=== PATIENT | male | born 1975 ===

== ENCOUNTER 2018-04-13 10:36 | Inpatient (IN) | payer OTHER ==
[2018-04-13 10:40] VITALS: BMI 31.5
[2018-04-13 10:49] LABS: BASO # 0.1 K/uL (0.0-0.2); BASO % 0.4 % (0.0-2.0); EOS # 3.3 K/uL (0.0-0.7); EOS % 16.7 % (0.0-4.0); HEMOGLOBIN 17.3 g/dL (12.0-18.0); LYMPH # 10.4 K/uL (1.0-4.3); LYMPH % 51.8 % (20.0-40.0); MEAN CELL VOLUME 95.7 fL (80.0-94.0); MEAN CORPUSCULAR HEMOGLOBIN 31.1 pg (27.0-31.0); MEAN CORPUSCULAR HGB CONC 32.5 g/dL (33.0-37.0); MEAN PLATELET VOLUME 8.1 fL (7.2-11.7); MONO # 0.9 K/uL (0.0-0.8); MONO % 4.6 % (0.0-10.0); NEUT # 5.3 K/uL (1.8-7.0); NEUT % 26.5 % (50.0-75.0); PLATELET COUNT 241 K/uL (130-400); RBC 5.57 Mil/uL (4.40-5.90); RED CELL DISTRIBUTION WIDTH 12.9 % (11.5-14.5)
[2018-04-13] MEDS ORDERED: Heparin25000 units/250ml 1/2NS 25,000 UNITS/250 ML BAG IV STA (10:53)
[2018-04-13] MEDS ORDERED: Sodium Chloride 0.9% 1,000 ML IV STA (10:53)
[2018-04-13] MEDS ORDERED: Aspirin 325 mg EC Tablets PO STA (10:53)
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
[2018-04-13 10:58] LABS: INR 1.2; PROTHROMBIN TIME 12.8 SECONDS (9.7-12.2)
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
[2018-04-13 11:02] LABS: ALB/GLOB RATIO 1.6 (1.0-2.1); ALBUMIN 4.3 g/dL (3.5-5.0); BLOOD UREA NITROGEN 18 mg/dL (9-20); CALCIUM 8.8 mg/dl (8.6-10.4); GFR NON-AFRICAN AMERICAN > 60
[2018-04-13] MEDS ORDERED: Midazolam 2 MG/2 ML VIAL IVP ONE (11:04)
[2018-04-13] MEDS ORDERED: Midazolam 2 MG/2 ML VIAL ONE ×2 (11:04→11:43)
[2018-04-13 11:06] LABS: ALT/SGPT 190 U/L (21-72); AST/SGOT 150 U/L (17-59)
[2018-04-13] MEDS ORDERED: Iodixanol 320 MG/ML 200 ML BOTTLE IV ONE (11:11)
[2018-04-13] MEDS: Fosphenytoin 1,000 MG in Sodium Chloride 0.9% 50 ML IV STA ×2 (11:22→12:15)
[2018-04-13] MEDS ORDERED: Lidocaine 2% MPF (5 ml) Inj ONE (11:28)
[2018-04-13] MEDS ORDERED: Rocuronium 10 mg/ml (5 ml) ONE (11:43)
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
[2018-04-13] MEDS: Midazolam 50 mg/10 ml 100 MG in Dextrose 5% In Water 80 ML IV SCH (11:51)
[2018-04-13] MEDS ORDERED: Heparin25000 units/250ml 1/2NS 25,000 UNITS/250 ML BAG IV ONE (11:56)
--- NOTE | 2018-04-13 12:00 | CP.PCM.HP ---
<Maggie Aguilar V - Last Filed: 04/13/18 15:23> Meds Allergies/Adverse Reactions: Allergies Allergy/AdvReac Type Severity Reaction Status Date / Time No Known Allergies Allergy Unverified 04/13/18 10:42 Results - Vital Signs Recent Vital Signs: Last Vital Signs Temp 94.8 F L 04/13/18 13:00 Pulse 87 04/13/18 13:21 Resp 23 04/13/18 13:21 BP 102/72 04/13/18 13:21 Pulse Ox 100 04/13/18 13:21 - Labs Result Diagrams: 04/13/18 10:46 04/13/18 13:29 Labs: Laboratory Results - last 24 hr 04/13/18 04/13/18 04/13/18 10:46 10:46 10:46 WBC 20.0 H RBC 5.57 Hgb 17.3 Hct 53.3 H MCV 95.7 H MCH 31.1 H MCHC 32.5 L RDW 12.9 Plt Count 241 MPV 8.1 Neut % (Auto) 26.5 L Lymph % (Auto) 51.8 H [place] % (Auto) 4.6 Eos % (Auto) 16.7 H Baso % (Auto) 0.4 Neut # (Auto) 5.3 Lymph # (Auto) 10.4 H [place] # (Auto) 0.9 H Eos # (Auto) 3.3 H Baso # (Auto) 0.1 Neutrophils % (Manual) 25 L Lymphocytes % (Manual) 43 H Reactive Lymphs % 8 H Monocytes % (Manual) 7 Eosinophils % (Manual) 17 H Platelet Estimate Normal RBC Morphology Normal PT 12.8 H INR 1.2 APTT 34 Sodium 135 Potassium 3.3 L Chloride 101 Carbon Dioxide 18 L Anion Gap 20 BUN 18 Creatinine 1.3 Est GFR ( Amer) > 60 Est GFR (Non-Af Amer) > 60 Random Glucose 255 H Hemoglobin A1c Calcium 8.8 Total Bilirubin 0.8 AST 150 H ALT 190 H Alkaline Phosphatase 69 Lactate Dehydrogenase 1027 H Total Creatine Kinase 154 Troponin I 0.0150 Total Protein 6.9 Albumin 4.3 Globulin 2.6 Albumin/Globulin Ratio 1.6 Urine Color Urine Clarity Urine pH Ur Specific [place] Urine Protein Urine Glucose (UA) Urine Ketones Urine Blood Urine Nitrate Urine Bilirubin Urine Urobilinogen Ur Leukocyte Esterase Urine WBC (Auto) Urine RBC (Auto) Ur Squamous Epith Cells Urine Bacteria Urine Opiates Screen Urine Methadone Screen Ur Barbiturates Screen Ur Phencyclidine Scrn Ur Amphetamines Screen U Benzodiazepines Scrn U Oth Cocaine Metabols U Cannabinoids Screen Blood Type Antibody Screen 04/13/18 04/13/18 04/13/18 10:53 10:53 13:19 WBC RBC Hgb Hct MCV MCH MCHC RDW Plt Count MPV Neut % (Auto) Lymph % (Auto) [place] % (Auto) Eos % (Auto) Baso % (Auto) Neut # (Auto) Lymph # (Auto) [place] # (Auto) Eos # (Auto) Baso # (Auto) Neutrophils % (Manual) Lymphocytes % (Manual) Reactive Lymphs % Monocytes % (Manual) Eosinophils % (Manual) Platelet Estimate RBC Morphology PT INR APTT Sodium Potassium Chloride Carbon Dioxide Anion Gap BUN Creatinine Est GFR ( Amer) Est GFR (Non-Af Amer) Random Glucose Hemoglobin A1c 5.6 Calcium Total Bilirubin AST ALT Alkaline Phosphatase Lactate Dehydrogenase Total Creatine Kinase Troponin I Total Protein Albumin Globulin Albumin/Globulin Ratio Urine Color Urine Clarity Urine pH Ur Specific [place] Urine Protein Urine Glucose (UA) Urine Ketones Urine Blood Urine Nitrate Urine Bilirubin Urine Urobilinogen Ur Leukocyte Esterase Urine WBC (Auto) Urine RBC (Auto) Ur Squamous Epith Cells Urine Bacteria Urine Opiates Screen Positive H Urine Methadone Screen Negative Ur Barbiturates Screen Negative Ur Phencyclidine Scrn Negative Ur Amphetamines Screen Negative U Benzodiazepines Scrn Positive U Oth Cocaine Metabols Negative U Cannabinoids Screen Negative Blood Type O POSITIVE Antibody Screen Negative 04/13/18 04/13/18 13:19 13:29 WBC RBC Hgb Hct MCV MCH MCHC RDW Plt Count MPV Neut % (Auto) Lymph % (Auto) [place] % (Auto) Eos % (Auto) Baso % (Auto) Neut # (Auto) Lymph # (Auto) [place] # (Auto) Eos # (Auto) Baso # (Auto) Neutrophils % (Manual) Lymphocytes % (Manual) Reactive Lymphs % Monocytes % (Manual) Eosinophils % (Manual) Platelet Estimate RBC Morphology PT INR APTT Sodium 137 Potassium 4.6 Chloride 102 Carbon Dioxide 25 Anion Gap 14 BUN 19 Creatinine 1.2 Est GFR ( Amer) > 60 Est GFR (Non-Af Amer) > 60 Random Glucose 178 H D Hemoglobin A1c Calcium 8.1 L Total Bilirubin 0.7 AST 281 H D ALT 359 H D Alkaline Phosphatase 88 Lactate Dehydrogenase Total Creatine Kinase Troponin I Total Protein 6.7 Albumin 4.2 Globulin 2.5 Albumin/Globulin Ratio 1.6 Urine Color Yellow Urine Clarity Hazy Urine pH 7.0 Ur Specific [place] 1.029 Urine Protein 3+ H Urine Glucose (UA) 1+ H Urine Ketones Negative Urine Blood 1+ H Urine Nitrate Negative Urine Bilirubin Negative Urine Urobilinogen Normal Ur Leukocyte Esterase Neg Urine WBC (Auto) 3 Urine RBC (Auto) 10 H Ur Squamous Epith Cells < 1 Urine Bacteria Rare Urine Opiates Screen Urine Methadone Screen Ur Barbiturates Screen Ur Phencyclidine Scrn Ur Amphetamines Screen U Benzodiazepines Scrn U Oth Cocaine Metabols U Cannabinoids Screen Blood Type Antibody Screen Assessment & Plan (1) Cardiac arrest Status: Acute (2) STEMI (ST elevation myocardial infarction) Status: Acute (3) Leukocytosis Status: Acute (4) Transaminitis Status: Acute (5) Myoclonic jerking Status: Acute (6) Prophylactic measure Status: Acute Attending/Attestation - Attestation I have personally seen and examined this patient.: Yes I have fully participated in the care of the patient.: Yes I have reviewed all pertinent clinical information: Yes Notes (Text): This is a Imtiaz Dumonte brought in by 2 friends. Following a witnessed respiratory arrest noted that patient was speaking prior to while trying to apparently fix his car however when patient was reassessed by his friend noted that he was cyanotic mottled agonal breathing frothing at the mouth he pulled a mild bica rbonate attempted to shake him however he did not respond called 911 please to arrive to started compressions paramedics arrived resumed compressions 1 round with IV. Brought to the hospital prior to the ED needed a second dose of epi in the ED had pulse code heart protocol was initiated patient noted to have seizure in the ED as well brought up to cardiac cath had seizure in spite of Versed and Cerebyx anesthesia was called to give additional sedation. Following completion of cath noted for vasospasm only. Patient brought to the intensive care unit code freeze initiated. Neuro on board help appreciated CT head ordered patient started on empiric antibiotic coverage given leukocytosis blood cultures and urine culture was completed. Patient per discussion with a friend who is present noted to be undergoing stress with his and they are currently unclear what medical history we will try to obtain from [facility] however they will not release information to us given inaccurate date of and patient noted to have lost his wallet per friend. 1. Cardiopulmonary arrest Assessment/plan Unclear etiology will need to rule out drugs unable to obtain further information with regards to patient's medical history Intubated in the field Code heart initiated in ED given given EKG findings Code heart cardiac cath by Dr. Brady help appreciated Noted coronary vasospasm per discussion with Dr. Brady and no longer needs heparin drip Code freeze patient admitted to the intensive care unit Case discussed with Dr. Sheriff Patient is on vent Neuro on board help appreciated 2. Anoxic brain injury Assessment/plan Noted at least 15-20 minutes prior to [place] based on discussions with both family friend, mcat tutor, and emergency room staff CT head ordered Neurology neuro on board Code freeze initiated Patient is on sedation and likely paralytic noted mild type jerks both upper portion of the body as well as the left lower extremity 3. Leukocytosis Assessment/plan Likely inflammatory response given the possible rest Blood cultures x2 ordered UA urine culture ordered Pro-calcitonin ordered Patient started on empiric IV antibiotic therapy including Zosyn and vancomycin 4. Transaminitis Assessment/plan Either acute phase reactant or reactive secondary to arrest Hepatitis panel ordered 5. Coronary vasospasm Assessment/plan Cardiology on board help appreciated Code heart findings as of April 13, 2018 Will need to follow you UDS 5. Prophylactic measure Assessment/plan Per code heart protocol patient did receive aspirin, Brilinta, heparin bolus Code freeze candidate Sedation Empiric antibiotics If CT head is negative for any type of bleed DVT prophylaxis Neurochecks Awaiting patient family was told by family friend noted in resident prior to note that because it is on his way and noted patient does not have a good rapport with his However we will need to follow-up in terms of likely that the make decisions for the patient When patient identity is confirmed please follow-up with his PMD in regards to full information terms of his medical history <Dave Samuels - Last Filed: 04/13/18 18:52> History of Present Illness - History of Present Illness History of Present Illness: Dvae Samuels PGY1 H&P for Dr. Aguilar History obtained as per Dodie and , friend of patient. 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 Pt is a 41yo M with unknown PMH brought in by EMS after being found by a friend and coworker unresponsive in his car. Patient was in the parking lot of his [facility] [employer] working on his car with the jordan up when he was approached by his friend. At about 9:40am, the patient seemed normal to his friend, they were talking and moving normally, did not appear in acute distress. He appeared to be working on his car. After getting some supplies, friend returned to find patient slumped over in the bulk driver's seat of the car with the car door open and window rolled down, music was on. He was unresponsive, breathing heavily, and his skin looked blue. He was foaming at the mouth as per the friend. He took the patient out of the car, tried to wake up friend but he was unresponsive. He called 911 and police came 10 minutes later. EMS was called. PD first responded and performed compressions until EMS arrived. 1 round of ACLS with epi was performed and ROSC was achieved, as per EMS. Pt was intubated and IO access was obtained in the field. Per mcat tutor, eyes appeared dilated. Skin appeared cyanotic, mottled, and patient was not responsive. No shock was delivered. Rhythm strip appeared to show ST depressions. Patient was transported to the ED. Per mcat tutor, patient became bradycardic and was given dose of epi. In the ED, nurse reported that patient has pulse entire time. As per ED physician, there was about 15-20 minutes total of down time. In the ED, patient had myotonic jerks. Versed and cerebrex were started. SxH: unknown FamH: unknown SocH: social issues, unspecified stressors as per friend. from , marital problems. 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 Allergies: NKDA Meds: unknown PMD: unkown Present on Admission - Present on Admission Any Indicators Present on Admission: No Review of Systems - Review of Systems Systems not reviewed;Unavailable: Altered Mental Status, Intubated Review of Systems: unable to assess review of systems at this time. Past Patient History - Past Social History Smoking Status: Unknown If Ever Smoked - PSYCHIATRIC Hx Substance Use: No Physical Exam - Constitutional Appears: Other - Head Exam Head Exam: ATRAUMATIC, NORMOCEPHALIC - Eye Exam Pupil Exam: Miosis Additional comments: L eye more reactive to light - ENT Exam ENT Exam: Normal Exam Additional comments: endotracheal tube in place - Neck Exam Additional comments: no signs of asphyxiation - Respiratory Exam Respiratory Exam: NORMAL BREATHING PATTERN. absent: Rales, Rhonchi, Wheezes Additional comments: pt on ventilation - Cardiovascular Exam Cardiovascular Exam: REGULAR RHYTHM, +S1, +S2 - GI/Abdominal Exam GI & Abdominal Exam: Normal Bowel Sounds, Soft. absent: Distended - Extremities Exam Extremities exam: Negative for: joint swelling, pedal edema - Back Exam Back exam: absent: rash noted - Neurological Exam Additional comments: unresponsive to commands unresponsive to painful stimuli - Skin Skin Exam: Normal Color Results - Vital Signs Recent Vital Signs: Last Vital Signs Temp 97.5 F L 04/13/18 11:18 Pulse 98 H 04/13/18 11:19 Resp 12 04/13/18 11:18 BP 141/80 04/13/18 11:19 Pulse Ox 100 04/13/18 11:24 - Labs Result Diagrams: 04/13/18 10:46 04/13/18 13:29 Labs: Laboratory Results - last 24 hr 04/13/18 04/13/18 04/13/18 10:46 10:46 10:46 WBC 20.0 H RBC 5.57 Hgb 17.3 Hct 53.3 H MCV 95.7 H MCH 31.1 H MCHC 32.5 L RDW 12.9 Plt Count 241 MPV 8.1 Neut % (Auto) 26.5 L Lymph % (Auto) 51.8 H [place] % (Auto) 4.6 Eos % (Auto) 16.7 H Baso % (Auto) 0.4 Neut # (Auto) 5.3 Lymph # (Auto) 10.4 H [place] # (Auto) 0.9 H Eos # (Auto) 3.3 H Baso # (Auto) 0.1 PT 12.8 H INR 1.2 APTT 34 Sodium 135 Potassium 3.3 L Chloride 101 Carbon Dioxide 18 L Anion Gap 20 BUN 18 Creatinine 1.3 Est GFR ( Amer) > 60 Est GFR (Non-Af Amer) > 60 Random Glucose 255 H Hemoglobin A1c Calcium 8.8 Total Bilirubin 0.8 AST 150 H ALT 190 H Alkaline Phosphatase 69 Lactate Dehydrogenase 1027 H Total Creatine Kinase 154 Troponin I 0.0150 Total Protein 6.9 Albumin 4.3 Globulin 2.6 Albumin/Globulin Ratio 1.6 Blood Type Antibody Screen 04/13/18 04/13/18 10:53 10:53 WBC RBC Hgb Hct MCV MCH MCHC RDW Plt Count MPV Neut % (Auto) Lymph % (Auto) [place] % (Auto) Eos % (Auto) Baso % (Auto) Neut # (Auto) Lymph # (Auto) [place] # (Auto) Eos # (Auto) Baso # (Auto) PT INR APTT Sodium Potassium Chloride Carbon Dioxide Anion Gap BUN Creatinine Est GFR ( Amer) Est GFR (Non-Af Amer) Random Glucose Hemoglobin A1c 5.6 Calcium Total Bilirubin AST ALT Alkaline Phosphatase Lactate Dehydrogenase Total Creatine Kinase Troponin I Total Protein Albumin Globulin Albumin/Globulin Ratio Blood Type O POSITIVE Antibody Screen Negative Assessment & Plan - Assessment and Plan (Free Text) Assessment: 41yo M with unknown PMH brought in by EMS after being found by a friend and coworker unresponsive in his car. 1 round ACLS performed. Code heart, found to have vasospasm. Uncontrolled myoclonic seizures. Plan: Cardiopulmonary arrest Intubated in the field, ACLS performed Code heart in ED Cardiac Cath as per Dr. Jose Antonio trivedi vasospasm, no occlusion Code freeze on mechanical ventilation UDS + benzo, opiates Critical care, Dr. Sheriff consulted - help appreciated Anoxic brain injury downtime of 15-20min f/u CT head seizure activity, myoclonic jerking Versed bobby Corcoran 1500 IV Code freeze Neuro consulted, Dr. Escobar - help appreciated Leukocytosis likely secondary to stress f/u BCx, UCx f/u procal IV Zosyn and vancomycin Transaminitis unknown PMH f/u hepatitis panel Dispo: requiring further information regarding patient's past medical and social history. utilize family members () to provide information so etiology can be determined. Case reviewed with Dr. Aguilar
[2018-04-13 12:06] LABS: EOSINOPHIL 17 % (0-4); LYMPHOCYTE 43 % (20-40); MONOCYTE 7 % (0-10); NEUTROPHIL 25 % (50-75); PLATELET ESTIMATE NORMAL (NORMAL); REACTIVE LYMPHOCYTES 8 % (0-0); TOTAL CELLS COUNTED 100
--- NOTE | 2018-04-13 12:16 | CP.PCM.CON ---
History of Present Illness - History of Present Illness History of Present Illness: 41 Male presented to ER in coma and seizing Patient was cyanotic and frothy prior to EMS arrival Received Epi x 2 in the field Intubated and hypotensive on Levophed Unresponsive to commands and pain EKG shown ST elevations in AVR and diffuse ST deppressions suggestive of L Main occlusion Code heart activated s/p Cath 1. Normal coronaries 2. Normal EF A/P: Likely L Main spasm Vs. severe Hypoxemia Hypotension on pressors Likely hypoxemic brain injury due to prolonged hypoxemia. Poor prognosis ICU management DVT/GI prophylaxis Drug screen Will follow Thanks Past Patient History - Past Social History Smoking Status: Unknown If Ever Smoked - PSYCHIATRIC Hx Substance Use: No Meds Allergies/Adverse Reactions: Allergies Allergy/AdvReac Type Severity Reaction Status Date / Time No Known Allergies Allergy Unverified 04/13/18 10:42 - Medications Medications: Current Medications Midazolam HCl 100 mg/ Dextrose 100 mls @ 2 mls/hr IV .Q24H [facility]; Protocol Last Admin: 04/13/18 11:51 Dose: 2 mls/hr Norepinephrine Bitartrate 4 mg (/ Sodium Chloride) 254 mls @ 15.24 mls/hr IV .[id number] PRN; Protocol PRN Reason: TITRATE PER MD ORDER Last Admin: 04/13/18 11:03 Dose: 15.24 mls/hr Norepinephrine Bitartrate 4 mg (/ Dextrose) 254 mls @ 15.24 mls/hr IV .[id number] PRN; Protocol PRN Reason: TITRATE PER MD ORDER Heparin Sodium/Sodium Chloride (Heparin 36628 Units/250ml 1/2 Normal Saline) 25,000 units in 250 mls @ 11.975 mls/hr IV .[id number] ONE; Protocol Stop: 04/14/18 08:48 Last Admin: 04/13/18 10:53 Dose: 11.975 mls/hr Results - Vital Signs Recent Vital Signs: Last Vital Signs Temp 97.5 F L 04/13/18 11:18 Pulse 98 H 04/13/18 11:19 Resp 12 04/13/18 11:18 BP 141/80 04/13/18 11:19 Pulse Ox 100 04/13/18 11:24 - Labs Result Diagrams: 04/13/18 10:46 04/13/18 10:46 Labs: Laboratory Results - last 24 hr 04/13/18 04/13/18 04/13/18 10:46 10:46 10:46 WBC 20.0 H RBC 5.57 Hgb 17.3 Hct 53.3 H MCV 95.7 H MCH 31.1 H MCHC 32.5 L RDW 12.9 Plt Count 241 MPV 8.1 Neut % (Auto) 26.5 L Lymph % (Auto) 51.8 H [place] % (Auto) 4.6 Eos % (Auto) 16.7 H Baso % (Auto) 0.4 Neut # (Auto) 5.3 Lymph # (Auto) 10.4 H [place] # (Auto) 0.9 H Eos # (Auto) 3.3 H Baso # (Auto) 0.1 Neutrophils % (Manual) 25 L Lymphocytes % (Manual) 43 H Reactive Lymphs % 8 H Monocytes % (Manual) 7 Eosinophils % (Manual) 17 H Platelet Estimate Normal RBC Morphology Normal PT 12.8 H INR 1.2 APTT 34 Sodium 135 Potassium 3.3 L Chloride 101 Carbon Dioxide 18 L Anion Gap 20 BUN 18 Creatinine 1.3 Est GFR ( Amer) > 60 Est GFR (Non-Af Amer) > 60 Random Glucose 255 H Hemoglobin A1c Calcium 8.8 Total Bilirubin 0.8 AST 150 H ALT 190 H Alkaline Phosphatase 69 Lactate Dehydrogenase 1027 H Total Creatine Kinase 154 Troponin I 0.0150 Total Protein 6.9 Albumin 4.3 Globulin 2.6 Albumin/Globulin Ratio 1.6 Blood Type Antibody Screen 04/13/18 04/13/18 10:53 10:53 WBC RBC Hgb Hct MCV MCH MCHC RDW Plt Count MPV Neut % (Auto) Lymph % (Auto) [place] % (Auto) Eos % (Auto) Baso % (Auto) Neut # (Auto) Lymph # (Auto) [place] # (Auto) Eos # (Auto) Baso # (Auto) Neutrophils % (Manual) Lymphocytes % (Manual) Reactive Lymphs % Monocytes % (Manual) Eosinophils % (Manual) Platelet Estimate RBC Morphology PT INR APTT Sodium Potassium Chloride Carbon Dioxide Anion Gap BUN Creatinine Est GFR ( Amer) Est GFR (Non-Af Amer) Random Glucose Hemoglobin A1c 5.6 Calcium Total Bilirubin AST ALT Alkaline Phosphatase Lactate Dehydrogenase Total Creatine Kinase Troponin I Total Protein Albumin Globulin Albumin/Globulin Ratio Blood Type O POSITIVE Antibody Screen Negative
--- NOTE | 2018-04-13 12:58 | CP.PCM.CON ---
History of Present Illness - History of Present Illness History of Present Illness: Chief complaints: Cardiac arrest HPI: Patient is a 41-year-old male name AND, most of the history is unknown, information was taken from the chart. Patient was brought into the emergency room following a cardiac arrest sustained in the field, unclear REASON, patient received 2 epinephrine and CPR, and patient also had episodes of seizure activities. As the patient has abnormal EKG, with the ST elevation, patient underwent emergency angiogram, determined that he had vasospasm of the coronaries. Patient is now in the ICU. He is on full support ventilation Unresponsive. Blood pressure is being supported with the norepinephrine. He is also receiving IV fluid at this time AND SEDATION Past medical history, family history and a further history is unavailable. On examination: Patient is comatose now. He is on ventilator, prvc 18, 500, 100%. Heart rate is 88 bpm the blood pressure is 86/53 saturation is 100%. Norepinephrine drip running at 4 mics per minute also on Versed and IV fluid. Patient's labs reviewed Nonspecific. Chest x-ray ET tube in position. But there is no evidence of any infiltrative changes EKG initially showed ST elevation MA and also ST depressions. Further drug screen and evaluation is currently pending Coronary angiogram is negative Assessment and recommendation: Patient is a 41-year-old male without known medical history had a cardiac event cardiac arrest, prolonged CPR, and a post cardiac arrest and seizure activities likely anoxic. The cause is unclear. Most likely coronary spasm, underlying drugs cannot be ruled out. Will get a neurological evaluation. Patient will need CT scan of the head. On therapeutic hypothermia may be beneficial for this patient. Will control the urodynamics cannot support that the hemodynamics sedation as tolerated DVT GI prophylaxis will support ventilation and will follow the patient Past Patient History - Past Social History Smoking Status: Unknown If Ever Smoked - PSYCHIATRIC Hx Substance Use: No Meds Allergies/Adverse Reactions: Allergies Allergy/AdvReac Type Severity Reaction Status Date / Time No Known Allergies Allergy Unverified 04/13/18 10:42 - Medications Medications: Current Medications Midazolam HCl 100 mg/ Dextrose 100 mls @ 2 mls/hr IV .Q24H [facility]; Protocol Last Admin: 04/13/18 11:51 Dose: 2 mls/hr Norepinephrine Bitartrate 4 mg (/ Sodium Chloride) 254 mls @ 15.24 mls/hr IV .[id number] PRN; Protocol PRN Reason: TITRATE PER MD ORDER Last Admin: 04/13/18 11:03 Dose: 15.24 mls/hr Norepinephrine Bitartrate 4 mg (/ Dextrose) 254 mls @ 15.24 mls/hr IV .[id number] PRN; Protocol PRN Reason: TITRATE PER MD ORDER Heparin Sodium/Sodium Chloride (Heparin 45951 Units/250ml 1/2 Normal Saline) 25,000 units in 250 mls @ 11.975 mls/hr IV .[id number] ONE; Protocol Stop: 04/14/18 08:48 Last Admin: 04/13/18 10:53 Dose: 11.975 mls/hr Sodium Chloride (Sodium Chloride 0.9%) 1,000 mls @ 150 mls/hr IV .[id number] [facility] Results - Vital Signs Recent Vital Signs: Last Vital Signs Temp 97.5 F L 04/13/18 11:18 Pulse 98 H 04/13/18 11:19 Resp 12 04/13/18 11:18 BP 141/80 04/13/18 11:19 Pulse Ox 100 04/13/18 12:34 - Labs Result Diagrams: 04/13/18 10:46 04/13/18 10:46 Labs: Laboratory Results - last 24 hr 04/13/18 04/13/18 04/13/18 10:46 10:46 10:46 WBC 20.0 H RBC 5.57 Hgb 17.3 Hct 53.3 H MCV 95.7 H MCH 31.1 H MCHC 32.5 L RDW 12.9 Plt Count 241 MPV 8.1 Neut % (Auto) 26.5 L Lymph % (Auto) 51.8 H [place] % (Auto) 4.6 Eos % (Auto) 16.7 H Baso % (Auto) 0.4 Neut # (Auto) 5.3 Lymph # (Auto) 10.4 H [place] # (Auto) 0.9 H Eos # (Auto) 3.3 H Baso # (Auto) 0.1 Neutrophils % (Manual) 25 L Lymphocytes % (Manual) 43 H Reactive Lymphs % 8 H Monocytes % (Manual) 7 Eosinophils % (Manual) 17 H Platelet Estimate Normal RBC Morphology Normal PT 12.8 H INR 1.2 APTT 34 Sodium 135 Potassium 3.3 L Chloride 101 Carbon Dioxide 18 L Anion Gap 20 BUN 18 Creatinine 1.3 Est GFR ( Amer) > 60 Est GFR (Non-Af Amer) > 60 Random Glucose 255 H Hemoglobin A1c Calcium 8.8 Total Bilirubin 0.8 AST 150 H ALT 190 H Alkaline Phosphatase 69 Lactate Dehydrogenase 1027 H Total Creatine Kinase 154 Troponin I 0.0150 Total Protein 6.9 Albumin 4.3 Globulin 2.6 Albumin/Globulin Ratio 1.6 Blood Type Antibody Screen 04/13/18 04/13/18 10:53 10:53 WBC RBC Hgb Hct MCV MCH MCHC RDW Plt Count MPV Neut % (Auto) Lymph % (Auto) [place] % (Auto) Eos % (Auto) Baso % (Auto) Neut # (Auto) Lymph # (Auto) [place] # (Auto) Eos # (Auto) Baso # (Auto) Neutrophils % (Manual) Lymphocytes % (Manual) Reactive Lymphs % Monocytes % (Manual) Eosinophils % (Manual) Platelet Estimate RBC Morphology PT INR APTT Sodium Potassium Chloride Carbon Dioxide Anion Gap BUN Creatinine Est GFR ( Amer) Est GFR (Non-Af Amer) Random Glucose Hemoglobin A1c 5.6 Calcium Total Bilirubin AST ALT Alkaline Phosphatase Lactate Dehydrogenase Total Creatine Kinase Troponin I Total Protein Albumin Globulin Albumin/Globulin Ratio Blood Type O POSITIVE Antibody Screen Negative
[2018-04-13 13:33] LABS: SQUAMOUS EPITHIAL < 1 /hpf (0-5); URINE BACTERIA RARE (<OCC); URINE BILIRUBIN NEGATIVE (NEGATIVE); URINE BLOOD 1+ (NEGATIVE); URINE CLARITY Hazy (Clear); URINE COLOR Yellow (YELLOW); URINE GLUCOSE (UA) 1+ mg/dL (Normal); URINE LEUKOCYTE ESTERASE NEG Leu/uL (Negative); URINE PROTEIN 3+ mg/dL (NEGATIVE); URINE UROBILINOGEN NORMAL mg/dL (0.2-1.0)
--- NOTE | 2018-04-13 13:47 | RAD ---
Date of service: 04/13/2018 HISTORY: chest pain COMPARISON: No prior. FINDINGS: In situ ETT, tip of which lies approximately 5.1 cm above alan. NGT is present, the tip which is doubled back upon itself located within the distal esophagus. LUNGS: Bibasilar atelectasis; rule out developing infiltrates PLEURA: No significant pleural effusion identified, no pneumothorax apparent. CARDIOVASCULAR: No aortic atherosclerotic calcification present. Normal cardiac size. No pulmonary vascular congestion. OSSEOUS STRUCTURES: No significant abnormalities. VISUALIZED UPPER ABDOMEN: Normal. OTHER FINDINGS: None. IMPRESSION: ETT as above. NGT is doubled back on itself of within the distal esophagus and should be reposition. These findings discussed with Dr. Nguyen at approximately 1:40 p.m. with written down and read back verification.. Bibasilar atelectasis; rule out
[2018-04-13] MEDS: Sodium Chloride 0.9% 1,000 ML IV SCH ×3 (13:49→21:00)
[2018-04-13] MEDS ORDERED: Rocuronium 10 mg/ml (5 ml) IV ONE (13:50)
[2018-04-13] MEDS ORDERED: Vecuronium 10 mg Inj IV STA (13:51)
[2018-04-13 13:52] LABS: ALB/GLOB RATIO 1.6 (1.0-2.1); ALBUMIN 4.2 g/dL (3.5-5.0); ALT/SGPT 359 U/L (21-72); AST/SGOT 281 U/L (17-59); BLOOD UREA NITROGEN 19 mg/dL (9-20); CALCIUM 8.1 mg/dl (8.6-10.4); GFR NON-AFRICAN AMERICAN > 60
[2018-04-13 13:55] LABS: BARBITURATES, UR NEGATIVE (NEGATIVE); BENZODIAZEPINES, UR POSITIVE (NEGATIVE); OPIATES, UR POSITIVE (NEGATIVE); PHENCYCLIDINE, UR NEGATIVE (NEGATIVE)
[2018-04-13] MEDS ORDERED: Vancomycin 500mg/D5W 100 ml 500 MG/100 ML BAG IVPB SCH (14:15)
--- NOTE | 2018-04-13 14:25 | PCM.TLSTRK ---
TeleStroke Consultation - Consultation This telehealth visit and patient is being seen on: 04/13/18 Telehealth services using bi-directional audio/video at [facility]: [facility] Active/open-ended communication was used to verify the patient's full name, and date of with: Hospital staff/MD at patient's bedside - History of Present Illness Chief/Complaint/History of Present of Illness: The patient is a 41-year-old man with an unknown past medical history who was found in his car by his friend in respiratory distress, later was pulseless, police arrived, started CPR, later EMS arrived, gave epi and then atropine, ROSC achieved, brought to the ED, had several generalized tonic-clonic seizures. EKG showed ST elevation, and the patient was taken to the slab conditioner supervisor, but no occlusion was noted, just vasospasm. The patient is currently in the ICU, still having some spastic movements on Precedex, Versed drip and received Keppra 1000 mg load. On video exam, the patient is intubated, sedated, not responsive to painful stimulus and has jerky myoclonic movements that occur with periodicity. Pupils are reactive on the left and less so on the right, but overall constricted. He does open his eyes spontaneously during these movements. GCS 6T TeleStroke Patient History - Past Family History Pertinent Family History: Problem Relation Age of Onset - Past Social History Smoking Status: Unknown If Ever Smoked - PSYCHIATRIC Hx Substance Use: No Meds Allergies/Adverse Reactions: Allergies Allergy/AdvReac Type Severity Reaction Status Date / Time No Known Allergies Allergy Unverified 04/13/18 10:42 - Medications Medications: Current Medications Midazolam HCl 100 mg/ Dextrose 100 mls @ 2 mls/hr IV .Q24H ROBERT; Protocol Last Admin: 04/13/18 11:51 Dose: 2 mls/hr Norepinephrine Bitartrate 4 mg (/ Sodium Chloride) 254 mls @ 15.24 mls/hr IV .[id number] PRN; Protocol PRN Reason: TITRATE PER MD ORDER Last Admin: 04/13/18 11:03 Dose: 15.24 mls/hr Norepinephrine Bitartrate 4 mg (/ Dextrose) 254 mls @ 15.24 mls/hr IV .[id number] PRN; Protocol PRN Reason: TITRATE PER MD ORDER Heparin Sodium/Sodium Chloride (Heparin 87019 Units/250ml 1/2 Normal Saline) 25,000 units in 250 mls @ 11.975 mls/hr IV .[id number] ONE; Protocol Stop: 04/14/18 08:48 Last Admin: 04/13/18 10:53 Dose: 11.975 mls/hr Sodium Chloride (Sodium Chloride 0.9%) 1,000 mls @ 150 mls/hr IV .[id number] ROBERT Last Admin: 04/13/18 13:49 Dose: 150 mls/hr Cisatracurium Besylate 100 mg/ (Dextrose) 250 mls @ 41.03 mls/hr IV .Q6H6M PRN; Protocol PRN Reason: Seizure activity Levetiracetam 1,000 mg/ (Dextrose) 110 mls @ 420 mls/hr IVPB Q12H ROBERT Pantoprazole Sodium (Protonix Inj) 40 mg IVP DAILY ROBERT Vecuronium Dawson (Vecuronium 10 Mg Inj) 5 mg IV ONCE STA Stop: 04/13/18 13:52 Review of Systems - Review of Systems Systems not reviewed;Unavailable: Intubated NIHSS Stroke Scale - How Severe is the Stroke Level of Consciousness: 3=Unresponsive LOC to Questions: 2=Neither correct LOC to commands: 2=Neither correct Best Gaze: 0=Normal Visual: 0=No visual loss Facial: 0=Normal Motor Arm - Left: 4=No movement Motor Arm - Right: 4=No movement Motor Leg - Left: 4=No movement Motor Leg - Right: 4=No movement Limb Ataxia: 0=Absent Sensory: 2=Severe to total loss Best Language: 3=Mute Dysarthia: 2=Severe, near unintelligible or worse Extinction & Inattention (Neglect): 0=Normal, no object Score: 30 TeleStroke Exam - General Medical Examination Vital Signs (last 24 hours): Vital Signs - 24 hr 04/13/18 04/13/18 04/13/18 10:36 10:39 10:49 Temperature Pulse Rate 75 55 L Pulse Rate [ 55 L Apical] Respiratory 20 Rate Blood Pressure 106/76 69/40 L Blood Pressure [Right] O2 Sat by Pulse 100 100 Oximetry 04/13/18 04/13/18 04/13/18 10:50 10:55 11:03 Temperature Pulse Rate 92 H 80 Pulse Rate [ 77 Apical] Respiratory 12 Rate Blood Pressure 81/43 L 75/33 L Blood Pressure 107/44 L [Right] O2 Sat by Pulse 100 100 Oximetry 04/13/18 04/13/18 04/13/18 11:18 11:19 12:34 Temperature 97.5 F L Pulse Rate 101 H 98 H Pulse Rate [ Apical] Respiratory 12 Rate Blood Pressure 75/33 L 141/80 Blood Pressure [Right] O2 Sat by Pulse 100 Oximetry 04/13/18 04/13/18 04/13/18 13:00 13:11 13:20 Temperature 94.8 F L Pulse Rate 81 85 Pulse Rate [ Apical] Respiratory 18 22 Rate Blood Pressure Blood Pressure [Right] O2 Sat by Pulse 99 89 L Oximetry 04/13/18 13:21 Temperature Pulse Rate 87 Pulse Rate [ Apical] Respiratory 23 Rate Blood Pressure 102/72 Blood Pressure [Right] O2 Sat by Pulse 100 Oximetry Weight in kilograms: 91.648816 TeleStroke Plan - Review Patient's current medication list, allergies and medical problems were verified by the following method: Discussion with the local physician I have reviewed all pertinent labs: Yes - Impression Impression: This is a 41-year-old man with cardiac arrest, likely has anoxic brain injury, currently having myoclonic jerks after generalized tonic-clonic seizures, on targeted temperature management, vesed, precedex and will receive keppra. - IV-tPA Administration tPA total dose in mg (MAX: 90 mg): [id number] Plan: Obtain CT head without contrast. Keppra 1500 mg loading dose. Continue versed drip as well. Consider paralytic. Medical management per ICU team. Neurology will follow.
[2018-04-13] MEDS: Cisatracurium Besylate 100 MG in Dextrose 5% In Water 240 ML IV PRN (14:51)
[2018-04-13] MEDS: Vancomycin 1 gm/NS 200 ml 1 GM/200 ML BAG IVPB SCH (16:31)
[2018-04-13] MEDS: Piperacillin/Tazobact 3.375 GM in Sodium Chloride 100 ML IVPB SCH ×2 (16:32→21:36)
[2018-04-13 16:42] LABS: ABG ALLEN TEST POS; ARTERIAL BLOOD GAS HCO3 18.8 mmol/L (21-28); ARTERIAL BLOOD GAS O2 SAT 99.7 % (95-98); ARTERIAL BLOOD GAS PCO2 39 mm/Hg (35-45); ARTERIAL BLOOD GAS PH 7.28 (7.35-7.45); ARTERIAL BLOOD GAS PO2 119 mm/Hg (80-100); ARTERIAL BLOOD GAS TCO2 19.5 mmol/L (22-28)
--- NOTE | 2018-04-13 16:52 | CT ---
Date of service: 04/13/2018 PROCEDURE: CT HEAD WITHOUT CONTRAST. HISTORY: Rule out hemorrhage. COMPARISON: None available. TECHNIQUE: Axial computed tomography images were obtained through the head/brain without intravenous contrast. Radiation dose: Total exam DLP = 1403.54 mGy-cm. This CT exam was performed using one or more of the following dose reduction techniques: Automated exposure control, adjustment of the mA and/or kV according to patient size, and/or use of iterative reconstruction technique. FINDINGS: HEMORRHAGE: No acute parenchymal, subarachnoid or extra-axial hemorrhage. BRAIN: There is mild homogeneous appearance of the brain parenchyma with subtle indistinct appearance of the corticomedullary junction. Findings could represent mild diffuse cerebral edema related to hypoxia however clinical correlation suggested. VENTRICLES: No obstructive hydrocephalus. CALVARIUM: Unremarkable. PARANASAL SINUSES: Hypertrophy of the nasal mucosa. MASTOID AIR CELLS: Unremarkable as visualized. No inflammatory changes. OTHER FINDINGS: None. IMPRESSION: No acute intracranial hemorrhage. There is mild homogeneous appearance of the brain parenchyma with subtle indistinct appearance of the corticomedullary junction. Findings could represent mild diffuse cerebral edema related to hypoxia however clinical correlation suggested. These findings discussed with Dr. Duran at 4:45 p.m. with written down and read back verification.
[2018-04-13 20:21] LABS: BASO % 0.1 % (0.0-2.0); EOS # 0.1 K/uL (0.0-0.7); EOS % 0.4 % (0.0-4.0); HEMOGLOBIN 17.9 g/dL (12.0-18.0); LYMPH # 1.1 K/uL (1.0-4.3); LYMPH % 4.5 % (20.0-40.0); MEAN CORPUSCULAR HGB CONC 33.2 g/dL (33.0-37.0); MONO # 1.4 K/uL (0.0-0.8); MONO % 5.7 % (0.0-10.0); NEUT % 89.3 % (50.0-75.0); NRBC % 0.1 % (0.0-2.0); PLATELET COUNT 271 K/uL (130-400); RBC 5.76 Mil/uL (4.40-5.90); WHITE BLOOD COUNT 24.6 K/uL (4.8-10.8)
[2018-04-13 20:25] LABS: MEAN CELL VOLUME 93.5 fL (80.0-94.0)
[2018-04-13 20:37] LABS: ALB/GLOB RATIO 1.7 (1.0-2.1); ALBUMIN 4.9 g/dL (3.5-5.0); ALT/SGPT 410 U/L (21-72); BLOOD UREA NITROGEN 18 mg/dL (9-20); CALCIUM 7.9 mg/dl (8.6-10.4); GFR NON-AFRICAN AMERICAN > 60
[2018-04-13 20:53] LABS: AST/SGOT 326 U/L (17-59)
[2018-04-13 20:56] LABS: EOSINOPHIL 1 % (0-4); LYMPHOCYTE 6 % (20-40); MONOCYTE 2 % (0-10); NEUTROPHIL 91 % (50-75); PLATELET ESTIMATE NORMAL (NORMAL); TOTAL CELLS COUNTED 100
[2018-04-13] MEDS: Propofol 10 mg/ml 1,000 MG/100 ML VIAL IV PRN (23:05)
[2018-04-14] MEDS ORDERED: Magnesium Sulfate 1 gm in D5W 1 GM/100 ML BAG IVPB ONE ×2 (00:46→01:15)
[2018-04-14] MEDS: Midazolam 50 mg/10 ml 100 MG in Dextrose 5% In Water 80 ML IV SCH ×2 (02:04→12:36)
[2018-04-14] MEDS: Vancomycin 1 gm/NS 200 ml 1 GM/200 ML BAG IVPB SCH ×2 (02:59→16:43)
[2018-04-14 04:01] LABS: BASO % 0.3 % (0.0-2.0); EOS % 0.1 % (0.0-4.0); HEMOGLOBIN 16.6 g/dL (12.0-18.0); LYMPH # 0.7 K/uL (1.0-4.3); LYMPH % 4.4 % (20.0-40.0); MEAN CELL VOLUME 92.4 fL (80.0-94.0); MEAN CORPUSCULAR HEMOGLOBIN 31.1 pg (27.0-31.0); MEAN CORPUSCULAR HGB CONC 33.6 g/dL (33.0-37.0); MEAN PLATELET VOLUME 7.7 fL (7.2-11.7); MONO # 0.6 K/uL (0.0-0.8); MONO % 3.8 % (0.0-10.0); NEUT # 15.4 K/uL (1.8-7.0); NEUT % 91.4 % (50.0-75.0); NRBC % 0.1 % (0.0-2.0); PLATELET COUNT 184 K/uL (130-400); RBC 5.36 Mil/uL (4.40-5.90); RED CELL DISTRIBUTION WIDTH 12.6 % (11.5-14.5); WHITE BLOOD COUNT 16.9 K/uL (4.8-10.8)
[2018-04-14 04:06] LABS: INR 1.1; PROTHROMBIN TIME 12.3 SECONDS (9.7-12.2)
[2018-04-14 04:11] LABS: ALB/GLOB RATIO 1.6 (1.0-2.1); ALBUMIN 4.2 g/dL (3.5-5.0)
--- NOTE | 2018-04-14 04:32 | CARDCATH ---
PROCEDURE DATE: 04/13/2018 PROCEDURES: 1. Left heart catheterization. 2. Coronary angiogram. CLINICAL INDICATIONS: 1. Cardiac arrest. 2. Hypotension. 3. Cardiogenic shock. 4. Respiratory failure, on mechanical ventilation. REFERRING PHYSICIAN: Maggie Aguilar DO PERFORMING PHYSICIAN: Ezio Brady MD BRIEF CLINICAL HISTORY: Roque Rivera is a 43-year-old gentleman, found unresponsive in the car. The patient was cyanotic and frothing. His friend called 911. By the time emergency ambulance came, the patient was hypotensive, not breathing. CPR was initiated. The patient received two doses of epi achieved. The patient was intubated in the field. He was subsequently brought to [facility] emergency room. The patient was unresponsive to painful commands. Having myoclonic jerks. However, the EKG has shown ST-elevations in aVR with depressions in all other leads. The patient was hypotensive, started on Levophed. Code heart was activated. The patient was emergently taken to cardiac cardiac catheterization technologist. There were no family or relatives of the patient. Administrative concern with two attendings was taken. DESCRIPTION OF THE PROCEDURE: The patient was prepped and draped in the usual sterile fashion. Lidocaine 2% was given. 6-British arterial access and 7-British venous access taken in the right groin. A JR4 6-British diagnostic catheter engaged into left main coronary artery. Contrast injected and left coronary angiogram was done. JR4 6-British diagnostic catheter inserted into left ventricle across the aortic valve. LV end-diastolic pressure was measured. Contrast was injected and LV angiogram was done. The catheter was pulled back across the aortic valve. Gradient across the aortic valve was measured. Then, the same catheter engaged into the right coronary artery. Contrast was injected and right coronary angiogram was done. Postprocedure, Perclose suture deployed in the right common femoral artery with excellent hemostasis. Subsequently, the patient was taken to ICU for further monitoring. Radiological supervision and radiological interpretation of the coronary imaging was done. FINDINGS: 1. Left main coronary artery is patent. 2. LAD and diagonal branches are patent. 3. Left circumflex and obtuse marginal branches are patent. 4. Right coronary artery is dominant and patent. 5. LV ejection fraction is approximately 65%. No wall motion abnormalities noted. EDP was 8. No gradient across the aortic valve. IMPRESSION: 1. Status post cardiac arrest. 2. Normal coronaries. 3. Normal left ventricular systolic function. PLAN: The patient's EKG is currently normalized. However, the ST-elevation is most likely secondary to coronary vasospasm. The patient is still unresponsive. The patient will be transferred to intensive care unit for hypothermia protocol. Recommend drug screen for further management. Deep venous thrombosis and gastrointestinal prophylaxis. Ezio Brady MD
[2018-04-14 04:36] LABS: ALT/SGPT 322 U/L (21-72); AST/SGOT 235 U/L (17-59); BLOOD UREA NITROGEN 18 mg/dL (9-20); CALCIUM 7.7 mg/dl (8.6-10.4); GFR NON-AFRICAN AMERICAN > 60
[2018-04-14] MEDS: Piperacillin/Tazobact 3.375 GM in Sodium Chloride 100 ML IVPB SCH ×3 (05:31→21:25)
[2018-04-14 06:02] LABS: ABG ALLEN TEST POS; ARTERIAL BLOOD GAS HCO3 19.1 mmol/L (21-28); ARTERIAL BLOOD GAS O2 SAT 100.2 % (95-98); ARTERIAL BLOOD GAS PCO2 33 mm/Hg (35-45); ARTERIAL BLOOD GAS PH 7.33 (7.35-7.45); ARTERIAL BLOOD GAS PO2 152 mm/Hg (80-100); ARTERIAL BLOOD GAS TCO2 18.4 mmol/L (22-28)
[2018-04-14 06:06] LABS: LYMPHOCYTE 5 % (20-40); MONOCYTE 8 % (0-10); NEUTROPHIL 87 % (50-75); PLATELET ESTIMATE NORMAL (NORMAL); TOTAL CELLS COUNTED 100
[2018-04-14 06:07] LABS: ANISOCYTOSIS SLIGHT
[2018-04-14] MEDS: Sodium Chloride 0.9% 1,000 ML IV SCH ×2 (06:20→11:00)
[2018-04-14] MEDS ORDERED: Sodium Chloride 0.9% 500 ML IV ONE (06:56)
[2018-04-14] MEDS ORDERED: Sodium Chloride 0.9% 1,000 ML IV SCH (06:57)
--- NOTE | 2018-04-14 07:15 | CP.CCUPN ---
CCU Subjective - Physician Review Subjective (Free Text): Critical care progress note for Dr. Sheriff Patient seen and examined at bedside. No acute events overnight. In AM patient was producing minimal urine. Patient remains intubated and on hypothermic protocol. Unable to obtain ROS due to intubation. CCU Objective - Vital Signs / Intake & Output Vital Signs (Last 4 hours): Vital Signs Temp Pulse Resp BP Pulse Ox 04/14/18 06:31 83 18 118/79 100 04/14/18 06:30 90 16 100 04/14/18 06:01 74 18 108/77 04/14/18 06:00 75 18 100 04/14/18 05:31 80 18 118/79 100 04/14/18 05:30 80 18 100 04/14/18 05:22 85 19 122/76 100 04/14/18 05:01 81 18 125/77 100 04/14/18 05:00 92.9 F L 80 18 125/77 100 04/14/18 04:31 87 18 113/73 100 04/14/18 04:30 87 17 100 04/14/18 04:01 77 18 122/72 100 04/14/18 04:00 91.7 F L 77 18 122/72 04/14/18 03:31 78 18 116/69 100 Intake and Output (Last 8hrs): Intake & Output 04/13/18 04/14/18 04/14/18 22:59 06:59 14:59 Intake Total 1364.3 1553.5 Output Total 3100 1050 Balance -1735.7 503.5 Intake: IV 100 80 Intake, IV Amount 1264.3 1473.5 Left Antecubital 1050 1300 R venous sheath 45 R venous sheath proximal 137.3 104 port Right AC Y port 38.5 Right Antecubital 32 31 Output: Urine 3100 1050 Urethral (Campuzano) 3100 1050 - Physical Exam Physical Exam Limitations: Positive for: Other (intubated) Head: Positive for: Atraumatic, Normocephalic Mouth: Positive for: Moist Mucous Membranes Respiratory/Chest: Positive for: Other (on ventilator). Negative for: Respiratory Distress, Accessory Muscle Use, Wheezes, Rhonchi Cardiovascular: Positive for: Normal S1, S2 Abdomen: Negative for: Tenderness, Distention Upper Extremity: Positive for: Normal Inspection. Negative for: Edema Lower Extremity: Positive for: Normal Inspection. Negative for: Edema Skin: Positive for: Warm, Dry, Rashes Psychiatric: Positive for: Other (intubated) - Medications Active Medications: Active Medications Generic Name Dose Route Start Last Admin Trade Name Freq PRN Reason Stop Dose Admin Midazolam HCl 100 mg/ Dextrose 100 mls @ 2 mls/hr 04/13/18 11:15 04/14/18 02:04 IV 0.02 mg/kg/hr .Q24H ROBERT 2 mls/hr Administration Protocol 0.02 MG/KG/HR Norepinephrine Bitartrate 4 mg 254 mls @ 15.24 mls/hr 04/13/18 11:00 04/13/18 19:00 / Sodium Chloride IV 0 mcg/min .[id number] PRN 0 mls/hr TITRATE PER MD ORDER Titration Protocol 4 MCG/MIN Cisatracurium Besylate 100 mg/ 250 mls @ 41.03 mls/hr 04/13/18 14:00 04/13/18 22:28 Dextrose IV 1 mcg/kg/min .Q6H6M PRN 13.68 mls/hr Seizure activity Titration Protocol 3 MCG/KG/MIN Piperacillin Sod/Tazobactam 100 mls @ 200 mls/hr 04/13/18 14:15 04/14/18 05:31 Sod 3.375 gm/ Sodium Chloride IVPB 200 mls/hr Q8H ROBERT Administration Protocol Levetiracetam 1,500 mg/ 115 mls @ 420 mls/hr 04/13/18 14:30 04/14/18 02:02 Dextrose IVPB 420 mls/hr Q12H ROBERT Administration Vancomycin/Sodium Chloride 1 gm in 200 mls @ 67 mls/hr 04/13/18 16:00 04/14/18 02:59 Vancomycin 1 Gm/Ns 200 Ml IVPB 04/18/18 16:01 67 mls/hr Q12H ROBERT Administration Protocol Propofol 1,000 mg in 100 mls @ 2.735 mls/hr 04/13/18 22:57 04/13/18 23:05 Diprivan IV 10 mcg/kg/min .Q24H PRN 5.47 mls/hr TITRATE PER MD ORDER Administration Protocol 5 MCG/KG/MIN Sodium Chloride 500 mls @ 1,000 mls/hr 04/14/18 06:56 Sodium Chloride 0.9% IV 04/14/18 07:25 .Q30M ONE Sodium Chloride 1,000 mls @ 150 mls/hr 04/14/18 06:57 Sodium Chloride 0.9% IV .Q6H40M [facility] Insulin Human Regular 6 unit 04/14/18 07:02 Novolin R SC 04/14/18 07:03 STAT ONE Pantoprazole Sodium 40 mg 04/14/18 10:00 Protonix Inj IVP DAILY ROBERT - Patient Studies Lab Studies: Lab Studies 04/14/18 04/14/18 04/14/18 Range/Units 05:17 03:50 03:50 WBC (4.8-10.8) K/uL RBC (4.40-5.90) Mil/uL Hgb (12.0-18.0) g/dL Hct (35.0-51.0) % MCV (80.0-94.0) fL MCH (27.0-31.0) pg MCHC (33.0-37.0) g/dL RDW (11.5-14.5) % Plt Count (130-400) K/uL MPV (7.2-11.7) fL Neut % (Auto) (50.0-75.0) % Lymph % (Auto) (20.0-40.0) % [place] % (Auto) (0.0-10.0) % Eos % (Auto) (0.0-4.0) % Baso % (Auto) (0.0-2.0) % Neut # (Auto) (1.8-7.0) K/uL Lymph # (Auto) (1.0-4.3) K/uL [place] # (Auto) (0.0-0.8) K/uL Eos # (Auto) (0.0-0.7) K/uL Baso # (Auto) (0.0-0.2) K/uL Neutrophils % (Manual) (50-75) % Lymphocytes % (Manual) (20-40) % Reactive Lymphs % (0-0) % Monocytes % (Manual) (0-10) % Eosinophils % (Manual) (0-4) % Platelet Estimate (NORMAL) RBC Morphology Anisocytosis (manual) PT 12.3 H (9.7-12.2) SECONDS INR 1.1 APTT 23 D (21-34) SECONDS D-Dimer, Quantitative (0-243) ng/mlDDU Puncture Site R rad pCO2 33 L (35-45) mm/Hg pO2 152 H (80-100) mm/Hg HCO3 19.1 L (21-28) mmol/L ABG pH 7.33 L (7.35-7.45) ABG Total CO2 18.4 L (22-28) mmol/L ABG O2 Saturation 100.2 H (95-98) % ABG Base Excess -7.5 L (-2.0-3.0) mmol/L Jose Test Pos ABG Potassium 4.2 (3.6-5.2) mmol/L A-a O2 Difference 235.0 mm/Hg Respiratory Index 1.5 Glucose 263 H (75-110) mg/dl Lactate 3.2 H (0.7-2.1) mmol/L Vent Mode Prvc Mechanical Rate 18 FiO2 60.0 % Tidal Volume 500 PEEP 5 Sodium 133.0 131 L (132-148) mmol/L Potassium 5.7 H (3.6-5.2) mmol/L Chloride 105.0 102 (98-107) mmol/L Carbon Dioxide 17 L (22-30) mmol/L Anion Gap 19 (10-20) BUN 18 (9-20) mg/dL Creatinine 0.9 (0.8-1.5) mg/dL Est GFR ( Amer) > 60 Est GFR (Non-Af Amer) > 60 POC Glucose (mg/dL) (65-110) mg/dL Random Glucose 321 H (75-110) mg/dL Hemoglobin A1c (4.2-6.5) % Calcium 7.7 L (8.6-10.4) mg/dl Phosphorus 2.1 L (2.5-4.5) mg/dL Magnesium 2.6 H (1.6-2.3) mg/dL Total Bilirubin 1.0 (0.2-1.3) mg/dL AST 235 H D (17-59) U/L ALT 322 H D (21-72) U/L Alkaline Phosphatase 70 (38-126) U/L Lactate Dehydrogenase (313-618) U/L Total Creatine Kinase (55-170) U/L CK-MB (Mass) (0.0-3.38) ng/mL Troponin I (0.00-0.120) ng/mL Total Protein 6.8 (6.3-8.3) g/dL Albumin 4.2 (3.5-5.0) g/dL Globulin 2.6 (2.2-3.9) gm/dL Albumin/Globulin Ratio 1.6 (1.0-2.1) Procalcitonin (0.19-0.49) NG/ML Arterial Blood Potassium 4.2 (3.6-5.2) mmol/L Urine Color (YELLOW) Urine Clarity (Clear) Urine pH (5.0-8.0) Ur Specific [place] (1.003-1.030) Urine Protein (NEGATIVE) mg/dL Urine Glucose (UA) (Normal) mg/dL Urine Ketones (NEGATIVE) mg/dL Urine Blood (NEGATIVE) Urine Nitrate (NEGATIVE) Urine Bilirubin (NEGATIVE) Urine Urobilinogen (0.2-1.0) mg/dL Ur Leukocyte Esterase (Negative) Ezra/uL Urine WBC (Auto) (0-5) /hpf Urine RBC (Auto) (0-3) /hpf Ur Squamous Epith Cells (0-5) /hpf Urine Bacteria (<OCC) Urine Opiates Screen (NEGATIVE) Urine Methadone Screen (NEGATIVE) Ur Barbiturates Screen (NEGATIVE) Ur Phencyclidine Scrn (NEGATIVE) Ur Amphetamines Screen (NEGATIVE) U Benzodiazepines Scrn (NEGATIVE) U Oth Cocaine Metabols (NEGATIVE) U Cannabinoids Screen (NEGATIVE) Blood Type Antibody Screen 04/14/18 04/13/18 04/13/18 Range/Units 03:50 20:02 20:02 WBC 16.9 H 24.6 H (4.8-10.8) K/uL RBC 5.36 5.76 (4.40-5.90) Mil/uL Hgb 16.6 17.9 (12.0-18.0) g/dL Hct 49.5 53.9 H (35.0-51.0) % MCV 92.4 93.5 D (80.0-94.0) fL MCH 31.1 H 31.0 (27.0-31.0) pg MCHC 33.6 33.2 (33.0-37.0) g/dL RDW 12.6 13.0 (11.5-14.5) % Plt Count 184 271 (130-400) K/uL MPV 7.7 8.0 (7.2-11.7) fL Neut % (Auto) 91.4 H 89.3 H (50.0-75.0) % Lymph % (Auto) 4.4 L 4.5 L (20.0-40.0) % [place] % (Auto) 3.8 5.7 (0.0-10.0) % Eos % (Auto) 0.1 0.4 (0.0-4.0) % Baso % (Auto) 0.3 0.1 (0.0-2.0) % Neut # (Auto) 15.4 H 22.0 H (1.8-7.0) K/uL Lymph # (Auto) 0.7 L 1.1 (1.0-4.3) K/uL [place] # (Auto) 0.6 1.4 H (0.0-0.8) K/uL Eos # (Auto) 0.0 0.1 (0.0-0.7) K/uL Baso # (Auto) 0.0 0.0 (0.0-0.2) K/uL Neutrophils % (Manual) 87 H 91 H (50-75) % Lymphocytes % (Manual) 5 L 6 L (20-40) % Reactive Lymphs % (0-0) % Monocytes % (Manual) 8 2 (0-10) % Eosinophils % (Manual) 1 (0-4) % Platelet Estimate Normal Normal (NORMAL) RBC Morphology Anisocytosis (manual) Slight PT (9.7-12.2) SECONDS INR APTT (21-34) SECONDS D-Dimer, Quantitative (0-243) ng/mlDDU Puncture Site pCO2 (35-45) mm/Hg pO2 (80-100) mm/Hg HCO3 (21-28) mmol/L ABG pH (7.35-7.45) ABG Total CO2 (22-28) mmol/L ABG O2 Saturation (95-98) % ABG Base Excess (-2.0-3.0) mmol/L Jose Test ABG Potassium (3.6-5.2) mmol/L A-a O2 Difference mm/Hg Respiratory Index Glucose (75-110) mg/dl Lactate (0.7-2.1) mmol/L Vent Mode Mechanical Rate FiO2 % Tidal Volume PEEP Sodium 135 (132-148) mmol/L Potassium 3.5 L (3.6-5.2) mmol/L Chloride 100 (98-107) mmol/L Carbon Dioxide 17 L (22-30) mmol/L Anion Gap 21 H (10-20) BUN 18 (9-20) mg/dL Creatinine 0.9 (0.8-1.5) mg/dL Est GFR ( Amer) > 60 Est GFR (Non-Af Amer) > 60 POC Glucose (mg/dL) (65-110) mg/dL Random Glucose 269 H D (75-110) mg/dL Hemoglobin A1c (4.2-6.5) % Calcium 7.9 L (8.6-10.4) mg/dl Phosphorus 3.7 (2.5-4.5) mg/dL Magnesium 1.6 (1.6-2.3) mg/dL Total Bilirubin 0.7 (0.2-1.3) mg/dL AST 326 H (17-59) U/L ALT 410 H (21-72) U/L Alkaline Phosphatase 99 (38-126) U/L Lactate Dehydrogenase (313-618) U/L Total Creatine Kinase 765 H (55-170) U/L CK-MB (Mass) 30.0 H (0.0-3.38) ng/mL Troponin I 6.2100 H* (0.00-0.120) ng/mL Total Protein 7.8 (6.3-8.3) g/dL Albumin 4.9 (3.5-5.0) g/dL Globulin 2.9 (2.2-3.9) gm/dL Albumin/Globulin Ratio 1.7 (1.0-2.1) Procalcitonin (0.19-0.49) NG/ML Arterial Blood Potassium (3.6-5.2) mmol/L Urine Color (YELLOW) Urine Clarity (Clear) Urine pH (5.0-8.0) Ur Specific [place] (1.003-1.030) Urine Protein (NEGATIVE) mg/dL Urine Glucose (UA) (Normal) mg/dL Urine Ketones (NEGATIVE) mg/dL Urine Blood (NEGATIVE) Urine Nitrate (NEGATIVE) Urine Bilirubin (NEGATIVE) Urine Urobilinogen (0.2-1.0) mg/dL Ur Leukocyte Esterase (Negative) Ezra/uL Urine WBC (Auto) (0-5) /hpf Urine RBC (Auto) (0-3) /hpf Ur Squamous Epith Cells (0-5) /hpf Urine Bacteria (<OCC) Urine Opiates Screen (NEGATIVE) Urine Methadone Screen (NEGATIVE) Ur Barbiturates Screen (NEGATIVE) Ur Phencyclidine Scrn (NEGATIVE) Ur Amphetamines Screen (NEGATIVE) U Benzodiazepines Scrn (NEGATIVE) U Oth Cocaine Metabols (NEGATIVE) U Cannabinoids Screen (NEGATIVE) Blood Type Antibody Screen 04/13/18 04/13/18 04/13/18 Range/Units 17:50 16:35 14:30 WBC (4.8-10.8) K/uL RBC (4.40-5.90) Mil/uL Hgb (12.0-18.0) g/dL Hct (35.0-51.0) % MCV (80.0-94.0) fL MCH (27.0-31.0) pg MCHC (33.0-37.0) g/dL RDW (11.5-14.5) % Plt Count (130-400) K/uL MPV (7.2-11.7) fL Neut % (Auto) (50.0-75.0) % Lymph % (Auto) (20.0-40.0) % [place] % (Auto) (0.0-10.0) % Eos % (Auto) (0.0-4.0) % Baso % (Auto) (0.0-2.0) % Neut # (Auto) (1.8-7.0) K/uL Lymph # (Auto) (1.0-4.3) K/uL [place] # (Auto) (0.0-0.8) K/uL Eos # (Auto) (0.0-0.7) K/uL Baso # (Auto) (0.0-0.2) K/uL Neutrophils % (Manual) (50-75) % Lymphocytes % (Manual) (20-40) % Reactive Lymphs % (0-0) % Monocytes % (Manual) (0-10) % Eosinophils % (Manual) (0-4) % Platelet Estimate (NORMAL) RBC Morphology Anisocytosis (manual) PT (9.7-12.2) SECONDS INR APTT (21-34) SECONDS D-Dimer, Quantitative (0-243) ng/mlDDU Puncture Site Rba pCO2 39 (35-45) mm/Hg pO2 119 H (80-100) mm/Hg HCO3 18.8 L (21-28) mmol/L ABG pH 7.28 L (7.35-7.45) ABG Total CO2 19.5 L (22-28) mmol/L ABG O2 Saturation 99.7 H (95-98) % ABG Base Excess -7.9 L (-2.0-3.0) mmol/L Jose Test Pos ABG Potassium 5.0 (3.6-5.2) mmol/L A-a O2 Difference 260.0 mm/Hg Respiratory Index 2.2 Glucose 230 H (75-110) mg/dl Lactate 3.3 H (0.7-2.1) mmol/L Vent Mode Prvc Mechanical Rate 18 FiO2 60.0 % Tidal Volume 500 PEEP 5 Sodium 135.0 (132-148) mmol/L Potassium (3.6-5.2) mmol/L Chloride 106.0 (98-107) mmol/L Carbon Dioxide (22-30) mmol/L Anion Gap (10-20) BUN (9-20) mg/dL Creatinine (0.8-1.5) mg/dL Est GFR ( Amer) Est GFR (Non-Af Amer) POC Glucose (mg/dL) 194 H (65-110) mg/dL Random Glucose (75-110) mg/dL Hemoglobin A1c (4.2-6.5) % Calcium (8.6-10.4) mg/dl Phosphorus (2.5-4.5) mg/dL Magnesium (1.6-2.3) mg/dL Total Bilirubin (0.2-1.3) mg/dL AST (17-59) U/L ALT (21-72) U/L Alkaline Phosphatase (38-126) U/L Lactate Dehydrogenase (313-618) U/L Total Creatine Kinase (55-170) U/L CK-MB (Mass) (0.0-3.38) ng/mL Troponin I (0.00-0.120) ng/mL Total Protein (6.3-8.3) g/dL Albumin (3.5-5.0) g/dL Globulin (2.2-3.9) gm/dL Albumin/Globulin Ratio (1.0-2.1) Procalcitonin 0.38 (0.19-0.49) NG/ML Arterial Blood Potassium 5.0 (3.6-5.2) mmol/L Urine Color (YELLOW) Urine Clarity (Clear) Urine pH (5.0-8.0) Ur Specific [place] (1.003-1.030) Urine Protein (NEGATIVE) mg/dL Urine Glucose (UA) (Normal) mg/dL Urine Ketones (NEGATIVE) mg/dL Urine Blood (NEGATIVE) Urine Nitrate (NEGATIVE) Urine Bilirubin (NEGATIVE) Urine Urobilinogen (0.2-1.0) mg/dL Ur Leukocyte Esterase (Negative) Ezra/uL Urine WBC (Auto) (0-5) /hpf Urine RBC (Auto) (0-3) /hpf Ur Squamous Epith Cells (0-5) /hpf Urine Bacteria (<OCC) Urine Opiates Screen (NEGATIVE) Urine Methadone Screen (NEGATIVE) Ur Barbiturates Screen (NEGATIVE) Ur Phencyclidine Scrn (NEGATIVE) Ur Amphetamines Screen (NEGATIVE) U Benzodiazepines Scrn (NEGATIVE) U Oth Cocaine Metabols (NEGATIVE) U Cannabinoids Screen (NEGATIVE) Blood Type Antibody Screen 04/13/18 04/13/18 04/13/18 Range/Units 13:29 13:29 13:19 WBC (4.8-10.8) K/uL RBC (4.40-5.90) Mil/uL Hgb (12.0-18.0) g/dL Hct (35.0-51.0) % MCV (80.0-94.0) fL MCH (27.0-31.0) pg MCHC (33.0-37.0) g/dL RDW (11.5-14.5) % Plt Count (130-400) K/uL MPV (7.2-11.7) fL Neut % (Auto) (50.0-75.0) % Lymph % (Auto) (20.0-40.0) % [place] % (Auto) (0.0-10.0) % Eos % (Auto) (0.0-4.0) % Baso % (Auto) (0.0-2.0) % Neut # (Auto) (1.8-7.0) K/uL Lymph # (Auto) (1.0-4.3) K/uL [place] # (Auto) (0.0-0.8) K/uL Eos # (Auto) (0.0-0.7) K/uL Baso # (Auto) (0.0-0.2) K/uL Neutrophils % (Manual) (50-75) % Lymphocytes % (Manual) (20-40) % Reactive Lymphs % (0-0) % Monocytes % (Manual) (0-10) % Eosinophils % (Manual) (0-4) % Platelet Estimate (NORMAL) RBC Morphology Anisocytosis (manual) PT (9.7-12.2) SECONDS INR APTT (21-34) SECONDS D-Dimer, Quantitative 2708 H (0-243) ng/mlDDU Puncture Site pCO2 (35-45) mm/Hg pO2 (80-100) mm/Hg HCO3 (21-28) mmol/L ABG pH (7.35-7.45) ABG Total CO2 (22-28) mmol/L ABG O2 Saturation (95-98) % ABG Base Excess (-2.0-3.0) mmol/L Jose Test ABG Potassium (3.6-5.2) mmol/L A-a O2 Difference mm/Hg Respiratory Index Glucose (75-110) mg/dl Lactate (0.7-2.1) mmol/L Vent Mode Mechanical Rate FiO2 % Tidal Volume PEEP Sodium 137 (132-148) mmol/L Potassium 4.6 (3.6-5.2) mmol/L Chloride 102 (98-107) mmol/L Carbon Dioxide 25 (22-30) mmol/L Anion Gap 14 (10-20) BUN 19 (9-20) mg/dL Creatinine 1.2 (0.8-1.5) mg/dL Est GFR ( Amer) > 60 Est GFR (Non-Af Amer) > 60 POC Glucose (mg/dL) (65-110) mg/dL Random Glucose 178 H D (75-110) mg/dL Hemoglobin A1c (4.2-6.5) % Calcium 8.1 L (8.6-10.4) mg/dl Phosphorus (2.5-4.5) mg/dL Magnesium (1.6-2.3) mg/dL Total Bilirubin 0.7 (0.2-1.3) mg/dL AST 281 H D (17-59) U/L ALT 359 H D (21-72) U/L Alkaline Phosphatase 88 (38-126) U/L Lactate Dehydrogenase (313-618) U/L Total Creatine Kinase (55-170) U/L CK-MB (Mass) (0.0-3.38) ng/mL Troponin I (0.00-0.120) ng/mL Total Protein 6.7 (6.3-8.3) g/dL Albumin 4.2 (3.5-5.0) g/dL Globulin 2.5 (2.2-3.9) gm/dL Albumin/Globulin Ratio 1.6 (1.0-2.1) Procalcitonin (0.19-0.49) NG/ML Arterial Blood Potassium (3.6-5.2) mmol/L Urine Color Yellow (YELLOW) Urine Clarity Hazy (Clear) Urine pH 7.0 (5.0-8.0) Ur Specific [place] 1.029 (1.003-1.030) Urine Protein 3+ H (NEGATIVE) mg/dL Urine Glucose (UA) 1+ H (Normal) mg/dL Urine Ketones Negative (NEGATIVE) mg/dL Urine Blood 1+ H (NEGATIVE) Urine Nitrate Negative (NEGATIVE) Urine Bilirubin Negative (NEGATIVE) Urine Urobilinogen Normal (0.2-1.0) mg/dL Ur Leukocyte Esterase Neg (Negative) Ezra/uL Urine WBC (Auto) 3 (0-5) /hpf Urine RBC (Auto) 10 H (0-3) /hpf Ur Squamous Epith Cells < 1 (0-5) /hpf Urine Bacteria Rare (<OCC) Urine Opiates Screen (NEGATIVE) Urine Methadone Screen (NEGATIVE) Ur Barbiturates Screen (NEGATIVE) Ur Phencyclidine Scrn (NEGATIVE) Ur Amphetamines Screen (NEGATIVE) U Benzodiazepines Scrn (NEGATIVE) U Oth Cocaine Metabols (NEGATIVE) U Cannabinoids Screen (NEGATIVE) Blood Type Antibody Screen 04/13/18 04/13/18 04/13/18 Range/Units 13:19 10:53 10:53 WBC (4.8-10.8) K/uL RBC (4.40-5.90) Mil/uL Hgb (12.0-18.0) g/dL Hct (35.0-51.0) % MCV (80.0-94.0) fL MCH (27.0-31.0) pg MCHC (33.0-37.0) g/dL RDW (11.5-14.5) % Plt Count (130-400) K/uL MPV (7.2-11.7) fL Neut % (Auto) (50.0-75.0) % Lymph % (Auto) (20.0-40.0) % [place] % (Auto) (0.0-10.0) % Eos % (Auto) (0.0-4.0) % Baso % (Auto) (0.0-2.0) % Neut # (Auto) (1.8-7.0) K/uL Lymph # (Auto) (1.0-4.3) K/uL [place] # (Auto) (0.0-0.8) K/uL Eos # (Auto) (0.0-0.7) K/uL Baso # (Auto) (0.0-0.2) K/uL Neutrophils % (Manual) (50-75) % Lymphocytes % (Manual) (20-40) % Reactive Lymphs % (0-0) % Monocytes % (Manual) (0-10) % Eosinophils % (Manual) (0-4) % Platelet Estimate (NORMAL) RBC Morphology Anisocytosis (manual) PT (9.7-12.2) SECONDS INR APTT (21-34) SECONDS D-Dimer, Quantitative (0-243) ng/mlDDU Puncture Site pCO2 (35-45) mm/Hg pO2 (80-100) mm/Hg HCO3 (21-28) mmol/L ABG pH (7.35-7.45) ABG Total CO2 (22-28) mmol/L ABG O2 Saturation (95-98) % ABG Base Excess (-2.0-3.0) mmol/L Jose Test ABG Potassium (3.6-5.2) mmol/L A-a O2 Difference mm/Hg Respiratory Index Glucose (75-110) mg/dl Lactate (0.7-2.1) mmol/L Vent Mode Mechanical Rate FiO2 % Tidal Volume PEEP Sodium (132-148) mmol/L Potassium (3.6-5.2) mmol/L Chloride (98-107) mmol/L Carbon Dioxide (22-30) mmol/L Anion Gap (10-20) BUN (9-20) mg/dL Creatinine (0.8-1.5) mg/dL Est GFR ( Amer) Est GFR (Non-Af Amer) POC Glucose (mg/dL) (65-110) mg/dL Random Glucose (75-110) mg/dL Hemoglobin A1c 5.6 (4.2-6.5) % Calcium (8.6-10.4) mg/dl Phosphorus (2.5-4.5) mg/dL Magnesium (1.6-2.3) mg/dL Total Bilirubin (0.2-1.3) mg/dL AST (17-59) U/L ALT (21-72) U/L Alkaline Phosphatase (38-126) U/L Lactate Dehydrogenase (313-618) U/L Total Creatine Kinase (55-170) U/L CK-MB (Mass) (0.0-3.38) ng/mL Troponin I (0.00-0.120) ng/mL Total Protein (6.3-8.3) g/dL Albumin (3.5-5.0) g/dL Globulin (2.2-3.9) gm/dL Albumin/Globulin Ratio (1.0-2.1) Procalcitonin (0.19-0.49) NG/ML Arterial Blood Potassium (3.6-5.2) mmol/L Urine Color (YELLOW) Urine Clarity (Clear) Urine pH (5.0-8.0) Ur Specific [place] (1.003-1.030) Urine Protein (NEGATIVE) mg/dL Urine Glucose (UA) (Normal) mg/dL Urine Ketones (NEGATIVE) mg/dL Urine Blood (NEGATIVE) Urine Nitrate (NEGATIVE) Urine Bilirubin (NEGATIVE) Urine Urobilinogen (0.2-1.0) mg/dL Ur Leukocyte Esterase (Negative) Ezra/uL Urine WBC (Auto) (0-5) /hpf Urine RBC (Auto) (0-3) /hpf Ur Squamous Epith Cells (0-5) /hpf Urine Bacteria (<OCC) Urine Opiates Screen Positive H (NEGATIVE) Urine Methadone Screen Negative (NEGATIVE) Ur Barbiturates Screen Negative (NEGATIVE) Ur Phencyclidine Scrn Negative (NEGATIVE) Ur Amphetamines Screen Negative (NEGATIVE) U Benzodiazepines Scrn Positive (NEGATIVE) U Oth Cocaine Metabols Negative (NEGATIVE) U Cannabinoids Screen Negative (NEGATIVE) Blood Type O POSITIVE Antibody Screen Negative 04/13/18 04/13/18 04/13/18 Range/Units 10:46 10:46 10:46 WBC 20.0 H (4.8-10.8) K/uL RBC 5.57 (4.40-5.90) Mil/uL Hgb 17.3 (12.0-18.0) g/dL Hct 53.3 H (35.0-51.0) % MCV 95.7 H (80.0-94.0) fL MCH 31.1 H (27.0-31.0) pg MCHC 32.5 L (33.0-37.0) g/dL RDW 12.9 (11.5-14.5) % Plt Count 241 (130-400) K/uL MPV 8.1 (7.2-11.7) fL Neut % (Auto) 26.5 L (50.0-75.0) % Lymph % (Auto) 51.8 H (20.0-40.0) % [place] % (Auto) 4.6 (0.0-10.0) % Eos % (Auto) 16.7 H (0.0-4.0) % Baso % (Auto) 0.4 (0.0-2.0) % Neut # (Auto) 5.3 (1.8-7.0) K/uL Lymph # (Auto) 10.4 H (1.0-4.3) K/uL [place] # (Auto) 0.9 H (0.0-0.8) K/uL Eos # (Auto) 3.3 H (0.0-0.7) K/uL Baso # (Auto) 0.1 (0.0-0.2) K/uL Neutrophils % (Manual) 25 L (50-75) % Lymphocytes % (Manual) 43 H (20-40) % Reactive Lymphs % 8 H (0-0) % Monocytes % (Manual) 7 (0-10) % Eosinophils % (Manual) 17 H (0-4) % Platelet Estimate Normal (NORMAL) RBC Morphology Normal Anisocytosis (manual) PT 12.8 H (9.7-12.2) SECONDS INR 1.2 APTT 34 (21-34) SECONDS D-Dimer, Quantitative (0-243) ng/mlDDU Puncture Site pCO2 (35-45) mm/Hg pO2 (80-100) mm/Hg HCO3 (21-28) mmol/L ABG pH (7.35-7.45) ABG Total CO2 (22-28) mmol/L ABG O2 Saturation (95-98) % ABG Base Excess (-2.0-3.0) mmol/L Jose Test ABG Potassium (3.6-5.2) mmol/L A-a O2 Difference mm/Hg Respiratory Index Glucose (75-110) mg/dl Lactate (0.7-2.1) mmol/L Vent Mode Mechanical Rate FiO2 % Tidal Volume PEEP Sodium 135 (132-148) mmol/L Potassium 3.3 L (3.6-5.2) mmol/L Chloride 101 (98-107) mmol/L Carbon Dioxide 18 L (22-30) mmol/L Anion Gap 20 (10-20) BUN 18 (9-20) mg/dL Creatinine 1.3 (0.8-1.5) mg/dL Est GFR ( Amer) > 60 Est GFR (Non-Af Amer) > 60 POC Glucose (mg/dL) (65-110) mg/dL Random Glucose 255 H (75-110) mg/dL Hemoglobin A1c (4.2-6.5) % Calcium 8.8 (8.6-10.4) mg/dl Phosphorus (2.5-4.5) mg/dL Magnesium (1.6-2.3) mg/dL Total Bilirubin 0.8 (0.2-1.3) mg/dL AST 150 H (17-59) U/L ALT 190 H (21-72) U/L Alkaline Phosphatase 69 (38-126) U/L Lactate Dehydrogenase 1027 H (313-618) U/L Total Creatine Kinase 154 (55-170) U/L CK-MB (Mass) (0.0-3.38) ng/mL Troponin I 0.0150 (0.00-0.120) ng/mL Total Protein 6.9 (6.3-8.3) g/dL Albumin 4.3 (3.5-5.0) g/dL Globulin 2.6 (2.2-3.9) gm/dL Albumin/Globulin Ratio 1.6 (1.0-2.1) Procalcitonin (0.19-0.49) NG/ML Arterial Blood Potassium (3.6-5.2) mmol/L Urine Color (YELLOW) Urine Clarity (Clear) Urine pH (5.0-8.0) Ur Specific [place] (1.003-1.030) Urine Protein (NEGATIVE) mg/dL Urine Glucose (UA) (Normal) mg/dL Urine Ketones (NEGATIVE) mg/dL Urine Blood (NEGATIVE) Urine Nitrate (NEGATIVE) Urine Bilirubin (NEGATIVE) Urine Urobilinogen (0.2-1.0) mg/dL Ur Leukocyte Esterase (Negative) Ezra/uL Urine WBC (Auto) (0-5) /hpf Urine RBC (Auto) (0-3) /hpf Ur Squamous Epith Cells (0-5) /hpf Urine Bacteria (<OCC) Urine Opiates Screen (NEGATIVE) Urine Methadone Screen (NEGATIVE) Ur Barbiturates Screen (NEGATIVE) Ur Phencyclidine Scrn (NEGATIVE) Ur Amphetamines Screen (NEGATIVE) U Benzodiazepines Scrn (NEGATIVE) U Oth Cocaine Metabols (NEGATIVE) U Cannabinoids Screen (NEGATIVE) Blood Type Antibody Screen Laboratory Results - last 24 hr 04/13/18 04/13/18 04/13/18 10:46 10:46 10:46 WBC 20.0 H RBC 5.57 Hgb 17.3 Hct 53.3 H MCV 95.7 H MCH 31.1 H MCHC 32.5 L RDW 12.9 Plt Count 241 MPV 8.1 Neut % (Auto) 26.5 L Lymph % (Auto) 51.8 H [place] % (Auto) 4.6 Eos % (Auto) 16.7 H Baso % (Auto) 0.4 Neut # (Auto) 5.3 Lymph # (Auto) 10.4 H [place] # (Auto) 0.9 H Eos # (Auto) 3.3 H Baso # (Auto) 0.1 Neutrophils % (Manual) 25 L Lymphocytes % (Manual) 43 H Reactive Lymphs % 8 H Monocytes % (Manual) 7 Eosinophils % (Manual) 17 H Platelet Estimate Normal RBC Morphology Normal Anisocytosis (manual) PT 12.8 H INR 1.2 APTT 34 D-Dimer, Quantitative Puncture Site pCO2 pO2 HCO3 ABG pH ABG Total CO2 ABG O2 Saturation ABG Base Excess Jose Test ABG Potassium A-a O2 Difference Respiratory Index Glucose Lactate Vent Mode Mechanical Rate FiO2 Tidal Volume PEEP Sodium 135 Potassium 3.3 L Chloride 101 Carbon Dioxide 18 L Anion Gap 20 BUN 18 Creatinine 1.3 Est GFR ( Amer) > 60 Est GFR (Non-Af Amer) > 60 POC Glucose (mg/dL) Random Glucose 255 H Hemoglobin A1c Calcium 8.8 Phosphorus Magnesium Total Bilirubin 0.8 AST 150 H ALT 190 H Alkaline Phosphatase 69 Lactate Dehydrogenase 1027 H Total Creatine Kinase 154 CK-MB (Mass) Troponin I 0.0150 Total Protein 6.9 Albumin 4.3 Globulin 2.6 Albumin/Globulin Ratio 1.6 Procalcitonin Arterial Blood Potassium Urine Color Urine Clarity Urine pH Ur Specific [place] Urine Protein Urine Glucose (UA) Urine Ketones Urine Blood Urine Nitrate Urine Bilirubin Urine Urobilinogen Ur Leukocyte Esterase Urine WBC (Auto) Urine RBC (Auto) Ur Squamous Epith Cells Urine Bacteria Urine Opiates Screen Urine Methadone Screen Ur Barbiturates Screen Ur Phencyclidine Scrn Ur Amphetamines Screen U Benzodiazepines Scrn U Oth Cocaine Metabols U Cannabinoids Screen Blood Type Antibody Screen 04/13/18 04/13/18 04/13/18 10:53 10:53 13:19 WBC RBC Hgb Hct MCV MCH MCHC RDW Plt Count MPV Neut % (Auto) Lymph % (Auto) [place] % (Auto) Eos % (Auto) Baso % (Auto) Neut # (Auto) Lymph # (Auto) [place] # (Auto) Eos # (Auto) Baso # (Auto) Neutrophils % (Manual) Lymphocytes % (Manual) Reactive Lymphs % Monocytes % (Manual) Eosinophils % (Manual) Platelet Estimate RBC Morphology Anisocytosis (manual) PT INR APTT D-Dimer, Quantitative Puncture Site pCO2 pO2 HCO3 ABG pH ABG Total CO2 ABG O2 Saturation ABG Base Excess Jose Test ABG Potassium A-a O2 Difference Respiratory Index Glucose Lactate Vent Mode Mechanical Rate FiO2 Tidal Volume PEEP Sodium Potassium Chloride Carbon Dioxide Anion Gap BUN Creatinine Est GFR ( Amer) Est GFR (Non-Af Amer) POC Glucose (mg/dL) Random Glucose Hemoglobin A1c 5.6 Calcium Phosphorus Magnesium Total Bilirubin AST ALT Alkaline Phosphatase Lactate Dehydrogenase Total Creatine Kinase CK-MB (Mass) Troponin I Total Protein Albumin Globulin Albumin/Globulin Ratio Procalcitonin Arterial Blood Potassium Urine Color Urine Clarity Urine pH Ur Specific [place] Urine Protein Urine Glucose (UA) Urine Ketones Urine Blood Urine Nitrate Urine Bilirubin Urine Urobilinogen Ur Leukocyte Esterase Urine WBC (Auto) Urine RBC (Auto) Ur Squamous Epith Cells Urine Bacteria Urine Opiates Screen Positive H Urine Methadone Screen Negative Ur Barbiturates Screen Negative Ur Phencyclidine Scrn Negative Ur Amphetamines Screen Negative U Benzodiazepines Scrn Positive U Oth Cocaine Metabols Negative U Cannabinoids Screen Negative Blood Type O POSITIVE Antibody Screen Negative 04/13/18 04/13/18 04/13/18 13:19 13:29 13:29 WBC RBC Hgb Hct MCV MCH MCHC RDW Plt Count MPV Neut % (Auto) Lymph % (Auto) [place] % (Auto) Eos % (Auto) Baso % (Auto) Neut # (Auto) Lymph # (Auto) [place] # (Auto) Eos # (Auto) Baso # (Auto) Neutrophils % (Manual) Lymphocytes % (Manual) Reactive Lymphs % Monocytes % (Manual) Eosinophils % (Manual) Platelet Estimate RBC Morphology Anisocytosis (manual) PT INR APTT D-Dimer, Quantitative 2708 H Puncture Site pCO2 pO2 HCO3 ABG pH ABG Total CO2 ABG O2 Saturation ABG Base Excess Jose Test ABG Potassium A-a O2 Difference Respiratory Index Glucose Lactate Vent Mode Mechanical Rate FiO2 Tidal Volume PEEP Sodium 137 Potassium 4.6 Chloride 102 Carbon Dioxide 25 Anion Gap 14 BUN 19 Creatinine 1.2 Est GFR ( Amer) > 60 Est GFR (Non-Af Amer) > 60 POC Glucose (mg/dL) Random Glucose 178 H D Hemoglobin A1c Calcium 8.1 L Phosphorus Magnesium Total Bilirubin 0.7 AST 281 H D ALT 359 H D Alkaline Phosphatase 88 Lactate Dehydrogenase Total Creatine Kinase CK-MB (Mass) Troponin I Total Protein 6.7 Albumin 4.2 Globulin 2.5 Albumin/Globulin Ratio 1.6 Procalcitonin Arterial Blood Potassium Urine Color Yellow Urine Clarity Hazy Urine pH 7.0 Ur Specific [place] 1.029 Urine Protein 3+ H Urine Glucose (UA) 1+ H Urine Ketones Negative Urine Blood 1+ H Urine Nitrate Negative Urine Bilirubin Negative Urine Urobilinogen Normal Ur Leukocyte Esterase Neg Urine WBC (Auto) 3 Urine RBC (Auto) 10 H Ur Squamous Epith Cells < 1 Urine Bacteria Rare Urine Opiates Screen Urine Methadone Screen Ur Barbiturates Screen Ur Phencyclidine Scrn Ur Amphetamines Screen U Benzodiazepines Scrn U Oth Cocaine Metabols U Cannabinoids Screen Blood Type Antibody Screen 04/13/18 04/13/18 04/13/18 14:30 16:35 17:50 WBC RBC Hgb Hct MCV MCH MCHC RDW Plt Count MPV Neut % (Auto) Lymph % (Auto) [place] % (Auto) Eos % (Auto) Baso % (Auto) Neut # (Auto) Lymph # (Auto) [place] # (Auto) Eos # (Auto) Baso # (Auto) Neutrophils % (Manual) Lymphocytes % (Manual) Reactive Lymphs % Monocytes % (Manual) Eosinophils % (Manual) Platelet Estimate RBC Morphology Anisocytosis (manual) PT INR APTT D-Dimer, Quantitative Puncture Site Rba pCO2 39 pO2 119 H HCO3 18.8 L ABG pH 7.28 L ABG Total CO2 19.5 L ABG O2 Saturation 99.7 H ABG Base Excess -7.9 L Jose Test Pos ABG Potassium 5.0 A-a O2 Difference 260.0 Respiratory Index 2.2 Glucose 230 H Lactate 3.3 H Vent Mode Prvc Mechanical Rate 18 FiO2 60.0 Tidal Volume 500 PEEP 5 Sodium 135.0 Potassium Chloride 106.0 Carbon Dioxide Anion Gap BUN Creatinine Est GFR ( Amer) Est GFR (Non-Af Amer) POC Glucose (mg/dL) 194 H Random Glucose Hemoglobin A1c Calcium Phosphorus Magnesium Total Bilirubin AST ALT Alkaline Phosphatase Lactate Dehydrogenase Total Creatine Kinase CK-MB (Mass) Troponin I Total Protein Albumin Globulin Albumin/Globulin Ratio Procalcitonin 0.38 Arterial Blood Potassium 5.0 Urine Color Urine Clarity Urine pH Ur Specific [place] Urine Protein Urine Glucose (UA) Urine Ketones Urine Blood Urine Nitrate Urine Bilirubin Urine Urobilinogen Ur Leukocyte Esterase Urine WBC (Auto) Urine RBC (Auto) Ur Squamous Epith Cells Urine Bacteria Urine Opiates Screen Urine Methadone Screen Ur Barbiturates Screen Ur Phencyclidine Scrn Ur Amphetamines Screen U Benzodiazepines Scrn U Oth Cocaine Metabols U Cannabinoids Screen Blood Type Antibody Screen 04/13/18 04/13/18 04/14/18 20:02 20:02 03:50 WBC 24.6 H 16.9 H RBC 5.76 5.36 Hgb 17.9 16.6 Hct 53.9 H 49.5 MCV 93.5 D 92.4 MCH 31.0 31.1 H MCHC 33.2 33.6 RDW 13.0 12.6 Plt Count 271 184 MPV 8.0 7.7 Neut % (Auto) 89.3 H 91.4 H Lymph % (Auto) 4.5 L 4.4 L [place] % (Auto) 5.7 3.8 Eos % (Auto) 0.4 0.1 Baso % (Auto) 0.1 0.3 Neut # (Auto) 22.0 H 15.4 H Lymph # (Auto) 1.1 0.7 L [place] # (Auto) 1.4 H 0.6 Eos # (Auto) 0.1 0.0 Baso # (Auto) 0.0 0.0 Neutrophils % (Manual) 91 H 87 H Lymphocytes % (Manual) 6 L 5 L Reactive Lymphs % Monocytes % (Manual) 2 8 Eosinophils % (Manual) 1 Platelet Estimate Normal Normal RBC Morphology Anisocytosis (manual) Slight PT INR APTT D-Dimer, Quantitative Puncture Site pCO2 pO2 HCO3 ABG pH ABG Total CO2 ABG O2 Saturation ABG Base Excess Jose Test ABG Potassium A-a O2 Difference Respiratory Index Glucose Lactate Vent Mode Mechanical Rate FiO2 Tidal Volume PEEP Sodium 135 Potassium 3.5 L Chloride 100 Carbon Dioxide 17 L Anion Gap 21 H BUN 18 Creatinine 0.9 Est GFR ( Amer) > 60 Est GFR (Non-Af Amer) > 60 POC Glucose (mg/dL) Random Glucose 269 H D Hemoglobin A1c Calcium 7.9 L Phosphorus 3.7 Magnesium 1.6 Total Bilirubin 0.7 AST 326 H ALT 410 H Alkaline Phosphatase 99 Lactate Dehydrogenase Total Creatine Kinase 765 H CK-MB (Mass) 30.0 H Troponin I 6.2100 H* Total Protein 7.8 Albumin 4.9 Globulin 2.9 Albumin/Globulin Ratio 1.7 Procalcitonin Arterial Blood Potassium Urine Color Urine Clarity Urine pH Ur Specific [place] Urine Protein Urine Glucose (UA) Urine Ketones Urine Blood Urine Nitrate Urine Bilirubin Urine Urobilinogen Ur Leukocyte Esterase Urine WBC (Auto) Urine RBC (Auto) Ur Squamous Epith Cells Urine Bacteria Urine Opiates Screen Urine Methadone Screen Ur Barbiturates Screen Ur Phencyclidine Scrn Ur Amphetamines Screen U Benzodiazepines Scrn U Oth Cocaine Metabols U Cannabinoids Screen Blood Type Antibody Screen 04/14/18 04/14/18 04/14/18 03:50 03:50 05:17 WBC RBC Hgb Hct MCV MCH MCHC RDW Plt Count MPV Neut % (Auto) Lymph % (Auto) [place] % (Auto) Eos % (Auto) Baso % (Auto) Neut # (Auto) Lymph # (Auto) [place] # (Auto) Eos # (Auto) Baso # (Auto) Neutrophils % (Manual) Lymphocytes % (Manual) Reactive Lymphs % Monocytes % (Manual) Eosinophils % (Manual) Platelet Estimate RBC Morphology Anisocytosis (manual) PT 12.3 H INR 1.1 APTT 23 D D-Dimer, Quantitative Puncture Site R rad pCO2 33 L pO2 152 H HCO3 19.1 L ABG pH 7.33 L ABG Total CO2 18.4 L ABG O2 Saturation 100.2 H ABG Base Excess -7.5 L Jose Test Pos ABG Potassium 4.2 A-a O2 Difference 235.0 Respiratory Index 1.5 Glucose 263 H Lactate 3.2 H Vent Mode Prvc Mechanical Rate 18 FiO2 60.0 Tidal Volume 500 PEEP 5 Sodium 131 L 133.0 Potassium 5.7 H Chloride 102 105.0 Carbon Dioxide 17 L Anion Gap 19 BUN 18 Creatinine 0.9 Est GFR ( Amer) > 60 Est GFR (Non-Af Amer) > 60 POC Glucose (mg/dL) Random Glucose 321 H Hemoglobin A1c Calcium 7.7 L Phosphorus 2.1 L Magnesium 2.6 H Total Bilirubin 1.0 AST 235 H D ALT 322 H D Alkaline Phosphatase 70 Lactate Dehydrogenase Total Creatine Kinase CK-MB (Mass) Troponin I Total Protein 6.8 Albumin 4.2 Globulin 2.6 Albumin/Globulin Ratio 1.6 Procalcitonin Arterial Blood Potassium 4.2 Urine Color Urine Clarity Urine pH Ur Specific [place] Urine Protein Urine Glucose (UA) Urine Ketones Urine Blood Urine Nitrate Urine Bilirubin Urine Urobilinogen Ur Leukocyte Esterase Urine WBC (Auto) Urine RBC (Auto) Ur Squamous Epith Cells Urine Bacteria Urine Opiates Screen Urine Methadone Screen Ur Barbiturates Screen Ur Phencyclidine Scrn Ur Amphetamines Screen U Benzodiazepines Scrn U Oth Cocaine Metabols U Cannabinoids Screen Blood Type Antibody Screen Radiology Impressions: Radiology Impressions Chest X-Ray 04/13/18 10:43 IMPRESSION: ETT as above. NGT is doubled back on itself of within the distal esophagus and should be reposition. These findings discussed with Dr. Nguyen at approximately 1:40 p.m. with written down and read back verification.. Bibasilar atelectasis; rule out Head CT 04/13/18 11:03 IMPRESSION: No acute intracranial hemorrhage. There is mild homogeneous appearance of the brain parenchyma with subtle indistinct appearance of the corticomedullary junction. Findings could represent mild diffuse cerebral edema related to hypoxia however clinical correlation suggested. These findings discussed with Dr. Duran at 4:45 p.m. with written down and read back verification. EKG/Cardiology Studies: Cardiology / EKG Studies 04/13/18 10:39 EKG [ELECTROCARDIOGRAM] Stat Comment: Mode Of Transportation: BED Reason For Exam: cp 04/13/18 10:43 ELECTROCARDIOGRAM Stat Comment: Mode Of Transportation: BED Reason For Exam: chest pain 04/14/18 12:30 EKG [ELECTROCARDIOGRAM] DAILY Comment: Mode Of Transportation: Reason For Exam: code heart vasospasm 04/15/18 12:30 EKG [ELECTROCARDIOGRAM] DAILY Comment: Mode Of Transportation: Reason For Exam: code heart vasospasm 04/16/18 12:30 EKG [ELECTROCARDIOGRAM] DAILY Comment: Mode Of Transportation: Reason For Exam: code heart vasospasm 04/17/18 12:30 EKG [ELECTROCARDIOGRAM] DAILY Comment: Mode Of Transportation: Reason For Exam: code heart vasospasm Fingerstick Blood Sugar Results: 194 Review of Systems - Review of Systems Systems not reviewed;Unavailable: Intubated Critical Care Progress Note - Ventilator Checklist Head of Bed 30 Degrees: Yes Daily Sedation Vacation: Yes Daily Assessment of Readiness to Wean: Yes Daily Spontaneous Breathing Trial: No PUD Prophalyxis: Yes DVT Prophylaxis: Yes Oral Care with Chlorhexidine Gluconate {CHG}: Yes - Vent Settings MODE:: CPAP TIDAL VOLUME:: 500 RESP RATE:: 18 FIO2:: 60 PEEP:: 5 - Extremities/Vascular Does the Patient have a Campuzano Catheter?: Yes Does the Patient need a Campuzano Catheter?: Yes Catheter Insertion Criteria: Need for accurate measurement of output in critically ill patient - Prophylaxis GI Prophylaxis GI: PPI - Prophylaxis DVT Prophylaxis DVT: Heparin SQ - Nutrition Nutrition: Nutrition Category Date Time Status NPO Diet [DIET] Diets 04/13/18 Dinner Active Assessment/Plan - Assessment and Plan (Free Text) Assessment: 43M w/ pmhx of hypothyrodism, found unresponsive in parking lot in cardiac arrest, cardiac cath shows clean arteries, currently on hypothermic protocol, monitoring neurological status. Patient likely has poor prognosis 1) Anoxic brain injury 2) Acute respiratory failure 3) Cardiac arrest 4) Mycolonic jerks vs seizures Plan: Neuro - intubated - on versed drip - r/o seizure - video EEG - kepra 1500 Q12H - CT indicative of edema - r/o myclonic jerks - cisatracurium - hypothermic protocol Cardio - vitals stable - clean coronary arteries - EF 65% - continue to monitor - hypothermic protocol Resp - on ventilator - AB.33/33/152/19.1 - vent settings 18/60/500/5 - continue to monitor Renal - BUN/Cr wnl - NS w/ bicarb 75 ml/hr GI - NPO Heme - Stable H/H - elevated WBC - ?sepsis - vancomycin & zosyn Endo - hx of hypothyrodism - F/u TSH - c/w levothyroxine 125 mcg PO daily PPx; - GI: protonix - DVT: heparin SC, SCds
[2018-04-14] MEDS ORDERED: (Novolin R) Insulin Human Regular 100 units/ml vial SC ONE (07:30)
[2018-04-14 07:45] LABS: HEPATITIS B SURFACE AG Negative (NEGATIVE)
[2018-04-14 07:51] LABS: HEPATITIS A IGM NEGATIVE (NEGATIVE); HEPATITIS B CORE AB NEGATIVE (NEGATIVE)
[2018-04-14 08:03] LABS: HEPATITIS C ANTIBODY NEGATIVE (NEGATIVE)
[2018-04-14] MEDS: Cisatracurium Besylate 100 MG in Dextrose 5% In Water 240 ML IV PRN (08:09)
--- NOTE | 2018-04-14 09:29 | RAD ---
Date of service: 04/14/2018 PROCEDURE: CHEST RADIOGRAPH, 1 VIEW HISTORY: intubated COMPARISON: 04/13/2018. FINDINGS: Endotracheal tube terminates 3 cm proximal to the alan. The nasogastric tube is coiled in the distal esophagus. LUNGS: The lungs are well inflated and clear. PLEURA: No pneumothorax or pleural effusion. CARDIOVASCULAR: The heart is normal in size. No aortic atherosclerotic calcifications present. OSSEOUS STRUCTURES: Within normal limits for the patient's age. VISUALIZED UPPER ABDOMEN: Normal. OTHER FINDINGS: None. IMPRESSION: No active pulmonary disease. Endotracheal tube terminates 3 cm proximal to the alan. The nasogastric tube is coiled in the distal esophagus. These findings were discussed with Dr. Nguyen on 04/13/2018 and repositioning was recommended. Findings were discussed with the nurse taking care of the patient this morning on 04/14/2018 at 9:22 a.m.
[2018-04-14 10:18] LABS: BASO % 0.3 % (0.0-2.0); EOS % 0.1 % (0.0-4.0); LYMPH # 0.8 K/uL (1.0-4.3); LYMPH % 5.6 % (20.0-40.0); MEAN CELL VOLUME 92.3 fL (80.0-94.0); MEAN CORPUSCULAR HEMOGLOBIN 31.4 pg (27.0-31.0); MEAN PLATELET VOLUME 7.7 fL (7.2-11.7); MONO # 0.8 K/uL (0.0-0.8); MONO % 5.1 % (0.0-10.0); NEUT # 13.4 K/uL (1.8-7.0); NEUT % 88.9 % (50.0-75.0); NRBC % 0.1 % (0.0-2.0); PLATELET COUNT 178 K/uL (130-400); RBC 5.09 Mil/uL (4.40-5.90); RED CELL DISTRIBUTION WIDTH 12.9 % (11.5-14.5); WHITE BLOOD COUNT 15.1 K/uL (4.8-10.8)
[2018-04-14 10:30] LABS: INR 1.2; PROTHROMBIN TIME 13.1 SECONDS (9.7-12.2)
[2018-04-14 10:40] LABS: ALB/GLOB RATIO 1.5 (1.0-2.1); ALBUMIN 3.6 g/dL (3.5-5.0); ALT/SGPT 267 U/L (21-72); AST/SGOT 160 U/L (17-59); BLOOD UREA NITROGEN 17 mg/dL (9-20); GFR NON-AFRICAN AMERICAN > 60
[2018-04-14 10:59] LABS: LYMPHOCYTE 6 % (20-40); MONOCYTE 6 % (0-10); NEUTROPHIL 86 % (50-75); PLATELET ESTIMATE NORMAL (NORMAL); REACTIVE LYMPHOCYTES 2 % (0-0); TOTAL CELLS COUNTED 100
[2018-04-14] MEDS ORDERED: (Novolog) Insulin Aspart, Recombinant 100 u/ml 10 ml vial SC SCH (11:00)
[2018-04-14] MEDS: (Novolog) Insulin Aspart, Recombinant 100 u/ml 10 ml vial SC SCH ×2 (11:33→18:00)
[2018-04-14] MEDS: Levothyroxine 125 MCG TAB PO SCH (12:46)
[2018-04-14] MEDS ORDERED: Potassium Phosphate 15 MMOLE in Sodium Chloride 0.9% 250 ML IVPB ONE (14:26)
--- NOTE | 2018-04-14 15:02 | CP.PCM.PN ---
Subjective - Date & Time of Evaluation Date of Evaluation: 04/14/18 Time of Evaluation: 14:59 - Subjective Subjective: Neurology progress note was seen and examined today at bedside in the ICU. He is currently on Nimbex, propofol, Versed and not demonstrating any movements. Intubated and on the vent. I reviewed CT head and discussed the poor prognosis with the family. Objective - Vital Signs/Intake and Output Vital Signs (last 24 hours): Temp Pulse Resp BP Pulse Ox 94.8 F L 100 H 18 143/91 H 100 04/14/18 13:59 04/14/18 14:00 04/14/18 14:00 04/14/18 13:59 04/14/18 14:00 Intake and Output: 04/14/18 04/14/18 06:59 18:59 Intake Total 2210.7 2397.9 Output Total 2950 35 Balance -739.3 2362.9 - Medications Medications: Current Medications Heparin Sodium (Porcine) (Heparin) 5,000 units SC Q8 ROBERT Midazolam HCl 100 mg/ Dextrose 100 mls @ 2 mls/hr IV .Q24H ROBERT; Protocol Last Admin: 04/14/18 12:36 Dose: Not Given Cisatracurium Besylate 100 mg/ (Dextrose) 250 mls @ 41.03 mls/hr IV .Q6H6M PRN; Protocol PRN Reason: Seizure activity Last Titration: 04/14/18 11:00 Dose: 0.6 mcg/kg/min, 8.21 mls/hr Piperacillin Sod/Tazobactam (Sod 3.375 gm/ Sodium Chloride) 100 mls @ 200 mls/hr IVPB Q8H ROBERT; Protocol Last Admin: 04/14/18 13:54 Dose: 200 mls/hr Levetiracetam 1,500 mg/ (Dextrose) 115 mls @ 420 mls/hr IVPB Q12H ROBERT Last Admin: 04/14/18 13:53 Dose: 420 mls/hr Vancomycin/Sodium Chloride (Vancomycin 1 Gm/Ns 200 Ml) 1 gm in 200 mls @ 67 mls/hr IVPB Q12H ROBERT; Protocol Stop: 04/18/18 16:01 Last Admin: 04/14/18 02:59 Dose: 67 mls/hr Propofol (Diprivan) 1,000 mg in 100 mls @ 2.735 mls/hr IV .Q24H PRN; Protocol PRN Reason: TITRATE PER MD ORDER Last Titration: 04/14/18 08:04 Dose: 5 mcg/kg/min, 2.735 mls/hr Sodium Bicarbonate 100 meq/ (Sodium Chloride) 1,100 mls @ 75 mls/hr IV .[id number] ONE Stop: 04/15/18 02:09 Last Admin: 04/14/18 12:46 Dose: 75 mls/hr Sodium Chloride (Sodium Chloride 0.9%) 1,000 mls @ 50 mls/hr IV .Q20H ROBERT Last Admin: 04/14/18 11:00 Dose: 50 mls/hr Potassium Phosphate 15 mmole/ (Sodium Chloride) 255 mls @ 42.5 mls/hr IVPB ONCE ONE Stop: 04/14/18 20:25 Insulin Aspart (Novolog) 0 unit SC Q6 ROBERT; Protocol Last Admin: 04/14/18 11:33 Dose: 2 u Levothyroxine Sodium (Synthroid) 125 mcg PO DAILY@0630 [facility] Last Admin: 04/14/18 12:46 Dose: 125 mcg Pantoprazole Sodium (Protonix Inj) 40 mg IVP DAILY [facility] Last Admin: 04/14/18 09:00 Dose: 40 mg - Labs Labs: 04/14/18 10:12 04/14/18 10:12 PT 13.1 SECONDS (9.7-12.2) H 04/14/18 10:12 INR 1.2 04/14/18 10:12 APTT 28 SECONDS (21-34) D 04/14/18 10:12 - Neurological Exam Additional comments: Currently on a paralytic and multiple brain suppressants. Neurological exam may not be accurate. Pupils were not very reactive, but not dilated. No movement. GCS 3T. Assessment and Plan (1) Anoxic brain injury Assessment & Plan: The patient had a prolonged episode of anoxia and based on the first CT head, there was already significant edema. He was having myoclonic jerks, and was started on Nimbex as a result. Will obtain Video EEG and a repeat CT head for further evaluation. Prognosis is poor. Status: Acute
--- NOTE | 2018-04-14 16:34 | CT ---
Date of service: 04/14/2018 PROCEDURE: CT HEAD WITHOUT CONTRAST. HISTORY: s/p anoxic brain injury COMPARISON: 04/13/2018. TECHNIQUE: Axial computed tomography images were obtained through the head/brain without intravenous contrast. Radiation dose: Total exam DLP = 1384.62 mGy-cm. This CT exam was performed using one or more of the following dose reduction techniques: Automated exposure control, adjustment of the mA and/or kV according to patient size, and/or use of iterative reconstruction technique. FINDINGS: HEMORRHAGE: No intracranial hemorrhage. BRAIN: There is mild diffuse effacement of cortical sulci and indistinct pablo-white matter differentiation. There is no territorial infarction, mass or mass effect. There is no definite evidence for herniation. VENTRICLES: The ventricles are normal in size, shape and configuration. No hydrocephalus. CALVARIUM: There is no calvarial fracture or extracranial soft tissue swelling. PARANASAL SINUSES: There is fluid in the paranasal sinuses, expected finding in intubated patient. MASTOID AIR CELLS: Predominantly clear. OTHER FINDINGS: None. IMPRESSION: Little interval change in mild diffuse effacement of cortical sulci and indistinct pablo-white matter differentiation related to hypoxic-anoxic insult with the stated clinical history.
[2018-04-14] MEDS: Propofol 10 mg/ml 1,000 MG/100 ML VIAL IV PRN (16:55)
[2018-04-14 17:01] LABS: BASO % 0.1 % (0.0-2.0); EOS % 0.2 % (0.0-4.0); HEMOGLOBIN 17.2 g/dL (12.0-18.0); LYMPH # 0.4 K/uL (1.0-4.3); LYMPH % 2.6 % (20.0-40.0); MEAN CORPUSCULAR HEMOGLOBIN 30.6 pg (27.0-31.0); MEAN CORPUSCULAR HGB CONC 33.2 g/dL (33.0-37.0); MEAN PLATELET VOLUME 7.7 fL (7.2-11.7); MONO # 0.9 K/uL (0.0-0.8); MONO % 5.6 % (0.0-10.0); NEUT # 15.5 K/uL (1.8-7.0); NEUT % 91.5 % (50.0-75.0); NRBC % 0.1 % (0.0-2.0); PLATELET COUNT 219 K/uL (130-400); RBC 5.62 Mil/uL (4.40-5.90); RED CELL DISTRIBUTION WIDTH 13.1 % (11.5-14.5); WHITE BLOOD COUNT 16.9 K/uL (4.8-10.8)
[2018-04-14 17:02] LABS: URINE BACTERIA RARE (<OCC); URINE BILIRUBIN NEGATIVE (NEGATIVE); URINE BLOOD 3+ (NEGATIVE); URINE CLARITY Clear (Clear); URINE COLOR Yellow (YELLOW); URINE GLUCOSE (UA) 2+ mg/dL (Normal); URINE LEUKOCYTE ESTERASE NEG Leu/uL (Negative); URINE PROTEIN NEGATIVE (NEGATIVE); URINE UROBILINOGEN NORMAL mg/dL (0.2-1.0)
[2018-04-14 17:09] LABS: INR 1.2; PROTHROMBIN TIME 12.9 SECONDS (9.7-12.2)
[2018-04-14 17:12] LABS: ALB/GLOB RATIO 1.5 (1.0-2.1); ALBUMIN 4.3 g/dL (3.5-5.0); ALT/SGPT 280 U/L (21-72); AST/SGOT 144 U/L (17-59); BLOOD UREA NITROGEN 16 mg/dL (9-20); CALCIUM 7.7 mg/dl (8.6-10.4); GFR NON-AFRICAN AMERICAN > 60
--- NOTE | 2018-04-14 18:16 | CARD ---
APPROVED REPORT Date of service: 04/14/2018 EXAM: Two-dimensional and M-mode echocardiogram with Doppler and color Doppler. Other Information Quality : GoodRhythm : INDICATION Status/Post IN Code Heart 2D DIMENSIONS IVSd0.8 (0.7-1.1cm)LVDd3.9 (3.9-5.9cm) PWd0.8 (0.7-1.1cm)LA Kuhzfu89 (18-58mL) LVDs2.1 (2.5-4.0cm)FS (%) 46.2 % LVEF (%)78.2 (>50%)LVEF (Savage's)65.07 % M-Mode DIMENSIONS Left Atrium (MM)3.40 (2.5-4.0cm)IVSd0.87 (0.7-1.1cm) Aortic Root3.52 (2.2-3.7cm)LVDd4.31 (4.0-5.6cm) Aortic Cusp Exc.2.26 (1.5-2.0cm)PWd0.61 (0.7-1.1cm) FS (%) 42 %LVDs2.48 (2.0-3.8cm) LVEF (%)74 (>50%) Mitral Valve MV E Dfcffbky96.3cm/sMV A Angkqmbn74.8cm/sE/A ratio2.5 TDI Lateral E' Peak V11.90cm/sMedial E' Peak V9.71cm/sE/Lateral E'7.6 E/Medial E'9.3 Tricuspid Valve TR Peak [id number]/sTR Peak [id number] LEFT VENTRICLE The left ventricle is normal size. There is normal left ventricular wall thickness. The left ventricular function is normal. The left ventricular ejection fraction is within the normal range. 65% No regional wall motion abnormalities noted. The left ventricular diastolic function is normal. No left ventricle thrombus noted on this study. There is no ventricular septal defect visualized. There is no left ventricular aneurysm. There is no mass noted in the left ventricle. RIGHT VENTRICLE The right ventricle is normal size. There is normal right ventricular wall thickness. The right ventricular systolic function is normal. ATRIA The left atrium size is normal. The right atrium size is normal. The interatrial septum is intact with no evidence for an atrial septal defect. AORTIC VALVE The aortic valve is normal in structure and function. No aortic regurgitation is present. There is no aortic valvular stenosis. There is no aortic valvular vegetation. MITRAL VALVE The mitral valve is normal in structure and function. There is no evidence of mitral valve prolapse. There is no mitral valve stenosis. There is no mitral valve regurgitation noted. TRICUSPID VALVE The tricuspid valve is normal in structure and function. There is m mild tricuspid valve regurgitation noted. There is no tricuspid valve prolapse or vegetation. There is no tricuspid valve stenosis. PULMONIC VALVE The pulmonary valve is normal in structure and function. There is no pulmonic valvular regurgitation. There is no pulmonic valvular stenosis. GREAT VESSELS The aortic root is normal in size. The ascending aorta is normal in size. The pulmonary artery is normal. The IVC is normal in size and collapses >50% with inspiration. PERICARDIAL EFFUSION The pericardium appears normal. There is no pleural effusion. <Conclusion> Normal Study
--- NOTE | 2018-04-14 21:50 | VASCLAB ---
Date of service: 04/14/2018 PROCEDURE: Lower Extremity Venous Duplex Exam. HISTORY: pt unresponsive with vasopsams, code heart PRIORS: None. TECHNIQUE: Bilateral common femoral, femoral, popliteal and posterior tibial, peroneal and great saphenous veins were evaluated. Flow was assessed with color Doppler, compressibility, assessment of phasic flow and augmentation response. Report prepared by Barrington Ding, BS, RVT FINDINGS: RIGHT: 1. Common Femoral Vein: 1.1. Compressibility-could not be evaluated. 2. Femoral Vein: 2.1. Compressibility - Fully compressible: Thrombus - None : Flow - Phasic: Augmentation -Normal: Reflux - None. 3. Popliteal Vein: 3.1. Compressibility - Fully compressible: Thrombus - None : Flow - Phasic: Augmentation -Normal: Reflux - None. 4. Posterior Tibial Vein: 4.1. Compressibility - Fully compressible: Thrombus - None: Flow - Phasic: Augmentation -Normal: Reflux - None. 5. Peroneal Vein: 5.1. Compressibility - Fully compressible: Thrombus - None: Flow - Phasic: Augmentation -Normal: Reflux - None. 6. Great Saphenous Vein: 6.1. Compressibility - : Thrombus - : Flow - : Augmentation - : Reflux - . LEFT: 1. Common Femoral Vein: 1.1. Compressibility - Fully compressible: Thrombus - None: Flow - Phasic: Augmentation -Normal: Reflux - None. 2. Femoral Vein: 2.1. Compressibility - Fully compressible: Thrombus - None: Flow - Phasic: Augmentation -Normal: Reflux - None. 3. Popliteal Vein: 3.1. Compressibility - Fully compressible: Thrombus - None : Flow - Phasic: Augmentation -Normal: Reflux - None. 4. Posterior Tibial Vein: 4.1. Compressibility - Fully compressible: Thrombus - None: Flow - Phasic: Augmentation -Normal: Reflux - None. 5. Peroneal Vein: 5.1. Compressibility - Fully compressible: Thrombus - None: Flow - Phasic: Augmentation -Normal: Reflux - None. 6. Great Saphenous Vein: 6.1. Compressibility - : Thrombus - : Flow - : Augmentation - : Reflux - . OTHER FINDINGS: Right: Unable to image the right common femoral vein due to line in the groin. Left: None significant. IMPRESSION: Right: No evidence of deep or superficial vein thrombosis of the right lower extremity. Normal valve function noted of the right side. Left: No evidence of deep or superficial vein thrombosis of the left lower extremity. Normal valve function noted of the left side.
[2018-04-14 22:14] LABS: BASO # 0.1 K/uL (0.0-0.2); BASO % 0.3 % (0.0-2.0); EOS # 0.2 K/uL (0.0-0.7); EOS % 0.8 % (0.0-4.0); HEMOGLOBIN 16.1 g/dL (12.0-18.0); LYMPH # 0.6 K/uL (1.0-4.3); LYMPH % 3.4 % (20.0-40.0); MEAN CELL VOLUME 91.6 fL (80.0-94.0); MEAN CORPUSCULAR HGB CONC 33.8 g/dL (33.0-37.0); MEAN PLATELET VOLUME 7.7 fL (7.2-11.7); MONO % 5.6 % (0.0-10.0); NEUT # 16.7 K/uL (1.8-7.0); NEUT % 89.9 % (50.0-75.0); PLATELET COUNT 202 K/uL (130-400); RED CELL DISTRIBUTION WIDTH 12.9 % (11.5-14.5); WHITE BLOOD COUNT 18.6 K/uL (4.8-10.8)
[2018-04-14 22:25] LABS: INR 1.2; PROTHROMBIN TIME 13.3 SECONDS (9.7-12.2)
[2018-04-14 22:31] LABS: BLOOD UREA NITROGEN 14 mg/dL (9-20); CALCIUM 7.5 mg/dl (8.6-10.4); GFR NON-AFRICAN AMERICAN > 60
[2018-04-14 22:39] LABS: PLATELET ESTIMATE NORMAL (NORMAL)
[2018-04-14 22:44] LABS: BANDS 6 % (0-2); LYMPHOCYTE 4 % (20-40); MONOCYTE 3 % (0-10); NEUTROPHIL 87 % (50-75); TOTAL CELLS COUNTED 100
[2018-04-14 22:45] LABS: ANISOCYTOSIS SLIGHT; HYPERSEGMENTATION PRESENT; LARGE PLATELETS PRESENT; MICROCYTOSIS SLIGHT; POIKILOCYTOSIS SLIGHT; POLYCHROMIC SLIGHT; SMUDGE CELLS PRESENT; SPHEROCYTES SLIGHT
--- NOTE | 2018-04-14 23:12 | CP.PCM.PN ---
Subjective - Date & Time of Evaluation Date of Evaluation: 04/14/18 Time of Evaluation: 14:10 - Subjective Subjective: Patient was seen and examined today at bedside in the ICU. He is currently on Nimbex, propofol, Versed and not demonstrating any movements. Intubated. Family at bed side Objective - Vital Signs/Intake and Output Vital Signs (last 24 hours): Temp Pulse Resp BP Pulse Ox 94.8 F L 100 H 18 143/91 H 100 04/14/18 13:59 04/14/18 14:00 04/14/18 14:00 04/14/18 13:59 04/14/18 14:00 Intake and Output: 04/14/18 04/14/18 06:59 18:59 Intake Total 2210.7 2397.9 Output Total 2950 35 Balance -739.3 2362.9 - Medications Medications: Current Medications Heparin Sodium (Porcine) (Heparin) 5,000 units SC Q8 ROBERT Midazolam HCl 100 mg/ Dextrose 100 mls @ 2 mls/hr IV .Q24H ROBERT; Protocol Last Admin: 04/14/18 12:36 Dose: Not Given Cisatracurium Besylate 100 mg/ (Dextrose) 250 mls @ 41.03 mls/hr IV .Q6H6M PRN; Protocol PRN Reason: Seizure activity Last Titration: 04/14/18 11:00 Dose: 0.6 mcg/kg/min, 8.21 mls/hr Piperacillin Sod/Tazobactam (Sod 3.375 gm/ Sodium Chloride) 100 mls @ 200 mls/hr IVPB Q8H ROBERT; Protocol Last Admin: 04/14/18 13:54 Dose: 200 mls/hr Levetiracetam 1,500 mg/ (Dextrose) 115 mls @ 420 mls/hr IVPB Q12H ROBERT Last Admin: 04/14/18 13:53 Dose: 420 mls/hr Vancomycin/Sodium Chloride (Vancomycin 1 Gm/Ns 200 Ml) 1 gm in 200 mls @ 67 mls/hr IVPB Q12H ROBERT; Protocol Stop: 04/18/18 16:01 Last Admin: 04/14/18 02:59 Dose: 67 mls/hr Propofol (Diprivan) 1,000 mg in 100 mls @ 2.735 mls/hr IV .Q24H PRN; Protocol PRN Reason: TITRATE PER MD ORDER Last Titration: 04/14/18 08:04 Dose: 5 mcg/kg/min, 2.735 mls/hr Sodium Bicarbonate 100 meq/ (Sodium Chloride) 1,100 mls @ 75 mls/hr IV .[id number] ONE Stop: 04/15/18 02:09 Last Admin: 04/14/18 12:46 Dose: 75 mls/hr Sodium Chloride (Sodium Chloride 0.9%) 1,000 mls @ 50 mls/hr IV .Q20H ROBERT Last Admin: 04/14/18 11:00 Dose: 50 mls/hr Potassium Phosphate 15 mmole/ (Sodium Chloride) 255 mls @ 42.5 mls/hr IVPB ONCE ONE Stop: 04/14/18 20:25 Insulin Aspart (Novolog) 0 unit SC Q6 ROBERT; Protocol Last Admin: 04/14/18 11:33 Dose: 2 u Levothyroxine Sodium (Synthroid) 125 mcg PO DAILY@0630 [facility] Last Admin: 04/14/18 12:46 Dose: 125 mcg Pantoprazole Sodium (Protonix Inj) 40 mg IVP DAILY [facility] Last Admin: 04/14/18 09:00 Dose: 40 mg - Labs Labs: 04/14/18 10:12 04/14/18 10:12 PT 13.1 SECONDS (9.7-12.2) H 04/14/18 10:12 INR 1.2 04/14/18 10:12 APTT 28 SECONDS (21-34) D 04/14/18 10:12 - Neurological Exam Additional comments: Currently on a paralytic and multiple brain suppressants. Neurological exam may not be accurate. Pupils were not very reactive, but not dilated. No movement. GCS 3T. Assessment and Plan (1) Anoxic brain injury Assessment & Plan: Poor prognosis Now off Hypothermia Positive drug screen D/W family Objective - Vital Signs/Intake and Output Vital Signs (last 24 hours): Temp Pulse Resp BP Pulse Ox 94.4 F L 116 H 18 151/92 H 100 04/14/18 22:30 04/14/18 22:30 04/14/18 22:30 04/14/18 22:30 04/14/18 22:01 Intake and Output: 04/14/18 04/15/18 18:59 06:59 Intake Total 3444.0 912.4 Output Total 1535 1775 Balance 1909.0 -862.6 - Medications Medications: Current Medications Heparin Sodium (Porcine) (Heparin) 5,000 units SC Q8 ROBERT Last Admin: 04/14/18 21:47 Dose: 5,000 units Midazolam HCl 100 mg/ Dextrose 100 mls @ 2 mls/hr IV .Q24H ROBERT; Protocol Last Admin: 04/14/18 12:36 Dose: Not Given Cisatracurium Besylate 100 mg/ (Dextrose) 250 mls @ 41.03 mls/hr IV .Q6H6M PRN; Protocol PRN Reason: Seizure activity Last Titration: 04/14/18 11:00 Dose: 0.6 mcg/kg/min, 8.21 mls/hr Piperacillin Sod/Tazobactam (Sod 3.375 gm/ Sodium Chloride) 100 mls @ 200 mls/hr IVPB Q8H ROBERT; Protocol Last Admin: 04/14/18 21:25 Dose: 200 mls/hr Levetiracetam 1,500 mg/ (Dextrose) 115 mls @ 420 mls/hr IVPB Q12H ROBERT Last Admin: 04/14/18 13:53 Dose: 420 mls/hr Vancomycin/Sodium Chloride (Vancomycin 1 Gm/Ns 200 Ml) 1 gm in 200 mls @ 67 mls/hr IVPB Q12H ROBERT; Protocol Stop: 04/18/18 16:01 Last Admin: 04/14/18 16:43 Dose: 67 mls/hr Propofol (Diprivan) 1,000 mg in 100 mls @ 2.735 mls/hr IV .Q24H PRN; Protocol PRN Reason: TITRATE PER MD ORDER Last Admin: 04/14/18 16:55 Dose: 10 mcg/kg/min, 5.47 mls/hr Sodium Bicarbonate 100 meq/ (Sodium Chloride) 1,100 mls @ 75 mls/hr IV .[id number] ONE Stop: 04/15/18 02:09 Last Admin: 04/14/18 12:46 Dose: 75 mls/hr Sodium Chloride (Sodium Chloride 0.9%) 1,000 mls @ 50 mls/hr IV .Q20H ROBERT Last Admin: 04/14/18 11:00 Dose: 50 mls/hr Insulin Aspart (Novolog) 0 unit SC Q6 [facility]; Protocol Last Admin: 04/14/18 18:00 Dose: Not Given Levothyroxine Sodium (Synthroid) 125 mcg PO DAILY@0630 [facility] Last Admin: 04/14/18 12:46 Dose: 125 mcg Pantoprazole Sodium (Protonix Inj) 40 mg IVP DAILY [facility] Last Admin: 04/14/18 09:00 Dose: 40 mg - Labs Labs: 04/14/18 22:09 04/14/18 22:09 PT 13.3 SECONDS (9.7-12.2) H 04/14/18 22:09 INR 1.2 04/14/18 22:09 APTT 30 SECONDS (21-34) 04/14/18 22:09
[2018-04-14 23:24] LABS: PLATELET ESTIMATE NORMAL (NORMAL)
[2018-04-14 23:28] LABS: BANDS 5 % (0-2); LYMPHOCYTE 3 % (20-40); MONOCYTE 7 % (0-10); NEUTROPHIL 85 % (50-75); TOTAL CELLS COUNTED 100
[2018-04-14 23:29] LABS: ANISOCYTOSIS SLIGHT; HYPERSEGMENTATION PRESENT; LARGE PLATELETS PRESENT; MICROCYTOSIS SLIGHT; POIKILOCYTOSIS SLIGHT; SMUDGE CELLS PRESENT
[2018-04-15] MEDS: (Novolog) Insulin Aspart, Recombinant 100 u/ml 10 ml vial SC SCH ×4 (00:13→18:39)
[2018-04-15] MEDS: Propofol 10 mg/ml 1,000 MG/100 ML VIAL IV PRN ×2 (03:46→17:16)
[2018-04-15] MEDS: Vancomycin 1 gm/NS 200 ml 1 GM/200 ML BAG IVPB SCH ×2 (03:48→17:03)
[2018-04-15] MEDS: Cisatracurium Besylate 100 MG in Dextrose 5% In Water 240 ML IV PRN ×2 (05:11→20:36)
[2018-04-15] MEDS: Piperacillin/Tazobact 3.375 GM in Sodium Chloride 100 ML IVPB SCH ×3 (06:07→21:52)
[2018-04-15 06:23] LABS: ARTERIAL BLOOD GAS HCO3 17.9 mmol/L (21-28); ARTERIAL BLOOD GAS O2 SAT 99.5 % (95-98); ARTERIAL BLOOD GAS PCO2 21 mm/Hg (35-45); ARTERIAL BLOOD GAS PH 7.41 (7.35-7.45); ARTERIAL BLOOD GAS PO2 139 mm/Hg (80-100); ARTERIAL BLOOD GAS TCO2 13.9 mmol/L (22-28)
[2018-04-15 06:25] LABS: BASO % 0.1 % (0.0-2.0); EOS # 0.3 K/uL (0.0-0.7); EOS % 1.8 % (0.0-4.0); HEMOGLOBIN 16.2 g/dL (12.0-18.0); LYMPH # 0.9 K/uL (1.0-4.3); LYMPH % 5.1 % (20.0-40.0); MEAN CELL VOLUME 92.4 fL (80.0-94.0); MEAN CORPUSCULAR HEMOGLOBIN 31.1 pg (27.0-31.0); MEAN CORPUSCULAR HGB CONC 33.7 g/dL (33.0-37.0); MEAN PLATELET VOLUME 8.2 fL (7.2-11.7); MONO # 0.9 K/uL (0.0-0.8); MONO % 5.5 % (0.0-10.0); NEUT % 87.5 % (50.0-75.0); PLATELET COUNT 184 K/uL (130-400); RED CELL DISTRIBUTION WIDTH 12.9 % (11.5-14.5); WHITE BLOOD COUNT 17.2 K/uL (4.8-10.8)
[2018-04-15 06:35] LABS: INR 1.2
[2018-04-15 06:52] LABS: ALB/GLOB RATIO 1.4 (1.0-2.1); ALBUMIN 3.8 g/dL (3.5-5.0); ALT/SGPT 207 U/L (21-72); AST/SGOT 117 U/L (17-59); BLOOD UREA NITROGEN 13 mg/dL (9-20); CALCIUM 8.3 mg/dl (8.6-10.4); GFR NON-AFRICAN AMERICAN > 60
[2018-04-15] MEDS: Levothyroxine 125 MCG TAB PO SCH (07:39)
[2018-04-15] MEDS: Sodium Chloride 0.9% 1,000 ML IV SCH (07:39)
--- NOTE | 2018-04-15 08:20 | CP.PCM.PN ---
Subjective - Date & Time of Evaluation Date of Evaluation: 04/15/18 Time of Evaluation: 07:45 - Subjective Subjective: Hospitalist Progress Note Patient was seen and examined at 7:45 AM 04/15/18 with Son Jer and at the bedside 43 year old male who was admitted after cardiopulmonary arrest. Anoxic brain injury is suspected. He is currently intubated and on Nimbex, Propofol, and Midazolam. Hypothermic protocol is currently in place. Video EEG is being performed. He is on Zosyn and Vancomycin for leukocytosis with blood culture currently negative to date. Spoke with Nurse Hernandez caring for patient: NO bowel movement yet 2 liters of Urine in the past 12 hours ROS is not possible due to patient unresponsiveness General: Intubated on vent with NGT HEENT: Pupils are slightly dilated and sluggishly reactive to light, NO lymphadenopathy, NO thyromegaly Cardio: NS1 and NS2, NO M/R/G with tachycardia Resp: Course breath sounds diffusely GI: Central Obesity, BS are decreased in all 4 quadrants, Soft Ext: Pulses are strong and equal upper and lower extremities, NO edema, Capillary refill is 2 seconds Neuro: exam is not possible Assessments: 1). Anoxic Brain Injury Status: Acute 2). Acute Respiratory Failure Status: Acute 3). Cardiac Arrest Status: Acute 4). Myoclonic Movements Status: Acute 5). Leukocytosis Status: Acute 6). Hx Hypothyroidism Status: Chronic Spoke with Son Jer (who speaks Swazi) who was at bedside with patient's and Daughter and updated him on patient's current status. Jer explains that patient does not have an Advance Directive and primary decision maker for patient would be his . I have explained to Jer that we will get Palliative Care Nurse Micaela involved to help family make decisions and he and are in agreement. Yosvany Riddle D.O. [phone] Objective - Vital Signs/Intake and Output Vital Signs (last 24 hours): Temp Pulse Resp BP Pulse Ox 96.1 F L 130 H 19 141/92 H 100 04/15/18 07:00 04/15/18 08:01 04/15/18 08:01 04/15/18 08:01 04/15/18 08:01 Intake and Output: 04/15/18 04/15/18 06:59 18:59 Intake Total 2416.0 Output Total 2685 Balance -269.0 - Medications Medications: Current Medications Heparin Sodium (Porcine) (Heparin) 5,000 units SC Q8 ROBERT Last Admin: 04/15/18 06:07 Dose: 5,000 units Midazolam HCl 100 mg/ Dextrose 100 mls @ 2 mls/hr IV .Q24H ROBERT; Protocol Last Admin: 04/14/18 12:36 Dose: Not Given Cisatracurium Besylate 100 mg/ (Dextrose) 250 mls @ 41.03 mls/hr IV .Q6H6M PRN; Protocol PRN Reason: Seizure activity Last Admin: 04/15/18 05:11 Dose: 1 mcg/kg/min, 13.68 mls/hr Piperacillin Sod/Tazobactam (Sod 3.375 gm/ Sodium Chloride) 100 mls @ 200 mls/hr IVPB Q8H ROBERT; Protocol Last Admin: 04/15/18 06:07 Dose: 200 mls/hr Levetiracetam 1,500 mg/ (Dextrose) 115 mls @ 420 mls/hr IVPB Q12H ROBERT Last Admin: 04/15/18 02:15 Dose: 420 mls/hr Vancomycin/Sodium Chloride (Vancomycin 1 Gm/Ns 200 Ml) 1 gm in 200 mls @ 67 mls/hr IVPB Q12H ROBERT; Protocol Stop: 04/18/18 16:01 Last Admin: 04/15/18 03:48 Dose: 67 mls/hr Propofol (Diprivan) 1,000 mg in 100 mls @ 2.735 mls/hr IV .Q24H PRN; Protocol PRN Reason: TITRATE PER MD ORDER Last Admin: 04/15/18 03:46 Dose: 10 mcg/kg/min, 5.47 mls/hr Sodium Chloride (Sodium Chloride 0.9%) 1,000 mls @ 50 mls/hr IV .Q20H ROBERT Last Admin: 04/15/18 07:39 Dose: Not Given Insulin Aspart (Novolog) 0 unit SC Q6 ROBERT; Protocol Last Admin: 04/15/18 06:26 Dose: Not Given Levothyroxine Sodium (Synthroid) 125 mcg PO DAILY@0630 ROBERT Last Admin: 04/15/18 07:39 Dose: Not Given Pantoprazole Sodium (Protonix Inj) 40 mg IVP DAILY [facility] Last Admin: 04/14/18 09:00 Dose: 40 mg - Labs Labs: 04/15/18 06:14 04/15/18 06:14 PT 13.0 SECONDS (9.7-12.2) H 04/15/18 06:14 INR 1.2 04/15/18 06:14 APTT 28 SECONDS (21-34) 04/15/18 06:14
[2018-04-15 08:43] LABS: TOTAL CELLS COUNTED 100
[2018-04-15 08:50] LABS: PLATELET ESTIMATE NORMAL (NORMAL)
[2018-04-15 08:58] LABS: BANDS 3 % (0-2); EOSINOPHIL 2 % (0-4); LYMPHOCYTE 6 % (20-40); MONOCYTE 6 % (0-10); NEUTROPHIL 83 % (50-75)
[2018-04-15] MEDS ORDERED: Potassium Phosphate 15 MMOLE in Sodium Chloride 0.9% 250 ML IVPB SCH (09:45)
--- NOTE | 2018-04-15 10:40 | CP.PCM.CON ---
History of Present Illness - History of Present Illness History of Present Illness: Nephrology Consultation Note: Assessment: critical transinet oliguria likely hemodynamic resolved hypophosphatemia hypokalemia cardio-pulmonary arrest with shock liver and brain edema obesity hypothyroidism opiates + Plan No acute need for renal replacement therapy at this time. Hypertension control with meds as ordered. Maintain hemodynamics stable. Avoid hypotension. Monitor Input/Output, daily weights and renal function with basic metabolic panel cardiology and neuro following supplement lytes as needed. ordered for kphos Dose meds/antibiotics for GFR >60 Glycemic control Further work up/management as per primary team Thanks for allowing me to participate in care of your patient. Will follow patient with you. Please call if any Qs. had d/w team and family bedside Dr Noble Miller Office: [phone] Chief Complaint; unable Reason for consult: oliguria HPI: Pt is a 43 M with hx of obesity hypothyroidism was brought with complaints of cardio-pulmonary arrest. s/p CPR and intubation, hypothermia protocol. noted decreased urine output overnigt hence renal consulted no known OTC/herbal meds or NSAIDs Noted recent iodinated contrast exposure as s/p cardiac cath. opiates + ROS: unable to obtain from pt Physical Examination: General Appearance: Comfortable, ill appearing orally intubated Vitals reviewed and noted as below Head; Atraumatic, normocephalic ENT: intubated EYES: Pupils are equal, round, semidilated and reactive to light accommodation. Sclera is anicteric. Neck; supple no lymphadenopathy, no thyromegaly or bruit Lungs: Normal respiratory rate/effort. Breath sounds bilateral equal and clear Heart: Increased rate. s1s2 normal. No rub or gallop. Extremities: no edema. No varicose veins Neurological: Patient is unresponsive sedated Skin: Warm and dry. Normal turgor. No rash. Palpitation: Normal elasticity for age Abdomen: Abdomen is soft. Bowel sounds +. There is no abdominal tenderness, no guarding/rigidity no organomegaly Psych: unable MSK: no joint tenderness or swelling. Digits and nails normal, no deformity : kidney or bladder not palpable. has terry Labs/imaging reviewed. Past medical history, past surgical history, family history, social history, allergy reviewed and noted as below Family hx: no hx of CKD. Rest non-contributory Past Patient History - Past Medical History & Family History Past Medical History?: Yes - Past Social History Smoking Status: Unknown If Ever Smoked - CARDIAC Hx Hypertension: Yes - PULMONARY Hx Sleep Apnea: Yes (USES BIPAP) - NEUROLOGICAL Hx Neurological Disorder: No - HEENT Hx HEENT Problems: No - RENAL Hx Chronic Kidney Disease: No - ENDOCRINE/METABOLIC Hx Endocrine Disorders: Yes Hx Hypothyroidism: Yes - HEMATOLOGICAL/ONCOLOGICAL Hx Blood Disorders: No - INTEGUMENTARY Hx Dermatological Problems: No - MUSCULOSKELETAL/RHEUMATOLOGICAL Hx Musculoskeletal Disorders: No Hx Falls: No - GASTROINTESTINAL Hx Gastrointestinal Disorders: No - GENITOURINARY/GYNECOLOGICAL Hx Genitourinary Disorders: No - PSYCHIATRIC Hx Substance Use: No - SURGICAL HISTORY Hx Surgeries: No - ANESTHESIA Hx Anesthesia: No Hx Anesthesia Reactions: No Hx Malignant Hyperthermia: No Has any member of the family had a problem w/ anesthesia?: No Meds Allergies/Adverse Reactions: Allergies Allergy/AdvReac Type Severity Reaction Status Date / Time No Known Allergies Allergy Unverified 04/13/18 10:42 - Medications Medications: Current Medications Heparin Sodium (Porcine) (Heparin) 5,000 units SC Q8 ROBERT Last Admin: 04/15/18 06:07 Dose: 5,000 units Midazolam HCl 100 mg/ Dextrose 100 mls @ 2 mls/hr IV .Q24H ROBERT; Protocol Last Admin: 04/14/18 12:36 Dose: Not Given Cisatracurium Besylate 100 mg/ (Dextrose) 250 mls @ 41.03 mls/hr IV .Q6H6M PRN; Protocol PRN Reason: Seizure activity Last Admin: 04/15/18 05:11 Dose: 1 mcg/kg/min, 13.68 mls/hr Piperacillin Sod/Tazobactam (Sod 3.375 gm/ Sodium Chloride) 100 mls @ 200 mls/hr IVPB Q8H ROBERT; Protocol Last Admin: 04/15/18 06:07 Dose: 200 mls/hr Levetiracetam 1,500 mg/ (Dextrose) 115 mls @ 420 mls/hr IVPB Q12H ROBERT Last Admin: 04/15/18 02:15 Dose: 420 mls/hr Vancomycin/Sodium Chloride (Vancomycin 1 Gm/Ns 200 Ml) 1 gm in 200 mls @ 67 mls/hr IVPB Q12H ROBERT; Protocol Stop: 04/18/18 16:01 Last Admin: 04/15/18 03:48 Dose: 67 mls/hr Propofol (Diprivan) 1,000 mg in 100 mls @ 2.735 mls/hr IV .Q24H PRN; Protocol PRN Reason: TITRATE PER MD ORDER Last Admin: 04/15/18 03:46 Dose: 10 mcg/kg/min, 5.47 mls/hr Sodium Chloride (Sodium Chloride 0.9%) 1,000 mls @ 50 mls/hr IV .Q20H ROBERT Last Admin: 04/15/18 07:39 Dose: Not Given Potassium Phosphate 15 mmole/ (Sodium Chloride) 255 mls @ 42.5 mls/hr IVPB Q6H ROBERT Stop: 04/15/18 22:44 Insulin Aspart (Novolog) 0 unit SC Q6 ROBERT; Protocol Last Admin: 04/15/18 06:26 Dose: Not Given Levothyroxine Sodium (Synthroid) 125 mcg PO DAILY@0630 [facility] Last Admin: 04/15/18 07:39 Dose: Not Given Pantoprazole Sodium (Protonix Inj) 40 mg IVP DAILY [facility] Last Admin: 04/14/18 09:00 Dose: 40 mg Results - Vital Signs Recent Vital Signs: Last Vital Signs Temp 96.2 F L 04/15/18 08:30 Pulse 127 H 04/15/18 10:18 Resp 19 04/15/18 10:18 BP 125/82 04/15/18 10:18 Pulse Ox 100 04/15/18 10:18 - Labs Result Diagrams: 04/15/18 06:14 04/15/18 06:14 Labs: Laboratory Results - last 24 hr 04/14/18 04/14/18 04/14/18 10:12 10:12 16:51 WBC 16.9 H RBC 5.62 Hgb 17.2 Hct 51.7 H MCV 92.0 MCH 30.6 MCHC 33.2 RDW 13.1 Plt Count 219 MPV 7.7 Neut % (Auto) 91.5 H Lymph % (Auto) 2.6 L Harrison % (Auto) 5.6 Eos % (Auto) 0.2 Baso % (Auto) 0.1 Neut # (Auto) 15.5 H Lymph # (Auto) 0.4 L Harrison # (Auto) 0.9 H Eos # (Auto) 0.0 Baso # (Auto) 0.0 Neutrophils % (Manual) 86 H 87 H Band Neutrophils % 6 H Lymphocytes % (Manual) 6 L 4 L Reactive Lymphs % 2 H Monocytes % (Manual) 6 3 Eosinophils % (Manual) Hypersegmented Polys Present Smudge Cells Present Platelet Estimate Normal Normal Large Platelets Present RBC Morphology Normal Polychromasia Slight Poikilocytosis (manual Slight Anisocytosis (manual) Slight Microcytosis (manual) Slight Spherocytes Slight PT INR APTT Puncture Site pCO2 pO2 HCO3 ABG pH ABG Total CO2 ABG O2 Saturation ABG Base Excess Jose Test ABG Potassium A-a O2 Difference Respiratory Index Glucose Lactate Vent Mode Mechanical Rate FiO2 Tidal Volume PEEP Crit Value Called To Crit Value Called By Crit Value Read Back Blood Gas Notified Time Sodium 133 Potassium 3.7 Chloride 105 Carbon Dioxide 20 L Anion Gap 12 BUN 17 Creatinine 0.7 L Est GFR ( Amer) > 60 Est GFR (Non-Af Amer) > 60 POC Glucose (mg/dL) Random Glucose 198 H D Hemoglobin A1c Calcium 7.0 L Phosphorus 1.4 L Magnesium 2.1 Total Bilirubin 1.1 AST 160 H D ALT 267 H Alkaline Phosphatase 69 Total Protein 6.0 L Albumin 3.6 Globulin 2.4 Albumin/Globulin Ratio 1.5 TSH 3rd Generation 0.06 L Arterial Blood Potassium Urine Color Urine Clarity Urine pH Ur Specific [place] Urine Protein Urine Glucose (UA) Urine Ketones Urine Blood Urine Nitrate Urine Bilirubin Urine Urobilinogen Ur Leukocyte Esterase Urine WBC (Auto) Urine RBC (Auto) Urine Bacteria 04/14/18 04/14/18 04/14/18 16:51 16:51 16:51 WBC RBC Hgb Hct MCV MCH MCHC RDW Plt Count MPV Neut % (Auto) Lymph % (Auto) Harrison % (Auto) Eos % (Auto) Baso % (Auto) Neut # (Auto) Lymph # (Auto) Harrison # (Auto) Eos # (Auto) Baso # (Auto) Neutrophils % (Manual) Band Neutrophils % Lymphocytes % (Manual) Reactive Lymphs % Monocytes % (Manual) Eosinophils % (Manual) Hypersegmented Polys Smudge Cells Platelet Estimate Large Platelets RBC Morphology Polychromasia Poikilocytosis (manual Anisocytosis (manual) Microcytosis (manual) Spherocytes PT 12.9 H INR 1.2 APTT 30 Puncture Site pCO2 pO2 HCO3 ABG pH ABG Total CO2 ABG O2 Saturation ABG Base Excess Jose Test ABG Potassium A-a O2 Difference Respiratory Index Glucose Lactate Vent Mode Mechanical Rate FiO2 Tidal Volume PEEP Crit Value Called To Crit Value Called By Crit Value Read Back Blood Gas Notified Time Sodium 135 Potassium 3.6 Chloride 102 Carbon Dioxide 24 Anion Gap 13 BUN 16 Creatinine 0.8 Est GFR ( Amer) > 60 Est GFR (Non-Af Amer) > 60 POC Glucose (mg/dL) Random Glucose 163 H Hemoglobin A1c Calcium 7.7 L Phosphorus 2.2 L Magnesium 1.7 Total Bilirubin 1.4 H AST 144 H ALT 280 H Alkaline Phosphatase 81 Total Protein 7.2 Albumin 4.3 Globulin 2.8 Albumin/Globulin Ratio 1.5 TSH 3rd Generation Arterial Blood Potassium Urine Color Yellow Urine Clarity Clear Urine pH 5.0 Ur Specific [place] 1.012 Urine Protein Negative Urine Glucose (UA) 2+ H Urine Ketones Negative Urine Blood 3+ H Urine Nitrate Negative Urine Bilirubin Negative Urine Urobilinogen Normal Ur Leukocyte Esterase Neg Urine WBC (Auto) 3 Urine RBC (Auto) 380 H Urine Bacteria Rare 04/14/18 04/14/18 04/14/18 17:49 22:09 22:09 WBC 18.6 H RBC 5.20 Hgb 16.1 Hct 47.6 MCV 91.6 MCH 31.0 MCHC 33.8 RDW 12.9 Plt Count 202 MPV 7.7 Neut % (Auto) 89.9 H Lymph % (Auto) 3.4 L Harrison % (Auto) 5.6 Eos % (Auto) 0.8 Baso % (Auto) 0.3 Neut # (Auto) 16.7 H Lymph # (Auto) 0.6 L Harrison # (Auto) 1.0 H Eos # (Auto) 0.2 Baso # (Auto) 0.1 Neutrophils % (Manual) 85 H Band Neutrophils % 5 H Lymphocytes % (Manual) 3 L Reactive Lymphs % Monocytes % (Manual) 7 Eosinophils % (Manual) Hypersegmented Polys Present Smudge Cells Present Platelet Estimate Normal Large Platelets Present RBC Morphology Polychromasia Poikilocytosis (manual Slight Anisocytosis (manual) Slight Microcytosis (manual) Slight Spherocytes PT 13.3 H INR 1.2 APTT 30 Puncture Site pCO2 pO2 HCO3 ABG pH ABG Total CO2 ABG O2 Saturation ABG Base Excess Jose Test ABG Potassium A-a O2 Difference Respiratory Index Glucose Lactate Vent Mode Mechanical Rate FiO2 Tidal Volume PEEP Crit Value Called To Crit Value Called By Crit Value Read Back Blood Gas Notified Time Sodium Potassium Chloride Carbon Dioxide Anion Gap BUN Creatinine Est GFR ( Amer) Est GFR (Non-Af Amer) POC Glucose (mg/dL) 120 H Random Glucose Hemoglobin A1c Calcium Phosphorus Magnesium Total Bilirubin AST ALT Alkaline Phosphatase Total Protein Albumin Globulin Albumin/Globulin Ratio TSH 3rd Generation Arterial Blood Potassium Urine Color Urine Clarity Urine pH Ur Specific [place] Urine Protein Urine Glucose (UA) Urine Ketones Urine Blood Urine Nitrate Urine Bilirubin Urine Urobilinogen Ur Leukocyte Esterase Urine WBC (Auto) Urine RBC (Auto) Urine Bacteria 04/14/18 04/15/18 04/15/18 22:09 00:01 05:24 WBC RBC Hgb Hct MCV MCH MCHC RDW Plt Count MPV Neut % (Auto) Lymph % (Auto) Harrison % (Auto) Eos % (Auto) Baso % (Auto) Neut # (Auto) Lymph # (Auto) Harrison # (Auto) Eos # (Auto) Baso # (Auto) Neutrophils % (Manual) Band Neutrophils % Lymphocytes % (Manual) Reactive Lymphs % Monocytes % (Manual) Eosinophils % (Manual) Hypersegmented Polys Smudge Cells Platelet Estimate Large Platelets RBC Morphology Polychromasia Poikilocytosis (manual Anisocytosis (manual) Microcytosis (manual) Spherocytes PT INR APTT Puncture Site Rb pCO2 21 L pO2 139 H HCO3 17.9 L ABG pH 7.41 ABG Total CO2 13.9 L ABG O2 Saturation 99.5 H ABG Base Excess -9.1 L Jose Test Na ABG Potassium 1.9 L* A-a O2 Difference 263.0 Respiratory Index 1.9 Glucose 80 Lactate 0.8 Vent Mode Prvc Mechanical Rate 18 FiO2 60.0 Tidal Volume 500 PEEP 5 Crit Value Called To Jennifer norman/nelda Crit Value Called By Mandie castano/rt Crit Value Read Back Y Blood Gas Notified Time 625 Sodium 139 151.0 H Potassium 4.3 Chloride 106 126.0 H Carbon Dioxide 25 Anion Gap 12 BUN 14 Creatinine 0.7 L Est GFR ( Amer) > 60 Est GFR (Non-Af Amer) > 60 POC Glucose (mg/dL) 126 H Random Glucose 135 H Hemoglobin A1c Calcium 7.5 L Phosphorus 2.2 L Magnesium 1.9 Total Bilirubin AST ALT Alkaline Phosphatase Total Protein Albumin Globulin Albumin/Globulin Ratio TSH 3rd Generation Arterial Blood Potassium 1.9 L* Urine Color Urine Clarity Urine pH Ur Specific [place] Urine Protein Urine Glucose (UA) Urine Ketones Urine Blood Urine Nitrate Urine Bilirubin Urine Urobilinogen Ur Leukocyte Esterase Urine WBC (Auto) Urine RBC (Auto) Urine Bacteria 04/15/18 04/15/18 04/15/18 06:14 06:14 06:14 WBC 17.2 H RBC 5.20 Hgb 16.2 Hct 48.0 MCV 92.4 MCH 31.1 H MCHC 33.7 RDW 12.9 Plt Count 184 MPV 8.2 Neut % (Auto) 87.5 H Lymph % (Auto) 5.1 L Harrison % (Auto) 5.5 Eos % (Auto) 1.8 Baso % (Auto) 0.1 Neut # (Auto) 15.0 H Lymph # (Auto) 0.9 L Harrison # (Auto) 0.9 H Eos # (Auto) 0.3 Baso # (Auto) 0.0 Neutrophils % (Manual) 83 H Band Neutrophils % 3 H Lymphocytes % (Manual) 6 L Reactive Lymphs % TEST NOT PERFORMED Monocytes % (Manual) 6 Eosinophils % (Manual) 2 Hypersegmented Polys Smudge Cells Platelet Estimate Normal Large Platelets RBC Morphology Normal Polychromasia Poikilocytosis (manual Anisocytosis (manual) Microcytosis (manual) Spherocytes PT INR APTT Puncture Site pCO2 pO2 HCO3 ABG pH ABG Total CO2 ABG O2 Saturation ABG Base Excess Jose Test ABG Potassium A-a O2 Difference Respiratory Index Glucose Lactate Vent Mode Mechanical Rate FiO2 Tidal Volume PEEP Crit Value Called To Crit Value Called By Crit Value Read Back Blood Gas Notified Time Sodium 137 Potassium 3.9 Chloride 107 Carbon Dioxide 24 Anion Gap 10 BUN 13 Creatinine 0.6 L Est GFR ( Amer) > 60 Est GFR (Non-Af Amer) > 60 POC Glucose (mg/dL) Random Glucose 128 H Hemoglobin A1c 5.8 Calcium 8.3 L Phosphorus 1.7 L Magnesium 2.2 Total Bilirubin 0.9 AST 117 H ALT 207 H D Alkaline Phosphatase 78 Total Protein 6.4 Albumin 3.8 Globulin 2.6 Albumin/Globulin Ratio 1.4 TSH 3rd Generation Arterial Blood Potassium Urine Color Urine Clarity Urine pH Ur Specific [place] Urine Protein Urine Glucose (UA) Urine Ketones Urine Blood Urine Nitrate Urine Bilirubin Urine Urobilinogen Ur Leukocyte Esterase Urine WBC (Auto) Urine RBC (Auto) Urine Bacteria 04/15/18 06:14 WBC RBC Hgb Hct MCV MCH MCHC RDW Plt Count MPV Neut % (Auto) Lymph % (Auto) Harrison % (Auto) Eos % (Auto) Baso % (Auto) Neut # (Auto) Lymph # (Auto) Harrison # (Auto) Eos # (Auto) Baso # (Auto) Neutrophils % (Manual) Band Neutrophils % Lymphocytes % (Manual) Reactive Lymphs % Monocytes % (Manual) Eosinophils % (Manual) Hypersegmented Polys Smudge Cells Platelet Estimate Large Platelets RBC Morphology Polychromasia Poikilocytosis (manual Anisocytosis (manual) Microcytosis (manual) Spherocytes PT 13.0 H INR 1.2 APTT 28 Puncture Site pCO2 pO2 HCO3 ABG pH ABG Total CO2 ABG O2 Saturation ABG Base Excess Jose Test ABG Potassium A-a O2 Difference Respiratory Index Glucose Lactate Vent Mode Mechanical Rate FiO2 Tidal Volume PEEP Crit Value Called To Crit Value Called By Crit Value Read Back Blood Gas Notified Time Sodium Potassium Chloride Carbon Dioxide Anion Gap BUN Creatinine Est GFR ( Amer) Est GFR (Non-Af Amer) POC Glucose (mg/dL) Random Glucose Hemoglobin A1c Calcium Phosphorus Magnesium Total Bilirubin AST ALT Alkaline Phosphatase Total Protein Albumin Globulin Albumin/Globulin Ratio TSH 3rd Generation Arterial Blood Potassium Urine Color Urine Clarity Urine pH Ur Specific [place] Urine Protein Urine Glucose (UA) Urine Ketones Urine Blood Urine Nitrate Urine Bilirubin Urine Urobilinogen Ur Leukocyte Esterase Urine WBC (Auto) Urine RBC (Auto) Urine Bacteria
[2018-04-15] MEDS: Midazolam 50 mg/10 ml 100 MG in Dextrose 5% In Water 80 ML IV SCH (11:15)
[2018-04-15] MEDS: Potassium Phosphate 15 MMOLE in Sodium Chloride 0.9% 250 ML IVPB SCH ×2 (11:32→17:22)
[2018-04-15] MEDS ORDERED: Lacosamide 200mg/20ml Inj IV STA (12:22)
[2018-04-15] MEDS ORDERED: SODIUM CHLORIDE 0.9% IV STA (12:54)
[2018-04-15] MEDS ORDERED: LACOSAMIDE IV STA (12:54)
[2018-04-15] MEDS ORDERED: Valproate 1,500 MG in Sodium Chloride 0.9% 100 ML IVPB ONE (13:30)
--- NOTE | 2018-04-15 13:32 | CT ---
Date of service: 04/15/2018 PROCEDURE: CT HEAD WITHOUT CONTRAST. HISTORY: Epilepsy COMPARISON: The comparison made with prior CT scan brain dated 04/14/2018 and 04/13/2018. TECHNIQUE: Axial computed tomography images were obtained through the head/brain without intravenous contrast. Radiation dose: Total exam DLP = 1496.83 mGy-cm. This CT exam was performed using one or more of the following dose reduction techniques: Automated exposure control, adjustment of the mA and/or kV according to patient size, and/or use of iterative reconstruction technique. FINDINGS: HEMORRHAGE: No acute parenchymal, subarachnoid or extra-axial hemorrhage. BRAIN: Extensive diffuse homogeneous appearance of the brain parenchyma with loss of the corticomedullary distinction and on diminution of cerebral sulci as well as diminution of cerebral sulci and ventricles... Findings consistent with sequela of diffuse hypoxia. VENTRICLES: No obstructive hydrocephalus CALVARIUM: Unremarkable. PARANASAL SINUSES: Interval progressive opacification of all the sphenoid and ethmoid air complexes. Mild-moderate mucosal thickening both maxillary antrum again noted. MASTOID AIR CELLS: Unremarkable as visualized. No inflammatory changes. OTHER FINDINGS: None. IMPRESSION: Extensive diffuse homogeneous appearance of the brain parenchyma with loss of the corticomedullary distinction and on diminution of cerebral sulci. Findings consistent with sequela diffusehypoxia.
--- NOTE | 2018-04-15 13:44 | PCM.EEG ---
Electroencephalogram Report - Electroencephalogram Report Procedure Date: 04/14/18 Medication: Nimbex, Midazolam, Keppra, Vimpat Interpretation: Technical Information: This was a 16-channel EEG, 1-channel EKG routine EEG performed using [employer] equipment. Electrodes were applied using the 10/20 international placement system. Clinical Information: coma following cardiac arrest. EEG Details During the entire study was not discernible awake EEG architecture, the tracing showed diffuse bilateral attenuation with frequencies in the 4 to 5 Hz., there was no reactivity of the EEG. The were occasional bursts of high amplitude mainly left sided sharp activity with periods of interburst attenuation, there were also rhythmic muscle artifact seen most likely myoclonus. Drowsiness not seen, sleep not seen. Hyperventilation was not performed. Photic stimulation was not performed. Interictal activity; none Focal abnormality; none . Impression: This is an abnormal EEG record that demonstrate the presence of severe non specific diffuse disturbance of cortical activity, this is keeping with a diffuse pablo matter dysfunction, these findings are not specific. There were rhythmic muscle artifact seen, most likely mycolonus, this are usually seen in hypoxic brain insults, please correlate clinically. No seizures. Patient is not in status epilepticus
--- NOTE | 2018-04-15 14:00 | RAD ---
Date of service: 04/15/2018 HISTORY: portable COMPARISON: 04/14/2018 FINDINGS: LUNGS: Lung volumes lower limits of normal. A defibrillating device obscures the medial left hemidiaphragm. And the medial left lung base. Is also confounding tubing accordion like horizontally traversing over the upper lung parenchyma. No dense consolidation seen. Endotracheal tube tip inferior clavicle level-above the alan PLEURA: Small left pleural effusion possible. Current left costophrenic angle appears more ill-defined than before. No pneumothorax seen. CARDIOVASCULAR: No aortic atherosclerotic calcification present. Normal cardiac size. Minimal pulmonary venous congestion possible. No significant change appreciated OSSEOUS STRUCTURES: No significant abnormalities. VISUALIZED UPPER ABDOMEN: Interval repositioning of the nasogastric tube currently the sidehole projects over the expected position of the gastric body. No coiling back into the esophagus suggested currently OTHER FINDINGS: None. IMPRESSION: Interval repositioning of the nasogastric tube-currently its sidehole appears satisfactory in position-the tip probably courses retrograde towards the gastric lateral upper body. Endotracheal tube as above. Minimal pulmonary venous congestion [id number]
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
--- NOTE | 2018-04-15 14:47 | CP.CCUPN ---
<Ramon Hussein S - Last Filed: 04/15/18 14:52> CCU Objective - Vital Signs / Intake & Output Vital Signs (Last 4 hours): Vital Signs Pulse Resp BP Pulse Ox 04/15/18 12:18 136 H 20 117/64 100 04/15/18 12:00 135 H 20 100 04/15/18 11:18 132 H 19 122/77 100 04/15/18 11:00 131 H 20 100 Intake and Output (Last 8hrs): Intake & Output 04/14/18 04/15/18 04/15/18 22:59 06:59 14:59 Intake Total 1927.8 1434.3 756.4 Output Total 3275 910 470 Balance -1347.2 524.3 286.4 Weight 215 lb 2 oz Intake: IV 164.6 250 Intake, IV Amount 1763.2 1184.3 756.4 Left Antecubital 662.5 650 436 Left Distal Port 251.5 Antecubital Left Wrist 675 375 150 R femoral venous sheath 13.8 R venous sheath 16 R venous sheath proximal 96.4 99.3 110.4 port Right AC Y port 42.5 44.0 44.0 Right Antecubital 21.5 16 Oral 0 Output: Gastric Amount 250 50 60 Stomach 250 50 60 Urine 3025 860 410 Urethral (Campuzano) 3025 860 410 Emesis 0 Oral Regurgitation 0 Other: # Bowel Movements 0 0 0 - Medications Active Medications: Active Medications Generic Name Dose Route Start Last Admin Trade Name Freq PRN Reason Stop Dose Admin Heparin Sodium (Porcine) 5,000 units 04/14/18 14:00 04/15/18 13:43 Heparin SC 5,000 units Q8 ROBERT Administration Midazolam HCl 100 mg/ Dextrose 100 mls @ 2 mls/hr 04/13/18 11:15 04/14/18 12:36 IV Not Given .Q24H ROBERT Protocol 0.02 MG/KG/HR Cisatracurium Besylate 100 mg/ 250 mls @ 41.03 mls/hr 04/13/18 14:00 04/15/18 05:11 Dextrose IV 1 mcg/kg/min .Q6H6M PRN 13.68 mls/hr Seizure activity Administration Protocol 3 MCG/KG/MIN Piperacillin Sod/Tazobactam 100 mls @ 200 mls/hr 04/13/18 14:15 04/15/18 14:34 Sod 3.375 gm/ Sodium Chloride IVPB 200 mls/hr Q8H ROBERT Administration Protocol Levetiracetam 1,500 mg/ 115 mls @ 420 mls/hr 04/13/18 14:30 04/15/18 14:33 Dextrose IVPB 420 mls/hr Q12H ROBERT Administration Vancomycin/Sodium Chloride 1 gm in 200 mls @ 67 mls/hr 04/13/18 16:00 04/15/18 03:48 Vancomycin 1 Gm/Ns 200 Ml IVPB 04/18/18 16:01 67 mls/hr Q12H ROBERT Administration Protocol Propofol 1,000 mg in 100 mls @ 2.735 mls/hr 04/13/18 22:57 04/15/18 03:46 Diprivan IV 10 mcg/kg/min .Q24H PRN 5.47 mls/hr TITRATE PER MD ORDER Administration Protocol 5 MCG/KG/MIN Sodium Chloride 1,000 mls @ 50 mls/hr 04/14/18 10:36 04/15/18 07:39 Sodium Chloride 0.9% IV Not Given .Q20H ROBERT Potassium Phosphate 15 mmole/ 255 mls @ 42.5 mls/hr 04/15/18 10:45 04/15/18 11:32 Sodium Chloride IVPB 04/15/18 22:44 42.5 mls/hr Q6H ROBERT Administration Valproate Sodium 1,000 mg/ 110 mls @ 100 mls/hr 04/15/18 18:00 Sodium Chloride IVPB Q12H ROBERT Lacosamide 100 mg/ Sodium 60 mls @ 100 mls/hr 04/15/18 20:00 Chloride IVPB Q12H ROBERT Insulin Aspart 0 unit 04/14/18 12:00 04/15/18 12:42 Novolog SC Not Given Q6 [facility] Protocol Levothyroxine Sodium 125 mcg 04/14/18 12:30 04/15/18 07:39 Synthroid PO Not Given DAILY@0630 ROBERT Pantoprazole Sodium 40 mg 04/14/18 10:00 04/15/18 10:41 Protonix Inj IVP 40 mg DAILY ROBERT Administration - Patient Studies Lab Studies: Microbiology Studies 04/13/18 14:40 Blood Culture - Preliminary Blood NO GROWTH AFTER 48 HOURS 04/13/18 14:30 Blood Culture - Preliminary Blood NO GROWTH AFTER 48 HOURS 04/14/18 16:51 Urine Culture - Final Urine,Campuzano No Growth (<1,000 CFU/ML) 04/13/18 14:44 MRSA Culture (Admit) - Final Nose MRSA NOT DETECTED Lab Studies 04/15/18 04/15/18 04/15/18 Range/Units 11:15 06:14 06:14 WBC (4.8-10.8) K/uL RBC (4.40-5.90) Mil/uL Hgb (12.0-18.0) g/dL Hct (35.0-51.0) % MCV (80.0-94.0) fL MCH (27.0-31.0) pg MCHC (33.0-37.0) g/dL RDW (11.5-14.5) % Plt Count (130-400) K/uL MPV (7.2-11.7) fL Neut % (Auto) (50.0-75.0) % Lymph % (Auto) (20.0-40.0) % [place] % (Auto) (0.0-10.0) % Eos % (Auto) (0.0-4.0) % Baso % (Auto) (0.0-2.0) % Neut # (Auto) (1.8-7.0) K/uL Lymph # (Auto) (1.0-4.3) K/uL [place] # (Auto) (0.0-0.8) K/uL Eos # (Auto) (0.0-0.7) K/uL Baso # (Auto) (0.0-0.2) K/uL Neutrophils % (Manual) (50-75) % Band Neutrophils % (0-2) % Lymphocytes % (Manual) (20-40) % Reactive Lymphs % Monocytes % (Manual) (0-10) % Eosinophils % (Manual) (0-4) % Hypersegmented Polys Smudge Cells Platelet Estimate (NORMAL) Large Platelets RBC Morphology Polychromasia Poikilocytosis (manual Anisocytosis (manual) Microcytosis (manual) Spherocytes PT 13.0 H (9.7-12.2) SECONDS INR 1.2 APTT 28 (21-34) SECONDS Puncture Site pCO2 (35-45) mm/Hg pO2 (80-100) mm/Hg HCO3 (21-28) mmol/L ABG pH (7.35-7.45) ABG Total CO2 (22-28) mmol/L ABG O2 Saturation (95-98) % ABG Base Excess (-2.0-3.0) mmol/L Jose Test ABG Potassium (3.6-5.2) mmol/L A-a O2 Difference mm/Hg Respiratory Index Glucose (75-110) mg/dl Lactate (0.7-2.1) mmol/L Vent Mode Mechanical Rate FiO2 % Tidal Volume PEEP Crit Value Called To Crit Value Called By Crit Value Read Back Blood Gas Notified Time Sodium 137 (132-148) mmol/L Potassium 3.9 (3.6-5.2) mmol/L Chloride 107 (98-107) mmol/L Carbon Dioxide 24 (22-30) mmol/L Anion Gap 10 (10-20) BUN 13 (9-20) mg/dL Creatinine 0.6 L (0.8-1.5) mg/dL Est GFR ( Amer) > 60 Est GFR (Non-Af Amer) > 60 POC Glucose (mg/dL) 121 H (65-110) mg/dL Random Glucose 128 H (75-110) mg/dL Hemoglobin A1c (4.2-6.5) % Calcium 8.3 L (8.6-10.4) mg/dl Phosphorus 1.7 L (2.5-4.5) mg/dL Magnesium 2.2 (1.6-2.3) mg/dL Total Bilirubin 0.9 (0.2-1.3) mg/dL AST 117 H (17-59) U/L ALT 207 H D (21-72) U/L Alkaline Phosphatase 78 (38-126) U/L Total Protein 6.4 (6.3-8.3) g/dL Albumin 3.8 (3.5-5.0) g/dL Globulin 2.6 (2.2-3.9) gm/dL Albumin/Globulin Ratio 1.4 (1.0-2.1) Arterial Blood Potassium (3.6-5.2) mmol/L Urine Color (YELLOW) Urine Clarity (Clear) Urine pH (5.0-8.0) Ur Specific [place] (1.003-1.030) Urine Protein (NEGATIVE) mg/dL Urine Glucose (UA) (Normal) mg/dL Urine Ketones (NEGATIVE) mg/dL Urine Blood (NEGATIVE) Urine Nitrate (NEGATIVE) Urine Bilirubin (NEGATIVE) Urine Urobilinogen (0.2-1.0) mg/dL Ur Leukocyte Esterase (Negative) Ezra/uL Urine WBC (Auto) (0-5) /hpf Urine RBC (Auto) (0-3) /hpf Urine Bacteria (<OCC) 04/15/18 04/15/18 04/15/18 Range/Units 06:14 06:14 05:50 WBC 17.2 H (4.8-10.8) K/uL RBC 5.20 (4.40-5.90) Mil/uL Hgb 16.2 (12.0-18.0) g/dL Hct 48.0 (35.0-51.0) % MCV 92.4 (80.0-94.0) fL MCH 31.1 H (27.0-31.0) pg MCHC 33.7 (33.0-37.0) g/dL RDW 12.9 (11.5-14.5) % Plt Count 184 (130-400) K/uL MPV 8.2 (7.2-11.7) fL Neut % (Auto) 87.5 H (50.0-75.0) % Lymph % (Auto) 5.1 L (20.0-40.0) % [place] % (Auto) 5.5 (0.0-10.0) % Eos % (Auto) 1.8 (0.0-4.0) % Baso % (Auto) 0.1 (0.0-2.0) % Neut # (Auto) 15.0 H (1.8-7.0) K/uL Lymph # (Auto) 0.9 L (1.0-4.3) K/uL [place] # (Auto) 0.9 H (0.0-0.8) K/uL Eos # (Auto) 0.3 (0.0-0.7) K/uL Baso # (Auto) 0.0 (0.0-0.2) K/uL Neutrophils % (Manual) 83 H (50-75) % Band Neutrophils % 3 H (0-2) % Lymphocytes % (Manual) 6 L (20-40) % Reactive Lymphs % TEST NOT PERFORMED Monocytes % (Manual) 6 (0-10) % Eosinophils % (Manual) 2 (0-4) % Hypersegmented Polys Smudge Cells Platelet Estimate Normal (NORMAL) Large Platelets RBC Morphology Normal Polychromasia Poikilocytosis (manual Anisocytosis (manual) Microcytosis (manual) Spherocytes PT (9.7-12.2) SECONDS INR APTT (21-34) SECONDS Puncture Site pCO2 (35-45) mm/Hg pO2 (80-100) mm/Hg HCO3 (21-28) mmol/L ABG pH (7.35-7.45) ABG Total CO2 (22-28) mmol/L ABG O2 Saturation (95-98) % ABG Base Excess (-2.0-3.0) mmol/L Jose Test ABG Potassium (3.6-5.2) mmol/L A-a O2 Difference mm/Hg Respiratory Index Glucose (75-110) mg/dl Lactate (0.7-2.1) mmol/L Vent Mode Mechanical Rate FiO2 % Tidal Volume PEEP Crit Value Called To Crit Value Called By Crit Value Read Back Blood Gas Notified Time Sodium (132-148) mmol/L Potassium (3.6-5.2) mmol/L Chloride (98-107) mmol/L Carbon Dioxide (22-30) mmol/L Anion Gap (10-20) BUN (9-20) mg/dL Creatinine (0.8-1.5) mg/dL Est GFR ( Amer) Est GFR (Non-Af Amer) POC Glucose (mg/dL) 129 H (65-110) mg/dL Random Glucose (75-110) mg/dL Hemoglobin A1c 5.8 (4.2-6.5) % Calcium (8.6-10.4) mg/dl Phosphorus (2.5-4.5) mg/dL Magnesium (1.6-2.3) mg/dL Total Bilirubin (0.2-1.3) mg/dL AST (17-59) U/L ALT (21-72) U/L Alkaline Phosphatase (38-126) U/L Total Protein (6.3-8.3) g/dL Albumin (3.5-5.0) g/dL Globulin (2.2-3.9) gm/dL Albumin/Globulin Ratio (1.0-2.1) Arterial Blood Potassium (3.6-5.2) mmol/L Urine Color (YELLOW) Urine Clarity (Clear) Urine pH (5.0-8.0) Ur Specific [place] (1.003-1.030) Urine Protein (NEGATIVE) mg/dL Urine Glucose (UA) (Normal) mg/dL Urine Ketones (NEGATIVE) mg/dL Urine Blood (NEGATIVE) Urine Nitrate (NEGATIVE) Urine Bilirubin (NEGATIVE) Urine Urobilinogen (0.2-1.0) mg/dL Ur Leukocyte Esterase (Negative) Ezra/uL Urine WBC (Auto) (0-5) /hpf Urine RBC (Auto) (0-3) /hpf Urine Bacteria (<OCC) 04/15/18 04/15/18 04/14/18 Range/Units 05:24 00:01 22:09 WBC (4.8-10.8) K/uL RBC (4.40-5.90) Mil/uL Hgb (12.0-18.0) g/dL Hct (35.0-51.0) % MCV (80.0-94.0) fL MCH (27.0-31.0) pg MCHC (33.0-37.0) g/dL RDW (11.5-14.5) % Plt Count (130-400) K/uL MPV (7.2-11.7) fL Neut % (Auto) (50.0-75.0) % Lymph % (Auto) (20.0-40.0) % [place] % (Auto) (0.0-10.0) % Eos % (Auto) (0.0-4.0) % Baso % (Auto) (0.0-2.0) % Neut # (Auto) (1.8-7.0) K/uL Lymph # (Auto) (1.0-4.3) K/uL [place] # (Auto) (0.0-0.8) K/uL Eos # (Auto) (0.0-0.7) K/uL Baso # (Auto) (0.0-0.2) K/uL Neutrophils % (Manual) (50-75) % Band Neutrophils % (0-2) % Lymphocytes % (Manual) (20-40) % Reactive Lymphs % Monocytes % (Manual) (0-10) % Eosinophils % (Manual) (0-4) % Hypersegmented Polys Smudge Cells Platelet Estimate (NORMAL) Large Platelets RBC Morphology Polychromasia Poikilocytosis (manual Anisocytosis (manual) Microcytosis (manual) Spherocytes PT (9.7-12.2) SECONDS INR APTT (21-34) SECONDS Puncture Site Rb pCO2 21 L (35-45) mm/Hg pO2 139 H (80-100) mm/Hg HCO3 17.9 L (21-28) mmol/L ABG pH 7.41 (7.35-7.45) ABG Total CO2 13.9 L (22-28) mmol/L ABG O2 Saturation 99.5 H (95-98) % ABG Base Excess -9.1 L (-2.0-3.0) mmol/L Jose Test Na ABG Potassium 1.9 L* (3.6-5.2) mmol/L A-a O2 Difference 263.0 mm/Hg Respiratory Index 1.9 Glucose 80 (75-110) mg/dl Lactate 0.8 (0.7-2.1) mmol/L Vent Mode Prvc Mechanical Rate 18 FiO2 60.0 % Tidal Volume 500 PEEP 5 Crit Value Called To Jennifer norman/rn Crit Value Called By Mandie castano/rt Crit Value Read Back Y Blood Gas Notified Time 625 Sodium 151.0 H 139 (132-148) mmol/L Potassium 4.3 (3.6-5.2) mmol/L Chloride 126.0 H 106 (98-107) mmol/L Carbon Dioxide 25 (22-30) mmol/L Anion Gap 12 (10-20) BUN 14 (9-20) mg/dL Creatinine 0.7 L (0.8-1.5) mg/dL Est GFR ( Amer) > 60 Est GFR (Non-Af Amer) > 60 POC Glucose (mg/dL) 126 H (65-110) mg/dL Random Glucose 135 H (75-110) mg/dL Hemoglobin A1c (4.2-6.5) % Calcium 7.5 L (8.6-10.4) mg/dl Phosphorus 2.2 L (2.5-4.5) mg/dL Magnesium 1.9 (1.6-2.3) mg/dL Total Bilirubin (0.2-1.3) mg/dL AST (17-59) U/L ALT (21-72) U/L Alkaline Phosphatase (38-126) U/L Total Protein (6.3-8.3) g/dL Albumin (3.5-5.0) g/dL Globulin (2.2-3.9) gm/dL Albumin/Globulin Ratio (1.0-2.1) Arterial Blood Potassium 1.9 L* (3.6-5.2) mmol/L Urine Color (YELLOW) Urine Clarity (Clear) Urine pH (5.0-8.0) Ur Specific [place] (1.003-1.030) Urine Protein (NEGATIVE) mg/dL Urine Glucose (UA) (Normal) mg/dL Urine Ketones (NEGATIVE) mg/dL Urine Blood (NEGATIVE) Urine Nitrate (NEGATIVE) Urine Bilirubin (NEGATIVE) Urine Urobilinogen (0.2-1.0) mg/dL Ur Leukocyte Esterase (Negative) Ezra/uL Urine WBC (Auto) (0-5) /hpf Urine RBC (Auto) (0-3) /hpf Urine Bacteria (<OCC) 04/14/18 04/14/18 04/14/18 Range/Units 22:09 22:09 17:49 WBC 18.6 H (4.8-10.8) K/uL RBC 5.20 (4.40-5.90) Mil/uL Hgb 16.1 (12.0-18.0) g/dL Hct 47.6 (35.0-51.0) % MCV 91.6 (80.0-94.0) fL MCH 31.0 (27.0-31.0) pg MCHC 33.8 (33.0-37.0) g/dL RDW 12.9 (11.5-14.5) % Plt Count 202 (130-400) K/uL MPV 7.7 (7.2-11.7) fL Neut % (Auto) 89.9 H (50.0-75.0) % Lymph % (Auto) 3.4 L (20.0-40.0) % [place] % (Auto) 5.6 (0.0-10.0) % Eos % (Auto) 0.8 (0.0-4.0) % Baso % (Auto) 0.3 (0.0-2.0) % Neut # (Auto) 16.7 H (1.8-7.0) K/uL Lymph # (Auto) 0.6 L (1.0-4.3) K/uL [place] # (Auto) 1.0 H (0.0-0.8) K/uL Eos # (Auto) 0.2 (0.0-0.7) K/uL Baso # (Auto) 0.1 (0.0-0.2) K/uL Neutrophils % (Manual) 85 H (50-75) % Band Neutrophils % 5 H (0-2) % Lymphocytes % (Manual) 3 L (20-40) % Reactive Lymphs % Monocytes % (Manual) 7 (0-10) % Eosinophils % (Manual) (0-4) % Hypersegmented Polys Present Smudge Cells Present Platelet Estimate Normal (NORMAL) Large Platelets Present RBC Morphology Polychromasia Poikilocytosis (manual Slight Anisocytosis (manual) Slight Microcytosis (manual) Slight Spherocytes PT 13.3 H (9.7-12.2) SECONDS INR 1.2 APTT 30 (21-34) SECONDS Puncture Site pCO2 (35-45) mm/Hg pO2 (80-100) mm/Hg HCO3 (21-28) mmol/L ABG pH (7.35-7.45) ABG Total CO2 (22-28) mmol/L ABG O2 Saturation (95-98) % ABG Base Excess (-2.0-3.0) mmol/L Jose Test ABG Potassium (3.6-5.2) mmol/L A-a O2 Difference mm/Hg Respiratory Index Glucose (75-110) mg/dl Lactate (0.7-2.1) mmol/L Vent Mode Mechanical Rate FiO2 % Tidal Volume PEEP Crit Value Called To Crit Value Called By Crit Value Read Back Blood Gas Notified Time Sodium (132-148) mmol/L Potassium (3.6-5.2) mmol/L Chloride (98-107) mmol/L Carbon Dioxide (22-30) mmol/L Anion Gap (10-20) BUN (9-20) mg/dL Creatinine (0.8-1.5) mg/dL Est GFR ( Amer) Est GFR (Non-Af Amer) POC Glucose (mg/dL) 120 H (65-110) mg/dL Random Glucose (75-110) mg/dL Hemoglobin A1c (4.2-6.5) % Calcium (8.6-10.4) mg/dl Phosphorus (2.5-4.5) mg/dL Magnesium (1.6-2.3) mg/dL Total Bilirubin (0.2-1.3) mg/dL AST (17-59) U/L ALT (21-72) U/L Alkaline Phosphatase (38-126) U/L Total Protein (6.3-8.3) g/dL Albumin (3.5-5.0) g/dL Globulin (2.2-3.9) gm/dL Albumin/Globulin Ratio (1.0-2.1) Arterial Blood Potassium (3.6-5.2) mmol/L Urine Color (YELLOW) Urine Clarity (Clear) Urine pH (5.0-8.0) Ur Specific [place] (1.003-1.030) Urine Protein (NEGATIVE) mg/dL Urine Glucose (UA) (Normal) mg/dL Urine Ketones (NEGATIVE) mg/dL Urine Blood (NEGATIVE) Urine Nitrate (NEGATIVE) Urine Bilirubin (NEGATIVE) Urine Urobilinogen (0.2-1.0) mg/dL Ur Leukocyte Esterase (Negative) Ezra/uL Urine WBC (Auto) (0-5) /hpf Urine RBC (Auto) (0-3) /hpf Urine Bacteria (<OCC) 04/14/18 04/14/18 04/14/18 Range/Units 16:51 16:51 16:51 WBC (4.8-10.8) K/uL RBC (4.40-5.90) Mil/uL Hgb (12.0-18.0) g/dL Hct (35.0-51.0) % MCV (80.0-94.0) fL MCH (27.0-31.0) pg MCHC (33.0-37.0) g/dL RDW (11.5-14.5) % Plt Count (130-400) K/uL MPV (7.2-11.7) fL Neut % (Auto) (50.0-75.0) % Lymph % (Auto) (20.0-40.0) % [place] % (Auto) (0.0-10.0) % Eos % (Auto) (0.0-4.0) % Baso % (Auto) (0.0-2.0) % Neut # (Auto) (1.8-7.0) K/uL Lymph # (Auto) (1.0-4.3) K/uL [place] # (Auto) (0.0-0.8) K/uL Eos # (Auto) (0.0-0.7) K/uL Baso # (Auto) (0.0-0.2) K/uL Neutrophils % (Manual) (50-75) % Band Neutrophils % (0-2) % Lymphocytes % (Manual) (20-40) % Reactive Lymphs % Monocytes % (Manual) (0-10) % Eosinophils % (Manual) (0-4) % Hypersegmented Polys Smudge Cells Platelet Estimate (NORMAL) Large Platelets RBC Morphology Polychromasia Poikilocytosis (manual Anisocytosis (manual) Microcytosis (manual) Spherocytes PT 12.9 H (9.7-12.2) SECONDS INR 1.2 APTT 30 (21-34) SECONDS Puncture Site pCO2 (35-45) mm/Hg pO2 (80-100) mm/Hg HCO3 (21-28) mmol/L ABG pH (7.35-7.45) ABG Total CO2 (22-28) mmol/L ABG O2 Saturation (95-98) % ABG Base Excess (-2.0-3.0) mmol/L Jose Test ABG Potassium (3.6-5.2) mmol/L A-a O2 Difference mm/Hg Respiratory Index Glucose (75-110) mg/dl Lactate (0.7-2.1) mmol/L Vent Mode Mechanical Rate FiO2 % Tidal Volume PEEP Crit Value Called To Crit Value Called By Crit Value Read Back Blood Gas Notified Time Sodium 135 (132-148) mmol/L Potassium 3.6 (3.6-5.2) mmol/L Chloride 102 (98-107) mmol/L Carbon Dioxide 24 (22-30) mmol/L Anion Gap 13 (10-20) BUN 16 (9-20) mg/dL Creatinine 0.8 (0.8-1.5) mg/dL Est GFR ( Amer) > 60 Est GFR (Non-Af Amer) > 60 POC Glucose (mg/dL) (65-110) mg/dL Random Glucose 163 H (75-110) mg/dL Hemoglobin A1c (4.2-6.5) % Calcium 7.7 L (8.6-10.4) mg/dl Phosphorus 2.2 L (2.5-4.5) mg/dL Magnesium 1.7 (1.6-2.3) mg/dL Total Bilirubin 1.4 H (0.2-1.3) mg/dL AST 144 H (17-59) U/L ALT 280 H (21-72) U/L Alkaline Phosphatase 81 (38-126) U/L Total Protein 7.2 (6.3-8.3) g/dL Albumin 4.3 (3.5-5.0) g/dL Globulin 2.8 (2.2-3.9) gm/dL Albumin/Globulin Ratio 1.5 (1.0-2.1) Arterial Blood Potassium (3.6-5.2) mmol/L Urine Color Yellow (YELLOW) Urine Clarity Clear (Clear) Urine pH 5.0 (5.0-8.0) Ur Specific [place] 1.012 (1.003-1.030) Urine Protein Negative (NEGATIVE) mg/dL Urine Glucose (UA) 2+ H (Normal) mg/dL Urine Ketones Negative (NEGATIVE) mg/dL Urine Blood 3+ H (NEGATIVE) Urine Nitrate Negative (NEGATIVE) Urine Bilirubin Negative (NEGATIVE) Urine Urobilinogen Normal (0.2-1.0) mg/dL Ur Leukocyte Esterase Neg (Negative) Ezra/uL Urine WBC (Auto) 3 (0-5) /hpf Urine RBC (Auto) 380 H (0-3) /hpf Urine Bacteria Rare (<OCC) 04/14/18 Range/Units 16:51 WBC 16.9 H (4.8-10.8) K/uL RBC 5.62 (4.40-5.90) Mil/uL Hgb 17.2 (12.0-18.0) g/dL Hct 51.7 H (35.0-51.0) % MCV 92.0 (80.0-94.0) fL MCH 30.6 (27.0-31.0) pg MCHC 33.2 (33.0-37.0) g/dL RDW 13.1 (11.5-14.5) % Plt Count 219 (130-400) K/uL MPV 7.7 (7.2-11.7) fL Neut % (Auto) 91.5 H (50.0-75.0) % Lymph % (Auto) 2.6 L (20.0-40.0) % [place] % (Auto) 5.6 (0.0-10.0) % Eos % (Auto) 0.2 (0.0-4.0) % Baso % (Auto) 0.1 (0.0-2.0) % Neut # (Auto) 15.5 H (1.8-7.0) K/uL Lymph # (Auto) 0.4 L (1.0-4.3) K/uL [place] # (Auto) 0.9 H (0.0-0.8) K/uL Eos # (Auto) 0.0 (0.0-0.7) K/uL Baso # (Auto) 0.0 (0.0-0.2) K/uL Neutrophils % (Manual) 87 H (50-75) % Band Neutrophils % 6 H (0-2) % Lymphocytes % (Manual) 4 L (20-40) % Reactive Lymphs % Monocytes % (Manual) 3 (0-10) % Eosinophils % (Manual) (0-4) % Hypersegmented Polys Present Smudge Cells Present Platelet Estimate Normal (NORMAL) Large Platelets Present RBC Morphology Polychromasia Slight Poikilocytosis (manual Slight Anisocytosis (manual) Slight Microcytosis (manual) Slight Spherocytes Slight PT (9.7-12.2) SECONDS INR APTT (21-34) SECONDS Puncture Site pCO2 (35-45) mm/Hg pO2 (80-100) mm/Hg HCO3 (21-28) mmol/L ABG pH (7.35-7.45) ABG Total CO2 (22-28) mmol/L ABG O2 Saturation (95-98) % ABG Base Excess (-2.0-3.0) mmol/L Jose Test ABG Potassium (3.6-5.2) mmol/L A-a O2 Difference mm/Hg Respiratory Index Glucose (75-110) mg/dl Lactate (0.7-2.1) mmol/L Vent Mode Mechanical Rate FiO2 % Tidal Volume PEEP Crit Value Called To Crit Value Called By Crit Value Read Back Blood Gas Notified Time Sodium (132-148) mmol/L Potassium (3.6-5.2) mmol/L Chloride (98-107) mmol/L Carbon Dioxide (22-30) mmol/L Anion Gap (10-20) BUN (9-20) mg/dL Creatinine (0.8-1.5) mg/dL Est GFR ( Amer) Est GFR (Non-Af Amer) POC Glucose (mg/dL) (65-110) mg/dL Random Glucose (75-110) mg/dL Hemoglobin A1c (4.2-6.5) % Calcium (8.6-10.4) mg/dl Phosphorus (2.5-4.5) mg/dL Magnesium (1.6-2.3) mg/dL Total Bilirubin (0.2-1.3) mg/dL AST (17-59) U/L ALT (21-72) U/L Alkaline Phosphatase (38-126) U/L Total Protein (6.3-8.3) g/dL Albumin (3.5-5.0) g/dL Globulin (2.2-3.9) gm/dL Albumin/Globulin Ratio (1.0-2.1) Arterial Blood Potassium (3.6-5.2) mmol/L Urine Color (YELLOW) Urine Clarity (Clear) Urine pH (5.0-8.0) Ur Specific [place] (1.003-1.030) Urine Protein (NEGATIVE) mg/dL Urine Glucose (UA) (Normal) mg/dL Urine Ketones (NEGATIVE) mg/dL Urine Blood (NEGATIVE) Urine Nitrate (NEGATIVE) Urine Bilirubin (NEGATIVE) Urine Urobilinogen (0.2-1.0) mg/dL Ur Leukocyte Esterase (Negative) Ezra/uL Urine WBC (Auto) (0-5) /hpf Urine RBC (Auto) (0-3) /hpf Urine Bacteria (<OCC) Laboratory Results - last 24 hr 04/14/18 04/14/18 04/14/18 16:51 16:51 16:51 WBC 16.9 H RBC 5.62 Hgb 17.2 Hct 51.7 H MCV 92.0 MCH 30.6 MCHC 33.2 RDW 13.1 Plt Count 219 MPV 7.7 Neut % (Auto) 91.5 H Lymph % (Auto) 2.6 L [place] % (Auto) 5.6 Eos % (Auto) 0.2 Baso % (Auto) 0.1 Neut # (Auto) 15.5 H Lymph # (Auto) 0.4 L [place] # (Auto) 0.9 H Eos # (Auto) 0.0 Baso # (Auto) 0.0 Neutrophils % (Manual) 87 H Band Neutrophils % 6 H Lymphocytes % (Manual) 4 L Reactive Lymphs % Monocytes % (Manual) 3 Eosinophils % (Manual) Hypersegmented Polys Present Smudge Cells Present Platelet Estimate Normal Large Platelets Present RBC Morphology Polychromasia Slight Poikilocytosis (manual Slight Anisocytosis (manual) Slight Microcytosis (manual) Slight Spherocytes Slight PT 12.9 H INR 1.2 APTT 30 Puncture Site pCO2 pO2 HCO3 ABG pH ABG Total CO2 ABG O2 Saturation ABG Base Excess Jose Test ABG Potassium A-a O2 Difference Respiratory Index Glucose Lactate Vent Mode Mechanical Rate FiO2 Tidal Volume PEEP Crit Value Called To Crit Value Called By Crit Value Read Back Blood Gas Notified Time Sodium 135 Potassium 3.6 Chloride 102 Carbon Dioxide 24 Anion Gap 13 BUN 16 Creatinine 0.8 Est GFR ( Amer) > 60 Est GFR (Non-Af Amer) > 60 POC Glucose (mg/dL) Random Glucose 163 H Hemoglobin A1c Calcium 7.7 L Phosphorus 2.2 L Magnesium 1.7 Total Bilirubin 1.4 H AST 144 H ALT 280 H Alkaline Phosphatase 81 Total Protein 7.2 Albumin 4.3 Globulin 2.8 Albumin/Globulin Ratio 1.5 Arterial Blood Potassium Urine Color Urine Clarity Urine pH Ur Specific [place] Urine Protein Urine Glucose (UA) Urine Ketones Urine Blood Urine Nitrate Urine Bilirubin Urine Urobilinogen Ur Leukocyte Esterase Urine WBC (Auto) Urine RBC (Auto) Urine Bacteria 04/14/18 04/14/18 04/14/18 16:51 17:49 22:09 WBC 18.6 H RBC 5.20 Hgb 16.1 Hct 47.6 MCV 91.6 MCH 31.0 MCHC 33.8 RDW 12.9 Plt Count 202 MPV 7.7 Neut % (Auto) 89.9 H Lymph % (Auto) 3.4 L [place] % (Auto) 5.6 Eos % (Auto) 0.8 Baso % (Auto) 0.3 Neut # (Auto) 16.7 H Lymph # (Auto) 0.6 L [place] # (Auto) 1.0 H Eos # (Auto) 0.2 Baso # (Auto) 0.1 Neutrophils % (Manual) 85 H Band Neutrophils % 5 H Lymphocytes % (Manual) 3 L Reactive Lymphs % Monocytes % (Manual) 7 Eosinophils % (Manual) Hypersegmented Polys Present Smudge Cells Present Platelet Estimate Normal Large Platelets Present RBC Morphology Polychromasia Poikilocytosis (manual Slight Anisocytosis (manual) Slight Microcytosis (manual) Slight Spherocytes PT INR APTT Puncture Site pCO2 pO2 HCO3 ABG pH ABG Total CO2 ABG O2 Saturation ABG Base Excess Jose Test ABG Potassium A-a O2 Difference Respiratory Index Glucose Lactate Vent Mode Mechanical Rate FiO2 Tidal Volume PEEP Crit Value Called To Crit Value Called By Crit Value Read Back Blood Gas Notified Time Sodium Potassium Chloride Carbon Dioxide Anion Gap BUN Creatinine Est GFR ( Amer) Est GFR (Non-Af Amer) POC Glucose (mg/dL) 120 H Random Glucose Hemoglobin A1c Calcium Phosphorus Magnesium Total Bilirubin AST ALT Alkaline Phosphatase Total Protein Albumin Globulin Albumin/Globulin Ratio Arterial Blood Potassium Urine Color Yellow Urine Clarity Clear Urine pH 5.0 Ur Specific [place] 1.012 Urine Protein Negative Urine Glucose (UA) 2+ H Urine Ketones Negative Urine Blood 3+ H Urine Nitrate Negative Urine Bilirubin Negative Urine Urobilinogen Normal Ur Leukocyte Esterase Neg Urine WBC (Auto) 3 Urine RBC (Auto) 380 H Urine Bacteria Rare 04/14/18 04/14/18 04/15/18 22:09 22:09 00:01 WBC RBC Hgb Hct MCV MCH MCHC RDW Plt Count MPV Neut % (Auto) Lymph % (Auto) [place] % (Auto) Eos % (Auto) Baso % (Auto) Neut # (Auto) Lymph # (Auto) [place] # (Auto) Eos # (Auto) Baso # (Auto) Neutrophils % (Manual) Band Neutrophils % Lymphocytes % (Manual) Reactive Lymphs % Monocytes % (Manual) Eosinophils % (Manual) Hypersegmented Polys Smudge Cells Platelet Estimate Large Platelets RBC Morphology Polychromasia Poikilocytosis (manual Anisocytosis (manual) Microcytosis (manual) Spherocytes PT 13.3 H INR 1.2 APTT 30 Puncture Site pCO2 pO2 HCO3 ABG pH ABG Total CO2 ABG O2 Saturation ABG Base Excess Jose Test ABG Potassium A-a O2 Difference Respiratory Index Glucose Lactate Vent Mode Mechanical Rate FiO2 Tidal Volume PEEP Crit Value Called To Crit Value Called By Crit Value Read Back Blood Gas Notified Time Sodium 139 Potassium 4.3 Chloride 106 Carbon Dioxide 25 Anion Gap 12 BUN 14 Creatinine 0.7 L Est GFR ( Amer) > 60 Est GFR (Non-Af Amer) > 60 POC Glucose (mg/dL) 126 H Random Glucose 135 H Hemoglobin A1c Calcium 7.5 L Phosphorus 2.2 L Magnesium 1.9 Total Bilirubin AST ALT Alkaline Phosphatase Total Protein Albumin Globulin Albumin/Globulin Ratio Arterial Blood Potassium Urine Color Urine Clarity Urine pH Ur Specific [place] Urine Protein Urine Glucose (UA) Urine Ketones Urine Blood Urine Nitrate Urine Bilirubin Urine Urobilinogen Ur Leukocyte Esterase Urine WBC (Auto) Urine RBC (Auto) Urine Bacteria 04/15/18 04/15/18 04/15/18 05:24 05:50 06:14 WBC 17.2 H RBC 5.20 Hgb 16.2 Hct 48.0 MCV 92.4 MCH 31.1 H MCHC 33.7 RDW 12.9 Plt Count 184 MPV 8.2 Neut % (Auto) 87.5 H Lymph % (Auto) 5.1 L [place] % (Auto) 5.5 Eos % (Auto) 1.8 Baso % (Auto) 0.1 Neut # (Auto) 15.0 H Lymph # (Auto) 0.9 L [place] # (Auto) 0.9 H Eos # (Auto) 0.3 Baso # (Auto) 0.0 Neutrophils % (Manual) 83 H Band Neutrophils % 3 H Lymphocytes % (Manual) 6 L Reactive Lymphs % TEST NOT PERFORMED Monocytes % (Manual) 6 Eosinophils % (Manual) 2 Hypersegmented Polys Smudge Cells Platelet Estimate Normal Large Platelets RBC Morphology Normal Polychromasia Poikilocytosis (manual Anisocytosis (manual) Microcytosis (manual) Spherocytes PT INR APTT Puncture Site Rb pCO2 21 L pO2 139 H HCO3 17.9 L ABG pH 7.41 ABG Total CO2 13.9 L ABG O2 Saturation 99.5 H ABG Base Excess -9.1 L Jose Test Na ABG Potassium 1.9 L* A-a O2 Difference 263.0 Respiratory Index 1.9 Glucose 80 Lactate 0.8 Vent Mode Prvc Mechanical Rate 18 FiO2 60.0 Tidal Volume 500 PEEP 5 Crit Value Called To Jennifer norman/rn Crit Value Called By Mandie castano/rt Crit Value Read Back Y Blood Gas Notified Time 625 Sodium 151.0 H Potassium Chloride 126.0 H Carbon Dioxide Anion Gap BUN Creatinine Est GFR ( Amer) Est GFR (Non-Af Amer) POC Glucose (mg/dL) 129 H Random Glucose Hemoglobin A1c Calcium Phosphorus Magnesium Total Bilirubin AST ALT Alkaline Phosphatase Total Protein Albumin Globulin Albumin/Globulin Ratio Arterial Blood Potassium 1.9 L* Urine Color Urine Clarity Urine pH Ur Specific [place] Urine Protein Urine Glucose (UA) Urine Ketones Urine Blood Urine Nitrate Urine Bilirubin Urine Urobilinogen Ur Leukocyte Esterase Urine WBC (Auto) Urine RBC (Auto) Urine Bacteria 04/15/18 04/15/18 04/15/18 06:14 06:14 06:14 WBC RBC Hgb Hct MCV MCH MCHC RDW Plt Count MPV Neut % (Auto) Lymph % (Auto) [place] % (Auto) Eos % (Auto) Baso % (Auto) Neut # (Auto) Lymph # (Auto) [place] # (Auto) Eos # (Auto) Baso # (Auto) Neutrophils % (Manual) Band Neutrophils % Lymphocytes % (Manual) Reactive Lymphs % Monocytes % (Manual) Eosinophils % (Manual) Hypersegmented Polys Smudge Cells Platelet Estimate Large Platelets RBC Morphology Polychromasia Poikilocytosis (manual Anisocytosis (manual) Microcytosis (manual) Spherocytes PT 13.0 H INR 1.2 APTT 28 Puncture Site pCO2 pO2 HCO3 ABG pH ABG Total CO2 ABG O2 Saturation ABG Base Excess Jose Test ABG Potassium A-a O2 Difference Respiratory Index Glucose Lactate Vent Mode Mechanical Rate FiO2 Tidal Volume PEEP Crit Value Called To Crit Value Called By Crit Value Read Back Blood Gas Notified Time Sodium 137 Potassium 3.9 Chloride 107 Carbon Dioxide 24 Anion Gap 10 BUN 13 Creatinine 0.6 L Est GFR ( Amer) > 60 Est GFR (Non-Af Amer) > 60 POC Glucose (mg/dL) Random Glucose 128 H Hemoglobin A1c 5.8 Calcium 8.3 L Phosphorus 1.7 L Magnesium 2.2 Total Bilirubin 0.9 AST 117 H ALT 207 H D Alkaline Phosphatase 78 Total Protein 6.4 Albumin 3.8 Globulin 2.6 Albumin/Globulin Ratio 1.4 Arterial Blood Potassium Urine Color Urine Clarity Urine pH Ur Specific [place] Urine Protein Urine Glucose (UA) Urine Ketones Urine Blood Urine Nitrate Urine Bilirubin Urine Urobilinogen Ur Leukocyte Esterase Urine WBC (Auto) Urine RBC (Auto) Urine Bacteria 04/15/18 11:15 WBC RBC Hgb Hct MCV MCH MCHC RDW Plt Count MPV Neut % (Auto) Lymph % (Auto) [place] % (Auto) Eos % (Auto) Baso % (Auto) Neut # (Auto) Lymph # (Auto) [place] # (Auto) Eos # (Auto) Baso # (Auto) Neutrophils % (Manual) Band Neutrophils % Lymphocytes % (Manual) Reactive Lymphs % Monocytes % (Manual) Eosinophils % (Manual) Hypersegmented Polys Smudge Cells Platelet Estimate Large Platelets RBC Morphology Polychromasia Poikilocytosis (manual Anisocytosis (manual) Microcytosis (manual) Spherocytes PT INR APTT Puncture Site pCO2 pO2 HCO3 ABG pH ABG Total CO2 ABG O2 Saturation ABG Base Excess Jose Test ABG Potassium A-a O2 Difference Respiratory Index Glucose Lactate Vent Mode Mechanical Rate FiO2 Tidal Volume PEEP Crit Value Called To Crit Value Called By Crit Value Read Back Blood Gas Notified Time Sodium Potassium Chloride Carbon Dioxide Anion Gap BUN Creatinine Est GFR ( Amer) Est GFR (Non-Af Amer) POC Glucose (mg/dL) 121 H Random Glucose Hemoglobin A1c Calcium Phosphorus Magnesium Total Bilirubin AST ALT Alkaline Phosphatase Total Protein Albumin Globulin Albumin/Globulin Ratio Arterial Blood Potassium Urine Color Urine Clarity Urine pH Ur Specific [place] Urine Protein Urine Glucose (UA) Urine Ketones Urine Blood Urine Nitrate Urine Bilirubin Urine Urobilinogen Ur Leukocyte Esterase Urine WBC (Auto) Urine RBC (Auto) Urine Bacteria Radiology Impressions: Radiology Impressions Duplex Scan Lower Extremity Artery 04/13/18 12:15 IMPRESSION: Right: No evidence of deep or superficial vein thrombosis of the right lower extremity. Normal valve function noted of the right side. Left: No evidence of deep or superficial vein thrombosis of the left lower extremity. Normal valve function noted of the left side. Head CT 04/14/18 15:02 IMPRESSION: Little interval change in mild diffuse effacement of cortical sulci and indistinct pablo-white matter differentiation related to hypoxic-anoxic insult with the stated clinical history. Chest X-Ray 04/15/18 06:00 IMPRESSION: Interval repositioning of the nasogastric tube-currently its sidehole appears satisfactory in position-the tip probably courses retrograde towards the gastric lateral upper body. Endotracheal tube as above. Minimal pulmonary venous congestion [id number] Head CT 04/15/18 12:33 IMPRESSION: Extensive diffuse homogeneous appearance of the brain parenchyma with loss of the corticomedullary distinction and on diminution of cerebral sulci. Findings consistent with sequela diffusehypoxia. EKG/Cardiology Studies: Cardiology / EKG Studies 04/15/18 12:30 EKG [ELECTROCARDIOGRAM] DAILY Comment: Mode Of Transportation: Reason For Exam: code heart vasospasm 04/16/18 12:30 EKG [ELECTROCARDIOGRAM] DAILY Comment: Mode Of Transportation: Reason For Exam: code heart vasospasm 04/17/18 12:30 EKG [ELECTROCARDIOGRAM] DAILY Comment: Mode Of Transportation: Reason For Exam: code heart vasospasm Critical Care Progress Note - Nutrition Nutrition: Nutrition Category Date Time Status NPO Diet [DIET] Diets 04/13/18 Dinner Active Attending/Attestation - Attestation I have personally seen and examined this patient.: Yes I have fully participated in the care of the patient.: Yes I have reviewed all pertinent clinical information: Yes Notes (Text): 04/15/18 14:53 Patient seen and examined in the intensive care unit. Status post Therapeutic hypothermia EEG consistent with status epilepticus Repeat CAT scan of head Antiepileptics by neurology Continue present treatment <Edgar Luna - Last Filed: 04/15/18 20:49> CCU Subjective - Physician Review Subjective (Free Text): Critical care progress note for Dr. Hussein Patient seen and examined at bedside. No acute events overnight. Video EEG done today, called by neurology, patient is status epilepticus. Patient placed on vimpat & depakote. Unable to obtain ROS due to intubation. Point person for family is patient sonJer, contact # [phone]. 04/15/18 20:39 CCU Objective - Vital Signs / Intake & Output Vital Signs (Last 4 hours): Vital Signs Pulse Resp BP Pulse Ox 04/15/18 12:18 136 H 20 117/64 100 04/15/18 12:00 135 H 20 100 04/15/18 11:18 132 H 19 122/77 100 04/15/18 11:00 131 H 20 100 Intake and Output (Last 8hrs): Intake & Output 04/14/18 04/15/18 04/15/18 22:59 06:59 14:59 Intake Total 1927.8 1434.3 756.4 Output Total 3275 910 470 Balance -1347.2 524.3 286.4 Weight 215 lb 2 oz Intake: IV 164.6 250 Intake, IV Amount 1763.2 1184.3 756.4 Left Antecubital 662.5 650 436 Left Distal Port 251.5 Antecubital Left Wrist 675 375 150 R femoral venous sheath 13.8 R venous sheath 16 R venous sheath proximal 96.4 99.3 110.4 port Right AC Y port 42.5 44.0 44.0 Right Antecubital 21.5 16 Oral 0 Output: Gastric Amount 250 50 60 Stomach 250 50 60 Urine 3025 860 410 Urethral (Campuzano) 3025 860 410 Emesis 0 Oral Regurgitation 0 Other: # Bowel Movements 0 0 0 - Physical Exam Head: Positive for: Atraumatic, Normocephalic Mouth: Positive for: Moist Mucous Membranes Respiratory/Chest: Positive for: Other (on ventilator). Negative for: Respiratory Distress, Accessory Muscle Use, Wheezes, Rhonchi Cardiovascular: Positive for: Normal S1, S2 Abdomen: Negative for: Tenderness, Distention Upper Extremity: Positive for: Normal Inspection. Negative for: Edema Lower Extremity: Positive for: Normal Inspection. Negative for: Edema Skin: Positive for: Warm, Dry, Rashes Psychiatric: Positive for: Other (intubated) - Medications Active Medications: Active Medications Generic Name Dose Route Start Last Admin Trade Name Freq PRN Reason Stop Dose Admin Heparin Sodium (Porcine) 5,000 units 04/14/18 14:00 04/15/18 13:43 Heparin SC 5,000 units Q8 ROBERT Administration Midazolam HCl 100 mg/ Dextrose 100 mls @ 2 mls/hr 04/13/18 11:15 04/14/18 12:36 IV Not Given .Q24H ROBERT Protocol 0.02 MG/KG/HR Cisatracurium Besylate 100 mg/ 250 mls @ 41.03 mls/hr 04/13/18 14:00 04/15/18 05:11 Dextrose IV 1 mcg/kg/min .Q6H6M PRN 13.68 mls/hr Seizure activity Administration Protocol 3 MCG/KG/MIN Piperacillin Sod/Tazobactam 100 mls @ 200 mls/hr 04/13/18 14:15 04/15/18 14:34 Sod 3.375 gm/ Sodium Chloride IVPB 200 mls/hr Q8H ROBERT Administration Protocol Levetiracetam 1,500 mg/ 115 mls @ 420 mls/hr 04/13/18 14:30 04/15/18 14:33 Dextrose IVPB 420 mls/hr Q12H ROBERT Administration Vancomycin/Sodium Chloride 1 gm in 200 mls @ 67 mls/hr 04/13/18 16:00 04/15/18 03:48 Vancomycin 1 Gm/Ns 200 Ml IVPB 04/18/18 16:01 67 mls/hr Q12H ROBERT Administration Protocol Propofol 1,000 mg in 100 mls @ 2.735 mls/hr 04/13/18 22:57 04/15/18 03:46 Diprivan IV 10 mcg/kg/min .Q24H PRN 5.47 mls/hr TITRATE PER MD ORDER Administration Protocol 5 MCG/KG/MIN Sodium Chloride 1,000 mls @ 50 mls/hr 04/14/18 10:36 04/15/18 07:39 Sodium Chloride 0.9% IV Not Given .Q20H ROBERT Potassium Phosphate 15 mmole/ 255 mls @ 42.5 mls/hr 04/15/18 10:45 04/15/18 11:32 Sodium Chloride IVPB 04/15/18 22:44 42.5 mls/hr Q6H ROBERT Administration Valproate Sodium 1,000 mg/ 110 mls @ 100 mls/hr 04/15/18 18:00 Sodium Chloride IVPB Q12H ROBERT Lacosamide 100 mg/ Sodium 60 mls @ 100 mls/hr 04/15/18 20:00 Chloride IVPB Q12H ROBERT Insulin Aspart 0 unit 04/14/18 12:00 04/15/18 12:42 Novolog SC Not Given Q6 [facility] Protocol Levothyroxine Sodium 125 mcg 04/14/18 12:30 04/15/18 07:39 Synthroid PO Not Given DAILY@0630 [facility] Pantoprazole Sodium 40 mg 04/14/18 10:00 04/15/18 10:41 Protonix Inj IVP 40 mg DAILY ROBERT Administration - Patient Studies Lab Studies: Microbiology Studies 04/13/18 14:40 Blood Culture - Preliminary Blood NO GROWTH AFTER 48 HOURS 04/13/18 14:30 Blood Culture - Preliminary Blood NO GROWTH AFTER 48 HOURS 04/14/18 16:51 Urine Culture - Final Urine,Campuzano No Growth (<1,000 CFU/ML) 04/13/18 14:44 MRSA Culture (Admit) - Final Nose MRSA NOT DETECTED Lab Studies 04/15/18 04/15/18 04/15/18 Range/Units 11:15 06:14 06:14 WBC (4.8-10.8) K/uL RBC (4.40-5.90) Mil/uL Hgb (12.0-18.0) g/dL Hct (35.0-51.0) % MCV (80.0-94.0) fL MCH (27.0-31.0) pg MCHC (33.0-37.0) g/dL RDW (11.5-14.5) % Plt Count (130-400) K/uL MPV (7.2-11.7) fL Neut % (Auto) (50.0-75.0) % Lymph % (Auto) (20.0-40.0) % [place] % (Auto) (0.0-10.0) % Eos % (Auto) (0.0-4.0) % Baso % (Auto) (0.0-2.0) % Neut # (Auto) (1.8-7.0) K/uL Lymph # (Auto) (1.0-4.3) K/uL [place] # (Auto) (0.0-0.8) K/uL Eos # (Auto) (0.0-0.7) K/uL Baso # (Auto) (0.0-0.2) K/uL Neutrophils % (Manual) (50-75) % Band Neutrophils % (0-2) % Lymphocytes % (Manual) (20-40) % Reactive Lymphs % Monocytes % (Manual) (0-10) % Eosinophils % (Manual) (0-4) % Hypersegmented Polys Smudge Cells Platelet Estimate (NORMAL) Large Platelets RBC Morphology Polychromasia Poikilocytosis (manual Anisocytosis (manual) Microcytosis (manual) Spherocytes PT 13.0 H (9.7-12.2) SECONDS INR 1.2 APTT 28 (21-34) SECONDS Puncture Site pCO2 (35-45) mm/Hg pO2 (80-100) mm/Hg HCO3 (21-28) mmol/L ABG pH (7.35-7.45) ABG Total CO2 (22-28) mmol/L ABG O2 Saturation (95-98) % ABG Base Excess (-2.0-3.0) mmol/L Jose Test ABG Potassium (3.6-5.2) mmol/L A-a O2 Difference mm/Hg Respiratory Index Glucose (75-110) mg/dl Lactate (0.7-2.1) mmol/L Vent Mode Mechanical Rate FiO2 % Tidal Volume PEEP Crit Value Called To Crit Value Called By Crit Value Read Back Blood Gas Notified Time Sodium 137 (132-148) mmol/L Potassium 3.9 (3.6-5.2) mmol/L Chloride 107 (98-107) mmol/L Carbon Dioxide 24 (22-30) mmol/L Anion Gap 10 (10-20) BUN 13 (9-20) mg/dL Creatinine 0.6 L (0.8-1.5) mg/dL Est GFR ( Amer) > 60 Est GFR (Non-Af Amer) > 60 POC Glucose (mg/dL) 121 H (65-110) mg/dL Random Glucose 128 H (75-110) mg/dL Hemoglobin A1c (4.2-6.5) % Calcium 8.3 L (8.6-10.4) mg/dl Phosphorus 1.7 L (2.5-4.5) mg/dL Magnesium 2.2 (1.6-2.3) mg/dL Total Bilirubin 0.9 (0.2-1.3) mg/dL AST 117 H (17-59) U/L ALT 207 H D (21-72) U/L Alkaline Phosphatase 78 (38-126) U/L Total Protein 6.4 (6.3-8.3) g/dL Albumin 3.8 (3.5-5.0) g/dL Globulin 2.6 (2.2-3.9) gm/dL Albumin/Globulin Ratio 1.4 (1.0-2.1) Arterial Blood Potassium (3.6-5.2) mmol/L Urine Color (YELLOW) Urine Clarity (Clear) Urine pH (5.0-8.0) Ur Specific [place] (1.003-1.030) Urine Protein (NEGATIVE) mg/dL Urine Glucose (UA) (Normal) mg/dL Urine Ketones (NEGATIVE) mg/dL Urine Blood (NEGATIVE) Urine Nitrate (NEGATIVE) Urine Bilirubin (NEGATIVE) Urine Urobilinogen (0.2-1.0) mg/dL Ur Leukocyte Esterase (Negative) Ezra/uL Urine WBC (Auto) (0-5) /hpf Urine RBC (Auto) (0-3) /hpf Urine Bacteria (<OCC) 04/15/18 04/15/18 04/15/18 Range/Units 06:14 06:14 05:50 WBC 17.2 H (4.8-10.8) K/uL RBC 5.20 (4.40-5.90) Mil/uL Hgb 16.2 (12.0-18.0) g/dL Hct 48.0 (35.0-51.0) % MCV 92.4 (80.0-94.0) fL MCH 31.1 H (27.0-31.0) pg MCHC 33.7 (33.0-37.0) g/dL RDW 12.9 (11.5-14.5) % Plt Count 184 (130-400) K/uL MPV 8.2 (7.2-11.7) fL Neut % (Auto) 87.5 H (50.0-75.0) % Lymph % (Auto) 5.1 L (20.0-40.0) % [place] % (Auto) 5.5 (0.0-10.0) % Eos % (Auto) 1.8 (0.0-4.0) % Baso % (Auto) 0.1 (0.0-2.0) % Neut # (Auto) 15.0 H (1.8-7.0) K/uL Lymph # (Auto) 0.9 L (1.0-4.3) K/uL [place] # (Auto) 0.9 H (0.0-0.8) K/uL Eos # (Auto) 0.3 (0.0-0.7) K/uL Baso # (Auto) 0.0 (0.0-0.2) K/uL Neutrophils % (Manual) 83 H (50-75) % Band Neutrophils % 3 H (0-2) % Lymphocytes % (Manual) 6 L (20-40) % Reactive Lymphs % TEST NOT PERFORMED Monocytes % (Manual) 6 (0-10) % Eosinophils % (Manual) 2 (0-4) % Hypersegmented Polys Smudge Cells Platelet Estimate Normal (NORMAL) Large Platelets RBC Morphology Normal Polychromasia Poikilocytosis (manual Anisocytosis (manual) Microcytosis (manual) Spherocytes PT (9.7-12.2) SECONDS INR APTT (21-34) SECONDS Puncture Site pCO2 (35-45) mm/Hg pO2 (80-100) mm/Hg HCO3 (21-28) mmol/L ABG pH (7.35-7.45) ABG Total CO2 (22-28) mmol/L ABG O2 Saturation (95-98) % ABG Base Excess (-2.0-3.0) mmol/L Jose Test ABG Potassium (3.6-5.2) mmol/L A-a O2 Difference mm/Hg Respiratory Index Glucose (75-110) mg/dl Lactate (0.7-2.1) mmol/L Vent Mode Mechanical Rate FiO2 % Tidal Volume PEEP Crit Value Called To Crit Value Called By Crit Value Read Back Blood Gas Notified Time Sodium (132-148) mmol/L Potassium (3.6-5.2) mmol/L Chloride (98-107) mmol/L Carbon Dioxide (22-30) mmol/L Anion Gap (10-20) BUN (9-20) mg/dL Creatinine (0.8-1.5) mg/dL Est GFR ( Amer) Est GFR (Non-Af Amer) POC Glucose (mg/dL) 129 H (65-110) mg/dL Random Glucose (75-110) mg/dL Hemoglobin A1c 5.8 (4.2-6.5) % Calcium (8.6-10.4) mg/dl Phosphorus (2.5-4.5) mg/dL Magnesium (1.6-2.3) mg/dL Total Bilirubin (0.2-1.3) mg/dL AST (17-59) U/L ALT (21-72) U/L Alkaline Phosphatase (38-126) U/L Total Protein (6.3-8.3) g/dL Albumin (3.5-5.0) g/dL Globulin (2.2-3.9) gm/dL Albumin/Globulin Ratio (1.0-2.1) Arterial Blood Potassium (3.6-5.2) mmol/L Urine Color (YELLOW) Urine Clarity (Clear) Urine pH (5.0-8.0) Ur Specific [place] (1.003-1.030) Urine Protein (NEGATIVE) mg/dL Urine Glucose (UA) (Normal) mg/dL Urine Ketones (NEGATIVE) mg/dL Urine Blood (NEGATIVE) Urine Nitrate (NEGATIVE) Urine Bilirubin (NEGATIVE) Urine Urobilinogen (0.2-1.0) mg/dL Ur Leukocyte Esterase (Negative) Ezra/uL Urine WBC (Auto) (0-5) /hpf Urine RBC (Auto) (0-3) /hpf Urine Bacteria (<OCC) 04/15/18 04/15/18 04/14/18 Range/Units 05:24 00:01 22:09 WBC (4.8-10.8) K/uL RBC (4.40-5.90) Mil/uL Hgb (12.0-18.0) g/dL Hct (35.0-51.0) % MCV (80.0-94.0) fL MCH (27.0-31.0) pg MCHC (33.0-37.0) g/dL RDW (11.5-14.5) % Plt Count (130-400) K/uL MPV (7.2-11.7) fL Neut % (Auto) (50.0-75.0) % Lymph % (Auto) (20.0-40.0) % [place] % (Auto) (0.0-10.0) % Eos % (Auto) (0.0-4.0) % Baso % (Auto) (0.0-2.0) % Neut # (Auto) (1.8-7.0) K/uL Lymph # (Auto) (1.0-4.3) K/uL [place] # (Auto) (0.0-0.8) K/uL Eos # (Auto) (0.0-0.7) K/uL Baso # (Auto) (0.0-0.2) K/uL Neutrophils % (Manual) (50-75) % Band Neutrophils % (0-2) % Lymphocytes % (Manual) (20-40) % Reactive Lymphs % Monocytes % (Manual) (0-10) % Eosinophils % (Manual) (0-4) % Hypersegmented Polys Smudge Cells Platelet Estimate (NORMAL) Large Platelets RBC Morphology Polychromasia Poikilocytosis (manual Anisocytosis (manual) Microcytosis (manual) Spherocytes PT (9.7-12.2) SECONDS INR APTT (21-34) SECONDS Puncture Site Rb pCO2 21 L (35-45) mm/Hg pO2 139 H (80-100) mm/Hg HCO3 17.9 L (21-28) mmol/L ABG pH 7.41 (7.35-7.45) ABG Total CO2 13.9 L (22-28) mmol/L ABG O2 Saturation 99.5 H (95-98) % ABG Base Excess -9.1 L (-2.0-3.0) mmol/L Jose Test Na ABG Potassium 1.9 L* (3.6-5.2) mmol/L A-a O2 Difference 263.0 mm/Hg Respiratory Index 1.9 Glucose 80 (75-110) mg/dl Lactate 0.8 (0.7-2.1) mmol/L Vent Mode Prvc Mechanical Rate 18 FiO2 60.0 % Tidal Volume 500 PEEP 5 Crit Value Called To Jennifer norman/rn Crit Value Called By Mandie castano/rt Crit Value Read Back Y Blood Gas Notified Time 625 Sodium 151.0 H 139 (132-148) mmol/L Potassium 4.3 (3.6-5.2) mmol/L Chloride 126.0 H 106 (98-107) mmol/L Carbon Dioxide 25 (22-30) mmol/L Anion Gap 12 (10-20) BUN 14 (9-20) mg/dL Creatinine 0.7 L (0.8-1.5) mg/dL Est GFR ( Amer) > 60 Est GFR (Non-Af Amer) > 60 POC Glucose (mg/dL) 126 H (65-110) mg/dL Random Glucose 135 H (75-110) mg/dL Hemoglobin A1c (4.2-6.5) % Calcium 7.5 L (8.6-10.4) mg/dl Phosphorus 2.2 L (2.5-4.5) mg/dL Magnesium 1.9 (1.6-2.3) mg/dL Total Bilirubin (0.2-1.3) mg/dL AST (17-59) U/L ALT (21-72) U/L Alkaline Phosphatase (38-126) U/L Total Protein (6.3-8.3) g/dL Albumin (3.5-5.0) g/dL Globulin (2.2-3.9) gm/dL Albumin/Globulin Ratio (1.0-2.1) Arterial Blood Potassium 1.9 L* (3.6-5.2) mmol/L Urine Color (YELLOW) Urine Clarity (Clear) Urine pH (5.0-8.0) Ur Specific [place] (1.003-1.030) Urine Protein (NEGATIVE) mg/dL Urine Glucose (UA) (Normal) mg/dL Urine Ketones (NEGATIVE) mg/dL Urine Blood (NEGATIVE) Urine Nitrate (NEGATIVE) Urine Bilirubin (NEGATIVE) Urine Urobilinogen (0.2-1.0) mg/dL Ur Leukocyte Esterase (Negative) Ezra/uL Urine WBC (Auto) (0-5) /hpf Urine RBC (Auto) (0-3) /hpf Urine Bacteria (<OCC) 04/14/18 04/14/18 04/14/18 Range/Units 22:09 22:09 17:49 WBC 18.6 H (4.8-10.8) K/uL RBC 5.20 (4.40-5.90) Mil/uL Hgb 16.1 (12.0-18.0) g/dL Hct 47.6 (35.0-51.0) % MCV 91.6 (80.0-94.0) fL MCH 31.0 (27.0-31.0) pg MCHC 33.8 (33.0-37.0) g/dL RDW 12.9 (11.5-14.5) % Plt Count 202 (130-400) K/uL MPV 7.7 (7.2-11.7) fL Neut % (Auto) 89.9 H (50.0-75.0) % Lymph % (Auto) 3.4 L (20.0-40.0) % [place] % (Auto) 5.6 (0.0-10.0) % Eos % (Auto) 0.8 (0.0-4.0) % Baso % (Auto) 0.3 (0.0-2.0) % Neut # (Auto) 16.7 H (1.8-7.0) K/uL Lymph # (Auto) 0.6 L (1.0-4.3) K/uL [place] # (Auto) 1.0 H (0.0-0.8) K/uL Eos # (Auto) 0.2 (0.0-0.7) K/uL Baso # (Auto) 0.1 (0.0-0.2) K/uL Neutrophils % (Manual) 85 H (50-75) % Band Neutrophils % 5 H (0-2) % Lymphocytes % (Manual) 3 L (20-40) % Reactive Lymphs % Monocytes % (Manual) 7 (0-10) % Eosinophils % (Manual) (0-4) % Hypersegmented Polys Present Smudge Cells Present Platelet Estimate Normal (NORMAL) Large Platelets Present RBC Morphology Polychromasia Poikilocytosis (manual Slight Anisocytosis (manual) Slight Microcytosis (manual) Slight Spherocytes PT 13.3 H (9.7-12.2) SECONDS INR 1.2 APTT 30 (21-34) SECONDS Puncture Site pCO2 (35-45) mm/Hg pO2 (80-100) mm/Hg HCO3 (21-28) mmol/L ABG pH (7.35-7.45) ABG Total CO2 (22-28) mmol/L ABG O2 Saturation (95-98) % ABG Base Excess (-2.0-3.0) mmol/L Jose Test ABG Potassium (3.6-5.2) mmol/L A-a O2 Difference mm/Hg Respiratory Index Glucose (75-110) mg/dl Lactate (0.7-2.1) mmol/L Vent Mode Mechanical Rate FiO2 % Tidal Volume PEEP Crit Value Called To Crit Value Called By Crit Value Read Back Blood Gas Notified Time Sodium (132-148) mmol/L Potassium (3.6-5.2) mmol/L Chloride (98-107) mmol/L Carbon Dioxide (22-30) mmol/L Anion Gap (10-20) BUN (9-20) mg/dL Creatinine (0.8-1.5) mg/dL Est GFR ( Amer) Est GFR (Non-Af Amer) POC Glucose (mg/dL) 120 H (65-110) mg/dL Random Glucose (75-110) mg/dL Hemoglobin A1c (4.2-6.5) % Calcium (8.6-10.4) mg/dl Phosphorus (2.5-4.5) mg/dL Magnesium (1.6-2.3) mg/dL Total Bilirubin (0.2-1.3) mg/dL AST (17-59) U/L ALT (21-72) U/L Alkaline Phosphatase (38-126) U/L Total Protein (6.3-8.3) g/dL Albumin (3.5-5.0) g/dL Globulin (2.2-3.9) gm/dL Albumin/Globulin Ratio (1.0-2.1) Arterial Blood Potassium (3.6-5.2) mmol/L Urine Color (YELLOW) Urine Clarity (Clear) Urine pH (5.0-8.0) Ur Specific [place] (1.003-1.030) Urine Protein (NEGATIVE) mg/dL Urine Glucose (UA) (Normal) mg/dL Urine Ketones (NEGATIVE) mg/dL Urine Blood (NEGATIVE) Urine Nitrate (NEGATIVE) Urine Bilirubin (NEGATIVE) Urine Urobilinogen (0.2-1.0) mg/dL Ur Leukocyte Esterase (Negative) Ezra/uL Urine WBC (Auto) (0-5) /hpf Urine RBC (Auto) (0-3) /hpf Urine Bacteria (<OCC) 04/14/18 04/14/18 04/14/18 Range/Units 16:51 16:51 16:51 WBC (4.8-10.8) K/uL RBC (4.40-5.90) Mil/uL Hgb (12.0-18.0) g/dL Hct (35.0-51.0) % MCV (80.0-94.0) fL MCH (27.0-31.0) pg MCHC (33.0-37.0) g/dL RDW (11.5-14.5) % Plt Count (130-400) K/uL MPV (7.2-11.7) fL Neut % (Auto) (50.0-75.0) % Lymph % (Auto) (20.0-40.0) % [place] % (Auto) (0.0-10.0) % Eos % (Auto) (0.0-4.0) % Baso % (Auto) (0.0-2.0) % Neut # (Auto) (1.8-7.0) K/uL Lymph # (Auto) (1.0-4.3) K/uL [place] # (Auto) (0.0-0.8) K/uL Eos # (Auto) (0.0-0.7) K/uL Baso # (Auto) (0.0-0.2) K/uL Neutrophils % (Manual) (50-75) % Band Neutrophils % (0-2) % Lymphocytes % (Manual) (20-40) % Reactive Lymphs % Monocytes % (Manual) (0-10) % Eosinophils % (Manual) (0-4) % Hypersegmented Polys Smudge Cells Platelet Estimate (NORMAL) Large Platelets RBC Morphology Polychromasia Poikilocytosis (manual Anisocytosis (manual) Microcytosis (manual) Spherocytes PT 12.9 H (9.7-12.2) SECONDS INR 1.2 APTT 30 (21-34) SECONDS Puncture Site pCO2 (35-45) mm/Hg pO2 (80-100) mm/Hg HCO3 (21-28) mmol/L ABG pH (7.35-7.45) ABG Total CO2 (22-28) mmol/L ABG O2 Saturation (95-98) % ABG Base Excess (-2.0-3.0) mmol/L Jose Test ABG Potassium (3.6-5.2) mmol/L A-a O2 Difference mm/Hg Respiratory Index Glucose (75-110) mg/dl Lactate (0.7-2.1) mmol/L Vent Mode Mechanical Rate FiO2 % Tidal Volume PEEP Crit Value Called To Crit Value Called By Crit Value Read Back Blood Gas Notified Time Sodium 135 (132-148) mmol/L Potassium 3.6 (3.6-5.2) mmol/L Chloride 102 (98-107) mmol/L Carbon Dioxide 24 (22-30) mmol/L Anion Gap 13 (10-20) BUN 16 (9-20) mg/dL Creatinine 0.8 (0.8-1.5) mg/dL Est GFR ( Amer) > 60 Est GFR (Non-Af Amer) > 60 POC Glucose (mg/dL) (65-110) mg/dL Random Glucose 163 H (75-110) mg/dL Hemoglobin A1c (4.2-6.5) % Calcium 7.7 L (8.6-10.4) mg/dl Phosphorus 2.2 L (2.5-4.5) mg/dL Magnesium 1.7 (1.6-2.3) mg/dL Total Bilirubin 1.4 H (0.2-1.3) mg/dL AST 144 H (17-59) U/L ALT 280 H (21-72) U/L Alkaline Phosphatase 81 (38-126) U/L Total Protein 7.2 (6.3-8.3) g/dL Albumin 4.3 (3.5-5.0) g/dL Globulin 2.8 (2.2-3.9) gm/dL Albumin/Globulin Ratio 1.5 (1.0-2.1) Arterial Blood Potassium (3.6-5.2) mmol/L Urine Color Yellow (YELLOW) Urine Clarity Clear (Clear) Urine pH 5.0 (5.0-8.0) Ur Specific [place] 1.012 (1.003-1.030) Urine Protein Negative (NEGATIVE) mg/dL Urine Glucose (UA) 2+ H (Normal) mg/dL Urine Ketones Negative (NEGATIVE) mg/dL Urine Blood 3+ H (NEGATIVE) Urine Nitrate Negative (NEGATIVE) Urine Bilirubin Negative (NEGATIVE) Urine Urobilinogen Normal (0.2-1.0) mg/dL Ur Leukocyte Esterase Neg (Negative) Ezra/uL Urine WBC (Auto) 3 (0-5) /hpf Urine RBC (Auto) 380 H (0-3) /hpf Urine Bacteria Rare (<OCC) 04/14/18 Range/Units 16:51 WBC 16.9 H (4.8-10.8) K/uL RBC 5.62 (4.40-5.90) Mil/uL Hgb 17.2 (12.0-18.0) g/dL Hct 51.7 H (35.0-51.0) % MCV 92.0 (80.0-94.0) fL MCH 30.6 (27.0-31.0) pg MCHC 33.2 (33.0-37.0) g/dL RDW 13.1 (11.5-14.5) % Plt Count 219 (130-400) K/uL MPV 7.7 (7.2-11.7) fL Neut % (Auto) 91.5 H (50.0-75.0) % Lymph % (Auto) 2.6 L (20.0-40.0) % [place] % (Auto) 5.6 (0.0-10.0) % Eos % (Auto) 0.2 (0.0-4.0) % Baso % (Auto) 0.1 (0.0-2.0) % Neut # (Auto) 15.5 H (1.8-7.0) K/uL Lymph # (Auto) 0.4 L (1.0-4.3) K/uL [place] # (Auto) 0.9 H (0.0-0.8) K/uL Eos # (Auto) 0.0 (0.0-0.7) K/uL Baso # (Auto) 0.0 (0.0-0.2) K/uL Neutrophils % (Manual) 87 H (50-75) % Band Neutrophils % 6 H (0-2) % Lymphocytes % (Manual) 4 L (20-40) % Reactive Lymphs % Monocytes % (Manual) 3 (0-10) % Eosinophils % (Manual) (0-4) % Hypersegmented Polys Present Smudge Cells Present Platelet Estimate Normal (NORMAL) Large Platelets Present RBC Morphology Polychromasia Slight Poikilocytosis (manual Slight Anisocytosis (manual) Slight Microcytosis (manual) Slight Spherocytes Slight PT (9.7-12.2) SECONDS INR APTT (21-34) SECONDS Puncture Site pCO2 (35-45) mm/Hg pO2 (80-100) mm/Hg HCO3 (21-28) mmol/L ABG pH (7.35-7.45) ABG Total CO2 (22-28) mmol/L ABG O2 Saturation (95-98) % ABG Base Excess (-2.0-3.0) mmol/L Jose Test ABG Potassium (3.6-5.2) mmol/L A-a O2 Difference mm/Hg Respiratory Index Glucose (75-110) mg/dl Lactate (0.7-2.1) mmol/L Vent Mode Mechanical Rate FiO2 % Tidal Volume PEEP Crit Value Called To Crit Value Called By Crit Value Read Back Blood Gas Notified Time Sodium (132-148) mmol/L Potassium (3.6-5.2) mmol/L Chloride (98-107) mmol/L Carbon Dioxide (22-30) mmol/L Anion Gap (10-20) BUN (9-20) mg/dL Creatinine (0.8-1.5) mg/dL Est GFR ( Amer) Est GFR (Non-Af Amer) POC Glucose (mg/dL) (65-110) mg/dL Random Glucose (75-110) mg/dL Hemoglobin A1c (4.2-6.5) % Calcium (8.6-10.4) mg/dl Phosphorus (2.5-4.5) mg/dL Magnesium (1.6-2.3) mg/dL Total Bilirubin (0.2-1.3) mg/dL AST (17-59) U/L ALT (21-72) U/L Alkaline Phosphatase (38-126) U/L Total Protein (6.3-8.3) g/dL Albumin (3.5-5.0) g/dL Globulin (2.2-3.9) gm/dL Albumin/Globulin Ratio (1.0-2.1) Arterial Blood Potassium (3.6-5.2) mmol/L Urine Color (YELLOW) Urine Clarity (Clear) Urine pH (5.0-8.0) Ur Specific [place] (1.003-1.030) Urine Protein (NEGATIVE) mg/dL Urine Glucose (UA) (Normal) mg/dL Urine Ketones (NEGATIVE) mg/dL Urine Blood (NEGATIVE) Urine Nitrate (NEGATIVE) Urine Bilirubin (NEGATIVE) Urine Urobilinogen (0.2-1.0) mg/dL Ur Leukocyte Esterase (Negative) Ezra/uL Urine WBC (Auto) (0-5) /hpf Urine RBC (Auto) (0-3) /hpf Urine Bacteria (<OCC) Laboratory Results - last 24 hr 04/14/18 04/14/18 04/14/18 16:51 16:51 16:51 WBC 16.9 H RBC 5.62 Hgb 17.2 Hct 51.7 H MCV 92.0 MCH 30.6 MCHC 33.2 RDW 13.1 Plt Count 219 MPV 7.7 Neut % (Auto) 91.5 H Lymph % (Auto) 2.6 L [place] % (Auto) 5.6 Eos % (Auto) 0.2 Baso % (Auto) 0.1 Neut # (Auto) 15.5 H Lymph # (Auto) 0.4 L [place] # (Auto) 0.9 H Eos # (Auto) 0.0 Baso # (Auto) 0.0 Neutrophils % (Manual) 87 H Band Neutrophils % 6 H Lymphocytes % (Manual) 4 L Reactive Lymphs % Monocytes % (Manual) 3 Eosinophils % (Manual) Hypersegmented Polys Present Smudge Cells Present Platelet Estimate Normal Large Platelets Present RBC Morphology Polychromasia Slight Poikilocytosis (manual Slight Anisocytosis (manual) Slight Microcytosis (manual) Slight Spherocytes Slight PT 12.9 H INR 1.2 APTT 30 Puncture Site pCO2 pO2 HCO3 ABG pH ABG Total CO2 ABG O2 Saturation ABG Base Excess Jose Test ABG Potassium A-a O2 Difference Respiratory Index Glucose Lactate Vent Mode Mechanical Rate FiO2 Tidal Volume PEEP Crit Value Called To Crit Value Called By Crit Value Read Back Blood Gas Notified Time Sodium 135 Potassium 3.6 Chloride 102 Carbon Dioxide 24 Anion Gap 13 BUN 16 Creatinine 0.8 Est GFR ( Amer) > 60 Est GFR (Non-Af Amer) > 60 POC Glucose (mg/dL) Random Glucose 163 H Hemoglobin A1c Calcium 7.7 L Phosphorus 2.2 L Magnesium 1.7 Total Bilirubin 1.4 H AST 144 H ALT 280 H Alkaline Phosphatase 81 Total Protein 7.2 Albumin 4.3 Globulin 2.8 Albumin/Globulin Ratio 1.5 Arterial Blood Potassium Urine Color Urine Clarity Urine pH Ur Specific [place] Urine Protein Urine Glucose (UA) Urine Ketones Urine Blood Urine Nitrate Urine Bilirubin Urine Urobilinogen Ur Leukocyte Esterase Urine WBC (Auto) Urine RBC (Auto) Urine Bacteria 03/04/19 03/04/19 03/04/19 16:51 17:49 22:09 WBC 18.6 H RBC 5.20 Hgb 16.1 Hct 47.6 MCV 91.6 MCH 31.0 MCHC 33.8 RDW 12.9 Plt Count 202 MPV 7.7 Neut % (Auto) 89.9 H Lymph % (Auto) 3.4 L [place] % (Auto) 5.6 Eos % (Auto) 0.8 Baso % (Auto) 0.3 Neut # (Auto) 16.7 H Lymph # (Auto) 0.6 L [place] # (Auto) 1.0 H Eos # (Auto) 0.2 Baso # (Auto) 0.1 Neutrophils % (Manual) 85 H Band Neutrophils % 5 H Lymphocytes % (Manual) 3 L Reactive Lymphs % Monocytes % (Manual) 7 Eosinophils % (Manual) Hypersegmented Polys Present Smudge Cells Present Platelet Estimate Normal Large Platelets Present RBC Morphology Polychromasia Poikilocytosis (manual Slight Anisocytosis (manual) Slight Microcytosis (manual) Slight Spherocytes PT INR APTT Puncture Site pCO2 pO2 HCO3 ABG pH ABG Total CO2 ABG O2 Saturation ABG Base Excess Jose Test ABG Potassium A-a O2 Difference Respiratory Index Glucose Lactate Vent Mode Mechanical Rate FiO2 Tidal Volume PEEP Crit Value Called To Crit Value Called By Crit Value Read Back Blood Gas Notified Time Sodium Potassium Chloride Carbon Dioxide Anion Gap BUN Creatinine Est GFR ( Amer) Est GFR (Non-Af Amer) POC Glucose (mg/dL) 120 H Random Glucose Hemoglobin A1c Calcium Phosphorus Magnesium Total Bilirubin AST ALT Alkaline Phosphatase Total Protein Albumin Globulin Albumin/Globulin Ratio Arterial Blood Potassium Urine Color Yellow Urine Clarity Clear Urine pH 5.0 Ur Specific [place] 1.012 Urine Protein Negative Urine Glucose (UA) 2+ H Urine Ketones Negative Urine Blood 3+ H Urine Nitrate Negative Urine Bilirubin Negative Urine Urobilinogen Normal Ur Leukocyte Esterase Neg Urine WBC (Auto) 3 Urine RBC (Auto) 380 H Urine Bacteria Rare 04/14/18 04/14/18 04/15/18 22:09 22:09 00:01 WBC RBC Hgb Hct MCV MCH MCHC RDW Plt Count MPV Neut % (Auto) Lymph % (Auto) [place] % (Auto) Eos % (Auto) Baso % (Auto) Neut # (Auto) Lymph # (Auto) [place] # (Auto) Eos # (Auto) Baso # (Auto) Neutrophils % (Manual) Band Neutrophils % Lymphocytes % (Manual) Reactive Lymphs % Monocytes % (Manual) Eosinophils % (Manual) Hypersegmented Polys Smudge Cells Platelet Estimate Large Platelets RBC Morphology Polychromasia Poikilocytosis (manual Anisocytosis (manual) Microcytosis (manual) Spherocytes PT 13.3 H INR 1.2 APTT 30 Puncture Site pCO2 pO2 HCO3 ABG pH ABG Total CO2 ABG O2 Saturation ABG Base Excess Jose Test ABG Potassium A-a O2 Difference Respiratory Index Glucose Lactate Vent Mode Mechanical Rate FiO2 Tidal Volume PEEP Crit Value Called To Crit Value Called By Crit Value Read Back Blood Gas Notified Time Sodium 139 Potassium 4.3 Chloride 106 Carbon Dioxide 25 Anion Gap 12 BUN 14 Creatinine 0.7 L Est GFR ( Amer) > 60 Est GFR (Non-Af Amer) > 60 POC Glucose (mg/dL) 126 H Random Glucose 135 H Hemoglobin A1c Calcium 7.5 L Phosphorus 2.2 L Magnesium 1.9 Total Bilirubin AST ALT Alkaline Phosphatase Total Protein Albumin Globulin Albumin/Globulin Ratio Arterial Blood Potassium Urine Color Urine Clarity Urine pH Ur Specific [place] Urine Protein Urine Glucose (UA) Urine Ketones Urine Blood Urine Nitrate Urine Bilirubin Urine Urobilinogen Ur Leukocyte Esterase Urine WBC (Auto) Urine RBC (Auto) Urine Bacteria 04/15/18 04/15/18 04/15/18 05:24 05:50 06:14 WBC 17.2 H RBC 5.20 Hgb 16.2 Hct 48.0 MCV 92.4 MCH 31.1 H MCHC 33.7 RDW 12.9 Plt Count 184 MPV 8.2 Neut % (Auto) 87.5 H Lymph % (Auto) 5.1 L [place] % (Auto) 5.5 Eos % (Auto) 1.8 Baso % (Auto) 0.1 Neut # (Auto) 15.0 H Lymph # (Auto) 0.9 L [place] # (Auto) 0.9 H Eos # (Auto) 0.3 Baso # (Auto) 0.0 Neutrophils % (Manual) 83 H Band Neutrophils % 3 H Lymphocytes % (Manual) 6 L Reactive Lymphs % TEST NOT PERFORMED Monocytes % (Manual) 6 Eosinophils % (Manual) 2 Hypersegmented Polys Smudge Cells Platelet Estimate Normal Large Platelets RBC Morphology Normal Polychromasia Poikilocytosis (manual Anisocytosis (manual) Microcytosis (manual) Spherocytes PT INR APTT Puncture Site Rb pCO2 21 L pO2 139 H HCO3 17.9 L ABG pH 7.41 ABG Total CO2 13.9 L ABG O2 Saturation 99.5 H ABG Base Excess -9.1 L Jose Test Na ABG Potassium 1.9 L* A-a O2 Difference 263.0 Respiratory Index 1.9 Glucose 80 Lactate 0.8 Vent Mode Prvc Mechanical Rate 18 FiO2 60.0 Tidal Volume 500 PEEP 5 Crit Value Called To Jennifer norman/rn Crit Value Called By Mandie castano/rt Crit Value Read Back Y Blood Gas Notified Time 625 Sodium 151.0 H Potassium Chloride 126.0 H Carbon Dioxide Anion Gap BUN Creatinine Est GFR ( Amer) Est GFR (Non-Af Amer) POC Glucose (mg/dL) 129 H Random Glucose Hemoglobin A1c Calcium Phosphorus Magnesium Total Bilirubin AST ALT Alkaline Phosphatase Total Protein Albumin Globulin Albumin/Globulin Ratio Arterial Blood Potassium 1.9 L* Urine Color Urine Clarity Urine pH Ur Specific [place] Urine Protein Urine Glucose (UA) Urine Ketones Urine Blood Urine Nitrate Urine Bilirubin Urine Urobilinogen Ur Leukocyte Esterase Urine WBC (Auto) Urine RBC (Auto) Urine Bacteria 04/15/18 04/15/18 04/15/18 06:14 06:14 06:14 WBC RBC Hgb Hct MCV MCH MCHC RDW Plt Count MPV Neut % (Auto) Lymph % (Auto) [place] % (Auto) Eos % (Auto) Baso % (Auto) Neut # (Auto) Lymph # (Auto) [place] # (Auto) Eos # (Auto) Baso # (Auto) Neutrophils % (Manual) Band Neutrophils % Lymphocytes % (Manual) Reactive Lymphs % Monocytes % (Manual) Eosinophils % (Manual) Hypersegmented Polys Smudge Cells Platelet Estimate Large Platelets RBC Morphology Polychromasia Poikilocytosis (manual Anisocytosis (manual) Microcytosis (manual) Spherocytes PT 13.0 H INR 1.2 APTT 28 Puncture Site pCO2 pO2 HCO3 ABG pH ABG Total CO2 ABG O2 Saturation ABG Base Excess Jose Test ABG Potassium A-a O2 Difference Respiratory Index Glucose Lactate Vent Mode Mechanical Rate FiO2 Tidal Volume PEEP Crit Value Called To Crit Value Called By Crit Value Read Back Blood Gas Notified Time Sodium 137 Potassium 3.9 Chloride 107 Carbon Dioxide 24 Anion Gap 10 BUN 13 Creatinine 0.6 L Est GFR ( Amer) > 60 Est GFR (Non-Af Amer) > 60 POC Glucose (mg/dL) Random Glucose 128 H Hemoglobin A1c 5.8 Calcium 8.3 L Phosphorus 1.7 L Magnesium 2.2 Total Bilirubin 0.9 AST 117 H ALT 207 H D Alkaline Phosphatase 78 Total Protein 6.4 Albumin 3.8 Globulin 2.6 Albumin/Globulin Ratio 1.4 Arterial Blood Potassium Urine Color Urine Clarity Urine pH Ur Specific [place] Urine Protein Urine Glucose (UA) Urine Ketones Urine Blood Urine Nitrate Urine Bilirubin Urine Urobilinogen Ur Leukocyte Esterase Urine WBC (Auto) Urine RBC (Auto) Urine Bacteria 04/15/18 11:15 WBC RBC Hgb Hct MCV MCH MCHC RDW Plt Count MPV Neut % (Auto) Lymph % (Auto) [place] % (Auto) Eos % (Auto) Baso % (Auto) Neut # (Auto) Lymph # (Auto) [place] # (Auto) Eos # (Auto) Baso # (Auto) Neutrophils % (Manual) Band Neutrophils % Lymphocytes % (Manual) Reactive Lymphs % Monocytes % (Manual) Eosinophils % (Manual) Hypersegmented Polys Smudge Cells Platelet Estimate Large Platelets RBC Morphology Polychromasia Poikilocytosis (manual Anisocytosis (manual) Microcytosis (manual) Spherocytes PT INR APTT Puncture Site pCO2 pO2 HCO3 ABG pH ABG Total CO2 ABG O2 Saturation ABG Base Excess Jose Test ABG Potassium A-a O2 Difference Respiratory Index Glucose Lactate Vent Mode Mechanical Rate FiO2 Tidal Volume PEEP Crit Value Called To Crit Value Called By Crit Value Read Back Blood Gas Notified Time Sodium Potassium Chloride Carbon Dioxide Anion Gap BUN Creatinine Est GFR ( Amer) Est GFR (Non-Af Amer) POC Glucose (mg/dL) 121 H Random Glucose Hemoglobin A1c Calcium Phosphorus Magnesium Total Bilirubin AST ALT Alkaline Phosphatase Total Protein Albumin Globulin Albumin/Globulin Ratio Arterial Blood Potassium Urine Color Urine Clarity Urine pH Ur Specific [place] Urine Protein Urine Glucose (UA) Urine Ketones Urine Blood Urine Nitrate Urine Bilirubin Urine Urobilinogen Ur Leukocyte Esterase Urine WBC (Auto) Urine RBC (Auto) Urine Bacteria Radiology Impressions: Radiology Impressions Duplex Scan Lower Extremity Artery 04/13/18 12:15 IMPRESSION: Right: No evidence of deep or superficial vein thrombosis of the right lower extremity. Normal valve function noted of the right side. Left: No evidence of deep or superficial vein thrombosis of the left lower extremity. Normal valve function noted of the left side. Head CT 04/14/18 15:02 IMPRESSION: Little interval change in mild diffuse effacement of cortical sulci and indistinct pablo-white matter differentiation related to hypoxic-anoxic insult with the stated clinical history. Chest X-Ray 04/15/18 06:00 IMPRESSION: Interval repositioning of the nasogastric tube-currently its sidehole appears satisfactory in position-the tip probably courses retrograde towards the gastric lateral upper body. Endotracheal tube as above. Minimal pulmonary venous congestion [id number] Head CT 04/15/18 12:33 IMPRESSION: Extensive diffuse homogeneous appearance of the brain parenchyma with loss of the corticomedullary distinction and on diminution of cerebral sulci. Findings consistent with sequela diffusehypoxia. EKG/Cardiology Studies: Cardiology / EKG Studies 04/15/18 12:30 EKG [ELECTROCARDIOGRAM] DAILY Comment: Mode Of Transportation: Reason For Exam: code heart vasospasm 04/16/18 12:30 EKG [ELECTROCARDIOGRAM] DAILY Comment: Mode Of Transportation: Reason For Exam: code heart vasospasm 04/17/18 12:30 EKG [ELECTROCARDIOGRAM] DAILY Comment: Mode Of Transportation: Reason For Exam: code heart vasospasm Fingerstick Blood Sugar Results: 121 Review of Systems - Review of Systems Systems not reviewed;Unavailable: Intubated Critical Care Progress Note - Ventilator Checklist Head of Bed 30 Degrees: Yes - Vent Settings MODE:: PRVC TIDAL VOLUME:: 500 RESP RATE:: 18 FIO2:: 60 PEEP:: 5 - Extremities/Vascular Does the Patient have a Campuzano Catheter?: Yes Does the Patient need a Campuzano Catheter?: Yes - Prophylaxis GI Prophylaxis GI: PPI - Prophylaxis DVT Prophylaxis DVT: SCDs - Nutrition Nutrition: Nutrition Category Date Time Status NPO Diet [DIET] Diets 04/13/18 Dinner Active Assessment/Plan - Assessment and Plan (Free Text) Assessment: 43M w/ pmhx of hypothyrodism, found unresponsive in parking lot in cardiac arrest, cardiac cath shows clean arteries, hypothermic protocol completed, monitoring neurological status. Patient likely has poor prognosis. Today patient in status epilepicus 1) Anoxic brain injury 2) Acute respiratory failure 3) Cardiac arrest 4) Status epilepticus Plan: Neuro - intubated - on versed drip & propofol drip - video EEG indicative of status epileptics - Per neuro - kepra 1500 Q12H - vimpat 100 mg Q12H - depakote 1000mg Q12H - CT indicative of edema; repeat CT: diffuse homogenous appearance of brain parenchyma w/ loss of the coritcomedullary distinction - cisatracurium for myclonic jerks Cardio - vitals stable - clean coronary arteries - EF 65% - continue to monitor Resp - on ventilator - AB.41/21/139/17.9 - vent settings 18/60/500/5 - continue to monitor Renal - BUN/Cr wnl - NS 50 cc/hr GI - NPO Heme - Stable H/H - elevated WBC - negative cultures to date - ?sepsis - vancomycin & zosyn Endo - hx of hypothyrodism - TSH initially 0.06 - c/w levothyroxine 125 mcg PO daily - F/u TSH/FreeT4 PPx; - GI: protonix - DVT: heparin SC, SCds
[2018-04-15] MEDS: Acetaminophen 650mg/20.3ml solution UD NG SCH ×2 (17:05→18:36)
[2018-04-15] MEDS: Valproate 1,000 MG in Sodium Chloride 0.9% 100 ML IVPB SCH (17:18)
[2018-04-15] MEDS ORDERED: Lacosamide 200mg/20ml Inj IVP SCH (20:00)
[2018-04-15] MEDS: SODIUM CHLORIDE 0.9% IVPB SCH (20:35)
[2018-04-15] MEDS: LACOSAMIDE IVPB SCH (20:35)
[2018-04-15] MEDS ORDERED: Sodium Chloride 0.9% 1,000 ML IV ONE (22:09)
--- NOTE | 2018-04-15 23:26 | CP.PCM.PN ---
Subjective - Date & Time of Evaluation Date of Evaluation: 04/15/18 Time of Evaluation: 09:15 - Subjective Subjective: Patient seen and evaluated Intubated and unresponsive Review of Systems - Review of Systems All systems: reviewed and no additional remarkable complaints except Review of Systems: ROS unobtainable form patient due to intubation and AMS. ROS obtained from nursing. per nursing patient has been unresponsive with some jerky movements. Physical Exam - Constitutional Appears: In Acute Distress - Head Exam Head Exam: ATRAUMATIC, NORMAL INSPECTION, NORMOCEPHALIC - Eye Exam Additional comments: slow reaction to light. left pupil slower reacting, both pup[ils constrict - ENT Exam ENT Exam: Mucous Membranes Dry Additional comments: ETT - Neck Exam Neck exam: Positive for: Normal Inspection - Respiratory Exam Respiratory Exam: Decreased Breath Sounds Additional comments: On MV - Cardiovascular Exam Cardiovascular Exam: Tachycardia, Irregular Rhythm - GI/Abdominal Exam GI & Abdominal Exam: Diminished Bowel Sounds, Distended - Rectal Exam Rectal Exam: Deferred - Exam Exam: NORMAL INSPECTION Additional comments: Campuzano cath - Extremities Exam Extremities exam: Positive for: joint swelling, pedal edema - Back Exam Back exam: NORMAL INSPECTION - Neurological Exam Neurological exam: Motor Sensory Deficit - Psychiatric Exam Psychiatric exam: Flat Affect - Skin Skin Exam: Dry, Mottled, Normal Color, Warm Objective - Vital Signs/Intake and Output Vital Signs (last 24 hours): Temp Pulse Resp BP Pulse Ox 100.6 F H 135 H 22 99/48 L 99 04/15/18 18:05 04/15/18 22:00 04/15/18 22:00 04/15/18 21:18 04/15/18 22:00 Intake and Output: 04/15/18 04/16/18 18:59 06:59 Intake Total 1752.8 2298.9 Output Total 790 100 Balance 962.8 2198.9 - Medications Medications: Current Medications Acetaminophen (Tylenol 650mg/20.3ml Solution Ud) 650 mg NG Q6 ROBERT Stop: 04/16/18 11:00 Last Admin: 04/15/18 18:36 Dose: Not Given Heparin Sodium (Porcine) (Heparin) 5,000 units SC Q8 ROBERT Last Admin: 04/15/18 22:00 Dose: 5,000 units Midazolam HCl 100 mg/ Dextrose 100 mls @ 2 mls/hr IV .Q24H ROBERT; Protocol Last Titration: 04/15/18 17:50 Dose: 0.01 mg/kg/hr, 1 mls/hr Cisatracurium Besylate 100 mg/ (Dextrose) 250 mls @ 41.03 mls/hr IV .Q6H6M PRN; Protocol PRN Reason: Seizure activity Last Admin: 04/15/18 20:36 Dose: 1 mcg/kg/min, 13.68 mls/hr Piperacillin Sod/Tazobactam (Sod 3.375 gm/ Sodium Chloride) 100 mls @ 200 mls/hr IVPB Q8H ROBERT; Protocol Last Admin: 04/15/18 21:52 Dose: 200 mls/hr Levetiracetam 1,500 mg/ (Dextrose) 115 mls @ 420 mls/hr IVPB Q12H ROBERT Last Admin: 04/15/18 14:33 Dose: 420 mls/hr Vancomycin/Sodium Chloride (Vancomycin 1 Gm/Ns 200 Ml) 1 gm in 200 mls @ 67 mls/hr IVPB Q12H ROBERT; Protocol Stop: 04/18/18 16:01 Last Admin: 04/15/18 17:03 Dose: 67 mls/hr Propofol (Diprivan) 1,000 mg in 100 mls @ 2.735 mls/hr IV .Q24H PRN; Protocol PRN Reason: TITRATE PER MD ORDER Last Titration: 04/15/18 17:50 Dose: 5 mcg/kg/min, 2.735 mls/hr Sodium Chloride (Sodium Chloride 0.9%) 1,000 mls @ 50 mls/hr IV .Q20H ROBERT Last Admin: 04/15/18 07:39 Dose: Not Given Valproate Sodium 1,000 mg/ (Sodium Chloride) 110 mls @ 100 mls/hr IVPB Q12H ROBERT Last Admin: 04/15/18 17:18 Dose: 100 mls/hr Lacosamide 100 mg/ Sodium (Chloride) 60 mls @ 100 mls/hr IVPB Q12H ROBERT Last Admin: 04/15/18 20:35 Dose: 100 mls/hr Insulin Aspart (Novolog) 0 unit SC Q6 ROBETR; Protocol Last Admin: 04/15/18 18:39 Dose: Not Given Levothyroxine Sodium (Synthroid) 125 mcg PO DAILY@0630 ROBERT Last Admin: 04/15/18 07:39 Dose: Not Given Pantoprazole Sodium (Protonix Inj) 40 mg IVP DAILY [facility] Last Admin: 04/15/18 10:41 Dose: 40 mg - Labs Labs: 04/15/18 06:14 04/15/18 06:14 PT 13.0 SECONDS (9.7-12.2) H 04/15/18 06:14 INR 1.2 04/15/18 06:14 APTT 28 SECONDS (21-34) 04/15/18 06:14 Assessment and Plan - Assessment and Plan (Free Text) Assessment: Impression * Acute respiratory distress and anoxic brain injury * GCS 3 * Severe Hypokalemia * Overall prognosis is very poor * Patient's wishes for the end of life care are not known and patient is not able to advocate for himself * Family understands severity of condition and understands that may occur * Family wants to promote peaceful in case another cardiac arrest occurs, and signed DNR * Suggestion * Continue all life support and treatment as of now * Aspiration precautions * Promote skin integrity * Allow natural in another cardiac arrest occurs * DNR
[2018-04-15] MEDS ORDERED: Acetaminophen IV 1,000 MG in Premixed IV 1 EA IV ONE (23:59)
[2018-04-16] MEDS: Acetaminophen 650mg/20.3ml solution UD NG SCH ×3 (00:25→11:06)
[2018-04-16] MEDS: (Novolog) Insulin Aspart, Recombinant 100 u/ml 10 ml vial SC SCH ×4 (00:26→18:33)
[2018-04-16] MEDS: Sodium Chloride 0.9% 1,000 ML IV SCH (02:52)
[2018-04-16] MEDS: Vancomycin 1 gm/NS 200 ml 1 GM/200 ML BAG IVPB SCH ×2 (03:28→15:58)
[2018-04-16] MEDS: Valproate 1,000 MG in Sodium Chloride 0.9% 100 ML IVPB SCH ×2 (05:20→18:50)
[2018-04-16] MEDS: Piperacillin/Tazobact 3.375 GM in Sodium Chloride 100 ML IVPB SCH ×3 (05:21→21:25)
[2018-04-16 05:59] LABS: BASO % 0.2 % (0.0-2.0); EOS % 0.2 % (0.0-4.0); HEMOGLOBIN 14.6 g/dL (12.0-18.0); LYMPH # 0.9 K/uL (1.0-4.3); MEAN CELL VOLUME 94.2 fL (80.0-94.0); MEAN CORPUSCULAR HEMOGLOBIN 31.3 pg (27.0-31.0); MEAN CORPUSCULAR HGB CONC 33.2 g/dL (33.0-37.0); MEAN PLATELET VOLUME 8.2 fL (7.2-11.7); MONO # 0.6 K/uL (0.0-0.8); MONO % 5.2 % (0.0-10.0); NEUT # 9.8 K/uL (1.8-7.0); NEUT % 86.4 % (50.0-75.0); PLATELET COUNT 171 K/uL (130-400); RBC 4.67 Mil/uL (4.40-5.90); RED CELL DISTRIBUTION WIDTH 13.6 % (11.5-14.5); WHITE BLOOD COUNT 11.3 K/uL (4.8-10.8)
[2018-04-16 07:04] LABS: BLOOD UREA NITROGEN 24 mg/dL (9-20); CALCIUM 7.7 mg/dl (8.6-10.4); GFR NON-AFRICAN AMERICAN > 60
[2018-04-16 07:05] LABS: ALB/GLOB RATIO 1.3 (1.0-2.1); ALBUMIN 3.3 g/dL (3.5-5.0); ALT/SGPT 137 U/L (21-72); AST/SGOT 99 U/L (17-59)
--- NOTE | 2018-04-16 07:24 | CP.CCUPN ---
<Edgar Luna M - Last Filed: 04/16/18 16:29> CCU Subjective - Physician Review Subjective (Free Text): Critical care progress note for Dr. Kidd Patient seen and examined at bedside. No acute events overnight. Patient is status epilepticus. Unable to obtain ROS due to intubation. Point person for family is patient sonJer, contact # [phone]. 04/16/18 16:29 CCU Objective - Vital Signs / Intake & Output Vital Signs (Last 4 hours): Vital Signs Temp Pulse Resp BP Pulse Ox 04/16/18 06:18 128 H 19 104/53 L 98 04/16/18 06:00 128 H 21 99 04/16/18 05:20 99.8 F H 04/16/18 05:18 118 H 21 104/56 L 98 04/16/18 05:00 119 H 19 97 04/16/18 04:19 128 H 22 107/55 L 96 04/16/18 04:00 133 H 20 94 L Intake and Output (Last 8hrs): Intake & Output 04/15/18 04/16/18 04/16/18 22:59 06:59 14:59 Intake Total 3179.3 1094.0 Output Total 565 440 Balance 2614.3 654.0 Weight 202 lb 2 oz Intake: IV 321.5 88.5 Intake, IV Amount 2857.8 905.5 Left Antecubital 424.0 121.5 Left Wrist 2215 600 R venous sheath 12 8 R venous sheath proximal 165.3 132.0 port Right AC Y port 41.5 44.0 Other 100 Output: Gastric Amount 100 Stomach 100 Urine 465 440 Urethral (Campuzano) 465 440 Oral Regurgitation 0 0 Other: # Bowel Movements 0 0 - Physical Exam Head: Positive for: Atraumatic, Normocephalic Mouth: Positive for: Moist Mucous Membranes Respiratory/Chest: Positive for: Other (on ventilator). Negative for: Respiratory Distress, Accessory Muscle Use, Wheezes, Rhonchi Cardiovascular: Positive for: Normal S1, S2 Abdomen: Negative for: Tenderness, Distention Upper Extremity: Positive for: Normal Inspection. Negative for: Edema Lower Extremity: Positive for: Normal Inspection. Negative for: Edema Skin: Positive for: Warm, Dry, Rashes Psychiatric: Positive for: Other (intubated) - Medications Active Medications: Active Medications Generic Name Dose Route Start Last Admin Trade Name Freq PRN Reason Stop Dose Admin Acetaminophen 650 mg 04/15/18 16:55 04/16/18 05:20 Tylenol 650mg/20.3ml Solution Ud NG 04/16/18 11:00 650 mg Q6 ROBERT Administration Heparin Sodium (Porcine) 5,000 units 04/14/18 14:00 04/16/18 05:21 Heparin SC 5,000 units Q8 ROBERT Administration Midazolam HCl 100 mg/ Dextrose 100 mls @ 2 mls/hr 04/13/18 11:15 04/15/18 17:50 IV 0.01 mg/kg/hr .Q24H ROBERT 1 mls/hr Titration Protocol 0.02 MG/KG/HR Cisatracurium Besylate 100 mg/ 250 mls @ 41.03 mls/hr 04/13/18 14:00 04/15/18 23:30 Dextrose IV 1.2 mcg/kg/min .Q6H6M PRN 16.41 mls/hr Seizure activity Titration Protocol 3 MCG/KG/MIN Piperacillin Sod/Tazobactam 100 mls @ 200 mls/hr 04/13/18 14:15 04/16/18 05:21 Sod 3.375 gm/ Sodium Chloride IVPB 200 mls/hr Q8H ROBERT Administration Protocol Levetiracetam 1,500 mg/ 115 mls @ 420 mls/hr 04/13/18 14:30 04/16/18 01:51 Dextrose IVPB 420 mls/hr Q12H ROBERT Administration Vancomycin/Sodium Chloride 1 gm in 200 mls @ 67 mls/hr 04/13/18 16:00 04/16/18 03:28 Vancomycin 1 Gm/Ns 200 Ml IVPB 04/18/18 16:01 67 mls/hr Q12H ROBERT Administration Protocol Propofol 1,000 mg in 100 mls @ 2.735 mls/hr 04/13/18 22:57 04/15/18 23:30 Diprivan IV 10 mcg/kg/min .Q24H PRN 5.47 mls/hr TITRATE PER MD ORDER Titration Protocol 5 MCG/KG/MIN Sodium Chloride 1,000 mls @ 50 mls/hr 04/14/18 10:36 04/16/18 02:52 Sodium Chloride 0.9% IV 50 mls/hr .Q20H ROBERT Administration Valproate Sodium 1,000 mg/ 110 mls @ 100 mls/hr 04/15/18 18:00 04/16/18 05:20 Sodium Chloride IVPB 100 mls/hr Q12H ROBERT Administration Lacosamide 100 mg/ Sodium 60 mls @ 100 mls/hr 04/15/18 20:00 04/15/18 20:35 Chloride IVPB 100 mls/hr Q12H ROBERT Administration Insulin Aspart 0 unit 04/14/18 12:00 04/16/18 07:23 Novolog SC Not Given Q6 [facility] Protocol Levothyroxine Sodium 125 mcg 04/14/18 12:30 04/15/18 07:39 Synthroid PO Not Given DAILY@0630 [facility] Pantoprazole Sodium 40 mg 04/14/18 10:00 04/15/18 10:41 Protonix Inj IVP 40 mg DAILY ROBERT Administration - Patient Studies Lab Studies: Microbiology Studies 04/13/18 14:40 Blood Culture - Preliminary Blood NO GROWTH AFTER 48 HOURS 04/13/18 14:30 Blood Culture - Preliminary Blood NO GROWTH AFTER 48 HOURS 04/14/18 16:51 Urine Culture - Final Urine,Campuzano No Growth (<1,000 CFU/ML) Lab Studies 04/16/18 04/16/18 04/16/18 Range/Units 05:52 05:52 00:17 WBC 11.3 H (4.8-10.8) K/uL RBC 4.67 (4.40-5.90) Mil/uL Hgb 14.6 (12.0-18.0) g/dL Hct 44.0 (35.0-51.0) % MCV 94.2 H (80.0-94.0) fL MCH 31.3 H (27.0-31.0) pg MCHC 33.2 (33.0-37.0) g/dL RDW 13.6 (11.5-14.5) % Plt Count 171 (130-400) K/uL MPV 8.2 (7.2-11.7) fL Neut % (Auto) 86.4 H (50.0-75.0) % Lymph % (Auto) 8.0 L (20.0-40.0) % [place] % (Auto) 5.2 (0.0-10.0) % Eos % (Auto) 0.2 (0.0-4.0) % Baso % (Auto) 0.2 (0.0-2.0) % Neut # (Auto) 9.8 H (1.8-7.0) K/uL Lymph # (Auto) 0.9 L (1.0-4.3) K/uL [place] # (Auto) 0.6 (0.0-0.8) K/uL Eos # (Auto) 0.0 (0.0-0.7) K/uL Baso # (Auto) 0.0 (0.0-0.2) K/uL Neutrophils % (Manual) (50-75) % Band Neutrophils % (0-2) % Lymphocytes % (Manual) (20-40) % Reactive Lymphs % Monocytes % (Manual) (0-10) % Eosinophils % (Manual) (0-4) % Platelet Estimate (NORMAL) RBC Morphology Sodium 143 (132-148) mmol/L Potassium 4.1 (3.6-5.2) mmol/L Chloride 114 H (98-107) mmol/L Carbon Dioxide 24 (22-30) mmol/L Anion Gap 9 L (10-20) BUN 24 H (9-20) mg/dL Creatinine 1.0 (0.8-1.5) mg/dL Est GFR ( Amer) > 60 Est GFR (Non-Af Amer) > 60 POC Glucose (mg/dL) 110 (65-110) mg/dL Random Glucose 119 H (75-110) mg/dL Hemoglobin A1c (4.2-6.5) % Calcium 7.7 L (8.6-10.4) mg/dl Phosphorus 2.7 (2.5-4.5) mg/dL Magnesium 2.1 (1.6-2.3) mg/dL Total Bilirubin 0.7 (0.2-1.3) mg/dL AST 99 H (17-59) U/L ALT 137 H D (21-72) U/L Alkaline Phosphatase 79 (38-126) U/L Total Protein 5.8 L (6.3-8.3) g/dL Albumin 3.3 L (3.5-5.0) g/dL Globulin 2.5 (2.2-3.9) gm/dL Albumin/Globulin Ratio 1.3 (1.0-2.1) TSH 3rd Generation 0.06 L (0.46-4.68) mIU/L 04/15/18 04/15/18 04/15/18 Range/Units 17:59 11:15 06:14 WBC (4.8-10.8) K/uL RBC (4.40-5.90) Mil/uL Hgb (12.0-18.0) g/dL Hct (35.0-51.0) % MCV (80.0-94.0) fL MCH (27.0-31.0) pg MCHC (33.0-37.0) g/dL RDW (11.5-14.5) % Plt Count (130-400) K/uL MPV (7.2-11.7) fL Neut % (Auto) (50.0-75.0) % Lymph % (Auto) (20.0-40.0) % [place] % (Auto) (0.0-10.0) % Eos % (Auto) (0.0-4.0) % Baso % (Auto) (0.0-2.0) % Neut # (Auto) (1.8-7.0) K/uL Lymph # (Auto) (1.0-4.3) K/uL [place] # (Auto) (0.0-0.8) K/uL Eos # (Auto) (0.0-0.7) K/uL Baso # (Auto) (0.0-0.2) K/uL Neutrophils % (Manual) (50-75) % Band Neutrophils % (0-2) % Lymphocytes % (Manual) (20-40) % Reactive Lymphs % Monocytes % (Manual) (0-10) % Eosinophils % (Manual) (0-4) % Platelet Estimate (NORMAL) RBC Morphology Sodium (132-148) mmol/L Potassium (3.6-5.2) mmol/L Chloride (98-107) mmol/L Carbon Dioxide (22-30) mmol/L Anion Gap (10-20) BUN (9-20) mg/dL Creatinine (0.8-1.5) mg/dL Est GFR ( Amer) Est GFR (Non-Af Amer) POC Glucose (mg/dL) 143 H 121 H (65-110) mg/dL Random Glucose (75-110) mg/dL Hemoglobin A1c 5.8 (4.2-6.5) % Calcium (8.6-10.4) mg/dl Phosphorus (2.5-4.5) mg/dL Magnesium (1.6-2.3) mg/dL Total Bilirubin (0.2-1.3) mg/dL AST (17-59) U/L ALT (21-72) U/L Alkaline Phosphatase (38-126) U/L Total Protein (6.3-8.3) g/dL Albumin (3.5-5.0) g/dL Globulin (2.2-3.9) gm/dL Albumin/Globulin Ratio (1.0-2.1) TSH 3rd Generation (0.46-4.68) mIU/L 04/15/18 04/15/18 Range/Units 06:14 05:50 WBC (4.8-10.8) K/uL RBC (4.40-5.90) Mil/uL Hgb (12.0-18.0) g/dL Hct (35.0-51.0) % MCV (80.0-94.0) fL MCH (27.0-31.0) pg MCHC (33.0-37.0) g/dL RDW (11.5-14.5) % Plt Count (130-400) K/uL MPV (7.2-11.7) fL Neut % (Auto) (50.0-75.0) % Lymph % (Auto) (20.0-40.0) % [place] % (Auto) (0.0-10.0) % Eos % (Auto) (0.0-4.0) % Baso % (Auto) (0.0-2.0) % Neut # (Auto) (1.8-7.0) K/uL Lymph # (Auto) (1.0-4.3) K/uL [place] # (Auto) (0.0-0.8) K/uL Eos # (Auto) (0.0-0.7) K/uL Baso # (Auto) (0.0-0.2) K/uL Neutrophils % (Manual) 83 H (50-75) % Band Neutrophils % 3 H (0-2) % Lymphocytes % (Manual) 6 L (20-40) % Reactive Lymphs % TEST NOT PERFORMED Monocytes % (Manual) 6 (0-10) % Eosinophils % (Manual) 2 (0-4) % Platelet Estimate Normal (NORMAL) RBC Morphology Normal Sodium (132-148) mmol/L Potassium (3.6-5.2) mmol/L Chloride (98-107) mmol/L Carbon Dioxide (22-30) mmol/L Anion Gap (10-20) BUN (9-20) mg/dL Creatinine (0.8-1.5) mg/dL Est GFR ( Amer) Est GFR (Non-Af Amer) POC Glucose (mg/dL) 129 H (65-110) mg/dL Random Glucose (75-110) mg/dL Hemoglobin A1c (4.2-6.5) % Calcium (8.6-10.4) mg/dl Phosphorus (2.5-4.5) mg/dL Magnesium (1.6-2.3) mg/dL Total Bilirubin (0.2-1.3) mg/dL AST (17-59) U/L ALT (21-72) U/L Alkaline Phosphatase (38-126) U/L Total Protein (6.3-8.3) g/dL Albumin (3.5-5.0) g/dL Globulin (2.2-3.9) gm/dL Albumin/Globulin Ratio (1.0-2.1) TSH 3rd Generation (0.46-4.68) mIU/L Laboratory Results - last 24 hr 04/15/18 04/15/18 04/15/18 05:50 06:14 06:14 WBC RBC Hgb Hct MCV MCH MCHC RDW Plt Count MPV Neut % (Auto) Lymph % (Auto) [place] % (Auto) Eos % (Auto) Baso % (Auto) Neut # (Auto) Lymph # (Auto) [place] # (Auto) Eos # (Auto) Baso # (Auto) Neutrophils % (Manual) 83 H Band Neutrophils % 3 H Lymphocytes % (Manual) 6 L Reactive Lymphs % TEST NOT PERFORMED Monocytes % (Manual) 6 Eosinophils % (Manual) 2 Platelet Estimate Normal RBC Morphology Normal Sodium Potassium Chloride Carbon Dioxide Anion Gap BUN Creatinine Est GFR ( Amer) Est GFR (Non-Af Amer) POC Glucose (mg/dL) 129 H Random Glucose Hemoglobin A1c 5.8 Calcium Phosphorus Magnesium Total Bilirubin AST ALT Alkaline Phosphatase Total Protein Albumin Globulin Albumin/Globulin Ratio [facility] 3rd Generation 04/15/18 04/15/18 04/16/18 11:15 17:59 00:17 WBC RBC Hgb Hct MCV MCH MCHC RDW Plt Count MPV Neut % (Auto) Lymph % (Auto) [place] % (Auto) Eos % (Auto) Baso % (Auto) Neut # (Auto) Lymph # (Auto) [place] # (Auto) Eos # (Auto) Baso # (Auto) Neutrophils % (Manual) Band Neutrophils % Lymphocytes % (Manual) Reactive Lymphs % Monocytes % (Manual) Eosinophils % (Manual) Platelet Estimate RBC Morphology Sodium Potassium Chloride Carbon Dioxide Anion Gap BUN Creatinine Est GFR ( Amer) Est GFR (Non-Af Amer) POC Glucose (mg/dL) 121 H 143 H 110 Random Glucose Hemoglobin A1c Calcium Phosphorus Magnesium Total Bilirubin AST ALT Alkaline Phosphatase Total Protein Albumin Globulin Albumin/Globulin Ratio [facility] 3rd Generation 04/16/18 04/16/18 05:52 05:52 WBC 11.3 H RBC 4.67 Hgb 14.6 Hct 44.0 MCV 94.2 H MCH 31.3 H MCHC 33.2 RDW 13.6 Plt Count 171 MPV 8.2 Neut % (Auto) 86.4 H Lymph % (Auto) 8.0 L [place] % (Auto) 5.2 Eos % (Auto) 0.2 Baso % (Auto) 0.2 Neut # (Auto) 9.8 H Lymph # (Auto) 0.9 L [place] # (Auto) 0.6 Eos # (Auto) 0.0 Baso # (Auto) 0.0 Neutrophils % (Manual) Band Neutrophils % Lymphocytes % (Manual) Reactive Lymphs % Monocytes % (Manual) Eosinophils % (Manual) Platelet Estimate RBC Morphology Sodium 143 Potassium 4.1 Chloride 114 H Carbon Dioxide 24 Anion Gap 9 L BUN 24 H Creatinine 1.0 Est GFR ( Amer) > 60 Est GFR (Non-Af Amer) > 60 POC Glucose (mg/dL) Random Glucose 119 H Hemoglobin A1c Calcium 7.7 L Phosphorus 2.7 Magnesium 2.1 Total Bilirubin 0.7 AST 99 H ALT 137 H D Alkaline Phosphatase 79 Total Protein 5.8 L Albumin 3.3 L Globulin 2.5 Albumin/Globulin Ratio 1.3 TSH 3rd Generation 0.06 L Radiology Impressions: Radiology Impressions Chest X-Ray 04/15/18 06:00 IMPRESSION: Interval repositioning of the nasogastric tube-currently its sidehole appears satisfactory in position-the tip probably courses retrograde towards the gastric lateral upper body. Endotracheal tube as above. Minimal pulmonary venous congestion [id number] Head CT 04/15/18 12:33 IMPRESSION: Extensive diffuse homogeneous appearance of the brain parenchyma with loss of the corticomedullary distinction and on diminution of cerebral sulci. Findings consistent with sequela diffusehypoxia. EKG/Cardiology Studies: Cardiology / EKG Studies 04/15/18 12:30 EKG [ELECTROCARDIOGRAM] DAILY Comment: Mode Of Transportation: Reason For Exam: code heart vasospasm 04/16/18 12:30 EKG [ELECTROCARDIOGRAM] DAILY Comment: Mode Of Transportation: Reason For Exam: code heart vasospasm 04/17/18 12:30 EKG [ELECTROCARDIOGRAM] DAILY Comment: Mode Of Transportation: Reason For Exam: code heart vasospasm Fingerstick Blood Sugar Results: 119 Review of Systems - Review of Systems Systems not reviewed;Unavailable: Intubated Critical Care Progress Note - Ventilator Checklist Head of Bed 30 Degrees: Yes Daily Sedation Vacation: No Daily Assessment of Readiness to Wean: Yes Daily Spontaneous Breathing Trial: No PUD Prophalyxis: Yes DVT Prophylaxis: Yes - Vent Settings MODE:: PRVC TIDAL VOLUME:: 500 RESP RATE:: 18 FIO2:: 60 PEEP:: 5 - Extremities/Vascular Does the Patient have a Central Venous Catheter?: No Does the Patient need a Central Venous Catheter?: No Does the Patient have a Campuzano Catheter?: Yes Does the Patient need a Campuzano Catheter?: Yes Catheter Insertion Criteria: Need for accurate measurement of output in critically ill patient - Prophylaxis GI Prophylaxis GI: PPI - Prophylaxis DVT Prophylaxis DVT: Heparin SQ - Nutrition Nutrition: Nutrition Category Date Time Status NPO Diet [DIET] Diets 04/13/18 Dinner Active Assessment/Plan - Assessment and Plan (Free Text) Assessment: 43M w/ pmhx of hypothyrodism, found unresponsive in parking lot in cardiac arrest, cardiac cath shows clean arteries, hypothermic protocol completed, monitoring neurological status. Patient likely has poor prognosis. Patient in status epilepicus 1) Anoxic brain injury 2) Acute respiratory failure 3) Cardiac arrest 4) Status epilepticus Plan: Neuro - intubated - on versed drip & propofol drip - video EEG indicative of status epileptics - Per neuro - kepra 1500 Q12H - vimpat 100 mg Q12H - depakote 1000mg Q12H - CT indicative of edema; repeat CT: diffuse homogenous appearance of brain parenchyma w/ loss of the coritcomedullary distinction - cisatracurium for myclonic jerks Cardio - vitals stable - clean coronary arteries - EF 65% - continue to monitor Resp - on ventilator - vent settings 18/60/500/5 - continue to monitor Renal - BUN/Cr wnl - NS 50 cc/hr GI - Jevity 1.5 initial 20 ml/hr, goal to 50, increase by 5 - free water flush, 250 ml, Q6hr Heme - Stable H/H - elevated WBC - negative cultures to date - ?sepsis - vancomycin & zosyn Endo - hx of hypothyrodism - TSH initially 0.06 - decrease levothyroxine to 75 mcg PO daily - F/u TSH/FreeT4 PPx; - GI: protonix - DVT: heparin SC, SCds <Latef,David M - Last Filed: 04/17/18 08:14> CCU Objective - Vital Signs / Intake & Output Vital Signs (Last 4 hours): Vital Signs Pulse Resp BP Pulse Ox 04/17/18 06:00 111 H 20 98 04/17/18 05:56 135/83 04/17/18 04:56 111 H 20 136/83 94 L Intake and Output (Last 8hrs): Intake & Output 04/16/18 04/17/18 04/17/18 22:59 06:59 14:59 Intake Total 970.4 1939.5 Output Total 540 600 Balance 430.4 1339.5 Weight 199 lb 8 oz Intake: IV 64.6 269 Intake, IV Amount 785.8 930.5 L AC #18 100 Left Antecubital 601 650 Left Wrist 44.0 44.0 Left mid-arm 9.6 15.5 Left upper extremity 131.2 121.0 Tube Feeding 120 240 Other 500 Output: Urine 540 600 Urethral (Campuzano) 540 600 Other: # Bowel Movements 0 0 - Medications Active Medications: Active Medications Generic Name Dose Route Start Last Admin Trade Name Freq PRN Reason Stop Dose Admin Heparin Sodium (Porcine) 5,000 units 04/14/18 14:00 04/17/18 05:22 Heparin SC 5,000 units Q8 ROBERT Administration Cisatracurium Besylate 100 mg/ 250 mls @ 41.03 mls/hr 04/13/18 14:00 04/17/18 05:35 Dextrose IV 0.7 mcg/kg/min .Q6H6M PRN 9.57 mls/hr Seizure activity Titration Protocol 3 MCG/KG/MIN Piperacillin Sod/Tazobactam 100 mls @ 200 mls/hr 04/13/18 14:15 04/17/18 05:41 Sod 3.375 gm/ Sodium Chloride IVPB 200 mls/hr Q8H ROBERT Administration Protocol Levetiracetam 1,500 mg/ 115 mls @ 420 mls/hr 04/13/18 14:30 04/17/18 02:35 Dextrose IVPB 420 mls/hr Q12H ROBERT Administration Vancomycin/Sodium Chloride 1 gm in 200 mls @ 67 mls/hr 04/13/18 16:00 04/17/18 03:08 Vancomycin 1 Gm/Ns 200 Ml IVPB 04/18/18 16:01 67 mls/hr Q12H ROBERT Administration Protocol Propofol 1,000 mg in 100 mls @ 2.735 mls/hr 04/13/18 22:57 04/17/18 01:02 Diprivan IV 10 mcg/kg/min .Q24H PRN 5.47 mls/hr TITRATE PER MD ORDER Administration Protocol 5 MCG/KG/MIN Sodium Chloride 1,000 mls @ 50 mls/hr 04/14/18 10:36 04/17/18 03:30 Sodium Chloride 0.9% IV 50 mls/hr .Q20H ROBERT Administration Valproate Sodium 1,000 mg/ 110 mls @ 100 mls/hr 04/15/18 18:00 04/17/18 05:23 Sodium Chloride IVPB 100 mls/hr Q12H ROBERT Administration Lacosamide 100 mg/ Sodium 60 mls @ 100 mls/hr 04/15/18 20:00 04/16/18 19:52 Chloride IVPB 100 mls/hr Q12H ROBERT Administration Midazolam HCl 100 mg/ Dextrose 100 mls @ 0.92 mls/hr 04/16/18 21:15 04/17/18 03:00 IV 0.03 mg/kg/hr .Q24H ROBERT 2.9 mls/hr Titration Protocol 0.01 MG/KG/HR Insulin Aspart 0 unit 04/17/18 00:00 04/17/18 06:10 Novolog SC Not Given Q6 [facility] Protocol Levothyroxine Sodium 75 mcg 04/17/18 06:30 04/17/18 06:03 Synthroid PO 75 mcg DAILY@0630 ROBERT Administration Pantoprazole Sodium 40 mg 04/14/18 10:00 04/16/18 11:06 Protonix Inj IVP 40 mg DAILY ROBERT Administration Potassium Phos/Sodium Phos 1 pkt 04/17/18 10:00 Neutra-Phos NG 04/20/18 10:01 TID ROBERT - Patient Studies Lab Studies: Microbiology Studies 04/13/18 14:40 Blood Culture - Preliminary Blood NO GROWTH AFTER 3 DAYS 04/13/18 14:30 Blood Culture - Preliminary Blood NO GROWTH AFTER 3 DAYS Lab Studies 04/17/18 04/17/18 04/16/18 Range/Units 06:00 06:00 05:52 WBC 10.3 (4.8-10.8) K/uL RBC 4.18 L (4.40-5.90) Mil/uL Hgb 13.2 (12.0-18.0) g/dL Hct 39.4 (35.0-51.0) % MCV 94.2 H (80.0-94.0) fL MCH 31.6 H (27.0-31.0) pg MCHC 33.5 (33.0-37.0) g/dL RDW 13.1 (11.5-14.5) % Plt Count 162 (130-400) K/uL MPV 8.0 (7.2-11.7) fL Neut % (Auto) 77.6 H (50.0-75.0) % Lymph % (Auto) 14.7 L (20.0-40.0) % [place] % (Auto) 5.2 (0.0-10.0) % Eos % (Auto) 2.0 (0.0-4.0) % Baso % (Auto) 0.5 (0.0-2.0) % Neut # (Auto) 8.0 H (1.8-7.0) K/uL Lymph # (Auto) 1.5 (1.0-4.3) K/uL [place] # (Auto) 0.5 (0.0-0.8) K/uL Eos # (Auto) 0.2 (0.0-0.7) K/uL Baso # (Auto) 0.1 (0.0-0.2) K/uL Neutrophils % (Manual) 84 H (50-75) % Band Neutrophils % 1 (0-2) % Lymphocytes % (Manual) 9 L (20-40) % Monocytes % (Manual) 4 (0-10) % Eosinophils % (Manual) 2 (0-4) % Platelet Estimate Normal (NORMAL) RBC Morphology Normal Sodium 137 (132-148) mmol/L Potassium 4.0 (3.6-5.2) mmol/L Chloride 108 H (98-107) mmol/L Carbon Dioxide 27 (22-30) mmol/L Anion Gap 6 L (10-20) BUN 24 H (9-20) mg/dL Creatinine 0.8 (0.8-1.5) mg/dL Est GFR ( Amer) > 60 Est GFR (Non-Af Amer) > 60 POC Glucose (mg/dL) (65-110) mg/dL Random Glucose 144 H D (75-110) mg/dL Calcium 8.3 L (8.6-10.4) mg/dl Phosphorus 1.9 L (2.5-4.5) mg/dL Magnesium 2.3 (1.6-2.3) mg/dL Total Bilirubin 0.7 (0.2-1.3) mg/dL AST 124 H D (17-59) U/L ALT 94 H D (21-72) U/L Alkaline Phosphatase 71 (38-126) U/L Total Protein 5.8 L (6.3-8.3) g/dL Albumin 3.1 L (3.5-5.0) g/dL Globulin 2.7 (2.2-3.9) gm/dL Albumin/Globulin Ratio 1.1 (1.0-2.1) /06/29 Range/Units 17:59 WBC (4.8-10.8) K/uL RBC (4.40-5.90) Mil/uL Hgb (12.0-18.0) g/dL Hct (35.0-51.0) % MCV (80.0-94.0) fL MCH (27.0-31.0) pg MCHC (33.0-37.0) g/dL RDW (11.5-14.5) % Plt Count (130-400) K/uL MPV (7.2-11.7) fL Neut % (Auto) (50.0-75.0) % Lymph % (Auto) (20.0-40.0) % [place] % (Auto) (0.0-10.0) % Eos % (Auto) (0.0-4.0) % Baso % (Auto) (0.0-2.0) % Neut # (Auto) (1.8-7.0) K/uL Lymph # (Auto) (1.0-4.3) K/uL [place] # (Auto) (0.0-0.8) K/uL Eos # (Auto) (0.0-0.7) K/uL Baso # (Auto) (0.0-0.2) K/uL Neutrophils % (Manual) (50-75) % Band Neutrophils % (0-2) % Lymphocytes % (Manual) (20-40) % Monocytes % (Manual) (0-10) % Eosinophils % (Manual) (0-4) % Platelet Estimate (NORMAL) RBC Morphology Sodium (132-148) mmol/L Potassium (3.6-5.2) mmol/L Chloride (98-107) mmol/L Carbon Dioxide (22-30) mmol/L Anion Gap (10-20) BUN (9-20) mg/dL Creatinine (0.8-1.5) mg/dL Est GFR ( Amer) Est GFR (Non-Af Amer) POC Glucose (mg/dL) 143 H (65-110) mg/dL Random Glucose (75-110) mg/dL Calcium (8.6-10.4) mg/dl Phosphorus (2.5-4.5) mg/dL Magnesium (1.6-2.3) mg/dL Total Bilirubin (0.2-1.3) mg/dL AST (17-59) U/L ALT (21-72) U/L Alkaline Phosphatase (38-126) U/L Total Protein (6.3-8.3) g/dL Albumin (3.5-5.0) g/dL Globulin (2.2-3.9) gm/dL Albumin/Globulin Ratio (1.0-2.1) Laboratory Results - last 24 hr 04/15/18 04/16/18 04/17/18 17:59 05:52 06:00 WBC 10.3 RBC 4.18 L Hgb 13.2 Hct 39.4 MCV 94.2 H MCH 31.6 H MCHC 33.5 RDW 13.1 Plt Count 162 MPV 8.0 Neut % (Auto) 77.6 H Lymph % (Auto) 14.7 L [place] % (Auto) 5.2 Eos % (Auto) 2.0 Baso % (Auto) 0.5 Neut # (Auto) 8.0 H Lymph # (Auto) 1.5 [place] # (Auto) 0.5 Eos # (Auto) 0.2 Baso # (Auto) 0.1 Neutrophils % (Manual) 84 H Band Neutrophils % 1 Lymphocytes % (Manual) 9 L Monocytes % (Manual) 4 Eosinophils % (Manual) 2 Platelet Estimate Normal RBC Morphology Normal Sodium Potassium Chloride Carbon Dioxide Anion Gap BUN Creatinine Est GFR ( Amer) Est GFR (Non-Af Amer) POC Glucose (mg/dL) 143 H Random Glucose Calcium Phosphorus Magnesium Total Bilirubin AST ALT Alkaline Phosphatase Total Protein Albumin Globulin Albumin/Globulin Ratio 04/17/18 06:00 WBC RBC Hgb Hct MCV MCH MCHC RDW Plt Count MPV Neut % (Auto) Lymph % (Auto) [place] % (Auto) Eos % (Auto) Baso % (Auto) Neut # (Auto) Lymph # (Auto) [place] # (Auto) Eos # (Auto) Baso # (Auto) Neutrophils % (Manual) Band Neutrophils % Lymphocytes % (Manual) Monocytes % (Manual) Eosinophils % (Manual) Platelet Estimate RBC Morphology Sodium 137 Potassium 4.0 Chloride 108 H Carbon Dioxide 27 Anion Gap 6 L BUN 24 H Creatinine 0.8 Est GFR ( Amer) > 60 Est GFR (Non-Af Amer) > 60 POC Glucose (mg/dL) Random Glucose 144 H D Calcium 8.3 L Phosphorus 1.9 L Magnesium 2.3 Total Bilirubin 0.7 AST 124 H D ALT 94 H D Alkaline Phosphatase 71 Total Protein 5.8 L Albumin 3.1 L Globulin 2.7 Albumin/Globulin Ratio 1.1 Radiology Impressions: Radiology Impressions Chest X-Ray 04/16/18 06:00 IMPRESSION: Persistent haziness in the left lower lobe which may represent layering effusion. Stable position of support tubes. EKG/Cardiology Studies: Cardiology / EKG Studies 04/16/18 12:30 EKG [ELECTROCARDIOGRAM] DAILY Comment: Mode Of Transportation: Reason For Exam: code heart vasospasm 04/17/18 12:30 EKG [ELECTROCARDIOGRAM] DAILY Comment: Mode Of Transportation: Reason For Exam: code heart vasospasm Critical Care Progress Note - Nutrition Nutrition: Nutrition Category Date Time Status NPO Diet [DIET] Diets 04/13/18 Dinner Active Attending/Attestation - Attestation I have personally seen and examined this patient.: Yes I have fully participated in the care of the patient.: Yes I have reviewed all pertinent clinical information: Yes Notes (Text): Today: Saturday, April 16, 2018 The Patient was seen and examined at the bedside, Medical records reviewed, and management issues were discussed and formulated with the house staff. I have reviewed all the relevant clinical, laboratory, hemodynamic, radiographic data and medications Events reviewed Pain issues, skin care, head of the bed elevation, glycemic control were addressed. Agree with above resident's assessment and treatment plans of care as transcribed in Dr. Luna's note. Critically ill patient is currently intubated and mechanically ventilated in the intensive care unit Patient presentation to emergency room with cardiopulmonary arrest, now status p ost hypothermia protocol and also status post Code heart Cardiac cath revealed clean coronaries Patient was found unresponsive cyanotic, diaphoretic and with frothy secretion He was intubated in the field receive 2 rounds of epi with return of spontaneous circulation Head CT shows diffuse cerebral edema and anoxic injury Continue full vent support for now Multiple discussions with the family including the and son about patient condition, poor prognosis, critical condition, treatment plans and alternatives Patient is DNR now Continue with full vent support frequent neurological evaluation EEG antiseizure medications total critical care time 48 minutes
[2018-04-16] MEDS: Levothyroxine 125 MCG TAB PO SCH (07:26)
--- NOTE | 2018-04-16 07:34 | CP.PCM.PN ---
Subjective - Date & Time of Evaluation Date of Evaluation: 04/16/18 Time of Evaluation: 07:15 - Subjective Subjective: Hospitalist Progress Note Patient was seen and examined at 7:15 AM 04/16/18 with NO family at bedside 43 year old male who was admitted after cardiopulmonary arrest. Anoxic brain injury is suspected. He is currently intubated and on Nimbex, Propofol, Vimpat and Midazolam. Hypothermic protocol was completed 04/15/18. Video EEG was comple patrice and official read is pending. He is on Zosyn and Vancomycin for leukocytosis with Blood Culture 04/13/18 currently negative to date and Urine Cultures 04/13/18 and 04/14/18 showing NO gowth. Son Jer and Patient's met with Palliative Care Nurse Micaela on 04/15/18 and family decided to make patient DNR. Information concerning patient status should be discussed with Son Jer and patient only. Spoke with Nurse Motta caring for patient overnight: Small bowel movement this morning Time of cleaning patient indicated skin to be intact without any ulcerations/breakdown Producing adequate amount of urine Patient was hypotensive yesterday 04/15/18 evening. However he did respond to 2 liter boluses of NS. ROS is not possible due to patient unresponsiveness General: Intubated on vent with NGT, Jerking movements throughout his abdomen and lower legs present intermittently at the time of my exam HEENT: Pupils are now pinpoint and sluggishly reactive to light, NO lymphadenopathy, NO thyromegaly Cardio: NS1 and NS2, NO M/R/G with tachycardia Resp: Breath sounds are clear today 04/16/18 GI: Central Obesity, BS are decreased in all 4 quadrants, Soft Ext: Pulses are strong and equal upper and lower extremities, NO edema, Capillary refill is 2 seconds Neuro: exam is not possible Assessments: 1). Anoxic Brain Injury Status: Acute 2). Acute Respiratory Failure Status: Acute 3). Cardiac Arrest Status: Acute 4). Myoclonic Movements Status: Acute 5). Leukocytosis Status: Acute 6). Hx Hypothyroidism Status: Chronic Yosvany Riddle D.O. [phone] Objective - Vital Signs/Intake and Output Vital Signs (last 24 hours): Temp Pulse Resp BP Pulse Ox 99.8 F H 128 H 19 104/53 L 98 04/16/18 05:20 04/16/18 06:18 04/16/18 06:18 04/16/18 06:18 04/16/18 06:18 Intake and Output: 04/16/18 04/16/18 06:59 18:59 Intake Total 3392.9 Output Total 745 Balance 2647.9 - Medications Medications: Current Medications Acetaminophen (Tylenol 650mg/20.3ml Solution Ud) 650 mg NG Q6 [facility] Stop: 04/16/18 11:00 Last Admin: 04/16/18 05:20 Dose: 650 mg Heparin Sodium (Porcine) (Heparin) 5,000 units SC Q8 [facility] Last Admin: 04/16/18 05:21 Dose: 5,000 units Midazolam HCl 100 mg/ Dextrose 100 mls @ 2 mls/hr IV .Q24H [facility]; Protocol Last Titration: 04/15/18 17:50 Dose: 0.01 mg/kg/hr, 1 mls/hr Cisatracurium Besylate 100 mg/ (Dextrose) 250 mls @ 41.03 mls/hr IV .Q6H6M PRN; Protocol PRN Reason: Seizure activity Last Titration: 04/15/18 23:30 Dose: 1.2 mcg/kg/min, 16.41 mls/hr Piperacillin Sod/Tazobactam (Sod 3.375 gm/ Sodium Chloride) 100 mls @ 200 mls/hr IVPB Q8H [facility]; Protocol Last Admin: 04/16/18 05:21 Dose: 200 mls/hr Levetiracetam 1,500 mg/ (Dextrose) 115 mls @ 420 mls/hr IVPB Q12H [facility] Last Admin: 04/16/18 01:51 Dose: 420 mls/hr Vancomycin/Sodium Chloride (Vancomycin 1 Gm/Ns 200 Ml) 1 gm in 200 mls @ 67 mls/hr IVPB Q12H [facility]; Protocol Stop: 04/18/18 16:01 Last Admin: 04/16/18 03:28 Dose: 67 mls/hr Propofol (Diprivan) 1,000 mg in 100 mls @ 2.735 mls/hr IV .Q24H [facility]; Protocol PRN Reason: TITRATE PER MD ORDER Last Titration: 04/15/18 23:30 Dose: 10 mcg/kg/min, 5.47 mls/hr Sodium Chloride (Sodium Chloride 0.9%) 1,000 mls @ 50 mls/hr IV .Q20H [facility] Last Admin: 04/16/18 02:52 Dose: 50 mls/hr Valproate Sodium 1,000 mg/ (Sodium Chloride) 110 mls @ 100 mls/hr IVPB Q12H [facility] Last Admin: 04/16/18 05:20 Dose: 100 mls/hr Lacosamide 100 mg/ Sodium (Chloride) 60 mls @ 100 mls/hr IVPB Q12H [facility] Last Admin: 04/15/18 20:35 Dose: 100 mls/hr Insulin Aspart (Novolog) 0 unit SC Q6 [facility]; Protocol Last Admin: 04/16/18 07:23 Dose: Not Given Levothyroxine Sodium (Synthroid) 125 mcg PO DAILY@0630 [facility] Last Admin: 04/16/18 07:26 Dose: 125 mcg Pantoprazole Sodium (Protonix Inj) 40 mg IVP DAILY [facility] Last Admin: 04/15/18 10:41 Dose: 40 mg - Labs Labs: 04/16/18 05:52 04/16/18 05:52 PT 13.0 SECONDS (9.7-12.2) H 04/15/18 06:14 INR 1.2 04/15/18 06:14 APTT 28 SECONDS (21-34) 04/15/18 06:14
[2018-04-16] MEDS: SODIUM CHLORIDE 0.9% IVPB SCH ×2 (08:12→19:52)
[2018-04-16] MEDS: LACOSAMIDE IVPB SCH ×2 (08:12→19:52)
[2018-04-16 08:27] LABS: BANDS 1 % (0-2); EOSINOPHIL 2 % (0-4); LYMPHOCYTE 9 % (20-40); MONOCYTE 4 % (0-10); NEUTROPHIL 84 % (50-75); TOTAL CELLS COUNTED 100
[2018-04-16 08:28] LABS: PLATELET ESTIMATE NORMAL (NORMAL)
--- NOTE | 2018-04-16 09:11 | RAD ---
Date of service: 04/16/2018 HISTORY: intubated COMPARISON: 04/15/2018 FINDINGS: Endotracheal tube terminates in the mid trachea. The nasogastric tube terminates in the stomach. LUNGS: The right lung is well inflated and clear. There is mild pulmonary venous congestion. There is diffuse haziness in the left lower lobe. PLEURA: No pleural effusions or pneumothorax. CARDIOVASCULAR: The heart is normal in size. No aortic atherosclerotic calcifications present. OSSEOUS STRUCTURES: Within normal limits for the patient's age. VISUALIZED UPPER ABDOMEN: Normal. OTHER FINDINGS: None. IMPRESSION: Persistent haziness in the left lower lobe which may represent layering effusion. Stable position of support tubes.
[2018-04-16] MEDS: Propofol 10 mg/ml 1,000 MG/100 ML VIAL IV PRN (10:47)
[2018-04-16] MEDS: Midazolam 50 mg/10 ml 100 MG in Dextrose 5% In Water 80 ML IV SCH ×2 (10:48→21:00)
[2018-04-16] MEDS: Cisatracurium Besylate 100 MG in Dextrose 5% In Water 240 ML IV PRN (13:36)
--- NOTE | 2018-04-16 13:36 | CP.PCM.PN ---
Subjective - Date & Time of Evaluation Date of Evaluation: 04/16/18 Time of Evaluation: 13:34 - Subjective Subjective: Neuro Follow-Up: evaluated this afternoon in the ICU with Dr. Snider. Family present; Dr. Snider addressed all concerns and questions that pt's son and had. Pt remains intubated, on sedation. Does not follow commands. ROS unobtainable from pt 2/2 his current status. Objective - Vital Signs/Intake and Output Vital Signs (last 24 hours): Temp Pulse Resp BP Pulse Ox 100.7 F H 107 H 18 105/63 97 04/16/18 11:06 04/16/18 11:18 04/16/18 11:18 04/16/18 11:18 04/16/18 11:18 Intake and Output: 04/16/18 04/16/18 06:59 18:59 Intake Total 3392.9 421.0 Output Total 745 281 Balance 2647.9 140.0 - Medications Medications: Current Medications Heparin Sodium (Porcine) (Heparin) 5,000 units SC Q8 [facility] Last Admin: 04/16/18 05:21 Dose: 5,000 units Midazolam HCl 100 mg/ Dextrose 100 mls @ 2 mls/hr IV .Q24H [facility]; Protocol Last Admin: 04/16/18 10:48 Dose: 0.01 mg/kg/hr, 1 mls/hr Cisatracurium Besylate 100 mg/ (Dextrose) 250 mls @ 41.03 mls/hr IV .Q6H6M PRN; Protocol PRN Reason: Seizure activity Last Titration: 04/16/18 11:41 Dose: 1.2 mcg/kg/min, 16.41 mls/hr Piperacillin Sod/Tazobactam (Sod 3.375 gm/ Sodium Chloride) 100 mls @ 200 mls/hr IVPB Q8H [facility]; Protocol Last Admin: 04/16/18 05:21 Dose: 200 mls/hr Levetiracetam 1,500 mg/ (Dextrose) 115 mls @ 420 mls/hr IVPB Q12H [facility] Last Admin: 04/16/18 01:51 Dose: 420 mls/hr Vancomycin/Sodium Chloride (Vancomycin 1 Gm/Ns 200 Ml) 1 gm in 200 mls @ 67 mls/hr IVPB Q12H [facility]; Protocol Stop: 04/18/18 16:01 Last Admin: 04/16/18 03:28 Dose: 67 mls/hr Propofol (Diprivan) 1,000 mg in 100 mls @ 2.735 mls/hr IV .Q24H [facility]; Protocol PRN Reason: TITRATE PER MD ORDER Last Admin: 04/16/18 10:47 Dose: 10 mcg/kg/min, 5.47 mls/hr Sodium Chloride (Sodium Chloride 0.9%) 1,000 mls @ 50 mls/hr IV .Q20H [facility] Last Admin: 04/16/18 02:52 Dose: 50 mls/hr Valproate Sodium 1,000 mg/ (Sodium Chloride) 110 mls @ 100 mls/hr IVPB Q12H [facility] Last Admin: 04/16/18 05:20 Dose: 100 mls/hr Lacosamide 100 mg/ Sodium (Chloride) 60 mls @ 100 mls/hr IVPB Q12H [facility] Last Admin: 04/16/18 08:12 Dose: 100 mls/hr Insulin Aspart (Novolog) 0 unit SC Q6 [facility]; Protocol Last Admin: 04/16/18 11:42 Dose: Not Given Levothyroxine Sodium (Synthroid) 75 mcg PO DAILY@0630 [facility] Pantoprazole Sodium (Protonix Inj) 40 mg IVP DAILY [facility] Last Admin: 04/16/18 11:06 Dose: 40 mg - Labs Labs: 04/16/18 05:52 04/16/18 05:52 PT 13.0 SECONDS (9.7-12.2) H 04/15/18 06:14 INR 1.2 04/15/18 06:14 APTT 28 SECONDS (21-34) 04/15/18 06:14 - Constitutional Appears: Other (intubated, on sedation, does not follow commands) - Head Exam Head Exam: NORMOCEPHALIC - Eye Exam Additional comments: no corneals no dolls eyes - ENT Exam ENT Exam: Mucous Membranes Moist (intubated) - Neck Exam Neck Exam: Normal Inspection - Respiratory Exam Respiratory Exam: absent: NORMAL BREATHING PATTERN (intubated) - Extremities Exam Additional comments: myoclonic movements noted with suctioning to assess gag reflex - Neurological Exam Neurological Exam: Altered Additional comments: Pt is intubated, on sedation Does not follow commands No spontaneous eye opening noted; no corneals, no dolls eyes Myoclonic movements noted with suctioning to assess gag reflex - Skin Skin Exam: Dry, Warm Assessment and Plan (1) Anoxic brain injury Assessment & Plan: Imaging reviewed: -EEG (04/15/18): This is an abnormal EEG record that demonstrate the presence of severe non specific diffuse disturbance of cortical activity, this is keeping with a diffuse pablo matter dysfunction, these findings are not specific. There were rhythmic muscle artifact seen, most likely mycolonus, this are usually seen in hypoxic brain insults, please correlate clinically. No seizures. Patient is not in status epilepticus -CT head (04/15/18): Extensive diffuse homogeneous appearance of the brain parenc hyma with loss of the corticomedullary distinction and on diminution of cerebral sulci. Findings consistent with sequela diffusehypoxia. -CT head (04/14/18): Little interval change in mild diffuse effacement of cortical sulci and indistinct pablo-white matter differentiation related to hypoxic-anoxic insult with the stated clinical history. -CT head (04/13/18): No acute intracranial hemorrhage. There is mild homogeneous appearance of the brain parenchyma with subtle indistinct appearance of the cor ticomedullary junction. Findings could represent mild diffuse cerebral edema related to hypoxia however clinical correlation suggested. -Continue current treatment. -Dr. Snider spoke with son and pt's at length regarding VEEG findings and poor prognosis. -Notify neuro if there is any acute change in pt's condition. Sharifa Pepper DNP, [employer] Discussed with Dr. Snider Status: Acute
--- NOTE | 2018-04-16 14:19 | CP.PCM.PN ---
Subjective - Date & Time of Evaluation Date of Evaluation: 04/16/18 Time of Evaluation: 10:00 - Subjective Subjective: Nephrology Consultation Note: Assessment: critical transinet oliguria likely hemodynamic resolved Acute kidney injury hypophosphatemia hypokalemia cardio-pulmonary arrest with shock liver and brain edema obesity hypothyroidism opiates + Plan No acute need for renal replacement therapy at this time. Hypertension control with meds as ordered. Maintain hemodynamics stable. Avoid hypotension. Monitor Input/Output, daily weights and renal function with basic metabolic panel cardiology and neuro following supplement lytes as needed. continue with IVF Dose meds/antibiotics for GFR >60 Glycemic control Further work up/management as per primary team Thanks for allowing me to participate in care of your patient. Will follow patient with you. Please call if any Qs. had d/w team and family bedside Dr Noble Miller Office: [phone] Chief Complaint; unable Reason for consult: oliguria HPI: Pt is a 43 M with hx of obesity hypothyroidism was brought with complaints of cardio-pulmonary arrest. s/p CPR and intubation, hypothermia protocol. noted decreased urine output overnigt hence renal consulted no known OTC/herbal meds or NSAIDs Noted recent iodinated contrast exposure as s/p cardiac cath. opiates + ROS: unable to obtain from pt Physical Examination: General Appearance: Comfortable, ill appearing orally intubated Vitals reviewed and noted as below Head; Atraumatic, normocephalic ENT: intubated Neck; supple no lymphadenopathy, no thyromegaly or bruit Lungs: Normal respiratory rate/effort. Breath sounds bilateral equal and clear Heart: Increased rate. s1s2 normal. No rub or gallop. Extremities: no edema. No varicose veins Neurological: Patient is unresponsive sedated Skin: Warm and dry. Normal turgor. No rash. Palpitation: Normal elasticity for age Abdomen: Abdomen is soft. Bowel sounds +. There is no abdominal tenderness, no guarding/rigidity no organomegaly Psych: unable MSK: no joint tenderness or swelling. Digits and nails normal, no deformity : kidney or bladder not palpable. has terry Labs/imaging reviewed. Past medical history, past surgical history, family history, social history, allergy reviewed and noted as below Family hx: no hx of CKD. Rest non-contributory Objective - Vital Signs/Intake and Output Vital Signs (last 24 hours): Temp Pulse Resp BP Pulse Ox 98.7 F 107 H 18 105/63 97 04/16/18 12:06 04/16/18 11:18 04/16/18 11:18 04/16/18 11:18 04/16/18 11:18 Intake and Output: 04/16/18 04/16/18 06:59 18:59 Intake Total 3392.9 439.0 Output Total 745 281 Balance 2647.9 158.0 - Medications Medications: Current Medications Heparin Sodium (Porcine) (Heparin) 5,000 units SC Q8 [facility] Last Admin: 04/16/18 13:34 Dose: 5,000 units Midazolam HCl 100 mg/ Dextrose 100 mls @ 2 mls/hr IV .Q24H [facility]; Protocol Last Admin: 04/16/18 10:48 Dose: 0.01 mg/kg/hr, 1 mls/hr Cisatracurium Besylate 100 mg/ (Dextrose) 250 mls @ 41.03 mls/hr IV .Q6H6M PRN; Protocol PRN Reason: Seizure activity Last Admin: 04/16/18 13:36 Dose: 1.2 mcg/kg/min, 16.41 mls/hr Piperacillin Sod/Tazobactam (Sod 3.375 gm/ Sodium Chloride) 100 mls @ 200 mls/hr IVPB Q8H [facility]; Protocol Last Admin: 04/16/18 13:33 Dose: 200 mls/hr Levetiracetam 1,500 mg/ (Dextrose) 115 mls @ 420 mls/hr IVPB Q12H [facility] Last Admin: 04/16/18 13:33 Dose: 420 mls/hr Vancomycin/Sodium Chloride (Vancomycin 1 Gm/Ns 200 Ml) 1 gm in 200 mls @ 67 mls/hr IVPB Q12H [facility]; Protocol Stop: 04/18/18 16:01 Last Admin: 04/16/18 03:28 Dose: 67 mls/hr Propofol (Diprivan) 1,000 mg in 100 mls @ 2.735 mls/hr IV .Q24H [facility]; Protocol PRN Reason: TITRATE PER MD ORDER Last Admin: 04/16/18 10:47 Dose: 10 mcg/kg/min, 5.47 mls/hr Sodium Chloride (Sodium Chloride 0.9%) 1,000 mls @ 50 mls/hr IV .Q20H [facility] Last Admin: 04/16/18 02:52 Dose: 50 mls/hr Valproate Sodium 1,000 mg/ (Sodium Chloride) 110 mls @ 100 mls/hr IVPB Q12H [facility] Last Admin: 04/16/18 05:20 Dose: 100 mls/hr Lacosamide 100 mg/ Sodium (Chloride) 60 mls @ 100 mls/hr IVPB Q12H [facility] Last Admin: 04/16/18 08:12 Dose: 100 mls/hr Insulin Aspart (Novolog) 0 unit SC Q6 [facility]; Protocol Last Admin: 04/16/18 11:42 Dose: Not Given Levothyroxine Sodium (Synthroid) 75 mcg PO DAILY@0630 [facility] Pantoprazole Sodium (Protonix Inj) 40 mg IVP DAILY [facility] Last Admin: 04/16/18 11:06 Dose: 40 mg - Labs Labs: 04/16/18 05:52 04/16/18 05:52 PT 13.0 SECONDS (9.7-12.2) H 04/15/18 06:14 INR 1.2 04/15/18 06:14 APTT 28 SECONDS (21-34) 04/15/18 06:14
--- NOTE | 2018-04-16 21:54 | CP.PCM.PN ---
Subjective - Date & Time of Evaluation Date of Evaluation: 04/16/18 Time of Evaluation: 16:10 - Subjective Subjective: evaluated this afternoon in the ICU with Dr. Snider. Family present. Pt remains intubated, on sedation. Does not follow commands. ROS unobtainable Objective - Vital Signs/Intake and Output Vital Signs (last 24 hours): Temp Pulse Resp BP Pulse Ox 100.7 F H 107 H 18 105/63 97 04/16/18 11:06 04/16/18 11:18 04/16/18 11:18 04/16/18 11:18 04/16/18 11:18 Intake and Output: 04/16/18 04/16/18 06:59 18:59 Intake Total 3392.9 421.0 Output Total 745 281 Balance 2647.9 140.0 - Medications Medications: Current Medications Heparin Sodium (Porcine) (Heparin) 5,000 units SC Q8 [facility] Last Admin: 04/16/18 05:21 Dose: 5,000 units Midazolam HCl 100 mg/ Dextrose 100 mls @ 2 mls/hr IV .Q24H [facility]; Protocol Last Admin: 04/16/18 10:48 Dose: 0.01 mg/kg/hr, 1 mls/hr Cisatracurium Besylate 100 mg/ (Dextrose) 250 mls @ 41.03 mls/hr IV .Q6H6M PRN; Protocol PRN Reason: Seizure activity Last Titration: 04/16/18 11:41 Dose: 1.2 mcg/kg/min, 16.41 mls/hr Piperacillin Sod/Tazobactam (Sod 3.375 gm/ Sodium Chloride) 100 mls @ 200 mls/hr IVPB Q8H [facility]; Protocol Last Admin: 04/16/18 05:21 Dose: 200 mls/hr Levetiracetam 1,500 mg/ (Dextrose) 115 mls @ 420 mls/hr IVPB Q12H [facility] Last Admin: 04/16/18 01:51 Dose: 420 mls/hr Vancomycin/Sodium Chloride (Vancomycin 1 Gm/Ns 200 Ml) 1 gm in 200 mls @ 67 mls/hr IVPB Q12H [facility]; Protocol Stop: 04/18/18 16:01 Last Admin: 04/16/18 03:28 Dose: 67 mls/hr Propofol (Diprivan) 1,000 mg in 100 mls @ 2.735 mls/hr IV .Q24H [facility]; Protocol PRN Reason: TITRATE PER MD ORDER Last Admin: 04/16/18 10:47 Dose: 10 mcg/kg/min, 5.47 mls/hr Sodium Chloride (Sodium Chloride 0.9%) 1,000 mls @ 50 mls/hr IV .Q20H [facility] Last Admin: 04/16/18 02:52 Dose: 50 mls/hr Valproate Sodium 1,000 mg/ (Sodium Chloride) 110 mls @ 100 mls/hr IVPB Q12H [facility] Last Admin: 04/16/18 05:20 Dose: 100 mls/hr Lacosamide 100 mg/ Sodium (Chloride) 60 mls @ 100 mls/hr IVPB Q12H [facility] Last Admin: 04/16/18 08:12 Dose: 100 mls/hr Insulin Aspart (Novolog) 0 unit SC Q6 [facility]; Protocol Last Admin: 04/16/18 11:42 Dose: Not Given Levothyroxine Sodium (Synthroid) 75 mcg PO DAILY@0630 [facility] Pantoprazole Sodium (Protonix Inj) 40 mg IVP DAILY [facility] Last Admin: 04/16/18 11:06 Dose: 40 mg - Labs Labs: 04/16/18 05:52 04/16/18 05:52 PT 13.0 SECONDS (9.7-12.2) H 04/15/18 06:14 INR 1.2 04/15/18 06:14 APTT 28 SECONDS (21-34) 04/15/18 06:14 - Constitutional Appears: Other (intubated, on sedation, does not follow commands) - Head Exam Head Exam: NORMOCEPHALIC - Eye Exam Additional comments: no corneals no dolls eyes - ENT Exam ENT Exam: Mucous Membranes Moist (intubated) - Neck Exam Neck Exam: Normal Inspection - Respiratory Exam Respiratory Exam: absent: NORMAL BREATHING PATTERN (intubated) - Extremities Exam Additional comments: myoclonic movements noted with suctioning to assess gag reflex - Neurological Exam Neurological Exam: Altered Additional comments: Pt is intubated, on sedation Does not follow commands No spontaneous eye opening noted; no corneals, no dolls eyes Myoclonic movements noted with suctioning to assess gag reflex - Skin Skin Exam: Dry, Warm Assessment and Plan (1) Anoxic brain injury Assessment & Plan: Imaging reviewed: -EEG (04/15/18): This is an abnormal EEG record that demonstrate the presence of severe non specific diffuse disturbance of cortical activity, this is keeping with a diffuse pablo matter dysfunction, these findings are not specific. There were rhythmic muscle artifact seen, most likely mycolonus, this are usually seen in hypoxic brain insults, please correlate clinically. No seizures. Patient is not in status epilepticus -CT head (04/15/18): Extensive diffuse homogeneous appearance of the brain parenchyma with loss of the corticomedullary distinction and on diminution of cerebral sulci. Findings consistent with sequela diffusehypoxia. -CT head (04/14/18): Little interval change in mild diffuse effacement of cortical sulci and indistinct pablo-white matter differentiation related to hypoxic-anoxic insult with the stated clinical history. -CT head (04/13/18): No acute intracranial hemorrhage. There is mild homogeneous appearance of the brain parenchyma with subtle indistinct appearance of the corticomedullary junction. Findings could represent mild diffuse cerebral edema related to hypoxia however clinical correlation suggested. -Continue current treatment. Objective - Vital Signs/Intake and Output Vital Signs (last 24 hours): Temp Pulse Resp BP Pulse Ox 100 F H 112 H 20 127/79 98 04/16/18 20:00 04/16/18 20:18 04/16/18 20:18 04/16/18 20:18 04/16/18 20:18 Intake and Output: 04/16/18 04/17/18 18:59 06:59 Intake Total 1052.6 235.8 Output Total 696 90 Balance 356.6 145.8 - Medications Medications: Current Medications Heparin Sodium (Porcine) (Heparin) 5,000 units SC Q8 [facility] Last Admin: 04/16/18 21:23 Dose: 5,000 units Cisatracurium Besylate 100 mg/ (Dextrose) 250 mls @ 41.03 mls/hr IV .Q6H6M PRN; Protocol PRN Reason: Seizure activity Last Titration: 04/16/18 18:36 Dose: 1.2 mcg/kg/min, 16.41 mls/hr Piperacillin Sod/Tazobactam (Sod 3.375 gm/ Sodium Chloride) 100 mls @ 200 mls/hr IVPB Q8H [facility]; Protocol Last Admin: 04/16/18 21:25 Dose: 200 mls/hr Levetiracetam 1,500 mg/ (Dextrose) 115 mls @ 420 mls/hr IVPB Q12H [facility] Last Admin: 04/16/18 13:33 Dose: 420 mls/hr Vancomycin/Sodium Chloride (Vancomycin 1 Gm/Ns 200 Ml) 1 gm in 200 mls @ 67 mls/hr IVPB Q12H [facility]; Protocol Stop: 04/18/18 16:01 Last Admin: 04/16/18 15:58 Dose: 67 mls/hr Propofol (Diprivan) 1,000 mg in 100 mls @ 2.735 mls/hr IV .Q24H [facility]; Protocol PRN Reason: TITRATE PER MD ORDER Last Admin: 04/16/18 10:47 Dose: 10 mcg/kg/min, 5.47 mls/hr Sodium Chloride (Sodium Chloride 0.9%) 1,000 mls @ 50 mls/hr IV .Q20H [facility] Last Admin: 04/16/18 02:52 Dose: 50 mls/hr Valproate Sodium 1,000 mg/ (Sodium Chloride) 110 mls @ 100 mls/hr IVPB Q12H [facility] Last Admin: 04/16/18 18:50 Dose: 100 mls/hr Lacosamide 100 mg/ Sodium (Chloride) 60 mls @ 100 mls/hr IVPB Q12H [facility] Last Admin: 04/16/18 19:52 Dose: 100 mls/hr Midazolam HCl 100 mg/ Dextrose 100 mls @ 0.92 mls/hr IV .Q24H [facility]; Protocol Last Admin: 04/16/18 21:00 Dose: 0.02 mg/kg/hr, 1.83 mls/hr Insulin Aspart (Novolog) 0 unit SC Q6 [facility]; Protocol Last Admin: 04/16/18 18:33 Dose: Not Given Levothyroxine Sodium (Synthroid) 75 mcg PO DAILY@0630 [facility] Pantoprazole Sodium (Protonix Inj) 40 mg IVP DAILY [facility] Last Admin: 04/16/18 11:06 Dose: 40 mg - Labs Labs: 04/16/18 05:52 04/16/18 05:52 PT 13.0 SECONDS (9.7-12.2) H 04/15/18 06:14 INR 1.2 04/15/18 06:14 APTT 28 SECONDS (21-34) 04/15/18 06:14
[2018-04-17] MEDS: (Novolog) Insulin Aspart, Recombinant 100 u/ml 10 ml vial SC SCH ×4 (00:08→18:04)
[2018-04-17] MEDS: Sodium Chloride 0.9% 1,000 ML IV SCH ×3 (00:08→17:40)
[2018-04-17] MEDS: Propofol 10 mg/ml 1,000 MG/100 ML VIAL IV PRN ×2 (01:02→17:38)
[2018-04-17] MEDS: Vancomycin 1 gm/NS 200 ml 1 GM/200 ML BAG IVPB SCH ×2 (03:08→15:43)
[2018-04-17] MEDS: Valproate 1,000 MG in Sodium Chloride 0.9% 100 ML IVPB SCH ×2 (05:23→17:36)
[2018-04-17] MEDS: Cisatracurium Besylate 100 MG in Dextrose 5% In Water 240 ML IV PRN (05:25)
[2018-04-17] MEDS: Piperacillin/Tazobact 3.375 GM in Sodium Chloride 100 ML IVPB SCH ×3 (05:41→21:40)
[2018-04-17] MEDS: Levothyroxine 75 MCG TAB PO SCH (06:03)
[2018-04-17 06:09] LABS: BASO # 0.1 K/uL (0.0-0.2); BASO % 0.5 % (0.0-2.0); EOS # 0.2 K/uL (0.0-0.7); HEMOGLOBIN 13.2 g/dL (12.0-18.0); LYMPH # 1.5 K/uL (1.0-4.3); LYMPH % 14.7 % (20.0-40.0); MEAN CELL VOLUME 94.2 fL (80.0-94.0); MEAN CORPUSCULAR HEMOGLOBIN 31.6 pg (27.0-31.0); MEAN CORPUSCULAR HGB CONC 33.5 g/dL (33.0-37.0); MONO # 0.5 K/uL (0.0-0.8); MONO % 5.2 % (0.0-10.0); NEUT % 77.6 % (50.0-75.0); NRBC % 0.1 % (0.0-2.0); RBC 4.18 Mil/uL (4.40-5.90); RED CELL DISTRIBUTION WIDTH 13.1 % (11.5-14.5); WHITE BLOOD COUNT 10.3 K/uL (4.8-10.8)
[2018-04-17 06:50] LABS: ALB/GLOB RATIO 1.1 (1.0-2.1); ALBUMIN 3.1 g/dL (3.5-5.0); AST/SGOT 124 U/L (17-59); BLOOD UREA NITROGEN 24 mg/dL (9-20); CALCIUM 8.3 mg/dl (8.6-10.4); GFR NON-AFRICAN AMERICAN > 60
[2018-04-17 06:51] LABS: ALT/SGPT 94 U/L (21-72)
--- NOTE | 2018-04-17 07:04 | CP.CCUPN ---
<LunaDilcias M - Last Filed: 04/17/18 14:32> CCU Subjective - Physician Review Subjective (Free Text): Critical care progress note for Dr. Kidd Patient seen and examined at bedside. Overnight patient had no further seizures. In AM patient had body jerking motion, suggestive of seizures vs myoclonic jerk. Given 2 mg IVP and talked to psych who believe it is myclonic jerk. Myoclonic jerks resolved. Point person for family is patient sonJer, contact # [phone]. 04/16/18 16:29 04/17/18 14:32 CCU Objective - Vital Signs / Intake & Output Vital Signs (Last 4 hours): Vital Signs Temp Pulse Resp BP Pulse Ox 04/17/18 06:00 111 H 20 98 04/17/18 05:56 135/83 04/17/18 04:56 111 H 20 136/83 94 L 04/17/18 04:00 99.6 F 111 H 18 97 04/17/18 03:56 133/80 Intake and Output (Last 8hrs): Intake & Output 04/16/18 04/17/18 04/17/18 22:59 06:59 14:59 Intake Total 970.4 1939.5 Output Total 540 600 Balance 430.4 1339.5 Weight 199 lb 8 oz Intake: IV 64.6 269 Intake, IV Amount 785.8 930.5 L AC #18 100 Left Antecubital 601 650 Left Wrist 44.0 44.0 Left mid-arm 9.6 15.5 Left upper extremity 131.2 121.0 Tube Feeding 120 240 Other 500 Output: Urine 540 600 Urethral (Campuzano) 540 600 Other: # Bowel Movements 0 0 - Physical Exam Head: Positive for: Atraumatic, Normocephalic Mouth: Positive for: Moist Mucous Membranes Respiratory/Chest: Positive for: Other (on ventilator). Negative for: Respiratory Distress, Accessory Muscle Use, Wheezes, Rhonchi Cardiovascular: Positive for: Normal S1, S2 Abdomen: Negative for: Tenderness, Distention Upper Extremity: Positive for: Normal Inspection. Negative for: Edema Lower Extremity: Positive for: Normal Inspection. Negative for: Edema Skin: Positive for: Warm, Dry, Rashes Psychiatric: Positive for: Other (intubated) - Medications Active Medications: Active Medications Generic Name Dose Route Start Last Admin Trade Name Freq PRN Reason Stop Dose Admin Heparin Sodium (Porcine) 5,000 units 04/14/18 14:00 04/17/18 05:22 Heparin SC 5,000 units Q8 ROBERT Administration Cisatracurium Besylate 100 mg/ 250 mls @ 41.03 mls/hr 04/13/18 14:00 04/17/18 05:35 Dextrose IV 0.7 mcg/kg/min .Q6H6M PRN 9.57 mls/hr Seizure activity Titration Protocol 3 MCG/KG/MIN Piperacillin Sod/Tazobactam 100 mls @ 200 mls/hr 04/13/18 14:15 04/17/18 05:41 Sod 3.375 gm/ Sodium Chloride IVPB 200 mls/hr Q8H ROBERT Administration Protocol Levetiracetam 1,500 mg/ 115 mls @ 420 mls/hr 04/13/18 14:30 04/17/18 02:35 Dextrose IVPB 420 mls/hr Q12H ROBERT Administration Vancomycin/Sodium Chloride 1 gm in 200 mls @ 67 mls/hr 04/13/18 16:00 04/17/18 03:08 Vancomycin 1 Gm/Ns 200 Ml IVPB 04/18/18 16:01 67 mls/hr Q12H ROBERT Administration Protocol Propofol 1,000 mg in 100 mls @ 2.735 mls/hr 04/13/18 22:57 04/17/18 01:02 Diprivan IV 10 mcg/kg/min .Q24H PRN 5.47 mls/hr TITRATE PER MD ORDER Administration Protocol 5 MCG/KG/MIN Sodium Chloride 1,000 mls @ 50 mls/hr 04/14/18 10:36 04/17/18 03:30 Sodium Chloride 0.9% IV 50 mls/hr .Q20H ROBERT Administration Valproate Sodium 1,000 mg/ 110 mls @ 100 mls/hr 04/15/18 18:00 04/17/18 05:23 Sodium Chloride IVPB 100 mls/hr Q12H ROBERT Administration Lacosamide 100 mg/ Sodium 60 mls @ 100 mls/hr 04/15/18 20:00 04/16/18 19:52 Chloride IVPB 100 mls/hr Q12H ROBERT Administration Midazolam HCl 100 mg/ Dextrose 100 mls @ 0.92 mls/hr 04/16/18 21:15 04/17/18 03:00 IV 0.03 mg/kg/hr .Q24H ROBERT 2.9 mls/hr Titration Protocol 0.01 MG/KG/HR Insulin Aspart 0 unit 04/17/18 00:00 04/17/18 06:10 Novolog SC Not Given Q6 [facility] Protocol Levothyroxine Sodium 75 mcg 04/17/18 06:30 04/17/18 06:03 Synthroid PO 75 mcg DAILY@0630 ROBERT Administration Pantoprazole Sodium 40 mg 04/14/18 10:00 04/16/18 11:06 Protonix Inj IVP 40 mg DAILY ROBERT Administration - Patient Studies Lab Studies: Microbiology Studies 04/13/18 14:40 Blood Culture - Preliminary Blood NO GROWTH AFTER 3 DAYS 04/13/18 14:30 Blood Culture - Preliminary Blood NO GROWTH AFTER 3 DAYS Lab Studies 04/17/18 04/17/18 04/16/18 Range/Units 06:00 06:00 05:52 WBC 10.3 (4.8-10.8) K/uL RBC 4.18 L (4.40-5.90) Mil/uL Hgb 13.2 (12.0-18.0) g/dL Hct 39.4 (35.0-51.0) % MCV 94.2 H (80.0-94.0) fL MCH 31.6 H (27.0-31.0) pg MCHC 33.5 (33.0-37.0) g/dL RDW 13.1 (11.5-14.5) % Plt Count 162 (130-400) K/uL MPV 8.0 (7.2-11.7) fL Neut % (Auto) 77.6 H (50.0-75.0) % Lymph % (Auto) 14.7 L (20.0-40.0) % Polk % (Auto) 5.2 (0.0-10.0) % Eos % (Auto) 2.0 (0.0-4.0) % Baso % (Auto) 0.5 (0.0-2.0) % Neut # (Auto) 8.0 H (1.8-7.0) K/uL Lymph # (Auto) 1.5 (1.0-4.3) K/uL Polk # (Auto) 0.5 (0.0-0.8) K/uL Eos # (Auto) 0.2 (0.0-0.7) K/uL Baso # (Auto) 0.1 (0.0-0.2) K/uL Neutrophils % (Manual) (50-75) % Band Neutrophils % (0-2) % Lymphocytes % (Manual) (20-40) % Monocytes % (Manual) (0-10) % Eosinophils % (Manual) (0-4) % Platelet Estimate (NORMAL) RBC Morphology Sodium 137 143 (132-148) mmol/L Potassium 4.0 4.1 (3.6-5.2) mmol/L Chloride 108 H 114 H (98-107) mmol/L Carbon Dioxide 27 24 (22-30) mmol/L Anion Gap 6 L 9 L (10-20) BUN 24 H 24 H (9-20) mg/dL Creatinine 0.8 1.0 (0.8-1.5) mg/dL Est GFR ( Amer) > 60 > 60 Est GFR (Non-Af Amer) > 60 > 60 POC Glucose (mg/dL) (65-110) mg/dL Random Glucose 144 H D 119 H (75-110) mg/dL Calcium 8.3 L 7.7 L (8.6-10.4) mg/dl Phosphorus 1.9 L 2.7 (2.5-4.5) mg/dL Magnesium 2.3 2.1 (1.6-2.3) mg/dL Total Bilirubin 0.7 0.7 (0.2-1.3) mg/dL AST 124 H D 99 H (17-59) U/L ALT 94 H D 137 H D (21-72) U/L Alkaline Phosphatase 71 79 (38-126) U/L Total Protein 5.8 L 5.8 L (6.3-8.3) g/dL Albumin 3.1 L 3.3 L (3.5-5.0) g/dL Globulin 2.7 2.5 (2.2-3.9) gm/dL Albumin/Globulin Ratio 1.1 1.3 (1.0-2.1) TSH 3rd Generation 0.06 L (0.46-4.68) mIU/L 04/16/18 04/15/18 Range/Units 05:52 17:59 WBC (4.8-10.8) K/uL RBC (4.40-5.90) Mil/uL Hgb (12.0-18.0) g/dL Hct (35.0-51.0) % MCV (80.0-94.0) fL MCH (27.0-31.0) pg MCHC (33.0-37.0) g/dL RDW (11.5-14.5) % Plt Count (130-400) K/uL MPV (7.2-11.7) fL Neut % (Auto) (50.0-75.0) % Lymph % (Auto) (20.0-40.0) % Polk % (Auto) (0.0-10.0) % Eos % (Auto) (0.0-4.0) % Baso % (Auto) (0.0-2.0) % Neut # (Auto) (1.8-7.0) K/uL Lymph # (Auto) (1.0-4.3) K/uL Polk # (Auto) (0.0-0.8) K/uL Eos # (Auto) (0.0-0.7) K/uL Baso # (Auto) (0.0-0.2) K/uL Neutrophils % (Manual) 84 H (50-75) % Band Neutrophils % 1 (0-2) % Lymphocytes % (Manual) 9 L (20-40) % Monocytes % (Manual) 4 (0-10) % Eosinophils % (Manual) 2 (0-4) % Platelet Estimate Normal (NORMAL) RBC Morphology Normal Sodium (132-148) mmol/L Potassium (3.6-5.2) mmol/L Chloride (98-107) mmol/L Carbon Dioxide (22-30) mmol/L Anion Gap (10-20) BUN (9-20) mg/dL Creatinine (0.8-1.5) mg/dL Est GFR ( Amer) Est GFR (Non-Af Amer) POC Glucose (mg/dL) 143 H (65-110) mg/dL Random Glucose (75-110) mg/dL Calcium (8.6-10.4) mg/dl Phosphorus (2.5-4.5) mg/dL Magnesium (1.6-2.3) mg/dL Total Bilirubin (0.2-1.3) mg/dL AST (17-59) U/L ALT (21-72) U/L Alkaline Phosphatase (38-126) U/L Total Protein (6.3-8.3) g/dL Albumin (3.5-5.0) g/dL Globulin (2.2-3.9) gm/dL Albumin/Globulin Ratio (1.0-2.1) TSH 3rd Generation (0.46-4.68) mIU/L Laboratory Results - last 24 hr 04/15/18 04/16/18 04/16/18 17:59 05:52 05:52 WBC RBC Hgb Hct MCV MCH MCHC RDW Plt Count MPV Neut % (Auto) Lymph % (Auto) Polk % (Auto) Eos % (Auto) Baso % (Auto) Neut # (Auto) Lymph # (Auto) Polk # (Auto) Eos # (Auto) Baso # (Auto) Neutrophils % (Manual) 84 H Band Neutrophils % 1 Lymphocytes % (Manual) 9 L Monocytes % (Manual) 4 Eosinophils % (Manual) 2 Platelet Estimate Normal RBC Morphology Normal Sodium 143 Potassium 4.1 Chloride 114 H Carbon Dioxide 24 Anion Gap 9 L BUN 24 H Creatinine 1.0 Est GFR ( Amer) > 60 Est GFR (Non-Af Amer) > 60 POC Glucose (mg/dL) 143 H Random Glucose 119 H Calcium 7.7 L Phosphorus 2.7 Magnesium 2.1 Total Bilirubin 0.7 AST 99 H ALT 137 H D Alkaline Phosphatase 79 Total Protein 5.8 L Albumin 3.3 L Globulin 2.5 Albumin/Globulin Ratio 1.3 TSH 3rd Generation 0.06 L 04/17/18 04/17/18 06:00 06:00 WBC 10.3 RBC 4.18 L Hgb 13.2 Hct 39.4 MCV 94.2 H MCH 31.6 H MCHC 33.5 RDW 13.1 Plt Count 162 MPV 8.0 Neut % (Auto) 77.6 H Lymph % (Auto) 14.7 L Polk % (Auto) 5.2 Eos % (Auto) 2.0 Baso % (Auto) 0.5 Neut # (Auto) 8.0 H Lymph # (Auto) 1.5 Polk # (Auto) 0.5 Eos # (Auto) 0.2 Baso # (Auto) 0.1 Neutrophils % (Manual) Band Neutrophils % Lymphocytes % (Manual) Monocytes % (Manual) Eosinophils % (Manual) Platelet Estimate RBC Morphology Sodium 137 Potassium 4.0 Chloride 108 H Carbon Dioxide 27 Anion Gap 6 L BUN 24 H Creatinine 0.8 Est GFR ( Amer) > 60 Est GFR (Non-Af Amer) > 60 POC Glucose (mg/dL) Random Glucose 144 H D Calcium 8.3 L Phosphorus 1.9 L Magnesium 2.3 Total Bilirubin 0.7 AST 124 H D ALT 94 H D Alkaline Phosphatase 71 Total Protein 5.8 L Albumin 3.1 L Globulin 2.7 Albumin/Globulin Ratio 1.1 TSH 3rd Generation Radiology Impressions: Radiology Impressions Chest X-Ray 04/16/18 06:00 IMPRESSION: Persistent haziness in the left lower lobe which may represent layering effusion. Stable position of support tubes. EKG/Cardiology Studies: Cardiology / EKG Studies 04/16/18 12:30 EKG [ELECTROCARDIOGRAM] DAILY Comment: Mode Of Transportation: Reason For Exam: code heart vasospasm 04/17/18 12:30 EKG [ELECTROCARDIOGRAM] DAILY Comment: Mode Of Transportation: Reason For Exam: code heart vasospasm Fingerstick Blood Sugar Results: 132 Review of Systems - Review of Systems Systems not reviewed;Unavailable: Intubated Critical Care Progress Note - Ventilator Checklist Head of Bed 30 Degrees: Yes Daily Sedation Vacation: Yes Daily Assessment of Readiness to Wean: Yes Daily Spontaneous Breathing Trial: Yes PUD Prophalyxis: Yes DVT Prophylaxis: Yes Oral Care with Chlorhexidine Gluconate {CHG}: Yes - Vent Settings MODE:: PRVC TIDAL VOLUME:: 500 RESP RATE:: 16 FIO2:: 60 PEEP:: 5 - Extremities/Vascular Does the Patient have a Central Venous Catheter?: No Does the Patient need a Central Venous Catheter?: No Does the Patient have a Campuzano Catheter?: Yes Does the Patient need a Campuzano Catheter?: Yes - Prophylaxis GI Prophylaxis GI: PPI - Prophylaxis DVT Prophylaxis DVT: Heparin SQ - Nutrition Nutrition: Nutrition Category Date Time Status NPO Diet [DIET] Diets 04/13/18 Dinner Active Assessment/Plan - Assessment and Plan (Free Text) Assessment: 43M w/ pmhx of hypothyrodism, found unresponsive in parking lot in cardiac arrest, cardiac cath shows clean arteries, hypothermic protocol completed, monitoring neurological status. Patient likely has poor prognosis. Patient in status epilepicus on triple anti-epileptic medication per neuro 1) Anoxic brain injury 2) Acute respiratory failure 3) Cardiac arrest 4) Status epilepticus Plan: Neuro - intubated - on versed drip & propofol drip - video EEG indicative of status epileptics - Per neuro - kepra 1500 Q12H - vimpat 100 mg Q12H - depakote 1000mg Q12H - CT indicative of edema; repeat CT: diffuse homogenous appearance of brain parenchyma w/ loss of the coritcomedullary distinction - cisatracurium for myclonic jerks Cardio - vitals stable - clean coronary arteries - EF 65% - continue to monitor Resp - on ventilator - vent settings 18/60/500/5 - continue to monitor Renal - BUN/Cr wnl - NS 50 cc/hr GI - Jevity 1.5 initial 20 ml/hr, goal to 50, increase by 5 - stop free water flushes Heme - Stable H/H - elevated WBC - negative cultures to date - ?sepsis - vancomycin & zosyn Endo - hx of hypothyrodism - TSH initially 0.06 - decrease levothyroxine to 75 mcg PO daily - F/u TSH/FreeT4 PPx; - GI: protonix - DVT: heparin SC, SCds <Latef,David M - Last Filed: 04/17/18 18:07> CCU Objective - Vital Signs / Intake & Output Vital Signs (Last 4 hours): Vital Signs Temp Pulse Resp BP Pulse Ox 04/17/18 17:00 127 H 27 H 99 04/17/18 16:56 120 H 21 145/83 99 04/17/18 16:00 98.5 F 132 H 27 H 99 04/17/18 15:56 129 H 27 H 141/89 99 04/17/18 15:00 123 H 21 97 04/17/18 14:56 130 H 27 H 147/88 98 Intake and Output (Last 8hrs): Intake & Output 04/17/18 04/17/18 04/17/18 06:59 14:59 22:59 Intake Total 1939.5 1344.0 834.0 Output Total 600 540 315 Balance 1339.5 804.0 519.0 Weight 199 lb 8 oz Intake: IV 269 100 Intake, IV Amount 930.5 744.0 554.0 L AC #18 100 600 350 Left Antecubital 650 Left Wrist 44.0 44.0 16.5 Left mid-arm 15.5 23.2 0 Left mid-arm side port 76.8 0 Left upper extremity 121.0 Right Arm PICC blue port 37.5 Right Arm PICC red port 150 Oral 210 30 Tube Feeding 240 390 150 Other 500 Output: Urine 600 540 315 Urethral (Campuzano) 600 540 315 Other: # Bowel Movements 0 0 0 - Medications Active Medications: Active Medications Generic Name Dose Route Start Last Admin Trade Name Freq PRN Reason Stop Dose Admin Heparin Sodium (Porcine) 5,000 units 04/14/18 14:00 04/17/18 13:36 Heparin SC 5,000 units Q8 ROBERT Administration Cisatracurium Besylate 100 mg/ 250 mls @ 41.03 mls/hr 04/13/18 14:00 04/17/18 05:35 Dextrose IV 0.7 mcg/kg/min .Q6H6M PRN 9.57 mls/hr Seizure activity Titration Protocol 3 MCG/KG/MIN Piperacillin Sod/Tazobactam 100 mls @ 200 mls/hr 04/13/18 14:15 04/17/18 13:36 Sod 3.375 gm/ Sodium Chloride IVPB 200 mls/hr Q8H ROBERT Administration Protocol Levetiracetam 1,500 mg/ 115 mls @ 420 mls/hr 04/13/18 14:30 04/17/18 13:36 Dextrose IVPB 420 mls/hr Q12H ROBERT Administration Vancomycin/Sodium Chloride 1 gm in 200 mls @ 67 mls/hr 04/13/18 16:00 04/17/18 15:43 Vancomycin 1 Gm/Ns 200 Ml IVPB 04/18/18 16:01 67 mls/hr Q12H ROBERT Administration Protocol Propofol 1,000 mg in 100 mls @ 2.735 mls/hr 04/13/18 22:57 04/17/18 17:38 Diprivan IV 10 mcg/kg/min .Q24H PRN 5.47 mls/hr TITRATE PER MD ORDER Administration Protocol 5 MCG/KG/MIN Sodium Chloride 1,000 mls @ 50 mls/hr 04/14/18 10:36 04/17/18 17:40 Sodium Chloride 0.9% IV Not Given .Q20H ROBERT Valproate Sodium 1,000 mg/ 110 mls @ 100 mls/hr 04/15/18 18:00 04/17/18 17:36 Sodium Chloride IVPB 100 mls/hr Q12H ROBERT Administration Lacosamide 100 mg/ Sodium 60 mls @ 100 mls/hr 04/15/18 20:00 04/17/18 08:55 Chloride IVPB 100 mls/hr Q12H ROBERT Administration Midazolam HCl 100 mg/ Dextrose 100 mls @ 0.92 mls/hr 04/16/18 21:15 04/17/18 03:00 IV 0.03 mg/kg/hr .Q24H ROBERT 2.9 mls/hr Titration Protocol 0.01 MG/KG/HR Sodium Phosphate 15 mmole/ 255 mls @ 50 mls/hr 04/17/18 14:15 04/17/18 14:22 Sodium Chloride IVPB 04/17/18 19:20 50 mls/hr .Q5H6M ONE Administration Insulin Aspart 0 unit 04/17/18 00:00 04/17/18 12:28 Novolog SC Not Given Q6 [facility] Protocol Levothyroxine Sodium 75 mcg 04/17/18 06:30 04/17/18 06:03 Synthroid PO 75 mcg DAILY@0630 ROBERT Administration Lorazepam 1 mg 04/17/18 17:30 Ativan IVP Q4H PRN Seizure activity Pantoprazole Sodium 40 mg 04/14/18 10:00 04/17/18 09:08 Protonix Inj IVP 40 mg DAILY ROBERT Administration Potassium Phos/Sodium Phos 1 pkt 04/17/18 10:00 04/17/18 17:39 Neutra-Phos NG 04/20/18 10:01 Not Given TID ROBERT - Patient Studies Lab Studies: Microbiology Studies 04/13/18 14:40 Blood Culture - Preliminary Blood NO GROWTH AFTER 4 DAYS 04/13/18 14:30 Blood Culture - Preliminary Blood NO GROWTH AFTER 4 DAYS Lab Studies 04/17/18 04/17/18 04/17/18 Range/Units 15:10 06:00 06:00 WBC 10.3 (4.8-10.8) K/uL RBC 4.18 L (4.40-5.90) Mil/uL Hgb 13.2 (12.0-18.0) g/dL Hct 39.4 (35.0-51.0) % MCV 94.2 H (80.0-94.0) fL MCH 31.6 H (27.0-31.0) pg MCHC 33.5 (33.0-37.0) g/dL RDW 13.1 (11.5-14.5) % Plt Count 162 (130-400) K/uL MPV 8.0 (7.2-11.7) fL Neut % (Auto) 77.6 H (50.0-75.0) % Lymph % (Auto) 14.7 L (20.0-40.0) % Polk % (Auto) 5.2 (0.0-10.0) % Eos % (Auto) 2.0 (0.0-4.0) % Baso % (Auto) 0.5 (0.0-2.0) % Neut # (Auto) 8.0 H (1.8-7.0) K/uL Lymph # (Auto) 1.5 (1.0-4.3) K/uL Polk # (Auto) 0.5 (0.0-0.8) K/uL Eos # (Auto) 0.2 (0.0-0.7) K/uL Baso # (Auto) 0.1 (0.0-0.2) K/uL Sodium 137 (132-148) mmol/L Potassium 4.0 (3.6-5.2) mmol/L Chloride 108 H (98-107) mmol/L Carbon Dioxide 27 (22-30) mmol/L Anion Gap 6 L (10-20) BUN 24 H (9-20) mg/dL Creatinine 0.8 (0.8-1.5) mg/dL Est GFR ( Amer) > 60 Est GFR (Non-Af Amer) > 60 Random Glucose 144 H D (75-110) mg/dL Calcium 8.3 L (8.6-10.4) mg/dl Phosphorus 1.9 L (2.5-4.5) mg/dL Magnesium 2.3 (1.6-2.3) mg/dL Total Bilirubin 0.7 (0.2-1.3) mg/dL AST 124 H D (17-59) U/L ALT 94 H D (21-72) U/L Alkaline Phosphatase 71 (38-126) U/L Total Protein 5.8 L (6.3-8.3) g/dL Albumin 3.1 L (3.5-5.0) g/dL Globulin 2.7 (2.2-3.9) gm/dL Albumin/Globulin Ratio 1.1 (1.0-2.1) Vancomycin Trough 5.5 (5.0-10.0) ug/mL Laboratory Results - last 24 hr 04/17/18 04/17/18 04/17/18 06:00 06:00 15:10 WBC 10.3 RBC 4.18 L Hgb 13.2 Hct 39.4 MCV 94.2 H MCH 31.6 H MCHC 33.5 RDW 13.1 Plt Count 162 MPV 8.0 Neut % (Auto) 77.6 H Lymph % (Auto) 14.7 L Polk % (Auto) 5.2 Eos % (Auto) 2.0 Baso % (Auto) 0.5 Neut # (Auto) 8.0 H Lymph # (Auto) 1.5 Polk # (Auto) 0.5 Eos # (Auto) 0.2 Baso # (Auto) 0.1 Sodium 137 Potassium 4.0 Chloride 108 H Carbon Dioxide 27 Anion Gap 6 L BUN 24 H Creatinine 0.8 Est GFR ( Amer) > 60 Est GFR (Non-Af Amer) > 60 Random Glucose 144 H D Calcium 8.3 L Phosphorus 1.9 L Magnesium 2.3 Total Bilirubin 0.7 AST 124 H D ALT 94 H D Alkaline Phosphatase 71 Total Protein 5.8 L Albumin 3.1 L Globulin 2.7 Albumin/Globulin Ratio 1.1 Vancomycin Trough 5.5 Radiology Impressions: Radiology Impressions Chest X-Ray 04/17/18 06:00 IMPRESSION: Mild venous congestion. Small left pleural effusion and/or consolidation. Endotracheal tube and nasogastric tube. Chest X-Ray 04/17/18 12:01 IMPRESSION: Support lines and tubes as above. Bibasilar atelectasis and/or infiltrates with bilateral effusions left larger than right. Central pulmonary vasculature appears slightly less congested. EKG/Cardiology Studies: Cardiology / EKG Studies 04/17/18 12:30 EKG [ELECTROCARDIOGRAM] DAILY Comment: Mode Of Transportation: Reason For Exam: code heart vasospasm Critical Care Progress Note - Nutrition Nutrition: Nutrition Category Date Time Status NPO Diet [DIET] Diets 04/13/18 Dinner Active Attending/Attestation - Attestation I have personally seen and examined this patient.: Yes I have fully participated in the care of the patient.: Yes I have reviewed all pertinent clinical information: Yes Notes (Text): 04/17/18 18:00 Today: April The Patient was seen and examined at the bedside, Medical records reviewed, and management issues were discussed and formulated with the house staff. I have reviewed all the relevant clinical, laboratory, hemodynamic, radiographic data and medications Events reviewed Pain issues, skin care, head of the bed elevation, glycemic control were addressed. Agree with above resident's assessment and treatment plans of care as transcribed in Dr. Luna's note. Patient remains unresponsive, no neurological improvement so far Active Seizure which proven to be difficult to control, patient on several antiseizure medication plus continous sedation and neuromuscular paralysis with Nimbex Despite that he continues to have intermittent seizure activities/myoclonus jerks throughout the day that requiring several doses of intravenous Ativan Continue frequent neuro checks Continue hemodynamic and cardiac monitoring Multiple discussion with the family at the bedside performed the family is up-to-date with the current plans and they are in agreement Prognosis very Poor patient is currently DNR Total critical care time 43 minutes
--- NOTE | 2018-04-17 07:35 | CP.PCM.PN ---
Subjective - Date & Time of Evaluation Date of Evaluation: 04/17/18 Time of Evaluation: 07:15 - Subjective Subjective: Hospitalist Progress Note Patient was seen and examined at 7:15 AM 04/17/18 with NO family at bedside at time of exam. 43 year old male who was admitted after cardiopulmonary arrest. Anoxic brain injury is suspected. He is currently intubated and on Nimbex, Propofol, Vimpat and Midazolam. Hypothermic protocol was completed 04/15/18. Video EEG was completed and official read is pending. He is on Zosyn and Vancomycin for leukocytosis with Blood Culture 04/13/18 currently negative to date and Urine Cultures 04/13/18 and 04/14/18 showing NO gowth. Son Jer and Patient's met with Palliative Care Nurse Micaela on 04/15/18 and family decided to make patient DNR. Information concerning patient status should be discussed with Son Jer and patient only. Spoke with Nurse Jennifer caring for patient overnight: Time of cleaning patient indicated skin to be intact without any ulcerations/breakdown Producing adequate amount of urine NO bowel movement over night Fever of 100 F at 8 PM 04/16/18 Daily EKGs have been discontinued Free Water 250 ml flushes have been discontinued due declining (although normal) Na Bilateral SCDs ordered as NO edema of the lower extremities noted Vancomycin Trough ordered for 3:30 PM today (30 minutes PRIOR to 4 PM dose) He is on Jevity 40 ml/hr via OGT Chest X Ray 04/16/18: persistent haziness in the left lower lobe which may represent layering effusion, stable position of support tubes The following studies have been performed: 1). EEG (04/15/18): This is an abnormal EEG record that demonstrate the presence of severe non specific diffuse disturbance of cortical activity, this is keeping with a diffuse pablo matter dysfunction, these findings are not specific. There were rhythmic muscle artifact seen, most likely mycolonus, this are usually seen in hypoxic brain insults, please correlate clinically. No seizures. Patient is not in status epilepticus 2). CT head (04/15/18): Extensive diffuse homogeneous appearance of the brain parenchyma with loss of the cortico-medullary distinction and on diminution of cerebral sulci. Findings consistent with sequela diffuse hypoxia. 3). CT head (04/14/18): Little interval change in mild diffuse effacement of cortical sulci and indistinct pablo-white matter differentiation related to hypoxic-anoxic insult with the stated clinical history. 4). CT head (04/13/18): No acute intracranial hemorrhage. There is mild homogeneous appearance of the brain parenchyma with subtle indistinct appearance of the cortico-medullary junction. Findings could represent mild diffuse cerebral edema related to hypoxia however clinical correlation suggested. Neurology Dr. Snider is on board and has informed Son Jer and of poor prognosis He is on the following medications: Cisatracurium 100 mg Q6H PRN Lacosamide 100 mg IV Q12H Levetiracetam 1,5000 mg IV Q12H Midazolam 100 mg IV Q24H Propofol Drip Valproate 1,000 mg IV Q12H Zosyn 3.375 gm IV Q8H Vancomycin 1 gm IV Q24H Levothyroxine 75 mcg via OGT 1x/day Protonix 40 mg IV Q24H Heparin 5,000 Units SC Q8H Aspart ISS Q6H Jevity @ 40 ml/hr NS @ 50 ml/hr ROS is not possible due to patient unresponsiveness General: Intubated on vent with NGT, Jerking movements throughout his abdomen and lower legs present intermittently at the time of my exam HEENT: Pupils are now pinpoint and sluggishly reactive to light, NO lymphadenopathy, NO thyromegaly Cardio: NS1 and NS2, NO M/R/G with tachycardia Resp: Breath sounds are clear today 04/16/18 GI: Central Obesity, BS are decreased in all 4 quadrants, Soft Ext: Pulses are strong and equal upper and lower extremities, NO edema, Capillary refill is 2 seconds Neuro: exam is not possible Assessments: 1). Anoxic Brain Injury Status: Acute 2). Acute Respiratory Failure Status: Acute 3). Cardiac Arrest Status: Acute 4). Myoclonic Movements Status: Acute 5). Leukocytosis Status: Acute 6). Hx Hypothyroidism Status: Chronic Yosvany Riddle D.O. [phone] Objective - Vital Signs/Intake and Output Vital Signs (last 24 hours): Temp Pulse Resp BP Pulse Ox 99.6 F 111 H 20 135/83 98 04/17/18 04:00 04/17/18 06:00 04/17/18 06:00 04/17/18 05:56 04/17/18 06:00 Intake and Output: 04/17/18 04/17/18 06:59 18:59 Intake Total 2412.7 Output Total 770 Balance 1642.7 - Medications Medications: Current Medications Heparin Sodium (Porcine) (Heparin) 5,000 units SC Q8 [facility] Last Admin: 04/17/18 05:22 Dose: 5,000 units Cisatracurium Besylate 100 mg/ (Dextrose) 250 mls @ 41.03 mls/hr IV .Q6H6M PRN; Protocol PRN Reason: Seizure activity Last Titration: 04/17/18 05:35 Dose: 0.7 mcg/kg/min, 9.57 mls/hr Piperacillin Sod/Tazobactam (Sod 3.375 gm/ Sodium Chloride) 100 mls @ 200 mls/hr IVPB Q8H [facility]; Protocol Last Admin: 04/17/18 05:41 Dose: 200 mls/hr Levetiracetam 1,500 mg/ (Dextrose) 115 mls @ 420 mls/hr IVPB Q12H [facility] Last Admin: 04/17/18 02:35 Dose: 420 mls/hr Vancomycin/Sodium Chloride (Vancomycin 1 Gm/Ns 200 Ml) 1 gm in 200 mls @ 67 mls/hr IVPB Q12H [facility]; Protocol Stop: 04/18/18 16:01 Last Admin: 04/17/18 03:08 Dose: 67 mls/hr Propofol (Diprivan) 1,000 mg in 100 mls @ 2.735 mls/hr IV .Q24H PRN; Protocol PRN Reason: TITRATE PER MD ORDER Last Admin: 04/17/18 01:02 Dose: 10 mcg/kg/min, 5.47 mls/hr Sodium Chloride (Sodium Chloride 0.9%) 1,000 mls @ 50 mls/hr IV .Q20H [facility] Last Admin: 04/17/18 03:30 Dose: 50 mls/hr Valproate Sodium 1,000 mg/ (Sodium Chloride) 110 mls @ 100 mls/hr IVPB Q12H [facility] Last Admin: 04/17/18 05:23 Dose: 100 mls/hr Lacosamide 100 mg/ Sodium (Chloride) 60 mls @ 100 mls/hr IVPB Q12H [facility] Last Admin: 04/16/18 19:52 Dose: 100 mls/hr Midazolam HCl 100 mg/ Dextrose 100 mls @ 0.92 mls/hr IV .Q24H [facility]; Protocol Last Titration: 04/17/18 03:00 Dose: 0.03 mg/kg/hr, 2.9 mls/hr Insulin Aspart (Novolog) 0 unit SC Q6 [facility]; Protocol Last Admin: 04/17/18 06:10 Dose: Not Given Levothyroxine Sodium (Synthroid) 75 mcg PO DAILY@0630 [facility] Last Admin: 04/17/18 06:03 Dose: 75 mcg Pantoprazole Sodium (Protonix Inj) 40 mg IVP DAILY [facility] Last Admin: 04/16/18 11:06 Dose: 40 mg - Labs Labs: 04/17/18 06:00 04/17/18 06:00 PT 13.0 SECONDS (9.7-12.2) H 04/15/18 06:14 INR 1.2 04/15/18 06:14 APTT 28 SECONDS (21-34) 04/15/18 06:14
[2018-04-17] MEDS: SODIUM CHLORIDE 0.9% IVPB SCH ×2 (08:55→21:00)
[2018-04-17] MEDS: LACOSAMIDE IVPB SCH ×2 (08:55→21:00)
[2018-04-17] MEDS: Potassium & Sodium Phosphate NG SCH ×3 (09:08→17:39)
--- NOTE | 2018-04-17 11:15 | RAD ---
HISTORY: Intubated. COMPARISON: Chest x-ray performed 04/16/18 TECHNIQUE: Chest, one view. FINDINGS: ET tube. NG tube. LUNGS: Mild venous congestion. Small left pleural effusion and/or consolidation. No definite pneumothorax. CARDIOVASCULAR: Heart size appears top normal. Ectatic aorta. OSSEOUS STRUCTURES: No acute osseous abnormality identified. VISUALIZED UPPER ABDOMEN: Unremarkable. OTHER FINDINGS: None. IMPRESSION: Mild venous congestion. Small left pleural effusion and/or consolidation. Endotracheal tube and nasogastric tube.
--- NOTE | 2018-04-17 12:56 | RAD ---
Date of service: 04/17/2018 HISTORY: Post PICC line insertion COMPARISON: Comparison made with chest radiograph 04/17/2018. FINDINGS: In situ right-sided PICC line with tip in the SVC/RA junction. In situ ETT, tip of which lies approximately 4.35 cm above alan. NGT is present,, tip of which lies well below EG junction disc to the left of midline mid abdomen. LUNGS: Mild bibasilar atelectasis and/or infiltrates with bilateral effusions left larger than right. Central pulmonary vasculature appears slightly less congested PLEURA: As above. No pneumothorax apparent. CARDIOVASCULAR: No aortic atherosclerotic calcification present. Cardiac silhouette unchanged OSSEOUS STRUCTURES: No significant abnormalities. VISUALIZED UPPER ABDOMEN: Normal. OTHER FINDINGS: None. IMPRESSION: Support lines and tubes as above. Bibasilar atelectasis and/or infiltrates with bilateral effusions left larger than right. Central pulmonary vasculature appears slightly less congested.
[2018-04-17] MEDS ORDERED: Sodium Phosphate 15 MMOLE in Sodium Chloride 0.9% 250 ML IVPB ONE (14:15)
--- NOTE | 2018-04-17 14:53 | CP.PCM.PN ---
Subjective - Date & Time of Evaluation Date of Evaluation: 04/17/18 Time of Evaluation: 14:53 - Subjective Subjective: Nephrology Consultation Note: Assessment: critical transinet oliguria likely hemodynamic resolved Acute kidney injury hypophosphatemia hypokalemia cardio-pulmonary arrest with shock liver and brain edema obesity hypothyroidism opiates + Plan No acute need for renal replacement therapy at this time. Hypertension control with meds as ordered. Maintain hemodynamics stable. Avoid hypotension. Monitor Input/Output, daily weights and renal function with basic metabolic panel cardiology and neuro following supplement lytes as needed. continue with IVF Dose meds/antibiotics for GFR >60 Glycemic control Further work up/management as per primary team Thanks for allowing me to participate in care of your patient. Will follow patient with you. Please call if any Qs. had d/w team and family bedside Dr Noble Miller Office: [phone] Chief Complaint; unable Reason for consult: oliguria HPI: Pt is a 43 M with hx of obesity hypothyroidism was brought with complaints of cardio-pulmonary arrest. s/p CPR and intubation, hypothermia protocol. noted decreased urine output overnigt hence renal consulted no known OTC/herbal meds or NSAIDs Noted recent iodinated contrast exposure as s/p cardiac cath. opiates + ROS: unable to obtain from pt Physical Examination: General Appearance: Comfortable, ill appearing orally intubated Vitals reviewed and noted as below Head; Atraumatic, normocephalic ENT: intubated Neck; supple no lymphadenopathy, no thyromegaly or bruit Lungs: Normal respiratory rate/effort. Breath sounds bilateral equal and clear Heart: Increased rate. s1s2 normal. No rub or gallop. Extremities: no edema. No varicose veins Neurological: Patient is unresponsive sedated Skin: Warm and dry. Normal turgor. No rash. Palpitation: Normal elasticity for age Abdomen: Abdomen is soft. Bowel sounds +. There is no abdominal tenderness, no guarding/rigidity no organomegaly Psych: unable MSK: no joint tenderness or swelling. Digits and nails normal, no deformity : kidney or bladder not palpable. has terry Labs/imaging reviewed. Past medical history, past surgical history, family history, social history, allergy reviewed and noted as below Family hx: no hx of CKD. Rest non-contributory Objective - Vital Signs/Intake and Output Vital Signs (last 24 hours): Temp Pulse Resp BP Pulse Ox 98.7 F 115 H 20 166/99 H 98 04/17/18 12:00 04/17/18 14:00 04/17/18 14:00 04/17/18 13:56 04/17/18 14:00 Intake and Output: 04/17/18 04/17/18 06:59 18:59 Intake Total 2412.7 1344.0 Output Total 770 540 Balance 1642.7 804.0 - Medications Medications: Current Medications Heparin Sodium (Porcine) (Heparin) 5,000 units SC Q8 [facility] Last Admin: 04/17/18 13:36 Dose: 5,000 units Cisatracurium Besylate 100 mg/ (Dextrose) 250 mls @ 41.03 mls/hr IV .Q6H6M PRN; Protocol PRN Reason: Seizure activity Last Titration: 04/17/18 05:35 Dose: 0.7 mcg/kg/min, 9.57 mls/hr Piperacillin Sod/Tazobactam (Sod 3.375 gm/ Sodium Chloride) 100 mls @ 200 mls/hr IVPB Q8H [facility]; Protocol Last Admin: 04/17/18 13:36 Dose: 200 mls/hr Levetiracetam 1,500 mg/ (Dextrose) 115 mls @ 420 mls/hr IVPB Q12H [facility] Last Admin: 04/17/18 13:36 Dose: 420 mls/hr Vancomycin/Sodium Chloride (Vancomycin 1 Gm/Ns 200 Ml) 1 gm in 200 mls @ 67 mls/hr IVPB Q12H [facility]; Protocol Stop: 04/18/18 16:01 Last Admin: 04/17/18 03:08 Dose: 67 mls/hr Propofol (Diprivan) 1,000 mg in 100 mls @ 2.735 mls/hr IV .Q24H PRN; Protocol PRN Reason: TITRATE PER MD ORDER Last Admin: 04/17/18 01:02 Dose: 10 mcg/kg/min, 5.47 mls/hr Sodium Chloride (Sodium Chloride 0.9%) 1,000 mls @ 50 mls/hr IV .Q20H [facility] Last Admin: 04/17/18 03:30 Dose: 50 mls/hr Valproate Sodium 1,000 mg/ (Sodium Chloride) 110 mls @ 100 mls/hr IVPB Q12H [facility] Last Admin: 04/17/18 05:23 Dose: 100 mls/hr Lacosamide 100 mg/ Sodium (Chloride) 60 mls @ 100 mls/hr IVPB Q12H [facility] Last Admin: 04/17/18 08:55 Dose: 100 mls/hr Midazolam HCl 100 mg/ Dextrose 100 mls @ 0.92 mls/hr IV .Q24H [facility]; Protocol Last Titration: 04/17/18 03:00 Dose: 0.03 mg/kg/hr, 2.9 mls/hr Sodium Phosphate 15 mmole/ (Sodium Chloride) 255 mls @ 50 mls/hr IVPB .Q5H6M ONE Stop: 04/17/18 19:20 Last Admin: 04/17/18 14:22 Dose: 50 mls/hr Insulin Aspart (Novolog) 0 unit SC Q6 [facility]; Protocol Last Admin: 04/17/18 12:28 Dose: Not Given Levothyroxine Sodium (Synthroid) 75 mcg PO DAILY@0630 [facility] Last Admin: 04/17/18 06:03 Dose: 75 mcg Pantoprazole Sodium (Protonix Inj) 40 mg IVP DAILY [facility] Last Admin: 04/17/18 09:08 Dose: 40 mg Potassium Phos/Sodium Phos (Neutra-Phos) 1 pkt NG TID [facility] Stop: 04/20/18 10:01 Last Admin: 04/17/18 14:23 Dose: Not Given - Labs Labs: 04/17/18 06:00 04/17/18 06:00 PT 13.0 SECONDS (9.7-12.2) H 04/15/18 06:14 INR 1.2 04/15/18 06:14 APTT 28 SECONDS (21-34) 04/15/18 06:14
--- NOTE | 2018-04-17 15:31 | CP.PCM.PN ---
Subjective - Date & Time of Evaluation Date of Evaluation: 04/17/18 Time of Evaluation: 15:30 - Subjective Subjective: Neuro Follow-Up: evaluated this afternoon in the ICU. Family present at bedside. Per son he has concerns that the pt is "shaking" on and off. Pt remains intubated, on sedation. Does not follow commands. ROS unobtainable from pt 2/2 his current status. Objective - Vital Signs/Intake and Output Vital Signs (last 24 hours): Temp Pulse Resp BP Pulse Ox 98.7 F 115 H 20 166/99 H 98 04/17/18 12:00 04/17/18 14:00 04/17/18 14:00 04/17/18 13:56 04/17/18 14:00 Intake and Output: 04/17/18 04/17/18 06:59 18:59 Intake Total 2412.7 1344.0 Output Total 770 540 Balance 1642.7 804.0 - Medications Medications: Current Medications Heparin Sodium (Porcine) (Heparin) 5,000 units SC Q8 [facility] Last Admin: 04/17/18 13:36 Dose: 5,000 units Cisatracurium Besylate 100 mg/ (Dextrose) 250 mls @ 41.03 mls/hr IV .Q6H6M PRN; Protocol PRN Reason: Seizure activity Last Titration: 04/17/18 05:35 Dose: 0.7 mcg/kg/min, 9.57 mls/hr Piperacillin Sod/Tazobactam (Sod 3.375 gm/ Sodium Chloride) 100 mls @ 200 mls/hr IVPB Q8H [facility]; Protocol Last Admin: 04/17/18 13:36 Dose: 200 mls/hr Levetiracetam 1,500 mg/ (Dextrose) 115 mls @ 420 mls/hr IVPB Q12H [facility] Last Admin: 04/17/18 13:36 Dose: 420 mls/hr Vancomycin/Sodium Chloride (Vancomycin 1 Gm/Ns 200 Ml) 1 gm in 200 mls @ 67 mls/hr IVPB Q12H [facility]; Protocol Stop: 04/18/18 16:01 Last Admin: 04/17/18 03:08 Dose: 67 mls/hr Propofol (Diprivan) 1,000 mg in 100 mls @ 2.735 mls/hr IV .Q24H PRN; Protocol PRN Reason: TITRATE PER MD ORDER Last Admin: 04/17/18 01:02 Dose: 10 mcg/kg/min, 5.47 mls/hr Sodium Chloride (Sodium Chloride 0.9%) 1,000 mls @ 50 mls/hr IV .Q20H [facility] Last Admin: 04/17/18 03:30 Dose: 50 mls/hr Valproate Sodium 1,000 mg/ (Sodium Chloride) 110 mls @ 100 mls/hr IVPB Q12H [facility] Last Admin: 04/17/18 05:23 Dose: 100 mls/hr Lacosamide 100 mg/ Sodium (Chloride) 60 mls @ 100 mls/hr IVPB Q12H [facility] Last Admin: 04/17/18 08:55 Dose: 100 mls/hr Midazolam HCl 100 mg/ Dextrose 100 mls @ 0.92 mls/hr IV .Q24H [facility]; Protocol Last Titration: 04/17/18 03:00 Dose: 0.03 mg/kg/hr, 2.9 mls/hr Sodium Phosphate 15 mmole/ (Sodium Chloride) 255 mls @ 50 mls/hr IVPB .Q5H6M ONE Stop: 04/17/18 19:20 Last Admin: 04/17/18 14:22 Dose: 50 mls/hr Insulin Aspart (Novolog) 0 unit SC Q6 [facility]; Protocol Last Admin: 04/17/18 12:28 Dose: Not Given Levothyroxine Sodium (Synthroid) 75 mcg PO DAILY@0630 [facility] Last Admin: 04/17/18 06:03 Dose: 75 mcg Lorazepam (Ativan) 1 mg IVP ONCE ONE Stop: 04/17/18 15:31 Pantoprazole Sodium (Protonix Inj) 40 mg IVP DAILY [facility] Last Admin: 04/17/18 09:08 Dose: 40 mg Potassium Phos/Sodium Phos (Neutra-Phos) 1 pkt NG TID [facility] Stop: 04/20/18 10:01 Last Admin: 04/17/18 14:23 Dose: Not Given - Labs Labs: 04/17/18 06:00 04/17/18 06:00 PT 13.0 SECONDS (9.7-12.2) H 04/15/18 06:14 INR 1.2 04/15/18 06:14 APTT 28 SECONDS (21-34) 04/15/18 06:14 - Constitutional Appears: Other (intubated, on sedation, does not follow commands) - Head Exam Head Exam: NORMAL INSPECTION, NORMOCEPHALIC - Eye Exam Eye Exam: absent: Normal appearance, PERRL Pupil Exam: absent: NORMAL ACCOMODATION, PERRL Additional comments: Pupils fixed at 6 mm b/l No corneals No dolls eyes - ENT Exam ENT Exam: Mucous Membranes Moist (intubated) - Neck Exam Neck Exam: Normal Inspection - Respiratory Exam Respiratory Exam: absent: NORMAL BREATHING PATTERN (intubated) - Cardiovascular Exam Cardiovascular Exam: Tachycardia (130's) - Extremities Exam Extremities Exam: absent: Full ROM Additional comments: + tone noted to LUE, lessened to RUE - Neurological Exam Neurological Exam: Altered Additional comments: Pt is intubated, on sedation Does not follow commands Pupils fixed at 6 mm; no corneals or dolls eyes No purposeful or non-purposeful movements noted + tone to LUE, lessened to RUE + myoclonic movements noted to BUE intermittently Toes upgoing to right foot Normal patellar reflex to RLE; hyporeflexia to LLE - Skin Skin Exam: Normal Color Assessment and Plan (1) Anoxic brain injury Assessment & Plan: Imaging reviewed: -EEG (04/15/18): This is an abnormal EEG record that demonstrate the presence of severe non specific diffuse disturbance of cortical activity, this is keeping with a diffuse pablo matter dysfunction, these findings are not specific. There were rhythmic muscle artifact seen, most likely mycolonus, this are usually seen in hypoxic brain insults, please correlate clinically. No seizures. Patient is not in status epilepticus -CT head (04/15/18): Extensive diffuse homogeneous appearance of the brain parenchyma with loss of the corticomedullary distinction and on diminution of cerebral sulci. Findings consistent with sequela diffuse hypoxia. -CT head (04/14/18): Little interval change in mild diffuse effacement of cortical sulci and indistinct pablo-white matter differentiation related to hypoxic-anoxic insult with the stated clinical history. -CT head (04/13/18): No acute intracranial hemorrhage. There is mild homogeneous appearance of the brain parenchyma with subtle indistinct appearance of the corticomedullary junction. Findings could represent mild diffuse cerebral edema related to hypoxia however clinical correlation suggested. -Continue Keppra, Valproic Acid, and Vimpat as ordered. Continue sedation per ICU orders. -Continue ICU management. -Dr. Snider spoke with son and pt's at length yesterday regarding VEEG findings and poor prognosis. I spoke with pt's son this afternoon and answered all questions and concerns. Per the son, the family is thinking of terminal extubation over the weekend. He is also requesting a repeat ct, so I will order that for tomorrow morning. -Repeat CT head without contrast in the morning. -Discussed with Dr. Kidd and ICU resident. -Notify neuro if there is any acute change in pt's condition. Sharifa Pepper, [place], [employer] Discussed with Dr. Snider Status: Acute
[2018-04-17] MEDS: Midazolam 50 mg/10 ml 100 MG in Dextrose 5% In Water 80 ML IV SCH (21:00)
--- NOTE | 2018-04-17 23:14 | CP.PCM.PN ---
Subjective - Date & Time of Evaluation Date of Evaluation: 04/17/18 Time of Evaluation: 10:35 - Subjective Subjective: evaluated this afternoon in the ICU. Family present at bedside. Patient does not follow commands Objective - Vital Signs/Intake and Output Vital Signs (last 24 hours): Temp Pulse Resp BP Pulse Ox 98.7 F 115 H 20 166/99 H 98 04/17/18 12:00 04/17/18 14:00 04/17/18 14:00 04/17/18 13:56 04/17/18 14:00 Intake and Output: 04/17/18 04/17/18 06:59 18:59 Intake Total 2412.7 1344.0 Output Total 770 540 Balance 1642.7 804.0 - Medications Medications: Current Medications Heparin Sodium (Porcine) (Heparin) 5,000 units SC Q8 [facility] Last Admin: 04/17/18 13:36 Dose: 5,000 units Cisatracurium Besylate 100 mg/ (Dextrose) 250 mls @ 41.03 mls/hr IV .Q6H6M PRN; Protocol PRN Reason: Seizure activity Last Titration: 04/17/18 05:35 Dose: 0.7 mcg/kg/min, 9.57 mls/hr Piperacillin Sod/Tazobactam (Sod 3.375 gm/ Sodium Chloride) 100 mls @ 200 mls/hr IVPB Q8H [facility]; Protocol Last Admin: 04/17/18 13:36 Dose: 200 mls/hr Levetiracetam 1,500 mg/ (Dextrose) 115 mls @ 420 mls/hr IVPB Q12H [facility] Last Admin: 04/17/18 13:36 Dose: 420 mls/hr Vancomycin/Sodium Chloride (Vancomycin 1 Gm/Ns 200 Ml) 1 gm in 200 mls @ 67 mls/hr IVPB Q12H [facility]; Protocol Stop: 04/18/18 16:01 Last Admin: 04/17/18 03:08 Dose: 67 mls/hr Propofol (Diprivan) 1,000 mg in 100 mls @ 2.735 mls/hr IV .Q24H PRN; Protocol PRN Reason: TITRATE PER MD ORDER Last Admin: 04/17/18 01:02 Dose: 10 mcg/kg/min, 5.47 mls/hr Sodium Chloride (Sodium Chloride 0.9%) 1,000 mls @ 50 mls/hr IV .Q20H [facility] Last Admin: 04/17/18 03:30 Dose: 50 mls/hr Valproate Sodium 1,000 mg/ (Sodium Chloride) 110 mls @ 100 mls/hr IVPB Q12H [facility] Last Admin: 04/17/18 05:23 Dose: 100 mls/hr Lacosamide 100 mg/ Sodium (Chloride) 60 mls @ 100 mls/hr IVPB Q12H [facility] Last Admin: 04/17/18 08:55 Dose: 100 mls/hr Midazolam HCl 100 mg/ Dextrose 100 mls @ 0.92 mls/hr IV .Q24H [facility]; Protocol Last Titration: 04/17/18 03:00 Dose: 0.03 mg/kg/hr, 2.9 mls/hr Sodium Phosphate 15 mmole/ (Sodium Chloride) 255 mls @ 50 mls/hr IVPB .Q5H6M ONE Stop: 04/17/18 19:20 Last Admin: 04/17/18 14:22 Dose: 50 mls/hr Insulin Aspart (Novolog) 0 unit SC Q6 [facility]; Protocol Last Admin: 04/17/18 12:28 Dose: Not Given Levothyroxine Sodium (Synthroid) 75 mcg PO DAILY@0630 [facility] Last Admin: 04/17/18 06:03 Dose: 75 mcg Lorazepam (Ativan) 1 mg IVP ONCE ONE Stop: 04/17/18 15:31 Pantoprazole Sodium (Protonix Inj) 40 mg IVP DAILY [facility] Last Admin: 04/17/18 09:08 Dose: 40 mg Potassium Phos/Sodium Phos (Neutra-Phos) 1 pkt NG TID [facility] Stop: 04/20/18 10:01 Last Admin: 04/17/18 14:23 Dose: Not Given - Labs Labs: 04/17/18 06:00 04/17/18 06:00 PT 13.0 SECONDS (9.7-12.2) H 04/15/18 06:14 INR 1.2 04/15/18 06:14 APTT 28 SECONDS (21-34) 04/15/18 06:14 - Constitutional Appears: Other (intubated, on sedation, does not follow commands) - Head Exam Head Exam: NORMAL INSPECTION, NORMOCEPHALIC - Eye Exam Eye Exam: absent: Normal appearance, PERRL Pupil Exam: absent: NORMAL ACCOMODATION, PERRL Additional comments: Pupils fixed at 6 mm b/l No corneals No dolls eyes - ENT Exam ENT Exam: Mucous Membranes Moist (intubated) - Neck Exam Neck Exam: Normal Inspection - Respiratory Exam Respiratory Exam: absent: NORMAL BREATHING PATTERN (intubated) - Cardiovascular Exam Cardiovascular Exam: Tachycardia (130's) - Extremities Exam Extremities Exam: absent: Full ROM Additional comments: + tone noted to LUE, lessened to RUE - Neurological Exam Neurological Exam: Altered Additional comments: Pt is intubated, on sedation Does not follow commands Pupils fixed at 6 mm; no corneals or dolls eyes No purposeful or non-purposeful movements noted + tone to LUE, lessened to RUE + myoclonic movements noted to BUE intermittently Toes upgoing to right foot Normal patellar reflex to RLE; hyporeflexia to LLE - Skin Skin Exam: Normal Color Assessment and Plan (1) Anoxic brain injury Assessment & Plan: Imaging reviewed: -EEG (04/15/18): This is an abnormal EEG record that demonstrate the presence of severe non specific diffuse disturbance of cortical activity, this is keeping with a diffuse pablo matter dysfunction, these findings are not specific. There were rhythmic muscle artifact seen, most likely mycolonus, this are usually seen in hypoxic brain insults, please correlate clinically. No seizures. Patient is not in status epilepticus -CT head (04/15/18): Extensive diffuse homogeneous appearance of the brain parenchyma with loss of the corticomedullary distinction and on diminution of cerebral sulci. Findings consistent with sequela diffuse hypoxia. -CT head (04/14/18): Little interval change in mild diffuse effacement of cortical sulci and indistinct pablo-white matter differentiation related to hypoxic-anoxic insult with the stated clinical history. -CT head (04/13/18): No acute intracranial hemorrhage. There is mild homogeneous appearance of the brain parenchyma with subtle indistinct appearance of the corticomedullary junction. Findings could represent mild diffuse cerebral edema related to hypoxia however clinical correlation suggested. -Continue Keppra, Valproic Acid, and Vimpat as ordered. Continue sedation per ICU orders. -Continue ICU management. -Dr. Snider spoke with son and pt's at length yesterday regarding VEEG findings and poor prognosis. I spoke with pt's son this afternoon and answered all questions and concerns. Per the son, the family is thinking of terminal extubation over the weekend. He is also requesting a repeat ct, so I will order that for tomorrow morning. -Repeat CT head without contrast in the morning. Objective - Vital Signs/Intake and Output Vital Signs (last 24 hours): Temp Pulse Resp BP Pulse Ox 100.1 F H 116 H 24 150/96 H 100 04/17/18 20:00 04/17/18 22:00 04/17/18 22:00 04/17/18 22:00 04/17/18 22:00 Intake and Output: 04/17/18 04/18/18 18:59 06:59 Intake Total 2639.8 478.6 Output Total 1045 460 Balance 1594.8 18.6 - Medications Medications: Current Medications Heparin Sodium (Porcine) (Heparin) 5,000 units SC Q8 [facility] Last Admin: 04/17/18 21:40 Dose: 5,000 units Cisatracurium Besylate 100 mg/ (Dextrose) 250 mls @ 41.03 mls/hr IV .Q6H6M PRN; Protocol PRN Reason: Seizure activity Last Titration: 04/17/18 05:35 Dose: 0.7 mcg/kg/min, 9.57 mls/hr Piperacillin Sod/Tazobactam (Sod 3.375 gm/ Sodium Chloride) 100 mls @ 200 mls/hr IVPB Q8H [facility]; Protocol Last Admin: 04/17/18 21:40 Dose: 200 mls/hr Levetiracetam 1,500 mg/ (Dextrose) 115 mls @ 420 mls/hr IVPB Q12H [facility] Last Admin: 04/17/18 13:36 Dose: 420 mls/hr Vancomycin/Sodium Chloride (Vancomycin 1 Gm/Ns 200 Ml) 1 gm in 200 mls @ 67 ml s/hr IVPB Q12H [facility]; Protocol Stop: 04/18/18 16:01 Last Admin: 04/17/18 15:43 Dose: 67 mls/hr Propofol (Diprivan) 1,000 mg in 100 mls @ 2.735 mls/hr IV .Q24H PRN; Protocol PRN Reason: TITRATE PER MD ORDER Last Titration: 04/17/18 20:30 Dose: 20 mcg/kg/min, 10.941 mls/hr Sodium Chloride (Sodium Chloride 0.9%) 1,000 mls @ 50 mls/hr IV .Q20H [facility] Last Admin: 04/17/18 17:40 Dose: Not Given Valproate Sodium 1,000 mg/ (Sodium Chloride) 110 mls @ 100 mls/hr IVPB Q12H [facility] Last Admin: 04/17/18 17:36 Dose: 100 mls/hr Lacosamide 100 mg/ Sodium (Chloride) 60 mls @ 100 mls/hr IVPB Q12H [facility] Last Admin: 04/17/18 21:00 Dose: 100 mls/hr Midazolam HCl 100 mg/ Dextrose 100 mls @ 0.92 mls/hr IV .Q24H [facility]; Protocol Last Admin: 04/17/18 21:00 Dose: 0.05 mg/kg/hr, 4.58 mls/hr Insulin Aspart (Novolog) 0 unit SC Q6 [facility]; Protocol Last Admin: 04/17/18 18:04 Dose: Not Given Levothyroxine Sodium (Synthroid) 75 mcg PO DAILY@0630 [facility] Last Admin: 04/17/18 06:03 Dose: 75 mcg Lorazepam (Ativan) 1 mg IVP Q4H PRN PRN Reason: Seizure activity Last Admin: 04/17/18 18:03 Dose: 1 mg Pantoprazole Sodium (Protonix Inj) 40 mg IVP DAILY [facility] Last Admin: 04/17/18 09:08 Dose: 40 mg Potassium Phos/Sodium Phos (Neutra-Phos) 1 pkt NG TID [facility] Stop: 04/20/18 10:01 Last Admin: 04/17/18 17:39 Dose: Not Given - Labs Labs: 04/17/18 06:00 04/17/18 06:00 PT 13.0 SECONDS (9.7-12.2) H 04/15/18 06:14 INR 1.2 04/15/18 06:14 APTT 28 SECONDS (21-34) 04/15/18 06:14
[2018-04-18] MEDS: Propofol 10 mg/ml 1,000 MG/100 ML VIAL IV PRN ×3 (01:30→17:11)
[2018-04-18] MEDS: Vancomycin 1 gm/NS 200 ml 1 GM/200 ML BAG IVPB SCH ×2 (04:15→15:15)
[2018-04-18] MEDS: Sodium Chloride 0.9% 1,000 ML IV SCH ×2 (04:15→15:11)
[2018-04-18] MEDS: Levothyroxine 75 MCG TAB PO SCH (05:30)
[2018-04-18 05:43] LABS: ABG ALLEN TEST POS; ARTERIAL BLOOD GAS HCO3 26.3 mmol/L (21-28); ARTERIAL BLOOD GAS O2 SAT 98.7 % (95-98); ARTERIAL BLOOD GAS PCO2 30 mm/Hg (35-45); ARTERIAL BLOOD GAS PH 7.51 (7.35-7.45); ARTERIAL BLOOD GAS PO2 95 mm/Hg (80-100); ARTERIAL BLOOD GAS TCO2 24.8 mmol/L (22-28)
[2018-04-18] MEDS: Valproate 1,000 MG in Sodium Chloride 0.9% 100 ML IVPB SCH ×2 (05:50→17:06)
[2018-04-18] MEDS: (Novolog) Insulin Aspart, Recombinant 100 u/ml 10 ml vial SC SCH ×4 (06:00→18:17)
[2018-04-18 06:08] LABS: BASO % 0.2 % (0.0-2.0); EOS # 0.6 K/uL (0.0-0.7); EOS % 6.5 % (0.0-4.0); HEMOGLOBIN 13.1 g/dL (12.0-18.0); LYMPH # 1.2 K/uL (1.0-4.3); LYMPH % 14.6 % (20.0-40.0); MEAN CORPUSCULAR HGB CONC 34.4 g/dL (33.0-37.0); MEAN PLATELET VOLUME 7.9 fL (7.2-11.7); MONO # 0.7 K/uL (0.0-0.8); MONO % 8.1 % (0.0-10.0); NEUT % 70.6 % (50.0-75.0); NRBC % 0.1 % (0.0-2.0); RBC 4.09 Mil/uL (4.40-5.90); RED CELL DISTRIBUTION WIDTH 12.4 % (11.5-14.5); WHITE BLOOD COUNT 8.4 K/uL (4.8-10.8)
[2018-04-18 06:24] LABS: ALB/GLOB RATIO 1.2 (1.0-2.1); ALBUMIN 3.1 g/dL (3.5-5.0); ALT/SGPT 74 U/L (21-72); AST/SGOT 108 U/L (17-59); BLOOD UREA NITROGEN 19 mg/dL (9-20); CALCIUM 8.4 mg/dl (8.6-10.4); GFR NON-AFRICAN AMERICAN > 60
[2018-04-18] MEDS: Piperacillin/Tazobact 3.375 GM in Sodium Chloride 100 ML IVPB SCH ×3 (06:55→21:35)
--- NOTE | 2018-04-18 07:29 | CP.CCUPN ---
<Edgar Luna M - Last Filed: 04/18/18 14:30> CCU Subjective - Physician Review Subjective (Free Text): Critical care progress note for Dr. Kingsley Riddle Patient seen and examined at bedside. Overnight required only 1 mg ativan for seizures/myclonic movement. Pt is having versed titrated up & nimbex titrated down. Pt continues to have spiking fevers w/ tmax 102.2. ROS unable to obtain due to intubation. 04/18/18 14:24 CCU Objective - Vital Signs / Intake & Output Vital Signs (Last 4 hours): Vital Signs Temp Pulse Resp BP Pulse Ox 04/18/18 05:00 118 H 28 H 152/100 H 100 04/18/18 04:00 99.8 F H 109 H 22 129/79 98 Intake and Output (Last 8hrs): Intake & Output 04/17/18 04/18/18 04/18/18 22:59 06:59 14:59 Intake Total 1774.4 1168.4 Output Total 965 585 Balance 809.4 583.4 Intake: IV 218 82 Intake, IV Amount 1066.4 676.4 L AC #18 450 Left Antecubital 33 77 Left Wrist 27.5 Left mid-arm 0 Left mid-arm side port 0 Right Arm PICC Distal 92.1 67.2 Port Right Arm PICC Distal 13.8 32.2 Port Y-site Right Arm PICC Proximal 450 500 Port Oral 90 60 Tube Feeding 400 350 Output: Urine 965 585 Urethral (Campuzano) [phone] Other: # Bowel Movements 0 - Physical Exam Head: Positive for: Atraumatic, Normocephalic Mouth: Positive for: Moist Mucous Membranes Respiratory/Chest: Positive for: Other (on ventilator). Negative for: Respiratory Distress, Accessory Muscle Use, Wheezes, Rhonchi Cardiovascular: Positive for: Normal S1, S2 Abdomen: Negative for: Tenderness, Distention Upper Extremity: Positive for: Normal Inspection. Negative for: Edema Lower Extremity: Positive for: Normal Inspection. Negative for: Edema Skin: Positive for: Warm, Dry, Rashes Psychiatric: Positive for: Other (intubated) - Medications Active Medications: Active Medications Generic Name Dose Route Start Last Admin Trade Name Freq PRN Reason Stop Dose Admin Heparin Sodium (Porcine) 5,000 units 04/14/18 14:00 04/18/18 05:25 Heparin SC 5,000 units Q8 ROBERT Administration Cisatracurium Besylate 100 mg/ 250 mls @ 41.03 mls/hr 04/13/18 14:00 04/17/18 05:35 Dextrose IV 0.7 mcg/kg/min .Q6H6M PRN 9.57 mls/hr Seizure activity Titration Protocol 3 MCG/KG/MIN Piperacillin Sod/Tazobactam 100 mls @ 200 mls/hr 04/13/18 14:15 04/18/18 06:55 Sod 3.375 gm/ Sodium Chloride IVPB 200 mls/hr Q8H ROBERT Administration Protocol Levetiracetam 1,500 mg/ 115 mls @ 420 mls/hr 04/13/18 14:30 04/18/18 01:30 Dextrose IVPB 420 mls/hr Q12H ROBERT Administration Vancomycin/Sodium Chloride 1 gm in 200 mls @ 67 mls/hr 04/13/18 16:00 04/18/18 04:15 Vancomycin 1 Gm/Ns 200 Ml IVPB 04/18/18 16:01 67 mls/hr Q12H ROBERT Administration Protocol Propofol 1,000 mg in 100 mls @ 2.735 mls/hr 04/13/18 22:57 04/18/18 01:30 Diprivan IV 20 mcg/kg/min .Q24H PRN 10.941 mls/hr TITRATE PER MD ORDER Administration Protocol 5 MCG/KG/MIN Sodium Chloride 1,000 mls @ 50 mls/hr 04/14/18 10:36 04/18/18 04:15 Sodium Chloride 0.9% IV 50 mls/hr .Q20H ROBERT Administration Valproate Sodium 1,000 mg/ 110 mls @ 100 mls/hr 04/15/18 18:00 04/18/18 05:50 Sodium Chloride IVPB 100 mls/hr Q12H ROBERT Administration Lacosamide 100 mg/ Sodium 60 mls @ 100 mls/hr 04/15/18 20:00 04/17/18 21:00 Chloride IVPB 100 mls/hr Q12H ROBERT Administration Midazolam HCl 100 mg/ Dextrose 100 mls @ 0.92 mls/hr 04/16/18 21:15 04/17/18 21:00 IV 0.05 mg/kg/hr .Q24H ROBERT 4.58 mls/hr Administration Protocol 0.01 MG/KG/HR Insulin Aspart 0 unit 04/17/18 00:00 04/18/18 06:00 Novolog SC Not Given Q6 [facility] Protocol Levothyroxine Sodium 75 mcg 04/17/18 06:30 04/18/18 05:30 Synthroid PO 75 mcg DAILY@0630 ROBERT Administration Lorazepam 1 mg 04/17/18 17:30 04/18/18 05:25 Ativan IVP 1 mg Q4H PRN Administration Seizure activity Pantoprazole Sodium 40 mg 04/14/18 10:00 04/17/18 09:08 Protonix Inj IVP 40 mg DAILY ROBERT Administration Potassium Phos/Sodium Phos 1 pkt 04/17/18 10:00 04/17/18 17:39 Neutra-Phos NG 04/20/18 10:01 Not Given TID ROBERT - Patient Studies Lab Studies: Microbiology Studies 04/13/18 14:40 Blood Culture - Preliminary Blood NO GROWTH AFTER 4 DAYS 04/13/18 14:30 Blood Culture - Preliminary Blood NO GROWTH AFTER 4 DAYS Lab Studies 04/18/18 04/18/18 04/18/18 Range/Units 06:02 06:00 06:00 WBC 8.4 (4.8-10.8) K/uL RBC 4.09 L (4.40-5.90) Mil/uL Hgb 13.1 (12.0-18.0) g/dL Hct 38.0 (35.0-51.0) % MCV 93.0 (80.0-94.0) fL MCH 32.0 H (27.0-31.0) pg MCHC 34.4 (33.0-37.0) g/dL RDW 12.4 (11.5-14.5) % Plt Count 168 (130-400) K/uL MPV 7.9 (7.2-11.7) fL Neut % (Auto) 70.6 (50.0-75.0) % Lymph % (Auto) 14.6 L (20.0-40.0) % Swisher % (Auto) 8.1 (0.0-10.0) % Eos % (Auto) 6.5 H (0.0-4.0) % Baso % (Auto) 0.2 (0.0-2.0) % Neut # (Auto) 6.0 (1.8-7.0) K/uL Lymph # (Auto) 1.2 (1.0-4.3) K/uL Swisher # (Auto) 0.7 (0.0-0.8) K/uL Eos # (Auto) 0.6 (0.0-0.7) K/uL Baso # (Auto) 0.0 (0.0-0.2) K/uL Puncture Site pCO2 (35-45) mm/Hg pO2 (80-100) mm/Hg HCO3 (21-28) mmol/L ABG pH (7.35-7.45) ABG Total CO2 (22-28) mmol/L ABG O2 Saturation (95-98) % ABG Base Excess (-2.0-3.0) mmol/L Jose Test ABG Potassium (3.6-5.2) mmol/L A-a O2 Difference mm/Hg Respiratory Index Sodium 140 (132-148) mmol/l Chloride 108 H (98-107) mmol/L Glucose (75-110) mg/dl Lactate (0.7-2.1) mmol/L Vent Mode Mechanical Rate FiO2 % Tidal Volume PEEP Potassium 3.4 L (3.6-5.2) mmol/L Carbon Dioxide 28 (22-30) mmol/L Anion Gap 7 L (10-20) BUN 19 (9-20) mg/dL Creatinine 0.8 (0.8-1.5) mg/dL Est GFR ( Amer) > 60 Est GFR (Non-Af Amer) > 60 Random Glucose 107 D (75-110) mg/dL Calcium 8.4 L (8.6-10.4) mg/dl Phosphorus 3.1 (2.5-4.5) mg/dL Magnesium 2.1 (1.6-2.3) mg/dL Total Bilirubin 0.7 (0.2-1.3) mg/dL AST 108 H (17-59) U/L ALT 74 H D (21-72) U/L Alkaline Phosphatase 102 (38-126) U/L Total Protein 5.8 L (6.3-8.3) g/dL Albumin 3.1 L (3.5-5.0) g/dL Globulin 2.7 (2.2-3.9) gm/dL Albumin/Globulin Ratio 1.2 (1.0-2.1) Ethanolamine Arterial Blood Potassium (3.6-5.2) mmol/L Vancomycin Trough (5.0-10.0) ug/mL Valproic Acid 46.8 L (50.0-100.0) ug/mL Methyl Alcohol Level Isopropanol Acetone Level 04/18/18 04/17/18 04/13/18 Range/Units 05:17 15:10 13:29 WBC (4.8-10.8) K/uL RBC (4.40-5.90) Mil/uL Hgb (12.0-18.0) g/dL Hct (35.0-51.0) % MCV (80.0-94.0) fL MCH (27.0-31.0) pg MCHC (33.0-37.0) g/dL RDW (11.5-14.5) % Plt Count (130-400) K/uL MPV (7.2-11.7) fL Neut % (Auto) (50.0-75.0) % Lymph % (Auto) (20.0-40.0) % Swisher % (Auto) (0.0-10.0) % Eos % (Auto) (0.0-4.0) % Baso % (Auto) (0.0-2.0) % Neut # (Auto) (1.8-7.0) K/uL Lymph # (Auto) (1.0-4.3) K/uL Swisher # (Auto) (0.0-0.8) K/uL Eos # (Auto) (0.0-0.7) K/uL Baso # (Auto) (0.0-0.2) K/uL Puncture Site Lr pCO2 30 L (35-45) mm/Hg pO2 95 (80-100) mm/Hg HCO3 26.3 (21-28) mmol/L ABG pH 7.51 H (7.35-7.45) ABG Total CO2 24.8 (22-28) mmol/L ABG O2 Saturation 98.7 H (95-98) % ABG Base Excess 1.7 (-2.0-3.0) mmol/L Jose Test Pos ABG Potassium 3.2 L (3.6-5.2) mmol/L A-a O2 Difference 295.0 mm/Hg Respiratory Index 3.1 Sodium 142.0 (132-148) mmol/l Chloride 113.0 H (98-107) mmol/L Glucose 93 (75-110) mg/dl Lactate 1.4 (0.7-2.1) mmol/L Vent Mode Prvc Mechanical Rate 18 FiO2 60.0 % Tidal Volume 500 PEEP 5 Potassium (3.6-5.2) mmol/L Carbon Dioxide (22-30) mmol/L Anion Gap (10-20) BUN (9-20) mg/dL Creatinine (0.8-1.5) mg/dL Est GFR ( Amer) Est GFR (Non-Af Amer) Random Glucose (75-110) mg/dL Calcium (8.6-10.4) mg/dl Phosphorus (2.5-4.5) mg/dL Magnesium (1.6-2.3) mg/dL Total Bilirubin (0.2-1.3) mg/dL AST (17-59) U/L ALT (21-72) U/L Alkaline Phosphatase (38-126) U/L Total Protein (6.3-8.3) g/dL Albumin (3.5-5.0) g/dL Globulin (2.2-3.9) gm/dL Albumin/Globulin Ratio (1.0-2.1) Ethanolamine None detected Arterial Blood Potassium 3.2 L (3.6-5.2) mmol/L Vancomycin Trough 5.5 (5.0-10.0) ug/mL Valproic Acid (50.0-100.0) ug/mL Methyl Alcohol Level None detected Isopropanol None detected Acetone Level None detected Laboratory Results - last 24 hr 04/13/18 04/17/18 04/18/18 13:29 15:10 05:17 WBC RBC Hgb Hct MCV MCH MCHC RDW Plt Count MPV Neut % (Auto) Lymph % (Auto) Swisher % (Auto) Eos % (Auto) Baso % (Auto) Neut # (Auto) Lymph # (Auto) Swisher # (Auto) Eos # (Auto) Baso # (Auto) Puncture Site Lr pCO2 30 L pO2 95 HCO3 26.3 ABG pH 7.51 H ABG Total CO2 24.8 ABG O2 Saturation 98.7 H ABG Base Excess 1.7 Jose Test Pos ABG Potassium 3.2 L A-a O2 Difference 295.0 Respiratory Index 3.1 Sodium 142.0 Chloride 113.0 H Glucose 93 Lactate 1.4 Vent Mode Prvc Mechanical Rate 18 FiO2 60.0 Tidal Volume 500 PEEP 5 Potassium Carbon Dioxide Anion Gap BUN Creatinine Est GFR ( Amer) Est GFR (Non-Af Amer) Random Glucose Calcium Phosphorus Magnesium Total Bilirubin AST ALT Alkaline Phosphatase Total Protein Albumin Globulin Albumin/Globulin Ratio Ethanolamine None detected Arterial Blood Potassium 3.2 L Vancomycin Trough 5.5 Valproic Acid Methyl Alcohol Level None detected Isopropanol None detected Acetone Level None detected 04/18/18 04/18/18 04/18/18 06:00 06:00 06:02 WBC 8.4 RBC 4.09 L Hgb 13.1 Hct 38.0 MCV 93.0 MCH 32.0 H MCHC 34.4 RDW 12.4 Plt Count 168 MPV 7.9 Neut % (Auto) 70.6 Lymph % (Auto) 14.6 L Swisher % (Auto) 8.1 Eos % (Auto) 6.5 H Baso % (Auto) 0.2 Neut # (Auto) 6.0 Lymph # (Auto) 1.2 Swisher # (Auto) 0.7 Eos # (Auto) 0.6 Baso # (Auto) 0.0 Puncture Site pCO2 pO2 HCO3 ABG pH ABG Total CO2 ABG O2 Saturation ABG Base Excess Jose Test ABG Potassium A-a O2 Difference Respiratory Index Sodium 140 Chloride 108 H Glucose Lactate Vent Mode Mechanical Rate FiO2 Tidal Volume PEEP Potassium 3.4 L Carbon Dioxide 28 Anion Gap 7 L BUN 19 Creatinine 0.8 Est GFR ( Amer) > 60 Est GFR (Non-Af Amer) > 60 Random Glucose 107 D Calcium 8.4 L Phosphorus 3.1 Magnesium 2.1 Total Bilirubin 0.7 AST 108 H ALT 74 H D Alkaline Phosphatase 102 Total Protein 5.8 L Albumin 3.1 L Globulin 2.7 Albumin/Globulin Ratio 1.2 Ethanolamine Arterial Blood Potassium Vancomycin Trough Valproic Acid 46.8 L Methyl Alcohol Level Isopropanol Acetone Level Radiology Impressions: Radiology Impressions Chest X-Ray 04/17/18 06:00 IMPRESSION: Mild venous congestion. Small left pleural effusion and/or consolidation. Endotracheal tube and nasogastric tube. Chest X-Ray 04/17/18 12:01 IMPRESSION: Support lines and tubes as above. Bibasilar atelectasis and/or infiltrates with bilateral effusions left larger than right. Central pulmonary vasculature appears slightly less congested. EKG/Cardiology Studies: Cardiology / EKG Studies 04/17/18 12:30 EKG [ELECTROCARDIOGRAM] DAILY Comment: Mode Of Transportation: Reason For Exam: code heart vasospasm Fingerstick Blood Sugar Results: 115 Review of Systems - Review of Systems Systems not reviewed;Unavailable: Intubated Critical Care Progress Note - Ventilator Checklist Head of Bed 30 Degrees: Yes Daily Sedation Vacation: No Daily Assessment of Readiness to Wean: Yes Daily Spontaneous Breathing Trial: No PUD Prophalyxis: Yes DVT Prophylaxis: Yes Oral Care with Chlorhexidine Gluconate {CHG}: Yes - Vent Settings MODE:: PRVC TIDAL VOLUME:: 500 RESP RATE:: 18 FIO2:: 60 PEEP:: 5 - Extremities/Vascular Does the Patient have a Campuzano Catheter?: Yes Does the Patient need a Campuzano Catheter?: Yes Catheter Insertion Criteria: Need for accurate measurement of output in critically ill patient - Prophylaxis GI Prophylaxis GI: PPI - Prophylaxis DVT Prophylaxis DVT: Heparin SQ - Nutrition Nutrition: Nutrition Category Date Time Status NPO Diet [DIET] Diets 04/13/18 Dinner Active Assessment/Plan - Assessment and Plan (Free Text) Assessment: 43M w/ pmhx of hypothyrodism, found unresponsive in parking lot in cardiac arrest, cardiac cath shows clean arteries, hypothermic protocol completed, monitoring neurological status. Patient likely has poor prognosis. Patient in status epilepicus on triple anti-epileptic medication per neuro, titrated off nimbex, with versed increase for seizure control 1) Anoxic brain injury 2) Acute respiratory failure 3) Cardiac arrest 4) Status epilepticus Plan: Neuro - intubated - on versed drip & propofol drip, increase versed for seizure control - titrate off nimbex - video EEG indicative of status epileptics - Per neuro - kepra 1500 Q12H - vimpat 100 mg Q12H - depakote 1000mg Q12H - CT indicative of edema; repeat CT: diffuse homogenous appearance of brain parenchyma w/ loss of the coritcomedullary distinction - repeat CT minimal change from previous CTs Cardio - vitals stable - clean coronary arteries - EF 65% - continue to monitor Resp - on ventilator - vent settings 18/60/500/5 - continue to monitor Renal - BUN/Cr wnl - NS 50 cc/hr GI - Jevity 1.5 initial 20 ml/hr, goal to 50, increase by 5 - stop free water flushes Heme - Stable H/H - elevated WBC - negative cultures to date - ?sepsis - vancomycin & zosyn Endo - hx of hypothyrodism - TSH initially 0.06 - decrease levothyroxine to 75 mcg PO daily - F/u TSH/FreeT4 PPx; - GI: protonix - DVT: heparin SC, SCds <Alfreda Riddle M - Last Filed: 04/18/18 18:38> CCU Subjective - Physician Review Critical Care Time Spent (in minutes): 55 CCU Objective - Vital Signs / Intake & Output Vital Signs (Last 4 hours): Vital Signs Temp Pulse Resp BP Pulse Ox 04/18/18 17:00 96 H 21 107/68 98 04/18/18 16:12 106/69 04/18/18 16:00 99.9 F H 99 H 22 106/69 97 04/18/18 15:00 101 H 22 99/59 L 98 Intake and Output (Last 8hrs): Intake & Output 04/18/18 04/18/18 04/18/18 06:59 14:59 22:59 Intake Total 1343.6 1923.7 741.1 Output Total 590 505 460 Balance 753.6 1418.7 281.1 Weight 193 lb 4.8 oz Intake: IV 82 484 136 Intake, IV Amount 801.6 739.7 455.1 Left Antecubital 88 87.3 32.7 Right Arm PICC Distal 76.8 60.2 4.1 Port Right Arm PICC Distal 36.8 42.2 18.3 Port Y-site Right Arm PICC Proximal 600 550 400 Port Oral 60 300 30 Tube Feeding 400 400 120 Output: Urine 590 505 460 Urethral (Campuzano) 590 505 460 Other: # Bowel Movements 0 0 - Medications Active Medications: Active Medications Generic Name Dose Route Start Last Admin Trade Name Freq PRN Reason Stop Dose Admin Heparin Sodium (Porcine) 5,000 units 04/14/18 14:00 04/18/18 14:26 Heparin SC 5,000 units Q8 ROBERT Administration Piperacillin Sod/Tazobactam 100 mls @ 200 mls/hr 04/13/18 14:15 04/18/18 14:25 Sod 3.375 gm/ Sodium Chloride IVPB 200 mls/hr Q8H ROBERT Administration Protocol Levetiracetam 1,500 mg/ 115 mls @ 420 mls/hr 04/13/18 14:30 04/18/18 14:23 Dextrose IVPB 420 mls/hr Q12H ROBERT Administration Propofol 1,000 mg in 100 mls @ 2.735 mls/hr 04/13/18 22:57 04/18/18 17:11 Diprivan IV 20 mcg/kg/min .Q24H PRN 10.941 mls/hr TITRATE PER MD ORDER Administration Protocol 5 MCG/KG/MIN Sodium Chloride 1,000 mls @ 50 mls/hr 04/14/18 10:36 04/18/18 15:11 Sodium Chloride 0.9% IV Not Given .Q20H ROBERT Valproate Sodium 1,000 mg/ 110 mls @ 100 mls/hr 04/15/18 18:00 04/18/18 17:06 Sodium Chloride IVPB 100 mls/hr Q12H ROBERT Administration Lacosamide 100 mg/ Sodium 60 mls @ 100 mls/hr 04/15/18 20:00 04/18/18 08:02 Chloride IVPB 100 mls/hr Q12H ROBERT Administration Midazolam HCl 100 mg/ Dextrose 100 mls @ 0.92 mls/hr 04/16/18 21:15 04/18/18 18:17 IV 0.04 mg/kg/hr .Q24H ROBERT 3.67 mls/hr Titration Protocol 0.01 MG/KG/HR Insulin Aspart 0 unit 04/17/18 00:00 04/18/18 18:17 Novolog SC Not Given Q6 ROBERT Protocol Levothyroxine Sodium 75 mcg 04/17/18 06:30 04/18/18 05:30 Synthroid PO 75 mcg DAILY@0630 ROBERT Administration Lorazepam 1 mg 04/17/18 17:30 04/18/18 05:25 Ativan IVP 1 mg Q4H PRN Administration Seizure activity Pantoprazole Sodium 40 mg 04/19/18 10:00 Protonix Susp GT DAILY ROBERT - Patient Studies Lab Studies: Microbiology Studies 04/13/18 14:40 Blood Culture - Final Blood NO GROWTH AFTER 5 DAYS Gram Stain - Final TEST NOT PERFORMED 04/13/18 14:30 Blood Culture - Final Blood NO GROWTH AFTER 5 DAYS Gram Stain - Final TEST NOT PERFORMED Lab Studies 04/18/18 04/18/18 04/18/18 Range/Units 06:02 06:00 06:00 WBC 8.4 (4.8-10.8) K/uL RBC 4.09 L (4.40-5.90) Mil/uL Hgb 13.1 (12.0-18.0) g/dL Hct 38.0 (35.0-51.0) % MCV 93.0 (80.0-94.0) fL MCH 32.0 H (27.0-31.0) pg MCHC 34.4 (33.0-37.0) g/dL RDW 12.4 (11.5-14.5) % Plt Count 168 (130-400) K/uL MPV 7.9 (7.2-11.7) fL Neut % (Auto) 70.6 (50.0-75.0) % Lymph % (Auto) 14.6 L (20.0-40.0) % Swisher % (Auto) 8.1 (0.0-10.0) % Eos % (Auto) 6.5 H (0.0-4.0) % Baso % (Auto) 0.2 (0.0-2.0) % Neut # (Auto) 6.0 (1.8-7.0) K/uL Lymph # (Auto) 1.2 (1.0-4.3) K/uL Swisher # (Auto) 0.7 (0.0-0.8) K/uL Eos # (Auto) 0.6 (0.0-0.7) K/uL Baso # (Auto) 0.0 (0.0-0.2) K/uL Puncture Site pCO2 (35-45) mm/Hg pO2 (80-100) mm/Hg HCO3 (21-28) mmol/L ABG pH (7.35-7.45) ABG Total CO2 (22-28) mmol/L ABG O2 Saturation (95-98) % ABG Base Excess (-2.0-3.0) mmol/L Jose Test ABG Potassium (3.6-5.2) mmol/L A-a O2 Difference mm/Hg Respiratory Index Sodium 140 (132-148) mmol/l Chloride 108 H (98-107) mmol/L Glucose (75-110) mg/dl Lactate (0.7-2.1) mmol/L Vent Mode Mechanical Rate FiO2 % Tidal Volume PEEP Potassium 3.4 L (3.6-5.2) mmol/L Carbon Dioxide 28 (22-30) mmol/L Anion Gap 7 L (10-20) BUN 19 (9-20) mg/dL Creatinine 0.8 (0.8-1.5) mg/dL Est GFR ( Amer) > 60 Est GFR (Non-Af Amer) > 60 Random Glucose 107 D (75-110) mg/dL Calcium 8.4 L (8.6-10.4) mg/dl Phosphorus 3.1 (2.5-4.5) mg/dL Magnesium 2.1 (1.6-2.3) mg/dL Total Bilirubin 0.7 (0.2-1.3) mg/dL AST 108 H (17-59) U/L ALT 74 H D (21-72) U/L Alkaline Phosphatase 102 (38-126) U/L Total Protein 5.8 L (6.3-8.3) g/dL Albumin 3.1 L (3.5-5.0) g/dL Globulin 2.7 (2.2-3.9) gm/dL Albumin/Globulin Ratio 1.2 (1.0-2.1) Ethanolamine Arterial Blood Potassium (3.6-5.2) mmol/L Valproic Acid 46.8 L (50.0-100.0) ug/mL Toxicology Panel Methyl Alcohol Level Isopropanol Acetone Level 04/18/18 04/13/18 Range/Units 05:17 13:29 WBC (4.8-10.8) K/uL RBC (4.40-5.90) Mil/uL Hgb (12.0-18.0) g/dL Hct (35.0-51.0) % MCV (80.0-94.0) fL MCH (27.0-31.0) pg MCHC (33.0-37.0) g/dL RDW (11.5-14.5) % Plt Count (130-400) K/uL MPV (7.2-11.7) fL Neut % (Auto) (50.0-75.0) % Lymph % (Auto) (20.0-40.0) % Swisher % (Auto) (0.0-10.0) % Eos % (Auto) (0.0-4.0) % Baso % (Auto) (0.0-2.0) % Neut # (Auto) (1.8-7.0) K/uL Lymph # (Auto) (1.0-4.3) K/uL Swisher # (Auto) (0.0-0.8) K/uL Eos # (Auto) (0.0-0.7) K/uL Baso # (Auto) (0.0-0.2) K/uL Puncture Site Lr pCO2 30 L (35-45) mm/Hg pO2 95 (80-100) mm/Hg HCO3 26.3 (21-28) mmol/L ABG pH 7.51 H (7.35-7.45) ABG Total CO2 24.8 (22-28) mmol/L ABG O2 Saturation 98.7 H (95-98) % ABG Base Excess 1.7 (-2.0-3.0) mmol/L Jose Test Pos ABG Potassium 3.2 L (3.6-5.2) mmol/L A-a O2 Difference 295.0 mm/Hg Respiratory Index 3.1 Sodium 142.0 (132-148) mmol/l Chloride 113.0 H (98-107) mmol/L Glucose 93 (75-110) mg/dl Lactate 1.4 (0.7-2.1) mmol/L Vent Mode Prvc Mechanical Rate 18 FiO2 60.0 % Tidal Volume 500 PEEP 5 Potassium (3.6-5.2) mmol/L Carbon Dioxide (22-30) mmol/L Anion Gap (10-20) BUN (9-20) mg/dL Creatinine (0.8-1.5) mg/dL Est GFR ( Amer) Est GFR (Non-Af Amer) Random Glucose (75-110) mg/dL Calcium (8.6-10.4) mg/dl Phosphorus (2.5-4.5) mg/dL Magnesium (1.6-2.3) mg/dL Total Bilirubin (0.2-1.3) mg/dL AST (17-59) U/L ALT (21-72) U/L Alkaline Phosphatase (38-126) U/L Total Protein (6.3-8.3) g/dL Albumin (3.5-5.0) g/dL Globulin (2.2-3.9) gm/dL Albumin/Globulin Ratio (1.0-2.1) Ethanolamine None detected Arterial Blood Potassium 3.2 L (3.6-5.2) mmol/L Valproic Acid (50.0-100.0) ug/mL Toxicology Panel see note Methyl Alcohol Level None detected Isopropanol None detected Acetone Level None detected Laboratory Results - last 24 hr 04/13/18 04/18/18 04/18/18 13:29 05:17 06:00 WBC RBC Hgb Hct MCV MCH MCHC RDW Plt Count MPV Neut % (Auto) Lymph % (Auto) Swisher % (Auto) Eos % (Auto) Baso % (Auto) Neut # (Auto) Lymph # (Auto) Swisher # (Auto) Eos # (Auto) Baso # (Auto) Puncture Site Lr pCO2 30 L pO2 95 HCO3 26.3 ABG pH 7.51 H ABG Total CO2 24.8 ABG O2 Saturation 98.7 H ABG Base Excess 1.7 Jose Test Pos ABG Potassium 3.2 L A-a O2 Difference 295.0 Respiratory Index 3.1 Sodium 142.0 140 Chloride 113.0 H 108 H Glucose 93 Lactate 1.4 Vent Mode Prvc Mechanical Rate 18 FiO2 60.0 Tidal Volume 500 PEEP 5 Potassium 3.4 L Carbon Dioxide 28 Anion Gap 7 L BUN 19 Creatinine 0.8 Est GFR ( Amer) > 60 Est GFR (Non-Af Amer) > 60 Random Glucose 107 D Calcium 8.4 L Phosphorus 3.1 Magnesium 2.1 Total Bilirubin 0.7 AST 108 H ALT 74 H D Alkaline Phosphatase 102 Total Protein 5.8 L Albumin 3.1 L Globulin 2.7 Albumin/Globulin Ratio 1.2 Ethanolamine None detected Arterial Blood Potassium 3.2 L Valproic Acid Toxicology Panel see note Methyl Alcohol Level None detected Isopropanol None detected Acetone Level None detected 04/18/18 04/18/18 06:00 06:02 WBC 8.4 RBC 4.09 L Hgb 13.1 Hct 38.0 MCV 93.0 MCH 32.0 H MCHC 34.4 RDW 12.4 Plt Count 168 MPV 7.9 Neut % (Auto) 70.6 Lymph % (Auto) 14.6 L Swisher % (Auto) 8.1 Eos % (Auto) 6.5 H Baso % (Auto) 0.2 Neut # (Auto) 6.0 Lymph # (Auto) 1.2 Swisher # (Auto) 0.7 Eos # (Auto) 0.6 Baso # (Auto) 0.0 Puncture Site pCO2 pO2 HCO3 ABG pH ABG Total CO2 ABG O2 Saturation ABG Base Excess Jose Test ABG Potassium A-a O2 Difference Respiratory Index Sodium Chloride Glucose Lactate Vent Mode Mechanical Rate FiO2 Tidal Volume PEEP Potassium Carbon Dioxide Anion Gap BUN Creatinine Est GFR ( Amer) Est GFR (Non-Af Amer) Random Glucose Calcium Phosphorus Magnesium Total Bilirubin AST ALT Alkaline Phosphatase Total Protein Albumin Globulin Albumin/Globulin Ratio Ethanolamine Arterial Blood Potassium Valproic Acid 46.8 L Toxicology Panel Methyl Alcohol Level Isopropanol Acetone Level Radiology Impressions: Radiology Impressions Chest X-Ray 04/18/18 06:00 IMPRESSION: No active disease. Head CT 04/18/18 07:00 IMPRESSION: Probable diffuse hypoxic insult with diffuse cerebral edema and loss of pablo/white matter differentiation. No evidence of herniation. No focal vascular territorial infarct. Chronic pansinusitis. Mild nonspecific bilateral mastoid effusion. The preliminary findings for this examination were reported by [facility] Radiology at 6:45 a.m. on 04/18/2018. There is concurrence of this report with the preliminary findings. Critical Care Progress Note - Nutrition Nutrition: Nutrition Category Date Time Status NPO Diet [DIET] Diets 04/13/18 Dinner Active Assessment/Plan - Assessment and Plan (Free Text) Plan: Above patient seen and examined at bedside. vitals reveiwed Patient was on nikbex ggt and paralyzed -will d/c paralytic -Family (sister and sister in law) work at [employer] [facility] and [facility] and reqeusted transfer to [facility] -d/c transfer center at [facility] an d/w bottle carrier Dr. Mejía at [facility]. currently no beds available. -Patient is breathing above the vent (triggering above the vent) -Off pressors -check for DVT (fever with no leukocytosis) -continue to monitor -d/w patient's who requested to d/c DNR and reqeusted trach and PEG (family was aware of medical terminology and future management from other family memb ers working at [employer] and [facility]) -avoid hypotonic fluid, -contineu Ng tube feeds -Hypoxic brain injury: continue to monitor -EKG reveals ST changes V3-V4, V5 -continue treatment as per cardiology -contineu dvt/pud ppx -prognosis guarded cc time 55 minutes - Date & Time Date: 04/18/18 Time: 18:38
[2018-04-18] MEDS ORDERED: Potassium Chloride 20 mEq/15 ml LIQ UD PO ONE (07:30)
--- NOTE | 2018-04-18 07:45 | CP.PCM.PN ---
Subjective - Date & Time of Evaluation Date of Evaluation: 04/18/18 Time of Evaluation: 07:30 - Subjective Subjective: Hospitalist Progress Note Patient was seen and examined at 7:30 AM 04/18/18 with NO family at bedside at time of exam. 43 year old male who was admitted after cardiopulmonary arrest. Anoxic brain injury is suspected. He is currently intubated and on Nimbex, Propofol, Vimpat and Midazolam. Hypothermic protocol was completed 04/15/18. Video EEG was completed and official read is pending. He is on Zosyn and Vancomycin for leukocytosis with Blood Culture 04/13/18 currently negative to date and Urine Cultures 04/13/18 and 04/14/18 showing NO gowth. Neurology Dr. Snider is on board and has informed Son Jer and of poor prognosis Son Jer and Patient's met with Palliative Care Nurse Micaela on 04/15/18 and family decided to make patient DNR. Neurology [employer] SALES ENGINEER Evgeny spoke with Anders Randle and he has expressed that family is considering terminal extubation Information concerning patient status should be discussed with Son Jer and patient only. Spoke with Nurse Rodriguez caring for patient overnight: Time of cleaning patient indicated skin to be intact without any ulcerations/breakdown Producing adequate amount of urine: over 1 L from 7 AM to 7 PM Shift NO bowel movement over night Fever of 100.1 F at the present time 04/18/18: one dose of Tylenol 650 mg via OGT ordered being mindful of the elevated LFT Na level has stablized after discontinuation of free water flushes on 04/17/18 Vancomycin Trough 5.5 on 04/17/18 He is on Jevity 50 ml/hr via OGT Chest X Ray 04/18/18: follow up official report but appears to be unchanged compared to 04/16/18 and 04/17/18 The following studies have been performed: 1). CT Head (04/18/18): read is pending 2). EEG (04/15/18): This is an abnormal EEG record that demonstrate the presence of severe non specific diffuse disturbance of cortical activity, this is keeping with a diffuse pablo matter dysfunction, these findings are not specific. There were rhythmic muscle artifact seen, most likely mycolonus, this are usually seen in hypoxic brain insults, please correlate clinically. No seizures. Patient is not in status epilepticus 3). CT Head (04/15/18): Extensive diffuse homogeneous appearance of the brain parenchyma with loss of the cortico-medullary distinction and on diminution of cerebral sulci. Findings consistent with sequela diffuse hypoxia. 4). CT Head (04/14/18): Little interval change in mild diffuse effacement of cortical sulci and indistinct pablo-white matter differentiation related to hypoxic-anoxic insult with the stated clinical history. 5). CT Head (04/13/18): No acute intracranial hemorrhage. There is mild homogeneous appearance of the brain parenchyma with subtle indistinct appearance of the cortico-medullary junction. Findings could represent mild diffuse cerebral edema related to hypoxia however clinical correlation suggested. He is on the following medications: Cisatracurium 100 mg Q6H PRN Lacosamide 100 mg IV Q12H Levetiracetam 1,5000 mg IV Q12H Midazolam 100 mg IV Q24H Propofol Drip Valproate 1,000 mg IV Q12H Zosyn 3.375 gm IV Q8H Vancomycin 1 gm IV Q24H Levothyroxine 75 mcg via OGT 1x/day Protonix 40 mg IV Q24H Heparin 5,000 Units SC Q8H Aspart ISS Q6H Jevity @ 50 ml/hr NS @ 50 ml/hr ROS is not possible due to patient unresponsiveness General: Intubated on vent with NGT, Jerking movements not noted at the time of my exam 04/18/18 HEENT: Pupils are now pinpoint and sluggishly reactive to light, NO lymphadenopathy, NO thyromegaly Cardio: NS1 and NS2, NO M/R/G with tachycardia Resp: Breath sounds are clear today 04/18/18 GI: Central Obesity, BS are decreased in all 4 quadrants, Soft Ext: Pulses are strong and equal upper and lower extremities, NO edema, Capillary refill is 2 seconds Neuro: exam is not possible Assessments: 1). Anoxic Brain Injury Status: Acute 2). Acute Respiratory Failure Status: Acute 3). Cardiac Arrest Status: Acute 4). Myoclonic Movements Status: Acute 5). Leukocytosis Status: Acute 6). Hx Hypothyroidism Status: Chronic Yosvany Riddle D.O. [phone] Objective - Vital Signs/Intake and Output Vital Signs (last 24 hours): Temp Pulse Resp BP Pulse Ox 99.8 F H 97 H 19 127/79 100 04/18/18 04:00 04/18/18 07:00 04/18/18 07:00 04/18/18 07:00 04/18/18 07:00 Intake and Output: 04/18/18 04/18/18 06:59 18:59 Intake Total 1822.2 175.2 Output Total 1050 100 Balance 772.2 75.2 - Medications Medications: Current Medications Acetaminophen (Tylenol 325mg Tab) 650 mg PO STAT STA Stop: 04/18/18 07:40 Heparin Sodium (Porcine) (Heparin) 5,000 units SC Q8 [facility] Last Admin: 04/18/18 05:25 Dose: 5,000 units Cisatracurium Besylate 100 mg/ (Dextrose) 250 mls @ 41.03 mls/hr IV .Q6H6M PRN; Protocol PRN Reason: Seizure activity Last Titration: 04/17/18 05:35 Dose: 0.7 mcg/kg/min, 9.57 mls/hr Piperacillin Sod/Tazobactam (Sod 3.375 gm/ Sodium Chloride) 100 mls @ 200 mls/hr IVPB Q8H [facility]; Protocol Last Admin: 04/18/18 06:55 Dose: 200 mls/hr Levetiracetam 1,500 mg/ (Dextrose) 115 mls @ 420 mls/hr IVPB Q12H [facility] Last Admin: 04/18/18 01:30 Dose: 420 mls/hr Vancomycin/Sodium Chloride (Vancomycin 1 Gm/Ns 200 Ml) 1 gm in 200 mls @ 67 mls/hr IVPB Q12H [facility]; Protocol Stop: 04/18/18 16:01 Last Admin: 04/18/18 04:15 Dose: 67 mls/hr Propofol (Diprivan) 1,000 mg in 100 mls @ 2.735 mls/hr IV .Q24H PRN; Protocol PRN Reason: TITRATE PER MD ORDER Last Admin: 04/18/18 01:30 Dose: 20 mcg/kg/min, 10.941 mls/hr Sodium Chloride (Sodium Chloride 0.9%) 1,000 mls @ 50 mls/hr IV .Q20H [facility] Last Admin: 04/18/18 04:15 Dose: 50 mls/hr Valproate Sodium 1,000 mg/ (Sodium Chloride) 110 mls @ 100 mls/hr IVPB Q12H [facility] Last Admin: 04/18/18 05:50 Dose: 100 mls/hr Lacosamide 100 mg/ Sodium (Chloride) 60 mls @ 100 mls/hr IVPB Q12H [facility] Last Admin: 04/17/18 21:00 Dose: 100 mls/hr Midazolam HCl 100 mg/ Dextrose 100 mls @ 0.92 mls/hr IV .Q24H [facility]; Protocol Last Admin: 04/17/18 21:00 Dose: 0.05 mg/kg/hr, 4.58 mls/hr Insulin Aspart (Novolog) 0 unit SC Q6 [facility]; Protocol Last Admin: 04/18/18 06:00 Dose: Not Given Levothyroxine Sodium (Synthroid) 75 mcg PO DAILY@0630 [facility] Last Admin: 04/18/18 05:30 Dose: 75 mcg Lorazepam (Ativan) 1 mg IVP Q4H PRN PRN Reason: Seizure activity Last Admin: 04/18/18 05:25 Dose: 1 mg Pantoprazole Sodium (Protonix Inj) 40 mg IVP DAILY [facility] Last Admin: 04/17/18 09:08 Dose: 40 mg Potassium Phos/Sodium Phos (Neutra-Phos) 1 pkt NG TID [facility] Stop: 04/20/18 10:01 Last Admin: 04/17/18 17:39 Dose: Not Given - Labs Labs: 04/18/18 06:02 04/18/18 06:00 PT 13.0 SECONDS (9.7-12.2) H 04/15/18 06:14 INR 1.2 04/15/18 06:14 APTT 28 SECONDS (21-34) 04/15/18 06:14
[2018-04-18] MEDS: LACOSAMIDE IVPB SCH ×2 (08:02→20:30)
[2018-04-18] MEDS: SODIUM CHLORIDE 0.9% IVPB SCH ×2 (08:02→20:30)
[2018-04-18] MEDS: Cisatracurium Besylate 100 MG in Dextrose 5% In Water 240 ML IV PRN (08:04)
--- NOTE | 2018-04-18 08:53 | CT ---
Date of service: 04/18/2018 PROCEDURE: CT HEAD WITHOUT CONTRAST. HISTORY: re-eval cerebral edema COMPARISON: 04/15/2018 TECHNIQUE: Axial computed tomography images were obtained through the head/brain without intravenous contrast. Radiation dose: Total exam DLP = 1183.8 mGy-cm. This CT exam was performed using one or more of the following dose reduction techniques: Automated exposure control, adjustment of the mA and/or kV according to patient size, and/or use of iterative reconstruction technique. FINDINGS: HEMORRHAGE: No intracranial hemorrhage. BRAIN: Loss of normal pablo-white matter differentiation. Marked narrowing of the sulci diffusely about the cerebrum. Findings consistent with probable diffuse cerebral edema, likely post hypoxic insult. This is unchanged in appearance from 04/15/2018. No evidence of acute vascular territorial infarct. VENTRICLES: Unremarkable. No hydrocephalus. CALVARIUM: Unremarkable. PARANASAL SINUSES: Chronic pansinusitis. MASTOID AIR CELLS: Nonspecific bilateral mastoid effusion. OTHER FINDINGS: None. IMPRESSION: Probable diffuse hypoxic insult with diffuse cerebral edema and loss of pablo/white matter differentiation. No evidence of herniation. No focal vascular territorial infarct. Chronic pansinusitis. Mild nonspecific bilateral mastoid effusion. The preliminary findings for this examination were reported by [facility] at 6:45 a.m. on 04/18/2018. There is concurrence of this report with the preliminary findings.
[2018-04-18] MEDS: Potassium & Sodium Phosphate NG SCH ×2 (09:10→14:28)
--- NOTE | 2018-04-18 12:04 | CP.PCM.PN ---
Subjective - Date & Time of Evaluation Date of Evaluation: 04/18/18 Time of Evaluation: 11:46 - Subjective Subjective: Neuro Follow-Up: evaluated this morning in the ICU. Family present at bedside. Per son the pt has not had much "shaking" this morning. Pt remains intubated, on sedation. Does not follow commands. ROS unobtainable from pt 2/2 his current status Objective - Vital Signs/Intake and Output Vital Signs (last 24 hours): Temp Pulse Resp BP Pulse Ox 99.8 F H 109 H 22 120/72 99 04/18/18 09:05 04/18/18 10:00 04/18/18 10:00 04/18/18 10:00 04/18/18 10:00 Intake and Output: 04/18/18 04/18/18 06:59 18:59 Intake Total 1822.2 1141.6 Output Total 1050 335 Balance 772.2 806.6 - Medications Medications: Current Medications Heparin Sodium (Porcine) (Heparin) 5,000 units SC Q8 [facility] Last Admin: 04/18/18 05:25 Dose: 5,000 units Cisatracurium Besylate 100 mg/ (Dextrose) 250 mls @ 41.03 mls/hr IV .Q6H6M PRN; Protocol PRN Reason: Seizure activity Last Titration: 04/18/18 10:25 Dose: 0.5 mcg/kg/min, 6.84 mls/hr Piperacillin Sod/Tazobactam (Sod 3.375 gm/ Sodium Chloride) 100 mls @ 200 mls/hr IVPB Q8H [facility]; Protocol Last Admin: 04/18/18 06:55 Dose: 200 mls/hr Levetiracetam 1,500 mg/ (Dextrose) 115 mls @ 420 mls/hr IVPB Q12H [facility] Last Admin: 04/18/18 01:30 Dose: 420 mls/hr Vancomycin/Sodium Chloride (Vancomycin 1 Gm/Ns 200 Ml) 1 gm in 200 mls @ 67 mls/hr IVPB Q12H [facility]; Protocol Stop: 04/18/18 16:01 Last Admin: 04/18/18 04:15 Dose: 67 mls/hr Propofol (Diprivan) 1,000 mg in 100 mls @ 2.735 mls/hr IV .Q24H PRN; Protocol PRN Reason: TITRATE PER MD ORDER Last Admin: 04/18/18 09:09 Dose: 20 mcg/kg/min, 10.941 mls/hr Sodium Chloride (Sodium Chloride 0.9%) 1,000 mls @ 50 mls/hr IV .Q20H [facility] Last Admin: 04/18/18 04:15 Dose: 50 mls/hr Valproate Sodium 1,000 mg/ (Sodium Chloride) 110 mls @ 100 mls/hr IVPB Q12H [facility] Last Admin: 04/18/18 05:50 Dose: 100 mls/hr Lacosamide 100 mg/ Sodium (Chloride) 60 mls @ 100 mls/hr IVPB Q12H [facility] Last Admin: 04/18/18 08:02 Dose: 100 mls/hr Midazolam HCl 100 mg/ Dextrose 100 mls @ 0.92 mls/hr IV .Q24H [facility]; Protocol Last Titration: 04/18/18 10:26 Dose: 0.06 mg/kg/hr, 5.5 mls/hr Insulin Aspart (Novolog) 0 unit SC Q6 [facility]; Protocol Last Admin: 04/18/18 06:00 Dose: Not Given Levothyroxine Sodium (Synthroid) 75 mcg PO DAILY@0630 [facility] Last Admin: 04/18/18 05:30 Dose: 75 mcg Lorazepam (Ativan) 1 mg IVP Q4H PRN PRN Reason: Seizure activity Last Admin: 04/18/18 05:25 Dose: 1 mg Pantoprazole Sodium (Protonix Inj) 40 mg IVP DAILY [facility] Last Admin: 04/18/18 09:08 Dose: 40 mg Potassium Phos/Sodium Phos (Neutra-Phos) 1 pkt NG TID [facility] Stop: 04/20/18 10:01 Last Admin: 04/18/18 09:10 Dose: Not Given - Labs Labs: 04/18/18 06:02 04/18/18 06:00 PT 13.0 SECONDS (9.7-12.2) H 04/15/18 06:14 INR 1.2 04/15/18 06:14 APTT 28 SECONDS (21-34) 04/15/18 06:14 - Constitutional Appears: Other (intubated on sedation; doesn't follow commands) - Head Exam Head Exam: NORMAL INSPECTION, NORMOCEPHALIC - Eye Exam Eye Exam: absent: EOMI, Normal appearance, PERRL Pupil Exam: absent: NORMAL ACCOMODATION Additional comments: Pupils fixed, 2 mm b/l No dolls eyes No corneals - ENT Exam ENT Exam: Mucous Membranes Moist (intubated) - Neck Exam Neck Exam: Normal Inspection - Respiratory Exam Respiratory Exam: absent: NORMAL BREATHING PATTERN (intubated; breathing over vent occassionally) - Cardiovascular Exam Cardiovascular Exam: Tachycardia (102) - Extremities Exam Extremities Exam: absent: Calf Tenderness, Full ROM, Pedal Edema Additional comments: extremities flaccid today - Neurological Exam Neurological Exam: Altered Additional comments: Pt is intubated, on sedation Does not follow commands Pupils fixed at 2 mm; no corneals or dolls eyes No purposeful or non-purposeful movements noted Extremities flaccid today No myoclonic movements noted today Gag reflex present on and off---may not be accurate 2/2 medications pt currently on. Unable to elicit plantar reflex b/l Normal patellar reflex to RLE; hyporeflexia to LLE - Skin Skin Exam: Normal Color Assessment and Plan (1) Anoxic brain injury Assessment & Plan: Imaging reviewed: -CT Head (04/18/18): Probable diffuse hypoxic insult with diffuse cerebral edema and loss of pablo/white matter differentiation. No evidence of herniation. No focal vascular territorial infarct. Chronic pansinusitis. Mild nonspecific bilateral mastoid effusion. -EEG (04/15/18): This is an abnormal EEG record that demonstrate the presence of severe non specific diffuse disturbance of cortical activity, this is keeping with a diffuse pablo matter dysfunction, these findings are not specific. There were rhythmic muscle artifact seen, most likely mycolonus, this are usually seen in hypoxic brain insults, please correlate clinically. No seizures. Patient is not in status epilepticus -CT head (04/15/18): Extensive diffuse homogeneous appearance of the brain parench yma with loss of the corticomedullary distinction and on diminution of cerebral sulci. Findings consistent with sequela diffuse hypoxia. -CT head (04/14/18): Little interval change in mild diffuse effacement of cortical sulci and indistinct pablo-white matter differentiation related to hypoxic-anoxic insult with the stated clinical history. -CT head (04/13/18): No acute intracranial hemorrhage. There is mild homogeneous appearance of the brain parenchyma with subtle indistinct appearance of the cor ticomedullary junction. Findings could represent mild diffuse cerebral edema related to hypoxia however clinical correlation suggested. -Continue Keppra, Valproic Acid, and Vimpat as ordered. Continue sedation per ICU orders. -Continue ICU management. -Dr. Snider spoke with son and pt's at length this week regarding VEEG findings and poor prognosis. I spoke with pt's son and again this morning and answered all questions and concerns. Per the son, the family is thinking of terminal extubation over the weekend. , however, verbalized that she may want a repeat CT Head over the weekend. I encouraged family to discuss amongst themselves how they would want to proceed in the case that pt has no improvement over this weekend. -Discussed with Dr. Kidd and primary RN. -Notify neuro if there is any acute change in pt's condition. Sharifa Pepper, [place], SENIOR QA ENGINEER Discussed with Dr. Snider Status: Acute
[2018-04-18] MEDS: Midazolam 50 mg/10 ml 100 MG in Dextrose 5% In Water 80 ML IV SCH ×2 (12:22→21:15)
--- NOTE | 2018-04-18 12:55 | RAD ---
Date of service: 04/18/2018 HISTORY: intubated COMPARISON: 04/17/2018 FINDINGS: LUNGS: No active pulmonary disease. PLEURA: No significant pleural effusion identified, no pneumothorax apparent. CARDIOVASCULAR: No aortic atherosclerotic calcification present. Normal cardiac size. ET tube and NG tube unchanged. Right PICC catheter unchanged. OSSEOUS STRUCTURES: No significant abnormalities. VISUALIZED UPPER ABDOMEN: Normal. OTHER FINDINGS: None. IMPRESSION: No active disease.
--- NOTE | 2018-04-18 13:21 | PCM.VEEG ---
Video EEG - Procedure Start Date: 04/16/18 Start Time: 13:00 End Date: 04/17/18 End Time: 09:00 Technical Summary: EEg was acquired using the 10/20 international electrode system, where electrodes are referenced to A1 A2, P1 P2 respectively. Lito and seizure detection software was used and reviewed by electroencephalographer. - Interpretation Description of the study: There was no clear posterior dominant rhythm, rather a continuous 1-2 per second BIPLED, GPED activity that did not evolve or become a subclinical seizure. There was no normal sleep or spindles captured. There were no clinical or subclinical seizures. There were frequent myoclonic jerks noted that were not associated with seizures, but with muscular activity. - Impression Impression: This is an abnormal video EEG.that shows GPEDS, and BIPLEDs, indicative of severe anoxic injury. THere are no seizures at this time. Thank you Dr. Snider Neurology
--- NOTE | 2018-04-18 14:18 | CP.PCM.PN ---
Subjective - Date & Time of Evaluation Date of Evaluation: 04/18/18 Time of Evaluation: 14:17 - Subjective Subjective: Nephrology Consultation Note: Assessment: critical transinet oliguria likely hemodynamic resolved Acute kidney injury hypophosphatemia hypokalemia cardio-pulmonary arrest with shock liver and brain edema, anoxic brain injury obesity hypothyroidism opiates + Plan No acute need for renal replacement therapy at this time. Maintain hemodynamics stable. Avoid hypotension. Monitor Input/Output, daily weights and renal function with basic metabolic panel cardiology and neuro following supplement lytes as needed. continue with IVF Dose meds/antibiotics for GFR >60 Glycemic control Further work up/management as per primary team Thanks for allowing me to participate in care of your patient. Will sign off and follow patient with you further PRN basis. Please call if any Qs. had d/w team and family bedside Dr Noble Miller Office: [phone] Chief Complaint; unable Reason for consult: oliguria HPI: Pt is a 43 M with hx of obesity hypothyroidism was brought with complaints of cardio-pulmonary arrest. s/p CPR and intubation, hypothermia protocol. noted decreased urine output overnigt hence renal consulted no known OTC/herbal meds or NSAIDs Noted recent iodinated contrast exposure as s/p cardiac cath. opiates + ROS: unable to obtain from pt Physical Examination: General Appearance: Comfortable, ill appearing orally intubated Vitals reviewed and noted as below Head; Atraumatic, normocephalic ENT: intubated Neck; supple no lymphadenopathy, no thyromegaly or bruit Lungs: Normal respiratory rate/effort. Breath sounds bilateral equal and clear Heart: Increased rate. s1s2 normal. No rub or gallop. Extremities: no edema. No varicose veins Neurological: Patient is unresponsive sedated Skin: Warm and dry. Normal turgor. No rash. Palpitation: Normal elasticity for age Abdomen: Abdomen is soft. Bowel sounds +. There is no abdominal tenderness, no guarding/rigidity no organomegaly Psych: unable MSK: no joint tenderness or swelling. Digits and nails normal, no deformity : kidney or bladder not palpable. has terry Labs/imaging reviewed. Past medical history, past surgical history, family history, social history, allergy reviewed and noted as below Family hx: no hx of CKD. Rest non-contributory Objective - Vital Signs/Intake and Output Vital Signs (last 24 hours): Temp Pulse Resp BP Pulse Ox 101.2 F H 102 H 19 107/65 99 04/18/18 13:02 04/18/18 13:00 04/18/18 13:00 04/18/18 13:00 04/18/18 13:00 Intake and Output: 04/18/18 04/18/18 06:59 18:59 Intake Total 1822.2 1752.3 Output Total 1050 465 Balance 772.2 1287.3 - Medications Medications: Current Medications Heparin Sodium (Porcine) (Heparin) 5,000 units SC Q8 [facility] Last Admin: 04/18/18 05:25 Dose: 5,000 units Cisatracurium Besylate 100 mg/ (Dextrose) 250 mls @ 41.03 mls/hr IV .Q6H6M PRN; Protocol PRN Reason: Seizure activity Last Titration: 04/18/18 12:08 Dose: 0.3 mcg/kg/min, 4.1 mls/hr Piperacillin Sod/Tazobactam (Sod 3.375 gm/ Sodium Chloride) 100 mls @ 200 mls/hr IVPB Q8H [facility]; Protocol Last Admin: 04/18/18 06:55 Dose: 200 mls/hr Levetiracetam 1,500 mg/ (Dextrose) 115 mls @ 420 mls/hr IVPB Q12H [facility] Last Admin: 04/18/18 01:30 Dose: 420 mls/hr Vancomycin/Sodium Chloride (Vancomycin 1 Gm/Ns 200 Ml) 1 gm in 200 mls @ 67 mls/hr IVPB Q12H [facility]; Protocol Stop: 04/18/18 16:01 Last Admin: 04/18/18 04:15 Dose: 67 mls/hr Propofol (Diprivan) 1,000 mg in 100 mls @ 2.735 mls/hr IV .Q24H [facility]; Protocol PRN Reason: TITRATE PER MD ORDER Last Admin: 04/18/18 09:09 Dose: 20 mcg/kg/min, 10.941 mls/hr Sodium Chloride (Sodium Chloride 0.9%) 1,000 mls @ 50 mls/hr IV .Q20H [facility] Last Admin: 04/18/18 04:15 Dose: 50 mls/hr Valproate Sodium 1,000 mg/ (Sodium Chloride) 110 mls @ 100 mls/hr IVPB Q12H [facility] Last Admin: 04/18/18 05:50 Dose: 100 mls/hr Lacosamide 100 mg/ Sodium (Chloride) 60 mls @ 100 mls/hr IVPB Q12H [facility] Last Admin: 04/18/18 08:02 Dose: 100 mls/hr Midazolam HCl 100 mg/ Dextrose 100 mls @ 0.92 mls/hr IV .Q24H [facility]; Protocol Last Admin: 04/18/18 12:22 Dose: 0.07 mg/kg/hr, 6.42 mls/hr Insulin Aspart (Novolog) 0 unit SC Q6 [facility]; Protocol Last Admin: 04/18/18 12:50 Dose: Not Given Levothyroxine Sodium (Synthroid) 75 mcg PO DAILY@0630 [facility] Last Admin: 04/18/18 05:30 Dose: 75 mcg Lorazepam (Ativan) 1 mg IVP Q4H PRN PRN Reason: Seizure activity Last Admin: 04/18/18 05:25 Dose: 1 mg Pantoprazole Sodium (Protonix Susp) 40 mg GT DAILY [facility] Potassium Phos/Sodium Phos (Neutra-Phos) 1 pkt NG TID [facility] Stop: 04/20/18 10:01 Last Admin: 04/18/18 09:10 Dose: Not Given - Labs Labs: 04/18/18 06:02 04/18/18 06:00 PT 13.0 SECONDS (9.7-12.2) H 04/15/18 06:14 INR 1.2 04/15/18 06:14 APTT 28 SECONDS (21-34) 04/15/18 06:14
[2018-04-18] MEDS ORDERED: Acetaminophen 650mg/20.3ml solution UD NG STA (20:21)
[2018-04-19] MEDS: (Novolog) Insulin Aspart, Recombinant 100 u/ml 10 ml vial SC SCH ×4 (00:58→17:43)
[2018-04-19] MEDS: Propofol 10 mg/ml 1,000 MG/100 ML VIAL IV PRN ×3 (02:33→21:40)
[2018-04-19] MEDS: Valproate 1,000 MG in Sodium Chloride 0.9% 100 ML IVPB SCH ×2 (05:12→17:07)
[2018-04-19 05:40] LABS: ABG ALLEN TEST POS; ARTERIAL BLOOD GAS HCO3 26.8 mmol/L (21-28); ARTERIAL BLOOD GAS O2 SAT 99.4 % (95-98); ARTERIAL BLOOD GAS PCO2 30 mm/Hg (35-45); ARTERIAL BLOOD GAS PH 7.52 (7.35-7.45); ARTERIAL BLOOD GAS PO2 109 mm/Hg (80-100); ARTERIAL BLOOD GAS TCO2 25.4 mmol/L (22-28)
[2018-04-19] MEDS: Levothyroxine 75 MCG TAB PO SCH (05:42)
[2018-04-19] MEDS: Piperacillin/Tazobact 3.375 GM in Sodium Chloride 100 ML IVPB SCH ×3 (05:42→21:40)
[2018-04-19 06:35] LABS: BASO % 0.4 % (0.0-2.0); EOS # 0.7 K/uL (0.0-0.7); EOS % 8.8 % (0.0-4.0); HEMOGLOBIN 12.7 g/dL (12.0-18.0); LYMPH # 1.2 K/uL (1.0-4.3); LYMPH % 14.9 % (20.0-40.0); MEAN CELL VOLUME 93.1 fL (80.0-94.0); MEAN CORPUSCULAR HEMOGLOBIN 31.6 pg (27.0-31.0); MEAN CORPUSCULAR HGB CONC 33.9 g/dL (33.0-37.0); MEAN PLATELET VOLUME 7.7 fL (7.2-11.7); MONO # 0.6 K/uL (0.0-0.8); MONO % 7.9 % (0.0-10.0); NEUT # 5.4 K/uL (1.8-7.0); RBC 4.04 Mil/uL (4.40-5.90); RED CELL DISTRIBUTION WIDTH 12.5 % (11.5-14.5)
[2018-04-19 06:46] LABS: ALB/GLOB RATIO 1.1 (1.0-2.1); ALBUMIN 2.9 g/dL (3.5-5.0)
[2018-04-19 07:10] LABS: ALT/SGPT 63 U/L (21-72); AST/SGOT 100 U/L (17-59); BLOOD UREA NITROGEN 25 mg/dL (9-20); CALCIUM 8.3 mg/dl (8.6-10.4); GFR NON-AFRICAN AMERICAN > 60
--- NOTE | 2018-04-19 07:48 | CP.PCM.PN ---
Subjective - Date & Time of Evaluation Date of Evaluation: 04/19/18 Time of Evaluation: 07:30 - Subjective Subjective: Hospitalist Progress Note Patient was seen and examined at 7:30 AM 04/19/18 with NO family at bedside at time of exam. 43 year old male who was admitted after cardiopulmonary arrest. Anoxic brain injury is suspected. He is currently intubated and on Nimbex, Propofol, Vimpat and Midazolam. Hypothermic protocol was completed 04/15/18. Video EEG was completed and official read is pending. He is on Zosyn and Vancomycin for leukocytosis with Blood Culture 04/13/18 currently negative to date and Urine Cultures 04/13/18 and 04/14/18 showing NO gowth. In light of the high fevers on 04/19/18, repeat Urine and Blood Cultures ordered. Neurology Dr. Snider is on board and has informed Son Jer and of poor prognosis Son Jer and Patient's met with Palliative Care Nurse Micaela on 04/15/18 and family decided to make patient DNR. Spoke with Nurse Parsons morning 04/19/18 and was informed that patient's DNR was rescinded and patient is now FULL CODE as family felt patient's hands move on 04/18/18. Information concerning patient status should be discussed with Son Jer and patient only. Spoke with Nurse Parsons 04/19/18 caring for patient overnight: Time of cleaning patient indicated skin to be intact without any ulcerations/breakdown Producing adequate amount of urine: over 1 L from 7 AM to 7 PM Shift 3 pasty nonbloody/nonblack bowel movements overnight Fever of 102.9 F at 4 AM and 5 AM 04/19/18: responding to axillary ice packs Na level has stablized after discontinuation of free water flushes on 04/17/18 Vancomycin Trough 5.5 on 04/17/18 He is on Jevity 50 ml/hr via OGT Chest X Ray 04/18/18: NO active disease Follow up Chest X Ray from this morning 04/19/18 The following studies have been performed: 1). Video EEG (04/18/18): This is an abnormal video EEG. Shows GPEDS, and BIPLEDs, indicative of severe anoxic injury. There are no seizures at this time. 2). CT Head (04/18/18): Probable diffuse hypoxic insult with diffuse cerebral edema and loss of pablo/white matter differentiation. NO evidence of herniation. NO focal vascular territorial infarct. Chronis pansinusitis. Mild nonspecific bilateral mastoid effusion. 3). EEG (04/15/18): This is an abnormal EEG record that demonstrate the presence of severe non specific diffuse disturbance of cortical activity, this is keeping with a diffuse pablo matter dysfunction, these findings are not specific. There were rhythmic muscle artifact seen, most likely mycolonus, this are usually seen in hypoxic brain insults, please correlate clinically. No seizures. Patient is not in status epilepticus 4). CT Head (04/15/18): Extensive diffuse homogeneous appearance of the brain parenchyma with loss of the cortico-medullary distinction and on diminution of cerebral sulci. Findings consistent with sequela diffuse hypoxia. 5). CT Head (04/14/18): Little interval change in mild diffuse effacement of cortical sulci and indistinct pablo-white matter differentiation related to hypoxic-anoxic insult with the stated clinical history. 6). CT Head (04/13/18): No acute intracranial hemorrhage. There is mild homogeneous appearance of the brain parenchyma with subtle indistinct appearance of the cortico-medullary junction. Findings could represent mild diffuse cerebral edema related to hypoxia however clinical correlation suggested. He is on the following medications: Cisatracurium 100 mg Q6H PRN Lacosamide 100 mg IV Q12H Levetiracetam 1,5000 mg IV Q12H Midazolam 100 mg IV Q24H Propofol Drip Valproate 1,000 mg IV Q12H Zosyn 3.375 gm IV Q8H Vancomycin 1 gm IV Q24H Levothyroxine 75 mcg via OGT 1x/day Protonix 40 mg IV Q24H Heparin 5,000 Units SC Q8H Aspart ISS Q6H Jevity @ 50 ml/hr NS @ 50 ml/hr ROS is not possible due to patient unresponsiveness General: Intubated on vent with NGT, Jerking movements not noted at the time of my exam 04/18/18 HEENT: Pupils are now pinpoint and sluggishly reactive to light, NO lymphadenopathy, NO thyromegaly Cardio: NS1 and NS2, NO M/R/G with tachycardia Resp: Breath sounds are clear today 04/19/18 GI: Central Obesity, BS are decreased in all 4 quadrants, Soft Ext: Pulses are strong and equal upper and lower extremities, NO edema, Capillary refill is 2 seconds Neuro: exam is not possible Assessments: 1). Anoxic Brain Injury Status: Acute 2). Acute Respiratory Failure Status: Acute 3). Cardiac Arrest Status: Acute 4). Myoclonic Movements Status: Acute 5). Leukocytosis Status: Acute 6). Hx Hypothyroidism Status: Chronic Yosvany Riddle D.O. [phone] Objective - Vital Signs/Intake and Output Vital Signs (last 24 hours): Temp Pulse Resp BP Pulse Ox 101.3 F H 97 H 18 132/84 100 04/19/18 06:02 04/19/18 06:03 04/19/18 06:03 04/19/18 06:03 04/19/18 06:03 Intake and Output: 04/19/18 04/19/18 06:59 18:59 Intake Total 1749.1 Output Total 670 Balance 1079.1 - Medications Medications: Current Medications Aspirin (Aspirin Chewable) 81 mg PO DAILY [facility] Heparin Sodium (Porcine) (Heparin) 5,000 units SC Q8 [facility] Last Admin: 04/19/18 05:43 Dose: 5,000 units Piperacillin Sod/Tazobactam (Sod 3.375 gm/ Sodium Chloride) 100 mls @ 200 mls/hr IVPB Q8H [facility]; Protocol Last Admin: 04/19/18 05:42 Dose: 200 mls/hr Levetiracetam 1,500 mg/ (Dextrose) 115 mls @ 420 mls/hr IVPB Q12H [facility] Last Admin: 04/19/18 01:47 Dose: 420 mls/hr Propofol (Diprivan) 1,000 mg in 100 mls @ 2.735 mls/hr IV .Q24H PRN; Protocol PRN Reason: TITRATE PER MD ORDER Last Admin: 04/19/18 02:33 Dose: 15 mcg/kg/min, 8.205 mls/hr Sodium Chloride (Sodium Chloride 0.9%) 1,000 mls @ 50 mls/hr IV .Q20H [facility] Last Admin: 04/18/18 15:11 Dose: Not Given Valproate Sodium 1,000 mg/ (Sodium Chloride) 110 mls @ 100 mls/hr IVPB Q12H [facility] Last Admin: 04/19/18 05:12 Dose: 100 mls/hr Lacosamide 100 mg/ Sodium (Chloride) 60 mls @ 100 mls/hr IVPB Q12H [facility] Last Admin: 04/18/18 20:30 Dose: 100 mls/hr Midazolam HCl 100 mg/ Dextrose 100 mls @ 0.92 mls/hr IV .Q24H [facility]; Protocol Last Admin: 04/18/18 21:15 Dose: Not Given Insulin Aspart (Novolog) 0 unit SC Q6 [facility]; Protocol Last Admin: 04/19/18 06:29 Dose: Not Given Levothyroxine Sodium (Synthroid) 75 mcg PO DAILY@0630 [facility] Last Admin: 04/19/18 05:42 Dose: 75 mcg Lorazepam (Ativan) 1 mg IVP Q4H PRN PRN Reason: Seizure activity Last Admin: 04/19/18 01:58 Dose: 1 mg Pantoprazole Sodium (Protonix Susp) 40 mg GT DAILY [facility] Rosuvastatin Calcium (Crestor) 5 mg PO HS [facility] Last Admin: 04/18/18 22:00 Dose: 5 mg - Labs Labs: 04/19/18 06:21 04/19/18 06:21 PT 13.0 SECONDS (9.7-12.2) H 04/15/18 06:14 INR 1.2 04/15/18 06:14 APTT 28 SECONDS (21-34) 04/15/18 06:14
[2018-04-19] MEDS: Sodium Chloride 0.9% 1,000 ML IV SCH ×2 (07:57→11:17)
--- NOTE | 2018-04-19 08:20 | CP.PCM.PN ---
Subjective - Date & Time of Evaluation Date of Evaluation: 04/18/18 Time of Evaluation: 18:40 - Subjective Subjective: Patient seen and evaluated Unresponsive On Ventilator Physical Examination - Constitutional Appears: Other (intubated, on sedation, does not follow commands) - Head Exam Head Exam: NORMAL INSPECTION, NORMOCEPHALIC - Eye Exam Eye Exam: absent: Normal appearance, PERRL Pupil Exam: absent: NORMAL ACCOMODATION, PERRL Additional comments: Pupils fixed at 6 mm b/l No corneals No dolls eyes - ENT Exam ENT Exam: Mucous Membranes Moist (intubated) - Neck Exam Neck Exam: Normal Inspection - Respiratory Exam Respiratory Exam: absent: NORMAL BREATHING PATTERN (intubated) - Cardiovascular Exam Cardiovascular Exam: Tachycardia (130's) - Extremities Exam Extremities Exam: absent: Full ROM Additional comments: + tone noted to LUE, lessened to RUE - Neurological Exam Neurological Exam: Altered Additional comments: Pt is intubated, on sedation Does not follow commands Pupils fixed at 6 mm; no corneals or dolls eyes No purposeful or non-purposeful movements noted + tone to LUE, lessened to RUE + myoclonic movements noted to BUE intermittently Toes upgoing to right foot Normal patellar reflex to RLE; hyporeflexia to LLE Objective - Vital Signs/Intake and Output Vital Signs (last 24 hours): Temp Pulse Resp BP Pulse Ox 101.3 F H 97 H 18 132/84 100 04/19/18 06:02 04/19/18 06:03 04/19/18 06:03 04/19/18 06:03 04/19/18 06:03 Intake and Output: 04/19/18 04/19/18 06:59 18:59 Intake Total 1749.1 Output Total 670 Balance 1079.1 - Medications Medications: Current Medications Aspirin (Aspirin Chewable) 81 mg PO DAILY [facility] Heparin Sodium (Porcine) (Heparin) 5,000 units SC Q8 [facility] Last Admin: 04/19/18 05:43 Dose: 5,000 units Piperacillin Sod/Tazobactam (Sod 3.375 gm/ Sodium Chloride) 100 mls @ 200 mls/hr IVPB Q8H [facility]; Protocol Last Admin: 04/19/18 05:42 Dose: 200 mls/hr Levetiracetam 1,500 mg/ (Dextrose) 115 mls @ 420 mls/hr IVPB Q12H [facility] Last Admin: 04/19/18 01:47 Dose: 420 mls/hr Propofol (Diprivan) 1,000 mg in 100 mls @ 2.735 mls/hr IV .Q24H [facility]N; Protocol PRN Reason: TITRATE PER MD ORDER Last Admin: 04/19/18 02:33 Dose: 15 mcg/kg/min, 8.205 mls/hr Sodium Chloride (Sodium Chloride 0.9%) 1,000 mls @ 50 mls/hr IV .Q20H [facility] Last Admin: 04/19/18 07:57 Dose: 50 mls/hr Valproate Sodium 1,000 mg/ (Sodium Chloride) 110 mls @ 100 mls/hr IVPB Q12H [facility] Last Admin: 04/19/18 05:12 Dose: 100 mls/hr Lacosamide 100 mg/ Sodium (Chloride) 60 mls @ 100 mls/hr IVPB Q12H [facility] Last Admin: 04/18/18 20:30 Dose: 100 mls/hr Midazolam HCl 100 mg/ Dextrose 100 mls @ 0.92 mls/hr IV .Q24H [facility]; Protocol Last Admin: 04/18/18 21:15 Dose: Not Given Insulin Aspart (Novolog) 0 unit SC Q6 [facility]; Protocol Last Admin: 04/19/18 06:29 Dose: Not Given Levothyroxine Sodium (Synthroid) 75 mcg PO DAILY@0630 [facility] Last Admin: 04/19/18 05:42 Dose: 75 mcg Lorazepam (Ativan) 1 mg IVP Q4H PRN PRN Reason: Seizure activity Last Admin: 04/19/18 01:58 Dose: 1 mg Pantoprazole Sodium (Protonix Susp) 40 mg GT DAILY [facility] Rosuvastatin Calcium (Crestor) 5 mg PO HS [facility] Last Admin: 04/18/18 22:00 Dose: 5 mg - Labs Labs: 04/19/18 06:21 04/19/18 06:21 PT 13.0 SECONDS (9.7-12.2) H 04/15/18 06:14 INR 1.2 04/15/18 06:14 APTT 28 SECONDS (21-34) 04/15/18 06:14 Assessment and Plan - Assessment and Plan (Free Text) Assessment: Assessments: 1). Anoxic Brain Injury Status: Acute 2). Acute Respiratory Failure Status: Acute 3). Cardiac Arrest Status: Acute 4). Myoclonic Movements Status: Acute 5). Leukocytosis Status: Acute 6). Hx Hypothyroidism Status: Chronic Poor prognosis
[2018-04-19] MEDS: SODIUM CHLORIDE 0.9% IVPB SCH ×2 (08:33→19:57)
[2018-04-19] MEDS: LACOSAMIDE IVPB SCH ×2 (08:33→19:57)
[2018-04-19] MEDS: Pantoprazole 40 mg Susp UD GT SCH (09:40)
--- NOTE | 2018-04-19 09:48 | CP.PCM.PN ---
Subjective - Date & Time of Evaluation Date of Evaluation: 04/19/18 Time of Evaluation: 09:45 - Subjective Subjective: spoke to family with interpretor ID [id number] at 9.30am and explained her the whole condition, transfer, fever,tracheostomy, PEG, anoxic brain damage, sedation. I gave her the opportunity to ask questions. will f/u Objective - Vital Signs/Intake and Output Vital Signs (last 24 hours): Temp Pulse Resp BP Pulse Ox 101.3 F H 101 H 21 135/76 99 04/19/18 06:02 04/19/18 08:00 04/19/18 08:00 04/19/18 08:00 04/19/18 08:00 Intake and Output: 04/19/18 04/19/18 06:59 18:59 Intake Total 1749.1 272.0 Output Total 670 75 Balance 1079.1 197.0 - Medications Medications: Current Medications Aspirin (Aspirin Chewable) 81 mg PO DAILY [facility] Last Admin: 04/19/18 09:40 Dose: 81 mg Heparin Sodium (Porcine) (Heparin) 5,000 units SC Q8 [facility] Last Admin: 04/19/18 05:43 Dose: 5,000 units Piperacillin Sod/Tazobactam (Sod 3.375 gm/ Sodium Chloride) 100 mls @ 200 mls/hr IVPB Q8H [facility]; Protocol Last Admin: 04/19/18 05:42 Dose: 200 mls/hr Levetiracetam 1,500 mg/ (Dextrose) 115 mls @ 420 mls/hr IVPB Q12H [facility] Last Admin: 04/19/18 01:47 Dose: 420 mls/hr Propofol (Diprivan) 1,000 mg in 100 mls @ 2.735 mls/hr IV .Q24H [facility]; Protocol PRN Reason: TITRATE PER MD ORDER Last Admin: 04/19/18 02:33 Dose: 15 mcg/kg/min, 8.205 mls/hr Sodium Chloride (Sodium Chloride 0.9%) 1,000 mls @ 50 mls/hr IV .Q20H [facility] Last Admin: 04/19/18 07:57 Dose: 50 mls/hr Valproate Sodium 1,000 mg/ (Sodium Chloride) 110 mls @ 100 mls/hr IVPB Q12H [facility] Last Admin: 04/19/18 05:12 Dose: 100 mls/hr Lacosamide 100 mg/ Sodium (Chloride) 60 mls @ 100 mls/hr IVPB Q12H [facility] Last Admin: 04/19/18 08:33 Dose: 100 mls/hr Midazolam HCl 100 mg/ Dextrose 100 mls @ 0.92 mls/hr IV .Q24H [facility]; Protocol Last Admin: 04/18/18 21:15 Dose: Not Given Insulin Aspart (Novolog) 0 unit SC Q6 [facility]; Protocol Last Admin: 04/19/18 06:29 Dose: Not Given Levothyroxine Sodium (Synthroid) 75 mcg PO DAILY@0630 [facility] Last Admin: 04/19/18 05:42 Dose: 75 mcg Lorazepam (Ativan) 1 mg IVP Q4H PRN PRN Reason: Seizure activity Last Admin: 04/19/18 01:58 Dose: 1 mg Pantoprazole Sodium (Protonix Susp) 40 mg GT DAILY [facility] Last Admin: 04/19/18 09:40 Dose: 40 mg Rosuvastatin Calcium (Crestor) 5 mg PO HS [facility] Last Admin: 04/18/18 22:00 Dose: 5 mg - Labs Labs: 04/19/18 06:21 04/19/18 06:21 PT 13.0 SECONDS (9.7-12.2) H 04/15/18 06:14 INR 1.2 04/15/18 06:14 APTT 28 SECONDS (21-34) 04/15/18 06:14
[2018-04-19] MEDS ORDERED: Acetaminophen 650mg/20.3ml solution UD PO STA ×2 (13:04→19:44)
--- NOTE | 2018-04-19 15:24 | CP.CCUPN ---
CCU Subjective - Physician Review Events Since Last Encounter (Free Text): 04/19/18 15:22 Patient is a 43-year-old male admitted to the hospital following a cardiac arrest. He developed a post arrest anoxic encephalopathy. Currently he is being sedated with propofol and Versed. But in spite of that there is a significant changes with the pain reflexes. He is having withdrawal reflexes upper extremities and lower extremities. Cough and gag reflex noted. But at times he has some myoclonic jerks. I spoke to the patient's family in detail including the patient's son. On examination: Vital signs as stable. Chest good air entry No wheezing or rales noted Regular hs Nontender abdomen. Extremities no pedal edema. TLC noted. Chest x-ray no infiltrate noted. But patient had an episode of fever last night and this morning. Cultures are done already. Currently he is on antibiotic Rest of the labs nonspecific Patient's family wanted him to be transferred to [facility], yesterday there was a call placed, and I waiting for bed in [facility] Assessment and recommendation: 43-year-old male with a history of obesity, and a possible high cholesterol admitted with a cardiac arrest. Stainable regulated. Now on full support ventilation. Anoxic encephalopathy likely. Sedated. I spoke to the neurologist. I also spoke to the patient's family. Patient might need tracheostomy and feeding tube. Explained to the family about that. We will continue the current treatment. On antibiotic. Follow up the cultures. CCU Objective - Vital Signs / Intake & Output Vital Signs (Last 4 hours): Vital Signs Temp Pulse Resp BP Pulse Ox 04/19/18 14:10 100.6 F H 04/19/18 14:00 109 H 24 125/72 98 04/19/18 13:10 100.1 F H 04/19/18 13:00 117 H 26 H 99 04/19/18 12:59 118 H 27 H 152/93 H 99 04/19/18 12:00 100.1 F H 106 H 21 139/82 98 Intake and Output (Last 8hrs): Intake & Output 04/19/18 04/19/18 04/19/18 06:59 14:59 22:59 Intake Total 1088.1 1341.7 Output Total 355 360 Balance 733.1 981.7 Weight 210 lb Intake: IV 100 150 Intake, IV Amount 488.1 541.7 Left Antecubital 65.7 68.4 Right Arm PICC Distal 22.4 23.3 Port Y-site Right Arm PICC Proximal 400 450 Port Tube Feeding 400 400 Other 100 250 Output: Urine 355 360 Urethral (Campuzano) 355 360 Other: # Bowel Movements 1 1 - Physical Exam Head: Positive for: Atraumatic, Normocephalic Mouth: Positive for: Moist Mucous Membranes Respiratory/Chest: Positive for: Other (on ventilator). Negative for: Respiratory Distress, Accessory Muscle Use, Wheezes, Rhonchi Cardiovascular: Positive for: Normal S1, S2 Abdomen: Negative for: Tenderness, Distention Upper Extremity: Positive for: Normal Inspection. Negative for: Edema Lower Extremity: Positive for: Normal Inspection. Negative for: Edema Skin: Positive for: Warm, Dry, Rashes Psychiatric: Positive for: Other (intubated) - Medications Active Medications: Active Medications Generic Name Dose Route Start Last Admin Trade Name Freq PRN Reason Stop Dose Admin Aspirin 81 mg 04/19/18 10:00 04/19/18 09:40 Aspirin Chewable PO 81 mg DAILY [facility] Administration Heparin Sodium (Porcine) 5,000 units 04/14/18 14:00 04/19/18 13:11 Heparin SC 5,000 units Q8 [facility] Administration Piperacillin Sod/Tazobactam 100 mls @ 200 mls/hr 04/13/18 14:15 04/19/18 13:55 Sod 3.375 gm/ Sodium Chloride IVPB 200 mls/hr Q8H [facility] Administration Protocol Levetiracetam 1,500 mg/ 115 mls @ 420 mls/hr 04/13/18 14:30 04/19/18 13:33 Dextrose IVPB 420 mls/hr Q12H [facility] Administration Propofol 1,000 mg in 100 mls @ 2.735 mls/hr 04/13/18 22:57 04/19/18 14:05 Diprivan IV 20 mcg/kg/min .Q24H PRN 10.941 mls/hr TITRATE PER MD ORDER Administration Protocol 5 MCG/KG/MIN Sodium Chloride 1,000 mls @ 50 mls/hr 04/14/18 10:36 04/19/18 11:17 Sodium Chloride 0.9% IV Not Given .Q20H [facility] Valproate Sodium 1,000 mg/ 110 mls @ 100 mls/hr 04/15/18 18:00 04/19/18 05:12 Sodium Chloride IVPB 100 mls/hr Q12H [facility] Administration Lacosamide 100 mg/ Sodium 60 mls @ 100 mls/hr 04/15/18 20:00 04/19/18 08:33 Chloride IVPB 100 mls/hr Q12H [facility] Administration Midazolam HCl 100 mg/ Sodium 100 mls @ 0.92 mls/hr 04/19/18 13:45 Chloride IV .Q24H [facility] Protocol 0.01 MG/KG/HR Insulin Aspart 0 unit 04/17/18 00:00 04/19/18 11:41 Novolog SC Not Given Q6 [facility] Protocol Levothyroxine Sodium 75 mcg 04/17/18 06:30 04/19/18 05:42 Synthroid PO 75 mcg DAILY@0630 [facility] Administration Lorazepam 1 mg 04/17/18 17:30 04/19/18 10:28 Ativan IVP 1 mg Q4H PRN Administration Seizure activity Pantoprazole Sodium 40 mg 04/19/18 10:00 04/19/18 09:40 Protonix Susp GT 40 mg DAILY [facility] Administration Rosuvastatin Calcium 5 mg 04/18/18 22:00 04/18/18 22:00 Crestor PO 5 mg HS [facility] Administration - Patient Studies Lab Studies: Microbiology Studies 04/13/18 14:40 Blood Culture - Final Blood NO GROWTH AFTER 5 DAYS Gram Stain - Final TEST NOT PERFORMED 04/13/18 14:30 Blood Culture - Final Blood NO GROWTH AFTER 5 DAYS Gram Stain - Final TEST NOT PERFORMED Lab Studies 04/19/18 04/19/18 04/19/18 Range/Units 11:39 06:21 06:21 WBC 8.0 (4.8-10.8) K/uL RBC 4.04 L (4.40-5.90) Mil/uL Hgb 12.7 (12.0-18.0) g/dL Hct 37.5 (35.0-51.0) % MCV 93.1 (80.0-94.0) fL MCH 31.6 H (27.0-31.0) pg MCHC 33.9 (33.0-37.0) g/dL RDW 12.5 (11.5-14.5) % Plt Count 169 (130-400) K/uL MPV 7.7 (7.2-11.7) fL Neut % (Auto) 68.0 (50.0-75.0) % Lymph % (Auto) 14.9 L (20.0-40.0) % [place] % (Auto) 7.9 (0.0-10.0) % Eos % (Auto) 8.8 H (0.0-4.0) % Baso % (Auto) 0.4 (0.0-2.0) % Neut # (Auto) 5.4 (1.8-7.0) K/uL Lymph # (Auto) 1.2 (1.0-4.3) K/uL [place] # (Auto) 0.6 (0.0-0.8) K/uL Eos # (Auto) 0.7 (0.0-0.7) K/uL Baso # (Auto) 0.0 (0.0-0.2) K/uL Puncture Site pCO2 (35-45) mm/Hg pO2 (80-100) mm/Hg HCO3 (21-28) mmol/L ABG pH (7.35-7.45) ABG Total CO2 (22-28) mmol/L ABG O2 Saturation (95-98) % ABG Base Excess (-2.0-3.0) mmol/L Jose Test ABG Potassium (3.6-5.2) mmol/L A-a O2 Difference mm/Hg Respiratory Index Sodium 137 (132-148) mmol/l Chloride 109 H (98-107) mmol/L Glucose (75-110) mg/dl Lactate (0.7-2.1) mmol/L Vent Mode Mechanical Rate FiO2 % Tidal Volume PEEP Potassium 3.7 (3.6-5.2) mmol/L Carbon Dioxide 26 (22-30) mmol/L Anion Gap 6 L (10-20) BUN 25 H (9-20) mg/dL Creatinine 0.9 (0.8-1.5) mg/dL Est GFR ( Amer) > 60 Est GFR (Non-Af Amer) > 60 POC Glucose (mg/dL) 118 H (65-110) mg/dL Random Glucose 107 (75-110) mg/dL Calcium 8.3 L (8.6-10.4) mg/dl Phosphorus 3.4 (2.5-4.5) mg/dL Magnesium 2.1 (1.6-2.3) mg/dL Total Bilirubin 0.7 (0.2-1.3) mg/dL AST 100 H (17-59) U/L ALT 63 (21-72) U/L Alkaline Phosphatase 104 (38-126) U/L Total Protein 5.6 L (6.3-8.3) g/dL Albumin 2.9 L (3.5-5.0) g/dL Globulin 2.7 (2.2-3.9) gm/dL Albumin/Globulin Ratio 1.1 (1.0-2.1) Arterial Blood Potassium (3.6-5.2) mmol/L 04/19/18 Range/Units 05:23 WBC (4.8-10.8) K/uL RBC (4.40-5.90) Mil/uL Hgb (12.0-18.0) g/dL Hct (35.0-51.0) % MCV (80.0-94.0) fL MCH (27.0-31.0) pg MCHC (33.0-37.0) g/dL RDW (11.5-14.5) % Plt Count (130-400) K/uL MPV (7.2-11.7) fL Neut % (Auto) (50.0-75.0) % Lymph % (Auto) (20.0-40.0) % [place] % (Auto) (0.0-10.0) % Eos % (Auto) (0.0-4.0) % Baso % (Auto) (0.0-2.0) % Neut # (Auto) (1.8-7.0) K/uL Lymph # (Auto) (1.0-4.3) K/uL [place] # (Auto) (0.0-0.8) K/uL Eos # (Auto) (0.0-0.7) K/uL Baso # (Auto) (0.0-0.2) K/uL Puncture Site Lr pCO2 30 L (35-45) mm/Hg pO2 109 H (80-100) mm/Hg HCO3 26.8 (21-28) mmol/L ABG pH 7.52 H (7.35-7.45) ABG Total CO2 25.4 (22-28) mmol/L ABG O2 Saturation 99.4 H (95-98) % ABG Base Excess 2.4 (-2.0-3.0) mmol/L Jose Test Pos ABG Potassium 3.7 (3.6-5.2) mmol/L A-a O2 Difference 281.0 mm/Hg Respiratory Index 2.6 Sodium 140.0 (132-148) mmol/l Chloride 111.0 H (98-107) mmol/L Glucose 115 H (75-110) mg/dl Lactate 1.8 (0.7-2.1) mmol/L Vent Mode Prvc Mechanical Rate 18 FiO2 60.0 % Tidal Volume 500 PEEP 5 Potassium (3.6-5.2) mmol/L Carbon Dioxide (22-30) mmol/L Anion Gap (10-20) BUN (9-20) mg/dL Creatinine (0.8-1.5) mg/dL Est GFR ( Amer) Est GFR (Non-Af Amer) POC Glucose (mg/dL) (65-110) mg/dL Random Glucose (75-110) mg/dL Calcium (8.6-10.4) mg/dl Phosphorus (2.5-4.5) mg/dL Magnesium (1.6-2.3) mg/dL Total Bilirubin (0.2-1.3) mg/dL AST (17-59) U/L ALT (21-72) U/L Alkaline Phosphatase (38-126) U/L Total Protein (6.3-8.3) g/dL Albumin (3.5-5.0) g/dL Globulin (2.2-3.9) gm/dL Albumin/Globulin Ratio (1.0-2.1) Arterial Blood Potassium 3.7 (3.6-5.2) mmol/L Laboratory Results - last 24 hr 04/19/18 04/19/18 04/19/18 05:23 06:21 06:21 WBC 8.0 RBC 4.04 L Hgb 12.7 Hct 37.5 MCV 93.1 MCH 31.6 H MCHC 33.9 RDW 12.5 Plt Count 169 MPV 7.7 Neut % (Auto) 68.0 Lymph % (Auto) 14.9 L [place] % (Auto) 7.9 Eos % (Auto) 8.8 H Baso % (Auto) 0.4 Neut # (Auto) 5.4 Lymph # (Auto) 1.2 [place] # (Auto) 0.6 Eos # (Auto) 0.7 Baso # (Auto) 0.0 Puncture Site Lr pCO2 30 L pO2 109 H HCO3 26.8 ABG pH 7.52 H ABG Total CO2 25.4 ABG O2 Saturation 99.4 H ABG Base Excess 2.4 Jose Test Pos ABG Potassium 3.7 A-a O2 Difference 281.0 Respiratory Index 2.6 Sodium 140.0 137 Chloride 111.0 H 109 H Glucose 115 H Lactate 1.8 Vent Mode Prvc Mechanical Rate 18 FiO2 60.0 Tidal Volume 500 PEEP 5 Potassium 3.7 Carbon Dioxide 26 Anion Gap 6 L BUN 25 H Creatinine 0.9 Est GFR ( Amer) > 60 Est GFR (Non-Af Amer) > 60 POC Glucose (mg/dL) Random Glucose 107 Calcium 8.3 L Phosphorus 3.4 Magnesium 2.1 Total Bilirubin 0.7 AST 100 H ALT 63 Alkaline Phosphatase 104 Total Protein 5.6 L Albumin 2.9 L Globulin 2.7 Albumin/Globulin Ratio 1.1 Arterial Blood Potassium 3.7 04/19/18 11:39 WBC RBC Hgb Hct MCV MCH MCHC RDW Plt Count MPV Neut % (Auto) Lymph % (Auto) [place] % (Auto) Eos % (Auto) Baso % (Auto) Neut # (Auto) Lymph # (Auto) [place] # (Auto) Eos # (Auto) Baso # (Auto) Puncture Site pCO2 pO2 HCO3 ABG pH ABG Total CO2 ABG O2 Saturation ABG Base Excess Jose Test ABG Potassium A-a O2 Difference Respiratory Index Sodium Chloride Glucose Lactate Vent Mode Mechanical Rate FiO2 Tidal Volume PEEP Potassium Carbon Dioxide Anion Gap BUN Creatinine Est GFR ( Amer) Est GFR (Non-Af Amer) POC Glucose (mg/dL) 118 H Random Glucose Calcium Phosphorus Magnesium Total Bilirubin AST ALT Alkaline Phosphatase Total Protein Albumin Globulin Albumin/Globulin Ratio Arterial Blood Potassium Fingerstick Blood Sugar Results: 118 Critical Care Progress Note - Nutrition Nutrition: Nutrition Category Date Time Status NPO Diet [DIET] Diets 04/13/18 Dinner Active
[2018-04-19] MEDS: Midazolam 50 mg/10 ml 100 MG in Sodium Chloride 0.9% 80 ML IV SCH (15:50)
--- NOTE | 2018-04-19 16:18 | RAD ---
Date of service: 04/19/2018 HISTORY: intubated COMPARISON: Comparison is made with 04/18/2018 FINDINGS: LUNGS: Appropriate position of the support devices. Again noted is pulmonary vascular congestion. PLEURA: Again noted is left pleural effusion and blunting of the right costophrenic angle. CARDIOVASCULAR: No aortic atherosclerotic calcification present. Normal cardiac size. Right-sided PICC line is seen in place. OSSEOUS STRUCTURES: No significant abnormalities. VISUALIZED UPPER ABDOMEN: NG tube seen extending to the stomach. OTHER FINDINGS: None. IMPRESSION: Pulmonary vascular congestion and bilateral pleural effusions larger on the left. Appropriate position of the support devices.
[2018-04-20] MEDS: (Novolog) Insulin Aspart, Recombinant 100 u/ml 10 ml vial SC SCH ×4 (01:42→18:34)
[2018-04-20] MEDS: Piperacillin/Tazobact 3.375 GM in Sodium Chloride 100 ML IVPB SCH ×3 (06:08→21:45)
[2018-04-20] MEDS: Propofol 10 mg/ml 1,000 MG/100 ML VIAL IV PRN ×3 (06:20→21:00)
[2018-04-20 06:29] LABS: ABG ALLEN TEST POS; ARTERIAL BLOOD GAS HCO3 25.1 mmol/L (21-28); ARTERIAL BLOOD GAS HEMOGLOBIN 12.3 g/dL (11.7-17.4); ARTERIAL BLOOD GAS O2 SAT 98.7 % (95-98); ARTERIAL BLOOD GAS PCO2 30 mm/Hg (35-45); ARTERIAL BLOOD GAS PH 7.49 (7.35-7.45); ARTERIAL BLOOD GAS PO2 98 mm/Hg (80-100); ARTERIAL BLOOD GAS TCO2 23.8 mmol/L (22-28)
[2018-04-20] MEDS: Valproate 1,000 MG in Sodium Chloride 0.9% 100 ML IVPB SCH ×2 (06:35→17:21)
[2018-04-20 06:37] LABS: BASO % 0.3 % (0.0-2.0); EOS # 0.6 K/uL (0.0-0.7); EOS % 6.3 % (0.0-4.0); HEMOGLOBIN 13.3 g/dL (12.0-18.0); LYMPH # 1.3 K/uL (1.0-4.3); LYMPH % 14.4 % (20.0-40.0); MEAN CELL VOLUME 93.4 fL (80.0-94.0); MEAN CORPUSCULAR HEMOGLOBIN 31.5 pg (27.0-31.0); MEAN CORPUSCULAR HGB CONC 33.7 g/dL (33.0-37.0); MEAN PLATELET VOLUME 7.9 fL (7.2-11.7); MONO # 0.7 K/uL (0.0-0.8); MONO % 7.5 % (0.0-10.0); NEUT # 6.4 K/uL (1.8-7.0); NEUT % 71.5 % (50.0-75.0); RBC 4.21 Mil/uL (4.40-5.90); RED CELL DISTRIBUTION WIDTH 12.9 % (11.5-14.5)
[2018-04-20] MEDS: Levothyroxine 75 MCG TAB PO SCH (06:44)
[2018-04-20 06:52] LABS: ALB/GLOB RATIO 1.1 (1.0-2.1); ALBUMIN 3.2 g/dL (3.5-5.0); ALT/SGPT 50 U/L (21-72); AST/SGOT 84 U/L (17-59); BLOOD UREA NITROGEN 22 mg/dL (9-20); CALCIUM 8.5 mg/dl (8.6-10.4); GFR NON-AFRICAN AMERICAN > 60
[2018-04-20] MEDS: Sodium Chloride 0.9% 1,000 ML IV SCH ×2 (07:00→14:49)
[2018-04-20] MEDS: LACOSAMIDE IVPB SCH ×2 (07:59→21:00)
[2018-04-20] MEDS: SODIUM CHLORIDE 0.9% IVPB SCH ×2 (07:59→21:00)
--- NOTE | 2018-04-20 08:18 | CP.PCM.PN ---
Subjective - Date & Time of Evaluation Date of Evaluation: 04/20/18 Time of Evaluation: 08:00 - Subjective Subjective: Hospitalist Progress Note Patient was seen and examined at 8:00 AM 04/20/18 with NO family at bedside at time of exam. 43 year old male who was admitted after cardiopulmonary arrest. Anoxic brain injury is suspected. He is currently intubated and on Nimbex, Propofol, Vimpat and Midazolam. Hypothermic protocol was completed 04/15/18. Video EEG was completed and official read is pending. He is on Zosyn and Vancomycin for leukocytosis with Blood Culture 04/13/18 currently negative to date and Urine Cultures 04/13/18 and 04/14/18 showing NO growth. In light of the high fevers on 04/19/18, repeat Urine and Blood Cultures ordered and results are pending. Neurology Dr. Snider is on board and has informed Son Jer and of poor prognosis Son Jer and Patient's met with Palliative Care Nurse Micaela on 04/15/18 and family decided to make patient DNR. Spoke with Nurse Parsons morning 04/19/18 and was informed that patient's DNR was rescinded and patient is now FULL CODE as family felt patient's hands move on 04/18/18. ICU Physician Dr. Sheriff has also spoken with family extensively and is currently in the process of arranging transfer to [facility] as per the family's request I spoke with Son Jer on night of 04/19/18 and he stated that the family are considering placement of Tracheostomy and G Tube. I again expressed poor prognosis of patient considering anoxic brain injury. Information concerning patient status should be discussed with Anders Randle and patient only. Spoke with Nurse Parsons 04/20/18 currently caring for patient: Time of cleaning patient 04/19/18 after 2 bowel movements that were watery, indicated skin to be intact without any ulcerations/breakdown Producing adequate amount of urine: over 1 L from 7 AM to 7 PM Shift Fever of 100.7 F currently: axillary, groin, and posterior ice packs placed as patient has responded to this in the past He is on Jevity 50 ml/hr via OGT Chest X Ray 04/19/18: Pulmonary vascular congestion and bilateral pleural effusions larger on the left, appropriate position of the support devices Follow up Chest X Ray from this morning 04/20/18 The following studies have been performed: 1). Video EEG (04/18/18): This is an abnormal video EEG. Shows GPEDS, and BIPLEDs, indicative of severe anoxic injury. There are no seizures at this time. 2). CT Head (04/18/18): Probable diffuse hypoxic insult with diffuse cerebral edema and loss of pablo/white matter differentiation. NO evidence of herniation. NO focal vascular territorial infarct. Chronis pansinusitis. Mild nonspecific bilateral mastoid effusion. 3). EEG (04/15/18): This is an abnormal EEG record that demonstrate the presence of severe non specific diffuse disturbance of cortical activity, this is keeping with a diffuse pablo matter dysfunction, these findings are not specific. There were rhythmic muscle artifact seen, most likely mycolonus, this are usually seen in hypoxic brain insults, please correlate clinically. No seizures. Patient is not in status epilepticus 4). CT Head (04/15/18): Extensive diffuse homogeneous appearance of the brain parenchyma with loss of the cortico-medullary distinction and on diminution of cerebral sulci. Findings consistent with sequela diffuse hypoxia. 5). CT Head (04/14/18): Little interval change in mild diffuse effacement of cortical sulci and indistinct pablo-white matter differentiation related to hypoxic-anoxic insult with the stated clinical history. 6). CT Head (04/13/18): No acute intracranial hemorrhage. There is mild homogeneous appearance of the brain parenchyma with subtle indistinct appearance of the cortico-medullary junction. Findings could represent mild diffuse cerebral edema related to hypoxia however clinical correlation suggested. He is on the following medications: Cisatracurium 100 mg Q6H PRN Lacosamide 100 mg IV Q12H Levetiracetam 1,5000 mg IV Q12H Midazolam 100 mg IV Q24H Propofol Drip Valproate 1,000 mg IV Q12H Zosyn 3.375 gm IV Q8H Vancomycin 1 gm IV Q24H Levothyroxine 75 mcg via OGT 1x/day Protonix 40 mg IV Q24H Heparin 5,000 Units SC Q8H Aspart ISS Q6H Jevity @ 50 ml/hr NS @ 50 ml/hr ROS is not possible due to patient unresponsiveness General: Intubated on vent with NGT, Jerking movements not noted at the time of my exam 04/18/18 HEENT: Pupils are now dilated and sluggishly reactive to light, NO lympha denopathy, NO thyromegaly Cardio: NS1 and NS2, NO M/R/G with tachycardia Resp: Breath sounds are clear today 04/19/18 GI: Central Obesity, BS are decreased in all 4 quadrants, Soft Ext: Pulses are strong and equal upper and lower extremities, NO edema, Capillary refill is 2 seconds Neuro: exam is not possible Assessments: 1). Anoxic Brain Injury Status: Acute 2). Acute Respiratory Failure Status: Acute 3). Cardiac Arrest Status: Acute 4). Myoclonic Movements Status: Acute 5). Leukocytosis Status: Acute 6). Hx Hypothyroidism Status: Chronic Yosvany Riddle D.O. [phone] Objective - Vital Signs/Intake and Output Vital Signs (last 24 hours): Temp Pulse Resp BP Pulse Ox 99.5 F 92 H 18 121/77 97 04/20/18 06:00 04/20/18 07:00 04/20/18 07:00 04/20/18 07:00 04/20/18 07:00 Intake and Output: 04/20/18 04/20/18 06:59 18:59 Intake Total Output Total Balance - Medications Medications: Current Medications Aspirin (Aspirin Chewable) 81 mg PO DAILY [facility] Last Admin: 04/19/18 09:40 Dose: 81 mg Heparin Sodium (Porcine) (Heparin) 5,000 units SC Q8 ROBERT Last Admin: 04/20/18 07:11 Dose: 5,000 units Piperacillin Sod/Tazobactam (Sod 3.375 gm/ Sodium Chloride) 100 mls @ 200 mls/hr IVPB Q8H ROBERT; Protocol Last Admin: 04/20/18 06:08 Dose: 200 mls/hr Levetiracetam 1,500 mg/ (Dextrose) 115 mls @ 420 mls/hr IVPB Q12H ROBERT Last Admin: 04/20/18 03:00 Dose: 420 mls/hr Propofol (Diprivan) 1,000 mg in 100 mls @ 2.735 mls/hr IV .Q24H PRN; Protocol PRN Reason: TITRATE PER MD ORDER Last Admin: 04/20/18 06:20 Dose: 20 mcg/kg/min, 10.941 mls/hr Sodium Chloride (Sodium Chloride 0.9%) 1,000 mls @ 50 mls/hr IV .Q20H ROBERT Last Admin: 04/20/18 07:00 Dose: Not Given Valproate Sodium 1,000 mg/ (Sodium Chloride) 110 mls @ 100 mls/hr IVPB Q12H ROBERT Last Admin: 04/20/18 06:35 Dose: 100 mls/hr Lacosamide 100 mg/ Sodium (Chloride) 60 mls @ 100 mls/hr IVPB Q12H ROBERT Last Admin: 04/20/18 07:59 Dose: 100 mls/hr Midazolam HCl 100 mg/ Sodium (Chloride) 100 mls @ 0.92 mls/hr IV .Q24H [facility]; Protocol Last Admin: 04/19/18 15:50 Dose: 0.04 mg/kg/hr, 3.67 mls/hr Insulin Aspart (Novolog) 0 unit SC Q6 [facility]; Protocol Last Admin: 04/20/18 06:27 Dose: Not Given Levothyroxine Sodium (Synthroid) 75 mcg PO DAILY@0630 [facility] Last Admin: 04/20/18 06:44 Dose: 75 mcg Lorazepam (Ativan) 1 mg IVP Q4H PRN PRN Reason: Seizure activity Last Admin: 04/19/18 10:28 Dose: 1 mg Pantoprazole Sodium (Protonix Susp) 40 mg GT DAILY [facility] Last Admin: 04/19/18 09:40 Dose: 40 mg Rosuvastatin Calcium (Crestor) 5 mg PO HS [facility] Last Admin: 04/19/18 21:43 Dose: 5 mg - Labs Labs: 04/20/18 06:23 04/20/18 06:24 PT 13.0 SECONDS (9.7-12.2) H 04/15/18 06:14 INR 1.2 04/15/18 06:14 APTT 28 SECONDS (21-34) 04/15/18 06:14
[2018-04-20 08:45] LABS: URINE BACTERIA RARE (<OCC); URINE BILIRUBIN NEGATIVE (NEGATIVE); URINE BLOOD 2+ (NEGATIVE); URINE CLARITY Hazy (Clear); URINE COLOR Amber (YELLOW); URINE GLUCOSE (UA) NORMAL (Normal); URINE LEUKOCYTE ESTERASE 2+ Leu/uL (Negative); URINE PROTEIN 1+ mg/dL (NEGATIVE)
[2018-04-20] MEDS: Vancomycin 1 gm/NS 200 ml 1 GM/200 ML BAG IVPB SCH (09:07)
[2018-04-20] MEDS: Pantoprazole 40 mg Susp UD GT SCH (09:08)
--- NOTE | 2018-04-20 10:26 | CP.CCUPN ---
CCU Subjective - Physician Review Events Since Last Encounter (Free Text): 04/20/18 10:26 Patient now still on sedation. Propofol and midazolam drip is running When he reduced the propofol patient started having increasing shaking, myoclonic jerks noted. Tolerating the feeding at this time. 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 Patient is same as yesterday. No new changes noted. Low-grade fever yesterday present. Patient is tolerating the feeding at this time On examination: Vital signs are stable. Mild tachycardia noted. Chest good air entry There was no wheezing or rales Heart sounds are regular Abdomen nontender. Pedal edema negative. WELDER/FABRICATOR comatose. Pain. Today patient is moving extremities. Assessment and recommendation: Patient is a 43-year-old male with a history of obesity, hypercholesterolemia, admitted with a cardiac arrest. Currently on full support ventilation. 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 Patient is currently sedated. I explained to the family regarding the current condition. I also explained about the tracheostomy and feeding tube. Family understand. They will make that decision tomorrow. Meanwhile will continue the antibiotic, keep the patient afebrile. Septic workup pending. Unable to wean the patient because of the unconsciousness. CCU Objective - Vital Signs / Intake & Output Vital Signs (Last 4 hours): Vital Signs Pulse Resp BP Pulse Ox 04/20/18 09:00 89 18 104/59 L 97 04/20/18 08:00 101 H 21 129/78 95 04/20/18 07:00 92 H 18 121/77 97 Intake and Output (Last 8hrs): Intake & Output 04/19/18 04/20/18 04/20/18 21:59 06:59 14:59 Intake Total 629.1 Output Total 175 Balance 454.1 Weight Intake: IV 52 Intake, IV Amount 277.1 Left Antecubital 33 Right Arm PICC Distal 11.1 Port Y-site Right Arm PICC Proximal 233 Port Tube Feeding 150 Other 150 Output: Urine 175 Urethral (Campuzano) 175 Other: # Bowel Movements - Physical Exam Head: Positive for: Atraumatic, Normocephalic Mouth: Positive for: Moist Mucous Membranes Respiratory/Chest: Positive for: Other (on ventilator). Negative for: Respiratory Distress, Accessory Muscle Use, Wheezes, Rhonchi Cardiovascular: Positive for: Normal S1, S2 Abdomen: Negative for: Tenderness, Distention Upper Extremity: Positive for: Normal Inspection. Negative for: Edema Lower Extremity: Positive for: Normal Inspection. Negative for: Edema Skin: Positive for: Warm, Dry, Rashes Psychiatric: Positive for: Other (intubated) - Medications Active Medications: Active Medications Generic Name Dose Route Start Last Admin Trade Name Freq PRN Reason Stop Dose Admin Aspirin 81 mg 04/19/18 10:00 04/20/18 09:07 Aspirin Chewable PO 81 mg DAILY ROBERT Administration Heparin Sodium (Porcine) 5,000 units 04/14/18 14:00 04/20/18 07:11 Heparin SC 5,000 units Q8 ROBERT Administration Piperacillin Sod/Tazobactam 100 mls @ 200 mls/hr 04/13/18 14:15 04/20/18 06:08 Sod 3.375 gm/ Sodium Chloride IVPB 200 mls/hr Q8H ROBERT Administration Protocol Levetiracetam 1,500 mg/ 115 mls @ 420 mls/hr 04/13/18 14:30 04/20/18 03:00 Dextrose IVPB 420 mls/hr Q12H ROBERT Administration Propofol 1,000 mg in 100 mls @ 2.735 mls/hr 04/13/18 22:57 04/20/18 09:36 Diprivan IV 25 mcg/kg/min .Q24H PRN 13.676 mls/hr TITRATE PER MD ORDER Titration Protocol 5 MCG/KG/MIN Sodium Chloride 1,000 mls @ 50 mls/hr 04/14/18 10:36 04/20/18 07:00 Sodium Chloride 0.9% IV Not Given .Q20H ROBERT Valproate Sodium 1,000 mg/ 110 mls @ 100 mls/hr 04/15/18 18:00 04/20/18 06:35 Sodium Chloride IVPB 100 mls/hr Q12H ROBERT Administration Lacosamide 100 mg/ Sodium 60 mls @ 100 mls/hr 04/15/18 20:00 04/20/18 07:59 Chloride IVPB 100 mls/hr Q12H ROBERT Administration Midazolam HCl 100 mg/ Sodium 100 mls @ 0.92 mls/hr 04/19/18 13:45 04/19/18 15:50 Chloride IV 0.04 mg/kg/hr .Q24H ROBERT 3.67 mls/hr Administration Protocol 0.01 MG/KG/HR Vancomycin/Sodium Chloride 1 gm in 200 mls @ 133 mls/hr 04/20/18 09:00 04/20/18 09:07 Vancomycin 1 Gm/Ns 200 Ml IVPB 04/25/18 09:01 133 mls/hr Q24H ROBERT Administration Protocol Insulin Aspart 0 unit 04/17/18 00:00 04/20/18 06:27 Novolog SC Not Given Q6 ROBERT Protocol Levothyroxine Sodium 75 mcg 04/17/18 06:30 04/20/18 06:44 Synthroid PO 75 mcg DAILY@0630 ROBERT Administration Lorazepam 1 mg 04/17/18 17:30 04/20/18 09:31 Ativan IVP 1 mg Q4H PRN Administration Seizure activity Pantoprazole Sodium 40 mg 04/19/18 10:00 04/20/18 09:08 Protonix Susp GT 40 mg DAILY ROBERT Administration Rosuvastatin Calcium 5 mg 04/18/18 22:00 04/19/18 21:43 Crestor PO 5 mg HS ROBERT Administration - Patient Studies Lab Studies: Microbiology Studies 04/19/18 08:30 Blood Culture - Preliminary Blood-Venous NO GROWTH AFTER 24 HOURS 04/19/18 08:00 Blood Culture - Preliminary Blood-Venous NO GROWTH AFTER 24 HOURS 04/19/18 08:30 Urine Culture - Final Urine,Catheterized No Growth (<1,000 CFU/ML) Lab Studies 04/20/18 04/20/18 04/20/18 Range/Units 08:27 06:25 06:24 WBC (4.8-10.8) K/uL RBC (4.40-5.90) Mil/uL Hgb (12.0-18.0) g/dL Hct (35.0-51.0) % MCV (80.0-94.0) fL MCH (27.0-31.0) pg MCHC (33.0-37.0) g/dL RDW (11.5-14.5) % Plt Count (130-400) K/uL MPV (7.2-11.7) fL Neut % (Auto) (50.0-75.0) % Lymph % (Auto) (20.0-40.0) % [place] % (Auto) (0.0-10.0) % Eos % (Auto) (0.0-4.0) % Baso % (Auto) (0.0-2.0) % Neut # (Auto) (1.8-7.0) K/uL Lymph # (Auto) (1.0-4.3) K/uL [place] # (Auto) (0.0-0.8) K/uL Eos # (Auto) (0.0-0.7) K/uL Baso # (Auto) (0.0-0.2) K/uL Puncture Site pCO2 (35-45) mm/Hg pO2 (80-100) mm/Hg HCO3 (21-28) mmol/L ABG pH (7.35-7.45) ABG Total CO2 (22-28) mmol/L ABG O2 Saturation (95-98) % ABG Base Excess (-2.0-3.0) mmol/L ABG Hemoglobin (11.7-17.4) g/dL ABG Carboxyhemoglobin (0.5-1.5) % POC ABG HHb (Measured) (0.0-5.0) % ABG Methemoglobin (0.0-3.0) % Jose Test A-a O2 Difference mm/Hg Respiratory Index Hgb O2 Saturation (95.0-98.0) % Vent Mode Mechanical Rate FiO2 % Tidal Volume PEEP Sodium 137 (132-148) mmol/L Potassium 3.9 (3.6-5.2) mmol/L Chloride 108 H (98-107) mmol/L Carbon Dioxide 26 (22-30) mmol/L Anion Gap 7 L (10-20) BUN 22 H (9-20) mg/dL Creatinine 0.9 (0.8-1.5) mg/dL Est GFR ( Amer) > 60 Est GFR (Non-Af Amer) > 60 POC Glucose (mg/dL) 128 H (65-110) mg/dL Random Glucose 135 H D (75-110) mg/dL Calcium 8.5 L (8.6-10.4) mg/dl Phosphorus 2.9 (2.5-4.5) mg/dL Magnesium 2.2 (1.6-2.3) mg/dL Total Bilirubin 0.6 (0.2-1.3) mg/dL AST 84 H (17-59) U/L ALT 50 (21-72) U/L Alkaline Phosphatase 110 (38-126) U/L Total Protein 5.9 L (6.3-8.3) g/dL Albumin 3.2 L (3.5-5.0) g/dL Globulin 2.8 (2.2-3.9) gm/dL Albumin/Globulin Ratio 1.1 (1.0-2.1) Urine Color Christianne (YELLOW) Urine Clarity Hazy (Clear) Urine pH 5.0 (5.0-8.0) Ur Specific Turner 1.030 (1.003-1.030) Urine Protein 1+ H (NEGATIVE) mg/dL Urine Glucose (UA) Normal (Normal) mg/dL Urine Ketones Negative (NEGATIVE) mg/dL Urine Blood 2+ H (NEGATIVE) Urine Nitrate Negative (NEGATIVE) Urine Bilirubin Negative (NEGATIVE) Urine Urobilinogen 4.0 (0.2-1.0) mg/dL Ur Leukocyte Esterase 2+ H (Negative) Ezra/uL Urine WBC (Auto) 25 H (0-5) /hpf Urine RBC (Auto) 160 H (0-3) /hpf Urine Bacteria Rare (<OCC) 04/20/18 04/20/18 04/19/18 Range/Units 06:23 06:00 23:29 WBC 9.0 (4.8-10.8) K/uL RBC 4.21 L (4.40-5.90) Mil/uL Hgb 13.3 (12.0-18.0) g/dL Hct 39.4 (35.0-51.0) % MCV 93.4 (80.0-94.0) fL MCH 31.5 H (27.0-31.0) pg MCHC 33.7 (33.0-37.0) g/dL RDW 12.9 (11.5-14.5) % Plt Count 168 (130-400) K/uL MPV 7.9 (7.2-11.7) fL Neut % (Auto) 71.5 (50.0-75.0) % Lymph % (Auto) 14.4 L (20.0-40.0) % [place] % (Auto) 7.5 (0.0-10.0) % Eos % (Auto) 6.3 H (0.0-4.0) % Baso % (Auto) 0.3 (0.0-2.0) % Neut # (Auto) 6.4 (1.8-7.0) K/uL Lymph # (Auto) 1.3 (1.0-4.3) K/uL [place] # (Auto) 0.7 (0.0-0.8) K/uL Eos # (Auto) 0.6 (0.0-0.7) K/uL Baso # (Auto) 0.0 (0.0-0.2) K/uL Puncture Site Rradial pCO2 30 L (35-45) mm/Hg pO2 98 (80-100) mm/Hg HCO3 25.1 (21-28) mmol/L ABG pH 7.49 H (7.35-7.45) ABG Total CO2 23.8 (22-28) mmol/L ABG O2 Saturation 98.7 H (95-98) % ABG Base Excess 0.3 (-2.0-3.0) mmol/L ABG Hemoglobin 12.3 (11.7-17.4) g/dL ABG Carboxyhemoglobin 1.3 (0.5-1.5) % POC ABG HHb (Measured) 1.3 (0.0-5.0) % ABG Methemoglobin 1.4 (0.0-3.0) % Jose Test Pos A-a O2 Difference 292.0 mm/Hg Respiratory Index 3.0 Hgb O2 Saturation 96.0 (95.0-98.0) % Vent Mode Prvc Mechanical Rate 18 FiO2 60.0 % Tidal Volume 500 PEEP 5 Sodium (132-148) mmol/L Potassium (3.6-5.2) mmol/L Chloride (98-107) mmol/L Carbon Dioxide (22-30) mmol/L Anion Gap (10-20) BUN (9-20) mg/dL Creatinine (0.8-1.5) mg/dL Est GFR ( Amer) Est GFR (Non-Af Amer) POC Glucose (mg/dL) 159 H (65-110) mg/dL Random Glucose (75-110) mg/dL Calcium (8.6-10.4) mg/dl Phosphorus (2.5-4.5) mg/dL Magnesium (1.6-2.3) mg/dL Total Bilirubin (0.2-1.3) mg/dL AST (17-59) U/L ALT (21-72) U/L Alkaline Phosphatase (38-126) U/L Total Protein (6.3-8.3) g/dL Albumin (3.5-5.0) g/dL Globulin (2.2-3.9) gm/dL Albumin/Globulin Ratio (1.0-2.1) Urine Color (YELLOW) Urine Clarity (Clear) Urine pH (5.0-8.0) Ur Specific Turner (1.003-1.030) Urine Protein (NEGATIVE) mg/dL Urine Glucose (UA) (Normal) mg/dL Urine Ketones (NEGATIVE) mg/dL Urine Blood (NEGATIVE) Urine Nitrate (NEGATIVE) Urine Bilirubin (NEGATIVE) Urine Urobilinogen (0.2-1.0) mg/dL Ur Leukocyte Esterase (Negative) Ezra/uL Urine WBC (Auto) (0-5) /hpf Urine RBC (Auto) (0-3) /hpf Urine Bacteria (<OCC) 04/19/18 04/19/18 Range/Units 17:42 11:39 WBC (4.8-10.8) K/uL RBC (4.40-5.90) Mil/uL Hgb (12.0-18.0) g/dL Hct (35.0-51.0) % MCV (80.0-94.0) fL MCH (27.0-31.0) pg MCHC (33.0-37.0) g/dL RDW (11.5-14.5) % Plt Count (130-400) K/uL MPV (7.2-11.7) fL Neut % (Auto) (50.0-75.0) % Lymph % (Auto) (20.0-40.0) % [place] % (Auto) (0.0-10.0) % Eos % (Auto) (0.0-4.0) % Baso % (Auto) (0.0-2.0) % Neut # (Auto) (1.8-7.0) K/uL Lymph # (Auto) (1.0-4.3) K/uL [place] # (Auto) (0.0-0.8) K/uL Eos # (Auto) (0.0-0.7) K/uL Baso # (Auto) (0.0-0.2) K/uL Puncture Site pCO2 (35-45) mm/Hg pO2 (80-100) mm/Hg HCO3 (21-28) mmol/L ABG pH (7.35-7.45) ABG Total CO2 (22-28) mmol/L ABG O2 Saturation (95-98) % ABG Base Excess (-2.0-3.0) mmol/L ABG Hemoglobin (11.7-17.4) g/dL ABG Carboxyhemoglobin (0.5-1.5) % POC ABG HHb (Measured) (0.0-5.0) % ABG Methemoglobin (0.0-3.0) % Jose Test A-a O2 Difference mm/Hg Respiratory Index Hgb O2 Saturation (95.0-98.0) % Vent Mode Mechanical Rate FiO2 % Tidal Volume PEEP Sodium (132-148) mmol/L Potassium (3.6-5.2) mmol/L Chloride (98-107) mmol/L Carbon Dioxide (22-30) mmol/L Anion Gap (10-20) BUN (9-20) mg/dL Creatinine (0.8-1.5) mg/dL Est GFR ( Amer) Est GFR (Non-Af Amer) POC Glucose (mg/dL) 106 118 H (65-110) mg/dL Random Glucose (75-110) mg/dL Calcium (8.6-10.4) mg/dl Phosphorus (2.5-4.5) mg/dL Magnesium (1.6-2.3) mg/dL Total Bilirubin (0.2-1.3) mg/dL AST (17-59) U/L ALT (21-72) U/L Alkaline Phosphatase (38-126) U/L Total Protein (6.3-8.3) g/dL Albumin (3.5-5.0) g/dL Globulin (2.2-3.9) gm/dL Albumin/Globulin Ratio (1.0-2.1) Urine Color (YELLOW) Urine Clarity (Clear) Urine pH (5.0-8.0) Ur Specific Turner (1.003-1.030) Urine Protein (NEGATIVE) mg/dL Urine Glucose (UA) (Normal) mg/dL Urine Ketones (NEGATIVE) mg/dL Urine Blood (NEGATIVE) Urine Nitrate (NEGATIVE) Urine Bilirubin (NEGATIVE) Urine Urobilinogen (0.2-1.0) mg/dL Ur Leukocyte Esterase (Negative) Ezra/uL Urine WBC (Auto) (0-5) /hpf Urine RBC (Auto) (0-3) /hpf Urine Bacteria (<OCC) Laboratory Results - last 24 hr 04/19/18 04/19/18 04/19/18 11:39 17:42 23:29 WBC RBC Hgb Hct MCV MCH MCHC RDW Plt Count MPV Neut % (Auto) Lymph % (Auto) [place] % (Auto) Eos % (Auto) Baso % (Auto) Neut # (Auto) Lymph # (Auto) [place] # (Auto) Eos # (Auto) Baso # (Auto) Puncture Site pCO2 pO2 HCO3 ABG pH ABG Total CO2 ABG O2 Saturation ABG Base Excess ABG Hemoglobin ABG Carboxyhemoglobin POC ABG HHb (Measured) ABG Methemoglobin Jose Test A-a O2 Difference Respiratory Index Hgb O2 Saturation Vent Mode Mechanical Rate FiO2 Tidal Volume PEEP Sodium Potassium Chloride Carbon Dioxide Anion Gap BUN Creatinine Est GFR ( Amer) Est GFR (Non-Af Amer) POC Glucose (mg/dL) 118 H 106 159 H Random Glucose Calcium Phosphorus Magnesium Total Bilirubin AST ALT Alkaline Phosphatase Total Protein Albumin Globulin Albumin/Globulin Ratio Urine Color Urine Clarity Urine pH Ur Specific Turner Urine Protein Urine Glucose (UA) Urine Ketones Urine Blood Urine Nitrate Urine Bilirubin Urine Urobilinogen Ur Leukocyte Esterase Urine WBC (Auto) Urine RBC (Auto) Urine Bacteria 04/20/18 04/20/18 04/20/18 06:00 06:23 06:24 WBC 9.0 RBC 4.21 L Hgb 13.3 Hct 39.4 MCV 93.4 MCH 31.5 H MCHC 33.7 RDW 12.9 Plt Count 168 MPV 7.9 Neut % (Auto) 71.5 Lymph % (Auto) 14.[address] % (Auto) 7.5 Eos % (Auto) 6.3 H Baso % (Auto) 0.3 Neut # (Auto) 6.4 Lymph # (Auto) 1.3 [place] # (Auto) 0.7 Eos # (Auto) 0.6 Baso # (Auto) 0.0 Puncture Site Rradial pCO2 30 L pO2 98 HCO3 25.1 ABG pH 7.49 H ABG Total CO2 23.8 ABG O2 Saturation 98.7 H ABG Base Excess 0.3 ABG Hemoglobin 12.3 ABG Carboxyhemoglobin 1.3 POC ABG HHb (Measured) 1.3 ABG Methemoglobin 1.4 Jose Test Pos A-a O2 Difference 292.0 Respiratory Index 3.0 Hgb O2 Saturation 96.0 Vent Mode Prvc Mechanical Rate 18 FiO2 60.0 Tidal Volume 500 PEEP 5 Sodium 137 Potassium 3.9 Chloride 108 H Carbon Dioxide 26 Anion Gap 7 L BUN 22 H Creatinine 0.9 Est GFR ( Amer) > 60 Est GFR (Non-Af Amer) > 60 POC Glucose (mg/dL) Random Glucose 135 H D Calcium 8.5 L Phosphorus 2.9 Magnesium 2.2 Total Bilirubin 0.6 AST 84 H ALT 50 Alkaline Phosphatase 110 Total Protein 5.9 L Albumin 3.2 L Globulin 2.8 Albumin/Globulin Ratio 1.1 Urine Color Urine Clarity Urine pH Ur Specific Turner Urine Protein Urine Glucose (UA) Urine Ketones Urine Blood Urine Nitrate Urine Bilirubin Urine Urobilinogen Ur Leukocyte Esterase Urine WBC (Auto) Urine RBC (Auto) Urine Bacteria 04/20/18 04/20/18 06:25 08:27 WBC RBC Hgb Hct MCV MCH MCHC RDW Plt Count MPV Neut % (Auto) Lymph % (Auto) [place] % (Auto) Eos % (Auto) Baso % (Auto) Neut # (Auto) Lymph # (Auto) [place] # (Auto) Eos # (Auto) Baso # (Auto) Puncture Site pCO2 pO2 HCO3 ABG pH ABG Total CO2 ABG O2 Saturation ABG Base Excess ABG Hemoglobin ABG Carboxyhemoglobin POC ABG HHb (Measured) ABG Methemoglobin Jose Test A-a O2 Difference Respiratory Index Hgb O2 Saturation Vent Mode Mechanical Rate FiO2 Tidal Volume PEEP Sodium Potassium Chloride Carbon Dioxide Anion Gap BUN Creatinine Est GFR ( Amer) Est GFR (Non-Af Amer) POC Glucose (mg/dL) 128 H Random Glucose Calcium Phosphorus Magnesium Total Bilirubin AST ALT Alkaline Phosphatase Total Protein Albumin Globulin Albumin/Globulin Ratio Urine Color Christianne Urine Clarity Hazy Urine pH 5.0 Ur Specific Turner 1.030 Urine Protein 1+ H Urine Glucose (UA) Normal Urine Ketones Negative Urine Blood 2+ H Urine Nitrate Negative Urine Bilirubin Negative Urine Urobilinogen 4.0 Ur Leukocyte Esterase 2+ H Urine WBC (Auto) 25 H Urine RBC (Auto) 160 H Urine Bacteria Rare Radiology Impressions: Radiology Impressions Chest X-Ray 04/19/18 06:00 IMPRESSION: Pulmonary vascular congestion and bilateral pleural effusions larger on the left. Appropriate position of the support devices. Fingerstick Blood Sugar Results: 128 Critical Care Progress Note - Nutrition Nutrition: Nutrition Category Date Time Status NPO Diet [DIET] Diets 04/13/18 Dinner Active
--- NOTE | 2018-04-20 11:11 | CP.PCM.PN ---
Subjective - Date & Time of Evaluation Date of Evaluation: 04/19/18 Time of Evaluation: 14:10 - Subjective Subjective: Patient is a 43-year-old male admitted to the hospital following a cardiac arrest. He developed a post arrest anoxic encephalopathy. Currently he is being sedated with propofol and Versed. But in spite of that there is a significant changes with the pain reflexes. He is having withdrawal reflexes upper extremities and lower extremities. Cough and gag reflex noted. But at times he has some myoclonic jerks. I spoke to the patient's family in detail including the patient's son. On examination: Vital signs as stable. Chest good air entry No wheezing or rales noted Regular hs Nontender abdomen. Extremities no pedal edema. TLC noted. Chest x-ray no infiltrate noted. But patient had an episode of fever last night and this morning. Cultures are done already. Currently he is on antibiotic Rest of the labs nonspecific Patient's family wanted him to be transferred to [facility], yesterday there was a call placed, and I waiting for bed in [facility] Assessment and recommendation: 43-year-old male with a history of obesity, and a possible high cholesterol admitted with a cardiac arrest. Stainable regulated. Now on full support ventilation. Anoxic encephalopathy likely. Sedated. I spoke to the neurologist. I also spoke to the patient's family. Patient might need tracheostomy and feeding tube. Explained to the family about that. We will continue the current treatment. On antibiotic. Follow up the cultures. Objective - Vital Signs/Intake and Output Vital Signs (last 24 hours): Temp Pulse Resp BP Pulse Ox 99.2 F 96 H 16 118/70 94 L 04/20/18 10:30 04/20/18 10:00 04/20/18 10:00 04/20/18 10:00 04/20/18 10:00 Intake and Output: 04/20/18 04/20/18 06:59 18:59 Intake Total 776.4 Output Total 235 Balance 541.4 - Medications Medications: Current Medications Aspirin (Aspirin Chewable) 81 mg PO DAILY [facility] Last Admin: 04/20/18 09:07 Dose: 81 mg Heparin Sodium (Porcine) (Heparin) 5,000 units SC Q8 [facility] Last Admin: 04/20/18 07:11 Dose: 5,000 units Piperacillin Sod/Tazobactam (Sod 3.375 gm/ Sodium Chloride) 100 mls @ 200 mls/hr IVPB Q8H [facility]; Protocol Last Admin: 04/20/18 06:08 Dose: 200 mls/hr Levetiracetam 1,500 mg/ (Dextrose) 115 mls @ 420 mls/hr IVPB Q12H [facility] Last Admin: 04/20/18 03:00 Dose: 420 mls/hr Propofol (Diprivan) 1,000 mg in 100 mls @ 2.735 mls/hr IV .Q24H PRN; Protocol PRN Reason: TITRATE PER MD ORDER Last Titration: 04/20/18 10:30 Dose: 20 mcg/kg/min, 10.941 mls/hr Sodium Chloride (Sodium Chloride 0.9%) 1,000 mls @ 50 mls/hr IV .Q20H [facility] Last Admin: 04/20/18 07:00 Dose: Not Given Valproate Sodium 1,000 mg/ (Sodium Chloride) 110 mls @ 100 mls/hr IVPB Q12H [facility] Last Admin: 04/20/18 06:35 Dose: 100 mls/hr Lacosamide 100 mg/ Sodium (Chloride) 60 mls @ 100 mls/hr IVPB Q12H [facility] Last Admin: 04/20/18 07:59 Dose: 100 mls/hr Midazolam HCl 100 mg/ Sodium (Chloride) 100 mls @ 0.92 mls/hr IV .Q24H [facility]; Protocol Last Admin: 04/19/18 15:50 Dose: 0.04 mg/kg/hr, 3.67 mls/hr Vancomycin/Sodium Chloride (Vancomycin 1 Gm/Ns 200 Ml) 1 gm in 200 mls @ 133 mls/hr IVPB Q24H [facility]; Protocol Stop: 04/25/18 09:01 Last Admin: 04/20/18 09:07 Dose: 133 mls/hr Insulin Aspart (Novolog) 0 unit SC Q6 [facility]; Protocol Last Admin: 04/20/18 06:27 Dose: Not Given Levothyroxine Sodium (Synthroid) 75 mcg PO DAILY@0630 [facility] Last Admin: 04/20/18 06:44 Dose: 75 mcg Lorazepam (Ativan) 1 mg IVP Q4H PRN PRN Reason: Seizure activity Last Admin: 04/20/18 09:31 Dose: 1 mg Pantoprazole Sodium (Protonix Susp) 40 mg GT DAILY [facility] Last Admin: 04/20/18 09:08 Dose: 40 mg Rosuvastatin Calcium (Crestor) 5 mg PO HS [facility] Last Admin: 04/19/18 21:43 Dose: 5 mg - Labs Labs: 04/20/18 06:23 04/20/18 06:24 PT 13.0 SECONDS (9.7-12.2) H 04/15/18 06:14 INR 1.2 04/15/18 06:14 APTT 28 SECONDS (21-34) 04/15/18 06:14
--- NOTE | 2018-04-20 14:56 | RAD ---
Date of service: 04/20/2018 HISTORY: ff up/vent COMPARISON: Comparison is made with 04/19/2018 FINDINGS: LUNGS: Appropriate position of the ETT. Interval mild increase in the pulmonary vascular congestion compared to the prior study. PLEURA: Small right pleural effusion. CARDIOVASCULAR: No aortic atherosclerotic calcification present. Normal cardiac size. [id number] pulmonary vascular congestion. OSSEOUS STRUCTURES: No significant abnormalities. VISUALIZED UPPER ABDOMEN: Normal. OTHER FINDINGS: Right-sided PICC line is again seen in place. The NG tube seen extending to the abdomen. IMPRESSION: Interval slight worsening of pulmonary vascular congestion.
[2018-04-20] MEDS ORDERED: Acetaminophen 650mg/20.3ml solution UD PO STA (18:14)
--- NOTE | 2018-04-20 20:22 | CP.PCM.PN ---
Subjective - Date & Time of Evaluation Date of Evaluation: 04/20/18 Time of Evaluation: 14:10 - Subjective Subjective: Patient seen and evaluated Intubated Unresponsive Physical Examination - Constitutional Appears: Other (intubated, on sedation, does not follow commands) - Head Exam Head Exam: NORMAL INSPECTION, NORMOCEPHALIC - Eye Exam Eye Exam: absent: Normal appearance, PERRL Pupil Exam: absent: NORMAL ACCOMODATION, PERRL Additional comments: Pupils fixed at 6 mm b/l No corneals No dolls eyes - ENT Exam ENT Exam: Mucous Membranes Moist (intubated) - Neck Exam Neck Exam: Normal Inspection - Respiratory Exam Respiratory Exam: absent: NORMAL BREATHING PATTERN (intubated) - Cardiovascular Exam Cardiovascular Exam: Tachycardia (130's) - Extremities Exam Extremities Exam: absent: Full ROM Additional comments: + tone noted to LUE, lessened to RUE - Neurological Exam Neurological Exam: Altered Additional comments: Pt is intubated, on sedation Does not follow commands Pupils fixed at 6 mm; no corneals or dolls eyes No purposeful or non-purposeful movements noted + tone to LUE, lessened to RUE + myoclonic movements noted to BUE intermittently Toes upgoing to right foot Normal patellar reflex to RLE; hyporeflexia to LLE - Skin Skin Exam: Normal Color Objective - Vital Signs/Intake and Output Vital Signs (last 24 hours): Temp Pulse Resp BP Pulse Ox 100.2 F H 95 H 19 119/74 97 04/20/18 19:19 04/20/18 19:00 04/20/18 19:00 04/20/18 19:00 04/20/18 19:00 Intake and Output: 04/20/18 04/21/18 18:59 06:59 Intake Total 2072.9 112.0 Output Total 725 100 Balance 1347.9 12.0 - Medications Medications: Current Medications Aspirin (Aspirin Chewable) 81 mg PO DAILY [facility] Last Admin: 04/20/18 09:07 Dose: 81 mg Heparin Sodium (Porcine) (Heparin) 5,000 units SC Q8 [facility] Last Admin: 04/20/18 14:09 Dose: 5,000 units Piperacillin Sod/Tazobactam (Sod 3.375 gm/ Sodium Chloride) 100 mls @ 200 mls/hr IVPB Q8H [facility]; Protocol Last Admin: 04/20/18 14:06 Dose: 200 mls/hr Levetiracetam 1,500 mg/ (Dextrose) 115 mls @ 420 mls/hr IVPB Q12H [facility] Last Admin: 04/20/18 13:31 Dose: 420 mls/hr Propofol (Diprivan) 1,000 mg in 100 mls @ 2.735 mls/hr IV .Q24H PRN; Protocol PRN Reason: TITRATE PER MD ORDER Last Titration: 04/20/18 13:19 Dose: 15 mcg/kg/min, 8.205 mls/hr Sodium Chloride (Sodium Chloride 0.9%) 1,000 mls @ 50 mls/hr IV .Q20H [facility] Last Admin: 04/20/18 14:49 Dose: 50 mls/hr Valproate Sodium 1,000 mg/ (Sodium Chloride) 110 mls @ 100 mls/hr IVPB Q12H [facility] Last Admin: 04/20/18 17:21 Dose: 100 mls/hr Lacosamide 100 mg/ Sodium (Chloride) 60 mls @ 100 mls/hr IVPB Q12H [facility] Last Admin: 04/20/18 07:59 Dose: 100 mls/hr Midazolam HCl 100 mg/ Sodium (Chloride) 100 mls @ 0.92 mls/hr IV .Q24H [facility]; Protocol Last Titration: 04/20/18 13:25 Dose: 0.04 mg/kg/hr, 3.67 mls/hr Vancomycin/Sodium Chloride (Vancomycin 1 Gm/Ns 200 Ml) 1 gm in 200 mls @ 133 mls/hr IVPB Q24H [facility]; Protocol Stop: 04/25/18 09:01 Last Admin: 04/20/18 09:07 Dose: 133 mls/hr Insulin Aspart (Novolog) 0 unit SC Q6 [facility]; Protocol Last Admin: 04/20/18 18:34 Dose: Not Given Levothyroxine Sodium (Synthroid) 75 mcg PO DAILY@0630 [facility] Last Admin: 04/20/18 06:44 Dose: 75 mcg Lorazepam (Ativan) 1 mg IVP Q4H PRN PRN Reason: Seizure activity Last Admin: 04/20/18 09:31 Dose: 1 mg Pantoprazole Sodium (Protonix Susp) 40 mg GT DAILY [facility] Last Admin: 04/20/18 09:08 Dose: 40 mg Rosuvastatin Calcium (Crestor) 5 mg PO HS [facility] Last Admin: 04/19/18 21:43 Dose: 5 mg - Labs Labs: 04/20/18 06:23 04/20/18 06:24 PT 13.0 SECONDS (9.7-12.2) H 04/15/18 06:14 INR 1.2 04/15/18 06:14 APTT 28 SECONDS (21-34) 04/15/18 06:14 Assessment and Plan - Assessment and Plan (Free Text) Assessment: Assessments: 1). Anoxic Brain Injury Status: Acute 2). Acute Respiratory Failure Status: Acute 3). Cardiac Arrest Status: Acute 4). Myoclonic Movements Status: Acute 5). Leukocytosis Status: Acute 6). Hx Hypothyroidism Status: Chronic
[2018-04-20] MEDS: Midazolam 50 mg/10 ml 100 MG in Sodium Chloride 0.9% 80 ML IV SCH (21:00)
[2018-04-21] MEDS: Sodium Chloride 0.9% 1,000 ML IV SCH ×2 (02:35→21:52)
[2018-04-21] MEDS: Piperacillin/Tazobact 3.375 GM in Sodium Chloride 100 ML IVPB SCH ×3 (05:15→21:52)
[2018-04-21 05:40] LABS: ABG ALLEN TEST POS; ARTERIAL BLOOD GAS HCO3 26.1 mmol/L (21-28); ARTERIAL BLOOD GAS HEMOGLOBIN 12.3 g/dL (11.7-17.4); ARTERIAL BLOOD GAS O2 SAT 98.2 % (95-98); ARTERIAL BLOOD GAS PCO2 30 mm/Hg (35-45); ARTERIAL BLOOD GAS PH 7.51 (7.35-7.45); ARTERIAL BLOOD GAS PO2 80 mm/Hg (80-100); ARTERIAL BLOOD GAS TCO2 24.8 mmol/L (22-28)
[2018-04-21] MEDS: Propofol 10 mg/ml 1,000 MG/100 ML VIAL IV PRN ×3 (05:40→21:53)
[2018-04-21] MEDS: Levothyroxine 75 MCG TAB PO SCH (05:40)
[2018-04-21] MEDS: Valproate 1,000 MG in Sodium Chloride 0.9% 100 ML IVPB SCH ×2 (05:45→17:42)
[2018-04-21] MEDS: (Novolog) Insulin Aspart, Recombinant 100 u/ml 10 ml vial SC SCH ×5 (06:00→23:22)
[2018-04-21 06:06] LABS: BASO % 0.2 % (0.0-2.0); EOS # 0.3 K/uL (0.0-0.7); EOS % 2.9 % (0.0-4.0); HEMOGLOBIN 12.4 g/dL (12.0-18.0); LYMPH # 0.9 K/uL (1.0-4.3); LYMPH % 7.7 % (20.0-40.0); MEAN CORPUSCULAR HEMOGLOBIN 31.3 pg (27.0-31.0); MEAN CORPUSCULAR HGB CONC 33.3 g/dL (33.0-37.0); MONO # 0.7 K/uL (0.0-0.8); NEUT # 9.8 K/uL (1.8-7.0); NEUT % 83.2 % (50.0-75.0); PLATELET COUNT 152 K/uL (130-400); RBC 3.95 Mil/uL (4.40-5.90); RED CELL DISTRIBUTION WIDTH 12.6 % (11.5-14.5); WHITE BLOOD COUNT 11.8 K/uL (4.8-10.8)
[2018-04-21 06:30] LABS: ALB/GLOB RATIO 1.1 (1.0-2.1); ALBUMIN 2.9 g/dL (3.5-5.0); ALT/SGPT 38 U/L (21-72); AST/SGOT 67 U/L (17-59); BLOOD UREA NITROGEN 20 mg/dL (9-20); CALCIUM 8.3 mg/dl (8.6-10.4); GFR NON-AFRICAN AMERICAN > 60
--- NOTE | 2018-04-21 08:27 | CP.PCM.PN ---
Subjective - Date & Time of Evaluation Date of Evaluation: 04/21/18 Time of Evaluation: 08:20 - Subjective Subjective: Medical attending note Patient seen, examined. Patient undergoing EEG at bedside. Discussed with patient's nurse noted for patient was febrile overnight at 100.9 Fahrenheit. Patient has had a bowel movement yesterday. No family present at bedside. Patient is currently on Versed drip, valproic acid, Keppra, and as needed Ativan as needed. Unable to review of systems secondary to clinical status. Objective - Vital Signs/Intake and Output Vital Signs (last 24 hours): Temp Pulse Resp BP Pulse Ox 100.9 F H 92 H 23 120/71 97 04/21/18 08:00 04/21/18 08:00 04/21/18 08:00 04/21/18 08:00 04/21/18 08:00 Intake and Output: 04/21/18 04/21/18 06:59 18:59 Intake Total 1930.0 229.4 Output Total 830 135 Balance 1100.0 94.4 - Medications Medications: Current Medications Acetaminophen (Tylenol 325mg Tab) 650 mg NG Q6 PRN PRN Reason: Fever >100.4 F Aspirin (Aspirin Chewable) 81 mg PO DAILY [facility] Last Admin: 04/20/18 09:07 Dose: 81 mg Heparin Sodium (Porcine) (Heparin) 5,000 units SC Q8 [facility] Last Admin: 04/21/18 05:40 Dose: 5,000 units Piperacillin Sod/Tazobactam (Sod 3.375 gm/ Sodium Chloride) 100 mls @ 200 mls/hr IVPB Q8H [facility]; Protocol Last Admin: 04/21/18 05:15 Dose: 200 mls/hr Levetiracetam 1,500 mg/ (Dextrose) 115 mls @ 420 mls/hr IVPB Q12H [facility] Last Admin: 04/21/18 01:30 Dose: 420 mls/hr Propofol (Diprivan) 1,000 mg in 100 mls @ 2.735 mls/hr IV .Q24H PRN; Protocol PRN Reason: TITRATE PER MD ORDER Last Admin: 04/21/18 05:40 Dose: 20 mcg/kg/min, 10.941 mls/hr Sodium Chloride (Sodium Chloride 0.9%) 1,000 mls @ 50 mls/hr IV .Q20H [facility] Last Admin: 04/21/18 02:35 Dose: Not Given Valproate Sodium 1,000 mg/ (Sodium Chloride) 110 mls @ 100 mls/hr IVPB Q12H [facility] Last Admin: 04/21/18 05:45 Dose: 100 mls/hr Lacosamide 100 mg/ Sodium (Chloride) 60 mls @ 100 mls/hr IVPB Q12H [facility] Last Admin: 04/20/18 21:00 Dose: 100 mls/hr Midazolam HCl 100 mg/ Sodium (Chloride) 100 mls @ 0.92 mls/hr IV .Q24H [facility]; Protocol Last Admin: 04/20/18 21:00 Dose: 0.04 mg/kg/hr, 3.67 mls/hr Vancomycin/Sodium Chloride (Vancomycin 1 Gm/Ns 200 Ml) 1 gm in 200 mls @ 133 mls/hr IVPB Q24H [facility]; Protocol Stop: 04/25/18 09:01 Last Admin: 04/20/18 09:07 Dose: 133 mls/hr Insulin Aspart (Novolog) 0 unit SC Q6 [facility]; Protocol Last Admin: 04/21/18 06:00 Dose: Not Given Levothyroxine Sodium (Synthroid) 75 mcg PO DAILY@0630 [facility] Last Admin: 04/21/18 05:40 Dose: 75 mcg Lorazepam (Ativan) 1 mg IVP Q4H PRN PRN Reason: Seizure activity Last Admin: 04/21/18 01:20 Dose: 1 mg Pantoprazole Sodium (Protonix Susp) 40 mg GT DAILY [facility] Last Admin: 04/20/18 09:08 Dose: 40 mg Rosuvastatin Calcium (Crestor) 5 mg PO HS [facility] Last Admin: 04/20/18 21:00 Dose: 5 mg - Labs Labs: 04/21/18 05:59 04/21/18 05:59 PT 13.0 SECONDS (9.7-12.2) H 04/15/18 06:14 INR 1.2 04/15/18 06:14 APTT 28 SECONDS (21-34) 04/15/18 06:14 - Constitutional Appears: Non-toxic, No Acute Distress - Head Exam Head Exam: NORMAL INSPECTION - Eye Exam Eye Exam: absent: Nystagmus, Scleral icterus Pupil Exam: PERRL. absent: Fixed, Irregular - ENT Exam ENT Exam: Mucous Membranes Moist - Respiratory Exam Respiratory Exam: NORMAL BREATHING PATTERN. absent: Respiratory Distress - Cardiovascular Exam Cardiovascular Exam: REGULAR RHYTHM, +S1, +S2 Additional comments: noted crepitus over the ribs secondary to chest compressions - GI/Abdominal Exam GI & Abdominal Exam: Distended, Soft, Normal Bowel Sounds. absent: Firm, Guarding, Rigid, Tenderness, Rebound - Exam Additional comments: terry present - Extremities Exam Extremities Exam: absent: Pedal Edema, Tenderness - Neurological Exam Neurological Exam: Altered Additional comments: sedated - Skin Skin Exam: Dry, Normal Color, Warm Assessment and Plan (1) Cardiac arrest Status: Acute (2) Anoxic brain injury Status: Acute (3) STEMI (ST elevation myocardial infarction) Status: Acute (4) Leukocytosis Status: Acute (5) Transaminitis Status: Acute (6) Myoclonic jerking Status: Acute (7) Prophylactic measure Status: Acute Attending/Attestation - Attestation I have personally seen and examined this patient.: Yes I have fully participated in the care of the patient.: Yes I have reviewed all pertinent clinical information, including history, physical exam and plan: Yes Notes (Text): 43 year old male who was admitted after cardiopulmonary arrest. Anoxic brain injury is suspected. He is currently intubated and on Keppra, Vimpat, Midazolam, Propofol and Valproic Acid. Hypothermic protocol was completed 04/15/18. Video EEG was completed and official read is pending. He is on Zosyn and Vancomycin for leukocytosis with Blood Culture 04/13/18 currently negative to date and Urine Cultures 04/13/18 and 04/14/18 showing NO growth. In light of the high fevers on 04/19/18, repeat Urine and Blood Cultures ordered. Neurology Dr. Snider is on board and has informed Son Jer and of poor prognosis during course of hospitalization. Patient's code status is presently Full Code. In review of prior notes, the ICU doctors have spoken with family extensively and is currently in the process of arranging transfer to [facility] as per the family's request Chest X Ray 04/19/18: Pulmonary vascular congestion and bilateral pleural effusions larger on the left, appropriate position of the support devices Follow up Chest X Ray from this morning 04/20/18 The following studies have been performed: EEG presently on going 1). Video EEG (04/18/18): This is an abnormal video EEG. Shows GPEDS, and BIPLEDs, indicative of severe anoxic injury. There are no seizures at this time. 2). CT Head (04/18/18): Probable diffuse hypoxic insult with diffuse cerebral edema and loss of pablo/white matter differentiation. NO evidence of herniation. NO focal vascular territorial infarct. Chronis pansinusitis. Mild nonspecific bilateral mastoid effusion. 3). EEG (04/15/18): This is an abnormal EEG record that demonstrate the presence of severe non specific diffuse disturbance of cortical activity, this is keeping with a diffuse pablo matter dysfunction, these findings are not specific. There were rhythmic muscle artifact seen, most likely mycolonus, this are usually seen in hypoxic brain insults, please correlate clinically. No seizures. Patient is not in status epilepticus 4). CT Head (04/15/18): Extensive diffuse homogeneous appearance of the brain parenchyma with loss of the cortico-medullary distinction and on diminution of cerebral sulci. Findings consistent with sequela diffuse hypoxia. 5). CT Head (04/14/18): Little interval change in mild diffuse effacement of cortical sulci and indistinct pablo-white matter differentiation related to hypoxic-anoxic insult with the stated clinical history. 6). CT Head (04/13/18): No acute intracranial hemorrhage. There is mild homogeneous appearance of the brain parenchyma with subtle indistinct appearance of the cortico-medullary junction. Findings could represent mild diffuse cerebral edema related to hypoxia however clinical correlation suggested. He is on the following medications: Lacosamide 100 mg IV Q12H Levetiracetam 1,5000 mg IV Q12H Midazolam 100 mg IV Q24H Propofol Drip Valproate 1,000 mg IV Q12H Zosyn 3.375 gm IV Q8H Vancomycin 1 gm IV Q24H Levothyroxine 75 mcg via OGT 1x/day Protonix 40 mg IV Q24H Heparin 5,000 Units SC Q8H Aspart ISS Q6H Jevity @ 50 ml/hr NS @ 50 ml/hr ROS is not possible due to patient unresponsiveness General: Intubated on vent with NGT, no jerking movements HEENT: Pupils are now dilated and sluggishly reactive to light, NO lymphadenopathy, NO thyromegaly Cardio: NS1 and NS2, NO M/R/G with tachycardia Resp: Breath sounds are clear today 04/19/18 GI: Central Obesity, BS are decreased in all 4 quadrants, Soft, no guarding Ext: Pulses are strong and equal upper and lower extremities, NO edema, Capillary refill is 2 seconds Neuro: exam is not possible, patient appears comatose Assessments: 1). Anoxic Brain Injury Status: Acute * neuro on board * keppra, versed, depakote, propofol, and prn ativan * noted imaging CT heads completed and 2nd eeg in progress at bedside 2). Acute Respiratory Failure Status: Acute * intubated and sedated 3). Cardiac Arrest Status: Acute * Cardiology on board * Normal coronaries per cath 4). Myoclonic Movements Status: Acute * keppra, versed, depakote, propofol, and prn ativan 5). Leukocytosis Status: Acute * Repeat blood cultures from 04/19/17: negative for 24 hours * Urine culture: no growth * on empiric Zosyn and Vancomycin * Add tylenol prn for fever * procalcitonin: 0.38 (04/13/18) * pending official report 04/18/18 venous doppler 6). Hx Hypothyroidism Status: Chronic * patient is on Synthroid 75mcg PO am 7) prophylactic measure * protonix 40mg gt daily * Heparin 5000unit subq 8H * Poor prognosis
[2018-04-21 08:33] LABS: BANDS 1 % (0-2); EOSINOPHIL 2 % (0-4); MONOCYTE 5 % (0-10); TOTAL CELLS COUNTED 100
[2018-04-21 08:34] LABS: LYMPHOCYTE 6 % (20-40); NEUTROPHIL 86 % (50-75); PLATELET ESTIMATE NORMAL (NORMAL)
--- NOTE | 2018-04-21 08:48 | CP.CCUPN ---
CCU Subjective - Physician Review Subjective (Free Text): 04/21/18 11:49 ICU Progress Note for Dr. Sheriff Pt seen and examined at bedside this am. Currently intubated and sedated. Unable to obtain HPI and ROS due to pt's current mental status. No acute events reported overnight. Today, pt was able to move extremities in response to pain on exam. CCU Objective - Vital Signs / Intake & Output Vital Signs (Last 4 hours): Vital Signs Temp Pulse Resp BP Pulse Ox 04/21/18 08:00 100.9 F H 92 H 23 120/71 97 04/21/18 07:00 87 18 119/68 99 04/21/18 06:00 96 H 20 138/82 99 04/21/18 05:00 98 H 22 146/85 100 Intake and Output (Last 8hrs): Intake & Output 04/20/18 04/21/18 04/21/18 22:59 06:59 14:59 Intake Total 1350.4 1227.6 229.4 Output Total 550 590 135 Balance 800.4 637.6 94.4 Weight 206 lb 5 oz Intake: IV 109 100 Intake, IV Amount 651.4 667.6 129.4 Left Antecubital 71.8 88 22 Right Arm PICC Distal 11.1 29.6 7.4 Port Right Arm PICC Distal 18.5 Port Y-site Right Arm PICC Proximal 550 550 100 Port Oral 90 60 Tube Feeding 400 400 100 Other 100 Output: Urine 550 590 135 Urethral (Terry) 550 590 135 Other: # Bowel Movements 1 0 - Physical Exam Physical Exam Limitations: Positive for: Altered Mental Status Head: Positive for: Atraumatic, Normocephalic Pupils: Positive for: PERRL Extroacular Muscles: Positive for: EOMI Conjunctiva: Positive for: Normal Mouth: Positive for: Moist Mucous Membranes Neck: Negative for: JVD, Lymphadenopathy Respiratory/Chest: Positive for: Other (on ventilator). Negative for: Respiratory Distress, Accessory Muscle Use, Wheezes, Rhonchi Cardiovascular: Positive for: Normal S1, S2. Negative for: Murmurs, Rub, Gallop Abdomen: Positive for: Normal Bowel Sounds. Negative for: Tenderness, Distention, Mass/Organomegaly Upper Extremity: Positive for: Normal Inspection, NORMAL PULSES, Neurovascularly Intact, Capillary Refill < 2s. Negative for: Cyanosis, Edema Lower Extremity: Positive for: Normal Inspection, NORMAL PULSES, Neurovascularly Intact, Capillary Refill < 2 s. Negative for: Edema, Cyanosis Skin: Positive for: Warm, Dry, Rashes Psychiatric: Positive for: Other (intubated) - Medications Active Medications: Active Medications Generic Name Dose Route Start Last Admin Trade Name Freq PRN Reason Stop Dose Admin Acetaminophen 650 mg 04/21/18 08:24 Tylenol 325mg Tab NG Q6 PRN Fever >100.4 F Aspirin 81 mg 04/19/18 10:00 04/20/18 09:07 Aspirin Chewable PO 81 mg DAILY ROBERT Administration Heparin Sodium (Porcine) 5,000 units 04/14/18 14:00 04/21/18 05:40 Heparin SC 5,000 units Q8 ROBERT Administration Piperacillin Sod/Tazobactam 100 mls @ 200 mls/hr 04/13/18 14:15 04/21/18 05:15 Sod 3.375 gm/ Sodium Chloride IVPB 200 mls/hr Q8H ROBERT Administration Protocol Levetiracetam 1,500 mg/ 115 mls @ 420 mls/hr 04/13/18 14:30 04/21/18 01:30 Dextrose IVPB 420 mls/hr Q12H ROBERT Administration Propofol 1,000 mg in 100 mls @ 2.735 mls/hr 04/13/18 22:57 04/21/18 05:40 Diprivan IV 20 mcg/kg/min .Q24H PRN 10.941 mls/hr TITRATE PER MD ORDER Administration Protocol 5 MCG/KG/MIN Sodium Chloride 1,000 mls @ 50 mls/hr 04/14/18 10:36 04/21/18 02:35 Sodium Chloride 0.9% IV Not Given .Q20H ROBERT Valproate Sodium 1,000 mg/ 110 mls @ 100 mls/hr 04/15/18 18:00 04/21/18 05:45 Sodium Chloride IVPB 100 mls/hr Q12H ROBERT Administration Lacosamide 100 mg/ Sodium 60 mls @ 100 mls/hr 04/15/18 20:00 04/20/18 21:00 Chloride IVPB 100 mls/hr Q12H ROBERT Administration Midazolam HCl 100 mg/ Sodium 100 mls @ 0.92 mls/hr 04/19/18 13:45 03/10/19 21:00 Chloride IV 0.04 mg/kg/hr .Q24H ROBERT 3.67 mls/hr Administration Protocol 0.01 MG/KG/HR Vancomycin/Sodium Chloride 1 gm in 200 mls @ 133 mls/hr 04/20/18 09:00 04/20/18 09:07 Vancomycin 1 Gm/Ns 200 Ml IVPB 04/25/18 09:01 133 mls/hr Q24H ROBERT Administration Protocol Insulin Aspart 0 unit 04/17/18 00:00 04/21/18 06:00 Novolog SC Not Given Q6 ROBERT Protocol Levothyroxine Sodium 75 mcg 04/17/18 06:30 04/21/18 05:40 Synthroid PO 75 mcg DAILY@0630 ROBERT Administration Lorazepam 1 mg 04/17/18 17:30 04/21/18 01:20 Ativan IVP 1 mg Q4H PRN Administration Seizure activity Pantoprazole Sodium 40 mg 04/19/18 10:00 04/20/18 09:08 Protonix Susp GT 40 mg DAILY ROBERT Administration Rosuvastatin Calcium 5 mg 04/18/18 22:00 04/20/18 21:00 Crestor PO 5 mg HS ROBERT Administration - Patient Studies Lab Studies: Microbiology Studies 04/19/18 08:30 Blood Culture - Preliminary Blood-Venous NO GROWTH AFTER 48 HOURS 04/19/18 08:00 Blood Culture - Preliminary Blood-Venous NO GROWTH AFTER 48 HOURS 04/19/18 08:30 Urine Culture - Final Urine,Catheterized No Growth (<1,000 CFU/ML) Lab Studies 04/21/18 04/21/18 04/21/18 Range/Units 05:59 05:59 05:30 WBC 11.8 H (4.8-10.8) K/uL RBC 3.95 L (4.40-5.90) Mil/uL Hgb 12.4 (12.0-18.0) g/dL Hct 37.2 (35.0-51.0) % MCV 94.0 (80.0-94.0) fL MCH 31.3 H (27.0-31.0) pg MCHC 33.3 (33.0-37.0) g/dL RDW 12.6 (11.5-14.5) % Plt Count 152 (130-400) K/uL MPV 8.0 (7.2-11.7) fL Neut % (Auto) 83.2 H (50.0-75.0) % Lymph % (Auto) 7.7 L (20.0-40.0) % [place] % (Auto) 6.0 (0.0-10.0) % Eos % (Auto) 2.9 (0.0-4.0) % Baso % (Auto) 0.2 (0.0-2.0) % Neut # (Auto) 9.8 H (1.8-7.0) K/uL Lymph # (Auto) 0.9 L (1.0-4.3) K/uL [place] # (Auto) 0.7 (0.0-0.8) K/uL Eos # (Auto) 0.3 (0.0-0.7) K/uL Baso # (Auto) 0.0 (0.0-0.2) K/uL Neutrophils % (Manual) 86 H (50-75) % Band Neutrophils % 1 (0-2) % Lymphocytes % (Manual) 6 L (20-40) % Monocytes % (Manual) 5 (0-10) % Eosinophils % (Manual) 2 (0-4) % Platelet Estimate Normal (NORMAL) Puncture Site Rradial pCO2 30 L (35-45) mm/Hg pO2 80 (80-100) mm/Hg HCO3 26.1 (21-28) mmol/L ABG pH 7.51 H (7.35-7.45) ABG Total CO2 24.8 (22-28) mmol/L ABG O2 Saturation 98.2 H (95-98) % ABG Base Excess 1.6 (-2.0-3.0) mmol/L ABG Hemoglobin 12.3 (11.7-17.4) g/dL ABG Carboxyhemoglobin 1.4 (0.5-1.5) % POC ABG HHb (Measured) 1.8 (0.0-5.0) % ABG Methemoglobin 0.9 (0.0-3.0) % Jose Test Pos A-a O2 Difference 310.0 mm/Hg Respiratory Index 3.9 Hgb O2 Saturation 95.9 (95.0-98.0) % Vent Mode Prvc Mechanical Rate 18 FiO2 60.0 % Tidal Volume 500 PEEP 5 Sodium 135 (132-148) mmol/L Potassium 3.8 (3.6-5.2) mmol/L Chloride 105 (98-107) mmol/L Carbon Dioxide 25 (22-30) mmol/L Anion Gap 9 L (10-20) BUN 20 (9-20) mg/dL Creatinine 0.8 (0.8-1.5) mg/dL Est GFR ( Amer) > 60 Est GFR (Non-Af Amer) > 60 Random Glucose 131 H (75-110) mg/dL Calcium 8.3 L (8.6-10.4) mg/dl Phosphorus 2.7 (2.5-4.5) mg/dL Magnesium 2.2 (1.6-2.3) mg/dL Total Bilirubin 0.3 (0.2-1.3) mg/dL AST 67 H D (17-59) U/L ALT 38 (21-72) U/L Alkaline Phosphatase 104 (38-126) U/L Total Protein 5.6 L (6.3-8.3) g/dL Albumin 2.9 L (3.5-5.0) g/dL Globulin 2.6 (2.2-3.9) gm/dL Albumin/Globulin Ratio 1.1 (1.0-2.1) Laboratory Results - last 24 hr 04/21/18 04/21/18 04/21/18 05:30 05:59 05:59 WBC 11.8 H RBC 3.95 L Hgb 12.4 Hct 37.2 MCV 94.0 MCH 31.3 H MCHC 33.3 RDW 12.6 Plt Count 152 MPV 8.0 Neut % (Auto) 83.2 H Lymph % (Auto) 7.7 L [place] % (Auto) 6.0 Eos % (Auto) 2.9 Baso % (Auto) 0.2 Neut # (Auto) 9.8 H Lymph # (Auto) 0.9 L [place] # (Auto) 0.7 Eos # (Auto) 0.3 Baso # (Auto) 0.0 Neutrophils % (Manual) 86 H Band Neutrophils % 1 Lymphocytes % (Manual) 6 L Monocytes % (Manual) 5 Eosinophils % (Manual) 2 Platelet Estimate Normal Puncture Site Rradial pCO2 30 L pO2 80 HCO3 26.1 ABG pH 7.51 H ABG Total CO2 24.8 ABG O2 Saturation 98.2 H ABG Base Excess 1.6 ABG Hemoglobin 12.3 ABG Carboxyhemoglobin 1.4 POC ABG HHb (Measured) 1.8 ABG Methemoglobin 0.9 Jose Test Pos A-a O2 Difference 310.0 Respiratory Index 3.9 Hgb O2 Saturation 95.9 Vent Mode Prvc Mechanical Rate 18 FiO2 60.0 Tidal Volume 500 PEEP 5 Sodium 135 Potassium 3.8 Chloride 105 Carbon Dioxide 25 Anion Gap 9 L BUN 20 Creatinine 0.8 Est GFR ( Amer) > 60 Est GFR (Non-Af Amer) > 60 Random Glucose 131 H Calcium 8.3 L Phosphorus 2.7 Magnesium 2.2 Total Bilirubin 0.3 AST 67 H D ALT 38 Alkaline Phosphatase 104 Total Protein 5.6 L Albumin 2.9 L Globulin 2.6 Albumin/Globulin Ratio 1.1 Radiology Impressions: Radiology Impressions Chest X-Ray 04/20/18 06:00 IMPRESSION: Interval slight worsening of pulmonary vascular congestion. Fingerstick Blood Sugar Results: 145 Review of Systems - Review of Systems Systems not reviewed;Unavailable: Intubated Critical Care Progress Note - Nutrition Nutrition: Nutrition Category Date Time Status NPO Diet [DIET] Diets 04/13/18 Dinner Active Assessment/Plan - Assessment and Plan (Free Text) Assessment: 43 y o male with PMhx hypothyroidism, obesity, HLD, found unresponsive in parking lot in cardiac arrest, s/p ROSC. Cardiac cath demonstrated clean arteries, hypothermic protocol completed, monitoring neurologic status. Likely has poor prognosis. Pt was in status epilepticus on triple antiepileptic medication as per Neuro, titrated off Nimbex. Currently on Versed, Valproate, and Propofol. 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 Currently intubated. Plan: Neuro: -Intubated and sedated -On Versed and Propofol drips, Versed increased for seizure control -Nimbex titrated off -F/u video EEG results -Lacosamide 100 mg IVPB q12h -Keppra 1500 mg q12h -Valproate 1 g q 12h -Ativan 1 mg q4h prn for agitation -Neuro consulted (Dr. Escobar), recs appreciated -CT on admission indicative of edema -Repeat CT: diffuse homogeneous appearance of brain parenchyma w/ loss of corticomedullary distinction -Repeat CT demonstrates minimal change from prior CTs Cardio: -Vitals stable -Clean coronary arteries -EF 65% -Cont to monitor Resp: -On ventilator -Settings 18/60/500/5 -Cont to monitor Renal: -BUN/Cr 20/0.8, wnl -NS @ 50 cc/hr GI: -Jevity 1.5 at rate of 20 ml/hr, goal to 50, increase by 5 -Stop free water flushes Heme/ID: -H/H 12.4/37.2, stable -WBC 11.8 -Urine terry cx 04/20 pos for gram neg andrew, f/u final sensitivities -?sepsis -Vanco/zosyn Endo: -Hx hypothyroidism TSH initial 0.06 C/w Synthroid 75 mcg daily Dispo: Family interested in Peg and trach placement. Will f/u once video EEG is completed. Pt seen, examined with, and plan discussed with Dr. Sheriff, attending physician. Naveen Robertson DO PGY-1, Bulldozer/Loader/Compactor/Scraper Pager #[phone]
[2018-04-21] MEDS: SODIUM CHLORIDE 0.9% IVPB SCH ×2 (09:01→20:41)
[2018-04-21] MEDS: LACOSAMIDE IVPB SCH ×2 (09:01→20:41)
[2018-04-21] MEDS: Acetaminophen 650mg/20.3ml solution UD PO PRN ×3 (09:05→21:52)
[2018-04-21] MEDS: Pantoprazole 40 mg Susp UD GT SCH (09:05)
--- NOTE | 2018-04-21 09:30 | RAD ---
Date of service: 04/21/2018 HISTORY: Ventilator COMPARISON: None available. FINDINGS: LUNGS: Lines and tubes in stable position. Moderate to severe venous congestion. Patchy bibasilar airspace opacities. PLEURA: Small right and moderate left pleural effusion. CARDIOVASCULAR: No aortic atherosclerotic calcification present. Normal cardiac size. Venous congestion. OSSEOUS STRUCTURES: No significant abnormalities. VISUALIZED UPPER ABDOMEN: Normal. OTHER FINDINGS: None. IMPRESSION: Worsening bibasilar airspace opacities and effusions.
[2018-04-21] MEDS: Vancomycin 1 gm/NS 200 ml 1 GM/200 ML BAG IVPB SCH (10:09)
--- NOTE | 2018-04-21 10:14 | PCM.VEEG ---
Video EEG - Procedure Start Date: 04/20/18 Start Time: 15:10 End Date: 04/21/18 End Time: 04:55 Technical Summary: DATA ACQUISITION: This was a multichannel inpatient video-EEG, a minimum of 22 channels were utilized, performed in accordance with recommendations specified by the [place] [employer] (Mari Feng et al. ACNS Guideline 1: Minimum Technical Requirements for Performing Clinical Electroencephalography. Journal of Clinical Neurophysiology 2016;33:303-7). The 10-20 electrode placement system was utilized in accordance with guidelines detailed by the International Federation of Clinical Neurophysiology (Eddie Rubalcava et al. The Ten-Twenty Electrode System of the International Federation. Recommendations for the Practice of Clinical Neurophysiology: Guidelines of the International Federation of Clinical Physiology 1999; EEG Suppl. 52.). DATA REVIEW / SPIKE DETECTION / DIGITAL ANALYSIS: The entire EEG was scanned and reviewed. Synchronized audio and video recording were reviewed at the time of each alarm and whenever an abnormality or suspicious activity was noted. The entire recording was analyzed utilizing an automated digital spike and seizure analysis program and all automatic spike and seizure detections were manually reviewed. A compressed spectral array was displayed and reviewed alongside the raw EEG tracings. In addition, further analysis of the EEG was performed when abnormalities were identified, including montage changes, dipole source localization, and frequency band identification. This study was attended 24 hours per day. - Interpretation Description of the study: Indication; status epilepticus. EEG Finding during wakefulness: On the entire study was not discernible awake EEG background, there was continuous diffuse marked bilateral attenuation with frequencies in the 4 to 5 Hz. EEG Finding during sleep: Normal sleep architecture was not seen Interictal non-epileptiform abnormalities: None Interictal epileptiform abnormalities: None Ictal epileptiform abnormalities: None - Impression Impression: This was an abnormal video EEG, monitoring study, due to the presence of: 1- Severe background slowing/attenuation . No seizures, not in status epilepticus. INTERPRETATION: The above mentioned findings are in keeping with a severe non specific diffuse disturbance of cortical activity. This is in keeping with a diffuse pablo matter dysfunction. The findings do not suggest a specific etiology.
--- NOTE | 2018-04-21 11:52 | CP.PCM.PN ---
Subjective - Date & Time of Evaluation Date of Evaluation: 04/21/18 Time of Evaluation: 10:00 - Subjective Subjective: Progress note for Dr. Snider. Patient seen and evaluated at bedside. Patient has fever this morning (tmax, 100.9) and treated with tylenol. Unable to obtain ROS as due to clinical condition. Objective - Vital Signs/Intake and Output Vital Signs (last 24 hours): Temp Pulse Resp BP Pulse Ox 98.8 F 82 18 98/57 L 98 04/21/18 10:05 04/21/18 11:00 04/21/18 11:00 04/21/18 11:00 04/21/18 11:00 Intake and Output: 04/21/18 04/21/18 06:59 18:59 Intake Total 1930.0 788.4 Output Total 830 340 Balance 1100.0 448.4 - Medications Medications: Current Medications Acetaminophen (Tylenol 650mg/20.3ml Solution Ud) 650 mg PO Q6 PRN PRN Reason: Temperaure >100.4 Last Admin: 04/21/18 09:05 Dose: 650 mg Aspirin (Aspirin Chewable) 81 mg PO DAILY ROBERT Last Admin: 04/21/18 09:06 Dose: 81 mg Heparin Sodium (Porcine) (Heparin) 5,000 units SC Q8 ROBERT Last Admin: 04/21/18 05:40 Dose: 5,000 units Piperacillin Sod/Tazobactam (Sod 3.375 gm/ Sodium Chloride) 100 mls @ 200 mls/hr IVPB Q8H ROBERT; Protocol Last Admin: 04/21/18 05:15 Dose: 200 mls/hr Levetiracetam 1,500 mg/ (Dextrose) 115 mls @ 420 mls/hr IVPB Q12H ROBERT Last Admin: 04/21/18 01:30 Dose: 420 mls/hr Propofol (Diprivan) 1,000 mg in 100 mls @ 2.735 mls/hr IV .Q24H PRN; Protocol PRN Reason: TITRATE PER MD ORDER Last Admin: 04/21/18 05:40 Dose: 20 mcg/kg/min, 10.941 mls/hr Sodium Chloride (Sodium Chloride 0.9%) 1,000 mls @ 50 mls/hr IV .Q20H ROBERT Last Admin: 04/21/18 02:35 Dose: Not Given Valproate Sodium 1,000 mg/ (Sodium Chloride) 110 mls @ 100 mls/hr IVPB Q12H ROBERT Last Admin: 04/21/18 05:45 Dose: 100 mls/hr Lacosamide 100 mg/ Sodium (Chloride) 60 mls @ 100 mls/hr IVPB Q12H ROBERT Last Admin: 04/21/18 09:01 Dose: 100 mls/hr Midazolam HCl 100 mg/ Sodium (Chloride) 100 mls @ 0.92 mls/hr IV .Q24H ROBERT; Protocol Last Titration: 04/21/18 09:30 Dose: 0.02 mg/kg/hr, 2 mls/hr Vancomycin/Sodium Chloride (Vancomycin 1 Gm/Ns 200 Ml) 1 gm in 200 mls @ 133 mls/hr IVPB Q24H ROBERT; Protocol Stop: 04/25/18 09:01 Last Admin: 04/21/18 10:09 Dose: 133 mls/hr Insulin Aspart (Novolog) 0 unit SC Q6 ROBERT; Protocol Last Admin: 04/21/18 06:00 Dose: Not Given Levothyroxine Sodium (Synthroid) 75 mcg PO DAILY@0630 [facility] Last Admin: 04/21/18 05:40 Dose: 75 mcg Lorazepam (Ativan) 1 mg IVP Q4H PRN PRN Reason: Seizure activity Last Admin: 04/21/18 01:20 Dose: 1 mg Pantoprazole Sodium (Protonix Susp) 40 mg GT DAILY [facility] Last Admin: 04/21/18 09:05 Dose: 40 mg Rosuvastatin Calcium (Crestor) 5 mg PO HS [facility] Last Admin: 04/20/18 21:00 Dose: 5 mg - Labs Labs: 04/21/18 05:59 04/21/18 05:59 PT 13.0 SECONDS (9.7-12.2) H 04/15/18 06:14 INR 1.2 04/15/18 06:14 APTT 28 SECONDS (21-34) 04/15/18 06:14 - Constitutional Appears: No Acute Distress - Head Exam Head Exam: ATRAUMATIC, NORMOCEPHALIC - Eye Exam Eye Exam: Normal appearance, PERRL - ENT Exam ENT Exam: Mucous Membranes Moist - Neck Exam Neck Exam: Normal Inspection - Respiratory Exam Respiratory Exam: Clear to Ausculation Bilateral. absent: Rales, Rhonchi, Whe ezes Additional comments: On mechanical ventilation: FiO2 60, rate 18, Volume 0.5, PEEP 5. - Cardiovascular Exam Cardiovascular Exam: REGULAR RHYTHM, +S1, +S2 - GI/Abdominal Exam GI & Abdominal Exam: Soft, Normal Bowel Sounds. absent: Distended, Firm, Guarding, Rigid, Tenderness - Extremities Exam Extremities Exam: Normal Inspection. absent: Full ROM - Neurological Exam Additional comments: Patient intubated and sedated. Does not respond to sternal rub. PERRL. Doll's eyes negative. Corneal reflex absent. Minimal gag reflex. Babinski reflex absent. Myoclonic movements to LUE noted. - Skin Skin Exam: Normal Color, Warm Assessment and Plan - Assessment and Plan (Free Text) Assessment: 43 yo M with anoxic brain injury Plan: -EEG (04/21/18): Abnormal video EEG, monitoring study, due to the presence of severe background slowwing/attenuation. No seizures, not in status epilepticus. The findings are in keeping with a severe non specific diffuse disturbance of cortical activity and diffuse pablo matter dysfunction. The findings do not suggest a specific etiology. -EEG (04/18/18): Abnormal video EEG that shows GPEDS and BIPLEDs, indicative of severe anoxic injury. No seizures at this time. -CT Head (04/18/18): Probable diffuse hypoxic insult with diffuse cerebral edema and loss of palbo/white matter differentiation. No evidence of herniation. No focal vascular territorial infarct. Chronic pansinusitis. Mild nonspecific bilateral mastoid effusion. -EEG (04/15/18): This is an abnormal EEG record that demonstrate the presence of severe non specific diffuse disturbance of cortical activity, this is keeping with a diffuse pablo matter dysfunction, these findings are not specific. There were rhythmic muscle artifact seen, most likely mycolonus, this are usually seen in hypoxic brain insults, please correlate clinically. No seizures. Patient is not in status epilepticus -CT head (04/15/18): Extensive diffuse homogeneous appearance of the brain parenchyma with loss of the corticomedullary distinction and on diminution of cerebral sulci. Findings consistent with sequela diffuse hypoxia. -CT head (04/14/18): Little interval change in mild diffuse effacement of cortical sulci and indistinct pablo-white matter differentiation related to hypoxic-anoxic insult with the stated clinical history. -CT head (04/13/18): No acute intracranial hemorrhage. There is mild homogeneous appearance of the brain parenchyma with subtle indistinct appearance of the corticomedullary junction. Findings could represent mild diffuse cerebral edema related to hypoxia however clinical correlation suggested. -F/u MRI brain without contrast to rule out CVA -Trial of decreased sedation. Propofol decreased from 20 to 12mcg/kg. Observe. -Continue valproate, keppra, and vimpat Discussed with Dr. Snider. Leonie Johnson, PGY-1
--- NOTE | 2018-04-21 13:17 | VASCLAB ---
Date of service: 04/19/2018 PROCEDURE: Lower Extremity Venous Duplex Exam. HISTORY: b/l le edema/ r/o dvt PRIORS: None. TECHNIQUE: Bilateral common femoral, femoral, popliteal and posterior tibial, peroneal and great saphenous veins were evaluated. Flow was assessed with color Doppler, compressibility, assessment of phasic flow and augmentation response. Report prepared by Blaze Escamilla, T FINDINGS: RIGHT: 1. Common Femoral Vein: 1.1. Compressibility - Fully compressible: Thrombus - None : Flow - Phasic: Augmentation -Normal: Reflux - . 2. Femoral Vein: 2.1. Compressibility - Fully compressible: Thrombus - None : Flow - Phasic: Augmentation -Normal: Reflux - . 3. Popliteal Vein: 3.1. Compressibility - Fully compressible: Thrombus - None : Flow - Phasic: Augmentation -Normal: Reflux - . 4. Posterior Tibial Vein: 4.1. Compressibility - Fully compressible: Thrombus - None: Flow - Phasic: Augmentation -Normal: Reflux - . 5. Peroneal Vein: 5.1. Compressibility - Fully compressible: Thrombus - None: Flow - Phasic: Augmentation -Normal: Reflux - . 6. Great Saphenous Vein: 6.1. Compressibility - Fully compressible: Thrombus - None: Flow - Phasic: Augmentation - Normal: Reflux - . LEFT: 1. Common Femoral Vein: 1.1. Compressibility - Fully compressible: Thrombus - None: Flow - Phasic: Augmentation -Normal: Reflux - . 2. Femoral Vein: 2.1. Compressibility - Fully compressible: Thrombus - None: Flow - Phasic: Augmentation -Normal: Reflux - . 3. Popliteal Vein: 3.1. Compressibility - Fully compressible: Thrombus - None : Flow - Phasic: Augmentation -Normal: Reflux - . 4. Posterior Tibial Vein: 4.1. Compressibility - Fully compressible: Thrombus - None: Flow - Phasic: Augmentation -Normal: Reflux - . 5. Peroneal Vein: 5.1. Compressibility - Fully compressible: Thrombus - None: Flow - Phasic: Augmentation -Normal: Reflux - . 6. Great Saphenous Vein: 6.1. Compressibility - Fully compressible: Thrombus - None: Flow - Phasic: Augmentation - Normal: Reflux - . OTHER FINDINGS: Right: None significant. Left: None significant. IMPRESSION: Right: No evidence of deep or superficial vein thrombosis of the right lower extremity. Left: No evidence of deep or superficial vein thrombosis of the left lower extremity.
--- NOTE | 2018-04-21 15:05 | CP.PCM.CON ---
History of Present Illness - History of Present Illness History of Present Illness: General Surgery consult note for Dr. Rajan (covering for Dr. Slater) Reason for Consult: Tracheostomy and PEG tube placement Patient is a 43 year old with PMH of substance abuse who presented to the ED with was found unresponsive in his car due to drug overdose. [facility] was called upon arrrival and patient was taken to cardiac cath where there was no acute occlusion, only vasopasm. Patient is is intubated and on mechanical ventiliation since 04/13/18. He also has a suspected anoxic brain injury. Patient is full code. Surgery was consulted for tracheostomy and PEG tub placement. Unable to obtain ROS due to his clinical condition. PMH: substance abuse PSH: unknown ALL: NKDA Review of Systems - Review of Systems All systems: reviewed and no additional remarkable complaints except (as per HPI) Review of Systems: See HPI Past Patient History - Past Medical History & Family History Past Medical History?: Yes - Past Social History Smoking Status: Unknown If Ever Smoked - CARDIAC Hx Pacemaker: No - PULMONARY Hx Sleep Apnea: Yes (USES BIPAP) - NEUROLOGICAL Hx Neurological Disorder: No - HEENT Hx HEENT Problems: No - RENAL Hx Chronic Kidney Disease: No - ENDOCRINE/METABOLIC Hx Endocrine Disorders: Yes Hx Hypothyroidism: Yes - HEMATOLOGICAL/ONCOLOGICAL Hx Cancer: No - INTEGUMENTARY Hx Dermatological Problems: No - MUSCULOSKELETAL/RHEUMATOLOGICAL Hx Musculoskeletal Disorders: No Hx Falls: No - GASTROINTESTINAL Hx Gastrointestinal Disorders: No - GENITOURINARY/GYNECOLOGICAL Hx Genitourinary Disorders: No - PSYCHIATRIC Hx Substance Use: No - SURGICAL HISTORY Hx Mastectomy: No - ANESTHESIA Hx Anesthesia: No Hx Anesthesia Reactions: No Hx Malignant Hyperthermia: No Has any member of the family had a problem w/ anesthesia?: No Meds Allergies/Adverse Reactions: Allergies Allergy/AdvReac Type Severity Reaction Status Date / Time No Known Allergies Allergy Unverified 04/13/18 10:42 - Medications Medications: Current Medications Acetaminophen (Tylenol 650mg/20.3ml Solution Ud) 650 mg PO Q6 PRN PRN Reason: Temperaure >100.4 Last Admin: 04/21/18 09:05 Dose: 650 mg Aspirin (Aspirin Chewable) 81 mg PO DAILY [facility] Last Admin: 04/21/18 09:06 Dose: 81 mg Heparin Sodium (Porcine) (Heparin) 5,000 units SC Q8 [facility] Last Admin: 04/21/18 13:28 Dose: 5,000 units Piperacillin Sod/Tazobactam (Sod 3.375 gm/ Sodium Chloride) 100 mls @ 200 mls/hr IVPB Q8H [facility]; Protocol Last Admin: 04/21/18 05:15 Dose: 200 mls/hr Levetiracetam 1,500 mg/ (Dextrose) 115 mls @ 420 mls/hr IVPB Q12H [facility] Last Admin: 04/21/18 13:29 Dose: 420 mls/hr Propofol (Diprivan) 1,000 mg in 100 mls @ 2.735 mls/hr IV .Q24H PRN; Protocol PRN Reason: TITRATE PER MD ORDER Last Titration: 04/21/18 13:27 Dose: 10 mcg/kg/min, 5.47 mls/hr Sodium Chloride (Sodium Chloride 0.9%) 1,000 mls @ 50 mls/hr IV .Q20H [facility] Last Admin: 04/21/18 02:35 Dose: Not Given Valproate Sodium 1,000 mg/ (Sodium Chloride) 110 mls @ 100 mls/hr IVPB Q12H [facility] Last Admin: 04/21/18 05:45 Dose: 100 mls/hr Lacosamide 100 mg/ Sodium (Chloride) 60 mls @ 100 mls/hr IVPB Q12H [facility] Last Admin: 04/21/18 09:01 Dose: 100 mls/hr Midazolam HCl 100 mg/ Sodium (Chloride) 100 mls @ 0.92 mls/hr IV .Q24H [facility]; Protocol Last Titration: 04/21/18 09:30 Dose: 0.02 mg/kg/hr, 2 mls/hr Vancomycin/Sodium Chloride (Vancomycin 1 Gm/Ns 200 Ml) 1 gm in 200 mls @ 133 mls/hr IVPB Q24H [facility]; Protocol Stop: 04/25/18 09:01 Last Admin: 04/21/18 10:09 Dose: 133 mls/hr Insulin Aspart (Novolog) 0 unit SC Q6 [facility]; Protocol Last Admin: 04/21/18 12:39 Dose: Not Given Levothyroxine Sodium (Synthroid) 75 mcg PO DAILY@0630 [facility] Last Admin: 04/21/18 05:40 Dose: 75 mcg Lorazepam (Ativan) 1 mg IVP Q4H PRN PRN Reason: Seizure activity Last Admin: 04/21/18 01:20 Dose: 1 mg Pantoprazole Sodium (Protonix Susp) 40 mg GT DAILY [facility] Last Admin: 04/21/18 09:05 Dose: 40 mg Rosuvastatin Calcium (Crestor) 5 mg PO HS [facility] Last Admin: 04/20/18 21:00 Dose: 5 mg Physical Exam - Constitutional Appears: No Acute Distress, Chronically Ill Additional comments: sedated - Head Exam Head Exam: ATRAUMATIC, NORMOCEPHALIC - Eye Exam Eye Exam: Normal appearance Pupil Exam: PERRL - ENT Exam ENT Exam: Mucous Membranes Moist - Respiratory Exam Additional comments: Intubated and mechanical ventilation. 500/18/50%/5 - Cardiovascular Exam Cardiovascular Exam: REGULAR RHYTHM - GI/Abdominal Exam GI & Abdominal Exam: Soft. absent: Guarding, Rebound, Rigid, Tenderness - Extremities Exam Extremities exam: Positive for: normal capillary refill Additional comments: upper/lower extremity edema - Neurological Exam Neurological exam: Altered Additional comments: GCS 6T (E1,V1,M4) - Psychiatric Exam Psychiatric exam: Flat Affect - Skin Skin Exam: Dry, Warm Results - Vital Signs Recent Vital Signs: Last Vital Signs Temp 98.4 F 04/21/18 12:00 Pulse 107 H 04/21/18 14:00 Resp 29 H 04/21/18 14:00 BP 112/88 04/21/18 14:00 Pulse Ox 98 04/21/18 14:00 - Labs Result Diagrams: 04/21/18 05:59 04/21/18 05:59 Labs: Laboratory Results - last 24 hr 04/21/18 04/21/18 04/21/18 05:30 05:59 05:59 WBC 11.8 H RBC 3.95 L Hgb 12.4 Hct 37.2 MCV 94.0 MCH 31.3 H MCHC 33.3 RDW 12.6 Plt Count 152 MPV 8.0 Neut % (Auto) 83.2 H Lymph % (Auto) 7.7 L [place] % (Auto) 6.0 Eos % (Auto) 2.9 Baso % (Auto) 0.2 Neut # (Auto) 9.8 H Lymph # (Auto) 0.9 L [place] # (Auto) 0.7 Eos # (Auto) 0.3 Baso # (Auto) 0.0 Neutrophils % (Manual) 86 H Band Neutrophils % 1 Lymphocytes % (Manual) 6 L Monocytes % (Manual) 5 Eosinophils % (Manual) 2 Platelet Estimate Normal Puncture Site Rradial pCO2 30 L pO2 80 HCO3 26.1 ABG pH 7.51 H ABG Total CO2 24.8 ABG O2 Saturation 98.2 H ABG Base Excess 1.6 ABG Hemoglobin 12.3 ABG Carboxyhemoglobin 1.4 POC ABG HHb (Measured) 1.8 ABG Methemoglobin 0.9 Jose Test Pos A-a O2 Difference 310.0 Respiratory Index 3.9 Hgb O2 Saturation 95.9 Vent Mode Prvc Mechanical Rate 18 FiO2 60.0 Tidal Volume 500 PEEP 5 Sodium 135 Potassium 3.8 Chloride 105 Carbon Dioxide 25 Anion Gap 9 L BUN 20 Creatinine 0.8 Est GFR ( Amer) > 60 Est GFR (Non-Af Amer) > 60 Random Glucose 131 H Calcium 8.3 L Phosphorus 2.7 Magnesium 2.2 Total Bilirubin 0.3 AST 67 H D ALT 38 Alkaline Phosphatase 104 Total Protein 5.6 L Albumin 2.9 L Globulin 2.6 Albumin/Globulin Ratio 1.1 Procalcitonin 04/21/18 08:37 WBC RBC Hgb Hct MCV MCH MCHC RDW Plt Count MPV Neut % (Auto) Lymph % (Auto) [place] % (Auto) Eos % (Auto) Baso % (Auto) Neut # (Auto) Lymph # (Auto) [place] # (Auto) Eos # (Auto) Baso # (Auto) Neutrophils % (Manual) Band Neutrophils % Lymphocytes % (Manual) Monocytes % (Manual) Eosinophils % (Manual) Platelet Estimate Puncture Site pCO2 pO2 HCO3 ABG pH ABG Total CO2 ABG O2 Saturation ABG Base Excess ABG Hemoglobin ABG Carboxyhemoglobin POC ABG HHb (Measured) ABG Methemoglobin Jose Test A-a O2 Difference Respiratory Index Hgb O2 Saturation Vent Mode Mechanical Rate FiO2 Tidal Volume PEEP Sodium Potassium Chloride Carbon Dioxide Anion Gap BUN Creatinine Est GFR ( Amer) Est GFR (Non-Af Amer) Random Glucose Calcium Phosphorus Magnesium Total Bilirubin AST ALT Alkaline Phosphatase Total Protein Albumin Globulin Albumin/Globulin Ratio Procalcitonin 0.22 Assessment & Plan - Assessment and Plan (Free Text) Assessment: 43 year old male with PMH of substance abuse found unresponsive s/p cardiac arrest with prolonged respiratory failure Plan: -Plan for Tracheostomy and PEG tube insertion possibly Sunday 04/23 -Medical optimization -Wean vent -Medical management as per ICU -Discussed with Dr. Satinder Harding PGY3 - Date & Time Date: 04/21/18 Time: 15:00
[2018-04-21] MEDS: Midazolam 50 mg/10 ml 100 MG in Sodium Chloride 0.9% 80 ML IV SCH (17:54)
--- NOTE | 2018-04-21 23:45 | CP.PCM.PN ---
Subjective - Date & Time of Evaluation Date of Evaluation: 04/21/18 Time of Evaluation: 16:10 - Subjective Subjective: Patient seen, examined. Unresponsive to commands Objective - Vital Signs/Intake and Output Vital Signs (last 24 hours): Temp Pulse Resp BP Pulse Ox 100.9 F H 92 H 23 120/71 97 04/21/18 08:00 04/21/18 08:00 04/21/18 08:00 04/21/18 08:00 04/21/18 08:00 Intake and Output: 04/21/18 04/21/18 06:59 18:59 Intake Total 1930.0 229.4 Output Total 830 135 Balance 1100.0 94.4 - Medications Medications: Current Medications Acetaminophen (Tylenol 325mg Tab) 650 mg NG Q6 PRN PRN Reason: Fever >100.4 F Aspirin (Aspirin Chewable) 81 mg PO DAILY [facility] Last Admin: 04/20/18 09:07 Dose: 81 mg Heparin Sodium (Porcine) (Heparin) 5,000 units SC Q8 [facility] Last Admin: 04/21/18 05:40 Dose: 5,000 units Piperacillin Sod/Tazobactam (Sod 3.375 gm/ Sodium Chloride) 100 mls @ 200 mls/hr IVPB Q8H [facility]; Protocol Last Admin: 04/21/18 05:15 Dose: 200 mls/hr Levetiracetam 1,500 mg/ (Dextrose) 115 mls @ 420 mls/hr IVPB Q12H [facility] Last Admin: 04/21/18 01:30 Dose: 420 mls/hr Propofol (Diprivan) 1,000 mg in 100 mls @ 2.735 mls/hr IV .Q24H PRN; Protocol PRN Reason: TITRATE PER MD ORDER Last Admin: 04/21/18 05:40 Dose: 20 mcg/kg/min, 10.941 mls/hr Sodium Chloride (Sodium Chloride 0.9%) 1,000 mls @ 50 mls/hr IV .Q20H [facility] Last Admin: 04/21/18 02:35 Dose: Not Given Valproate Sodium 1,000 mg/ (Sodium Chloride) 110 mls @ 100 mls/hr IVPB Q12H [facility] Last Admin: 04/21/18 05:45 Dose: 100 mls/hr Lacosamide 100 mg/ Sodium (Chloride) 60 mls @ 100 mls/hr IVPB Q12H [facility] Last Admin: 04/20/18 21:00 Dose: 100 mls/hr Midazolam HCl 100 mg/ Sodium (Chloride) 100 mls @ 0.92 mls/hr IV .Q24H [facility]; Protocol Last Admin: 04/20/18 21:00 Dose: 0.04 mg/kg/hr, 3.67 mls/hr Vancomycin/Sodium Chloride (Vancomycin 1 Gm/Ns 200 Ml) 1 gm in 200 mls @ 133 mls/hr IVPB Q24H [facility]; Protocol Stop: 04/25/18 09:01 Last Admin: 04/20/18 09:07 Dose: 133 mls/hr Insulin Aspart (Novolog) 0 unit SC Q6 [facility]; Protocol Last Admin: 04/21/18 06:00 Dose: Not Given Levothyroxine Sodium (Synthroid) 75 mcg PO DAILY@0630 [facility] Last Admin: 04/21/18 05:40 Dose: 75 mcg Lorazepam (Ativan) 1 mg IVP Q4H PRN PRN Reason: Seizure activity Last Admin: 04/21/18 01:20 Dose: 1 mg Pantoprazole Sodium (Protonix Susp) 40 mg GT DAILY [facility] Last Admin: 04/20/18 09:08 Dose: 40 mg Rosuvastatin Calcium (Crestor) 5 mg PO HS [facility] Last Admin: 04/20/18 21:00 Dose: 5 mg - Labs Labs: 04/21/18 05:59 04/21/18 05:59 PT 13.0 SECONDS (9.7-12.2) H 04/15/18 06:14 INR 1.2 04/15/18 06:14 APTT 28 SECONDS (21-34) 04/15/18 06:14 - Constitutional Appears: Non-toxic, No Acute Distress - Head Exam Head Exam: NORMAL INSPECTION - Eye Exam Eye Exam: absent: Nystagmus, Scleral icterus Pupil Exam: PERRL. absent: Fixed, Irregular - ENT Exam ENT Exam: Mucous Membranes Moist - Respiratory Exam Respiratory Exam: NORMAL BREATHING PATTERN. absent: Respiratory Distress - Cardiovascular Exam Cardiovascular Exam: REGULAR RHYTHM, +S1, +S2 Additional comments: noted crepitus over the ribs secondary to chest compressions - GI/Abdominal Exam GI & Abdominal Exam: Distended, Soft, Normal Bowel Sounds. absent: Firm, Guarding, Rigid, Tenderness, Rebound - Exam Additional comments: terry present - Extremities Exam Extremities Exam: absent: Pedal Edema, Tenderness - Neurological Exam Neurological Exam: Altered Additional comments: sedated - Skin Skin Exam: Dry, Normal Color, Warm Assessment and Plan (1) Cardiac arrest Status: Acute (2) Anoxic brain injury Status: Acute (3) STEMI (ST elevation myocardial infarction) Status: Acute (4) Leukocytosis Status: Acute (5) Transaminitis Status: Acute (6) Myoclonic jerking Status: Acute (7) Prophylactic measure Status: Acute Attending/Attestation 43 year old male who was admitted after cardiopulmonary arrest. Anoxic brain injury is suspected. He is currently intubated and on Keppra, Vimpat, Midazolam, Propofol and Valproic Acid. Hypothermic protocol was completed 04/15/18. Video EEG was completed and official read is pending. He is on Zosyn and Vancomycin for leukocytosis with Blood Culture 04/13/18 currently negative to date and Urine Cultures 04/13/18 and 04/14/18 showing NO growth. In light of the high fevers on 04/19/18, repeat Urine and Blood Cultures ordered. Neurology Dr. Snider is on board and has informed Son Jer and of poor prognosis during course of hospitalization. Patient's code status is presently Full Code. In review of prior notes, the ICU doctors have spoken with family extensively and is currently in the process of arranging transfer to [facility] as per the family's request Chest X Ray 04/19/18: Pulmonary vascular congestion and bilateral pleural effusions larger on the left, appropriate position of the support devices Follow up Chest X Ray from this morning 04/20/18 The following studies have been performed: EEG presently on going 1). Video EEG (04/18/18): This is an abnormal video EEG. Shows GPEDS, and BIPLEDs, indicative of severe anoxic injury. There are no seizures at this time. 2). CT Head (04/18/18): Probable diffuse hypoxic insult with diffuse cerebral edema and loss of pablo/white matter differentiation. NO evidence of herniation. NO focal vascular territorial infarct. Chronis pansinusitis. Mild nonspecific bilateral mastoid effusion. 3). EEG (04/15/18): This is an abnormal EEG record that demonstrate the presence of severe non specific diffuse disturbance of cortical activity, this is keeping with a diffuse pablo matter dysfunction, these findings are not specific. There were rhythmic muscle artifact seen, most likely mycolonus, this are usually seen in hypoxic brain insults, please correlate clinically. No seizures. Patient is not in status epilepticus 4). CT Head (04/15/18): Extensive diffuse homogeneous appearance of the brain parenchyma with loss of the cortico-medullary distinction and on diminution of cerebral sulci. Findings consistent with sequela diffuse hypoxia. 5). CT Head (04/14/18): Little interval change in mild diffuse effacement of cortical sulci and indistinct pablo-white matter differentiation related to hypo xic-anoxic insult with the stated clinical history. 6). CT Head (04/13/18): No acute intracranial hemorrhage. There is mild homogeneous appearance of the brain parenchyma with subtle indistinct appearance of the cortico-medullary junction. Findings could represent mild diffuse cerebral edema related to hypoxia however clinical correlation suggested. He is on the following medications: Lacosamide 100 mg IV Q12H Levetiracetam 1,5000 mg IV Q12H Midazolam 100 mg IV Q24H Propofol Drip Valproate 1,000 mg IV Q12H Zosyn 3.375 gm IV Q8H Vancomycin 1 gm IV Q24H Levothyroxine 75 mcg via OGT 1x/day Protonix 40 mg IV Q24H Heparin 5,000 Units SC Q8H Aspart ISS Q6H Jevity @ 50 ml/hr NS @ 50 ml/hr ROS is not possible due to patient unresponsiveness General: Intubated on vent with NGT, no jerking movements HEENT: Pupils are now dilated and sluggishly reactive to light, NO lymphadenopathy, NO thyromegaly Cardio: NS1 and NS2, NO M/R/G with tachycardia Resp: Breath sounds are clear today 04/19/18 GI: Central Obesity, BS are decreased in all 4 quadrants, Soft, no guarding Ext: Pulses are strong and equal upper and lower extremities, NO edema, Capillary refill is 2 seconds Neuro: exam is not possible, patient appears comatose Assessments: 1). Anoxic Brain Injury Status: Acute * neuro on board * keppra, versed, depakote, propofol, and prn ativan * noted imaging CT heads completed and 2nd eeg in progress at bedside 2). Acute Respiratory Failure Status: Acute * intubated and sedated 3). Cardiac Arrest Status: Acute * Cardiology on board * Normal coronaries per cath 4). Myoclonic Movements Status: Acute * keppra, versed, depakote, propofol, and prn ativan 5). Leukocytosis Status: Acute * Repeat blood cultures from 04/19/17: negative for 24 hours * Urine culture: no growth * on empiric Zosyn and Vancomycin * Add tylenol prn for fever * procalcitonin: 0.38 (04/13/18) * pending official report 04/18/18 venous doppler 6). Hx Hypothyroidism Status: Chronic * patient is on Synthroid 75mcg PO am 7) prophylactic measure * protonix 40mg gt daily * Heparin 5000unit subq 8H * Poor prognosis Objective - Vital Signs/Intake and Output Vital Signs (last 24 hours): Temp Pulse Resp BP Pulse Ox 101.1 F H 85 19 128/72 97 04/21/18 21:52 04/21/18 23:00 04/21/18 23:00 04/21/18 23:00 04/21/18 23:00 Intake and Output: 04/21/18 04/22/18 18:59 06:59 Intake Total 1829.4 465.0 Output Total 780 Balance 1049.4 465.0 - Medications Medications: Current Medications Acetaminophen (Tylenol 650mg/20.3ml Solution Ud) 650 mg PO Q6 PRN PRN Reason: Temperaure >100.4 Last Admin: 04/21/18 21:52 Dose: 650 mg Aspirin (Aspirin Chewable) 81 mg PO DAILY [facility] Last Admin: 04/21/18 09:06 Dose: 81 mg Heparin Sodium (Porcine) (Heparin) 5,000 units SC Q8 [facility] Last Admin: 04/21/18 21:53 Dose: 5,000 units Piperacillin Sod/Tazobactam (Sod 3.375 gm/ Sodium Chloride) 100 mls @ 200 mls/hr IVPB Q8H [facility]; Protocol Last Admin: 04/21/18 21:52 Dose: 200 mls/hr Levetiracetam 1,500 mg/ (Dextrose) 115 mls @ 420 mls/hr IVPB Q12H [facility] Last Admin: 04/21/18 13:29 Dose: 420 mls/hr Propofol (Diprivan) 1,000 mg in 100 mls @ 2.735 mls/hr IV .Q24H PRN; Protocol PRN Reason: TITRATE PER MD ORDER Last Admin: 04/21/18 21:53 Dose: 20 mcg/kg/min, 10.941 mls/hr Sodium Chloride (Sodium Chloride 0.9%) 1,000 mls @ 50 mls/hr IV .Q20H [facility] Last Admin: 04/21/18 21:52 Dose: 50 mls/hr Valproate Sodium 1,000 mg/ (Sodium Chloride) 110 mls @ 100 mls/hr IVPB Q12H [facility] Last Admin: 04/21/18 17:42 Dose: 100 mls/hr Lacosamide 100 mg/ Sodium (Chloride) 60 mls @ 100 mls/hr IVPB Q12H [facility] Last Admin: 04/21/18 20:41 Dose: 100 mls/hr Midazolam HCl 100 mg/ Sodium (Chloride) 100 mls @ 0.92 mls/hr IV .Q24H [facility]; Protocol Last Admin: 04/21/18 17:54 Dose: Not Given Vancomycin/Sodium Chloride (Vancomycin 1 Gm/Ns 200 Ml) 1 gm in 200 mls @ 133 mls/hr IVPB Q24H [facility]; Protocol Stop: 04/25/18 09:01 Last Admin: 04/21/18 10:09 Dose: 133 mls/hr Insulin Aspart (Novolog) 0 unit SC Q6 [facility]; Protocol Last Admin: 04/21/18 23:22 Dose: Not Given Levothyroxine Sodium (Synthroid) 75 mcg PO DAILY@0630 [facility] Last Admin: 04/21/18 05:40 Dose: 75 mcg Lorazepam (Ativan) 1 mg IVP Q4H PRN PRN Reason: Seizure activity Last Admin: 04/21/18 01:20 Dose: 1 mg Pantoprazole Sodium (Protonix Susp) 40 mg GT DAILY [facility] Last Admin: 04/21/18 09:05 Dose: 40 mg Rosuvastatin Calcium (Crestor) 5 mg PO HS [facility] Last Admin: 04/21/18 21:53 Dose: 5 mg - Labs Labs: 04/21/18 05:59 04/21/18 05:59 PT 13.0 SECONDS (9.7-12.2) H 04/15/18 06:14 INR 1.2 04/15/18 06:14 APTT 28 SECONDS (21-34) 04/15/18 06:14
[2018-04-22] MEDS: Piperacillin/Tazobact 3.375 GM in Sodium Chloride 100 ML IVPB SCH ×3 (05:24→21:21)
[2018-04-22] MEDS: Valproate 1,000 MG in Sodium Chloride 0.9% 100 ML IVPB SCH ×2 (05:25→17:29)
[2018-04-22] MEDS: (Novolog) Insulin Aspart, Recombinant 100 u/ml 10 ml vial SC SCH ×3 (05:46→18:54)
[2018-04-22 05:59] LABS: ABG ALLEN TEST PS; ARTERIAL BLOOD GAS HCO3 28.3 mmol/L (21-28); ARTERIAL BLOOD GAS O2 SAT 95.2 % (95-98); ARTERIAL BLOOD GAS PCO2 30 mm/Hg (35-45); ARTERIAL BLOOD GAS PH 7.55 (7.35-7.45); ARTERIAL BLOOD GAS PO2 59 mm/Hg (80-100); ARTERIAL BLOOD GAS TCO2 27.1 mmol/L (22-28)
[2018-04-22] MEDS: Levothyroxine 75 MCG TAB PO SCH (06:02)
[2018-04-22] MEDS: Acetaminophen 650mg/20.3ml solution UD PO PRN (06:02)
[2018-04-22] MEDS: Propofol 10 mg/ml 1,000 MG/100 ML VIAL IV PRN ×3 (06:17→21:22)
[2018-04-22 06:18] LABS: BASO % 0.1 % (0.0-2.0); EOS # 0.5 K/uL (0.0-0.7); HEMOGLOBIN 12.7 g/dL (12.0-18.0); LYMPH # 1.1 K/uL (1.0-4.3); LYMPH % 8.8 % (20.0-40.0); MEAN CELL VOLUME 93.7 fL (80.0-94.0); MEAN CORPUSCULAR HEMOGLOBIN 31.3 pg (27.0-31.0); MEAN CORPUSCULAR HGB CONC 33.4 g/dL (33.0-37.0); MEAN PLATELET VOLUME 8.6 fL (7.2-11.7); MONO # 0.8 K/uL (0.0-0.8); MONO % 6.2 % (0.0-10.0); NEUT % 80.9 % (50.0-75.0); PLATELET COUNT 173 K/uL (130-400); RBC 4.04 Mil/uL (4.40-5.90); RED CELL DISTRIBUTION WIDTH 13.2 % (11.5-14.5); WHITE BLOOD COUNT 12.4 K/uL (4.8-10.8)
[2018-04-22 06:34] LABS: ALB/GLOB RATIO 1.1 (1.0-2.1); ALBUMIN 3.2 g/dL (3.5-5.0); ALT/SGPT 34 U/L (21-72); AST/SGOT 66 U/L (17-59); BLOOD UREA NITROGEN 19 mg/dL (9-20); CALCIUM 8.6 mg/dl (8.6-10.4); GFR NON-AFRICAN AMERICAN > 60
--- NOTE | 2018-04-22 07:58 | CP.PCM.PN ---
Subjective - Date & Time of Evaluation Date of Evaluation: 04/22/18 Time of Evaluation: 07:55 - Subjective Subjective: General Surgery Progress Note Patient seen and examined at bedside. Patient is intubated and on mechanical ventilation since 04/13/18. Unable to obtain ROS due to his clinical condition. Febrile intermittently, treated with Tylenol. Objective - Vital Signs/Intake and Output Vital Signs (last 24 hours): Temp Pulse Resp BP Pulse Ox 100.2 F H 79 18 123/78 99 04/22/18 06:02 04/22/18 07:00 04/22/18 07:00 04/22/18 07:00 04/22/18 07:00 Intake and Output: 04/22/18 04/22/18 06:59 18:59 Intake Total 1245.0 61 Output Total 2950 Balance -1705.0 61 - Medications Medications: Current Medications Acetaminophen (Tylenol 650mg/20.3ml Solution Ud) 650 mg PO Q6 PRN PRN Reason: Temperaure >100.4 Last Admin: 04/22/18 06:02 Dose: 650 mg Aspirin (Aspirin Chewable) 81 mg PO DAILY [facility] Last Admin: 04/21/18 09:06 Dose: 81 mg Heparin Sodium (Porcine) (Heparin) 5,000 units SC Q8 [facility] Last Admin: 04/22/18 05:25 Dose: 5,000 units Piperacillin Sod/Tazobactam (Sod 3.375 gm/ Sodium Chloride) 100 mls @ 200 mls/hr IVPB Q8H [facility]; Protocol Last Admin: 04/22/18 05:24 Dose: 200 mls/hr Levetiracetam 1,500 mg/ (Dextrose) 115 mls @ 420 mls/hr IVPB Q12H [facility] Last Admin: 04/22/18 01:40 Dose: 420 mls/hr Propofol (Diprivan) 1,000 mg in 100 mls @ 2.735 mls/hr IV .Q24H PRN; Protocol PRN Reason: TITRATE PER MD ORDER Last Admin: 04/22/18 06:17 Dose: 20 mcg/kg/min, 10.941 mls/hr Sodium Chloride (Sodium Chloride 0.9%) 1,000 mls @ 50 mls/hr IV .Q20H [facility] Last Admin: 04/21/18 21:52 Dose: 50 mls/hr Valproate Sodium 1,000 mg/ (Sodium Chloride) 110 mls @ 100 mls/hr IVPB Q12H [facility] Last Admin: 04/22/18 05:25 Dose: 100 mls/hr Lacosamide 100 mg/ Sodium (Chloride) 60 mls @ 100 mls/hr IVPB Q12H [facility] Last Admin: 04/21/18 20:41 Dose: 100 mls/hr Midazolam HCl 100 mg/ Sodium (Chloride) 100 mls @ 0.92 mls/hr IV .Q24H [facility]; Protocol Last Titration: 04/22/18 04:00 Dose: Infused Vancomycin/Sodium Chloride (Vancomycin 1 Gm/Ns 200 Ml) 1 gm in 200 mls @ 133 mls/hr IVPB Q24H [facility]; Protocol Stop: 04/25/18 09:01 Last Admin: 04/21/18 10:09 Dose: 133 mls/hr Insulin Aspart (Novolog) 0 unit SC Q6 [facility]; Protocol Last Admin: 04/22/18 05:46 Dose: Not Given Levothyroxine Sodium (Synthroid) 75 mcg PO DAILY@0630 [facility] Last Admin: 04/22/18 06:02 Dose: 75 mcg Lorazepam (Ativan) 1 mg IVP Q4H PRN PRN Reason: Seizure activity Last Admin: 04/21/18 01:20 Dose: 1 mg Pantoprazole Sodium (Protonix Susp) 40 mg GT DAILY [facility] Last Admin: 04/21/18 09:05 Dose: 40 mg Rosuvastatin Calcium (Crestor) 5 mg PO HS [facility] Last Admin: 04/21/18 21:53 Dose: 5 mg - Labs Labs: 04/22/18 06:00 04/22/18 06:00 PT 13.0 SECONDS (9.7-12.2) H 04/15/18 06:14 INR 1.2 04/15/18 06:14 APTT 28 SECONDS (21-34) 04/15/18 06:14 - Constitutional Appears: No Acute Distress, Chronically Ill - Head Exam Head Exam: ATRAUMATIC, NORMOCEPHALIC - ENT Exam ENT Exam: Mucous Membranes Moist - Respiratory Exam Additional comments: Intubated and vented - Cardiovascular Exam Cardiovascular Exam: REGULAR RHYTHM - GI/Abdominal Exam GI & Abdominal Exam: Soft, Normal Bowel Sounds - Extremities Exam Additional comments: Upper and lower extremity edema - Neurological Exam Neurological Exam: absent: Alert, Awake Additional comments: GCS 4 [id number] - Skin Skin Exam: Dry Assessment and Plan - Assessment and Plan (Free Text) Assessment: 43 year old male with history of substance abuse found unresponsive status post cardiac arrest with prolonged respiratory failure Plan: Plan for tracheostomy tomorrow Medical management as per ICU team Antonio Levin, PGY1
[2018-04-22 08:09] LABS: BANDS 4 % (0-2); EOSINOPHIL 1 % (0-4); LYMPHOCYTE 11 % (20-40); MONOCYTE 4 % (0-10); NEUTROPHIL 80 % (50-75); PLATELET ESTIMATE NORMAL (NORMAL); TOTAL CELLS COUNTED 100
--- NOTE | 2018-04-22 08:32 | CP.CCUPN ---
<Naveen Robertson - Last Filed: 04/22/18 14:10> CCU Subjective - Physician Review Subjective (Free Text): ICU Progress Note for Dr. Kingsley Riddle 04/22/18 09:12 Pt seen and examined at bedside this am. Intubated and sedated. Unable to obtain HPI and ROS due to pt's current mental status. No acute events reported overnight. To go for Brain MRI today at [facility]. CCU Objective - Vital Signs / Intake & Output Vital Signs (Last 4 hours): Vital Signs Temp Pulse Resp BP Pulse Ox 04/22/18 07:00 79 18 123/78 99 04/22/18 06:02 100.2 F H 04/22/18 06:00 79 18 108/69 95 04/22/18 05:00 108 H 29 H 122/89 Intake and Output (Last 8hrs): Intake & Output 04/21/18 04/22/18 04/22/18 22:59 06:59 14:59 Intake Total 964.0 843.0 61 Output Total 250 2950 Balance 714.0 -2107.0 61 Weight 202 lb 4.8 oz Intake: IV 110 130 Intake, IV Amount 654.0 713.0 61 Left Antecubital 88 99 Right Arm PICC Distal 16.0 14.0 11 Port Right Arm PICC Proximal 550 600 50 Port Tube Feeding 200 Output: Urine 250 2950 Urethral (Terry) 250 2950 Other: # Bowel Movements 0 - Physical Exam Head: Positive for: Atraumatic, Normocephalic Pupils: Positive for: PERRL Extroacular Muscles: Positive for: EOMI Conjunctiva: Positive for: Normal Mouth: Positive for: Moist Mucous Membranes Neck: Negative for: JVD, Lymphadenopathy Respiratory/Chest: Positive for: Other (on ventilator). Negative for: Respiratory Distress, Accessory Muscle Use, Wheezes, Rhonchi Cardiovascular: Positive for: Normal S1, S2. Negative for: Murmurs, Rub, Gallop Abdomen: Positive for: Normal Bowel Sounds. Negative for: Tenderness, Distention, Mass/Organomegaly Upper Extremity: Positive for: Normal Inspection, NORMAL PULSES, Neurovascularly Intact, Capillary Refill < 2s. Negative for: Cyanosis, Edema Lower Extremity: Positive for: Normal Inspection, NORMAL PULSES, Neurovascularly Intact, Capillary Refill < 2 s. Negative for: Edema, Cyanosis Skin: Positive for: Warm, Dry, Rashes Psychiatric: Positive for: Other (intubated) - Medications Active Medications: Active Medications Generic Name Dose Route Start Last Admin Trade Name Freq PRN Reason Stop Dose Admin Acetaminophen 650 mg 04/21/18 08:58 04/22/18 06:02 Tylenol 650mg/20.3ml Solution Ud PO 650 mg Q6 PRN Administration Temperaure >100.4 Aspirin 81 mg 04/19/18 10:00 04/21/18 09:06 Aspirin Chewable PO 81 mg DAILY ROBERT Administration Heparin Sodium (Porcine) 5,000 units 04/14/18 14:00 04/22/18 05:25 Heparin SC 5,000 units Q8 ROBERT Administration Piperacillin Sod/Tazobactam 100 mls @ 200 mls/hr 04/13/18 14:15 04/22/18 05:24 Sod 3.375 gm/ Sodium Chloride IVPB 200 mls/hr Q8H ROBERT Administration Protocol Levetiracetam 1,500 mg/ 115 mls @ 420 mls/hr 04/13/18 14:30 04/22/18 01:40 Dextrose IVPB 420 mls/hr Q12H ROEBRT Administration Propofol 1,000 mg in 100 mls @ 2.735 mls/hr 04/13/18 22:57 04/22/18 06:17 Diprivan IV 20 mcg/kg/min .Q24H PRN 10.941 mls/hr TITRATE PER MD ORDER Administration Protocol 5 MCG/KG/MIN Sodium Chloride 1,000 mls @ 50 mls/hr 04/14/18 10:36 04/21/18 21:52 Sodium Chloride 0.9% IV 50 mls/hr .Q20H ROBERT Administration Valproate Sodium 1,000 mg/ 110 mls @ 100 mls/hr 04/15/18 18:00 04/22/18 05:25 Sodium Chloride IVPB 100 mls/hr Q12H ROBERT Administration Lacosamide 100 mg/ Sodium 60 mls @ 100 mls/hr 04/15/18 20:00 04/21/18 20:41 Chloride IVPB 100 mls/hr Q12H ROBERT Administration Midazolam HCl 100 mg/ Sodium 100 mls @ 0.92 mls/hr 04/19/18 13:45 04/22/18 04:00 Chloride IV Infused .Q24H ROBERT Titration Protocol 0.01 MG/KG/HR Vancomycin/Sodium Chloride 1 gm in 200 mls @ 133 mls/hr 04/20/18 09:00 04/21/18 10:09 Vancomycin 1 Gm/Ns 200 Ml IVPB 04/25/18 09:01 133 mls/hr Q24H ROBERT Administration Protocol Insulin Aspart 0 unit 04/17/18 00:00 04/22/18 05:46 Novolog SC Not Given Q6 ROBERT Protocol Levothyroxine Sodium 75 mcg 04/17/18 06:30 04/22/18 06:02 Synthroid PO 75 mcg DAILY@0630 ROBERT Administration Lorazepam 1 mg 04/17/18 17:30 04/21/18 01:20 Ativan IVP 1 mg Q4H PRN Administration Seizure activity Pantoprazole Sodium 40 mg 04/19/18 10:00 04/21/18 09:05 Protonix Susp GT 40 mg DAILY ROBERT Administration Rosuvastatin Calcium 5 mg 04/18/18 22:00 04/21/18 21:53 Crestor PO 5 mg HS ROBERT Administration - Patient Studies Lab Studies: Microbiology Studies 04/20/18 08:27 Urine Culture - Final Urine,Terry Gram Negative Mickey 04/19/18 08:30 Blood Culture - Preliminary Blood-Venous NO GROWTH AFTER 48 HOURS 04/19/18 08:00 Blood Culture - Preliminary Blood-Venous NO GROWTH AFTER 48 HOURS Lab Studies 04/22/18 04/22/18 04/22/18 Range/Units 06:00 06:00 05:28 WBC 12.4 H (4.8-10.8) K/uL RBC 4.04 L (4.40-5.90) Mil/uL Hgb 12.7 (12.0-18.0) g/dL Hct 37.9 (35.0-51.0) % MCV 93.7 (80.0-94.0) fL MCH 31.3 H (27.0-31.0) pg MCHC 33.4 (33.0-37.0) g/dL RDW 13.2 (11.5-14.5) % Plt Count 173 (130-400) K/uL MPV 8.6 (7.2-11.7) fL Neut % (Auto) 80.9 H (50.0-75.0) % Lymph % (Auto) 8.8 L (20.0-40.0) % [place] % (Auto) 6.2 (0.0-10.0) % Eos % (Auto) 4.0 (0.0-4.0) % Baso % (Auto) 0.1 (0.0-2.0) % Neut # (Auto) 10.0 H (1.8-7.0) K/uL Lymph # (Auto) 1.1 (1.0-4.3) K/uL [place] # (Auto) 0.8 (0.0-0.8) K/uL Eos # (Auto) 0.5 (0.0-0.7) K/uL Baso # (Auto) 0.0 (0.0-0.2) K/uL Neutrophils % (Manual) 80 H (50-75) % Band Neutrophils % 4 H (0-2) % Lymphocytes % (Manual) 11 L (20-40) % Monocytes % (Manual) 4 (0-10) % Eosinophils % (Manual) 1 (0-4) % Platelet Estimate Normal (NORMAL) RBC Morphology Normal Puncture Site L rad pCO2 30 L (35-45) mm/Hg pO2 59 L (80-100) mm/Hg HCO3 28.3 H (21-28) mmol/L ABG pH 7.55 H (7.35-7.45) ABG Total CO2 27.1 (22-28) mmol/L ABG O2 Saturation 95.2 (95-98) % ABG Base Excess 4.4 H (-2.0-3.0) mmol/L Jose Test Ps ABG Potassium 3.6 (3.6-5.2) mmol/L A-a O2 Difference 260.0 mm/Hg Respiratory Index 4.4 Sodium 135 139.0 (132-148) mmol/l Chloride 104 109.0 H (98-107) mmol/L Glucose 115 H (75-110) mg/dl Lactate 1.1 (0.7-2.1) mmol/L Vent Mode Prvc Mechanical Rate 18 FiO2 50.0 % Tidal Volume 500 PEEP 5 Potassium 3.7 (3.6-5.2) mmol/L Carbon Dioxide 28 (22-30) mmol/L Anion Gap 7 L (10-20) BUN 19 (9-20) mg/dL Creatinine 0.8 (0.8-1.5) mg/dL Est GFR ( Amer) > 60 Est GFR (Non-Af Amer) > 60 POC Glucose (mg/dL) (65-110) mg/dL Random Glucose 112 H (75-110) mg/dL Calcium 8.6 (8.6-10.4) mg/dl Phosphorus 3.1 (2.5-4.5) mg/dL Magnesium 2.1 (1.6-2.3) mg/dL Total Bilirubin 0.5 (0.2-1.3) mg/dL AST 66 H (17-59) U/L ALT 34 (21-72) U/L Alkaline Phosphatase 111 (38-126) U/L Total Protein 5.9 L (6.3-8.3) g/dL Albumin 3.2 L (3.5-5.0) g/dL Globulin 2.8 (2.2-3.9) gm/dL Albumin/Globulin Ratio 1.1 (1.0-2.1) Procalcitonin (0.19-0.49) NG/ML Arterial Blood Potassium 3.6 (3.6-5.2) mmol/L 04/21/18 04/21/18 04/21/18 Range/Units 18:11 08:37 05:59 WBC (4.8-10.8) K/uL RBC (4.40-5.90) Mil/uL Hgb (12.0-18.0) g/dL Hct (35.0-51.0) % MCV (80.0-94.0) fL MCH (27.0-31.0) pg MCHC (33.0-37.0) g/dL RDW (11.5-14.5) % Plt Count (130-400) K/uL MPV (7.2-11.7) fL Neut % (Auto) (50.0-75.0) % Lymph % (Auto) (20.0-40.0) % [place] % (Auto) (0.0-10.0) % Eos % (Auto) (0.0-4.0) % Baso % (Auto) (0.0-2.0) % Neut # (Auto) (1.8-7.0) K/uL Lymph # (Auto) (1.0-4.3) K/uL [place] # (Auto) (0.0-0.8) K/uL Eos # (Auto) (0.0-0.7) K/uL Baso # (Auto) (0.0-0.2) K/uL Neutrophils % (Manual) 86 H (50-75) % Band Neutrophils % 1 (0-2) % Lymphocytes % (Manual) 6 L (20-40) % Monocytes % (Manual) 5 (0-10) % Eosinophils % (Manual) 2 (0-4) % Platelet Estimate Normal (NORMAL) RBC Morphology Puncture Site pCO2 (35-45) mm/Hg pO2 (80-100) mm/Hg HCO3 (21-28) mmol/L ABG pH (7.35-7.45) ABG Total CO2 (22-28) mmol/L ABG O2 Saturation (95-98) % ABG Base Excess (-2.0-3.0) mmol/L Jose Test ABG Potassium (3.6-5.2) mmol/L A-a O2 Difference mm/Hg Respiratory Index Sodium (132-148) mmol/l Chloride (98-107) mmol/L Glucose (75-110) mg/dl Lactate (0.7-2.1) mmol/L Vent Mode Mechanical Rate FiO2 % Tidal Volume PEEP Potassium (3.6-5.2) mmol/L Carbon Dioxide (22-30) mmol/L Anion Gap (10-20) BUN (9-20) mg/dL Creatinine (0.8-1.5) mg/dL Est GFR ( Amer) Est GFR (Non-Af Amer) POC Glucose (mg/dL) 147 H (65-110) mg/dL Random Glucose (75-110) mg/dL Calcium (8.6-10.4) mg/dl Phosphorus (2.5-4.5) mg/dL Magnesium (1.6-2.3) mg/dL Total Bilirubin (0.2-1.3) mg/dL AST (17-59) U/L ALT (21-72) U/L Alkaline Phosphatase (38-126) U/L Total Protein (6.3-8.3) g/dL Albumin (3.5-5.0) g/dL Globulin (2.2-3.9) gm/dL Albumin/Globulin Ratio (1.0-2.1) Procalcitonin 0.22 (0.19-0.49) NG/ML Arterial Blood Potassium (3.6-5.2) mmol/L 04/21/18 04/20/18 Range/Units 05:35 23:41 WBC (4.8-10.8) K/uL RBC (4.40-5.90) Mil/uL Hgb (12.0-18.0) g/dL Hct (35.0-51.0) % MCV (80.0-94.0) fL MCH (27.0-31.0) pg MCHC (33.0-37.0) g/dL RDW (11.5-14.5) % Plt Count (130-400) K/uL MPV (7.2-11.7) fL Neut % (Auto) (50.0-75.0) % Lymph % (Auto) (20.0-40.0) % [place] % (Auto) (0.0-10.0) % Eos % (Auto) (0.0-4.0) % Baso % (Auto) (0.0-2.0) % Neut # (Auto) (1.8-7.0) K/uL Lymph # (Auto) (1.0-4.3) K/uL [place] # (Auto) (0.0-0.8) K/uL Eos # (Auto) (0.0-0.7) K/uL Baso # (Auto) (0.0-0.2) K/uL Neutrophils % (Manual) (50-75) % Band Neutrophils % (0-2) % Lymphocytes % (Manual) (20-40) % Monocytes % (Manual) (0-10) % Eosinophils % (Manual) (0-4) % Platelet Estimate (NORMAL) RBC Morphology Puncture Site pCO2 (35-45) mm/Hg pO2 (80-100) mm/Hg HCO3 (21-28) mmol/L ABG pH (7.35-7.45) ABG Total CO2 (22-28) mmol/L ABG O2 Saturation (95-98) % ABG Base Excess (-2.0-3.0) mmol/L Jose Test ABG Potassium (3.6-5.2) mmol/L A-a O2 Difference mm/Hg Respiratory Index Sodium (132-148) mmol/l Chloride (98-107) mmol/L Glucose (75-110) mg/dl Lactate (0.7-2.1) mmol/L Vent Mode Mechanical Rate FiO2 % Tidal Volume PEEP Potassium (3.6-5.2) mmol/L Carbon Dioxide (22-30) mmol/L Anion Gap (10-20) BUN (9-20) mg/dL Creatinine (0.8-1.5) mg/dL Est GFR ( Amer) Est GFR (Non-Af Amer) POC Glucose (mg/dL) 142 H 135 H (65-110) mg/dL Random Glucose (75-110) mg/dL Calcium (8.6-10.4) mg/dl Phosphorus (2.5-4.5) mg/dL Magnesium (1.6-2.3) mg/dL Total Bilirubin (0.2-1.3) mg/dL AST (17-59) U/L ALT (21-72) U/L Alkaline Phosphatase (38-126) U/L Total Protein (6.3-8.3) g/dL Albumin (3.5-5.0) g/dL Globulin (2.2-3.9) gm/dL Albumin/Globulin Ratio (1.0-2.1) Procalcitonin (0.19-0.49) NG/ML Arterial Blood Potassium (3.6-5.2) mmol/L Laboratory Results - last 24 hr 04/20/18 04/21/18 04/21/18 23:41 05:35 05:59 WBC RBC Hgb Hct MCV MCH MCHC RDW Plt Count MPV Neut % (Auto) Lymph % (Auto) [place] % (Auto) Eos % (Auto) Baso % (Auto) Neut # (Auto) Lymph # (Auto) [place] # (Auto) Eos # (Auto) Baso # (Auto) Neutrophils % (Manual) 86 H Band Neutrophils % 1 Lymphocytes % (Manual) 6 L Monocytes % (Manual) 5 Eosinophils % (Manual) 2 Platelet Estimate Normal RBC Morphology Puncture Site pCO2 pO2 HCO3 ABG pH ABG Total CO2 ABG O2 Saturation ABG Base Excess Jose Test ABG Potassium A-a O2 Difference Respiratory Index Sodium Chloride Glucose Lactate Vent Mode Mechanical Rate FiO2 Tidal Volume PEEP Potassium Carbon Dioxide Anion Gap BUN Creatinine Est GFR ( Amer) Est GFR (Non-Af Amer) POC Glucose (mg/dL) 135 H 142 H Random Glucose Calcium Phosphorus Magnesium Total Bilirubin AST ALT Alkaline Phosphatase Total Protein Albumin Globulin Albumin/Globulin Ratio Procalcitonin Arterial Blood Potassium 04/21/18 04/21/18 04/22/18 08:37 18:11 05:28 WBC RBC Hgb Hct MCV MCH MCHC RDW Plt Count MPV Neut % (Auto) Lymph % (Auto) [place] % (Auto) Eos % (Auto) Baso % (Auto) Neut # (Auto) Lymph # (Auto) [place] # (Auto) Eos # (Auto) Baso # (Auto) Neutrophils % (Manual) Band Neutrophils % Lymphocytes % (Manual) Monocytes % (Manual) Eosinophils % (Manual) Platelet Estimate RBC Morphology Puncture Site L rad pCO2 30 L pO2 59 L HCO3 28.3 H ABG pH 7.55 H ABG Total CO2 27.1 ABG O2 Saturation 95.2 ABG Base Excess 4.4 H Jose Test Ps ABG Potassium 3.6 A-a O2 Difference 260.0 Respiratory Index 4.4 Sodium 139.0 Chloride 109.0 H Glucose 115 H Lactate 1.1 Vent Mode Prvc Mechanical Rate 18 FiO2 50.0 Tidal Volume 500 PEEP 5 Potassium Carbon Dioxide Anion Gap BUN Creatinine Est GFR ( Amer) Est GFR (Non-Af Amer) POC Glucose (mg/dL) 147 H Random Glucose Calcium Phosphorus Magnesium Total Bilirubin AST ALT Alkaline Phosphatase Total Protein Albumin Globulin Albumin/Globulin Ratio Procalcitonin 0.22 Arterial Blood Potassium 3.6 04/22/18 04/22/18 06:00 06:00 WBC 12.4 H RBC 4.04 L Hgb 12.7 Hct 37.9 MCV 93.7 MCH 31.3 H MCHC 33.4 RDW 13.2 Plt Count 173 MPV 8.6 Neut % (Auto) 80.9 H Lymph % (Auto) 8.8 L [place] % (Auto) 6.2 Eos % (Auto) 4.0 Baso % (Auto) 0.1 Neut # (Auto) 10.0 H Lymph # (Auto) 1.1 [place] # (Auto) 0.8 Eos # (Auto) 0.5 Baso # (Auto) 0.0 Neutrophils % (Manual) 80 H Band Neutrophils % 4 H Lymphocytes % (Manual) 11 L Monocytes % (Manual) 4 Eosinophils % (Manual) 1 Platelet Estimate Normal RBC Morphology Normal Puncture Site pCO2 pO2 HCO3 ABG pH ABG Total CO2 ABG O2 Saturation ABG Base Excess Jose Test ABG Potassium A-a O2 Difference Respiratory Index Sodium 135 Chloride 104 Glucose Lactate Vent Mode Mechanical Rate FiO2 Tidal Volume PEEP Potassium 3.7 Carbon Dioxide 28 Anion Gap 7 L BUN 19 Creatinine 0.8 Est GFR ( Amer) > 60 Est GFR (Non-Af Amer) > 60 POC Glucose (mg/dL) Random Glucose 112 H Calcium 8.6 Phosphorus 3.1 Magnesium 2.1 Total Bilirubin 0.5 AST 66 H ALT 34 Alkaline Phosphatase 111 Total Protein 5.9 L Albumin 3.2 L Globulin 2.8 Albumin/Globulin Ratio 1.1 Procalcitonin Arterial Blood Potassium Radiology Impressions: Radiology Impressions Duplex Scan Lower Extremity Artery 04/18/18 16:44 IMPRESSION: Right: No evidence of deep or superficial vein thrombosis of the right lower extremity. Left: No evidence of deep or superficial vein thrombosis of the left lower extremity. Chest X-Ray 04/21/18 07:00 IMPRESSION: Worsening bibasilar airspace opacities and effusions. Fingerstick Blood Sugar Results: 147 Review of Systems - Review of Systems Systems not reviewed;Unavailable: Intubated Critical Care Progress Note - Nutrition Nutrition: Nutrition Category Date Time Status NPO Diet [DIET] Diets 04/13/18 Dinner Active Assessment/Plan - Assessment and Plan (Free Text) Assessment: 43 y o male with PMhx hypothyroidism, obesity, HLD, found unresponsive in parking lot in cardiac arrest, s/p ROSC. Cardiac cath demonstrated clean arteries, hypothermic protocol completed, monitoring neurologic status. Likely has poor prognosis. Pt was in status epilepticus on triple antiepileptic medication as per Neuro, titrated off Nimbex. Currently on Versed, Valproate, and Propofol. 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 Currently intubated. To have Brain MRI done at [facility] today. Requested transfer as per family for pt to [facility] denied 2/2 insurance/reimbursement. Plan: Neuro: -Intubated and sedated -On Versed and Propofol drips, Versed increased for seizure control -Nimbex titrated off -Video EEG results demonstrate no signs of status epilepticus -Lacosamide 100 mg IVPB q12h -Keppra 1500 mg q12h -Valproate 1 g q 12h -Ativan 1 mg q4h prn for agitation -Neuro consulted (Dr. Escobar), recs appreciated -CT on admission indicative of edema -Repeat CT: diffuse homogeneous appearance of brain parenchyma w/ loss of corticomedullary distinction -Repeat CT demonstrates minimal change from prior CTs -Repeat CT ordered for today, f/u results -F/u Brain MRI results Cardio: -Vitals stable -Clean coronary arteries -EF 65% -Cont to monitor Resp: -On ventilator -Settings 18/60/500/5 -Cont to monitor -Surgery (Dr. Rajan) consulted for trach placement, recs appreciated Renal: -BUN/Cr 19/0.8, wnl -IVF d/c'd GI: -Jevity 1.5 at rate of 20 ml/hr, goal to 50, increase by 5 -Stop free water flushes -Family interested in Peg tube placement Heme/ID: -H/H 12.7/37.9, stable -WBC 12.4, trending up -Urine terry cx 04/20 pos for gram neg mickey, f/u final sensitivities -?sepsis -Vanco/zosyn Endo: -Hx hypothyroidism TSH initial 0.06 C/w Synthroid 75 mcg daily Dispo: Family interested in Peg and trach placement. Will discuss goals of care after MRI results received. Pt seen, examined with, and plan discussed with Dr. Kingsley Riddle, attending physician. Naveen Robertson DO PGY-1, [employer] Pager #[phone] <Alfreda Riddle - Last Filed: 04/26/18 12:26> CCU Subjective - Physician Review Subjective (Free Text): Patient seen and examineded at bedside. Patient remains unresponsive. -above resident note reviewed and verified. -GOals of care to be discussed with family members CCU Objective - Vital Signs / Intake & Output Vital Signs (Last 4 hours): Vital Signs Temp Pulse Resp BP Pulse Ox 04/26/18 12:06 61 18 86/50 L 93 L 04/26/18 12:00 98.5 F 60 18 93 L 04/26/18 11:56 62 18 85/47 L 93 L 04/26/18 11:46 83/47 L 04/26/18 11:42 63 18 82/45 L 93 L 04/26/18 11:36 63 18 84/44 L 93 L 04/26/18 11:26 65 18 81/42 L 93 L 04/26/18 11:16 67 18 83/43 L 93 L 04/26/18 11:06 75 16 84/48 L 98 04/26/18 11:00 65 18 96 04/26/18 10:56 65 18 85/43 L 96 04/26/18 10:51 72 18 92/50 L 97 04/26/18 10:46 67 18 69/36 L 96 04/26/18 10:38 70 18 72/36 L 96 04/26/18 10:36 70 18 71/37 L 95 04/26/18 10:26 72 18 75/43 L 100 04/26/18 10:16 79 18 81/47 L 100 04/26/18 10:00 67 12 74/37 L 94 L 04/26/18 09:27 71 14 85/51 L 98 04/26/18 09:00 80/40 L Intake and Output (Last 8hrs): Intake & Output 04/25/18 04/26/18 04/26/18 22:59 06:59 14:59 Intake Total 976 099 0572 Output Total 420 500 0 Balance 190 404 4274 Weight 190 lb Intake: Intake, IV Amount 639 160 3683 Right Arm PICC Distal 200 Port Right Arm PICC Proximal 979 690 6604 Port Tube Feeding 400 450 250 Other 100 100 Output: Urine 420 500 0 Straight 500 0 Urethral (Terry) 420 - Medications Active Medications: Active Medications Generic Name Dose Route Start Last Admin Trade Name Freq PRN Reason Stop Dose Admin Acetaminophen 650 mg 04/21/18 08:58 04/22/18 06:02 Tylenol 650mg/20.3ml Solution Ud PO 650 mg Q6 PRN Administration Temperaure >100.4 Albumin Human 25 gm 04/26/18 10:15 Albumin Human 25% (12.5 Gm/50 Ml) IV 04/27/18 04:16 Q6H ROBERT Albuterol/Ipratropium 3 ml 04/25/18 12:00 04/26/18 11:12 Duoneb 3 Mg/0.5 Mg (3 Ml) Ud INH 3 ml RQ4 ROBERT Administration Aspirin 81 mg 04/19/18 10:00 04/26/18 09:28 Aspirin Chewable PO 81 mg DAILY ROBERT Administration Chlordiazepoxide 10 mg 04/26/18 08:59 Librium PO Q8 PRN Agitation Valproate Sodium 1,000 mg/ 110 mls @ 100 mls/hr 04/15/18 18:00 04/26/18 05:20 Sodium Chloride IVPB 100 mls/hr Q12H ROBERT Administration Lacosamide 100 mg/ Sodium 60 mls @ 100 mls/hr 04/15/18 20:00 04/26/18 08:13 Chloride IVPB 100 mls/hr Q12H ROBERT Administration Levetiracetam 1,500 mg/ 115 mls @ 420 mls/hr 04/25/18 17:30 04/26/18 04:46 Dextrose IVPB 420 mls/hr Q12H ROBERT Administration Insulin Aspart 0 unit 04/17/18 00:00 04/26/18 05:21 Novolog SC 2 unit Q6 ROBERT Administration Protocol Levothyroxine Sodium 75 mcg 04/17/18 06:30 04/26/18 05:32 Synthroid PO 75 mcg DAILY@0630 ROBERT Administration Methylprednisolone 40 mg 04/25/18 16:00 04/26/18 09:29 Solu-Medrol IVP 40 mg Q6H ROBERT Administration Pantoprazole Sodium 40 mg 04/19/18 10:00 04/26/18 09:28 Protonix Susp GT 40 mg DAILY ROBERT Administration Rosuvastatin Calcium 5 mg 04/18/18 22:00 04/25/18 21:33 Crestor PO 5 mg HS ROBERT Administration - Patient Studies Lab Studies: Lab Studies 04/26/18 04/26/18 04/26/18 Range/Units 05:54 05:54 05:14 WBC 16.8 H D (4.8-10.8) K/uL RBC 3.89 L (4.40-5.90) Mil/uL Hgb 12.4 (12.0-18.0) g/dL Hct 36.8 (35.0-51.0) % MCV 94.5 H (80.0-94.0) fL MCH 31.8 H (27.0-31.0) pg MCHC 33.6 (33.0-37.0) g/dL RDW 12.8 (11.5-14.5) % Plt Count 353 (130-400) K/uL MPV 8.3 (7.2-11.7) fL Neut % (Auto) 92.0 H (50.0-75.0) % Lymph % (Auto) 4.1 L (20.0-40.0) % [place] % (Auto) 3.6 (0.0-10.0) % Eos % (Auto) 0.0 (0.0-4.0) % Baso % (Auto) 0.3 (0.0-2.0) % Neut # (Auto) 15.4 H (1.8-7.0) K/uL Lymph # (Auto) 0.7 L (1.0-4.3) K/uL [place] # (Auto) 0.6 (0.0-0.8) K/uL Eos # (Auto) 0.0 (0.0-0.7) K/uL Baso # (Auto) 0.1 (0.0-0.2) K/uL Neutrophils % (Manual) 87 H (50-75) % Band Neutrophils % 3 H (0-2) % Lymphocytes % (Manual) 6 L (20-40) % Monocytes % (Manual) 4 (0-10) % Toxic Granulation Present Platelet Estimate Normal (NORMAL) Large Platelets Present Polychromasia Slight Anisocytosis (manual) Slight Puncture Site L rad pCO2 33 L (35-45) mm/Hg pO2 63 L (80-100) mm/Hg HCO3 26.0 (21-28) mmol/L ABG pH 7.48 H (7.35-7.45) ABG Total CO2 25.6 (22-28) mmol/L ABG O2 Saturation 95.0 (95-98) % ABG Base Excess 1.6 (-2.0-3.0) mmol/L ABG Hemoglobin 12.9 (11.7-17.4) g/dL ABG Carboxyhemoglobin 1.7 H (0.5-1.5) % POC ABG HHb (Measured) 4.9 (0.0-5.0) % ABG Methemoglobin 1.1 (0.0-3.0) % Jose Test Pos A-a O2 Difference 324.0 mm/Hg Respiratory Index 5.1 Hgb O2 Saturation 92.3 L (95.0-98.0) % Vent Mode Prvc Mechanical Rate 18 FiO2 60.0 % Tidal Volume 500 PEEP 5 Sodium 136 (132-148) mmol/L Potassium 4.3 (3.6-5.2) mmol/L Chloride 104 (98-107) mmol/L Carbon Dioxide 27 (22-30) mmol/L Anion Gap 9 L (10-20) BUN 34 H (9-20) mg/dL Creatinine 1.0 (0.8-1.5) mg/dL Est GFR ( Amer) > 60 Est GFR (Non-Af Amer) > 60 Random Glucose 143 H (75-110) mg/dL Calcium 9.3 (8.6-10.4) mg/dl Phosphorus 3.7 (2.5-4.5) mg/dL Magnesium 2.7 H (1.6-2.3) mg/dL Total Bilirubin 0.6 (0.2-1.3) mg/dL AST 62 H (17-59) U/L ALT 31 (21-72) U/L Alkaline Phosphatase 99 (38-126) U/L Total Protein 6.1 L (6.3-8.3) g/dL Albumin 3.2 L (3.5-5.0) g/dL Globulin 3.0 (2.2-3.9) gm/dL Albumin/Globulin Ratio 1.1 (1.0-2.1) Laboratory Results - last 24 hr 04/26/18 04/26/18 04/26/18 05:14 05:54 05:54 WBC 16.8 H D RBC 3.89 L Hgb 12.4 Hct 36.8 MCV 94.5 H MCH 31.8 H MCHC 33.6 RDW 12.8 Plt Count 353 MPV 8.3 Neut % (Auto) 92.0 H Lymph % (Auto) 4.1 L [place] % (Auto) 3.6 Eos % (Auto) 0.0 Baso % (Auto) 0.3 Neut # (Auto) 15.4 H Lymph # (Auto) 0.7 L [place] # (Auto) 0.6 Eos # (Auto) 0.0 Baso # (Auto) 0.1 Neutrophils % (Manual) 87 H Band Neutrophils % 3 H Lymphocytes % (Manual) 6 L Monocytes % (Manual) 4 Toxic Granulation Present Platelet Estimate Normal Large Platelets Present Polychromasia Slight Anisocytosis (manual) Slight Puncture Site L rad pCO2 33 L pO2 63 L HCO3 26.0 ABG pH 7.48 H ABG Total CO2 25.6 ABG O2 Saturation 95.0 ABG Base Excess 1.6 ABG Hemoglobin 12.9 ABG Carboxyhemoglobin 1.7 H POC ABG HHb (Measured) 4.9 ABG Methemoglobin 1.1 Jose Test Pos A-a O2 Difference 324.0 Respiratory Index 5.1 Hgb O2 Saturation 92.3 L Vent Mode Prvc Mechanical Rate 18 FiO2 60.0 Tidal Volume 500 PEEP 5 Sodium 136 Potassium 4.3 Chloride 104 Carbon Dioxide 27 Anion Gap 9 L BUN 34 H Creatinine 1.0 Est GFR ( Amer) > 60 Est GFR (Non-Af Amer) > 60 Random Glucose 143 H Calcium 9.3 Phosphorus 3.7 Magnesium 2.7 H Total Bilirubin 0.6 AST 62 H ALT 31 Alkaline Phosphatase 99 Total Protein 6.1 L Albumin 3.2 L Globulin 3.0 Albumin/Globulin Ratio 1.1 Radiology Impressions: Radiology Impressions Chest X-Ray 04/26/18 06:00 Impression: Lines and tubes in stable position. Moderate to severe venous congestion. Prominent patchy increased markings at the lung bases. Moderate left and small right pleural effusion. Cardiomegaly. Critical Care Progress Note - Nutrition Nutrition: Nutrition Category Date Time Status NPO Diet [DIET] Diets 04/13/18 Dinner Active Assessment/Plan - Date & Time Date: 04/22/18 Time: 19:00
[2018-04-22] MEDS: SODIUM CHLORIDE 0.9% IVPB SCH ×2 (08:34→20:41)
[2018-04-22] MEDS: LACOSAMIDE IVPB SCH ×2 (08:34→20:41)
--- NOTE | 2018-04-22 08:47 | RAD ---
Date of service: 04/22/2018 HISTORY: intubated COMPARISON: The whole FINDINGS: LUNGS: Right basal opacity more obscuring of right hemidiaphragm-interval increase right pleural effusion noted. Left pleural effusion smaller-some improved aeration left lung base. Endotracheal tube tip clavicle level similar in satisfactory. PLEURA: Pleural effusion changes as above. No pneumothorax. CARDIOVASCULAR: No aortic atherosclerotic calcification present. Normal cardiac size. Pulmonary venous congestion persist probably similar. Right PICC line tip cavoatrial junction as before. OSSEOUS STRUCTURES: No significant abnormalities. VISUALIZED UPPER ABDOMEN: Nasogastric tube courses over stomach tip beyond inferior image edge-inferred as appropriate. OTHER FINDINGS: None. IMPRESSION: Mixed changes. Worsening right pleural effusion no dense consolidation. Some minimal compressive atelectasis here probable. Interval improved aeration left lung base-interval decrease left pleural effusion. Other findings as above.
[2018-04-22] MEDS: Vancomycin 1 gm/NS 200 ml 1 GM/200 ML BAG IVPB SCH (09:10)
[2018-04-22] MEDS: Pantoprazole 40 mg Susp UD GT SCH (09:10)
--- NOTE | 2018-04-22 13:37 | CP.PCM.PN ---
Subjective - Date & Time of Evaluation Date of Evaluation: 04/22/18 Time of Evaluation: 13:36 - Subjective Subjective: Neuro Follow-Up: evaluated this afternoon in the ICU. Family present at bedside (pt's son and ). Pt had MRI Brain done this morning at [facility]. Pt remains intubated, on sedation (Propofol). Does not follow commands. Per son, pt was not accepted at [facility] for [facility]. Family decision about further treatment/management will depend on the MRI results per son's request. ROS unobtainable from pt 2/2 his current status. Objective - Vital Signs/Intake and Output Vital Signs (last 24 hours): Temp Pulse Resp BP Pulse Ox 99.1 F 88 21 116/70 95 04/22/18 08:00 04/22/18 10:00 04/22/18 10:00 04/22/18 10:00 04/22/18 10:00 Intake and Output: 04/22/18 04/22/18 06:59 18:59 Intake Total 1245.0 494.0 Output Total 2950 145 Balance -1705.0 349.0 - Medications Medications: Current Medications Acetaminophen (Tylenol 650mg/20.3ml Solution Ud) 650 mg PO Q6 PRN PRN Reason: Temperaure >100.4 Last Admin: 04/22/18 06:02 Dose: 650 mg Aspirin (Aspirin Chewable) 81 mg PO DAILY [facility] Last Admin: 04/22/18 09:10 Dose: 81 mg Furosemide (Lasix) 40 mg IVP ONCE ONE Stop: 04/22/18 13:46 Heparin Sodium (Porcine) (Heparin) 5,000 units SC Q8 [facility] Last Admin: 04/22/18 13:25 Dose: 5,000 units Piperacillin Sod/Tazobactam (Sod 3.375 gm/ Sodium Chloride) 100 mls @ 200 mls/hr IVPB Q8H [facility]; Protocol Last Admin: 04/22/18 13:31 Dose: 200 mls/hr Levetiracetam 1,500 mg/ (Dextrose) 115 mls @ 420 mls/hr IVPB Q12H [facility] Last Admin: 04/22/18 13:31 Dose: 420 mls/hr Propofol (Diprivan) 1,000 mg in 100 mls @ 2.735 mls/hr IV .Q24H PRN; Protocol PRN Reason: TITRATE PER MD ORDER Last Admin: 04/22/18 06:17 Dose: 20 mcg/kg/min, 10.941 mls/hr Valproate Sodium 1,000 mg/ (Sodium Chloride) 110 mls @ 100 mls/hr IVPB Q12H [facility] Last Admin: 04/22/18 05:25 Dose: 100 mls/hr Lacosamide 100 mg/ Sodium (Chloride) 60 mls @ 100 mls/hr IVPB Q12H [facility] Last Admin: 04/22/18 08:34 Dose: 100 mls/hr Vancomycin/Sodium Chloride (Vancomycin 1 Gm/Ns 200 Ml) 1 gm in 200 mls @ 133 mls/hr IVPB Q24H [facility]; Protocol Stop: 04/25/18 09:01 Last Admin: 04/22/18 09:10 Dose: 133 mls/hr Insulin Aspart (Novolog) 0 unit SC Q6 [facility]; Protocol Last Admin: 04/22/18 05:46 Dose: Not Given Levothyroxine Sodium (Synthroid) 75 mcg PO DAILY@0630 [facility] Last Admin: 04/22/18 06:02 Dose: 75 mcg Lorazepam (Ativan) 1 mg IVP Q4H PRN PRN Reason: Seizure activity Last Admin: 04/21/18 01:20 Dose: 1 mg Pantoprazole Sodium (Protonix Susp) 40 mg GT DAILY [facility] Last Admin: 04/22/18 09:10 Dose: 40 mg Rosuvastatin Calcium (Crestor) 5 mg PO HS [facility] Last Admin: 04/21/18 21:53 Dose: 5 mg - Labs Labs: 04/22/18 06:00 04/22/18 06:00 PT 13.0 SECONDS (9.7-12.2) H 04/15/18 06:14 INR 1.2 04/15/18 06:14 APTT 28 SECONDS (21-34) 04/15/18 06:14 - Constitutional Appears: Other (intubated, on sedation, does not follow commands) - Head Exam Head Exam: NORMAL INSPECTION, NORMOCEPHALIC - Eye Exam Eye Exam: PERRL, Scleral icterus Pupil Exam: NORMAL ACCOMODATION, PERRL Additional comments: Pupils both reactive to light; are equal at 3mm b/l No dolls eyes Unsure if corneals are present--attempted multiple times and pts eyes and forehead had 2-3 episodes of twitching. Per primary RN no corneals during her exam this morning. On my previous neuro exam corneals were not present. + scleral icterus noted today - ENT Exam ENT Exam: Mucous Membranes Moist (intubated) - Neck Exam Neck Exam: Normal Inspection - Respiratory Exam Respiratory Exam: absent: NORMAL BREATHING PATTERN (intubated) - Cardiovascular Exam Cardiovascular Exam: REGULAR RHYTHM - GI/Abdominal Exam GI & Abdominal Exam: Soft Additional comments: OGT in place - Extremities Exam Extremities Exam: absent: Full ROM Additional comments: Extremities flaccid; fall immediately to the bed when raised. Slight tone noted to LUE compared to RUE + pitting edema to extremities noted - Neurological Exam Neurological Exam: Altered Neuro motor strength exam: Left Upper Extremity: 0, Right Upper Extremity: 0, Left Lower Extremity: 0, Right Lower Extremity: 0 Additional comments: Pt is intubated, on sedation Does not follow commands Pupils both reactive to light; are equal at 3mm b/l No dolls eyes Unsure if corneals are present--attempted multiple times and pts eyes and forehead had 2-3 episodes of twitching. Per primary RN no corneals during her exam this morning. On my previous neuro exam corneals were not present No purposeful or non-purposeful movements noted Extremities flaccid today; slight tone noted to LUE No myoclonic movements noted today, though 2-3 episodes of twitching noted to eyes and forehead when assessing for corneal reflex. Minimal gag reflex Unable to elicit plantar reflex b/l Hyporeflexia b/l - Skin Skin Exam: Normal Color Assessment and Plan (1) Anoxic brain injury Assessment & Plan: Imaging reviewed: -Repeat VEEG (04/20/18-04/21/18): This was an abnormal video EEG, monitoring study, due to the presence of: 1-Severe background slowing/attenuation. No seizures, not in status epilepticus. The above mentioned findings are in keeping with a severe non specific diffuse disturbance of cortical activity. This is in keeping with a diffuse pablo matter dysfunction. The findings do not suggest a specific etiology. -CT Head (04/18/18): Probable diffuse hypoxic insult with diffuse cerebral edema and loss of pablo/white matter differentiation. No evidence of herniation. No focal vascular territorial infarct. Chronic pansinusitis. Mild nonspecific bilateral mastoid effusion. -EEG (04/15/18): This is an abnormal EEG record that demonstrate the presence of severe non specific diffuse disturbance of cortical activity, this is keeping with a diffuse pablo matter dysfunction, these findings are not specific. There were rhythmic muscle artifact seen, most likely mycolonus, this are usually seen in hypoxic brain insults, please correlate clinically. No seizures. Patient is not in status epilepticus -CT head (04/15/18): Extensive diffuse homogeneous appearance of the brain parenchyma with loss of the corticomedullary distinction and on diminution of cerebral sulci. Findings consistent with sequela diffuse hypoxia. -CT head (04/14/18): Little interval change in mild diffuse effacement of cortical sulci and indistinct pablo-white matter differentiation related to hypoxic-anoxic insult with the stated clinical history. -CT head (04/13/18): No acute intracranial hemorrhage. There is mild homogeneous appearance of the brain parenchyma with subtle indistinct appearance of the corticomedullary junction. Findings could represent mild diffuse cerebral edema related to hypoxia however clinical correlation suggested. -Pending MRI brain--was completed at [facility] today, results pending. -Continue Keppra, Valproic Acid, and Vimpat as ordered. Continue sedation per ICU orders. -For possible trach and peg this week pending the MRI results and pending family's final decision. -Continue ICU management. -Dr. Snider spoke with son and pt's at length last week and again yesterday regarding VEEG findings and poor prognosis. I have spoken with pt's son and multiple times, answered all questions and concerns. Per the son, the family is wait until after the MRI is resulted to decide on further treatment/ management. I also discussed with them the option of LTACH; they are willing to have further discussions about the dispo after the MRI is resulted. -Notify neuro if there is any acute change in pt's condition. Sharifa Pepper DNP, [employer] Discussed with Dr. Escobar Status: Acute
--- NOTE | 2018-04-22 17:15 | CP.PCM.PN ---
Subjective - Date & Time of Evaluation Date of Evaluation: 04/22/18 Time of Evaluation: 17:13 - Subjective Subjective: Hospitalist note: Patient evaluated this afternoon under ICU level of care. Family members present at bedside. MRI brain done this am Currently intubated and sedated - not able to follow commands As per prior documentation - transfer not accepted to [facility] Objective - Vital Signs/Intake and Output Vital Signs (last 24 hours): Temp Pulse Resp BP Pulse Ox 98.3 F 98 H 26 H 142/85 100 04/22/18 12:45 04/22/18 17:00 04/22/18 17:00 04/22/18 17:00 04/22/18 17:00 Intake and Output: 04/22/18 04/22/18 06:59 18:59 Intake Total 1245.0 1105.0 Output Total 2950 2040 Balance -1705.0 -935.0 - Medications Medications: Current Medications Acetaminophen (Tylenol 650mg/20.3ml Solution Ud) 650 mg PO Q6 PRN PRN Reason: Temperaure >100.4 Last Admin: 04/22/18 06:02 Dose: 650 mg Aspirin (Aspirin Chewable) 81 mg PO DAILY [facility] Last Admin: 04/22/18 09:10 Dose: 81 mg Heparin Sodium (Porcine) (Heparin) 5,000 units SC Q8 [facility] Last Admin: 04/22/18 13:25 Dose: 5,000 units Piperacillin Sod/Tazobactam (Sod 3.375 gm/ Sodium Chloride) 100 mls @ 200 mls/hr IVPB Q8H [facility]; Protocol Last Admin: 04/22/18 13:31 Dose: 200 mls/hr Levetiracetam 1,500 mg/ (Dextrose) 115 mls @ 420 mls/hr IVPB Q12H [facility] Last Admin: 04/22/18 13:31 Dose: 420 mls/hr Propofol (Diprivan) 1,000 mg in 100 mls @ 2.735 mls/hr IV .Q24H [facility]N; Protocol PRN Reason: TITRATE PER MD ORDER Last Titration: 04/22/18 16:25 Dose: 10 mcg/kg/min, 5.47 mls/hr Valproate Sodium 1,000 mg/ (Sodium Chloride) 110 mls @ 100 mls/hr IVPB Q12H [facility] Last Admin: 04/22/18 05:25 Dose: 100 mls/hr Lacosamide 100 mg/ Sodium (Chloride) 60 mls @ 100 mls/hr IVPB Q12H [facility] Last Admin: 04/22/18 08:34 Dose: 100 mls/hr Vancomycin/Sodium Chloride (Vancomycin 1 Gm/Ns 200 Ml) 1 gm in 200 mls @ 133 mls/hr IVPB Q24H [facility]; Protocol Stop: 04/25/18 09:01 Last Admin: 04/22/18 09:10 Dose: 133 mls/hr Insulin Aspart (Novolog) 0 unit SC Q6 [facility]; Protocol Last Admin: 04/22/18 14:06 Dose: Not Given Levothyroxine Sodium (Synthroid) 75 mcg PO DAILY@0630 [facility] Last Admin: 04/22/18 06:02 Dose: 75 mcg Lorazepam (Ativan) 1 mg IVP Q4H PRN PRN Reason: Seizure activity Last Admin: 04/21/18 01:20 Dose: 1 mg Pantoprazole Sodium (Protonix Susp) 40 mg GT DAILY [facility] Last Admin: 04/22/18 09:10 Dose: 40 mg Rosuvastatin Calcium (Crestor) 5 mg PO HS [facility] Last Admin: 04/21/18 21:53 Dose: 5 mg - Labs Labs: 04/22/18 06:00 04/22/18 06:00 PT 13.0 SECONDS (9.7-12.2) H 04/15/18 06:14 INR 1.2 04/15/18 06:14 APTT 28 SECONDS (21-34) 04/15/18 06:14 - Head Exam Head Exam: NORMAL INSPECTION - Eye Exam Eye Exam: PERRL - Respiratory Exam Additional comments: Intubated and sedated - Cardiovascular Exam Cardiovascular Exam: REGULAR RHYTHM, +S1, +S2 - GI/Abdominal Exam GI & Abdominal Exam: Soft - Extremities Exam Extremities Exam: Normal Inspection - Neurological Exam Additional comments: Pt is intubated, on sedation Does not follow commands Pupils both reactive to light; are equal at 3mm b/l No purposeful or non-purposeful movements noted Extremities flaccid today; slight tone noted to LUE No myoclonic movements noted today, though 2-3 episodes of twitching noted to eyes and forehead when assessing for corneal reflex. Minimal gag reflex Unable to elicit plantar reflex b/l Hyporeflexia b/l - Skin Skin Exam: Warm Assessment and Plan - Assessment and Plan (Free Text) Assessment: Anoxic brain injury Assessment & Plan: Imaging reviewed: -Repeat VEEG (04/20/18-04/21/18): This was an abnormal video EEG, monitoring study, due to the presence of: 1-Severe background slowing/attenuation. No seizures, not in status epilepticus. The above mentioned findings are in keeping with a severe non specific diffuse disturbance of cortical activity. This is in keeping with a diffuse pablo matter dysfunction. The findings do not suggest a specific etiology. -CT Head (04/18/18): Probable diffuse hypoxic insult with diffuse cerebral edema and loss of pablo/white matter differentiation. No evidence of herniation. No focal vascular territorial infarct. Chronic pansinusitis. Mild nonspecific bilateral mastoid effusion. -EEG (04/15/18): This is an abnormal EEG record that demonstrate the presence of severe non specific diffuse disturbance of cortical activity, this is keeping with a diffuse pablo matter dysfunction, these findings are not specific. There were rhythmic muscle artifact seen, most likely mycolonus, this are usually seen in hypoxic brain insults, please correlate clinically. No seizures. Patient is not in status epilepticus -CT head (04/15/18): Extensive diffuse homogeneous appearance of the brain parenchyma with loss of the corticomedullary distinction and on diminution of cerebral sulci. Findings consistent with sequela diffuse hypoxia. -CT head (04/14/18): Little interval change in mild diffuse effacement of cortical sulci and indistinct pablo-white matter differentiation related to hypoxic-anoxic insult with the stated clinical history. -CT head (04/13/18): No acute intracranial hemorrhage. There is mild homogeneous appearance of the brain parenchyma with subtle indistinct appearance of the corticomedullary junction. Findings could represent mild diffuse cerebral edema related to hypoxia however clinical correlation suggested. -Pending MRI brain--was completed at [facility] today, results pending. -Continue Keppra, Valproic Acid, and Vimpat as ordered. Continue sedation per ICU orders. -For possible trach and peg this week pending the MRI results and pending family's final decision. -Continue ICU management. -Neuro following -Overall poor prognosis Prophylactic measures -protonix 40mg gt daily -Heparin 5000unit q8h subQ
--- NOTE | 2018-04-22 19:13 | CP.PCM.CON ---
History of Present Illness - History of Present Illness History of Present Illness: ASked today to see pt for dysphagia. s/p anoxic brain damage, intubated, not responsive. Was DNR- now rescinded. Neuro, CT, MRI done. Review of Systems - Review of Systems Systems not reviewed;Unavailable: Intubated - Respiratory Respiratory: absent: Hemoptysis - Gastrointestinal Gastrointestinal: absent: Constipation, Hematemesis, Hematochezia, Melena - Genitourinary Genitourinary: absent: Hematuria - Musculoskeletal Musculoskeletal: absent: Arthralgias, Muscle Cramps - Integumentary Integumentary: absent: Jaundice - Neurological Neurological: Convulsions Past Patient History - Past Medical History & Family History Past Medical History?: Yes - Past Social History Smoking Status: Unknown If Ever Smoked - CARDIAC Hx Pacemaker: No - PULMONARY Hx Sleep Apnea: Yes (USES BIPAP) - NEUROLOGICAL Hx Neurological Disorder: No - HEENT Hx HEENT Problems: No - RENAL Hx Chronic Kidney Disease: No - ENDOCRINE/METABOLIC Hx Endocrine Disorders: Yes Hx Hypothyroidism: Yes - HEMATOLOGICAL/ONCOLOGICAL Hx Cancer: No - INTEGUMENTARY Hx Dermatological Problems: No - MUSCULOSKELETAL/RHEUMATOLOGICAL Hx Musculoskeletal Disorders: No Hx Falls: No - GASTROINTESTINAL Hx Gastrointestinal Disorders: No - GENITOURINARY/GYNECOLOGICAL Hx Genitourinary Disorders: No - PSYCHIATRIC Hx Substance Use: No - SURGICAL HISTORY Hx Mastectomy: No - ANESTHESIA Hx Anesthesia: No Hx Anesthesia Reactions: No Hx Malignant Hyperthermia: No Has any member of the family had a problem w/ anesthesia?: No Meds Allergies/Adverse Reactions: Allergies Allergy/AdvReac Type Severity Reaction Status Date / Time No Known Allergies Allergy Unverified 04/13/18 10:42 - Medications Medications: Current Medications Acetaminophen (Tylenol 650mg/20.3ml Solution Ud) 650 mg PO Q6 PRN PRN Reason: Temperaure >100.4 Last Admin: 04/22/18 06:02 Dose: 650 mg Aspirin (Aspirin Chewable) 81 mg PO DAILY [facility] Last Admin: 04/22/18 09:10 Dose: 81 mg Heparin Sodium (Porcine) (Heparin) 5,000 units SC Q8 [facility] Last Admin: 04/22/18 13:25 Dose: 5,000 units Piperacillin Sod/Tazobactam (Sod 3.375 gm/ Sodium Chloride) 100 mls @ 200 mls/hr IVPB Q8H [facility]; Protocol Last Admin: 04/22/18 13:31 Dose: 200 mls/hr Levetiracetam 1,500 mg/ (Dextrose) 115 mls @ 420 mls/hr IVPB Q12H [facility] Last Admin: 04/22/18 13:31 Dose: 420 mls/hr Propofol (Diprivan) 1,000 mg in 100 mls @ 2.735 mls/hr IV .Q24H [facility]; Protocol PRN Reason: TITRATE PER MD ORDER Last Titration: 04/22/18 17:46 Dose: 15 mcg/kg/min, 8.205 mls/hr Valproate Sodium 1,000 mg/ (Sodium Chloride) 110 mls @ 100 mls/hr IVPB Q12H [facility] Last Admin: 04/22/18 17:29 Dose: 100 mls/hr Lacosamide 100 mg/ Sodium (Chloride) 60 mls @ 100 mls/hr IVPB Q12H [facility] Last Admin: 04/22/18 08:34 Dose: 100 mls/hr Vancomycin/Sodium Chloride (Vancomycin 1 Gm/Ns 200 Ml) 1 gm in 200 mls @ 133 mls/hr IVPB Q24H [facility]; Protocol Stop: 04/25/18 09:01 Last Admin: 04/22/18 09:10 Dose: 133 mls/hr Insulin Aspart (Novolog) 0 unit SC Q6 [facility]; Protocol Last Admin: 04/22/18 18:54 Dose: Not Given Levothyroxine Sodium (Synthroid) 75 mcg PO DAILY@0630 [facility] Last Admin: 04/22/18 06:02 Dose: 75 mcg Lorazepam (Ativan) 1 mg IVP Q4H PRN PRN Reason: Seizure activity Last Admin: 04/21/18 01:20 Dose: 1 mg Pantoprazole Sodium (Protonix Susp) 40 mg GT DAILY [facility] Last Admin: 04/22/18 09:10 Dose: 40 mg Rosuvastatin Calcium (Crestor) 5 mg PO HS [facility] Last Admin: 04/21/18 21:53 Dose: 5 mg Physical Exam - Constitutional Appears: Confused (unresponsive) Additional comments: unresponsive - Respiratory Exam Respiratory Exam: Clear to Auscultation Bilateral - Cardiovascular Exam Cardiovascular Exam: RRR - GI/Abdominal Exam GI & Abdominal Exam: Normal Bowel Sounds. absent: Mass, Tenderness - Neurological Exam Additional comments: unresponsive. Results - Vital Signs Recent Vital Signs: Last Vital Signs Temp 99 F 04/22/18 16:00 Pulse 72 04/22/18 18:00 Resp 18 04/22/18 18:00 BP 129/82 04/22/18 18:00 Pulse Ox 100 04/22/18 18:00 - Labs Result Diagrams: 04/22/18 06:00 04/22/18 06:00 Labs: Laboratory Results - last 24 hr 04/22/18 04/22/18 04/22/18 05:28 06:00 06:00 WBC 12.4 H RBC 4.04 L Hgb 12.7 Hct 37.9 MCV 93.7 MCH 31.3 H MCHC 33.4 RDW 13.2 Plt Count 173 MPV 8.6 Neut % (Auto) 80.9 H Lymph % (Auto) 8.8 L [place] % (Auto) 6.2 Eos % (Auto) 4.0 Baso % (Auto) 0.1 Neut # (Auto) 10.0 H Lymph # (Auto) 1.1 [place] # (Auto) 0.8 Eos # (Auto) 0.5 Baso # (Auto) 0.0 Neutrophils % (Manual) 80 H Band Neutrophils % 4 H Lymphocytes % (Manual) 11 L Monocytes % (Manual) 4 Eosinophils % (Manual) 1 Platelet Estimate Normal RBC Morphology Normal Puncture Site L rad pCO2 30 L pO2 59 L HCO3 28.3 H ABG pH 7.55 H ABG Total CO2 27.1 ABG O2 Saturation 95.2 ABG Base Excess 4.4 H Jose Test Ps ABG Potassium 3.6 A-a O2 Difference 260.0 Respiratory Index 4.4 Sodium 139.0 135 Chloride 109.0 H 104 Glucose 115 H Lactate 1.1 Vent Mode Prvc Mechanical Rate 18 FiO2 50.0 Tidal Volume 500 PEEP 5 Potassium 3.7 Carbon Dioxide 28 Anion Gap 7 L BUN 19 Creatinine 0.8 Est GFR ( Amer) > 60 Est GFR (Non-Af Amer) > 60 Random Glucose 112 H Calcium 8.6 Phosphorus 3.1 Magnesium 2.1 Total Bilirubin 0.5 AST 66 H ALT 34 Alkaline Phosphatase 111 Total Protein 5.9 L Albumin 3.2 L Globulin 2.8 Albumin/Globulin Ratio 1.1 Arterial Blood Potassium 3.6 Assessment & Plan (1) Dysphagia Assessment and Plan: Anoxic brain injury. Prognosis is dismal. Consider PEG. Consider ethics evaluation. Much discussion with family. Status: Acute (2) Anoxic brain injury Status: Acute (3) Cardiac arrest Status: Acute (4) Leukocytosis Status: Acute (5) STEMI (ST elevation myocardial infarction) Status: Acute (6) Transaminitis Assessment and Plan: shock liver- improving Status: Acute
--- NOTE | 2018-04-22 23:53 | CP.PCM.PN ---
Subjective - Date & Time of Evaluation Date of Evaluation: 04/22/18 Time of Evaluation: 14:20 - Subjective Subjective: Patient seen and evaluated Intubated and in coma Poor prognosis Patient on ventilator No change in cinical status Objective - Constitutional Appears: No Acute Distress - Eye Exam Eye Exam: PERRL - Respiratory Exam Additional comments: intubated and sedated - Cardiovascular Exam Cardiovascular Exam: REGULAR RHYTHM - GI/Abdominal Exam GI & Abdominal Exam: Soft - Neurological Exam Additional comments: sedated - Skin Skin Exam: Warm Assessment and Plan - Assessment and Plan (Free Text) Assessment: -Repeat VEEG (04/20/18-04/21/18): This was an abnormal video EEG, monitoring study, due to the presence of: 1-Severe background slowing/attenuation. No seizures, not in status epilepticus. The above mentioned findings are in keeping with a severe non specific diffuse disturbance of cortical activity. This is in keeping with a diffuse pablo matter dysfunction. The findings do not suggest a specific etiology. -CT Head (04/18/18): Probable diffuse hypoxic insult with diffuse cerebral edema and loss of pablo/white matter differentiation. No evidence of herniation. No focal vascular territorial infarct. Chronic pansinusitis. Mild nonspecific bilateral mastoid effusion. -EEG (04/15/18): This is an abnormal EEG record that demonstrate the presence of severe non specific diffuse disturbance of cortical activity, this is keeping with a diffuse pablo matter dysfunction, these findings are not specific. There were rhythmic muscle artifact seen, most likely mycolonus, this are usually seen in hypoxic brain insults, please correlate clinically. No seizures. Patient is not in status epilepticus -CT head (04/15/18): Extensive diffuse homogeneous appearance of the brain parenchyma with loss of the corticomedullary distinction and on diminution of cerebral sulci. Findings consistent with sequela diffuse hypoxia. -CT head (04/14/18): Little interval change in mild diffuse effacement of cortical sulci and indistinct pablo-white matter differentiation related to hypoxic-anoxic insult with the stated clinical history. -CT head (04/13/18): No acute intracranial hemorrhage. There is mild homogeneous appearance of the brain parenchyma with subtle indistinct appearance of the corticomedullary junction. Findings could represent mild diffuse cerebral edema related to hypoxia however clinical correlation suggested. 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 Further clinical correlation advised. No definite lobar brain infarction identified. -Continue Keppra, Valproic Acid, and Vimpat as ordered. Continue sedation per ICU orders. -For possible trach and peg this week pending the MRI results and pending family's final decision. -Continue ICU management. -Neuro following -Overall poor prognosis Prophylactic measures -protonix 40mg gt daily -Heparin 5000unit q8h subQ Objective - Vital Signs/Intake and Output Vital Signs (last 24 hours): Temp Pulse Resp BP Pulse Ox 99 F 73 18 121/85 100 04/22/18 20:00 04/22/18 23:00 04/22/18 23:00 04/22/18 23:00 04/22/18 23:00 Intake and Output: 04/22/18 04/23/18 18:59 06:59 Intake Total 1252.3 282.2 Output Total 2250 Balance -997.7 282.2 - Medications Medications: Current Medications Acetaminophen (Tylenol 650mg/20.3ml Solution Ud) 650 mg PO Q6 PRN PRN Reason: Temperaure >100.4 Last Admin: 04/22/18 06:02 Dose: 650 mg Aspirin (Aspirin Chewable) 81 mg PO DAILY [facility] Last Admin: 04/22/18 09:10 Dose: 81 mg Heparin Sodium (Porcine) (Heparin) 5,000 units SC Q8 [facility] Last Admin: 04/22/18 21:21 Dose: 5,000 units Piperacillin Sod/Tazobactam (Sod 3.375 gm/ Sodium Chloride) 100 mls @ 200 mls/hr IVPB Q8H ROBERT; Protocol Last Admin: 04/22/18 21:21 Dose: 200 mls/hr Levetiracetam 1,500 mg/ (Dextrose) 115 mls @ 420 mls/hr IVPB Q12H [facility] Last Admin: 04/22/18 13:31 Dose: 420 mls/hr Propofol (Diprivan) 1,000 mg in 100 mls @ 2.735 mls/hr IV .Q24H PRN; Protocol PRN Reason: TITRATE PER MD ORDER Last Titration: 04/22/18 21:22 Dose: 20 mcg/kg/min, 10.941 mls/hr Valproate Sodium 1,000 mg/ (Sodium Chloride) 110 mls @ 100 mls/hr IVPB Q12H [facility]ERT Last Admin: 04/22/18 17:29 Dose: 100 mls/hr Lacosamide 100 mg/ Sodium (Chloride) 60 mls @ 100 mls/hr IVPB Q12H [facility] Last Admin: 04/22/18 20:41 Dose: 100 mls/hr Vancomycin/Sodium Chloride (Vancomycin 1 Gm/Ns 200 Ml) 1 gm in 200 mls @ 133 mls/hr IVPB Q24H ROBERT; Protocol Stop: 04/25/18 09:01 Last Admin: 04/22/18 09:10 Dose: 133 mls/hr Insulin Aspart (Novolog) 0 unit SC Q6 ROBERT; Protocol Last Admin: 04/22/18 18:54 Dose: Not Given Levothyroxine Sodium (Synthroid) 75 mcg PO DAILY@0630 [facility] Last Admin: 04/22/18 06:02 Dose: 75 mcg Lorazepam (Ativan) 1 mg IVP Q4H PRN PRN Reason: Seizure activity Last Admin: 04/21/18 01:20 Dose: 1 mg Pantoprazole Sodium (Protonix Susp) 40 mg GT DAILY [facility]ERT Last Admin: 04/22/18 09:10 Dose: 40 mg Rosuvastatin Calcium (Crestor) 5 mg PO HS [facility]ERT Last Admin: 04/22/18 21:21 Dose: 5 mg - Labs Labs: 04/22/18 06:00 04/22/18 06:00 PT 13.0 SECONDS (9.7-12.2) H 04/15/18 06:14 INR 1.2 04/15/18 06:14 APTT 28 SECONDS (21-34) 04/15/18 06:14
[2018-04-23] MEDS: (Novolog) Insulin Aspart, Recombinant 100 u/ml 10 ml vial SC SCH ×5 (00:43→23:47)
[2018-04-23 04:31] LABS: BASO % 0.4 % (0.0-2.0); EOS # 0.4 K/uL (0.0-0.7); EOS % 3.9 % (0.0-4.0); HEMOGLOBIN 12.6 g/dL (12.0-18.0); LYMPH # 1.1 K/uL (1.0-4.3); LYMPH % 9.9 % (20.0-40.0); MEAN CELL VOLUME 93.4 fL (80.0-94.0); MEAN CORPUSCULAR HEMOGLOBIN 31.2 pg (27.0-31.0); MEAN CORPUSCULAR HGB CONC 33.4 g/dL (33.0-37.0); MEAN PLATELET VOLUME 8.1 fL (7.2-11.7); MONO # 0.7 K/uL (0.0-0.8); NEUT % 79.8 % (50.0-75.0); PLATELET COUNT 205 K/uL (130-400); RBC 4.04 Mil/uL (4.40-5.90); RED CELL DISTRIBUTION WIDTH 12.5 % (11.5-14.5); WHITE BLOOD COUNT 11.3 K/uL (4.8-10.8)
[2018-04-23 04:33] LABS: INR 1.2; PROTHROMBIN TIME 13.1 SECONDS (9.7-12.2)
[2018-04-23 04:39] LABS: ALB/GLOB RATIO 1.1 (1.0-2.1); ALBUMIN 3.1 g/dL (3.5-5.0); ALT/SGPT 36 U/L (21-72); AST/SGOT 66 U/L (17-59); BLOOD UREA NITROGEN 20 mg/dL (9-20); CALCIUM 8.7 mg/dl (8.6-10.4); GFR NON-AFRICAN AMERICAN > 60
[2018-04-23] MEDS: Levothyroxine 75 MCG TAB PO SCH (05:36)
[2018-04-23] MEDS: Valproate 1,000 MG in Sodium Chloride 0.9% 100 ML IVPB SCH ×2 (05:37→17:40)
[2018-04-23] MEDS: Piperacillin/Tazobact 3.375 GM in Sodium Chloride 100 ML IVPB SCH (05:37)
[2018-04-23 05:42] LABS: ABG ALLEN TEST POS; ARTERIAL BLOOD GAS HCO3 27.9 mmol/L (21-28); ARTERIAL BLOOD GAS O2 SAT 99.6 % (95-98); ARTERIAL BLOOD GAS PCO2 32 mm/Hg (35-45); ARTERIAL BLOOD GAS PH 7.52 (7.35-7.45); ARTERIAL BLOOD GAS PO2 134 mm/Hg (80-100); ARTERIAL BLOOD GAS TCO2 27.1 mmol/L (22-28)
[2018-04-23] MEDS: Propofol 10 mg/ml 1,000 MG/100 ML VIAL IV PRN ×3 (05:42→21:54)
[2018-04-23 07:19] LABS: BANDS 2 % (0-2); EOSINOPHIL 4 % (0-4); LYMPHOCYTE 11 % (20-40); MONOCYTE 3 % (0-10); NEUTROPHIL 77 % (50-75); PLATELET ESTIMATE NORMAL (NORMAL); REACTIVE LYMPHOCYTES 3 % (0-0); TOTAL CELLS COUNTED 100
[2018-04-23] MEDS: Vancomycin 1 gm/NS 200 ml 1 GM/200 ML BAG IVPB SCH (09:09)
[2018-04-23] MEDS: SODIUM CHLORIDE 0.9% IVPB SCH ×2 (09:09→20:02)
[2018-04-23] MEDS: LACOSAMIDE IVPB SCH ×2 (09:09→20:02)
[2018-04-23] MEDS: Pantoprazole 40 mg Susp UD GT SCH (09:11)
--- NOTE | 2018-04-23 09:14 | CP.CCUPN ---
<Naveen Robertson - Last Filed: 04/23/18 15:36> CCU Subjective - Physician Review Subjective (Free Text): ICU Progress Note for Dr. Kidd 04/23/18 15:36 Pt seen and examined at bedside this am. Intubated and sedated. Unable to obtain HPI and ROS due to pt's current mental status. No acute events reported overnight. Brain MRI results obtained and discussed with family at bedside last evening. CCU Objective - Vital Signs / Intake & Output Vital Signs (Last 4 hours): Vital Signs Temp Pulse Resp BP Pulse Ox 04/23/18 08:00 99.1 F 96 H 28 H 143/90 100 04/23/18 07:00 88 27 H 145/94 H 99 04/23/18 06:01 99 H 106/85 97 04/23/18 06:00 101 H 98 Intake and Output (Last 8hrs): Intake & Output 04/22/18 04/23/18 04/23/18 22:59 06:59 14:59 Intake Total 573.1 488 22 Output Total 930 900 275 Balance -356.9 -412 -253 Weight 191 lb 8 oz Intake: IV 60 100 Intake, IV Amount 363.1 388 22 Right Arm PICC Distal 63.1 88 22 Port Right Arm PICC Proximal 300 300 Port Tube Feeding 150 Output: Urine 930 900 275 Urethral (Terry) 930 900 275 Other: # Bowel Movements 1 - Physical Exam Head: Positive for: Atraumatic, Normocephalic Pupils: Positive for: PERRL Extroacular Muscles: Positive for: EOMI Conjunctiva: Positive for: Normal Mouth: Positive for: Moist Mucous Membranes Neck: Negative for: JVD, Lymphadenopathy Respiratory/Chest: Positive for: Other (on ventilator). Negative for: Respiratory Distress, Accessory Muscle Use, Wheezes, Rhonchi Cardiovascular: Positive for: Normal S1, S2. Negative for: Murmurs, Rub, Gallop Abdomen: Positive for: Normal Bowel Sounds. Negative for: Tenderness, Distention, Mass/Organomegaly Upper Extremity: Positive for: Normal Inspection, NORMAL PULSES, Neurovascularly Intact, Capillary Refill < 2s. Negative for: Cyanosis, Edema Lower Extremity: Positive for: Normal Inspection, NORMAL PULSES, Neurovascularly Intact, Capillary Refill < 2 s. Negative for: Edema, Cyanosis Skin: Positive for: Warm, Dry, Rashes Psychiatric: Positive for: Other (intubated) - Medications Active Medications: Active Medications Generic Name Dose Route Start Last Admin Trade Name Freq PRN Reason Stop Dose Admin Acetaminophen 650 mg 04/21/18 08:58 04/22/18 06:02 Tylenol 650mg/20.3ml Solution Ud PO 650 mg Q6 PRN Administration Temperaure >100.4 Aspirin 81 mg 04/19/18 10:00 04/23/18 09:10 Aspirin Chewable PO 81 mg DAILY ROBERT Administration Heparin Sodium (Porcine) 5,000 units 04/14/18 14:00 04/23/18 05:37 Heparin SC 5,000 units Q8 ROBERT Administration Levetiracetam 1,500 mg/ 115 mls @ 420 mls/hr 04/13/18 14:30 04/23/18 02:46 Dextrose IVPB 420 mls/hr Q12H ROBERT Administration Propofol 1,000 mg in 100 mls @ 2.735 mls/hr 04/13/18 22:57 04/23/18 05:42 Diprivan IV 20 mcg/kg/min .Q24H PRN 10.941 mls/hr TITRATE PER MD ORDER Administration Protocol 5 MCG/KG/MIN Valproate Sodium 1,000 mg/ 110 mls @ 100 mls/hr 04/15/18 18:00 04/23/18 05:37 Sodium Chloride IVPB 100 mls/hr Q12H ROBERT Administration Lacosamide 100 mg/ Sodium 60 mls @ 100 mls/hr 04/15/18 20:00 04/23/18 09:09 Chloride IVPB 100 mls/hr Q12H ROBERT Administration Vancomycin/Sodium Chloride 1 gm in 200 mls @ 133 mls/hr 04/20/18 09:00 04/23/18 09:09 Vancomycin 1 Gm/Ns 200 Ml IVPB 04/25/18 09:01 133 mls/hr Q24H ROBERT Administration Protocol Insulin Aspart 0 unit 04/17/18 00:00 04/23/18 05:00 Novolog SC Not Given Q6 ROBERT Protocol Levothyroxine Sodium 75 mcg 04/17/18 06:30 04/23/18 05:36 Synthroid PO 75 mcg DAILY@0630 ROBERT Administration Lorazepam 1 mg 04/17/18 17:30 04/21/18 01:20 Ativan IVP 1 mg Q4H PRN Administration Seizure activity Pantoprazole Sodium 40 mg 04/19/18 10:00 04/23/18 09:11 Protonix Susp GT 40 mg DAILY ROBERT Administration Rosuvastatin Calcium 5 mg 04/18/18 22:00 04/22/18 21:21 Crestor PO 5 mg HS ROBERT Administration - Patient Studies Lab Studies: Microbiology Studies 04/19/18 08:30 Blood Culture - Preliminary Blood-Venous NO GROWTH AFTER 4 DAYS 04/19/18 08:00 Blood Culture - Preliminary Blood-Venous NO GROWTH AFTER 4 DAYS Lab Studies 04/23/18 04/23/18 04/23/18 Range/Units 05:34 04:20 04:20 WBC (4.8-10.8) K/uL RBC (4.40-5.90) Mil/uL Hgb (12.0-18.0) g/dL Hct (35.0-51.0) % MCV (80.0-94.0) fL MCH (27.0-31.0) pg MCHC (33.0-37.0) g/dL RDW (11.5-14.5) % Plt Count (130-400) K/uL MPV (7.2-11.7) fL Neut % (Auto) (50.0-75.0) % Lymph % (Auto) (20.0-40.0) % Childress % (Auto) (0.0-10.0) % Eos % (Auto) (0.0-4.0) % Baso % (Auto) (0.0-2.0) % Neut # (Auto) (1.8-7.0) K/uL Lymph # (Auto) (1.0-4.3) K/uL Childress # (Auto) (0.0-0.8) K/uL Eos # (Auto) (0.0-0.7) K/uL Baso # (Auto) (0.0-0.2) K/uL Neutrophils % (Manual) (50-75) % Band Neutrophils % (0-2) % Lymphocytes % (Manual) (20-40) % Reactive Lymphs % (0-0) % Monocytes % (Manual) (0-10) % Eosinophils % (Manual) (0-4) % Platelet Estimate (NORMAL) RBC Morphology PT 13.1 H (9.7-12.2) SECONDS INR 1.2 APTT 30 (21-34) SECONDS Puncture Site Lr pCO2 32 L (35-45) mm/Hg pO2 134 H (80-100) mm/Hg HCO3 27.9 (21-28) mmol/L ABG pH 7.52 H (7.35-7.45) ABG Total CO2 27.1 (22-28) mmol/L ABG O2 Saturation 99.6 H (95-98) % ABG Base Excess 3.7 H (-2.0-3.0) mmol/L Jose Test Pos ABG Potassium 3.7 (3.6-5.2) mmol/L A-a O2 Difference 325.0 mm/Hg Respiratory Index 2.4 Glucose 110 (75-110) mg/dl Lactate 1.0 (0.7-2.1) mmol/L Vent Mode Prvc Mechanical Rate 18 FiO2 70.0 % Tidal Volume 500 PEEP 5 Sodium 137.0 (132-148) mmol/L Potassium (3.6-5.2) mmol/L Chloride 108.0 H (98-107) mmol/L Carbon Dioxide (22-30) mmol/L Anion Gap (10-20) BUN (9-20) mg/dL Creatinine (0.8-1.5) mg/dL Est GFR ( Amer) Est GFR (Non-Af Amer) Random Glucose (75-110) mg/dL Calcium (8.6-10.4) mg/dl Phosphorus (2.5-4.5) mg/dL Magnesium (1.6-2.3) mg/dL Total Bilirubin (0.2-1.3) mg/dL AST (17-59) U/L ALT (21-72) U/L Alkaline Phosphatase (38-126) U/L Total Protein (6.3-8.3) g/dL Albumin (3.5-5.0) g/dL Globulin (2.2-3.9) gm/dL Albumin/Globulin Ratio (1.0-2.1) Arterial Blood Potassium 3.7 (3.6-5.2) mmol/L Valproic Acid 55.3 (50.0-100.0) ug/mL 04/23/18 04/23/18 Range/Units 04:20 04:20 WBC 11.3 H (4.8-10.8) K/uL RBC 4.04 L (4.40-5.90) Mil/uL Hgb 12.6 (12.0-18.0) g/dL Hct 37.7 (35.0-51.0) % MCV 93.4 (80.0-94.0) fL MCH 31.2 H (27.0-31.0) pg MCHC 33.4 (33.0-37.0) g/dL RDW 12.5 (11.5-14.5) % Plt Count 205 (130-400) K/uL MPV 8.1 (7.2-11.7) fL Neut % (Auto) 79.8 H (50.0-75.0) % Lymph % (Auto) 9.9 L (20.0-40.0) % Childress % (Auto) 6.0 (0.0-10.0) % Eos % (Auto) 3.9 (0.0-4.0) % Baso % (Auto) 0.4 (0.0-2.0) % Neut # (Auto) 9.0 H (1.8-7.0) K/uL Lymph # (Auto) 1.1 (1.0-4.3) K/uL Childress # (Auto) 0.7 (0.0-0.8) K/uL Eos # (Auto) 0.4 (0.0-0.7) K/uL Baso # (Auto) 0.0 (0.0-0.2) K/uL Neutrophils % (Manual) 77 H (50-75) % Band Neutrophils % 2 (0-2) % Lymphocytes % (Manual) 11 L (20-40) % Reactive Lymphs % 3 H (0-0) % Monocytes % (Manual) 3 (0-10) % Eosinophils % (Manual) 4 (0-4) % Platelet Estimate Normal (NORMAL) RBC Morphology Normal PT (9.7-12.2) SECONDS INR APTT (21-34) SECONDS Puncture Site pCO2 (35-45) mm/Hg pO2 (80-100) mm/Hg HCO3 (21-28) mmol/L ABG pH (7.35-7.45) ABG Total CO2 (22-28) mmol/L ABG O2 Saturation (95-98) % ABG Base Excess (-2.0-3.0) mmol/L Jose Test ABG Potassium (3.6-5.2) mmol/L A-a O2 Difference mm/Hg Respiratory Index Glucose (75-110) mg/dl Lactate (0.7-2.1) mmol/L Vent Mode Mechanical Rate FiO2 % Tidal Volume PEEP Sodium 137 (132-148) mmol/L Potassium 3.7 (3.6-5.2) mmol/L Chloride 105 (98-107) mmol/L Carbon Dioxide 26 (22-30) mmol/L Anion Gap 10 (10-20) BUN 20 (9-20) mg/dL Creatinine 0.8 (0.8-1.5) mg/dL Est GFR ( Amer) > 60 Est GFR (Non-Af Amer) > 60 Random Glucose 106 (75-110) mg/dL Calcium 8.7 (8.6-10.4) mg/dl Phosphorus 3.4 (2.5-4.5) mg/dL Magnesium 2.2 (1.6-2.3) mg/dL Total Bilirubin 0.8 (0.2-1.3) mg/dL AST 66 H (17-59) U/L ALT 36 (21-72) U/L Alkaline Phosphatase 105 (38-126) U/L Total Protein 6.1 L (6.3-8.3) g/dL Albumin 3.1 L (3.5-5.0) g/dL Globulin 2.9 (2.2-3.9) gm/dL Albumin/Globulin Ratio 1.1 (1.0-2.1) Arterial Blood Potassium (3.6-5.2) mmol/L Valproic Acid (50.0-100.0) ug/mL Laboratory Results - last 24 hr 04/23/18 04/23/18 04/23/18 04:20 04:20 04:20 WBC 11.3 H RBC 4.04 L Hgb 12.6 Hct 37.7 MCV 93.4 MCH 31.2 H MCHC 33.4 RDW 12.5 Plt Count 205 MPV 8.1 Neut % (Auto) 79.8 H Lymph % (Auto) 9.9 L Childress % (Auto) 6.0 Eos % (Auto) 3.9 Baso % (Auto) 0.4 Neut # (Auto) 9.0 H Lymph # (Auto) 1.1 Childress # (Auto) 0.7 Eos # (Auto) 0.4 Baso # (Auto) 0.0 Neutrophils % (Manual) 77 H Band Neutrophils % 2 Lymphocytes % (Manual) 11 L Reactive Lymphs % 3 H Monocytes % (Manual) 3 Eosinophils % (Manual) 4 Platelet Estimate Normal RBC Morphology Normal PT 13.1 H INR 1.2 APTT 30 Puncture Site pCO2 pO2 HCO3 ABG pH ABG Total CO2 ABG O2 Saturation ABG Base Excess Jose Test ABG Potassium A-a O2 Difference Respiratory Index Glucose Lactate Vent Mode Mechanical Rate FiO2 Tidal Volume PEEP Sodium 137 Potassium 3.7 Chloride 105 Carbon Dioxide 26 Anion Gap 10 BUN 20 Creatinine 0.8 Est GFR ( Amer) > 60 Est GFR (Non-Af Amer) > 60 Random Glucose 106 Calcium 8.7 Phosphorus 3.4 Magnesium 2.2 Total Bilirubin 0.8 AST 66 H ALT 36 Alkaline Phosphatase 105 Total Protein 6.1 L Albumin 3.1 L Globulin 2.9 Albumin/Globulin Ratio 1.1 Arterial Blood Potassium Valproic Acid 04/23/18 04/23/18 04:20 05:34 WBC RBC Hgb Hct MCV MCH MCHC RDW Plt Count MPV Neut % (Auto) Lymph % (Auto) Childress % (Auto) Eos % (Auto) Baso % (Auto) Neut # (Auto) Lymph # (Auto) Childress # (Auto) Eos # (Auto) Baso # (Auto) Neutrophils % (Manual) Band Neutrophils % Lymphocytes % (Manual) Reactive Lymphs % Monocytes % (Manual) Eosinophils % (Manual) Platelet Estimate RBC Morphology PT INR APTT Puncture Site Lr pCO2 32 L pO2 134 H HCO3 27.9 ABG pH 7.52 H ABG Total CO2 27.1 ABG O2 Saturation 99.6 H ABG Base Excess 3.7 H Jose Test Pos ABG Potassium 3.7 A-a O2 Difference 325.0 Respiratory Index 2.4 Glucose 110 Lactate 1.0 Vent Mode Prvc Mechanical Rate 18 FiO2 70.0 Tidal Volume 500 PEEP 5 Sodium 137.0 Potassium Chloride 108.0 H Carbon Dioxide Anion Gap BUN Creatinine Est GFR ( Amer) Est GFR (Non-Af Amer) Random Glucose Calcium Phosphorus Magnesium Total Bilirubin AST ALT Alkaline Phosphatase Total Protein Albumin Globulin Albumin/Globulin Ratio Arterial Blood Potassium 3.7 Valproic Acid 55.3 Radiology Impressions: Radiology Impressions Chest X-Ray 04/22/18 07:00 IMPRESSION: Mixed changes. Worsening right pleural effusion no dense consolidation. Some minimal compressive atelectasis here probable. Interval improved aeration left lung base-interval decrease left pleural effusion. Other findings as above. Fingerstick Blood Sugar Results: 114 Review of Systems - Review of Systems Systems not reviewed;Unavailable: Intubated Critical Care Progress Note - Nutrition Nutrition: Nutrition Category Date Time Status NPO Diet [DIET] Diets 04/13/18 Dinner Active Assessment/Plan - Assessment and Plan (Free Text) Assessment: 43 y o male with PMhx hypothyroidism, obesity, HLD, found unresponsive in parking lot in cardiac arrest, s/p ROSC. Cardiac cath demonstrated clean arteries, hypothermic protocol completed, monitoring neurologic status. Likely has poor prognosis. Pt was in status epilepticus on triple antiepileptic medication as per Neuro, titrated off Nimbex. Currently on Valproate and Propofol. 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 Currently intubated. Requested transfer as per family for pt to [facility] denied 2 insurance/reimbursement. Plan: Neuro: -Intubated and sedated -On Propofol drip -Nimbex titrated off -Video EEG results demonstrate no signs of status epilepticus -Lacosamide 100 mg IVPB q12h -Keppra 1500 mg q12h -Valproate 1 g q 12h -Ativan 1 mg q4h prn for agitation -Neuro consulted (Dr. 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 Further clinical correlation advised. No definite lobar brain infarction identified. Results of MRI discussed with family at bedside, family to decide whether to pursue aggressive measures of treatment further. Cardio: -Vitals stable -Clean coronary arteries -EF 65% -Cont to monitor Resp: -On ventilator -Settings 18/60/500/5 -Cont to monitor -Surgery (Dr. Rajan) consulted for trach placement, recs appreciated Renal: -BUN/Cr 20/0.8, wnl -IVF d/c'd GI: -Jevity 1.5 at rate of 20 ml/hr, goal to 50, increase by 5 -Stop free water flushes -GI (Dr. Alexander) consulted for Peg tube placement, recs appreciated Heme/ID: -H/H 12.6/37.7, stable -WBC 11.3, trending down -Urine terry cx 04/20 pos for gram neg andrew, f/u final sensitivities -?sepsis -Vanco/zosyn Endo: -Hx hypothyroidism TSH initial 0.06 C/w Synthroid 75 mcg daily Dispo: Results of MRI discussed with family at bedside, family to decide whether to further pursue aggressive measures of treatment. Pt seen, examined with, and plan discussed with Dr. Kidd, attending physician. Naveen Robertson DO PGY-1, [employer] Pager #[phone] <David Kidd - Last Filed: 04/23/18 18:09> CCU Objective - Vital Signs / Intake & Output Vital Signs (Last 4 hours): Vital Signs Temp Pulse Resp BP Pulse Ox 04/23/18 17:00 90 26 H 100 04/23/18 16:59 85 22 136/97 H 100 04/23/18 16:00 98.3 F 89 27 H 134/87 100 04/23/18 15:00 90 26 H 116/80 100 Intake and Output (Last 8hrs): Intake & Output 04/23/18 04/23/18 04/23/18 06:59 14:59 22:59 Intake Total 488 988 183 Output Total 900 625 175 Balance -412 363 8 Weight 191 lb 8 oz Intake: IV 100 100 Intake, IV Amount 388 488 33 Right Arm PICC Distal 88 88 33 Port Right Arm PICC Proximal 300 400 Port Tube Feeding 400 150 Output: Urine 900 625 175 Urethral (Terry) 900 625 175 - Medications Active Medications: Active Medications Generic Name Dose Route Start Last Admin Trade Name Freq PRN Reason Stop Dose Admin Acetaminophen 650 mg 04/21/18 08:58 04/22/18 06:02 Tylenol 650mg/20.3ml Solution Ud PO 650 mg Q6 PRN Administration Temperaure >100.4 Aspirin 81 mg 04/19/18 10:00 04/23/18 09:10 Aspirin Chewable PO 81 mg DAILY ROBERT Administration Heparin Sodium (Porcine) 5,000 units 04/14/18 14:00 04/23/18 14:12 Heparin SC 5,000 units Q8 ROBERT Administration Levetiracetam 1,500 mg/ 115 mls @ 420 mls/hr 04/13/18 14:30 04/23/18 14:12 Dextrose IVPB 420 mls/hr Q12H ROBERT Administration Propofol 1,000 mg in 100 mls @ 2.735 mls/hr 04/13/18 22:57 04/23/18 15:01 Diprivan IV 20 mcg/kg/min .Q24H PRN 10.941 mls/hr TITRATE PER MD ORDER Administration Protocol 5 MCG/KG/MIN Valproate Sodium 1,000 mg/ 110 mls @ 100 mls/hr 04/15/18 18:00 04/23/18 17:40 Sodium Chloride IVPB 100 mls/hr Q12H ROBERT Administration Lacosamide 100 mg/ Sodium 60 mls @ 100 mls/hr 04/15/18 20:00 04/23/18 09:09 Chloride IVPB 100 mls/hr Q12H ROBERT Administration Vancomycin/Sodium Chloride 1 gm in 200 mls @ 133 mls/hr 04/20/18 09:00 04/23/18 09:09 Vancomycin 1 Gm/Ns 200 Ml IVPB 04/25/18 09:01 133 mls/hr Q24H ROBERT Administration Protocol Insulin Aspart 0 unit 04/17/18 00:00 04/23/18 13:15 Novolog SC Not Given Q6 ROBERT Protocol Levothyroxine Sodium 75 mcg 04/17/18 06:30 04/23/18 05:36 Synthroid PO 75 mcg DAILY@0630 ROBERT Administration Lorazepam 1 mg 04/17/18 17:30 04/21/18 01:20 Ativan IVP 1 mg Q4H PRN Administration Seizure activity Pantoprazole Sodium 40 mg 04/19/18 10:00 04/23/18 09:11 Protonix Susp GT 40 mg DAILY ROBERT Administration Rosuvastatin Calcium 5 mg 04/18/18 22:00 04/22/18 21:21 Crestor PO 5 mg HS ROBERT Administration - Patient Studies Lab Studies: Microbiology Studies 04/19/18 08:30 Blood Culture - Preliminary Blood-Venous NO GROWTH AFTER 4 DAYS 04/19/18 08:00 Blood Culture - Preliminary Blood-Venous NO GROWTH AFTER 4 DAYS Lab Studies 04/23/18 04/23/18 04/23/18 Range/Units 05:34 04:20 04:20 WBC (4.8-10.8) K/uL RBC (4.40-5.90) Mil/uL Hgb (12.0-18.0) g/dL Hct (35.0-51.0) % MCV (80.0-94.0) fL MCH (27.0-31.0) pg MCHC (33.0-37.0) g/dL RDW (11.5-14.5) % Plt Count (130-400) K/uL MPV (7.2-11.7) fL Neut % (Auto) (50.0-75.0) % Lymph % (Auto) (20.0-40.0) % Childress % (Auto) (0.0-10.0) % Eos % (Auto) (0.0-4.0) % Baso % (Auto) (0.0-2.0) % Neut # (Auto) (1.8-7.0) K/uL Lymph # (Auto) (1.0-4.3) K/uL Childress # (Auto) (0.0-0.8) K/uL Eos # (Auto) (0.0-0.7) K/uL Baso # (Auto) (0.0-0.2) K/uL Neutrophils % (Manual) (50-75) % Band Neutrophils % (0-2) % Lymphocytes % (Manual) (20-40) % Reactive Lymphs % (0-0) % Monocytes % (Manual) (0-10) % Eosinophils % (Manual) (0-4) % Platelet Estimate (NORMAL) RBC Morphology PT 13.1 H (9.7-12.2) SECONDS INR 1.2 APTT 30 (21-34) SECONDS Puncture Site Lr pCO2 32 L (35-45) mm/Hg pO2 134 H (80-100) mm/Hg HCO3 27.9 (21-28) mmol/L ABG pH 7.52 H (7.35-7.45) ABG Total CO2 27.1 (22-28) mmol/L ABG O2 Saturation 99.6 H (95-98) % ABG Base Excess 3.7 H (-2.0-3.0) mmol/L Jose Test Pos ABG Potassium 3.7 (3.6-5.2) mmol/L A-a O2 Difference 325.0 mm/Hg Respiratory Index 2.4 Glucose 110 (75-110) mg/dl Lactate 1.0 (0.7-2.1) mmol/L Vent Mode Prvc Mechanical Rate 18 FiO2 70.0 % Tidal Volume 500 PEEP 5 Sodium 137.0 (132-148) mmol/L Potassium (3.6-5.2) mmol/L Chloride 108.0 H (98-107) mmol/L Carbon Dioxide (22-30) mmol/L Anion Gap (10-20) BUN (9-20) mg/dL Creatinine (0.8-1.5) mg/dL Est GFR ( Amer) Est GFR (Non-Af Amer) Random Glucose (75-110) mg/dL Calcium (8.6-10.4) mg/dl Phosphorus (2.5-4.5) mg/dL Magnesium (1.6-2.3) mg/dL Total Bilirubin (0.2-1.3) mg/dL AST (17-59) U/L ALT (21-72) U/L Alkaline Phosphatase (38-126) U/L Total Protein (6.3-8.3) g/dL Albumin (3.5-5.0) g/dL Globulin (2.2-3.9) gm/dL Albumin/Globulin Ratio (1.0-2.1) Arterial Blood Potassium 3.7 (3.6-5.2) mmol/L Valproic Acid 55.3 (50.0-100.0) ug/mL Levetiracetam mcg/mL 04/23/18 04/23/18 04/18/18 Range/Units 04:20 04:20 06:52 WBC 11.3 H (4.8-10.8) K/uL RBC 4.04 L (4.40-5.90) Mil/uL Hgb 12.6 (12.0-18.0) g/dL Hct 37.7 (35.0-51.0) % MCV 93.4 (80.0-94.0) fL MCH 31.2 H (27.0-31.0) pg MCHC 33.4 (33.0-37.0) g/dL RDW 12.5 (11.5-14.5) % Plt Count 205 (130-400) K/uL MPV 8.1 (7.2-11.7) fL Neut % (Auto) 79.8 H (50.0-75.0) % Lymph % (Auto) 9.9 L (20.0-40.0) % Childress % (Auto) 6.0 (0.0-10.0) % Eos % (Auto) 3.9 (0.0-4.0) % Baso % (Auto) 0.4 (0.0-2.0) % Neut # (Auto) 9.0 H (1.8-7.0) K/uL Lymph # (Auto) 1.1 (1.0-4.3) K/uL Childress # (Auto) 0.7 (0.0-0.8) K/uL Eos # (Auto) 0.4 (0.0-0.7) K/uL Baso # (Auto) 0.0 (0.0-0.2) K/uL Neutrophils % (Manual) 77 H (50-75) % Band Neutrophils % 2 (0-2) % Lymphocytes % (Manual) 11 L (20-40) % Reactive Lymphs % 3 H (0-0) % Monocytes % (Manual) 3 (0-10) % Eosinophils % (Manual) 4 (0-4) % Platelet Estimate Normal (NORMAL) RBC Morphology Normal PT (9.7-12.2) SECONDS INR APTT (21-34) SECONDS Puncture Site pCO2 (35-45) mm/Hg pO2 (80-100) mm/Hg HCO3 (21-28) mmol/L ABG pH (7.35-7.45) ABG Total CO2 (22-28) mmol/L ABG O2 Saturation (95-98) % ABG Base Excess (-2.0-3.0) mmol/L Jose Test ABG Potassium (3.6-5.2) mmol/L A-a O2 Difference mm/Hg Respiratory Index Glucose (75-110) mg/dl Lactate (0.7-2.1) mmol/L Vent Mode Mechanical Rate FiO2 % Tidal Volume PEEP Sodium 137 (132-148) mmol/L Potassium 3.7 (3.6-5.2) mmol/L Chloride 105 (98-107) mmol/L Carbon Dioxide 26 (22-30) mmol/L Anion Gap 10 (10-20) BUN 20 (9-20) mg/dL Creatinine 0.8 (0.8-1.5) mg/dL Est GFR ( Amer) > 60 Est GFR (Non-Af Amer) > 60 Random Glucose 106 (75-110) mg/dL Calcium 8.7 (8.6-10.4) mg/dl Phosphorus 3.4 (2.5-4.5) mg/dL Magnesium 2.2 (1.6-2.3) mg/dL Total Bilirubin 0.8 (0.2-1.3) mg/dL AST 66 H (17-59) U/L ALT 36 (21-72) U/L Alkaline Phosphatase 105 (38-126) U/L Total Protein 6.1 L (6.3-8.3) g/dL Albumin 3.1 L (3.5-5.0) g/dL Globulin 2.9 (2.2-3.9) gm/dL Albumin/Globulin Ratio 1.1 (1.0-2.1) Arterial Blood Potassium (3.6-5.2) mmol/L Valproic Acid (50.0-100.0) ug/mL Levetiracetam 24.6 mcg/mL Laboratory Results - last 24 hr 04/18/18 04/23/18 04/23/18 06:52 04:20 04:20 WBC 11.3 H RBC 4.04 L Hgb 12.6 Hct 37.7 MCV 93.4 MCH 31.2 H MCHC 33.4 RDW 12.5 Plt Count 205 MPV 8.1 Neut % (Auto) 79.8 H Lymph % (Auto) 9.9 L Child[place] % (Auto) 6.0 Eos % (Auto) 3.9 Baso % (Auto) 0.4 Neut # (Auto) 9.0 H Lymph # (Auto) 1.1 Childress # (Auto) 0.7 Eos # (Auto) 0.4 Baso # (Auto) 0.0 Neutrophils % (Manual) 77 H Band Neutrophils % 2 Lymphocytes % (Manual) 11 L Reactive Lymphs % 3 H Monocytes % (Manual) 3 Eosinophils % (Manual) 4 Platelet Estimate Normal RBC Morphology Normal PT INR APTT Puncture Site pCO2 pO2 HCO3 ABG pH ABG Total CO2 ABG O2 Saturation ABG Base Excess Jose Test ABG Potassium A-a O2 Difference Respiratory Index Glucose Lactate Vent Mode Mechanical Rate FiO2 Tidal Volume PEEP Sodium 137 Potassium 3.7 Chloride 105 Carbon Dioxide 26 Anion Gap 10 BUN 20 Creatinine 0.8 Est GFR ( Amer) > 60 Est GFR (Non-Af Amer) > 60 Random Glucose 106 Calcium 8.7 Phosphorus 3.4 Magnesium 2.2 Total Bilirubin 0.8 AST 66 H ALT 36 Alkaline Phosphatase 105 Total Protein 6.1 L Albumin 3.1 L Globulin 2.9 Albumin/Globulin Ratio 1.1 Arterial Blood Potassium Valproic Acid Levetiracetam 24.6 04/23/18 04/23/18 04/23/18 04:20 04:20 05:34 WBC RBC Hgb Hct MCV MCH MCHC RDW Plt Count MPV Neut % (Auto) Lymph % (Auto) [place] % (Auto) Eos % (Auto) Baso % (Auto) Neut # (Auto) Lymph # (Auto) [place] # (Auto) Eos # (Auto) Baso # (Auto) Neutrophils % (Manual) Band Neutrophils % Lymphocytes % (Manual) Reactive Lymphs % Monocytes % (Manual) Eosinophils % (Manual) Platelet Estimate RBC Morphology PT 13.1 H INR 1.2 APTT 30 Puncture Site Lr pCO2 32 L pO2 134 H HCO3 27.9 ABG pH 7.52 H ABG Total CO2 27.1 ABG O2 Saturation 99.6 H ABG Base Excess 3.7 H Jose Test Pos ABG Potassium 3.7 A-a O2 Difference 325.0 Respiratory Index 2.4 Glucose 110 Lactate 1.0 Vent Mode Prvc Mechanical Rate 18 FiO2 70.0 Tidal Volume 500 PEEP 5 Sodium 137.0 Potassium Chloride 108.0 H Carbon Dioxide Anion Gap BUN Creatinine Est GFR ( Amer) Est GFR (Non-Af Amer) Random Glucose Calcium Phosphorus Magnesium Total Bilirubin AST ALT Alkaline Phosphatase Total Protein Albumin Globulin Albumin/Globulin Ratio Arterial Blood Potassium 3.7 Valproic Acid 55.3 Levetiracetam Radiology Impressions: Radiology Impressions Chest X-Ray 04/23/18 07:00 IMPRESSION: Mixed pattern of likely relief of atelectasis at the right base and no occurrence of left basilar atelectasis with minimal left pleural effusion again evident. No pulmonary vascular congestion. Critical Care Progress Note - Nutrition Nutrition: Nutrition Category Date Time Status NPO Diet [DIET] Diets 04/13/18 Dinner Active Attending/Attestation - Attestation I have personally seen and examined this patient.: Yes I have fully participated in the care of the patient.: Yes I have reviewed all pertinent clinical information: Yes Notes (Text): 04/23/18 18:09 Today: Monday, April 23, 2018 The Patient was seen and examined at the bedside, Medical records reviewed, and management issues were discussed and formulated with the house staff. I have reviewed all the relevant clinical, laboratory, hemodynamic, radiographic data and medications Events reviewed Pain issues, skin care, head of the bed elevation, glycemic control were addressed. Agree with above resident's assessment and treatment plans of care as transcribed in Dr. Robertson's note.
--- NOTE | 2018-04-23 10:14 | RAD ---
Date of service: 04/23/2018 HISTORY: intubated COMPARISON: Portable chest 04/22/2018 6:56 a.m.. FINDINGS: LUNGS: Endotracheal tube may have been advanced somewhat, now seen terminating 2.9 cm above the alan/just below the level of clavicles. Right PICC unchanged in position as well as nasogastric tube. There is now all improved aeration at the right base with right hemidiaphragm well defined. No infiltrate is appreciated at the right. Left hemidiaphragm however is silhouetted suggesting likely basilar atelectasis with infiltrate not favored. PLEURA: No pneumothorax bilaterally or right pleural effusion. Minimal left pleural effusion not excluded. CARDIOVASCULAR: No aortic atherosclerotic calcification present. Normal cardiac size. No pulmonary vascular congestion. OSSEOUS STRUCTURES: No significant abnormalities. VISUALIZED UPPER ABDOMEN: Normal. OTHER FINDINGS: None. IMPRESSION: Mixed pattern of likely relief of atelectasis at the right base and no occurrence of left basilar atelectasis with minimal left pleural effusion again evident. No pulmonary vascular congestion.
--- NOTE | 2018-04-23 11:40 | CP.PCM.PN ---
Subjective - Date & Time of Evaluation Date of Evaluation: 04/23/18 Time of Evaluation: 11:38 - Subjective Subjective: Anoxic encephalopathy Dependent on NG feeds Poor prognosis Objective - Vital Signs/Intake and Output Vital Signs (last 24 hours): Temp Pulse Resp BP Pulse Ox 99.1 F 98 H 23 121/72 100 04/23/18 08:00 04/23/18 11:00 04/23/18 11:00 04/23/18 11:00 04/23/18 11:00 Intake and Output: 04/23/18 04/23/18 06:59 18:59 Intake Total 759.2 355 Output Total 900 400 Balance -140.8 -45 - Medications Medications: Current Medications Acetaminophen (Tylenol 650mg/20.3ml Solution Ud) 650 mg PO Q6 PRN PRN Reason: Temperaure >100.4 Last Admin: 04/22/18 06:02 Dose: 650 mg Aspirin (Aspirin Chewable) 81 mg PO DAILY [facility] Last Admin: 04/23/18 09:10 Dose: 81 mg Heparin Sodium (Porcine) (Heparin) 5,000 units SC Q8 [facility] Last Admin: 04/23/18 05:37 Dose: 5,000 units Levetiracetam 1,500 mg/ (Dextrose) 115 mls @ 420 mls/hr IVPB Q12H [facility] Last Admin: 04/23/18 02:46 Dose: 420 mls/hr Propofol (Diprivan) 1,000 mg in 100 mls @ 2.735 mls/hr IV .Q24H PRN; Protocol PRN Reason: TITRATE PER MD ORDER Last Admin: 04/23/18 05:42 Dose: 20 mcg/kg/min, 10.941 mls/hr Valproate Sodium 1,000 mg/ (Sodium Chloride) 110 mls @ 100 mls/hr IVPB Q12H [facility] Last Admin: 04/23/18 05:37 Dose: 100 mls/hr Lacosamide 100 mg/ Sodium (Chloride) 60 mls @ 100 mls/hr IVPB Q12H [facility] Last Admin: 04/23/18 09:09 Dose: 100 mls/hr Vancomycin/Sodium Chloride (Vancomycin 1 Gm/Ns 200 Ml) 1 gm in 200 mls @ 133 mls/hr IVPB Q24H [facility]; Protocol Stop: 04/25/18 09:01 Last Admin: 04/23/18 09:09 Dose: 133 mls/hr Insulin Aspart (Novolog) 0 unit SC Q6 [facility]; Protocol Last Admin: 04/23/18 05:00 Dose: Not Given Levothyroxine Sodium (Synthroid) 75 mcg PO DAILY@0630 [facility] Last Admin: 04/23/18 05:36 Dose: 75 mcg Lorazepam (Ativan) 1 mg IVP Q4H PRN PRN Reason: Seizure activity Last Admin: 04/21/18 01:20 Dose: 1 mg Pantoprazole Sodium (Protonix Susp) 40 mg GT DAILY [facility] Last Admin: 04/23/18 09:11 Dose: 40 mg Rosuvastatin Calcium (Crestor) 5 mg PO HS [facility] Last Admin: 04/22/18 21:21 Dose: 5 mg - Labs Labs: 04/23/18 04:20 04/23/18 04:20 PT 13.1 SECONDS (9.7-12.2) H 04/23/18 04:20 INR 1.2 04/23/18 04:20 APTT 30 SECONDS (21-34) 04/23/18 04:20 - Constitutional Appears: No Acute Distress - Head Exam Head Exam: NORMOCEPHALIC - Neck Exam Additional comments: tracheostomy - Respiratory Exam Respiratory Exam: NORMAL BREATHING PATTERN - Cardiovascular Exam Cardiovascular Exam: REGULAR RHYTHM - GI/Abdominal Exam GI & Abdominal Exam: Soft. absent: Tenderness Assessment and Plan (1) Anoxic brain injury Status: Acute (2) Dysphagia Assessment & Plan: Consider Ethics consult as to whether PEG is appropriate. What is this patient's prognosis? Will monitor and decide on PEG Status: Acute
--- NOTE | 2018-04-23 15:12 | CP.PCM.PN ---
Subjective - Date & Time of Evaluation Date of Evaluation: 04/23/18 Time of Evaluation: 15:12 - Subjective Subjective: Neuro Follow-Up: evaluated this afternoon in the ICU. Family present at bedside (pt's son and ). Pt remains intubated, on sedation (Propofol). Does not follow commands. Per son, he was notified about the MRI results and him and pt's have decided on terminal extubation on 04/27/18. Per son, they want to give their family members time to pay their respects. ROS unobtainable from pt / his current status. Objective - Vital Signs/Intake and Output Vital Signs (last 24 hours): Temp Pulse Resp BP Pulse Ox 98.6 F 75 18 128/70 100 04/23/18 12:00 04/23/18 14:00 04/23/18 14:00 04/23/18 14:00 04/23/18 14:00 Intake and Output: 04/23/18 04/23/18 06:59 18:59 Intake Total 759.2 588 Output Total 900 550 Balance -140.8 38 - Medications Medications: Current Medications Acetaminophen (Tylenol 650mg/20.3ml Solution Ud) 650 mg PO Q6 PRN PRN Reason: Temperaure >100.4 Last Admin: 04/22/18 06:02 Dose: 650 mg Aspirin (Aspirin Chewable) 81 mg PO DAILY [facility] Last Admin: 04/23/18 09:10 Dose: 81 mg Heparin Sodium (Porcine) (Heparin) 5,000 units SC Q8 [facility] Last Admin: 04/23/18 14:12 Dose: 5,000 units Levetiracetam 1,500 mg/ (Dextrose) 115 mls @ 420 mls/hr IVPB Q12H [facility] Last Admin: 04/23/18 14:12 Dose: 420 mls/hr Propofol (Diprivan) 1,000 mg in 100 mls @ 2.735 mls/hr IV .Q24H PRN; Protocol PRN Reason: TITRATE PER MD ORDER Last Admin: 04/23/18 15:01 Dose: 20 mcg/kg/min, 10.941 mls/hr Valproate Sodium 1,000 mg/ (Sodium Chloride) 110 mls @ 100 mls/hr IVPB Q12H [facility] Last Admin: 04/23/18 05:37 Dose: 100 mls/hr Lacosamide 100 mg/ Sodium (Chloride) 60 mls @ 100 mls/hr IVPB Q12H [facility] Last Admin: 04/23/18 09:09 Dose: 100 mls/hr Vancomycin/Sodium Chloride (Vancomycin 1 Gm/Ns 200 Ml) 1 gm in 200 mls @ 133 mls/hr IVPB Q24H [facility]; Protocol Stop: 04/25/18 09:01 Last Admin: 04/23/18 09:09 Dose: 133 mls/hr Insulin Aspart (Novolog) 0 unit SC Q6 [facility]; Protocol Last Admin: 04/23/18 13:15 Dose: Not Given Levothyroxine Sodium (Synthroid) 75 mcg PO DAILY@0630 [facility] Last Admin: 04/23/18 05:36 Dose: 75 mcg Lorazepam (Ativan) 1 mg IVP Q4H PRN PRN Reason: Seizure activity Last Admin: 04/21/18 01:20 Dose: 1 mg Pantoprazole Sodium (Protonix Susp) 40 mg GT DAILY [facility] Last Admin: 04/23/18 09:11 Dose: 40 mg Rosuvastatin Calcium (Crestor) 5 mg PO HS [facility] Last Admin: 04/22/18 21:21 Dose: 5 mg - Labs Labs: 04/23/18 04:20 04/23/18 04:20 PT 13.1 SECONDS (9.7-12.2) H 04/23/18 04:20 INR 1.2 04/23/18 04:20 APTT 30 SECONDS (21-34) 04/23/18 04:20 - Constitutional Appears: Other (intubated, on sedation, does not follow commands) - Head Exam Head Exam: NORMAL INSPECTION, NORMOCEPHALIC - Eye Exam Pupil Exam: Fixed Additional comments: Pupils both reactive to light; are equal at 2-3 mm b/l No dolls eyes Unsure if corneals are present--attempted multiple times and pts eyes and forehead had 2-3 episodes of twitching. Per primary RN she had same finding on physical exam---this is consistent with yesterday. + scleral icterus noted today - ENT Exam ENT Exam: Mucous Membranes Moist (intubated) - Neck Exam Neck Exam: Normal Inspection - Respiratory Exam Additional comments: intubated - Cardiovascular Exam Cardiovascular Exam: REGULAR RHYTHM - GI/Abdominal Exam Additional comments: ogt in place - Extremities Exam Additional comments: Extremities edematous Extremities flaccid; fall immediately to the bed when raised. - Neurological Exam Neurological Exam: Altered Additional comments: Pt is intubated, on sedation Does not follow commands Pupils both reactive to light; are equal at 2-3mm b/l No dolls eyes Unsure if corneals are present--attempted multiple times and pts eyes and forehead had 2-3 episodes of twitching. Per primary RN she had same finding on physical exam. This is the same as yesterday. No purposeful or non-purposeful movements noted Extremities flaccid today. No myoclonic movements noted today, though 2-3 episodes of twitching noted to eyes and forehead when assessing for corneal reflex. 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 Further clinical correlation advised. No definite lobar brain infarction identified. -Repeat VEEG (04/20/18-04/21/18): This was an abnormal video EEG, monitoring study, due to the presence of: 1-Severe background slowing/attenuation. No seizures, not in status epilepticus. The above mentioned findings are in keeping with a severe non specific diffuse disturbance of cortical activity. This is in keeping with a diffuse pablo matter dysfunction. The findings do not suggest a specific etiology. -CT Head (04/18/18): Probable diffuse hypoxic insult with diffuse cerebral edema and loss of pablo/white matter differentiation. No evidence of herniation. No focal vascular territorial infarct. Chronic pansinusitis. Mild nonspecific bilateral mastoid effusion. -EEG (04/15/18): This is an abnormal EEG record that demonstrate the presence of severe non specific diffuse disturbance of cortical activity, this is keeping with a diffuse pablo matter dysfunction, these findings are not specific. There were rhythmic muscle artifact seen, most likely mycolonus, this are usually seen in hypoxic brain insults, please correlate clinically. No seizures. Patient is not in status epilepticus -CT head (04/15/18): Extensive diffuse homogeneous appearance of the brain par enchyma with loss of the corticomedullary distinction and on diminution of cerebral sulci. Findings consistent with sequela diffuse hypoxia. -CT head (04/14/18): Little interval change in mild diffuse effacement of cortical sulci and indistinct pablo-white matter differentiation related to hypoxic-anoxic insult with the stated clinical history. -CT head (04/13/18): No acute intracranial hemorrhage. There is mild homogeneous appearance of the brain parenchyma with subtle indistinct appearance of the corticomedullary junction. Findings could represent mild diffuse cerebral edema related to hypoxia however clinical correlation suggested. -Continue Keppra, Valproic Acid, and Vimpat as ordered. Continue sedation per ICU orders. -Trach and peg on hold for now due to family's decision of terminal extubation over the weekend if there is still no improvement. -Continue ICU management for now. -Pt's son and spoken to multiple times by neuro team regarding prognosis. Today, all concerns and questions addressed with pt's son and . -Discussed with ICU team. -Notify neuro if there is any acute change in pt's condition. Sharifa Pepper, [place], INVESTIGATIONS CONSULTANT Discussed with Dr. Escobar Status: Acute
--- NOTE | 2018-04-23 18:33 | CP.PCM.PN ---
Subjective - Date & Time of Evaluation Date of Evaluation: 04/23/18 Time of Evaluation: 18:31 - Subjective Subjective: mental status unchanged MRI brain reviewed Objective - Vital Signs/Intake and Output Vital Signs (last 24 hours): Temp Pulse Resp BP Pulse Ox 98.3 F 90 26 H 136/97 H 100 04/23/18 16:00 04/23/18 17:00 04/23/18 17:00 04/23/18 16:59 04/23/18 17:00 Intake and Output: 04/23/18 04/23/18 06:59 18:59 Intake Total 759.2 1171 Output Total 900 800 Balance -140.8 371 - Medications Medications: Current Medications Acetaminophen (Tylenol 650mg/20.3ml Solution Ud) 650 mg PO Q6 PRN PRN Reason: Temperaure >100.4 Last Admin: 04/22/18 06:02 Dose: 650 mg Aspirin (Aspirin Chewable) 81 mg PO DAILY [facility] Last Admin: 04/23/18 09:10 Dose: 81 mg Heparin Sodium (Porcine) (Heparin) 5,000 units SC Q8 [facility] Last Admin: 04/23/18 14:12 Dose: 5,000 units Levetiracetam 1,500 mg/ (Dextrose) 115 mls @ 420 mls/hr IVPB Q12H [facility] Last Admin: 04/23/18 14:12 Dose: 420 mls/hr Propofol (Diprivan) 1,000 mg in 100 mls @ 2.735 mls/hr IV .Q24H [facility]; Protocol PRN Reason: TITRATE PER MD ORDER Last Admin: 04/23/18 15:01 Dose: 20 mcg/kg/min, 10.941 mls/hr Valproate Sodium 1,000 mg/ (Sodium Chloride) 110 mls @ 100 mls/hr IVPB Q12H [facility] Last Admin: 04/23/18 17:40 Dose: 100 mls/hr Lacosamide 100 mg/ Sodium (Chloride) 60 mls @ 100 mls/hr IVPB Q12H [facility] Last Admin: 04/23/18 09:09 Dose: 100 mls/hr Vancomycin/Sodium Chloride (Vancomycin 1 Gm/Ns 200 Ml) 1 gm in 200 mls @ 133 mls/hr IVPB Q24H [facility]; Protocol Stop: 04/25/18 09:01 Last Admin: 03/13/19 09:09 Dose: 133 mls/hr Insulin Aspart (Novolog) 0 unit SC Q6 [facility]; Protocol Last Admin: 04/23/18 13:15 Dose: Not Given Levothyroxine Sodium (Synthroid) 75 mcg PO DAILY@0630 [facility] Last Admin: 04/23/18 05:36 Dose: 75 mcg Lorazepam (Ativan) 1 mg IVP Q4H PRN PRN Reason: Seizure activity Last Admin: 04/21/18 01:20 Dose: 1 mg Pantoprazole Sodium (Protonix Susp) 40 mg GT DAILY [facility] Last Admin: 04/23/18 09:11 Dose: 40 mg Rosuvastatin Calcium (Crestor) 5 mg PO HS [facility] Last Admin: 04/22/18 21:21 Dose: 5 mg - Labs Labs: 04/23/18 04:20 04/23/18 04:20 PT 13.1 SECONDS (9.7-12.2) H 04/23/18 04:20 INR 1.2 04/23/18 04:20 APTT 30 SECONDS (21-34) 04/23/18 04:20 - Constitutional Appears: No Acute Distress - Eye Exam Eye Exam: PERRL - Respiratory Exam Additional comments: intubated and sedated - Cardiovascular Exam Cardiovascular Exam: REGULAR RHYTHM - GI/Abdominal Exam GI & Abdominal Exam: Soft - Neurological Exam Additional comments: sedated - Skin Skin Exam: Warm Assessment and Plan - Assessment and Plan (Free Text) Assessment: -Repeat VEEG (04/20/18-04/21/18): This was an abnormal video EEG, monitoring study, due to the presence of: 1-Severe background slowing/attenuation. No seizures, not in status epilepticus. The above mentioned findings are in keeping with a severe non specific diffuse disturbance of cortical activity. This is in keeping with a diffuse pablo matter dysfunction. The findings do not suggest a specific etiology. -CT Head (04/18/18): Probable diffuse hypoxic insult with diffuse cerebral edema and loss of pablo/white matter differentiation. No evidence of herniation. No focal vascular territorial infarct. Chronic pansinusitis. Mild nonspecific bilateral mastoid effusion. -EEG (04/15/18): This is an abnormal EEG record that demonstrate the presence of severe non specific diffuse disturbance of cortical activity, this is keeping with a diffuse pablo matter dysfunction, these findings are not specific. There were rhythmic muscle artifact seen, most likely mycolonus, this are usually seen in hypoxic brain insults, please correlate clinically. No seizures. Patient is not in status epilepticus -CT head (04/15/18): Extensive diffuse homogeneous appearance of the brain parenchyma with loss of the corticomedullary distinction and on diminution of cerebral sulci. Findings consistent with sequela diffuse hypoxia. -CT head (04/14/18): Little interval change in mild diffuse effacement of cortical sulci and indistinct pablo-white matter differentiation related to hypoxic-anoxic insult with the stated clinical history. -CT head (04/13/18): No acute intracranial hemorrhage. There is mild homogeneous appearance of the brain parenchyma with subtle indistinct appearance of the corticomedullary junction. Findings could represent mild diffuse cerebral edema related to hypoxia however clinical correlation suggested. 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 Further clinical correlation advised. No definite lobar brain infarction identified. -Continue Keppra, Valproic Acid, and Vimpat as ordered. Continue sedation per ICU orders. -For possible trach and peg this week pending the MRI results and pending family's final decision. -Continue ICU management. -Neuro following -Overall poor prognosis Prophylactic measures -protonix 40mg gt daily -Heparin 5000unit q8h subQ
--- NOTE | 2018-04-23 23:21 | CP.PCM.PN ---
Subjective - Date & Time of Evaluation Date of Evaluation: 04/23/18 Time of Evaluation: 14:10 - Subjective Subjective: Patient on ventilator No change in cinical status Objective - Vital Signs/Intake and Output Vital Signs (last 24 hours): Temp Pulse Resp BP Pulse Ox 98.3 F 90 26 H 136/97 H 100 04/23/18 16:00 04/23/18 17:00 04/23/18 17:00 04/23/18 16:59 04/23/18 17:00 Intake and Output: 04/23/18 04/23/18 06:59 18:59 Intake Total 759.2 1171 Output Total 900 800 Balance -140.8 371 - Medications Medications: Current Medications Acetaminophen (Tylenol 650mg/20.3ml Solution Ud) 650 mg PO Q6 PRN PRN Reason: Temperaure >100.4 Last Admin: 04/22/18 06:02 Dose: 650 mg Aspirin (Aspirin Chewable) 81 mg PO DAILY [facility] Last Admin: 04/23/18 09:10 Dose: 81 mg Heparin Sodium (Porcine) (Heparin) 5,000 units SC Q8 [facility] Last Admin: 04/23/18 14:12 Dose: 5,000 units Levetiracetam 1,500 mg/ (Dextrose) 115 mls @ 420 mls/hr IVPB Q12H [facility] Last Admin: 04/23/18 14:12 Dose: 420 mls/hr Propofol (Diprivan) 1,000 mg in 100 mls @ 2.735 mls/hr IV .Q24H [facility]; Protocol PRN Reason: TITRATE PER MD ORDER Last Admin: 04/23/18 15:01 Dose: 20 mcg/kg/min, 10.941 mls/hr Valproate Sodium 1,000 mg/ (Sodium Chloride) 110 mls @ 100 mls/hr IVPB Q12H [facility] Last Admin: 04/23/18 17:40 Dose: 100 mls/hr Lacosamide 100 mg/ Sodium (Chloride) 60 mls @ 100 mls/hr IVPB Q12H [facility] Last Admin: 04/23/18 09:09 Dose: 100 mls/hr Vancomycin/Sodium Chloride (Vancomycin 1 Gm/Ns 200 Ml) 1 gm in 200 mls @ 133 mls/hr IVPB Q24H [facility]; Protocol Stop: 04/25/18 09:01 Last Admin: 04/23/18 09:09 Dose: 133 mls/hr Insulin Aspart (Novolog) 0 unit SC Q6 [facility]; Protocol Last Admin: 04/23/18 13:15 Dose: Not Given Levothyroxine Sodium (Synthroid) 75 mcg PO DAILY@0630 [facility] Last Admin: 04/23/18 05:36 Dose: 75 mcg Lorazepam (Ativan) 1 mg IVP Q4H PRN PRN Reason: Seizure activity Last Admin: 04/21/18 01:20 Dose: 1 mg Pantoprazole Sodium (Protonix Susp) 40 mg GT DAILY [facility] Last Admin: 04/23/18 09:11 Dose: 40 mg Rosuvastatin Calcium (Crestor) 5 mg PO HS [facility] Last Admin: 04/22/18 21:21 Dose: 5 mg - Labs Labs: 04/23/18 04:20 04/23/18 04:20 PT 13.1 SECONDS (9.7-12.2) H 04/23/18 04:20 INR 1.2 04/23/18 04:20 APTT 30 SECONDS (21-34) 04/23/18 04:20 - Constitutional Appears: No Acute Distress - Eye Exam Eye Exam: PERRL - Respiratory Exam Additional comments: intubated and sedated - Cardiovascular Exam Cardiovascular Exam: REGULAR RHYTHM - GI/Abdominal Exam GI & Abdominal Exam: Soft - Neurological Exam Additional comments: sedated - Skin Skin Exam: Warm Assessment and Plan - Assessment and Plan (Free Text) Assessment: -Repeat VEEG (04/20/18-04/21/18): This was an abnormal video EEG, monitoring study, due to the presence of: 1-Severe background slowing/attenuation. No seizures, not in status epilepticus. The above mentioned findings are in keeping with a severe non specific diffuse disturbance of cortical activity. This is in keeping with a diffuse pablo matter dysfunction. The findings do not suggest a specific etiology. -CT Head (04/18/18): Probable diffuse hypoxic insult with diffuse cerebral edema a nd loss of pablo/white matter differentiation. No evidence of herniation. No focal vascular territorial infarct. Chronic pansinusitis. Mild nonspecific bilateral mastoid effusion. -EEG (04/15/18): This is an abnormal EEG record that demonstrate the presence of severe non specific diffuse disturbance of cortical activity, this is keeping with a diffuse pablo matter dysfunction, these findings are not specific. There were rhythmic muscle artifact seen, most likely mycolonus, this are usually seen in hypoxic brain insults, please correlate clinically. No seizures. Patient is not in status epilepticus -CT head (04/15/18): Extensive diffuse homogeneous appearance of the brain parenchyma with loss of the corticomedullary distinction and on diminution of cerebral sulci. Findings consistent with sequela diffuse hypoxia. -CT head (04/14/18): Little interval change in mild diffuse effacement of cortical sulci and indistinct pablo-white matter differentiation related to hypoxic-anoxic insult with the stated clinical history. -CT head (04/13/18): No acute intracranial hemorrhage. There is mild homogeneous appearance of the brain parenchyma with subtle indistinct appearance of the corticomedullary junction. Findings could represent mild diffuse cerebral edema related to hypoxia however clinical correlation suggested. 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 Further clinical correlation advised. No definite lobar brain infarction identified. -Continue Keppra, Valproic Acid, and Vimpat as ordered. Continue sedation per ICU orders. -For possible trach and peg this week pending the MRI results and pending family's final decision. -Continue ICU management. -Neuro following -Overall poor prognosis Prophylactic measures -protonix 40mg gt daily -Heparin 5000unit q8h subQ Objective - Vital Signs/Intake and Output Vital Signs (last 24 hours): Temp Pulse Resp BP Pulse Ox 99 F 72 20 122/74 100 04/23/18 20:00 04/23/18 23:00 04/23/18 23:00 04/23/18 23:00 04/23/18 23:00 Intake and Output: 04/23/18 04/24/18 18:59 06:59 Intake Total 1332 455 Output Total 850 650 Balance 482 -195 - Medications Medications: Current Medications Acetaminophen (Tylenol 650mg/20.3ml Solution Ud) 650 mg PO Q6 PRN PRN Reason: Temperaure >100.4 Last Admin: 04/22/18 06:02 Dose: 650 mg Aspirin (Aspirin Chewable) 81 mg PO DAILY [facility] Last Admin: 04/23/18 09:10 Dose: 81 mg Heparin Sodium (Porcine) (Heparin) 5,000 units SC Q8 [facility] Last Admin: 04/23/18 21:54 Dose: 5,000 units Levetiracetam 1,500 mg/ (Dextrose) 115 mls @ 420 mls/hr IVPB Q12H [facility] Last Admin: 04/23/18 14:12 Dose: 420 mls/hr Propofol (Diprivan) 1,000 mg in 100 mls @ 2.735 mls/hr IV .Q24H [facility]; Protocol PRN Reason: TITRATE PER MD ORDER Last Admin: 04/23/18 21:54 Dose: 20 mcg/kg/min, 10.941 mls/hr Valproate Sodium 1,000 mg/ (Sodium Chloride) 110 mls @ 100 mls/hr IVPB Q12H [facility] Last Admin: 04/23/18 17:40 Dose: 100 mls/hr Lacosamide 100 mg/ Sodium (Chloride) 60 mls @ 100 mls/hr IVPB Q12H [facility] Last Admin: 04/23/18 20:02 Dose: 100 mls/hr Vancomycin/Sodium Chloride (Vancomycin 1 Gm/Ns 200 Ml) 1 gm in 200 mls @ 133 mls/hr IVPB Q24H [facility]; Protocol Stop: 04/25/18 09:01 Last Admin: 04/23/18 09:09 Dose: 133 mls/hr Insulin Aspart (Novolog) 0 unit SC Q6 [facility]; Protocol Last Admin: 04/23/18 18:34 Dose: Not Given Levothyroxine Sodium (Synthroid) 75 mcg PO DAILY@0630 [facility] Last Admin: 04/23/18 05:36 Dose: 75 mcg Lorazepam (Ativan) 1 mg IVP Q4H PRN PRN Reason: Seizure activity Last Admin: 04/21/18 01:20 Dose: 1 mg Pantoprazole Sodium (Protonix Susp) 40 mg GT DAILY [facility] Last Admin: 04/23/18 09:11 Dose: 40 mg Rosuvastatin Calcium (Crestor) 5 mg PO HS [facility] Last Admin: 04/23/18 21:54 Dose: 5 mg - Labs Labs: 04/23/18 04:20 04/23/18 04:20 PT 13.1 SECONDS (9.7-12.2) H 04/23/18 04:20 INR 1.2 04/23/18 04:20 APTT 30 SECONDS (21-34) 04/23/18 04:20
[2018-04-24] MEDS: (Novolog) Insulin Aspart, Recombinant 100 u/ml 10 ml vial SC SCH ×3 (05:23→18:05)
[2018-04-24] MEDS: Valproate 1,000 MG in Sodium Chloride 0.9% 100 ML IVPB SCH ×2 (05:23→16:59)
[2018-04-24] MEDS: Levothyroxine 75 MCG TAB PO SCH (05:29)
[2018-04-24 05:45] LABS: ABG ALLEN TEST POS; ARTERIAL BLOOD GAS HCO3 27.1 mmol/L (21-28); ARTERIAL BLOOD GAS HEMOGLOBIN 12.8 g/dL (11.7-17.4); ARTERIAL BLOOD GAS O2 SAT 99.2 % (95-98); ARTERIAL BLOOD GAS PCO2 35 mm/Hg (35-45); ARTERIAL BLOOD GAS PH 7.48 (7.35-7.45); ARTERIAL BLOOD GAS PO2 121 mm/Hg (80-100); ARTERIAL BLOOD GAS TCO2 27.2 mmol/L (22-28)
[2018-04-24] MEDS: Propofol 10 mg/ml 1,000 MG/100 ML VIAL IV PRN ×3 (06:03→21:47)
[2018-04-24 06:29] LABS: BASO % 0.4 % (0.0-2.0); EOS # 0.5 K/uL (0.0-0.7); EOS % 4.5 % (0.0-4.0); HEMOGLOBIN 12.5 g/dL (12.0-18.0); LYMPH # 1.4 K/uL (1.0-4.3); LYMPH % 12.4 % (20.0-40.0); MEAN CELL VOLUME 93.9 fL (80.0-94.0); MEAN CORPUSCULAR HEMOGLOBIN 30.8 pg (27.0-31.0); MEAN CORPUSCULAR HGB CONC 32.8 g/dL (33.0-37.0); MONO # 0.7 K/uL (0.0-0.8); NEUT # 8.8 K/uL (1.8-7.0); NEUT % 76.7 % (50.0-75.0); NRBC % 0.1 % (0.0-2.0); RBC 4.05 Mil/uL (4.40-5.90); RED CELL DISTRIBUTION WIDTH 12.7 % (11.5-14.5); WHITE BLOOD COUNT 11.4 K/uL (4.8-10.8)
[2018-04-24 06:53] LABS: ALB/GLOB RATIO 1.1 (1.0-2.1); ALBUMIN 2.9 g/dL (3.5-5.0); ALT/SGPT 35 U/L (21-72); AST/SGOT 67 U/L (17-59); BLOOD UREA NITROGEN 19 mg/dL (9-20); CALCIUM 8.4 mg/dl (8.6-10.4); GFR NON-AFRICAN AMERICAN > 60
[2018-04-24] MEDS: LACOSAMIDE IVPB SCH ×2 (08:05→21:12)
[2018-04-24] MEDS: SODIUM CHLORIDE 0.9% IVPB SCH ×2 (08:05→21:12)
[2018-04-24] MEDS: Vancomycin 1 gm/NS 200 ml 1 GM/200 ML BAG IVPB SCH (09:02)
[2018-04-24] MEDS: Pantoprazole 40 mg Susp UD GT SCH (09:03)
--- NOTE | 2018-04-24 09:38 | CP.CCUPN ---
CCU Subjective - Physician Review Subjective (Free Text): ICU Progress Note for Dr. Juan Pt seen and examined at bedside this am. Intubated and sedated. Unable to obtain HPI and ROS due to pt's current mental status. No acute events reported overnight. CCU Objective - Vital Signs / Intake & Output Vital Signs (Last 4 hours): Vital Signs Temp Pulse Resp BP Pulse Ox 04/24/18 08:00 98.6 F 76 19 105/70 100 04/24/18 07:00 75 18 116/74 100 04/24/18 06:00 88 24 153/98 H 100 Intake and Output (Last 8hrs): Intake & Output 04/23/18 04/24/18 04/24/18 22:59 06:59 14:59 Intake Total 838 949 161 Output Total 725 1110 75 Balance 113 -161 86 Weight 190 lb Intake: IV 100 100 Intake, IV Amount 238 299 111 Right Arm PICC Distal 88 99 11 Port Right Arm PICC Proximal 150 200 100 Port Tube Feeding 400 450 50 Other 100 100 Output: Urine 725 1110 75 Urethral (Terry) 725 1110 75 Other: # Bowel Movements 1 - Physical Exam Head: Positive for: Atraumatic, Normocephalic Pupils: Positive for: PERRL Extroacular Muscles: Positive for: EOMI Conjunctiva: Positive for: Normal Mouth: Positive for: Moist Mucous Membranes Neck: Negative for: JVD, Lymphadenopathy Respiratory/Chest: Positive for: Other (on ventilator). Negative for: Respiratory Distress, Accessory Muscle Use, Wheezes, Rhonchi Cardiovascular: Positive for: Normal S1, S2. Negative for: Murmurs, Rub, Gallop Abdomen: Positive for: Normal Bowel Sounds. Negative for: Tenderness, Distention, Mass/Organomegaly Upper Extremity: Positive for: Normal Inspection, NORMAL PULSES, Neurovascularly Intact, Capillary Refill < 2s. Negative for: Cyanosis, Edema Lower Extremity: Positive for: Normal Inspection, NORMAL PULSES, Neurovascularly Intact, Capillary Refill < 2 s. Negative for: Edema, Cyanosis Skin: Positive for: Warm, Dry, Rashes Psychiatric: Positive for: Other (intubated) - Medications Active Medications: Active Medications Generic Name Dose Route Start Last Admin Trade Name Freq PRN Reason Stop Dose Admin Acetaminophen 650 mg 04/21/18 08:58 04/22/18 06:02 Tylenol 650mg/20.3ml Solution Ud PO 650 mg Q6 PRN Administration Temperaure >100.4 Aspirin 81 mg 04/19/18 10:00 04/24/18 09:03 Aspirin Chewable PO 81 mg DAILY ROBERT Administration Heparin Sodium (Porcine) 5,000 units 04/14/18 14:00 04/24/18 05:22 Heparin SC 5,000 units Q8 ROBERT Administration Levetiracetam 1,500 mg/ 115 mls @ 420 mls/hr 04/13/18 14:30 04/24/18 02:20 Dextrose IVPB 420 mls/hr Q12H ROBERT Administration Propofol 1,000 mg in 100 mls @ 2.735 mls/hr 04/13/18 22:57 04/24/18 06:03 Diprivan IV 20 mcg/kg/min .Q24H PRN 10.941 mls/hr TITRATE PER MD ORDER Administration Protocol 5 MCG/KG/MIN Valproate Sodium 1,000 mg/ 110 mls @ 100 mls/hr 04/15/18 18:00 04/24/18 05:23 Sodium Chloride IVPB 100 mls/hr Q12H ROBERT Administration Lacosamide 100 mg/ Sodium 60 mls @ 100 mls/hr 04/15/18 20:00 04/24/18 08:05 Chloride IVPB 100 mls/hr Q12H ROBERT Administration Vancomycin/Sodium Chloride 1 gm in 200 mls @ 133 mls/hr 04/20/18 09:00 04/24/18 09:02 Vancomycin 1 Gm/Ns 200 Ml IVPB 04/25/18 09:01 133 mls/hr Q24H ROBERT Administration Protocol Potassium Chloride 20 meq in 100 mls @ 50 mls/hr 04/24/18 10:00 Potassium Chloride 20 Meq/100 Ml IVPB 04/24/18 13:59 Q2H ROBERT Insulin Aspart 0 unit 04/17/18 00:00 04/24/18 05:23 Novolog SC 2 unit Q6 ROBERT Administration Protocol Levothyroxine Sodium 75 mcg 04/17/18 06:30 04/24/18 05:29 Synthroid PO 75 mcg DAILY@0630 ROBERT Administration Lorazepam 1 mg 04/17/18 17:30 04/21/18 01:20 Ativan IVP 1 mg Q4H PRN Administration Seizure activity Pantoprazole Sodium 40 mg 04/19/18 10:00 04/24/18 09:03 Protonix Susp GT 40 mg DAILY ROBERT Administration Rosuvastatin Calcium 5 mg 04/18/18 22:00 04/23/18 21:54 Crestor PO 5 mg HS ROBERT Administration - Patient Studies Lab Studies: Microbiology Studies 04/19/18 08:30 Blood Culture - Final Blood-Venous NO GROWTH AFTER 5 DAYS Gram Stain - Final TEST NOT PERFORMED 04/19/18 08:00 Blood Culture - Final Blood-Venous NO GROWTH AFTER 5 DAYS Gram Stain - Final TEST NOT PERFORMED Lab Studies 04/24/18 04/24/18 04/24/18 Range/Units 06:19 06:19 05:38 WBC 11.4 H (4.8-10.8) K/uL RBC 4.05 L (4.40-5.90) Mil/uL Hgb 12.5 (12.0-18.0) g/dL Hct 38.1 (35.0-51.0) % MCV 93.9 (80.0-94.0) fL MCH 30.8 (27.0-31.0) pg MCHC 32.8 L (33.0-37.0) g/dL RDW 12.7 (11.5-14.5) % Plt Count 269 (130-400) K/uL MPV 8.0 (7.2-11.7) fL Neut % (Auto) 76.7 H (50.0-75.0) % Lymph % (Auto) 12.4 L (20.0-40.0) % Solano % (Auto) 6.0 (0.0-10.0) % Eos % (Auto) 4.5 H (0.0-4.0) % Baso % (Auto) 0.4 (0.0-2.0) % Neut # (Auto) 8.8 H (1.8-7.0) K/uL Lymph # (Auto) 1.4 (1.0-4.3) K/uL Solano # (Auto) 0.7 (0.0-0.8) K/uL Eos # (Auto) 0.5 (0.0-0.7) K/uL Baso # (Auto) 0.0 (0.0-0.2) K/uL Puncture Site Lr pCO2 35 (35-45) mm/Hg pO2 121 H (80-100) mm/Hg HCO3 27.1 (21-28) mmol/L ABG pH 7.48 H (7.35-7.45) ABG Total CO2 27.2 (22-28) mmol/L ABG O2 Saturation 99.2 H (95-98) % ABG Base Excess 2.8 (-2.0-3.0) mmol/L ABG Hemoglobin 12.8 (11.7-17.4) g/dL ABG Carboxyhemoglobin 1.2 (0.5-1.5) % POC ABG HHb (Measured) 0.8 (0.0-5.0) % ABG Methemoglobin 1.0 (0.0-3.0) % Jose Test Pos A-a O2 Difference 334.0 mm/Hg Respiratory Index 2.8 Hgb O2 Saturation 97.0 (95.0-98.0) % Vent Mode Prvc Mechanical Rate 18 FiO2 70.0 % Tidal Volume 500 PEEP 5 Sodium 136 (132-148) mmol/L Potassium 3.3 L (3.6-5.2) mmol/L Chloride 103 (98-107) mmol/L Carbon Dioxide 27 (22-30) mmol/L Anion Gap 9 L (10-20) BUN 19 (9-20) mg/dL Creatinine 0.8 (0.8-1.5) mg/dL Est GFR ( Amer) > 60 Est GFR (Non-Af Amer) > 60 Random Glucose 149 H D (75-110) mg/dL Calcium 8.4 L (8.6-10.4) mg/dl Phosphorus 3.1 (2.5-4.5) mg/dL Magnesium 2.3 (1.6-2.3) mg/dL Total Bilirubin 0.4 (0.2-1.3) mg/dL AST 67 H (17-59) U/L ALT 35 (21-72) U/L Alkaline Phosphatase 108 (38-126) U/L Total Protein 5.7 L (6.3-8.3) g/dL Albumin 2.9 L (3.5-5.0) g/dL Globulin 2.7 (2.2-3.9) gm/dL Albumin/Globulin Ratio 1.1 (1.0-2.1) Levetiracetam mcg/mL 04/18/18 Range/Units 06:52 WBC (4.8-10.8) K/uL RBC (4.40-5.90) Mil/uL Hgb (12.0-18.0) g/dL Hct (35.0-51.0) % MCV (80.0-94.0) fL MCH (27.0-31.0) pg MCHC (33.0-37.0) g/dL RDW (11.5-14.5) % Plt Count (130-400) K/uL MPV (7.2-11.7) fL Neut % (Auto) (50.0-75.0) % Lymph % (Auto) (20.0-40.0) % Solano % (Auto) (0.0-10.0) % Eos % (Auto) (0.0-4.0) % Baso % (Auto) (0.0-2.0) % Neut # (Auto) (1.8-7.0) K/uL Lymph # (Auto) (1.0-4.3) K/uL Solano # (Auto) (0.0-0.8) K/uL Eos # (Auto) (0.0-0.7) K/uL Baso # (Auto) (0.0-0.2) K/uL Puncture Site pCO2 (35-45) mm/Hg pO2 (80-100) mm/Hg HCO3 (21-28) mmol/L ABG pH (7.35-7.45) ABG Total CO2 (22-28) mmol/L ABG O2 Saturation (95-98) % ABG Base Excess (-2.0-3.0) mmol/L ABG Hemoglobin (11.7-17.4) g/dL ABG Carboxyhemoglobin (0.5-1.5) % POC ABG HHb (Measured) (0.0-5.0) % ABG Methemoglobin (0.0-3.0) % Jose Test A-a O2 Difference mm/Hg Respiratory Index Hgb O2 Saturation (95.0-98.0) % Vent Mode Mechanical Rate FiO2 % Tidal Volume PEEP Sodium (132-148) mmol/L Potassium (3.6-5.2) mmol/L Chloride (98-107) mmol/L Carbon Dioxide (22-30) mmol/L Anion Gap (10-20) BUN (9-20) mg/dL Creatinine (0.8-1.5) mg/dL Est GFR ( Amer) Est GFR (Non-Af Amer) Random Glucose (75-110) mg/dL Calcium (8.6-10.4) mg/dl Phosphorus (2.5-4.5) mg/dL Magnesium (1.6-2.3) mg/dL Total Bilirubin (0.2-1.3) mg/dL AST (17-59) U/L ALT (21-72) U/L Alkaline Phosphatase (38-126) U/L Total Protein (6.3-8.3) g/dL Albumin (3.5-5.0) g/dL Globulin (2.2-3.9) gm/dL Albumin/Globulin Ratio (1.0-2.1) Levetiracetam 24.6 mcg/mL Laboratory Results - last 24 hr 04/18/18 04/24/18 04/24/18 06:52 05:38 06:19 WBC 11.4 H RBC 4.05 L Hgb 12.5 Hct 38.1 MCV 93.9 MCH 30.8 MCHC 32.8 L RDW 12.7 Plt Count 269 MPV 8.0 Neut % (Auto) 76.7 H Lymph % (Auto) 12.4 L Solano % (Auto) 6.0 Eos % (Auto) 4.5 H Baso % (Auto) 0.4 Neut # (Auto) 8.8 H Lymph # (Auto) 1.4 Solano # (Auto) 0.7 Eos # (Auto) 0.5 Baso # (Auto) 0.0 Puncture Site Lr pCO2 35 pO2 121 H HCO3 27.1 ABG pH 7.48 H ABG Total CO2 27.2 ABG O2 Saturation 99.2 H ABG Base Excess 2.8 ABG Hemoglobin 12.8 ABG Carboxyhemoglobin 1.2 POC ABG HHb (Measured) 0.8 ABG Methemoglobin 1.0 Jose Test Pos A-a O2 Difference 334.0 Respiratory Index 2.8 Hgb O2 Saturation 97.0 Vent Mode Prvc Mechanical Rate 18 FiO2 70.0 Tidal Volume 500 PEEP 5 Sodium Potassium Chloride Carbon Dioxide Anion Gap BUN Creatinine Est GFR ( Amer) Est GFR (Non-Af Amer) Random Glucose Calcium Phosphorus Magnesium Total Bilirubin AST ALT Alkaline Phosphatase Total Protein Albumin Globulin Albumin/Globulin Ratio Levetiracetam 24.6 04/24/18 06:19 WBC RBC Hgb Hct MCV MCH MCHC RDW Plt Count MPV Neut % (Auto) Lymph % (Auto) Solano % (Auto) Eos % (Auto) Baso % (Auto) Neut # (Auto) Lymph # (Auto) Solano # (Auto) Eos # (Auto) Baso # (Auto) Puncture Site pCO2 pO2 HCO3 ABG pH ABG Total CO2 ABG O2 Saturation ABG Base Excess ABG Hemoglobin ABG Carboxyhemoglobin POC ABG HHb (Measured) ABG Methemoglobin Jose Test A-a O2 Difference Respiratory Index Hgb O2 Saturation Vent Mode Mechanical Rate FiO2 Tidal Volume PEEP Sodium 136 Potassium 3.3 L Chloride 103 Carbon Dioxide 27 Anion Gap 9 L BUN 19 Creatinine 0.8 Est GFR ( Amer) > 60 Est GFR (Non-Af Amer) > 60 Random Glucose 149 H D Calcium 8.4 L Phosphorus 3.1 Magnesium 2.3 Total Bilirubin 0.4 AST 67 H ALT 35 Alkaline Phosphatase 108 Total Protein 5.7 L Albumin 2.9 L Globulin 2.7 Albumin/Globulin Ratio 1.1 Levetiracetam Radiology Impressions: Radiology Impressions Chest X-Ray 04/23/18 07:00 IMPRESSION: Mixed pattern of likely relief of atelectasis at the right base and no occurrence of left basilar atelectasis with minimal left pleural effusion again evident. No pulmonary vascular congestion. Fingerstick Blood Sugar Results: 114 Review of Systems - Review of Systems Systems not reviewed;Unavailable: Intubated Critical Care Progress Note - Nutrition Nutrition: Nutrition Category Date Time Status NPO Diet [DIET] Diets 04/13/18 Dinner Active Assessment/Plan - Assessment and Plan (Free Text) Assessment: 43 y o male with PMhx hypothyroidism, obesity, HLD, found unresponsive in parking lot in cardiac arrest, s/p ROSC. Cardiac cath demonstrated clean arteries, hypothermic protocol completed, monitoring neurologic status. Likely has poor prognosis. Pt was in status epilepticus on triple antiepileptic medication as per Neuro, titrated off Nimbex. Currently on Valproate and Propofol. 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 Currently intubated. Requested transfer as per family for pt to [facility] denied 03/15 insurance/reimbursement. Plan: Neuro: -Intubated and sedated -On Propofol drip -Nimbex titrated off -Video EEG results demonstrate no signs of status epilepticus -Lacosamide 100 mg IVPB q12h -Keppra 1500 mg q12h -Valproate 1 g q 12h -Ativan 1 mg q4h prn for agitation -Neuro consulted (Dr. 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 Further clinical correlation advised. No definite lobar brain infarction identified. Results of MRI discussed with family at bedside, family to decide whether to pursue aggressive measures of treatment further. Cardio: -Vitals stable -Clean coronary arteries -EF 65% -Cont to monitor Resp: -On ventilator -Settings 18/60/500/5 -Cont to monitor -Surgery (Dr. Rajan) consulted for trach placement, recs appreciated Renal: -BUN/Cr 19/0.8, wnl -IVF d/c'd GI: -Jevity 1.5 at rate of 20 ml/hr, goal to 50, increase by 5 -Stop free water flushes -GI (Dr. Alexander) consulted for Peg tube placement, recs appreciated Heme/ID: -H/H 12.5/38.1, stable -WBC 11.4, trending down -Urine terry cx 04/20 pos for gram neg andrew, f/u final sensitivities -?sepsis -Vanco/zosyn Endo: -Hx hypothyroidism TSH initial 0.06 C/w Synthroid 75 mcg daily Dispo: Results of MRI discussed with family at bedside, family to decide whether to further pursue aggressive measures of treatment. Tentative plan is for possible terminal extubation this weekend if clinical condition does not improve as per pt's son and . Pt seen, examined with, and plan discussed with Dr. Juan, attending physician. Naveen Robertson, PGY-1, Stream Control Officer Pager #[phone]
--- NOTE | 2018-04-24 10:02 | CP.PCM.PN ---
Subjective - Date & Time of Evaluation Date of Evaluation: 04/24/18 Time of Evaluation: 07:40 - Subjective Subjective: Medical attending note: Patient seen and examined. No events noted overnight. Patient completed MRI today. No family present at bedside-->speak to only and son regarding decision making Unable to ROS secondary to clinical condition. Objective - Vital Signs/Intake and Output Vital Signs (last 24 hours): Temp Pulse Resp BP Pulse Ox 98.6 F 72 18 114/68 100 04/24/18 08:00 04/24/18 09:00 04/24/18 09:00 04/24/18 09:00 04/24/18 09:00 Intake and Output: 04/24/18 04/24/18 06:59 18:59 Intake Total 1443 322 Output Total 1610 155 Balance -167 167 - Medications Medications: Current Medications Acetaminophen (Tylenol 650mg/20.3ml Solution Ud) 650 mg PO Q6 PRN PRN Reason: Temperaure >100.4 Last Admin: 04/22/18 06:02 Dose: 650 mg Aspirin (Aspirin Chewable) 81 mg PO DAILY [facility] Last Admin: 04/24/18 09:03 Dose: 81 mg Heparin Sodium (Porcine) (Heparin) 5,000 units SC Q8 ROBERT Last Admin: 04/24/18 05:22 Dose: 5,000 units Levetiracetam 1,500 mg/ (Dextrose) 115 mls @ 420 mls/hr IVPB Q12H ROBERT Last Admin: 04/24/18 02:20 Dose: 420 mls/hr Propofol (Diprivan) 1,000 mg in 100 mls @ 2.735 mls/hr IV .Q24H PRN; Protocol PRN Reason: TITRATE PER MD ORDER Last Admin: 04/24/18 06:03 Dose: 20 mcg/kg/min, 10.941 mls/hr Valproate Sodium 1,000 mg/ (Sodium Chloride) 110 mls @ 100 mls/hr IVPB Q12H [facility] Last Admin: 04/24/18 05:23 Dose: 100 mls/hr Lacosamide 100 mg/ Sodium (Chloride) 60 mls @ 100 mls/hr IVPB Q12H [facility] Last Admin: 04/24/18 08:05 Dose: 100 mls/hr Vancomycin/Sodium Chloride (Vancomycin 1 Gm/Ns 200 Ml) 1 gm in 200 mls @ 133 mls/hr IVPB Q24H ROBERT; Protocol Stop: 04/25/18 09:01 Last Admin: 04/24/18 09:02 Dose: 133 mls/hr Potassium Chloride (Potassium Chloride 20 Meq/100 Ml) 20 meq in 100 mls @ 50 mls/hr IVPB Q2H ROBERT Stop: 04/24/18 13:59 Last Admin: 04/24/18 09:48 Dose: 50 mls/hr Insulin Aspart (Novolog) 0 unit SC Q6 ROBERT; Protocol Last Admin: 04/24/18 05:23 Dose: 2 unit Levothyroxine Sodium (Synthroid) 75 mcg PO DAILY@0630 [facility] Last Admin: 04/24/18 05:29 Dose: 75 mcg Lorazepam (Ativan) 1 mg IVP Q4H PRN PRN Reason: Seizure activity Last Admin: 04/21/18 01:20 Dose: 1 mg Pantoprazole Sodium (Protonix Susp) 40 mg GT DAILY [facility] Last Admin: 04/24/18 09:03 Dose: 40 mg Rosuvastatin Calcium (Crestor) 5 mg PO HS [facility] Last Admin: 04/23/18 21:54 Dose: 5 mg - Labs Labs: 04/24/18 06:19 04/24/18 06:19 PT 13.1 SECONDS (9.7-12.2) H 04/23/18 04:20 INR 1.2 04/23/18 04:20 APTT 30 SECONDS (21-34) 04/23/18 04:20 - Constitutional Appears: Non-toxic, No Acute Distress - Eye Exam Pupil Exam: PERRL. absent: Irregular, Miosis Additional comments: no dolls eyes - ENT Exam ENT Exam: Mucous Membranes Moist - Respiratory Exam Respiratory Exam: Clear to Ausculation Bilateral. absent: Rales, Rhonchi Additional comments: + vent sounds - Cardiovascular Exam Cardiovascular Exam: REGULAR RHYTHM, +S1, +S2 - GI/Abdominal Exam GI & Abdominal Exam: Soft, Normal Bowel Sounds. absent: Distended, Firm, Gua rding, Rigid, Tenderness, Rebound - Extremities Exam Extremities Exam: absent: Pedal Edema, Tenderness - Neurological Exam Neurological Exam: Altered - Skin Skin Exam: Warm Assessment and Plan (1) Cardiac arrest Status: Acute (2) Anoxic brain injury Status: Acute (3) STEMI (ST elevation myocardial infarction) Status: Acute (4) Leukocytosis Status: Acute (5) Transaminitis Status: Acute (6) Myoclonic jerking Status: Acute (7) Prophylactic measure Status: Acute Attending/Attestation - Attestation I have personally seen and examined this patient.: Yes I have fully participated in the care of the patient.: Yes I have reviewed all pertinent clinical information, including history, physical exam and plan: Yes Notes (Text): 43 year old male who was admitted after cardiopulmonary arrest. Anoxic brain injury is suspected. He is currently intubated and on Vimpat,Propofol and Valproic Acid. Hypothermic protocol was completed 04/15/18. Video EEG was completed and official read. Neurology Dr. Snider is on board and has informed Son Jer and of poor prognosis during course of hospitalization. Dr. Escobar has went over the most r ecent MRI with the patient's son at bedside. Patient's code status is presently Full Code. In review of prior notes, the ICU doctors have spoken with family extensively and is currently in the process of arranging transfer to [facility] as per the family's request. transfer was denied per insurance. Case management is aware. I spoke with patient's son. we had quite of bit of discussion, he voices his dad has told his and mother if he was ever a vegetable that he would never want being on machine etc. Son reports he feels pressure to make the right choice in regards to the patient. I re-emphasized to the patient's son, as the acting healthy proxy that his role is to act according to the wishes of the patient and i spoke nursing, charge nurse as well, and advised expander for spiritual sport. 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 Further clinical correlation advised. No definite lobar brain infarction identified. EEG presently on going 1). Video EEG (04/18/18): This is an abnormal video EEG. Shows GPEDS, and BIPLEDs, indicative of severe anoxic injury. There are no seizures at this time. 2). CT Head (04/18/18): Probable diffuse hypoxic insult with diffuse cerebral alisia ma and loss of pablo/white matter differentiation. NO evidence of herniation. NO focal vascular territorial infarct. Chronis pansinusitis. Mild nonspecific bilateral mastoid effusion. 3). EEG (04/15/18): This is an abnormal EEG record that demonstrate the presence of severe non specific diffuse disturbance of cortical activity, this is keeping with a diffuse pablo matter dysfunction, these findings are not specific. There were rhythmic muscle artifact seen, most likely mycolonus, this are usually seen in hypoxic brain insults, please correlate clinically. No seizures. Patient is not in status epilepticus 4). CT Head (04/15/18): Extensive diffuse homogeneous appearance of the brain parenchyma with loss of the cortico-medullary distinction and on diminution of cerebral sulci. Findings consistent with sequela diffuse hypoxia. 5). CT Head (04/14/18): Little interval change in mild diffuse effacement of cortical sulci and indistinct pablo-white matter differentiation related to hypoxic-anoxic insult with the stated clinical history. 6). CT Head (04/13/18): No acute intracranial hemorrhage. There is mild homogeneous appearance of the brain parenchyma with subtle indistinct appearance of the cortico-medullary junction. Findings could represent mild diffuse cerebral edema related to hypoxia however clinical correlation suggested. He is on the following medications: Lacosamide 100 mg IV Q12H Midazolam 100 mg IV Q24H Propofol Drip Valproate 1,000 mg IV Q12H Vancomycin 1 gm IV Q24H Levothyroxine 75 mcg via OGT 1x/day Protonix 40 mg gt Q24H Heparin 5,000 Units SC Q8H Aspart ISS Q6H Jevity @ 50 ml/hr ROS is not possible due to patient unresponsiveness General: Intubated on vent with NGT, no jerking movements HEENT: no doll eyes Cardio: NS1 and NS2, NO M/R/G Resp: Breath sounds are clear today 04/19/18 GI: Central Obesity, BS are decreased in all 4 quadrants, Soft, no guarding Ext: Pulses are strong and equal upper and lower extremities, NO edema, Capillary refill is 2 seconds Neuro: exam is not possible, patient appears comatose Assessments: 1). Anoxic Brain Injury Status: Acute * neuro on board * sedation orders noted * see imaging as above 2). Acute Respiratory Failure Status: Acute * intubated and sedated 3). Cardiac Arrest Status: Acute * Cardiology on board * Normal coronaries per cath 4). Myoclonic Movements Status: Acute * see sedation orders as over 5). Leukocytosis Status: Acute * Blood cultures from 04/19/17: negative * urine culture (04/19/18): no growth * Urine culture (04/20/18): gram negative andrew * on vancomcyin * tylenol prn for fever * procalcitonin: 0.38 (04/13/18) * official report 04/18/18 venous doppler: none 6). Hx Hypothyroidism Status: Chronic * patient is on Synthroid 75mcg PO am 7) prophylactic measure * protonix 40mg gt daily * Heparin 5000unit subq 8H * Poor prognosis * PICC line
--- NOTE | 2018-04-24 12:08 | CP.PCM.PN ---
Subjective - Date & Time of Evaluation Date of Evaluation: 04/24/18 Time of Evaluation: 12:08 - Subjective Subjective: Neuro Follow-Up: evaluated this afternoon in the ICU. Pt's son is present today at bedside. Pt remains intubated, on sedation (Propofol). Does not follow commands. Per son, he is still looking of terminal extubation on 04/27/18. Per son, the pt's family and his 's family are still pressuring him to transfer to another facility. Son understands the gravity of the pt's situation and the poor prognosis. He would benefit from palliative care. ROS unobtainable from pt 2/2 his current status. Objective - Vital Signs/Intake and Output Vital Signs (last 24 hours): Temp Pulse Resp BP Pulse Ox 98.6 F 78 20 106/64 100 04/24/18 08:00 04/24/18 11:00 04/24/18 11:00 04/24/18 11:00 04/24/18 11:00 Intake and Output: 04/24/18 04/24/18 06:59 18:59 Intake Total 1443 494 Output Total 1610 285 Balance -167 209 - Medications Medications: Current Medications Acetaminophen (Tylenol 650mg/20.3ml Solution Ud) 650 mg PO Q6 PRN PRN Reason: Temperaure >100.4 Last Admin: 04/22/18 06:02 Dose: 650 mg Aspirin (Aspirin Chewable) 81 mg PO DAILY [facility] Last Admin: 04/24/18 09:03 Dose: 81 mg Heparin Sodium (Porcine) (Heparin) 5,000 units SC Q8 [facility] Last Admin: 04/24/18 05:22 Dose: 5,000 units Levetiracetam 1,500 mg/ (Dextrose) 115 mls @ 420 mls/hr IVPB Q12H [facility] Last Admin: 04/24/18 02:20 Dose: 420 mls/hr Propofol (Diprivan) 1,000 mg in 100 mls @ 2.735 mls/hr IV .Q24H PRN; Protocol PRN Reason: TITRATE PER MD ORDER Last Admin: 04/24/18 06:03 Dose: 20 mcg/kg/min, 10.941 mls/hr Valproate Sodium 1,000 mg/ (Sodium Chloride) 110 mls @ 100 mls/hr IVPB Q12H [facility] Last Admin: 04/24/18 05:23 Dose: 100 mls/hr Lacosamide 100 mg/ Sodium (Chloride) 60 mls @ 100 mls/hr IVPB Q12H [facility] Last Admin: 04/24/18 08:05 Dose: 100 mls/hr Vancomycin/Sodium Chloride (Vancomycin 1 Gm/Ns 200 Ml) 1 gm in 200 mls @ 133 mls/hr IVPB Q24H [facility]; Protocol Stop: 04/25/18 09:01 Last Admin: 04/24/18 09:02 Dose: 133 mls/hr Potassium Chloride (Potassium Chloride 20 Meq/100 Ml) 20 meq in 100 mls @ 50 mls/hr IVPB Q2H [facility] Stop: 04/24/18 13:59 Last Admin: 04/24/18 09:48 Dose: 50 mls/hr Insulin Aspart (Novolog) 0 unit SC Q6 [facility]; Protocol Last Admin: 04/24/18 05:23 Dose: 2 unit Levothyroxine Sodium (Synthroid) 75 mcg PO DAILY@0630 [facility] Last Admin: 04/24/18 05:29 Dose: 75 mcg Lorazepam (Ativan) 1 mg IVP Q4H PRN PRN Reason: Seizure activity Last Admin: 04/21/18 01:20 Dose: 1 mg Pantoprazole Sodium (Protonix Susp) 40 mg GT DAILY [facility] Last Admin: 04/24/18 09:03 Dose: 40 mg Rosuvastatin Calcium (Crestor) 5 mg PO HS [facility] Last Admin: 04/23/18 21:54 Dose: 5 mg - Labs Labs: 04/24/18 06:19 04/24/18 06:19 PT 13.1 SECONDS (9.7-12.2) H 04/23/18 04:20 INR 1.2 04/23/18 04:20 APTT 30 SECONDS (21-34) 04/23/18 04:20 - Constitutional Appears: Other (intubated; on sedation; does not follow commands; not arousable to sternal rub) - Head Exam Head Exam: NORMAL INSPECTION, NORMOCEPHALIC - Eye Exam Eye Exam: PERRL Pupil Exam: NORMAL ACCOMODATION, PERRL Additional comments: Pupils both reactive to light; are equal at 5 mm b/l today No dolls eyes No corneals - ENT Exam ENT Exam: Mucous Membranes Moist Additional comments: intubated - Neck Exam Neck Exam: Normal Inspection - Respiratory Exam Respiratory Exam: absent: NORMAL BREATHING PATTERN (intubated) - Cardiovascular Exam Cardiovascular Exam: REGULAR RHYTHM - GI/Abdominal Exam GI & Abdominal Exam: Soft Additional comments: ogt - Extremities Exam Extremities Exam: absent: Full ROM Additional comments: Extremities edematous Extremities flaccid; fall immediately to the bed when raised. Some tone noted to LUE - Neurological Exam Neurological Exam: Altered Neuro motor strength exam: Left Upper Extremity: 0, Right Upper Extremity: 0, Left Lower Extremity: 0, Right Lower Extremity: 0 Additional comments: Pt is intubated, on sedation (Propofol) Does not follow commands; no movements/not arousable to sternal rub. Pupils both reactive to light; are equal at 5 mm b/l No dolls eyes No corneals No purposeful or non-purposeful movements noted Extremities flaccid today. 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 Further clinical correlation advised. No definite lobar brain infarction identified. -Repeat VEEG (04/20/18-04/21/18): This was an abnormal video EEG, monitoring study, due to the presence of: 1-Severe background slowing/attenuation. No seizures, not in status epilepticus. The above mentioned findings are in keeping with a severe non specific diffuse disturbance of cortical activity. This is in keeping with a diffuse pablo matter dysfunction. The findings do not suggest a specific etiology. -CT Head (04/18/18): Probable diffuse hypoxic insult with diffuse cerebral edema and loss of pablo/white matter differentiation. No evidence of herniation. No focal vascular territorial infarct. Chronic pansinusitis. Mild nonspecific bilateral mastoid effusion. -EEG (04/15/18): This is an abnormal EEG record that demonstrate the presence of severe non specific diffuse disturbance of cortical activity, this is keeping with a diffuse pablo matter dysfunction, these findings are not specific. There were rhythmic muscle artifact seen, most likely mycolonus, this are usually seen in hypoxic brain insults, please correlate clinically. No seizures. Patient is not in status epilepticus -CT head (04/15/18): Extensive diffuse homogeneous appearance of the brain parenchyma with loss of the corticomedullary distinction and on diminution of cerebral sulci. Findings consistent with sequela diffuse hypoxia. -CT head (04/14/18): Little interval change in mild diffuse effacement of cortical sulci and indistinct pablo-white matter differentiation related to hypoxic-anoxic insult with the stated clinical history. -CT head (04/13/18): No acute intracranial hemorrhage. There is mild homogeneous appearance of the brain parenchyma with subtle indistinct appearance of the corticomedullary junction. Findings could represent mild diffuse cerebral edema related to hypoxia however clinical correlation suggested. -Continue Keppra, Valproic Acid, and Vimpat as ordered. Continue sedation per ICU orders. -Trach and peg on hold for now due to family's decision of terminal extubation over the weekend if there is still no improvement. -Continue ICU management for now. -Today, all concerns and questions addressed with pt's son. -Notify neuro if there is any acute change in pt's condition. Sharifa Pepper, [place], [employer]CR[employer]OR INST[employer]ER Discussed with Dr. Escobar Status: Acute
--- NOTE | 2018-04-24 12:36 | RAD ---
Date of service: 04/24/2018 HISTORY: intubated COMPARISON: 04/23/2018 FINDINGS: LUNGS: Vague increased opacity at right lung base perceived on current study some interval atelectasis here and/or interval infiltrate here are considerations. Interval blunting of the right costophrenic angle suggested. Left lung base hazy opacity noted bud overall improved aeration suggested at this left lung base. Endotracheal tube tip approximately 3 cm cephalad to alan-at clavicle level. PLEURA: Interval small right pleural effusion inferred. No pneumothorax noted CARDIOVASCULAR: No aortic atherosclerotic calcification present. Normal cardiac size. Current pulmonary vasculature appears less congested than before. Interval improved pulmonary venous congestion inferred. Right PICC line tip right atrium-similar. OSSEOUS STRUCTURES: Left shoulder arthrosis. VISUALIZED UPPER ABDOMEN: Nasogastric tube inserted-its inferior edge is beyond the inferior edge of this image. Gastric coursing suggested. OTHER FINDINGS: None. IMPRESSION: Interval small right pleural effusion and/or pleural thickening suspect. The current lung volumes are slightly less than before.-interval subsegmental atelectasis and/or interval small infiltrate at right lung base be considered given the interval opacity perceived. Improved aeration at left lung base. No worsening pathology here seen. Interval improved/diminished pulmonary venous congestion. Support lines well positioned as above.
[2018-04-25] MEDS: (Novolog) Insulin Aspart, Recombinant 100 u/ml 10 ml vial SC SCH ×5 (00:37→23:53)
[2018-04-25] MEDS: Valproate 1,000 MG in Sodium Chloride 0.9% 100 ML IVPB SCH ×2 (05:14→17:45)
[2018-04-25 05:45] LABS: ABG ALLEN TEST POS; ARTERIAL BLOOD GAS HCO3 26.2 mmol/L (21-28); ARTERIAL BLOOD GAS HEMOGLOBIN 13.5 g/dL (11.7-17.4); ARTERIAL BLOOD GAS PCO2 33 mm/Hg (35-45); ARTERIAL BLOOD GAS PH 7.48 (7.35-7.45); ARTERIAL BLOOD GAS PO2 96 mm/Hg (80-100); ARTERIAL BLOOD GAS TCO2 25.6 mmol/L (22-28)
[2018-04-25] MEDS: Levothyroxine 75 MCG TAB PO SCH (05:48)
[2018-04-25 06:24] LABS: BASO % 0.3 % (0.0-2.0); EOS # 0.5 K/uL (0.0-0.7); EOS % 4.9 % (0.0-4.0); LYMPH # 1.5 K/uL (1.0-4.3); LYMPH % 13.7 % (20.0-40.0); MEAN CELL VOLUME 94.5 fL (80.0-94.0); MEAN CORPUSCULAR HEMOGLOBIN 31.7 pg (27.0-31.0); MEAN CORPUSCULAR HGB CONC 33.5 g/dL (33.0-37.0); MONO # 0.5 K/uL (0.0-0.8); NEUT # 8.1 K/uL (1.8-7.0); NEUT % 76.1 % (50.0-75.0); RBC 3.8 Mil/uL (4.40-5.90); RED CELL DISTRIBUTION WIDTH 12.9 % (11.5-14.5); WHITE BLOOD COUNT 10.6 K/uL (4.8-10.8)
[2018-04-25 06:42] LABS: ALB/GLOB RATIO 1.1 (1.0-2.1); ALBUMIN 2.9 g/dL (3.5-5.0); ALT/SGPT 33 U/L (21-72); AST/SGOT 68 U/L (17-59); BLOOD UREA NITROGEN 22 mg/dL (9-20); CALCIUM 8.4 mg/dl (8.6-10.4); GFR NON-AFRICAN AMERICAN > 60
[2018-04-25] MEDS: Propofol 10 mg/ml 1,000 MG/100 ML VIAL IV PRN (07:43)
[2018-04-25] MEDS: LACOSAMIDE IVPB SCH ×2 (08:34→20:36)
[2018-04-25] MEDS: SODIUM CHLORIDE 0.9% IVPB SCH ×2 (08:34→20:36)
--- NOTE | 2018-04-25 08:59 | RAD ---
Chest x-ray single frontal view HISTORY: Ventilator. Comparison: 04/24/2018 Findings: Lines and tubes in stable position. Moderate venous congestion. Patchy bibasilar airspace opacities. Small left and trace right pleural effusion. Cardiomegaly. Degenerative changes in the spine and shoulders. Impression: Lines and tubes in stable position. Moderate venous congestion. Patchy bibasilar airspace opacities. Small left and trace right pleural effusion. Cardiomegaly.
[2018-04-25] MEDS: Vancomycin 1 gm/NS 200 ml 1 GM/200 ML BAG IVPB SCH (09:06)
[2018-04-25] MEDS: Pantoprazole 40 mg Susp UD GT SCH (09:07)
--- NOTE | 2018-04-25 11:15 | CP.PCM.PN ---
Subjective - Date & Time of Evaluation Date of Evaluation: 04/25/18 Time of Evaluation: 11:15 - Subjective Subjective: Neuro Follow-Up: evaluated this afternoon in the ICU. No family at bedside today. Pt is still intubated, on Propofol for sedation. Does not follow commands. Discussed with primary RN the ICU team's concern of pt possibly withdrawing and request for repeat EEG. ROS unobtainable from pt 2/2 his current status. Objective - Vital Signs/Intake and Output Vital Signs (last 24 hours): Temp Pulse Resp BP Pulse Ox 99 F 80 20 123/79 100 04/25/18 04:00 04/25/18 06:00 04/25/18 06:00 04/25/18 10:00 04/25/18 06:00 Intake and Output: 04/25/18 04/25/18 06:59 18:59 Intake Total 1268.7 115 Output Total 630 Balance 638.7 115 - Medications Medications: Current Medications Acetaminophen (Tylenol 650mg/20.3ml Solution Ud) 650 mg PO Q6 PRN PRN Reason: Temperaure >100.4 Last Admin: 04/22/18 06:02 Dose: 650 mg Albuterol/Ipratropium (Duoneb 3 Mg/0.5 Mg (3 Ml) Ud) 3 ml INH RQ4 [facility] Aspirin (Aspirin Chewable) 81 mg PO DAILY [facility] Last Admin: 04/25/18 09:07 Dose: 81 mg Chlordiazepoxide (Librium) 75 mg PO Q6H [facility] Last Admin: 04/25/18 10:51 Dose: 75 mg Heparin Sodium (Porcine) (Heparin) 5,000 units SC Q8 [facility] Last Admin: 04/25/18 05:13 Dose: 5,000 units Levetiracetam 1,500 mg/ (Dextrose) 115 mls @ 420 mls/hr IVPB Q12H [facility] Last Admin: 04/25/18 03:09 Dose: 420 mls/hr Valproate Sodium 1,000 mg/ (Sodium Chloride) 110 mls @ 100 mls/hr IVPB Q12H [facility] Last Admin: 04/25/18 05:14 Dose: 100 mls/hr Lacosamide 100 mg/ Sodium (Chloride) 60 mls @ 100 mls/hr IVPB Q12H [facility] Last Admin: 04/25/18 08:34 Dose: 100 mls/hr Insulin Aspart (Novolog) 0 unit SC Q6 [facility]; Protocol Last Admin: 04/25/18 05:13 Dose: 2 unit Levothyroxine Sodium (Synthroid) 75 mcg PO DAILY@0630 [facility] Last Admin: 04/25/18 05:48 Dose: 75 mcg Lorazepam (Ativan) 2 mg IVP Q4H PRN PRN Reason: Agitation Methylprednisolone (Solu-Medrol) 40 mg IVP Q6H [facility] Morphine Sulfate (Morphine) 2 mg IVP Q4 PRN PRN Reason: Pain, severe (8-10) Pantoprazole Sodium (Protonix Susp) 40 mg GT DAILY [facility] Last Admin: 04/25/18 09:07 Dose: 40 mg Rosuvastatin Calcium (Crestor) 5 mg PO HS [facility] Last Admin: 04/24/18 21:12 Dose: 5 mg - Labs Labs: 04/25/18 06:10 04/25/18 06:10 PT 13.1 SECONDS (9.7-12.2) H 04/23/18 04:20 INR 1.2 04/23/18 04:20 APTT 30 SECONDS (21-34) 04/23/18 04:20 - Constitutional Appears: Other (intubated, on sedation ) - Head Exam Head Exam: NORMAL INSPECTION, NORMOCEPHALIC - Eye Exam Eye Exam: EOMI, PERRL Pupil Exam: PERRL Additional comments: Pupils both reactive to light; are equal at 2-3 mm b/l today No dolls eyes Corneals present - ENT Exam ENT Exam: Mucous Membranes Moist (intubated) - Neck Exam Neck Exam: Normal Inspection - Respiratory Exam Respiratory Exam: absent: NORMAL BREATHING PATTERN (intubated) - GI/Abdominal Exam Additional comments: ogt - Extremities Exam Additional comments: Extremities edematous though improving Extremities fall immediately to the bed when raised. Some tone noted to BUE today - Neurological Exam Neurological Exam: Altered Additional comments: Pt is intubated, on sedation (Propofol) though seems to have more movements to extremities today Does not follow commands Nonpurposeful movements noted today Pupils both reactive to light; are equal at 2-3 mm b/l No dolls eyes + corneals Some tone noted to BUE; extremities fall immediately when raised No myoclonic movements noted + Gag reflex BLE movements elicited with plantar reflex Hyporeflexia to BLE - Psychiatric Exam Additional comments: intubated - Skin Skin Exam: Normal Color Assessment and Plan (1) Anoxic brain injury Assessment & Plan: Imaging reviewed: -Brain MRI (04/22/18): 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 Further clinical correlation advised. No definite lobar brain infarction identified. -Repeat VEEG (04/20/18-04/21/18): This was an abnormal video EEG, monitoring study, due to the presence of: 1-Severe background slowing/attenuation. No seizures, not in status epilepticus. The above mentioned findings are in keeping with a severe non specific diffuse disturbance of cortical activity. This is in keeping with a diffuse pablo matter dysfunction. The findings do not suggest a specific etiology. -CT Head (04/18/18): Probable diffuse hypoxic insult with diffuse cerebral edema and loss of pablo/white matter differentiation. No evidence of herniation. No focal vascular territorial infarct. Chronic pansinusitis. Mild nonspecific bilateral mastoid effusion. -EEG (04/15/18): This is an abnormal EEG record that demonstrate the presence of severe non specific diffuse disturbance of cortical activity, this is keeping with a diffuse pablo matter dysfunction, these findings are not specific. There were rhythmic muscle artifact seen, most likely mycolonus, this are usually seen in hypoxic brain insults, please correlate clinically. No seizures. Patient is not in status epilepticus -CT head (04/15/18): Extensive diffuse homogeneous appearance of the brain parenchyma with loss of the corticomedullary distinction and on diminution of cerebral sulci. Findings consistent with sequela diffuse hypoxia. -CT head (04/14/18): Little interval change in mild diffuse effacement of cortical sulci and indistinct pablo-white matter differentiation related to hypoxic-anoxic insult with the stated clinical history. -CT head (04/13/18): No acute intracranial hemorrhage. There is mild homogeneous appearance of the brain parenchyma with subtle indistinct appearance of the corticomedullary junction. Findings could represent mild diffuse cerebral edema related to hypoxia however clinical correlation suggested. -Discussed concerns about possible withdrawal vs seizures with ICU team. I discussed this with Dr. Escobar, who also agrees that withdrawal on day 12 is unlikely. -We can repeat a VEEG x24 hours to eval for seizure. -Continue Keppra, Valproic Acid, and Vimpat as ordered. Continue sedation per ICU orders. -Trach and peg on hold for now due to family's decision of terminal extubation over the weekend if there is still no improvement. -Continue ICU management for now. -Notify neuro if there is any acute change in pt's condition. Sharifa Pepper DNP, [employer]TERATION WORKER Discussed with Dr. Escobar Status: Acute
--- NOTE | 2018-04-25 11:31 | CP.CCUPN ---
<Naveen Robertson - Last Filed: 04/25/18 16:04> CCU Subjective - Physician Review Subjective (Free Text): ICU Progress Note for Dr. Kingsley Riddle Pt seen and examined at bedside this am. Intubated and sedated. Unable to obtain HPI and ROS due to pt's current mental status. No acute events reported ov anushaight. CCU Objective - Vital Signs / Intake & Output Vital Signs (Last 4 hours): Vital Signs BP 04/25/18 10:00 123/79 Intake and Output (Last 8hrs): Intake & Output 04/24/18 04/25/18 04/25/18 22:59 06:59 14:59 Intake Total 838 774.7 115 Output Total 395 450 Balance 443 324.7 115 Weight 191 lb Intake: IV 100 115 Intake, IV Amount 238 274.7 Right Arm PICC Distal 88 74.7 Port Right Arm PICC Proximal 150 200 Port Tube Feeding 400 400 Other 100 100 Output: Urine 395 450 Urethral (Terry) 395 450 Other: # Bowel Movements 2 - Physical Exam Head: Positive for: Atraumatic, Normocephalic Pupils: Positive for: PERRL Conjunctiva: Positive for: Normal Mouth: Positive for: Moist Mucous Membranes Neck: Negative for: JVD, Lymphadenopathy Respiratory/Chest: Positive for: Other (on ventilator). Negative for: Respiratory Distress, Accessory Muscle Use, Wheezes, Rhonchi Cardiovascular: Positive for: Normal S1, S2. Negative for: Murmurs, Rub, Gallop Abdomen: Positive for: Normal Bowel Sounds. Negative for: Tenderness, Distention, Mass/Organomegaly Upper Extremity: Positive for: Normal Inspection, NORMAL PULSES, Neurovascularly Intact, Capillary Refill < 2s. Negative for: Cyanosis, Edema Lower Extremity: Positive for: Normal Inspection, NORMAL PULSES, Neurovascularly Intact, Capillary Refill < 2 s. Negative for: Edema, Cyanosis Neurological: Positive for: Other (Intubated; on exam demonstrated spontaneous upper and lower extremity movements, withdraws to Babinski reflex) Skin: Positive for: Warm, Dry, Rashes Psychiatric: Positive for: Other (intubated) Other physical findings (Free Text): Lacrimation and diaphoresis observed on exam, pt biting down on ETT - Medications Active Medications: Active Medications Generic Name Dose Route Start Last Admin Trade Name Freq PRN Reason Stop Dose Admin Acetaminophen 650 mg 04/21/18 08:58 04/22/18 06:02 Tylenol 650mg/20.3ml Solution Ud PO 650 mg Q6 PRN Administration Temperaure >100.4 Albuterol/Ipratropium 3 ml 04/25/18 12:00 Duoneb 3 Mg/0.5 Mg (3 Ml) Ud INH RQ4 ROBERT Aspirin 81 mg 04/19/18 10:00 04/25/18 09:07 Aspirin Chewable PO 81 mg DAILY ROBERT Administration Chlordiazepoxide 75 mg 04/25/18 10:45 04/25/18 10:51 Librium PO 75 mg Q6H ROBERT Administration Heparin Sodium (Porcine) 5,000 units 04/14/18 14:00 04/25/18 05:13 Heparin SC 5,000 units Q8 ROBERT Administration Levetiracetam 1,500 mg/ 115 mls @ 420 mls/hr 04/13/18 14:30 04/25/18 03:09 Dextrose IVPB 420 mls/hr Q12H ROBERT Administration Valproate Sodium 1,000 mg/ 110 mls @ 100 mls/hr 04/15/18 18:00 04/25/18 05:14 Sodium Chloride IVPB 100 mls/hr Q12H ROBERT Administration Lacosamide 100 mg/ Sodium 60 mls @ 100 mls/hr 04/15/18 20:00 04/25/18 08:34 Chloride IVPB 100 mls/hr Q12H ROBERT Administration Insulin Aspart 0 unit 04/17/18 00:00 04/25/18 05:13 Novolog SC 2 unit Q6 ROBERT Administration Protocol Levothyroxine Sodium 75 mcg 04/17/18 06:30 04/25/18 05:48 Synthroid PO 75 mcg DAILY@0630 ROBERT Administration Lorazepam 2 mg 04/25/18 10:41 Ativan IVP Q4H PRN Agitation Methylprednisolone 40 mg 04/25/18 16:00 Solu-Medrol IVP Q6H [facility] Morphine Sulfate 2 mg 04/25/18 10:44 Morphine IVP Q4 PRN Pain, severe (8-10) Pantoprazole Sodium 40 mg 04/19/18 10:00 04/25/18 09:07 Protonix Susp GT 40 mg DAILY ROBERT Administration Rosuvastatin Calcium 5 mg 04/18/18 22:00 04/24/18 21:12 Crestor PO 5 mg HS ROBERT Administration - Patient Studies Lab Studies: Microbiology Studies 04/19/18 08:30 Blood Culture - Final Blood-Venous NO GROWTH AFTER 5 DAYS Gram Stain - Final TEST NOT PERFORMED 04/19/18 08:00 Blood Culture - Final Blood-Venous NO GROWTH AFTER 5 DAYS Gram Stain - Final TEST NOT PERFORMED Lab Studies 04/25/18 04/25/18 04/25/18 Range/Units 06:10 06:10 05:36 WBC 10.6 (4.8-10.8) K/uL RBC 3.80 L (4.40-5.90) Mil/uL Hgb 12.0 (12.0-18.0) g/dL Hct 35.9 (35.0-51.0) % MCV 94.5 H (80.0-94.0) fL MCH 31.7 H (27.0-31.0) pg MCHC 33.5 (33.0-37.0) g/dL RDW 12.9 (11.5-14.5) % Plt Count 304 (130-400) K/uL MPV 8.0 (7.2-11.7) fL Neut % (Auto) 76.1 H (50.0-75.0) % Lymph % (Auto) 13.7 L (20.0-40.0) % [place] % (Auto) 5.0 (0.0-10.0) % Eos % (Auto) 4.9 H (0.0-4.0) % Baso % (Auto) 0.3 (0.0-2.0) % Neut # (Auto) 8.1 H (1.8-7.0) K/uL Lymph # (Auto) 1.5 (1.0-4.3) K/uL [place] # (Auto) 0.5 (0.0-0.8) K/uL Eos # (Auto) 0.5 (0.0-0.7) K/uL Baso # (Auto) 0.0 (0.0-0.2) K/uL Puncture Site Lr pCO2 33 L (35-45) mm/Hg pO2 96 (80-100) mm/Hg HCO3 26.2 (21-28) mmol/L ABG pH 7.48 H (7.35-7.45) ABG Total CO2 25.6 (22-28) mmol/L ABG O2 Saturation 99.0 H (95-98) % ABG Base Excess 1.6 (-2.0-3.0) mmol/L ABG Hemoglobin 13.5 (11.7-17.4) g/dL ABG Carboxyhemoglobin 1.4 (0.5-1.5) % POC ABG HHb (Measured) 1.0 (0.0-5.0) % ABG Methemoglobin 0.8 (0.0-3.0) % Jose Test Pos A-a O2 Difference 362.0 mm/Hg Respiratory Index 3.8 Hgb O2 Saturation 96.8 (95.0-98.0) % Vent Mode Prvc Mechanical Rate 18 FiO2 70.0 % Tidal Volume 500 PEEP 5 Sodium 137 (132-148) mmol/L Potassium 3.7 (3.6-5.2) mmol/L Chloride 104 (98-107) mmol/L Carbon Dioxide 28 (22-30) mmol/L Anion Gap 9 L (10-20) BUN 22 H (9-20) mg/dL Creatinine 0.7 L (0.8-1.5) mg/dL Est GFR ( Amer) > 60 Est GFR (Non-Af Amer) > 60 Random Glucose 131 H (75-110) mg/dL Calcium 8.4 L (8.6-10.4) mg/dl Phosphorus 2.9 (2.5-4.5) mg/dL Magnesium 2.2 (1.6-2.3) mg/dL Total Bilirubin 0.4 (0.2-1.3) mg/dL AST 68 H (17-59) U/L ALT 33 (21-72) U/L Alkaline Phosphatase 99 (38-126) U/L Total Protein 5.6 L (6.3-8.3) g/dL Albumin 2.9 L (3.5-5.0) g/dL Globulin 2.7 (2.2-3.9) gm/dL Albumin/Globulin Ratio 1.1 (1.0-2.1) Laboratory Results - last 24 hr 04/25/18 04/25/18 04/25/18 05:36 06:10 06:10 WBC 10.6 RBC 3.80 L Hgb 12.0 Hct 35.9 MCV 94.5 H MCH 31.7 H MCHC 33.5 RDW 12.9 Plt Count 304 MPV 8.0 Neut % (Auto) 76.1 H Lymph % (Auto) 13.7 L [place] % (Auto) 5.0 Eos % (Auto) 4.9 H Baso % (Auto) 0.3 Neut # (Auto) 8.1 H Lymph # (Auto) 1.5 [place] # (Auto) 0.5 Eos # (Auto) 0.5 Baso # (Auto) 0.0 Puncture Site Lr pCO2 33 L pO2 96 HCO3 26.2 ABG pH 7.48 H ABG Total CO2 25.6 ABG O2 Saturation 99.0 H ABG Base Excess 1.6 ABG Hemoglobin 13.5 ABG Carboxyhemoglobin 1.4 POC ABG HHb (Measured) 1.0 ABG Methemoglobin 0.8 Jose Test Pos A-a O2 Difference 362.0 Respiratory Index 3.8 Hgb O2 Saturation 96.8 Vent Mode Prvc Mechanical Rate 18 FiO2 70.0 Tidal Volume 500 PEEP 5 Sodium 137 Potassium 3.7 Chloride 104 Carbon Dioxide 28 Anion Gap 9 L BUN 22 H Creatinine 0.7 L Est GFR ( Amer) > 60 Est GFR (Non-Af Amer) > 60 Random Glucose 131 H Calcium 8.4 L Phosphorus 2.9 Magnesium 2.2 Total Bilirubin 0.4 AST 68 H ALT 33 Alkaline Phosphatase 99 Total Protein 5.6 L Albumin 2.9 L Globulin 2.7 Albumin/Globulin Ratio 1.1 Radiology Impressions: Radiology Impressions Chest X-Ray 04/24/18 07:29 IMPRESSION: Interval small right pleural effusion and/or pleural thickening suspect. The current lung volumes are slightly less than before.-interval subsegmental atelectasis and/or interval small infiltrate at right lung base be considered given the interval opacity perceived. Improved aeration at left lung base. No worsening pathology here seen. Interval improved/diminished pulmonary venous congestion. Support lines well positioned as above. Chest X-Ray 04/25/18 06:00 Impression: Lines and tubes in stable position. Moderate venous congestion. Patchy bibasilar airspace opacities. Small left and trace right pleural effusion. Cardiomegaly. Fingerstick Blood Sugar Results: 132 Review of Systems - Review of Systems Systems not reviewed;Unavailable: Intubated Critical Care Progress Note - Nutrition Nutrition: Nutrition Category Date Time Status NPO Diet [DIET] Diets 04/13/18 Dinner Active Assessment/Plan - Assessment and Plan (Free Text) Assessment: 43 y o male with PMhx hypothyroidism, obesity, HLD, found unresponsive in parking lot in cardiac arrest, s/p ROSC. Cardiac cath demonstrated clean arteries, hypothermic protocol completed, monitoring neurologic status. Likely has poor prognosis. Pt was in status epilepticus on triple antiepileptic medication as per Neuro, titrated off Nimbex. Propofol d/c'd today. 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 Currently intubated. Requested transfer as per family for pt to [facility] denied 03/15 insurance/reimbursement. Plan: Neuro: -Intubated -Propofol drip d/c'd today -Nimbex titrated off -Video EEG results demonstrate no signs of status epilepticus; repeat EEG ordered for today, f/u results -Lacosamide 100 mg IVPB q12h -Keppra 1500 mg q12h -Valproate 1 g q 12h -Ativan 1 mg q4h prn for agitation -Neuro consulted (Dr. 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 Further clinical correlation advised. No definite lobar brain infarction identified. Results of MRI discussed with family at bedside, family to decide whether to pursue aggressive measures of treatment further. -Concern for withdrawal symptoms 2/2 possible drug ingestion Utox positive for opioids; serum tox pending Given methadone Morphine prn for pain since pt is off sedation Librium taper, Ativan prn Cont to monitor Cardio: -Vitals stable -Clean coronary arteries -EF 65% -Cont to monitor Resp: -On ventilator -Settings 18/60/500/5 -Cont to monitor -Surgery (Dr. Rajan) consulted for trach placement, recs appreciated Renal: -BUN/Cr 22/0.7, wnl -IVF d/c'd GI: -Jevity 1.5 at rate of 20 ml/hr, goal to 50, increase by 5 -Stop free water flushes -GI (Dr. Alexander) consulted for Peg tube placement, recs appreciated Heme/ID: -H/H 12.0/35.9, stable -Leukocytosis resolved, cont to monitor -Urine terry cx 04/20 pos for gram neg andrew -?sepsis - S/p Vanco/zosyn rx Endo: -Hx hypothyroidism TSH initial 0.06 C/w Synthroid 75 mcg daily Dispo: Family to decide whether to further pursue aggressive measures of treatment, were not present at bedside today. Tentative plan is for possible terminal extubation this weekend if clinical condition does not improve as per pt's son and . Pt seen, examined with, and plan discussed with Dr. Kingsley Riddle, attending physician. Naveen Robertson DO PGY-1, [employer] Supervisor Pager #[phone] <Alfreda Riddle - Last Filed: 04/25/18 17:08> CCU Objective - Vital Signs / Intake & Output Vital Signs (Last 4 hours): Vital Signs Pulse Resp BP Pulse Ox 04/25/18 15:00 63 18 90/59 L 93 L 04/25/18 14:00 66 18 98/62 L 94 L Intake and Output (Last 8hrs): Intake & Output 04/25/18 04/25/18 04/25/18 06:59 14:59 22:59 Intake Total 774.7 115 Output Total 450 Balance 324.7 115 Weight 191 lb Intake: IV 115 Intake, IV Amount 274.7 Right Arm PICC Distal 74.7 Port Right Arm PICC Proximal 200 Port Tube Feeding 400 Other 100 Output: Urine 450 Urethral (Terry) 450 - Medications Active Medications: Active Medications Generic Name Dose Route Start Last Admin Trade Name Freq PRN Reason Stop Dose Admin Acetaminophen 650 mg 04/21/18 08:58 04/22/18 06:02 Tylenol 650mg/20.3ml Solution Ud PO 650 mg Q6 PRN Administration Temperaure >100.4 Albuterol/Ipratropium 3 ml 04/25/18 12:00 04/25/18 16:35 Duoneb 3 Mg/0.5 Mg (3 Ml) Ud INH 3 ml RQ4 ROBERT Administration Aspirin 81 mg 04/19/18 10:00 04/25/18 09:07 Aspirin Chewable PO 81 mg DAILY ROBERT Administration Chlordiazepoxide 25 mg 04/25/18 15:39 04/25/18 16:09 Librium PO 25 mg Q6H ROBERT Administration Heparin Sodium (Porcine) 5,000 units 04/14/18 14:00 04/25/18 16:00 Heparin SC 5,000 units Q8 ROBERT Administration Valproate Sodium 1,000 mg/ 110 mls @ 100 mls/hr 04/15/18 18:00 04/25/18 05:14 Sodium Chloride IVPB 100 mls/hr Q12H ROBERT Administration Lacosamide 100 mg/ Sodium 60 mls @ 100 mls/hr 04/15/18 20:00 04/25/18 08:34 Chloride IVPB 100 mls/hr Q12H ROBERT Administration Insulin Aspart 0 unit 04/17/18 00:00 04/25/18 12:13 Novolog SC Not Given Q6 [facility] Protocol Levothyroxine Sodium 75 mcg 04/17/18 06:30 04/25/18 05:48 Synthroid PO 75 mcg DAILY@0630 ROBERT Administration Lorazepam 2 mg 04/25/18 10:41 Ativan IVP Q4H PRN Agitation Methylprednisolone 40 mg 04/25/18 16:00 04/25/18 16:08 Solu-Medrol IVP 40 mg Q6H ROBERT Administration Morphine Sulfate 2 mg 04/25/18 10:44 Morphine IVP Q4 PRN Pain, severe (8-10) Pantoprazole Sodium 40 mg 04/19/18 10:00 04/25/18 09:07 Protonix Susp GT 40 mg DAILY ROBERT Administration Rosuvastatin Calcium 5 mg 04/18/18 22:00 04/24/18 21:12 Crestor PO 5 mg HS ROBERT Administration - Patient Studies Lab Studies: Lab Studies 04/25/18 04/25/18 04/25/18 Range/Units 06:10 06:10 05:36 WBC 10.6 (4.8-10.8) K/uL RBC 3.80 L (4.40-5.90) Mil/uL Hgb 12.0 (12.0-18.0) g/dL Hct 35.9 (35.0-51.0) % MCV 94.5 H (80.0-94.0) fL MCH 31.7 H (27.0-31.0) pg MCHC 33.5 (33.0-37.0) g/dL RDW 12.9 (11.5-14.5) % Plt Count 304 (130-400) K/uL MPV 8.0 (7.2-11.7) fL Neut % (Auto) 76.1 H (50.0-75.0) % Lymph % (Auto) 13.7 L (20.0-40.0) % [place] % (Auto) 5.0 (0.0-10.0) % Eos % (Auto) 4.9 H (0.0-4.0) % Baso % (Auto) 0.3 (0.0-2.0) % Neut # (Auto) 8.1 H (1.8-7.0) K/uL Lymph # (Auto) 1.5 (1.0-4.3) K/uL [place] # (Auto) 0.5 (0.0-0.8) K/uL Eos # (Auto) 0.5 (0.0-0.7) K/uL Baso # (Auto) 0.0 (0.0-0.2) K/uL Puncture Site Lr pCO2 33 L (35-45) mm/Hg pO2 96 (80-100) mm/Hg HCO3 26.2 (21-28) mmol/L ABG pH 7.48 H (7.35-7.45) ABG Total CO2 25.6 (22-28) mmol/L ABG O2 Saturation 99.0 H (95-98) % ABG Base Excess 1.6 (-2.0-3.0) mmol/L ABG Hemoglobin 13.5 (11.7-17.4) g/dL ABG Carboxyhemoglobin 1.4 (0.5-1.5) % POC ABG HHb (Measured) 1.0 (0.0-5.0) % ABG Methemoglobin 0.8 (0.0-3.0) % Jose Test Pos A-a O2 Difference 362.0 mm/Hg Respiratory Index 3.8 Hgb O2 Saturation 96.8 (95.0-98.0) % Vent Mode Prvc Mechanical Rate 18 FiO2 70.0 % Tidal Volume 500 PEEP 5 Sodium 137 (132-148) mmol/L Potassium 3.7 (3.6-5.2) mmol/L Chloride 104 (98-107) mmol/L Carbon Dioxide 28 (22-30) mmol/L Anion Gap 9 L (10-20) BUN 22 H (9-20) mg/dL Creatinine 0.7 L (0.8-1.5) mg/dL Est GFR ( Amer) > 60 Est GFR (Non-Af Amer) > 60 Random Glucose 131 H (75-110) mg/dL Calcium 8.4 L (8.6-10.4) mg/dl Phosphorus 2.9 (2.5-4.5) mg/dL Magnesium 2.2 (1.6-2.3) mg/dL Total Bilirubin 0.4 (0.2-1.3) mg/dL AST 68 H (17-59) U/L ALT 33 (21-72) U/L Alkaline Phosphatase 99 (38-126) U/L Total Protein 5.6 L (6.3-8.3) g/dL Albumin 2.9 L (3.5-5.0) g/dL Globulin 2.7 (2.2-3.9) gm/dL Albumin/Globulin Ratio 1.1 (1.0-2.1) Laboratory Results - last 24 hr 04/25/18 04/25/18 04/25/18 05:36 06:10 06:10 WBC 10.6 RBC 3.80 L Hgb 12.0 Hct 35.9 MCV 94.5 H MCH 31.7 H MCHC 33.5 RDW 12.9 Plt Count 304 MPV 8.0 Neut % (Auto) 76.1 H Lymph % (Auto) 13.7 L [place] % (Auto) 5.0 Eos % (Auto) 4.9 H Baso % (Auto) 0.3 Neut # (Auto) 8.1 H Lymph # (Auto) 1.5 [place] # (Auto) 0.5 Eos # (Auto) 0.5 Baso # (Auto) 0.0 Puncture Site Lr pCO2 33 L pO2 96 HCO3 26.2 ABG pH 7.48 H ABG Total CO2 25.6 ABG O2 Saturation 99.0 H ABG Base Excess 1.6 ABG Hemoglobin 13.5 ABG Carboxyhemoglobin 1.4 POC ABG HHb (Measured) 1.0 ABG Methemoglobin 0.8 Jose Test Pos A-a O2 Difference 362.0 Respiratory Index 3.8 Hgb O2 Saturation 96.8 Vent Mode Prvc Mechanical Rate 18 FiO2 70.0 Tidal Volume 500 PEEP 5 Sodium 137 Potassium 3.7 Chloride 104 Carbon Dioxide 28 Anion Gap 9 L BUN 22 H Creatinine 0.7 L Est GFR ( Amer) > 60 Est GFR (Non-Af Amer) > 60 Random Glucose 131 H Calcium 8.4 L Phosphorus 2.9 Magnesium 2.2 Total Bilirubin 0.4 AST 68 H ALT 33 Alkaline Phosphatase 99 Total Protein 5.6 L Albumin 2.9 L Globulin 2.7 Albumin/Globulin Ratio 1.1 Radiology Impressions: Radiology Impressions Chest X-Ray 04/25/18 06:00 Impression: Lines and tubes in stable position. Moderate venous congestion. Patchy bibasilar airspace opacities. Small left and trace right pleural effusion. Cardiomegaly. Critical Care Progress Note - Nutrition Nutrition: Nutrition Category Date Time Status NPO Diet [DIET] Diets 04/13/18 Dinner Active Assessment/Plan - Assessment and Plan (Free Text) Plan: Above patient seen and examined at bedside. vitals reveiwed Patient was on propofol ggt -will d/c propofol -Off pressors -Hypoxic brain injury: continue to monitor -anoxic brain injury/seizures: controlled -continue ng tube feeds -Patient's neurological exam off all sedation reveals, babinski up b/l, patient able to move both upper extremitites, biting on ET tube, responsive to noxiouc stimuli -contineu dvt/pud ppx -prognosis guarded -Goals of care to be discussed with family today - Date & Time Date: 04/25/18 Time: 17:08
[2018-04-25] MEDS: Albuterol-Ipratrop 3 mg / 0.5 (3 ml) UD INH SCH ×3 (12:00→20:46)
--- NOTE | 2018-04-25 14:01 | CP.PCM.PN ---
Subjective - Date & Time of Evaluation Date of Evaluation: 04/25/18 Time of Evaluation: 13:25 - Subjective Subjective: f/u dysphagia No RB, melena, Hematuria, hemoptysis, wheeze, hematemasis Objective - Vital Signs/Intake and Output Vital Signs (last 24 hours): Temp Pulse Resp BP Pulse Ox 99 F 80 20 123/79 100 04/25/18 04:00 04/25/18 06:00 04/25/18 06:00 04/25/18 10:00 04/25/18 06:00 Intake and Output: 04/25/18 04/25/18 06:59 18:59 Intake Total 1268.7 115 Output Total 630 Balance 638.7 115 - Medications Medications: Current Medications Acetaminophen (Tylenol 650mg/20.3ml Solution Ud) 650 mg PO Q6 PRN PRN Reason: Temperaure >100.4 Last Admin: 04/22/18 06:02 Dose: 650 mg Albuterol/Ipratropium (Duoneb 3 Mg/0.5 Mg (3 Ml) Ud) 3 ml INH RQ4 ROBERT Last Admin: 04/25/18 12:00 Dose: 3 ml Aspirin (Aspirin Chewable) 81 mg PO DAILY [facility] Last Admin: 04/25/18 09:07 Dose: 81 mg Chlordiazepoxide (Librium) 75 mg PO Q6H ROBERT Last Admin: 04/25/18 10:51 Dose: 75 mg Heparin Sodium (Porcine) (Heparin) 5,000 units SC Q8 ROBERT Last Admin: 04/25/18 05:13 Dose: 5,000 units Valproate Sodium 1,000 mg/ (Sodium Chloride) 110 mls @ 100 mls/hr IVPB Q12H ROBERT Last Admin: 04/25/18 05:14 Dose: 100 mls/hr Lacosamide 100 mg/ Sodium (Chloride) 60 mls @ 100 mls/hr IVPB Q12H ROBERT Last Admin: 04/25/18 08:34 Dose: 100 mls/hr Insulin Aspart (Novolog) 0 unit SC Q6 [facility]; Protocol Last Admin: 04/25/18 12:13 Dose: Not Given Levothyroxine Sodium (Synthroid) 75 mcg PO DAILY@0630 [facility] Last Admin: 04/25/18 05:48 Dose: 75 mcg Lorazepam (Ativan) 2 mg IVP Q4H PRN PRN Reason: Agitation Methylprednisolone (Solu-Medrol) 40 mg IVP Q6H ROBERT Morphine Sulfate (Morphine) 2 mg IVP Q4 PRN PRN Reason: Pain, severe (8-10) Pantoprazole Sodium (Protonix Susp) 40 mg GT DAILY [facility] Last Admin: 04/25/18 09:07 Dose: 40 mg Rosuvastatin Calcium (Crestor) 5 mg PO HS [facility] Last Admin: 04/24/18 21:12 Dose: 5 mg - Labs Labs: 04/25/18 06:10 04/25/18 06:10 PT 13.1 SECONDS (9.7-12.2) H 04/23/18 04:20 INR 1.2 04/23/18 04:20 APTT 30 SECONDS (21-34) 04/23/18 04:20 - Respiratory Exam Respiratory Exam: Clear to Ausculation Bilateral - Cardiovascular Exam Cardiovascular Exam: RRR - GI/Abdominal Exam GI & Abdominal Exam: Soft, Normal Bowel Sounds. absent: Tenderness, Mass - Neurological Exam Neurological Exam: absent: Alert, Awake Assessment and Plan (1) Dysphagia Assessment & Plan: Anoxia. s/p trache/. Now undergoing video EEG. FAMILY IS DISCUSSING FURTHER TREATMENT APPROACH AND PEG. Let us know if family requests PEG. Status: Acute (2) Anoxic brain injury Status: Acute (3) Cardiac arrest Status: Acute (4) Leukocytosis Status: Acute (5) STEMI (ST elevation myocardial infarction) Status: Acute (6) Transaminitis Assessment & Plan: improving Status: Acute
[2018-04-25] MEDS: MethylPREDNISolone 40 mg Vial IVP SCH ×2 (16:08→21:33)
--- NOTE | 2018-04-25 16:24 | CP.PCM.PN ---
Subjective - Date & Time of Evaluation Date of Evaluation: 04/25/18 Time of Evaluation: 16:00 - Subjective Subjective: Medical Attending Note: Patient seen and examined at bedside. Family is not present at bedside. Patient is undergoing 3rd video EEG at bedside. Patient does withdraw to pain-->moves both lower extremities to pain and upper extremities to pain and breathes over vent. Patient started on Librium by ICU for concern for withdrawal for opiate. Patent received methadone 10mg, 20mg earlie. Patient Patient is on Valproate IV, Librium, and Vimpat. Patient is off Profol as of 930AM this morning. Objective - Vital Signs/Intake and Output Vital Signs (last 24 hours): Temp Pulse Resp BP Pulse Ox 98.7 F 63 18 90/59 L 93 L 04/25/18 12:00 04/25/18 15:00 04/25/18 15:00 04/25/18 15:00 04/25/18 15:00 Intake and Output: 04/25/18 04/25/18 06:59 18:59 Intake Total 1268.7 115 Output Total 630 Balance 638.7 115 - Medications Medications: Current Medications Acetaminophen (Tylenol 650mg/20.3ml Solution Ud) 650 mg PO Q6 PRN PRN Reason: Temperaure >100.4 Last Admin: 04/22/18 06:02 Dose: 650 mg Albuterol/Ipratropium (Duoneb 3 Mg/0.5 Mg (3 Ml) Ud) 3 ml INH RQ4 [facility] Last Admin: 04/25/18 12:00 Dose: 3 ml Aspirin (Aspirin Chewable) 81 mg PO DAILY [facility] Last Admin: 04/25/18 09:07 Dose: 81 mg Chlordiazepoxide (Librium) 25 mg PO Q6H [facility] Last Admin: 04/25/18 16:09 Dose: 25 mg Heparin Sodium (Porcine) (Heparin) 5,000 units SC Q8 [facility] Last Admin: 04/25/18 16:00 Dose: 5,000 units Valproate Sodium 1,000 mg/ (Sodium Chloride) 110 mls @ 100 mls/hr IVPB Q12H [facility] Last Admin: 04/25/18 05:14 Dose: 100 mls/hr Lacosamide 100 mg/ Sodium (Chloride) 60 mls @ 100 mls/hr IVPB Q12H [facility] Last Admin: 04/25/18 08:34 Dose: 100 mls/hr Insulin Aspart (Novolog) 0 unit SC Q6 [facility]; Protocol Last Admin: 04/25/18 12:13 Dose: Not Given Levothyroxine Sodium (Synthroid) 75 mcg PO DAILY@0630 [facility] Last Admin: 04/25/18 05:48 Dose: 75 mcg Lorazepam (Ativan) 2 mg IVP Q4H PRN PRN Reason: Agitation Methylprednisolone (Solu-Medrol) 40 mg IVP Q6H [facility] Last Admin: 04/25/18 16:08 Dose: 40 mg Morphine Sulfate (Morphine) 2 mg IVP Q4 PRN PRN Reason: Pain, severe (8-10) Pantoprazole Sodium (Protonix Susp) 40 mg GT DAILY [facility] Last Admin: 04/25/18 09:07 Dose: 40 mg Rosuvastatin Calcium (Crestor) 5 mg PO HS [facility] Last Admin: 04/24/18 21:12 Dose: 5 mg - Labs Labs: 04/25/18 06:10 04/25/18 06:10 PT 13.1 SECONDS (9.7-12.2) H 04/23/18 04:20 INR 1.2 04/23/18 04:20 APTT 30 SECONDS (21-34) 04/23/18 04:20 - Constitutional Appears: Non-toxic, No Acute Distress - Head Exam Head Exam: NORMAL INSPECTION - Eye Exam Eye Exam: EOMI - ENT Exam ENT Exam: Mucous Membranes Moist - Respiratory Exam Respiratory Exam: Decreased Breath Sounds. absent: Rales, Rhonchi Additional comments: intubated on vent - Cardiovascular Exam Cardiovascular Exam: REGULAR RHYTHM, +S1, +S2 - GI/Abdominal Exam GI & Abdominal Exam: Soft, Normal Bowel Sounds. absent: Distended, Firm, Guarding, Rigid, Tenderness, Rebound - Extremities Exam Extremities Exam: absent: Pedal Edema, Tenderness Additional comments: prevalon boots b/l - Neurological Exam Neurological Exam: Altered - Skin Skin Exam: Normal Color, Warm Assessment and Plan (1) Cardiac arrest Status: Acute (2) Anoxic brain injury Status: Acute (3) STEMI (ST elevation myocardial infarction) Status: Acute (4) Leukocytosis Status: Acute (5) Transaminitis Status: Acute (6) Myoclonic jerking Status: Acute (7) Prophylactic measure Status: Acute Attending/Attestation - Attestation I have personally seen and examined this patient.: Yes I have fully participated in the care of the patient.: Yes I have reviewed all pertinent clinical information, including history, physical exam and plan: Yes Notes (Text): 43 year old male who was admitted after cardiopulmonary arrest. Anoxic brain injury is suspected. He is currently intubated and on Vimpat, off Propofol and Valproic Acid and librium prn icu for concern of opioid withdrawal. Hypothermic protocol was completed 04/15/18. patient is going 3rd video eeg off profolol. Neurology Dr. Snider is on board and has informed Son Jer and of poor prognosis during course of hospitalization. Dr. Escobar has went over the most recent MRI with the patient's son at bedside yesterday. Patient's code status is presently Full Code. In review of prior notes, the ICU doctors have spoken with family extensively and is currently in the process of arranging transfer to [facility] as per the family's request. transfer was denied per insurance. Case management is aware. I spoke with patient's son yesterday. we had quite of bit of discussion, he voices his dad has told his and mother if he was ever a vegetable that he would never want being on machine etc. Son reports he feels pressure to make the right choice in regards to the patient. I re-emphasized to the patient's son, as the acting healthy proxy that his role is to act according to the wishes of the patient and i spoke nursing, charge nurse as well, and advised aircraft part assembler for spiritual sport. Patient family is not present at bedside Chest xray (04/25/18): lines and tubes in stable position, moderate venous congestion. patchy bibasilar airspace opacities. small left and trace right pleural effusion. 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 Further clinical correlation advised. No definite lobar brain infarction identified. EEG presently on going 1). Video EEG (04/18/18): This is an abnormal video EEG. Shows GPEDS, and BIPLEDs, indicative of severe anoxic injury. There are no seizures at this time. 2). CT Head (04/18/18): Probable diffuse hypoxic insult with diffuse cerebral edema and loss of pablo/white matter differentiation. NO evidence of herniation. NO focal vascular territorial infarct. Chronis pansinusitis. Mild nonspecific bilateral mastoid effusion. 3). EEG (04/15/18): This is an abnormal EEG record that demonstrate the presence of severe non specific diffuse disturbance of cortical activity, this is keeping with a diffuse pablo matter dysfunction, these findings are not specific. There were rhythmic muscle artifact seen, most likely mycolonus, this are usually seen in hypoxic brain insults, please correlate clinically. No seizures. Patient is not in status epilepticus 4). CT Head (04/15/18): Extensive diffuse homogeneous appearance of the brain parenchyma with loss of the cortico-medullary distinction and on diminution of cerebral sulci. Findings consistent with sequela diffuse hypoxia. 5). CT Head (04/14/18): Little interval change in mild diffuse effacement of cortical sulci and indistinct pablo-white matter differentiation related to hypoxic-anoxic insult with the stated clinical history. 6). CT Head (04/13/18): No acute intracranial hemorrhage. There is mild homogeneous appearance of the brain parenchyma with subtle indistinct appearance of the cortico-medullary junction. Findings could represent mild diffuse cerebral edema related to hypoxia however clinical correlation suggested. He is on the following medications: Lacosamide 100 mg IV Q12H Propofol Drip d/c 04/25 Valproate 1,000 mg IV Q12H Levothyroxine 75 mcg via OGT 1x/day Protonix 40 mg gt Q24H Heparin 5,000 Units SC Q8H Aspart ISS Q6H Jevity @ 50 ml/hr Solumedrol 40mg IVP Q6H Librium taper ROS is not possible due to patient unresponsiveness General: Intubated on vent with NGT, no jerking movements HEENT: no doll eyes Cardio: NS1 and NS2, NO M/R/G Resp: Breath sounds, soft nontender, noguarding GI: Central Obesity, BS are decreased in all 4 quadrants, Soft, no guarding Ext: Pulses are strong and equal upper and lower extremities, NO edema, Capillary refill is 2 seconds, prevalon boots Neuro: exam is not possible, patient appears comatose Assessments: 1). Anoxic Brain Injury Status: Acute * neuro on board * sedation orders noted * see imaging as above 2). Acute Respiratory Failure Status: Acute * intubated and sedated 3). Cardiac Arrest Status: Acute * Cardiology on board * Normal coronaries per cath 4). Myoclonic Movements Status: Acute * see sedation orders as over 5). Leukocytosis-->normalized Status: Acute * Blood cultures from 04/19/17: negative * urine culture (04/19/18): no growth * Urine culture (04/20/18): gram negative andrew * tylenol prn for fever * procalcitonin: 0.38 (04/13/18) * official report 04/18/18 venous doppler: none 6). Hx Hypothyroidism Status: Chronic * patient is on Synthroid 75mcg PO am 7) prophylactic measure * protonix 40mg gt daily * Heparin 5000unit subq 8H * Poor prognosis * PICC line
[2018-04-26] MEDS: Albuterol-Ipratrop 3 mg / 0.5 (3 ml) UD INH SCH ×6 (00:42→20:42)
[2018-04-26] MEDS: MethylPREDNISolone 40 mg Vial IVP SCH ×4 (03:06→22:00)
[2018-04-26] MEDS: Valproate 1,000 MG in Sodium Chloride 0.9% 100 ML IVPB SCH ×2 (05:20→17:27)
[2018-04-26] MEDS: (Novolog) Insulin Aspart, Recombinant 100 u/ml 10 ml vial SC SCH ×3 (05:21→18:19)
[2018-04-26] MEDS: Levothyroxine 75 MCG TAB PO SCH (05:32)
[2018-04-26 05:49] LABS: ABG ALLEN TEST POS; ARTERIAL BLOOD GAS HEMOGLOBIN 12.9 g/dL (11.7-17.4); ARTERIAL BLOOD GAS PCO2 33 mm/Hg (35-45); ARTERIAL BLOOD GAS PH 7.48 (7.35-7.45); ARTERIAL BLOOD GAS PO2 63 mm/Hg (80-100); ARTERIAL BLOOD GAS TCO2 25.6 mmol/L (22-28)
[2018-04-26 06:01] LABS: BASO # 0.1 K/uL (0.0-0.2); BASO % 0.3 % (0.0-2.0); HEMOGLOBIN 12.4 g/dL (12.0-18.0); LYMPH # 0.7 K/uL (1.0-4.3); LYMPH % 4.1 % (20.0-40.0); MEAN CELL VOLUME 94.5 fL (80.0-94.0); MEAN CORPUSCULAR HEMOGLOBIN 31.8 pg (27.0-31.0); MEAN CORPUSCULAR HGB CONC 33.6 g/dL (33.0-37.0); MEAN PLATELET VOLUME 8.3 fL (7.2-11.7); MONO # 0.6 K/uL (0.0-0.8); MONO % 3.6 % (0.0-10.0); NEUT # 15.4 K/uL (1.8-7.0); PLATELET COUNT 353 K/uL (130-400); RBC 3.89 Mil/uL (4.40-5.90); RED CELL DISTRIBUTION WIDTH 12.8 % (11.5-14.5); WHITE BLOOD COUNT 16.8 K/uL (4.8-10.8)
[2018-04-26 06:29] LABS: ALB/GLOB RATIO 1.1 (1.0-2.1); ALBUMIN 3.2 g/dL (3.5-5.0); ALT/SGPT 31 U/L (21-72); AST/SGOT 62 U/L (17-59); BLOOD UREA NITROGEN 34 mg/dL (9-20); CALCIUM 9.3 mg/dl (8.6-10.4); GFR NON-AFRICAN AMERICAN > 60
[2018-04-26] MEDS: SODIUM CHLORIDE 0.9% IVPB SCH ×2 (08:13→20:12)
[2018-04-26] MEDS: LACOSAMIDE IVPB SCH ×2 (08:13→20:12)
[2018-04-26 08:44] LABS: ANISOCYTOSIS SLIGHT; BANDS 3 % (0-2); LYMPHOCYTE 6 % (20-40); MONOCYTE 4 % (0-10); NEUTROPHIL 87 % (50-75); PLATELET ESTIMATE NORMAL (NORMAL); TOTAL CELLS COUNTED 100; TOXIC GRANULATION PRESENT
[2018-04-26 08:45] LABS: LARGE PLATELETS PRESENT; POLYCHROMIC SLIGHT
[2018-04-26] MEDS: Pantoprazole 40 mg Susp UD GT SCH (09:28)
[2018-04-26] MEDS ORDERED: Sodium Chloride 0.9% 1,000 ML IV ONE (10:04)
[2018-04-26] MEDS ORDERED: Albumin Human 25% (12.5 gm/50 ml) IV ONE (10:05)
--- NOTE | 2018-04-26 10:05 | CP.PCM.PN ---
Subjective - Date & Time of Evaluation Date of Evaluation: 04/26/18 Time of Evaluation: 10:00 - Subjective Subjective: Medical Attending note: Patient seen and examined. No family present at bedside. Video EEG in progress. Patient's blood pressure hypotensive; ordered for fluid bolus. unable to ROS secondary to clinical condition. Objective - Vital Signs/Intake and Output Vital Signs (last 24 hours): Temp Pulse Resp BP Pulse Ox 99.6 F 88 24 102/63 97 04/26/18 08:00 04/26/18 08:00 04/26/18 08:00 04/26/18 08:00 04/26/18 08:00 Intake and Output: 04/26/18 04/26/18 06:59 18:59 Intake Total 1150 100 Output Total 500 0 Balance 650 100 - Medications Medications: Current Medications Acetaminophen (Tylenol 650mg/20.3ml Solution Ud) 650 mg PO Q6 PRN PRN Reason: Temperaure >100.4 Last Admin: 04/22/18 06:02 Dose: 650 mg Albuterol/Ipratropium (Duoneb 3 Mg/0.5 Mg (3 Ml) Ud) 3 ml INH RQ4 [facility] Last Admin: 04/26/18 08:15 Dose: 3 ml Aspirin (Aspirin Chewable) 81 mg PO DAILY [facility] Last Admin: 04/26/18 09:28 Dose: 81 mg Chlordiazepoxide (Librium) 10 mg PO Q8 PRN PRN Reason: Agitation Heparin Sodium (Porcine) (Heparin) 5,000 units SC Q8 [facility] Last Admin: 04/26/18 07:40 Dose: 5,000 units Valproate Sodium 1,000 mg/ (Sodium Chloride) 110 mls @ 100 mls/hr IVPB Q12H [facility] Last Admin: 04/26/18 05:20 Dose: 100 mls/hr Lacosamide 100 mg/ Sodium (Chloride) 60 mls @ 100 mls/hr IVPB Q12H [facility] Last Admin: 04/26/18 08:13 Dose: 100 mls/hr Levetiracetam 1,500 mg/ (Dextrose) 115 mls @ 420 mls/hr IVPB Q12H [facility] Last Admin: 04/26/18 04:46 Dose: 420 mls/hr Insulin Aspart (Novolog) 0 unit SC Q6 [facility]; Protocol Last Admin: 04/26/18 05:21 Dose: 2 unit Levothyroxine Sodium (Synthroid) 75 mcg PO DAILY@0630 [facility] Last Admin: 04/26/18 05:32 Dose: 75 mcg Lorazepam (Ativan) 2 mg IVP Q4H PRN PRN Reason: Agitation Methylprednisolone (Solu-Medrol) 40 mg IVP Q6H [facility] Last Admin: 04/26/18 09:29 Dose: 40 mg Morphine Sulfate (Morphine) 2 mg IVP Q4 PRN PRN Reason: Pain, severe (8-10) Pantoprazole Sodium (Protonix Susp) 40 mg GT DAILY [facility] Last Admin: 04/26/18 09:28 Dose: 40 mg Rosuvastatin Calcium (Crestor) 5 mg PO HS [facility] Last Admin: 04/25/18 21:33 Dose: 5 mg - Labs Labs: 04/26/18 05:54 04/26/18 05:54 PT 13.1 SECONDS (9.7-12.2) H 04/23/18 04:20 INR 1.2 04/23/18 04:20 APTT 30 SECONDS (21-34) 04/23/18 04:20 - Constitutional Appears: Non-toxic, No Acute Distress - Head Exam Head Exam: NORMAL INSPECTION - ENT Exam ENT Exam: Mucous Membranes Dry - Respiratory Exam Respiratory Exam: NORMAL BREATHING PATTERN Additional comments: decreased breathe sounds intubated on vent - Cardiovascular Exam Cardiovascular Exam: REGULAR RHYTHM, +S1, +S2 - GI/Abdominal Exam GI & Abdominal Exam: Soft, Normal Bowel Sounds. absent: Guarding, Rigid, Tenderness - Extremities Exam Additional comments: prevalon boots Assessment and Plan (1) Cardiac arrest Status: Acute (2) Anoxic brain injury Status: Acute (3) STEMI (ST elevation myocardial infarction) Status: Acute (4) Leukocytosis Status: Acute (5) Transaminitis Status: Acute (6) Myoclonic jerking Status: Acute (7) Prophylactic measure Status: Acute Attending/Attestation - Attestation I have personally seen and examined this patient.: Yes I have fully participated in the care of the patient.: Yes I have reviewed all pertinent clinical information, including history, physical exam and plan: Yes Notes (Text): 43 year old male who was admitted after cardiopulmonary arrest. Anoxic brain injury is suspected. He is currently intubated and on Vimpat,Propofol and Valproic Acid. Hypothermic protocol was completed 04/15/18. Neurology Dr. Snider is on board and has informed Son Jer and of poor prognosis during course of hospitalization. Dr. Escobar has went over the most recent MRI with the patient's son at bedside. Patient's code status is presently Full Code. In review of prior notes, the ICU doctors have spoken with family extensively and is currently in the process of arranging transfer to [facility] as per the family's request. transfer was denied per insurance. Case management is aware. I spoke with patient's son on 04/24/18. we had quite of bit of discussion, he voices his dad has told his and mother if he was ever a vegetable that he would never want being on machine etc. Son reports he feels pressure to make the right choice in regards to the patient. I re-emphasized to the patient's son, as the acting healthy proxy that his role is to act according to the wishes of the patient and i spoke nursing, charge nurse as well, and advised cloth opener hand for spiritual sport. Patient is on Librium and Methadone per ICU to cover for opioid withdrawal. 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 Further clinical correlation advised. No definite lobar brain infarction identified. EEG presently on going 1). Video EEG (04/18/18): This is an abnormal video EEG. Shows GPEDS, and BIPLEDs, indicative of severe anoxic injury. There are no seizures at this time. 2). CT Head (04/18/18): Probable diffuse hypoxic insult with diffuse cerebral edema and loss of pablo/white matter differentiation. NO evidence of herniation. NO focal vascular territorial infarct. Chronis pansinusitis. Mild nonspecific bilateral mastoid effusion. 3). EEG (04/15/18): This is an abnormal EEG record that demonstrate the presence of severe non specific diffuse disturbance of cortical activity, this is keeping with a diffuse pablo matter dysfunction, these findings are not specific. There were rhythmic muscle artifact seen, most likely mycolonus, this are usually seen in hypoxic brain insults, please correlate clinically. No seizures. Patient is not in status epilepticus 4). CT Head (04/15/18): Extensive diffuse homogeneous appearance of the brain parenchyma with loss of the cortico-medullary distinction and on diminution of cerebral sulci. Findings consistent with sequela diffuse hypoxia. 5). CT Head (04/14/18): Little interval change in mild diffuse effacement of cortical sulci and indistinct pablo-white matter differentiation related to hypoxic-anoxic insult with the stated clinical history. 6). CT Head (04/13/18): No acute intracranial hemorrhage. There is mild homogeneous appearance of the brain parenchyma with subtle indistinct appearance of the cortico-medullary junction. Findings could represent mild diffuse cerebral edema related to hypoxia however clinical correlation suggested. He is on the following medications: Lacosamide 100 mg IV Q12H Valproate 1,000 mg IV Q12H Vancomycin 1 gm IV Q24H Levothyroxine 75 mcg via OGT 1x/day Protonix 40 mg gt Q24H Heparin 5,000 Units SC Q8H Aspart ISS Q6H Jevity @ 50 ml/hr Keppra 1500mg [id number] ROS is not possible due to patient unresponsiveness General: Intubated on vent with NGT, no jerking movements HEENT: no doll eyes Cardio: NS1 and NS2, NO M/R/G Resp: Breath sounds, decreased, soft nontender GI: Central Obesity, BS are decreased in all 4 quadrants, Soft, no guarding Ext: Pulses are strong and equal upper and lower extremities, NO edema, Capillary refill is 2 seconds Neuro: exam is not possible, patient appears comatose Assessments: 1). Anoxic Brain Injury Status: Acute * neuro on board * sedation orders noted * see imaging as above 2). Acute Respiratory Failure Status: Acute * intubated and sedated 3). Cardiac Arrest Status: Acute * Cardiology on board * Normal coronaries per cath 4). Myoclonic Movements Status: Acute * see sedation orders as over 5). Leukocytosis Status: Acute * Secondary to IV steroids started 04/25/18 * Blood cultures from 04/19/17: negative * urine culture (04/19/18): no growth * Urine culture (04/20/18): gram negative andrew (<10,000 CFU) * on vancomcyin * tylenol prn for fever * procalcitonin: 0.38 (04/13/18) * official report 04/18/18 venous doppler: none 6). Hx Hypothyroidism Status: Chronic * patient is on Synthroid 75mcg PO am 7) prophylactic measure * protonix 40mg gt daily * Heparin 5000unit subq 8H * Poor prognosis * PICC line
--- NOTE | 2018-04-26 10:49 | RAD ---
Chest x-ray single frontal view HISTORY: Ventilator. Comparison: 04/25/2018 FINDINGS: Lines and tubes in stable position. Moderate to severe venous congestion. Prominent patchy increased markings at the lung bases. Moderate left and small right pleural effusion. Cardiomegaly. Degenerative changes in the spine and shoulders. Impression: Lines and tubes in stable position. Moderate to severe venous congestion. Prominent patchy increased markings at the lung bases. Moderate left and small right pleural effusion. Cardiomegaly.
--- NOTE | 2018-04-26 13:54 | CP.PCM.PN ---
Subjective - Date & Time of Evaluation Date of Evaluation: 04/26/18 Time of Evaluation: 13:50 - Subjective Subjective: Patient seen and examined at bedside. Patient afebrile, HR normal (low), MAp near 60s, toelrated CPAP Objective - Vital Signs/Intake and Output Vital Signs (last 24 hours): Temp Pulse Resp BP Pulse Ox 98.5 F 72 18 90/48 L 95 04/26/18 12:00 04/26/18 13:00 04/26/18 13:00 04/26/18 12:51 04/26/18 13:00 Intake and Output: 04/26/18 04/26/18 06:59 18:59 Intake Total 1150 1550 Output Total 500 0 Balance 650 1550 - Medications Medications: Current Medications Acetaminophen (Tylenol 650mg/20.3ml Solution Ud) 650 mg PO Q6 PRN PRN Reason: Temperaure >100.4 Last Admin: 04/22/18 06:02 Dose: 650 mg Albumin Human (Albumin Human 25% (12.5 Gm/50 Ml)) 25 gm IV Q6H [facility] Stop: 04/27/18 04:16 Albuterol/Ipratropium (Duoneb 3 Mg/0.5 Mg (3 Ml) Ud) 3 ml INH RQ4 [facility] Last Admin: 04/26/18 11:12 Dose: 3 ml Aspirin (Aspirin Chewable) 81 mg PO DAILY [facility] Last Admin: 04/26/18 09:28 Dose: 81 mg Chlordiazepoxide (Librium) 10 mg PO Q8 PRN PRN Reason: Agitation Valproate Sodium 1,000 mg/ (Sodium Chloride) 110 mls @ 100 mls/hr IVPB Q12H [facility] Last Admin: 04/26/18 05:20 Dose: 100 mls/hr Lacosamide 100 mg/ Sodium (Chloride) 60 mls @ 100 mls/hr IVPB Q12H [facility] Last Admin: 04/26/18 08:13 Dose: 100 mls/hr Levetiracetam 1,500 mg/ (Dextrose) 115 mls @ 420 mls/hr IVPB Q12H [facility] Last Admin: 04/26/18 04:46 Dose: 420 mls/hr Insulin Aspart (Novolog) 0 unit SC Q6 [facility]; Protocol Last Admin: 04/26/18 13:32 Dose: 2 unit Levothyroxine Sodium (Synthroid) 75 mcg PO DAILY@0630 [facility] Last Admin: 04/26/18 05:32 Dose: 75 mcg Methylprednisolone (Solu-Medrol) 40 mg IVP Q6H [facility] Last Admin: 04/26/18 09:29 Dose: 40 mg Pantoprazole Sodium (Protonix Susp) 40 mg GT DAILY [facility] Last Admin: 04/26/18 09:28 Dose: 40 mg Rosuvastatin Calcium (Crestor) 5 mg PO HS [facility] Last Admin: 04/25/18 21:33 Dose: 5 mg - Labs Labs: 04/26/18 05:54 04/26/18 05:54 PT 13.1 SECONDS (9.7-12.2) H 04/23/18 04:20 INR 1.2 04/23/18 04:20 APTT 30 SECONDS (21-34) 04/23/18 04:20 - Constitutional Appears: Well, Toxic - Head Exam Head Exam: ATRAUMATIC - Eye Exam Pupil Exam: Fixed, Irregular - ENT Exam ENT Exam: Mucous Membranes Moist - Respiratory Exam Respiratory Exam: Clear to Ausculation Bilateral, NORMAL BREATHING PATTERN. absent: Rhonchi, Wheezes, Respiratory Distress, Stridor - Cardiovascular Exam Cardiovascular Exam: REGULAR RHYTHM, +S1, +S2 - GI/Abdominal Exam GI & Abdominal Exam: Soft, Normal Bowel Sounds - Extremities Exam Extremities Exam: Normal Capillary Refill, Pedal Edema - Neurological Exam Neurological Exam: Altered - Skin Skin Exam: Normal Color, Warm Assessment and Plan - Assessment and Plan (Free Text) Assessment: -Anoxic brain injury:continue to keep spo2 >92 and MAP >65 -Seizures: off propofol ggt, tolerating oral methadone and oral librium PRN + AEDs -tolerating Ng tube feeds -slight hypotension:suspect autonomic dysfunction, infuse albumin, (decrease librium dosage) -continue dvt/pud ppx -Patient remains hemodynamically stable -Patient tolerated CPAP trials, Fio2 50% -continuous EEG in progress as librium being titrated down. -continue to monitor -cc time 34 minutes
[2018-04-26] MEDS: Albumin Human 25% (12.5 gm/50 ml) IV SCH ×3 (15:04→22:01)
--- NOTE | 2018-04-26 20:37 | CP.PCM.PN ---
Subjective - Date & Time of Evaluation Date of Evaluation: 04/24/18 Time of Evaluation: 14:00 - Subjective Subjective: Patient on ventilator No response to commands Physical examination - Constitutional Appears: No Acute Distress - Eye Exam Eye Exam: PERRL - Respiratory Exam Additional comments: intubated and sedated - Cardiovascular Exam Cardiovascular Exam: REGULAR RHYTHM - GI/Abdominal Exam GI & Abdominal Exam: Soft - Neurological Exam Additional comments: Objective - Vital Signs/Intake and Output Vital Signs (last 24 hours): Temp Pulse Resp BP Pulse Ox 98.1 F 76 18 111/65 96 04/26/18 20:00 04/26/18 19:00 04/26/18 19:00 04/26/18 18:27 04/26/18 19:00 Intake and Output: 04/26/18 04/27/18 18:59 06:59 Intake Total 2100 250 Output Total 400 0 Balance 1700 250 - Medications Medications: Current Medications Acetaminophen (Tylenol 650mg/20.3ml Solution Ud) 650 mg PO Q6 PRN PRN Reason: Temperaure >100.4 Last Admin: 04/22/18 06:02 Dose: 650 mg Albumin Human (Albumin Human 25% (12.5 Gm/50 Ml)) 25 gm IV Q6H [facility] Stop: 04/27/18 04:16 Last Admin: 04/26/18 19:09 Dose: 25 gm Albuterol/Ipratropium (Duoneb 3 Mg/0.5 Mg (3 Ml) Ud) 3 ml INH RQ4 [facility] Last Admin: 04/26/18 16:54 Dose: 3 ml Aspirin (Aspirin Chewable) 81 mg PO DAILY [facility] Last Admin: 04/26/18 09:28 Dose: 81 mg Chlordiazepoxide (Librium) 10 mg PO Q8 PRN PRN Reason: Agitation Heparin Sodium (Porcine) (Heparin) 5,000 units SC Q8 [facility] Valproate Sodium 1,000 mg/ (Sodium Chloride) 110 mls @ 100 mls/hr IVPB Q12H [facility] Last Admin: 04/26/18 17:27 Dose: 100 mls/hr Lacosamide 100 mg/ Sodium (Chloride) 60 mls @ 100 mls/hr IVPB Q12H [facility] Last Admin: 04/26/18 20:12 Dose: 100 mls/hr Levetiracetam 1,500 mg/ (Dextrose) 115 mls @ 420 mls/hr IVPB Q12H [facility] Last Admin: 04/26/18 16:46 Dose: 420 mls/hr Insulin Aspart (Novolog) 0 unit SC Q6 [facility]; Protocol Last Admin: 04/26/18 18:19 Dose: Not Given Levothyroxine Sodium (Synthroid) 75 mcg PO DAILY@0630 [facility] Last Admin: 04/26/18 05:32 Dose: 75 mcg Methylprednisolone (Solu-Medrol) 40 mg IVP Q6H [facility] Last Admin: 04/26/18 16:46 Dose: 40 mg Pantoprazole Sodium (Protonix Susp) 40 mg GT DAILY [facility] Last Admin: 04/26/18 09:28 Dose: 40 mg Rosuvastatin Calcium (Crestor) 5 mg PO HS [facility] Last Admin: 04/25/18 21:33 Dose: 5 mg - Labs Labs: 04/26/18 05:54 04/26/18 05:54 PT 13.1 SECONDS (9.7-12.2) H 04/23/18 04:20 INR 1.2 04/23/18 04:20 APTT 30 SECONDS (21-34) 04/23/18 04:20 Assessment and Plan - Assessment and Plan (Free Text) Assessment: Assessments: 1). Anoxic Brain Injury Status: Acute * neuro on board * sedation orders noted * see imaging as above 2). Acute Respiratory Failure Status: Acute * intubated and sedated 3). Cardiac Arrest Status: Acute * Cardiology on board * Normal coronaries per cath 4). Myoclonic Movements Status: Acute * see sedation orders as over 5). Leukocytosis Status: Acute * Secondary to IV steroids started 04/25/18 * Blood cultures from 04/19/17: negative * urine culture (04/19/18): no growth * Urine culture (04/20/18): gram negative andrew (<10,000 CFU) * on vancomcyin * tylenol prn for fever * procalcitonin: 0.38 (04/13/18) * official report 04/18/18 venous doppler: none 6). Hx Hypothyroidism Status: Chronic * patient is on Synthroid 75mcg PO am 7) prophylactic measure * protonix 40mg gt daily * Heparin 5000unit subq 8H * Poor prognosis * PICC line
--- NOTE | 2018-04-26 20:38 | CP.PCM.PN ---
Subjective - Date & Time of Evaluation Date of Evaluation: 04/26/18 Time of Evaluation: 09:10 - Subjective Subjective: Patient on ventilator No response to commands Physical examination - Constitutional Appears: No Acute Distress - Eye Exam Eye Exam: PERRL - Respiratory Exam Additional comments: intubated and sedated - Cardiovascular Exam Cardiovascular Exam: REGULAR RHYTHM - GI/Abdominal Exam GI & Abdominal Exam: Soft - Neurological Exam Additional comments: Objective - Vital Signs/Intake and Output Vital Signs (last 24 hours): Temp Pulse Resp BP Pulse Ox 98.1 F 76 18 111/65 96 04/26/18 20:00 04/26/18 19:00 04/26/18 19:00 04/26/18 18:27 04/26/18 19:00 Intake and Output: 04/26/18 04/27/18 18:59 06:59 Intake Total 2100 250 Output Total 400 0 Balance 1700 250 - Medications Medications: Current Medications Acetaminophen (Tylenol 650mg/20.3ml Solution Ud) 650 mg PO Q6 PRN PRN Reason: Temperaure >100.4 Last Admin: 04/22/18 06:02 Dose: 650 mg Albumin Human (Albumin Human 25% (12.5 Gm/50 Ml)) 25 gm IV Q6H [facility] Stop: 04/27/18 04:16 Last Admin: 04/26/18 19:09 Dose: 25 gm Albuterol/Ipratropium (Duoneb 3 Mg/0.5 Mg (3 Ml) Ud) 3 ml INH RQ4 [facility] Last Admin: 04/26/18 16:54 Dose: 3 ml Aspirin (Aspirin Chewable) 81 mg PO DAILY [facility] Last Admin: 04/26/18 09:28 Dose: 81 mg Chlordiazepoxide (Librium) 10 mg PO Q8 PRN PRN Reason: Agitation Heparin Sodium (Porcine) (Heparin) 5,000 units SC Q8 [facility] Valproate Sodium 1,000 mg/ (Sodium Chloride) 110 mls @ 100 mls/hr IVPB Q12H [facility] Last Admin: 04/26/18 17:27 Dose: 100 mls/hr Lacosamide 100 mg/ Sodium (Chloride) 60 mls @ 100 mls/hr IVPB Q12H [facility] Last Admin: 04/26/18 20:12 Dose: 100 mls/hr Levetiracetam 1,500 mg/ (Dextrose) 115 mls @ 420 mls/hr IVPB Q12H [facility] Last Admin: 04/26/18 16:46 Dose: 420 mls/hr Insulin Aspart (Novolog) 0 unit SC Q6 [facility]; Protocol Last Admin: 04/26/18 18:19 Dose: Not Given Levothyroxine Sodium (Synthroid) 75 mcg PO DAILY@0630 [facility] Last Admin: 04/26/18 05:32 Dose: 75 mcg Methylprednisolone (Solu-Medrol) 40 mg IVP Q6H [facility] Last Admin: 04/26/18 16:46 Dose: 40 mg Pantoprazole Sodium (Protonix Susp) 40 mg GT DAILY [facility] Last Admin: 04/26/18 09:28 Dose: 40 mg Rosuvastatin Calcium (Crestor) 5 mg PO HS [facility] Last Admin: 04/25/18 21:33 Dose: 5 mg - Labs Labs: 04/26/18 05:54 04/26/18 05:54 PT 13.1 SECONDS (9.7-12.2) H 04/23/18 04:20 INR 1.2 04/23/18 04:20 APTT 30 SECONDS (21-34) 04/23/18 04:20 Assessment and Plan - Assessment and Plan (Free Text) Assessment: Assessments: 1). Anoxic Brain Injury Status: Acute * neuro on board * sedation orders noted * see imaging as above 2). Acute Respiratory Failure Status: Acute * intubated and sedated 3). Cardiac Arrest Status: Acute * Cardiology on board * Normal coronaries per cath 4). Myoclonic Movements Status: Acute * see sedation orders as over 5). Leukocytosis Status: Acute * Secondary to IV steroids started 04/25/18 * Blood cultures from 04/19/17: negative * urine culture (04/19/18): no growth * Urine culture (04/20/18): gram negative andrew (<10,000 CFU) * on vancomcyin * tylenol prn for fever * procalcitonin: 0.38 (04/13/18) * official report 04/18/18 venous doppler: none 6). Hx Hypothyroidism Status: Chronic * patient is on Synthroid 75mcg PO am 7) prophylactic measure * protonix 40mg gt daily * Heparin 5000unit subq 8H * Poor prognosis * PICC line
--- NOTE | 2018-04-26 20:38 | CP.PCM.PN ---
Subjective - Date & Time of Evaluation Date of Evaluation: 04/25/18 Time of Evaluation: 16:05 - Subjective Subjective: Patient on ventilator No response to commands Physical examination - Constitutional Appears: No Acute Distress - Eye Exam Eye Exam: PERRL - Respiratory Exam Additional comments: intubated and sedated - Cardiovascular Exam Cardiovascular Exam: REGULAR RHYTHM - GI/Abdominal Exam GI & Abdominal Exam: Soft - Neurological Exam Additional comments: Objective - Vital Signs/Intake and Output Vital Signs (last 24 hours): Temp Pulse Resp BP Pulse Ox 98.1 F 76 18 111/65 96 04/26/18 20:00 04/26/18 19:00 04/26/18 19:00 04/26/18 18:27 04/26/18 19:00 Intake and Output: 04/26/18 04/27/18 18:59 06:59 Intake Total 2100 250 Output Total 400 0 Balance 1700 250 - Medications Medications: Current Medications Acetaminophen (Tylenol 650mg/20.3ml Solution Ud) 650 mg PO Q6 PRN PRN Reason: Temperaure >100.4 Last Admin: 04/22/18 06:02 Dose: 650 mg Albumin Human (Albumin Human 25% (12.5 Gm/50 Ml)) 25 gm IV Q6H [facility] Stop: 04/27/18 04:16 Last Admin: 04/26/18 19:09 Dose: 25 gm Albuterol/Ipratropium (Duoneb 3 Mg/0.5 Mg (3 Ml) Ud) 3 ml INH RQ4 [facility] Last Admin: 04/26/18 16:54 Dose: 3 ml Aspirin (Aspirin Chewable) 81 mg PO DAILY [facility] Last Admin: 04/26/18 09:28 Dose: 81 mg Chlordiazepoxide (Librium) 10 mg PO Q8 PRN PRN Reason: Agitation Heparin Sodium (Porcine) (Heparin) 5,000 units SC Q8 [facility] Valproate Sodium 1,000 mg/ (Sodium Chloride) 110 mls @ 100 mls/hr IVPB Q12H [facility] Last Admin: 04/26/18 17:27 Dose: 100 mls/hr Lacosamide 100 mg/ Sodium (Chloride) 60 mls @ 100 mls/hr IVPB Q12H [facility] Last Admin: 04/26/18 20:12 Dose: 100 mls/hr Levetiracetam 1,500 mg/ (Dextrose) 115 mls @ 420 mls/hr IVPB Q12H [facility] Last Admin: 04/26/18 16:46 Dose: 420 mls/hr Insulin Aspart (Novolog) 0 unit SC Q6 [facility]; Protocol Last Admin: 04/26/18 18:19 Dose: Not Given Levothyroxine Sodium (Synthroid) 75 mcg PO DAILY@0630 [facility] Last Admin: 04/26/18 05:32 Dose: 75 mcg Methylprednisolone (Solu-Medrol) 40 mg IVP Q6H [facility] Last Admin: 04/26/18 16:46 Dose: 40 mg Pantoprazole Sodium (Protonix Susp) 40 mg GT DAILY [facility] Last Admin: 04/26/18 09:28 Dose: 40 mg Rosuvastatin Calcium (Crestor) 5 mg PO HS [facility] Last Admin: 04/25/18 21:33 Dose: 5 mg - Labs Labs: 04/26/18 05:54 04/26/18 05:54 PT 13.1 SECONDS (9.7-12.2) H 04/23/18 04:20 INR 1.2 04/23/18 04:20 APTT 30 SECONDS (21-34) 04/23/18 04:20 Assessment and Plan - Assessment and Plan (Free Text) Assessment: Assessments: 1). Anoxic Brain Injury Status: Acute * neuro on board * sedation orders noted * see imaging as above 2). Acute Respiratory Failure Status: Acute * intubated and sedated 3). Cardiac Arrest Status: Acute * Cardiology on board * Normal coronaries per cath 4). Myoclonic Movements Status: Acute * see sedation orders as over 5). Leukocytosis Status: Acute * Secondary to IV steroids started 04/25/18 * Blood cultures from 04/19/17: negative * urine culture (04/19/18): no growth * Urine culture (04/20/18): gram negative andrew (<10,000 CFU) * on vancomcyin * tylenol prn for fever * procalcitonin: 0.38 (04/13/18) * official report 04/18/18 venous doppler: none 6). Hx Hypothyroidism Status: Chronic * patient is on Synthroid 75mcg PO am 7) prophylactic measure * protonix 40mg gt daily * Heparin 5000unit subq 8H * Poor prognosis * PICC line
[2018-04-27] MEDS: (Novolog) Insulin Aspart, Recombinant 100 u/ml 10 ml vial SC SCH ×4 (00:04→17:52)
[2018-04-27] MEDS: Albuterol-Ipratrop 3 mg / 0.5 (3 ml) UD INH SCH ×6 (00:43→20:08)
[2018-04-27] MEDS: MethylPREDNISolone 40 mg Vial IVP SCH ×4 (03:59→21:39)
[2018-04-27] MEDS: Albumin Human 25% (12.5 gm/50 ml) IV SCH (03:59)
[2018-04-27 06:02] LABS: ABG ALLEN TEST POS; ARTERIAL BLOOD GAS HEMOGLOBIN 11.1 g/dL (11.7-17.4); ARTERIAL BLOOD GAS O2 SAT 97.5 % (95-98); ARTERIAL BLOOD GAS PCO2 34 mm/Hg (35-45); ARTERIAL BLOOD GAS PH 7.49 (7.35-7.45); ARTERIAL BLOOD GAS PO2 77 mm/Hg (80-100); ARTERIAL BLOOD GAS TCO2 26.9 mmol/L (22-28)
[2018-04-27] MEDS: Valproate 1,000 MG in Sodium Chloride 0.9% 100 ML IVPB SCH ×2 (06:10→17:51)
[2018-04-27] MEDS: Levothyroxine 75 MCG TAB PO SCH (06:17)
[2018-04-27 06:35] LABS: BASO % 0.1 % (0.0-2.0); HEMOGLOBIN 11.3 g/dL (12.0-18.0); LYMPH # 0.5 K/uL (1.0-4.3); LYMPH % 4.1 % (20.0-40.0); MEAN CELL VOLUME 93.9 fL (80.0-94.0); MEAN CORPUSCULAR HEMOGLOBIN 32.2 pg (27.0-31.0); MEAN CORPUSCULAR HGB CONC 34.3 g/dL (33.0-37.0); MEAN PLATELET VOLUME 7.8 fL (7.2-11.7); MONO # 0.6 K/uL (0.0-0.8); MONO % 4.6 % (0.0-10.0); NEUT % 91.2 % (50.0-75.0); PLATELET COUNT 338 K/uL (130-400); RBC 3.51 Mil/uL (4.40-5.90); WHITE BLOOD COUNT 12.1 K/uL (4.8-10.8)
[2018-04-27 06:41] LABS: ALB/GLOB RATIO 1.8 (1.0-2.1); ALBUMIN 4.2 g/dL (3.5-5.0); ALT/SGPT 31 U/L (21-72); AST/SGOT 50 U/L (17-59); BLOOD UREA NITROGEN 32 mg/dL (9-20); CALCIUM 9.3 mg/dl (8.6-10.4); GFR NON-AFRICAN AMERICAN > 60
--- NOTE | 2018-04-27 08:30 | CP.PCM.PN ---
Subjective - Date & Time of Evaluation Date of Evaluation: 04/27/18 Time of Evaluation: 08:20 - Subjective Subjective: Medical attending note: Patient seen, examined this morning. No family members present at bedside. unable to ROS secondary to clinical condition. Objective - Vital Signs/Intake and Output Vital Signs (last 24 hours): Temp Pulse Resp BP Pulse Ox 98.5 F 68 18 113/71 96 04/27/18 04:00 04/27/18 08:00 04/27/18 08:00 04/27/18 07:27 04/27/18 08:00 Intake and Output: 04/27/18 04/27/18 06:59 18:59 Intake Total 850 50 Output Total 700 Balance 150 50 - Medications Medications: Current Medications Acetaminophen (Tylenol 650mg/20.3ml Solution Ud) 650 mg PO Q6 PRN PRN Reason: Temperaure >100.4 Last Admin: 04/22/18 06:02 Dose: 650 mg Albuterol/Ipratropium (Duoneb 3 Mg/0.5 Mg (3 Ml) Ud) 3 ml INH RQ4 [facility] Last Admin: 04/27/18 08:05 Dose: 3 ml Aspirin (Aspirin Chewable) 81 mg PO DAILY [facility] Last Admin: 04/26/18 09:28 Dose: 81 mg Chlordiazepoxide (Librium) 10 mg PO Q8 PRN PRN Reason: Agitation Heparin Sodium (Porcine) (Heparin) 5,000 units SC Q8 [facility] Last Admin: 04/27/18 06:10 Dose: 5,000 units Valproate Sodium 1,000 mg/ (Sodium Chloride) 110 mls @ 100 mls/hr IVPB Q12H [facility] Last Admin: 04/27/18 06:10 Dose: 100 mls/hr Lacosamide 100 mg/ Sodium (Chloride) 60 mls @ 100 mls/hr IVPB Q12H [facility] Last Admin: 04/26/18 20:12 Dose: 100 mls/hr Levetiracetam 1,500 mg/ (Dextrose) 115 mls @ 420 mls/hr IVPB Q12H [facility] Last Admin: 04/27/18 05:43 Dose: 420 mls/hr Insulin Aspart (Novolog) 0 unit SC Q6 [facility]; Protocol Last Admin: 04/27/18 06:10 Dose: 2 unit Levothyroxine Sodium (Synthroid) 75 mcg PO DAILY@0630 [facility] Last Admin: 04/27/18 06:17 Dose: 75 mcg Methylprednisolone (Solu-Medrol) 40 mg IVP Q6H [facility] Last Admin: 04/27/18 03:59 Dose: 40 mg Pantoprazole Sodium (Protonix Susp) 40 mg GT DAILY [facility] Last Admin: 04/26/18 09:28 Dose: 40 mg Rosuvastatin Calcium (Crestor) 5 mg PO HS [facility] Last Admin: 04/26/18 22:00 Dose: 5 mg - Labs Labs: 04/27/18 06:20 04/27/18 06:20 PT 13.1 SECONDS (9.7-12.2) H 04/23/18 04:20 INR 1.2 04/23/18 04:20 APTT 30 SECONDS (21-34) 04/23/18 04:20 - Constitutional Appears: Non-toxic, No Acute Distress - Head Exam Head Exam: NORMAL INSPECTION Additional comments: intubated - Respiratory Exam Respiratory Exam: Decreased Breath Sounds Additional comments: intubated - Cardiovascular Exam Cardiovascular Exam: REGULAR RHYTHM, +S1, +S2 - GI/Abdominal Exam GI & Abdominal Exam: Soft, Hypoactive Bowel Sounds. absent: Distended, Firm, Guarding, Rigid, Tenderness, Rebound - Extremities Exam Additional comments: prevalon boots Assessment and Plan (1) Cardiac arrest Status: Acute (2) Anoxic brain injury Status: Acute (3) STEMI (ST elevation myocardial infarction) Status: Acute (4) Leukocytosis Status: Acute (5) Transaminitis Status: Acute (6) Myoclonic jerking Status: Acute (7) Prophylactic measure Status: Acute Attending/Attestation - Attestation I have personally seen and examined this patient.: Yes I have fully participated in the care of the patient.: Yes I have reviewed all pertinent clinical information, including history, physical exam and plan: Yes Notes (Text): 43 year old male who was admitted after cardiopulmonary arrest. Anoxic brain injury is suspected. He is currently intubated and on Vimpat,Propofol and Valpro ic Acid. Hypothermic protocol was completed 04/15/18. Neurology Dr. Snider is on board and has informed Son Jer and of poor prognosis during course of hospitalization. Dr. Escobar has went over the most recent MRI with the patient's son at bedside. Patient has completed video eeg yesterday. Patient's code status is presently Full Code. In review of prior notes, the ICU doctors have spoken with family extensively and is currently in the process of arranging transfer to [facility] as per the family's request. transfer was denied per insurance. Case management is aware. I spoke with patient's son on 04/24/18. we had quite of bit of discussion, he voices his dad has told his and mother if he was ever a vegetable that he would never want being on machine etc. Son reports he feels pressure to make the right choice in regards to the patient. I re-emphasized to the patient's son, as the acting healthy proxy that his role is to act according to the wishes of the patient and i spoke nursing, charge nurse as well, and advised donation worker for spiritual sport. Patient is on Librium and Methadone per ICU to cover for opioid withdrawal. 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 Further clinical correlation advised. No definite lobar brain infarction identified. EEG presently on going 1). Video EEG (04/18/18): This is an abnormal video EEG. Shows GPEDS, and BIPLEDs, indicative of severe anoxic injury. There are no seizures at this time. 2). CT Head (04/18/18): Probable diffuse hypoxic insult with diffuse cerebral edema and loss of pablo/white matter differentiation. NO evidence of herniation. NO focal vascular territorial infarct. Chronis pansinusitis. Mild nonspecific bilateral mastoid effusion. 3). EEG (04/15/18): This is an abnormal EEG record that demonstrate the presence of severe non specific diffuse disturbance of cortical activity, this is keeping with a diffuse pablo matter dysfunction, these findings are not specific. There were rhythmic muscle artifact seen, most likely mycolonus, this are usually seen in hypoxic brain insults, please correlate clinically. No seizures. Patient is not in status epilepticus 4). CT Head (04/15/18): Extensive diffuse homogeneous appearance of the brain parenchyma with loss of the cortico-medullary distinction and on diminution of cerebral sulci. Findings consistent with sequela diffuse hypoxia. 5). CT Head (04/14/18): Little interval change in mild diffuse effacement of cortical sulci and indistinct pablo-white matter differentiation related to hypoxic-anoxic insult with the stated clinical history. 6). CT Head (04/13/18): No acute intracranial hemorrhage. There is mild homogeneous appearance of the brain parenchyma with subtle indistinct appearance of the cortico-medullary junction. Findings could represent mild diffuse cerebral edema related to hypoxia however clinical correlation suggested. He is on the following medications: Lacosamide 100 mg IV Q12H Valproate 1,000 mg IV Q12H Vancomycin 1 gm IV Q24H Levothyroxine 75 mcg via OGT 1x/day Protonix 40 mg gt Q24H Heparin 5,000 Units SC Q8H Aspart ISS Q6H Jevity @ 50 ml/hr Keppra 1500mg [id number] ROS is not possible due to patient unresponsiveness General: Intubated on vent with NGT, no jerking movements HEENT: no doll eyes, twitching eye movements Cardio: NS1 and NS2, NO M/R/G Resp: Breath sounds, decreased, soft nontender GI: Central Obesity, BS are decreased in all 4 quadrants, Soft, no guarding Ext: Pulses are strong and equal upper and lower extremities, NO edema, Capillary refill is 2 seconds Neuro: exam is not possible, patient appears comatose, negative babinski, Assessments: 1). Anoxic Brain Injury Status: Acute * neuro on board * sedation orders noted * see imaging as above 2). Acute Respiratory Failure Status: Acute * intubated and sedated 3). Cardiac Arrest Status: Acute * Cardiology on board * Normal coronaries per cath 4). Myoclonic Movements Status: Acute * see sedation orders as over 5). Leukocytosis Status: Acute * Secondary to IV steroids started 04/25/18 * Blood cultures from 04/19/17: negative * urine culture (04/19/18): no growth * Urine culture (04/20/18): gram negative andrew (<10,000 CFU) * on vancomcyin * tylenol prn for fever * procalcitonin: 0.38 (04/13/18) * official report 3/8/19 venous doppler: none 6). Hx Hypothyroidism Status: Chronic * patient is on Synthroid 75mcg PO am * elevated TSH today (8) 7) prophylactic measure * protonix 40mg gt daily * Heparin 5000unit subq 8H * Poor prognosis * PICC line Discussed with ICU, plan for terminal extubation. Family has also spoken with neurology today as well. i spoke with donation worker who will help support family with this decision making.
[2018-04-27] MEDS: LACOSAMIDE IVPB SCH ×2 (08:33→20:00)
[2018-04-27] MEDS: SODIUM CHLORIDE 0.9% IVPB SCH ×2 (08:33→20:00)
[2018-04-27 09:16] LABS: ANISOCYTOSIS SLIGHT; LYMPHOCYTE 5 % (20-40); MONOCYTE 5 % (0-10); NEUTROPHIL 90 % (50-75); PLATELET ESTIMATE NORMAL (NORMAL); TOTAL CELLS COUNTED 100
[2018-04-27 09:17] LABS: POLYCHROMIC SLIGHT
[2018-04-27] MEDS: Pantoprazole 40 mg Susp UD GT SCH (10:26)
--- NOTE | 2018-04-27 13:28 | CP.PCM.PN ---
Subjective - Date & Time of Evaluation Date of Evaluation: 04/27/18 Time of Evaluation: 13:26 - Subjective Subjective: Neurology progress note I evaluated, examined the patient and reviewed the VEEG with the family. The patient's EEG is flat and no significant cortical activity noted. This corresponds to the MRI that I discussed with the family before. Clinically, the patient does not appear to have any cortical activity. Objective - Vital Signs/Intake and Output Vital Signs (last 24 hours): Temp Pulse Resp BP Pulse Ox 98.3 F 75 18 122/72 94 L 04/27/18 12:00 04/27/18 13:00 04/27/18 13:00 04/27/18 12:27 04/27/18 13:00 Intake and Output: 04/27/18 04/27/18 06:59 18:59 Intake Total 850 400 Output Total 700 Balance 150 400 - Medications Medications: Current Medications Acetaminophen (Tylenol 650mg/20.3ml Solution Ud) 650 mg PO Q6 PRN PRN Reason: Temperaure >100.4 Last Admin: 04/22/18 06:02 Dose: 650 mg Albuterol/Ipratropium (Duoneb 3 Mg/0.5 Mg (3 Ml) Ud) 3 ml INH RQ4 [facility] Last Admin: 04/27/18 08:05 Dose: 3 ml Aspirin (Aspirin Chewable) 81 mg PO DAILY [facility] Last Admin: 04/27/18 10:26 Dose: 81 mg Chlordiazepoxide (Librium) 10 mg PO Q8 PRN PRN Reason: Agitation Heparin Sodium (Porcine) (Heparin) 5,000 units SC Q8 [facility] Last Admin: 04/27/18 06:10 Dose: 5,000 units Valproate Sodium 1,000 mg/ (Sodium Chloride) 110 mls @ 100 mls/hr IVPB Q12H [facility] Last Admin: 04/27/18 06:10 Dose: 100 mls/hr Lacosamide 100 mg/ Sodium (Chloride) 60 mls @ 100 mls/hr IVPB Q12H [facility] Last Admin: 04/27/18 08:33 Dose: 100 mls/hr Levetiracetam 1,500 mg/ (Dextrose) 115 mls @ 420 mls/hr IVPB Q12H [facility] Last Admin: 04/27/18 05:43 Dose: 420 mls/hr Insulin Aspart (Novolog) 0 unit SC Q6 [facility]; Protocol Last Admin: 04/27/18 12:15 Dose: 2 unit Levothyroxine Sodium (Synthroid) 75 mcg PO DAILY@0630 [facility] Last Admin: 04/27/18 06:17 Dose: 75 mcg Methylprednisolone (Solu-Medrol) 40 mg IVP Q6H [facility] Last Admin: 04/27/18 10:26 Dose: 40 mg Pantoprazole Sodium (Protonix Susp) 40 mg GT DAILY [facility] Last Admin: 04/27/18 10:26 Dose: 40 mg Rosuvastatin Calcium (Crestor) 5 mg PO HS [facility] Last Admin: 04/26/18 22:00 Dose: 5 mg - Labs Labs: 04/27/18 06:20 04/27/18 06:20 PT 13.1 SECONDS (9.7-12.2) H 04/23/18 04:20 INR 1.2 04/23/18 04:20 APTT 30 SECONDS (21-34) 04/23/18 04:20 - Neurological Exam Neuro motor strength exam: Left Upper Extremity: 0, Right Upper Extremity: 0, Left Lower Extremity: 0, Right Lower Extremity: 0 Additional comments: GCS = 3T Assessment and Plan (1) Anoxic brain injury Assessment & Plan: The injury is too severe for any meaningful recovery. The EEG is flat and the MRI of the brain showed severe injury. No further recommendations from a neurological standpoint . Status: Acute
--- NOTE | 2018-04-27 14:56 | CP.PCM.PN ---
Subjective - Date & Time of Evaluation Date of Evaluation: 04/27/18 Time of Evaluation: 14:56 - Subjective Subjective: No acute events Objective - Vital Signs/Intake and Output Vital Signs (last 24 hours): Temp Pulse Resp BP Pulse Ox 98.3 F 65 18 91/52 L 95 04/27/18 12:00 04/27/18 14:00 04/27/18 14:00 04/27/18 13:27 04/27/18 14:00 Intake and Output: 04/27/18 04/27/18 06:59 18:59 Intake Total 850 400 Output Total 700 Balance 150 400 - Medications Medications: Current Medications Acetaminophen (Tylenol 650mg/20.3ml Solution Ud) 650 mg PO Q6 PRN PRN Reason: Temperaure >100.4 Last Admin: 04/22/18 06:02 Dose: 650 mg Albuterol/Ipratropium (Duoneb 3 Mg/0.5 Mg (3 Ml) Ud) 3 ml INH RQ4 [facility] Last Admin: 04/27/18 12:06 Dose: Not Given Aspirin (Aspirin Chewable) 81 mg PO DAILY [facility] Last Admin: 04/27/18 10:26 Dose: 81 mg Chlordiazepoxide (Librium) 10 mg PO Q8 PRN PRN Reason: Agitation Heparin Sodium (Porcine) (Heparin) 5,000 units SC Q8 [facility] Last Admin: 04/27/18 14:19 Dose: 5,000 units Valproate Sodium 1,000 mg/ (Sodium Chloride) 110 mls @ 100 mls/hr IVPB Q12H [facility] Last Admin: 04/27/18 06:10 Dose: 100 mls/hr Lacosamide 100 mg/ Sodium (Chloride) 60 mls @ 100 mls/hr IVPB Q12H [facility] Last Admin: 04/27/18 08:33 Dose: 100 mls/hr Levetiracetam 1,500 mg/ (Dextrose) 115 mls @ 420 mls/hr IVPB Q12H [facility] Last Admin: 04/27/18 05:43 Dose: 420 mls/hr Insulin Aspart (Novolog) 0 unit SC Q6 [facility]; Protocol Last Admin: 04/27/18 12:15 Dose: 2 unit Levothyroxine Sodium (Synthroid) 75 mcg PO DAILY@0630 [facility] Last Admin: 04/27/18 06:17 Dose: 75 mcg Methylprednisolone (Solu-Medrol) 40 mg IVP Q6H [facility] Last Admin: 04/27/18 10:26 Dose: 40 mg Pantoprazole Sodium (Protonix Susp) 40 mg GT DAILY [facility] Last Admin: 04/27/18 10:26 Dose: 40 mg Rosuvastatin Calcium (Crestor) 5 mg PO HS [facility] Last Admin: 04/26/18 22:00 Dose: 5 mg - Labs Labs: 04/27/18 06:20 04/27/18 06:20 PT 13.1 SECONDS (9.7-12.2) H 04/23/18 04:20 INR 1.2 04/23/18 04:20 APTT 30 SECONDS (21-34) 04/23/18 04:20 - Head Exam Head Exam: ATRAUMATIC - ENT Exam ENT Exam: Mucous Membranes Moist - Respiratory Exam Respiratory Exam: NORMAL BREATHING PATTERN - Cardiovascular Exam Cardiovascular Exam: REGULAR RHYTHM, +S1, +S2 - GI/Abdominal Exam GI & Abdominal Exam: Soft, Normal Bowel Sounds - Extremities Exam Extremities Exam: Normal Inspection - Neurological Exam Neurological Exam: Altered - Skin Skin Exam: Warm Assessment and Plan - Assessment and Plan (Free Text) Assessment: -Anoxic brain injury:continue to keep spo2 >92 and MAP >65 -Seizures: tolerating oral methadone and oral librium PRN + AEDs -tolerating Ng tube feeds -hypotension:suspect autonomic dysfunction, infuse albumin, (decrease librium dosage) -continue dvt/pud ppx -Patient remains hemodynamically stable -EEG reveals - no significant brain activity -Terminal extubation as per Family request d/w son
[2018-04-27] MEDS ORDERED: Morphine Sulfate 250 MG in Dextrose 5% In Water 240 ML IV PRN (16:12)
[2018-04-27] MEDS ORDERED: Morphine 100 MG in Sodium Chloride 0.9% 90 ML IV PRN (17:00)
[2018-04-27 19:28] VITALS: O2SAT 90
[2018-04-27 21:59] VITALS: BP 83/50; PULSE 74; RESP 14
--- NOTE | 2018-04-27 22:36 | CP.PCM.PRO ---
Pronouncement of Note - Clinical Findings Physical Exam: No Response Verbal/Painful Stimuli, Absent Peripheral Puls es{Carotid & Femoral}, Absent Heart & Breath Sounds, No Pupillary Light Reflex, No Corneal Reflex, Pupils Fixed & Dilated, Absence of Vital Signs - Pronouncement Time Time of Pronouncement of : 22:22 - Notifications Pronouncement Notifications: Family Notified, Atending Notified Production Generalist Notified: No - Autopsy Autopsy Requested: Yes - [place] [id number]
[2018-04-27 22:45] VITALS: TEMP 98.5
--- NOTE | 2018-04-27 22:51 | CP.PCM.DIS ---
Provider - Provider Date of Admission: 04/13/18 10:59 Attending physician: Maggie Aguilar DO Consults: 04/13/18 12:15 Neurology Consult Routine Comment: Consulting Provider: Jaciel Escobar Consulting Physician: Jaciel Escobar Reason for Consult: code heart unresponsive s/p cath with vasospasm. seizures. 04/13/18 12:22 Cardiology Consult Routine Comment: Consulting Provider: Ezio Brady Consulting Physician: Ezio Brady Reason for Consult: code heart 04/14/18 14:24 Nephrology Consult Routine Comment: OLIGURIA Consulting Provider: Angeli Azul Consulting Physician: Angeli Azul Reason for Consult: OLIGURIA 04/15/18 08:20 Palliative Care [Nursing Referral for Palliative Care] Routine Comment: Physician Instructions: Please help family to determine wishes for care Reason For Exam: Anoxic Brain Injury Likely 04/15/18 11:25 Palliative Care Consult Routine Comment: Consulting Provider: Imelda Hinojosa Physician Instructions: TO ana laura Riddle MD Reason For Exam: Goals of care 04/21/18 13:37 Physician Consult Routine Comment: Consulting Provider: Eliazar Slater Consulting Physician: Eliazar Slater Reason for Consult: Trach/PEG 04/22/18 11:52 Gastroenterology Consult Routine Comment: Consulting Provider: Mook Alexander Consulting Physician: Mook Alexander Reason for Consult: Peg placement Time Spent in preparation of Discharge (in minutes): 15 Diagnosis - Discharge Diagnosis (1) Status: Acute Comment: terminal extubation per family request. family updated throughout the course of hospitalization regarding patient by specialists and hospitalist service (2) DNR (do not resuscitate) Status: Acute Comment: terminal extubation per family request in accordance to patient's wishes and in light of patient's neurologic status (3) Cardiac arrest Status: Acute Comment: code heart. code freeze. cardiology consulted. underwent cardiac cath normal coronaries. echo completed (4) Anoxic brain injury Status: Acute Comment: neurology on board. patient underwent series of imaging including ct, brain mris. Patient underwent series of video eegs as well. Patient has have several antieliptic and sedative therapies to control myoclonic jerking as well (5) STEMI (ST elevation myocardial infarction) Status: Acute Comment: noted code heart. cardiac cath clean coronaries (6) Leukocytosis Status: Acute Comment: patient placed on empiric antibiotic therapy at start of admission. cultures negative. procalcitonin low (7) Transaminitis Status: Acute Comment: likely secondary acute phase reactant/shock liver secondary to cardiac arrest (8) Myoclonic jerking Status: Acute Comment: severe anoxic brain injury (9) Prophylactic measure Status: Acute Hospital Course - Lab Results Lab Results: Micro Results 04/19/18 08:30 Blood-Venous Blood Culture - Final NO GROWTH AFTER 5 DAYS 04/19/18 08:30 Blood-Venous Gram Stain - Final TEST NOT PERFORMED 04/19/18 08:00 Blood-Venous Blood Culture - Final NO GROWTH AFTER 5 DAYS 04/19/18 08:00 Blood-Venous Gram Stain - Final TEST NOT PERFORMED 04/20/18 08:27 Urine,Campuzano Urine Culture - Final Gram Negative Mickey 04/19/18 08:30 Urine,Catheterized Urine Culture - Final No Growth (<1,000 CFU/ML) 04/13/18 14:40 Blood Blood Culture - Final NO GROWTH AFTER 5 DAYS 04/13/18 14:40 Blood Gram Stain - Final TEST NOT PERFORMED 04/13/18 14:30 Blood Blood Culture - Final NO GROWTH AFTER 5 DAYS 04/13/18 14:30 Blood Gram Stain - Final TEST NOT PERFORMED 04/14/18 16:51 Urine,Campuzano Urine Culture - Final No Growth (<1,000 CFU/ML) 04/13/18 14:44 Nose MRSA Culture (Admit) - Final MRSA NOT DETECTED 04/13/18 13:19 Urine,Catheterized Urine Culture - Final No Growth (<1,000 CFU/ML) Most Recent Lab Values WBC 12.1 K/uL (4.8-10.8) H 04/27/18 06:20 RBC 3.51 Mil/uL (4.40-5.90) L 04/27/18 06:20 Hgb 11.3 g/dL (12.0-18.0) L 04/27/18 06:20 Hct 33.0 % (35.0-51.0) L 04/27/18 06:20 MCV 93.9 fL (80.0-94.0) 04/27/18 06:20 MCH 32.2 pg (27.0-31.0) H 04/27/18 06:20 MCHC 34.3 g/dL (33.0-37.0) 04/27/18 06:20 RDW 13.0 % (11.5-14.5) 04/27/18 06:20 Plt Count 338 K/uL (130-400) 04/27/18 06:20 MPV 7.8 fL (7.2-11.7) 04/27/18 06:20 Neut % (Auto) 91.2 % (50.0-75.0) H 04/27/18 06:20 Lymph % (Auto) 4.1 % (20.0-40.0) L 04/27/18 06:20 Caldwell % (Auto) 4.6 % (0.0-10.0) 04/27/18 06:20 Eos % (Auto) 0.0 % (0.0-4.0) 04/27/18 06:20 Baso % (Auto) 0.1 % (0.0-2.0) 04/27/18 06:20 Neut # (Auto) 11.0 K/uL (1.8-7.0) H 04/27/18 06:20 Lymph # (Auto) 0.5 K/uL (1.0-4.3) L 04/27/18 06:20 Caldwell # (Auto) 0.6 K/uL (0.0-0.8) 04/27/18 06:20 Eos # (Auto) 0.0 K/uL (0.0-0.7) 04/27/18 06:20 Baso # (Auto) 0.0 K/uL (0.0-0.2) 04/27/18 06:20 Neutrophils % (Manual) 90 % (50-75) H 04/27/18 06:20 Band Neutrophils % 3 % (0-2) H 04/26/18 05:54 Lymphocytes % (Manual) 5 % (20-40) L 04/27/18 06:20 Reactive Lymphs % 3 % (0-0) H 04/23/18 04:20 Monocytes % (Manual) 5 % (0-10) 04/27/18 06:20 Eosinophils % (Manual) 4 % (0-4) 04/23/18 04:20 Hypersegmented Polys Present 04/14/18 22:09 Smudge Cells Present 04/14/18 22:09 Toxic Granulation Present 04/26/18 05:54 Platelet Estimate Normal (NORMAL) 04/27/18 06:20 Large Platelets Present 04/26/18 05:54 RBC Morphology Normal 04/23/18 04:20 Polychromasia Slight 04/27/18 06:20 Poikilocytosis (manual Slight 04/14/18 22:09 Anisocytosis (manual) Slight 04/27/18 06:20 Microcytosis (manual) Slight 04/14/18 22:09 Spherocytes Slight 04/14/18 16:51 PT 13.1 SECONDS (9.7-12.2) H 04/23/18 04:20 INR 1.2 04/23/18 04:20 APTT 30 SECONDS (21-34) 04/23/18 04:20 D-Dimer, Quantitative 2708 ng/mlDDU (0-243) H 04/13/18 13:29 Puncture Site L rad 04/27/18 05:31 pCO2 34 mm/Hg (35-45) L 04/27/18 05:31 pO2 77 mm/Hg (80-100) L 04/27/18 05:31 HCO3 27.0 mmol/L (21-28) 04/27/18 05:31 ABG pH 7.49 (7.35-7.45) H 04/27/18 05:31 ABG Total CO2 26.9 mmol/L (22-28) 04/27/18 05:31 ABG O2 Saturation 97.5 % (95-98) 04/27/18 05:31 ABG Base Excess 2.7 mmol/L (-2.0-3.0) 04/27/18 05:31 ABG Hemoglobin 11.1 g/dL (11.7-17.4) L 04/27/18 05:31 ABG Carboxyhemoglobin 1.6 % (0.5-1.5) H 04/27/18 05:31 POC ABG HHb (Measured) 2.4 % (0.0-5.0) 04/27/18 05:31 ABG Methemoglobin 1.0 % (0.0-3.0) 04/27/18 05:31 Jose Test Pos 04/27/18 05:31 ABG Potassium 3.7 mmol/L (3.6-5.2) 04/23/18 05:34 A-a O2 Difference 237.0 mm/Hg 04/27/18 05:31 Respiratory Index 3.1 04/27/18 05:31 Hgb O2 Saturation 95.0 % (95.0-98.0) 04/27/18 05:31 Sodium 137.0 mmol/l (132-148) 04/23/18 05:34 Chloride 108.0 mmol/L (98-107) H 04/23/18 05:34 Glucose 110 mg/dl (75-110) 04/23/18 05:34 Lactate 1.0 mmol/L (0.7-2.1) 04/23/18 05:34 Vent Mode Prvc 04/27/18 05:31 Mechanical Rate 18 04/27/18 05:31 FiO2 50.0 % 04/27/18 05:31 Tidal Volume 500 04/27/18 05:31 PEEP 5 04/27/18 05:31 Crit Value Called To Jennifer norman/rn 04/15/18 05:24 Crit Value Called By Mandie castano/rt 04/15/18 05:24 Crit Value Read Back Y 04/15/18 05:24 Blood Gas Notified Time 625 04/15/18 05:24 Sodium 141 mmol/L (132-148) 04/27/18 06:20 Potassium 4.3 mmol/L (3.6-5.2) 04/27/18 06:20 Chloride 105 mmol/L (98-107) 04/27/18 06:20 Carbon Dioxide 27 mmol/L (22-30) 04/27/18 06:20 Anion Gap 15 (10-20) 04/27/18 06:20 BUN 32 mg/dL (9-20) H 04/27/18 06:20 Creatinine 0.8 mg/dL (0.8-1.5) 04/27/18 06:20 Est GFR ( Amer) > 60 04/27/18 06:20 Est GFR (Non-Af Amer) > 60 04/27/18 06:20 POC Glucose (mg/dL) 147 mg/dL (65-110) H 04/21/18 18:11 Random Glucose 151 mg/dL (75-110) H 04/27/18 06:20 Hemoglobin A1c 5.8 % (4.2-6.5) 04/15/18 06:14 Calcium 9.3 mg/dl (8.6-10.4) 04/27/18 06:20 Phosphorus 2.6 mg/dL (2.5-4.5) 04/27/18 06:20 Magnesium 2.6 mg/dL (1.6-2.3) H 04/27/18 06:20 Total Bilirubin 0.6 mg/dL (0.2-1.3) 04/27/18 06:20 AST 50 U/L (17-59) 04/27/18 06:20 ALT 31 U/L (21-72) 04/27/18 06:20 Alkaline Phosphatase 74 U/L (38-126) 04/27/18 06:20 Lactate Dehydrogenase 1027 U/L (313-618) H 04/13/18 10:46 Total Creatine Kinase 765 U/L (55-170) H 04/13/18 20:02 CK-MB (Mass) 30.0 ng/mL (0.0-3.38) H 04/13/18 20:02 Troponin I 6.2100 ng/mL (0.00-0.120) H* 04/13/18 20:02 Total Protein 6.6 g/dL (6.3-8.3) 04/27/18 06:20 Albumin 4.2 g/dL (3.5-5.0) 04/27/18 06:20 Globulin 2.4 gm/dL (2.2-3.9) 04/27/18 06:20 Albumin/Globulin Ratio 1.8 (1.0-2.1) 04/27/18 06:20 Ethanolamine None detected 04/13/18 13:29 Procalcitonin 0.22 NG/ML (0.19-0.49) 04/21/18 08:37 TSH 3rd Generation 8.82 mIU/L (0.46-4.68) H 04/27/18 06:20 Arterial Blood Potassium 3.7 mmol/L (3.6-5.2) 04/23/18 05:34 Urine Color Christianne (YELLOW) 04/20/18 08:27 Urine Clarity Hazy (Clear) 04/20/18 08:27 Urine pH 5.0 (5.0-8.0) 04/20/18 08:27 Ur Specific Onley 1.030 (1.003-1.030) 04/20/18 08:27 Urine Protein 1+ mg/dL (NEGATIVE) H 04/20/18 08:27 Urine Glucose (UA) Normal mg/dL (Normal) 04/20/18 08:27 Urine Ketones Negative mg/dL (NEGATIVE) 04/20/18 08:27 Urine Blood 2+ (NEGATIVE) H 04/20/18 08:27 Urine Nitrate Negative (NEGATIVE) 04/20/18 08:27 Urine Bilirubin Negative (NEGATIVE) 04/20/18 08:27 Urine Urobilinogen 4.0 mg/dL (0.2-1.0) 04/20/18 08:27 Ur Leukocyte Esterase 2+ Ezra/uL (Negative) H 04/20/18 08:27 Urine WBC (Auto) 25 /hpf (0-5) H 04/20/18 08:27 Urine RBC (Auto) 160 /hpf (0-3) H 04/20/18 08:27 Ur Squamous Epith Cells < 1 /hpf (0-5) 04/13/18 13:19 Urine Bacteria Rare (<OCC) 04/20/18 08:27 Vancomycin Trough 5.5 ug/mL (5.0-10.0) 04/17/18 15:10 Urine Opiates Screen Positive (NEGATIVE) H 04/13/18 13:19 Urine Methadone Screen Negative (NEGATIVE) 04/13/18 13:19 Ur Barbiturates Screen Negative (NEGATIVE) 04/13/18 13:19 Valproic Acid 55.3 ug/mL (50.0-100.0) 04/23/18 04:20 Levetiracetam 24.6 mcg/mL 04/18/18 06:52 Ur Phencyclidine Scrn Negative (NEGATIVE) 04/13/18 13:19 Ur Amphetamines Screen Negative (NEGATIVE) 04/13/18 13:19 U Benzodiazepines Scrn Positive (NEGATIVE) 04/13/18 13:19 U Oth Cocaine Metabols Negative (NEGATIVE) 04/13/18 13:19 U Cannabinoids Screen Negative (NEGATIVE) 04/13/18 13:19 Toxicology Panel see note 04/13/18 13:29 Methyl Alcohol Level None detected 04/13/18 13:29 Isopropanol None detected 04/13/18 13:29 Acetone Level None detected 04/13/18 13:29 Hepatitis A IgM Ab Negative (NEGATIVE) 04/13/18 14:30 Hep Bs Antigen Negative (NEGATIVE) 04/13/18 14:30 Hep B Core IgM Ab Negative (NEGATIVE) 04/13/18 14:30 Hepatitis C Antibody Negative (NEGATIVE) 04/13/18 14:30 Blood Type O POSITIVE 04/13/18 10:53 Antibody Screen Negative 04/13/18 10:53 - Hospital Course Hospital Course: As per H&P "History obtained as per Dodie and , friend of patient. 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 Pt is a 41yo M with unknown PMH brought in by EMS after being found by a friend and coworker unresponsive in his car. Patient was in the parking lot of his workplace working on his car with the jordan up when he was approached by his friend. At about 9:40am, the patient seemed normal to his friend, they were talking and moving normally, did not appear in acute distress. He appeared to be working on his car. After getting some supplies, friend returned to find patient slumped over in the driver license agent's seat of the car with the car door open and window rolled down, music was on. He was unresponsive, breathing heavily, and his skin looked blue. He was foaming at the mouth as per the friend. He took the patient out of the car, tried to wake up friend but he was unresponsive. He called 911 and police came 10 minutes later. EMS was called. PD first responded and performed compressions until EMS arrived. 1 round of ACLS with epi was performed and ROSC was achieved, as per EMS. Pt was intubated and IO access was obtained in the field. Per party plan demonstrator, eyes appeared dilated. Skin appeared cyanotic, mottled, and patient was not responsive. No shock was delivered. Rhythm strip appeared to show ST depressions. Patient was transported to the ED. Per party plan demonstrator, patient became bradycardic and was given dose of epi. In the ED, nurse reported that patient has pulse entire time. As per ED physician, there was about 15-20 minutes total of down time. In the ED, patient had myotonic jerks. Versed and cerebrex were started. SxH: unknown FamH: unknown SocH: social issues, unspecified stressors as per friend. from , marital problems. 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 Allergies: NKDA Meds: unknown PMD: unkown" 43 year old male who was admitted to the intensive care unit following cardiopulmonary arrest with subsequent Anoxic brain injury, requiring intubation, sedation and several antiellieptic medications. Patient underwent cardiac cath noted normal coronaries suspected vasospasm secondary to prolonged hypoxemia. unclear etiology to cardiac arrest, Patient underwent code freeze protocol in the intensive care unit. Cardiology, neurology, gi, general surgery, nephrology, palliative care were consulted during the course of hospitalization. Patient's family updated throughout the course of hospitalization. Patient's code status changed during the course of hospital. Patient's family in light of most recent video eeg and discussions with critical care and neurology, have elected for terminal extubation today. Autopsy requested by family. Patient was terminal extubated on 04/27/18 and pronounced expiration on 22:22 on 04/27/18. The following studies have been performed: Video EEG (04/26/18): official report pending; reviewed by neurologist today noted. The patient's EEG is flat and no significant cortical activity noted. This corresponds to the MRI that I discussed with the family before. Clinically, the patient does not appear to have any cortical activity. 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 Further clinical correlation advised. No definite lobar brain infarction identified. Video EEG (04/18/18): This is an abnormal video EEG. Shows GPEDS, and BIPLEDs, indicative of severe anoxic injury. There are no seizures at this time. CT Head (04/18/18): Probable diffuse hypoxic insult with diffuse cerebral edema and loss of pablo/white matter differentiation. NO evidence of herniation. NO focal vascular territorial infarct. Chronis pansinusitis. Mild nonspecific bilateral mastoid effusion. EEG (04/15/18): This is an abnormal EEG record that demonstrate the presence of severe non specific diffuse disturbance of cortical activity, this is keeping with a diffuse pablo matter dysfunction, these findings are not specific. There were rhythmic muscle artifact seen, most likely mycolonus, this are usually seen in hypoxic brain insults, please correlate clinically. No seizures. Patient is not in status epilepticus CT Head (04/15/18): Extensive diffuse homogeneous appearance of the brain parenchyma with loss of the cortico-medullary distinction and on diminution of cerebral sulci. Findings consistent with sequela diffuse hypoxia. CT Head (04/14/18): Little interval change in mild diffuse effacement of cortical sulci and indistinct pablo-white matter differentiation related to hypoxic-anoxic insult with the stated clinical history. CT Head (04/13/18): No acute intracranial hemorrhage. There is mild homogeneous appearance of the brain parenchyma with subtle indistinct appearance of the cortico-medullary junction. Findings could represent mild diffuse cerebral edema related to hypoxia however clinical correlation suggested. This is a brief summary of patient's hospital course. Please refer to EMR for full detail of record. Discharge diagnoses: 1) via terminal extubation elected by family 2) DNR 3) Anoxic Brain Injury 4) Acute Respiratory Failure 5) Cardiac Arrest 6) Seizures 7) history of hypothyrodism 8) history of obesity + opiates noted on urine drug screen - Date & Time of H&P Date of H&P: 04/13/18 Time of H&P: 12:00 Discharge Plan - Follow Up Plan Condition: Disposition: WITH WITHOUT AUTOPSY
--- NOTE | 2018-04-27 23:16 | CP.PCM.PN ---
Subjective - Date & Time of Evaluation Date of Evaluation: 04/27/18 Time of Evaluation: 09:05 - Subjective Subjective: Patient seen, examined this morning. No family members present at bedside. unable to ROS secondary to clinical condition. Objective - Vital Signs/Intake and Output Vital Signs (last 24 hours): Temp Pulse Resp BP Pulse Ox 98.5 F 68 18 113/71 96 04/27/18 04:00 04/27/18 08:00 04/27/18 08:00 04/27/18 07:27 04/27/18 08:00 Intake and Output: 04/27/18 04/27/18 06:59 18:59 Intake Total 850 50 Output Total 700 Balance 150 50 - Medications Medications: Current Medications Acetaminophen (Tylenol 650mg/20.3ml Solution Ud) 650 mg PO Q6 PRN PRN Reason: Temperaure >100.4 Last Admin: 04/22/18 06:02 Dose: 650 mg Albuterol/Ipratropium (Duoneb 3 Mg/0.5 Mg (3 Ml) Ud) 3 ml INH RQ4 [facility] Last Admin: 04/27/18 08:05 Dose: 3 ml Aspirin (Aspirin Chewable) 81 mg PO DAILY [facility] Last Admin: 04/26/18 09:28 Dose: 81 mg Chlordiazepoxide (Librium) 10 mg PO Q8 PRN PRN Reason: Agitation Heparin Sodium (Porcine) (Heparin) 5,000 units SC Q8 [facility] Last Admin: 04/27/18 06:10 Dose: 5,000 units Valproate Sodium 1,000 mg/ (Sodium Chloride) 110 mls @ 100 mls/hr IVPB Q12H [facility] Last Admin: 04/27/18 06:10 Dose: 100 mls/hr Lacosamide 100 mg/ Sodium (Chloride) 60 mls @ 100 mls/hr IVPB Q12H [facility] Last Admin: 04/26/18 20:12 Dose: 100 mls/hr Levetiracetam 1,500 mg/ (Dextrose) 115 mls @ 420 mls/hr IVPB Q12H [facility] Last Admin: 04/27/18 05:43 Dose: 420 mls/hr Insulin Aspart (Novolog) 0 unit SC Q6 [facility]; Protocol Last Admin: 04/27/18 06:10 Dose: 2 unit Levothyroxine Sodium (Synthroid) 75 mcg PO DAILY@0630 [facility] Last Admin: 04/27/18 06:17 Dose: 75 mcg Methylprednisolone (Solu-Medrol) 40 mg IVP Q6H [facility] Last Admin: 04/27/18 03:59 Dose: 40 mg Pantoprazole Sodium (Protonix Susp) 40 mg GT DAILY [facility] Last Admin: 04/26/18 09:28 Dose: 40 mg Rosuvastatin Calcium (Crestor) 5 mg PO HS [facility] Last Admin: 04/26/18 22:00 Dose: 5 mg - Labs Labs: 04/27/18 06:20 04/27/18 06:20 PT 13.1 SECONDS (9.7-12.2) H 04/23/18 04:20 INR 1.2 04/23/18 04:20 APTT 30 SECONDS (21-34) 04/23/18 04:20 - Constitutional Appears: Non-toxic, No Acute Distress - Head Exam Head Exam: NORMAL INSPECTION Additional comments: intubated - Respiratory Exam Respiratory Exam: Decreased Breath Sounds Additional comments: intubated - Cardiovascular Exam Cardiovascular Exam: REGULAR RHYTHM, +S1, +S2 - GI/Abdominal Exam GI & Abdominal Exam: Soft, Hypoactive Bowel Sounds. absent: Distended, Firm, Guarding, Rigid, Tenderness, Rebound - Extremities Exam Additional comments: prevalon boots Assessment and Plan (1) Cardiac arrest Status: Acute (2) Anoxic brain injury Status: Acute (3) STEMI (ST elevation myocardial infarction) Status: Acute (4) Leukocytosis Status: Acute (5) Transaminitis Status: Acute (6) Myoclonic jerking Status: Acute (7) Prophylactic measure Status: Acute Attending/Attestation - Attestation I have personally seen and examined this patient.: Yes I have fully participated in the care of the patient.: Yes I have reviewed all pertinent clinical information, including history, physical exam and plan: Yes Notes (Text): 43 year old male who was admitted after cardiopulmonary arrest. Anoxic brain inj ury is suspected. He is currently intubated and on Vimpat,Propofol and Valproic Acid. Hypothermic protocol was completed 04/15/18. Neurology Dr. Snider is on board and has informed Son Jer and of poor prognosis during course of hospitalization. Dr. Escobar has went over the most recent MRI with the patient's son at bedside. Patient has completed video eeg yesterday. Patient's code status is presently Full Code. In review of prior notes, the ICU doctors have spoken with family extensively and is currently in the process of arranging transfer to [facility] as per the family's request. transfer was denied per insurance. Case management is aware. I spoke with patient's son on 04/24/18. we had quite of bit of discussion, he voices his dad has told his and mother if he was ever a vegetable that he would never want being on machine etc. Son reports he feels pressure to make the right choice in regards to the patient. I re-emphasized to the patient's son, as the acting healthy proxy that his role is to act according to the wishes of the patient and i spoke nursing, charge nurse as well, and advised roll contour grinder for spiritual sport. Patient is on Librium and Methadone per ICU to cover for opioid withdrawal. 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 Further clinical correlation advised. No definite lobar brain infarction identified. EEG presently on going 1). Video EEG (04/18/18): This is an abnormal video EEG. Shows GPEDS, and BIPLEDs, indicative of severe anoxic injury. There are no seizures at this time. 2). CT Head (04/18/18): Probable diffuse hypoxic insult with diffuse cerebral edema and loss of pablo/white matter differentiation. NO evidence of herniation. NO focal vascular territorial infarct. Chronis pansinusitis. Mild nonspecific bi lateral mastoid effusion. 3). EEG (04/15/18): This is an abnormal EEG record that demonstrate the presence of severe non specific diffuse disturbance of cortical activity, this is keeping with a diffuse pablo matter dysfunction, these findings are not specific. There were rhythmic muscle artifact seen, most likely mycolonus, this are usually seen in hypoxic brain insults, please correlate clinically. No seizures. Patient is not in status epilepticus 4). CT Head (04/15/18): Extensive diffuse homogeneous appearance of the brain parenchyma with loss of the cortico-medullary distinction and on diminution of cerebral sulci. Findings consistent with sequela diffuse hypoxia. 5). CT Head (04/14/18): Little interval change in mild diffuse effacement of cortical sulci and indistinct pablo-white matter differentiation related to hypoxic-anoxic insult with the stated clinical history. 6). CT Head (04/13/18): No acute intracranial hemorrhage. There is mild homogeneous appearance of the brain parenchyma with subtle indistinct appearance of the cortico-medullary junction. Findings could represent mild diffuse cerebral edema related to hypoxia however clinical correlation suggested. He is on the following medications: Lacosamide 100 mg IV Q12H Valproate 1,000 mg IV Q12H Vancomycin 1 gm IV Q24H Levothyroxine 75 mcg via OGT 1x/day Protonix 40 mg gt Q24H Heparin 5,000 Units SC Q8H Aspart ISS Q6H Jevity @ 50 ml/hr Keppra 1500mg [id number] ROS is not possible due to patient unresponsiveness General: Intubated on vent with NGT, no jerking movements HEENT: no doll eyes, twitching eye movements Cardio: NS1 and NS2, NO M/R/G Resp: Breath sounds, decreased, soft nontender GI: Central Obesity, BS are decreased in all 4 quadrants, Soft, no guarding Ext: Pulses are strong and equal upper and lower extremities, NO edema, Capillary refill is 2 seconds Neuro: exam is not possible, patient appears comatose, negative babinski, Assessments: 1). Anoxic Brain Injury Status: Acute * neuro on board * sedation orders noted * see imaging as above 2). Acute Respiratory Failure Status: Acute * intubated and sedated 3). Cardiac Arrest Status: Acute * Cardiology on board * Normal coronaries per cath 4). Myoclonic Movements Status: Acute * see sedation orders as over 5). Leukocytosis Status: Acute * Secondary to IV steroids started 04/25/18 * Blood cultures from 04/19/17: negative * urine culture (04/19/18): no growth * Urine culture (04/20/18): gram negative andrew (<10,000 CFU) * on vancomcyin * tylenol prn for fever * procalcitonin: 0.38 (04/13/18) * official report 04/18/18 venous doppler: none 6). Hx Hypothyroidism Status: Chronic * patient is on Synthroid 75mcg PO am * elevated TSH today (8) 7) prophylactic measure * protonix 40mg gt daily * Heparin 5000unit subq 8H * Poor prognosis * PICC line Objective - Vital Signs/Intake and Output Vital Signs (last 24 hours): Temp Pulse Resp BP Pulse Ox 98.5 F 74 14 83/50 L 90 L 04/27/18 20:00 04/27/18 21:27 04/27/18 21:27 04/27/18 21:27 04/27/18 21:27 Intake and Output: 04/27/18 04/28/18 18:59 06:59 Intake Total 546 60 Balance 546 60 - Medications Medications: Current Medications Acetaminophen (Tylenol 650mg/20.3ml Solution Ud) 650 mg PO Q6 PRN PRN Reason: Temperaure >100.4 Last Admin: 04/22/18 06:02 Dose: 650 mg Albuterol/Ipratropium (Duoneb 3 Mg/0.5 Mg (3 Ml) Ud) 3 ml INH RQ4 [facility] Last Admin: 04/27/18 20:08 Dose: Not Given Aspirin (Aspirin Chewable) 81 mg PO DAILY [facility] Last Admin: 04/27/18 10:26 Dose: 81 mg Chlordiazepoxide (Librium) 10 mg PO Q8 PRN PRN Reason: Agitation Glycopyrrolate (Robinul) 0.1 mg IV Q3H PRN PRN Reason: Other Heparin Sodium (Porcine) (Heparin) 5,000 units SC Q8 [facility] Last Admin: 04/27/18 21:40 Dose: 5,000 units Valproate Sodium 1,000 mg/ (Sodium Chloride) 110 mls @ 100 mls/hr IVPB Q12H [facility] Last Admin: 04/27/18 17:51 Dose: Not Given Lacosamide 100 mg/ Sodium (Chloride) 60 mls @ 100 mls/hr IVPB Q12H [facility] Last Admin: 04/27/18 20:00 Dose: 100 mls/hr Levetiracetam 1,500 mg/ (Dextrose) 115 mls @ 420 mls/hr IVPB Q12H [facility] Last Admin: 04/27/18 17:52 Dose: Not Given Morphine Sulfate 250 mg/ (Sodium Chloride) 250 mls @ 6 mls/hr IV .Q24H PRN; Protocol PRN Reason: Pain, severe (8-10) Last Admin: 04/27/18 20:50 Dose: 20 mls/hr, 20 mls/hr Insulin Aspart (Novolog) 0 unit SC Q6 [facility]; Protocol Last Admin: 04/27/18 17:52 Dose: Not Given Levothyroxine Sodium (Synthroid) 75 mcg PO DAILY@0630 [facility] Last Admin: 04/27/18 06:17 Dose: 75 mcg Methylprednisolone (Solu-Medrol) 40 mg IVP Q6H [facility] Last Admin: 04/27/18 21:39 Dose: 40 mg Pantoprazole Sodium (Protonix Susp) 40 mg GT DAILY [facility] Last Admin: 04/27/18 10:26 Dose: 40 mg Rosuvastatin Calcium (Crestor) 5 mg PO HS [facility] Last Admin: 04/27/18 22:11 Dose: Not Given - Labs Labs: 04/27/18 06:20 04/27/18 06:20 PT 13.1 SECONDS (9.7-12.2) H 04/23/18 04:20 INR 1.2 04/23/18 04:20 APTT 30 SECONDS (21-34) 04/23/18 04:20
== END 2018-04-28 00:58 | DRG 207 ==
LOC: C.ER 10:36 → EEVIPCON 10:59 → C.9I 10:59 → EDBD 10:59
PROVIDERS: ADMIT Hospitalist; ATTEND Hospitalist
PROC: 5A1955Z Respiratory Ventilation, Greater than 96 Consecutive Hours (ICD-10-PCS; principal; 2018-04-13)
PROC: 4A023N7 Measurement of Cardiac Sampling and Pressure, Left Heart, Percutaneous Approach (ICD-10-PCS; 2018-04-13)
PROC: 0BH17EZ Insertion of Endotracheal Airway into Trachea, Via Natural or Artificial Opening (ICD-10-PCS; 2018-04-13)
PROC: 3E033XZ Introduction of Vasopressor into Peripheral Vein, Percutaneous Approach (ICD-10-PCS; 2018-04-13)
PROC: B2111ZZ Fluoroscopy of Multiple Coronary Arteries using Low Osmolar Contrast (ICD-10-PCS; 2018-04-13)
PROC: B2151ZZ Fluoroscopy of Left Heart using Low Osmolar Contrast (ICD-10-PCS; 2018-04-13)
PROC: 4A00X4Z Measurement of Central Nervous Electrical Activity, External Approach (ICD-10-PCS; 2018-04-15)
DX: J96.01 Acute respiratory failure with hypoxia (principal); K72.01 Acute and subacute hepatic failure with coma; G93.6 Cerebral edema; G93.1 Anoxic brain damage, not elsewhere classified; I20.1 Angina pectoris with documented spasm; E78.00 Pure hypercholesterolemia, unspecified; R57.0 Cardiogenic shock; E03.9 Hypothyroidism, unspecified; E87.6 Hypokalemia; E66.9 Obesity, unspecified; F11.90 Opioid use, unspecified, uncomplicated; G40.901 Epilepsy, unspecified, not intractable, with status epilepticus; G47.30 Sleep apnea, unspecified; I10 Essential (primary) hypertension; Z51.5 Encounter for palliative care; Z66 Do not resuscitate